=== PATIENT | female | born 1960 | race Caucasian/White ===

== ENCOUNTER 2021-10-09 23:21 | Inpatient (IN) | payer MEDICARE, OTHER ==
[2021-10-10] MEDS ORDERED: ONDANSETRON 4 MG/2 ML VIAL IVP STA (00:50)
[2021-10-10] MEDS ORDERED: MORPHINE SULFATE 4 MG/ML SYRINGE IVP STA (00:50)
[2021-10-10 00:55] LABS: Albumin 2.7 g/dL (3.5-5.0); Calcium 8.1 mg/dL (8.4-10.2); Potassium 3.7 mmol/L (3.5-5.1); Total Bilirubin 0.4 mg/dL (0.2-1.3); Total Protein 5.4 g/dL (6.3-8.2)
--- NOTE | 2021-10-10 01:30 | US ---
EXAMINATION TYPE: US transvaginal DATE OF EXAM: 10/10/2021 COMPARISON: NONE CLINICAL HISTORY: Heavy vaginal bleeding. Heavy vaginal bleeding. Hx ablation in 1994. G0. LMP unknow n per patient. TECHNIQUE: Transvaginal (TV). Limited, pt is 417 lbs. Date of LMP: Unknown. EXAM MEASUREMENTS: Uterus: Measured at 8.4 x 6.1 x 5.5 cm. Limited. 1. Uterus: What appears to be uterine tissue within the midline pelvis appears to be very heterogene ous. Hyperechoic area seen measurin.1 x 0.9 x 0.7 cm. 2. Endometrium: Unable to define. 3. Right Ovary: Not seen. 4. Left Ovary: Not seen. 5. Bilateral Adnexa: Not able to clearly evaluate. 6. Posterior cul-de-sac: Not well seen. IMPRESSION: Uterus appears globular. Endometrium not identified. No adnexal mass. Ovaries not seen. No free fluid .
[2021-10-10 01:31] LABS: INR 3.4 (<1.2); Prothrombin Time 33.1 sec (9.0-12.0)
[2021-10-10 01:58] LABS: Anisocytosis Slight; Basophils % (A) 0 %; Eosinophils # (A) 0.2 k/uL (0-0.7); Eosinophils % (A) 2 %; Hypochromasia Marked; Lymphocytes # (A) 0.8 k/uL (1.0-4.8); Lymphocytes % (A) 8 %; MCH 20.8 pg (25.0-35.0); MCHC 28.4 g/dL (31.0-37.0); MCV 73.1 fL (80.0-100.0); Mean Platelet Volume 7.5; Microcytosis Moderate; Monocytes # (A) 0.6 k/uL (0-1.0); Monocytes % (A) 6 %; Neutrophils # (A) 8.2 k/uL (1.3-7.7); Neutrophils % (A) 82 %; Platelet Count 373 k/uL (150-450); Poikilocytosis Moderate; RBC 2.74 m/uL (3.80-5.40); RDW 17.2 % (11.5-15.5)
[2021-10-10 02:00] LABS: HGB 5.7 gm/dL (11.4-16.0)
--- NOTE | 2021-10-10 03:32 | P.OBCN ---
History of Present Illness Consult date: 10/10/21 Requesting physician: Jessica Severino Reason for consult: other (Post Menopausal bleeding) Chief complaint: Postmenopausal bleeding History of present illness: Fiorella is a very pleasant, morbidly obese 61-year-old female. She is a 0 para 0 who relates that for the past year she has had some light spotting. She relates that she told her primary care provider at one point and they believe she may have a bladder infection so they started her on antibiotic. She denies having any period-like bleeding until this evening. At approximately 7:30 this evening she began having very heavy vaginal bleeding that did not stop. She called EMS and was brought to [facility] emergency department where her hemoglobin is noted to be 5.7. She is in the process of receiving 2 units of packed red blood cells at this time. An ultrasound was done showing was essentially normal size uterus but it is somewhat globular and heterogeneous. The endometrium noted is not clearly visualized but she it is noted she did have a ablation procedure in 1994 by a physician at a specialty Hospital in the city due to her morbid obesity. She has not had a Pap smear in she cannot tell me how long. She has no idea if she is ever had an abnormal Pap smear she relates that she was up doing housework when she noticed bleeding start. She denies any recent trauma or lacerations in around the vagina. Her past medical history is significant for hypertension, heart disease, diabetes, and atrial fibrillation for which she is taking Coumadin Past surgical history prior ablation of the uterus and nasal surgery On physical exam currently her vital signs are stable. I did do a bimanual exam and could feel the cervix. The left side of the cervix felt smooth the right side is a little more difficult to determine. I did not feel any fungating masses course sponge for masses on the outer cervix and its with in dimension did not feel grossly out of what I would expect. There were blood clots in the vagina. There is no grossly active bleeding that I know on exam. She did not tolerate and refused a speculum exam. She did have a transvaginal ultrasound also did not identify any cervical changes. Assessment postmenopausal bleeding with acute blood loss anemia compounded by significant medical issues including concurrent INR of above 3. This level may be a correct level for her due to her increased risk of blood clots sedentary lifestyle and her atrial fibrillation. But it is most certainly contributing to the amount of bleeding she is doing now Plan at some point she will need A Tissue Sampling from the Lining of the Uterus with Direct Visualization of the Cervix. It Is Unlikely She Would Tolerate This without Being under Anesthetic. However, She Is Significant Risk Factors for S urgery and Consideration for Tertiary Care Center Should Be Made in the off Chance That Something Does Happen during the Process of Biopsy and a perforation or inability to control bleeding is encountered. It would be very difficult to change from a D&C to a hysterectomy in an emergent setting like that due to her large body habitus and other medical issues. I did discuss the possibility of doing a D&C here which I would be fine with if that is what is required. That said, I would want medicine and hematology to clear her as well as potentially cardiology before taking her to surgery so that she is optimized for surgery. It is also noted that she has been drinking water and pop all evening and at this time she would not be eligible to have surgery unless the bleeding was significantly heavier than it is right now as she is not nothing by mouth. Certainly consideration for making her nothing by mouth tonight at midnight and planning for a director special education D&C on Saturday, October 11 would hopefully allow us time to have her optimized for surgery and decide if any other treatments or consideration for again potential transfer to either [facility] another tertiary care center are warranted. Past Medical History Past Medical History: Atrial Fibrillation, Diabetes Mellitus, Hypertension, Thyroid Disorder History of Any Multi-Drug Resistant Organisms: None Reported Past Surgical History: Ablation Additional Past Surgical History / Comment(s): Ablation in Smoking Status: Never smoker Past Alcohol Use History: None Reported Past Drug Use History: None Reported Medications and Allergies Allergies Allergy/AdvReac Type Severity Reaction Status Date / Time No Known Allergies Allergy Verified 10/10/21 01:29 Exam Osteopathic Statement: *. No significant issues noted on an osteopathic structu ral exam other than those noted in the History and Physical/Consult. Vital Signs Temp Pulse Resp BP Pulse Ox 10/10/21 03:15 98.1 F 58 L 18 135/53 96 10/10/21 01:20 61 18 116/49 98 10/09/21 23:39 64 18 99 10/09/21 23:30 97.9 F 64 18 147/63 99 Intake and Output 10/09/21 10/09/21 10/10/21 14:59 22:59 06:59 Intake Total 0 Balance 0 Intake: Blood Product 0 Rc Irr As1 Unit 0 [id number] Other: Weight 189.148 kg Results Result Diagrams: 10/10/21 01:15 10/10/21 00:16 Abnormal Lab Results - Last 24 Hours (Table) 10/10/21 10/10/21 10/10/21 Range/Units 00:16 00:16 01:15 RBC (3.80-5.40) m/uL Hgb (11.4-16.0) gm/dL Hct (34.0-46.0) % MCV (80.0-100.0) fL MCH (25.0-35.0) pg MCHC (31.0-37.0) g/dL RDW (11.5-15.5) % Neutrophils # (1.3-7.7) k/uL Lymphocytes # (1.0-4.8) k/uL PT 33.1 H (9.0-12.0) sec INR 3.4 H (<1.2) Sodium 133 L (137-145) mmol/L Carbon Dioxide 21 L (22-30) mmol/L BUN 19 H (7-17) mg/dL Creatinine 1.06 H (0.52-1.04) mg/dL Glucose 214 H (74-99) mg/dL Calcium 8.1 L (8.4-10.2) mg/dL Total Protein 5.4 L (6.3-8.2) g/dL Albumin 2.7 L (3.5-5.0) g/dL Crossmatch See Detail 10/10/21 Range/Units 01:15 RBC 2.74 L (3.80-5.40) m/uL Hgb 5.7 L* (11.4-16.0) gm/dL Hct 20.0 L (34.0-46.0) % MCV 73.1 L (80.0-100.0) fL MCH 20.8 L (25.0-35.0) pg MCHC 28.4 L (31.0-37.0) g/dL RDW 17.2 H (11.5-15.5) % Neutrophils # 8.2 H (1.3-7.7) k/uL Lymphocytes # 0.8 L (1.0-4.8) k/uL PT (9.0-12.0) sec INR (<1.2) Sodium (137-145) mmol/L Carbon Dioxide (22-30) mmol/L BUN (7-17) mg/dL Creatinine (0.52-1.04) mg/dL Glucose (74-99) mg/dL Calcium (8.4-10.2) mg/dL Total Protein (6.3-8.2) g/dL Albumin (3.5-5.0) g/dL Crossmatch
[2021-10-10 03:36] LABS: Appearance,Urine Clear (Clear); Bacteria,Urine Many /hpf; Bilirubin,Urine Negative (Negative); Blood,Urine Moderate (Negative); Color,Urine Yellow; Glucose,Urine (UA) Negative (Negative); Hyaline Casts,Urine 42 /lpf (0-2); Ketones,Urine Negative (Negative); Leukocyte Esterase,Urine Trace (Negative); Mucus,Urine Occasional /hpf; Nitrite,Urine Positive (Negative); PH, Urine 5.5 (5.0-8.0); Protein,Urine Trace (Negative); RBC,Urine 19 /hpf (0-5); Specific Gravity,Urine 1.025 (1.001-1.035); Squamous Epithelial Cell,Urine <1 /hpf (0-4); WBC,Urine 6 /hpf (0-5)
[2021-10-10] MEDS ORDERED: cefTRIAXone IN SWFI 1,000 MG/10 ML SYRINGE IVP STA (03:38)
[2021-10-10] MEDS ORDERED: NALOXONE 0.4 MG/ML 1 ML VIAL IV PRN (03:40)
[2021-10-10] MEDS ORDERED: PHYTONADIONE ORAL 5 MG/5 ML ORAL.SYRG PO STA (03:40)
--- NOTE | 2021-10-10 04:19 | ED ---
General Adult HPI - General Chief complaint: Vaginal Bleeding Stated complaint: Vaginal Bleeding Time Seen by Provider: 10/09/21 23:48 Source: patient, EMS Mode of arrival: EMS - History of Present Illness Initial comments: 61 year-old female patient present presents for heavy vaginal bleeding since 7pm. States she is passing large clots frequently. She reports left pelvic pain with radiation to her back. Reports feeling fatigued and weak. Denies shortness of breath. States she did have a uterine ablation in 1994. States it has been many years since she has seen a straightener hand. States that her physician at one point thought she might of had a bad bladder infection with hemorrhagic cystitis. Patient states she has had intermittent bleeding at nighttime for quite some time now. States this is the worst the bleeding has ever been. She does take Coumadin for atrial fibrillation. Patient denies any recent rash, fever, chills, cough, shortness of breath, chest pain, nausea, vomiting, diarrhea, constipation, numbness, tingling, headache, visual changes, or any other complaints. - Related Data Allergies Allergy/AdvReac Type Severity Reaction Status Date / Time No Known Allergies Allergy Verified 10/10/21 01:29 Review of Systems ROS Statement: Those systems with pertinent positive or pertinent negative responses have been documented in the HPI. ROS Other: All systems not noted in ROS Statement are negative. Past Medical History Past Medical History: Atrial Fibrillation, Diabetes Mellitus, Hypertension, Thyroid Disorder History of Any Multi-Drug Resistant Organisms: None Reported Past Surgical History: Ablation Additional Past Surgical History / Comment(s): Ablation in Smoking Status: Never smoker Past Alcohol Use History: None Reported Past Drug Use History: None Reported General Exam General appearance: alert, in no apparent distress, other (This is a well- developed, obese adult female patient in no acute distress.) ENT exam: Present: normal exam, normal oropharynx, mucous membranes moist Respiratory exam: Present: normal lung sounds bilaterally. Absent: respiratory distress, wheezes, rales, rhonchi, stridor Cardiovascular Exam: Present: regular rate, normal rhythm, normal heart sounds. Absent: systolic murmur, diastolic murmur, rubs, gallop, clicks GI/Abdominal exam: Present: soft, normal bowel sounds. Absent: distended, tenderness, guarding, rebound, rigid External exam: Present: other (Blood clots from the vaginal canal.) Neurological exam: Present: alert, oriented X3, CN II-XII intact Psychiatric exam: Present: normal affect, normal mood Skin exam: Present: warm, dry, intact, pallor. Absent: rash Course Vital Signs 10/09/21 10/09/21 10/10/21 23:30 23:39 01:20 Temperature 97.9 F Pulse Rate 64 64 61 Respiratory 18 18 18 Rate Blood Pressure 147/63 116/49 O2 Sat by Pulse 99 99 98 Oximetry 10/10/21 10/10/21 10/10/21 03:15 03:25 03:55 Temperature 98.1 F 98.2 F 98.7 F Pulse Rate 58 L 60 54 L Respiratory 18 20 18 Rate Blood Pressure 135/53 140/48 114/45 O2 Sat by Pulse 96 96 97 Oximetry 10/10/21 04:03 Temperature Pulse Rate 55 L Respiratory 18 Rate Blood Pressure 114/45 O2 Sat by Pulse 96 Oximetry EKG Findings - EKG Comments: EKG Findings:: EKG obtained at 11 26 shows normal sinus rhythm with a ventricular rate of 62, RI interval 196, QRS duration 82, QT 436, QTc 442. No evidence of ST elevation or depression Medical Decision Making - Medical Decision Making 61-year-old female patient presents to the emergency department today for evaluation of heavy vaginal bleeding with passage of large clots. Vital signs were directable. Labs reviewed and did reveal hemoglobin of 5.7. Patient did pass several large clots while here. Dr. Nathan was in to evaluate the patient. She'll be admitted to the hospital for further evaluation possible D&C. We'll consult hematology. He is given 2 units of packed red blood cells. She is agreeable this plan. Case discussed with my attending Dr. Guerra. - Lab Data Result diagrams: 10/10/21 01:15 10/10/21 00:16 Lab Results 10/10/21 10/10/21 10/10/21 Range/Units 00:16 00:16 01:15 WBC (3.8-10.6) k/uL RBC (3.80-5.40) m/uL Hgb (11.4-16.0) gm/dL Hct (34.0-46.0) % MCV (80.0-100.0) fL MCH (25.0-35.0) pg MCHC (31.0-37.0) g/dL RDW (11.5-15.5) % Plt Count (150-450) k/uL MPV Neutrophils % % Lymphocytes % % Monocytes % % Eosinophils % % Basophils % % Neutrophils # (1.3-7.7) k/uL Lymphocytes # (1.0-4.8) k/uL Monocytes # (0-1.0) k/uL Eosinophils # (0-0.7) k/uL Basophils # (0-0.2) k/uL Hypochromasia Poikilocytosis Anisocytosis Microcytosis PT 33.1 H (9.0-12.0) sec INR 3.4 H (<1.2) Sodium 133 L (137-145) mmol/L Potassium 3.7 (3.5-5.1) mmol/L Chloride 105 (98-107) mmol/L Carbon Dioxide 21 L (22-30) mmol/L Anion Gap 7 mmol/L BUN 19 H (7-17) mg/dL Creatinine 1.06 H (0.52-1.04) mg/dL Est GFR (CKD-EPI)AfAm 65 (>60 ml/min/1.73 sqM) Est GFR (CKD-EPI)NonAf 57 (>60 ml/min/1.73 sqM) Glucose 214 H (74-99) mg/dL Calcium 8.1 L (8.4-10.2) mg/dL Total Bilirubin 0.4 (0.2-1.3) mg/dL AST 21 (14-36) U/L ALT 11 (4-34) U/L Alkaline Phosphatase 75 (38-126) U/L Total Protein 5.4 L (6.3-8.2) g/dL Albumin 2.7 L (3.5-5.0) g/dL Urine Color Urine Appearance (Clear) Urine pH (5.0-8.0) Ur Specific [place] (1.001-1.035) Urine Protein (Negative) Urine Glucose (UA) (Negative) Urine Ketones (Negative) Urine Blood (Negative) Urine Nitrite (Negative) Urine Bilirubin (Negative) Urine Urobilinogen (<2.0) mg/dL Ur Leukocyte Esterase (Negative) Urine RBC (0-5) /hpf Urine WBC (0-5) /hpf Urine WBC Clumps (None) /hpf Ur Squamous Epith Cells (0-4) /hpf Urine Bacteria (None) /hpf Hyaline Casts (0-2) /lpf Urine Mucus (None) /hpf Urine HCG, Qual (Not Detectd) Blood Type AB Positive Blood Type Confirm Blood Type Recheck No Previous Record Bld Type Recheck Status CABO Indicated Antibody Screen NEGATIVE Crossmatch See Detail Spec Expiration Date 10/13/2021 - 231410/10/21 10/10/21 10/10/21 Range/Units 01:15 01:17 02:49 WBC 10.0 (3.8-10.6) k/uL RBC 2.74 L (3.80-5.40) m/uL Hgb 5.7 L* (11.4-16.0) gm/dL Hct 20.0 L (34.0-46.0) % MCV 73.1 L (80.0-100.0) fL MCH 20.8 L (25.0-35.0) pg MCHC 28.4 L (31.0-37.0) g/dL RDW 17.2 H (11.5-15.5) % Plt Count 373 (150-450) k/uL MPV 7.5 Neutrophils % 82 % Lymphocytes % 8 % Monocytes % 6 % Eosinophils % 2 % Basophils % 0 % Neutrophils # 8.2 H (1.3-7.7) k/uL Lymphocytes # 0.8 L (1.0-4.8) k/uL Monocytes # 0.6 (0-1.0) k/uL Eosinophils # 0.2 (0-0.7) k/uL Basophils # 0.0 (0-0.2) k/uL Hypochromasia Marked Poikilocytosis Moderate Anisocytosis Slight Microcytosis Moderate PT (9.0-12.0) sec INR (<1.2) Sodium (137-145) mmol/L Potassium (3.5-5.1) mmol/L Chloride (98-107) mmol/L Carbon Dioxide (22-30) mmol/L Anion Gap mmol/L BUN (7-17) mg/dL Creatinine (0.52-1.04) mg/dL Est GFR (CKD-EPI)AfAm (>60 ml/min/1.73 sqM) Est GFR (CKD-EPI)NonAf (>60 ml/min/1.73 sqM) Glucose (74-99) mg/dL Calcium (8.4-10.2) mg/dL Total Bilirubin (0.2-1.3) mg/dL AST (14-36) U/L ALT (4-34) U/L Alkaline Phosphatase (38-126) U/L Total Protein (6.3-8.2) g/dL Albumin (3.5-5.0) g/dL Urine Color Yellow Urine Appearance Clear (Clear) Urine pH 5.5 (5.0-8.0) Ur Specific [place] 1.025 (1.001-1.035) Urine Protein Trace H (Negative) Urine Glucose (UA) Negative (Negative) Urine Ketones Negative (Negative) Urine Blood Moderate H (Negative) Urine Nitrite Positive H (Negative) Urine Bilirubin Negative (Negative) Urine Urobilinogen 2.0 (<2.0) mg/dL Ur Leukocyte Esterase Trace H (Negative) Urine RBC 19 H (0-5) /hpf Urine WBC 6 H (0-5) /hpf Urine WBC Clumps Rare H (None) /hpf Ur Squamous Epith Cells <1 (0-4) /hpf Urine Bacteria Many H (None) /hpf Hyaline Casts 42 H (0-2) /lpf Urine Mucus Occasional H (None) /hpf Urine HCG, Qual (Not Detectd) Blood Type Blood Type Confirm AB Positive Blood Type Recheck Bld Type Recheck Status Antibody Screen Crossmatch Spec Expiration Date 10/10/21 Range/Units 02:49 WBC (3.8-10.6) k/uL RBC (3.80-5.40) m/uL Hgb (11.4-16.0) gm/dL Hct (34.0-46.0) % MCV (80.0-100.0) fL MCH (25.0-35.0) pg MCHC (31.0-37.0) g/dL RDW (11.5-15.5) % Plt Count (150-450) k/uL MPV Neutrophils % % Lymphocytes % % Monocytes % % Eosinophils % % Basophils % % Neutrophils # (1.3-7.7) k/uL Lymphocytes # (1.0-4.8) k/uL Monocytes # (0-1.0) k/uL Eosinophils # (0-0.7) k/uL Basophils # (0-0.2) k/uL Hypochromasia Poikilocytosis Anisocytosis Microcytosis PT (9.0-12.0) sec INR (<1.2) Sodium (137-145) mmol/L Potassium (3.5-5.1) mmol/L Chloride (98-107) mmol/L Carbon Dioxide (22-30) mmol/L Anion Gap mmol/L BUN (7-17) mg/dL Creatinine (0.52-1.04) mg/dL Est GFR (CKD-EPI)AfAm (>60 ml/min/1.73 sqM) Est GFR (CKD-EPI)NonAf (>60 ml/min/1.73 sqM) Glucose (74-99) mg/dL Calcium (8.4-10.2) mg/dL Total Bilirubin (0.2-1.3) mg/dL AST (14-36) U/L ALT (4-34) U/L Alkaline Phosphatase (38-126) U/L Total Protein (6.3-8.2) g/dL Albumin (3.5-5.0) g/dL Urine Color Urine Appearance (Clear) Urine pH (5.0-8.0) Ur Specific [place] (1.001-1.035) Urine Protein (Negative) Urine Glucose (UA) (Negative) Urine Ketones (Negative) Urine Blood (Negative) Urine Nitrite (Negative) Urine Bilirubin (Negative) Urine Urobilinogen (<2.0) mg/dL Ur Leukocyte Esterase (Negative) Urine RBC (0-5) /hpf Urine WBC (0-5) /hpf Urine WBC Clumps (None) /hpf Ur Squamous Epith Cells (0-4) /hpf Urine Bacteria (None) /hpf Hyaline Casts (0-2) /lpf Urine Mucus (None) /hpf Urine HCG, Qual Not Detected (Not Detectd) Blood Type Blood Type Confirm Blood Type Recheck Bld Type Recheck Status Antibody Screen Crossmatch Spec Expiration Date - Radiology Data Radiology results: report reviewed, image reviewed Sound was obtained. Report was reviewed in its entirety. Impression by Dr. Miles shows uterus appears globular. Endometrium not identified. No adnexal mass. Ovaries not seen. No free fluid. Disposition Clinical Impression: Vaginal hemorrhage, Anemia, UTI (urinary tract infection) Disposition: ADMITTED IP TO THIS HOSP Condition: Serious Referrals: CASSANDRA MONTANO DO [Primary Care Provider] - 1-2 days Decision to Admit Reason: Admit from EC Decision Date: 10/10/21 Decision Time: 04:27
[2021-10-10 13:07] LABS: Anisocytosis Slight; Basophils # (A) 0.1 k/uL (0-0.2); Basophils % (A) 1 %; Eosinophils # (A) 0.3 k/uL (0-0.7); Eosinophils % (A) 3 %; HCT 24.8 % (34.0-46.0); Hypochromasia Marked; Lymphocytes # (A) 1.1 k/uL (1.0-4.8); Lymphocytes % (A) 10 %; MCHC 29.9 g/dL (31.0-37.0); MCV 76.8 fL (80.0-100.0); Mean Platelet Volume 7.4; Microcytosis Slight; Monocytes # (A) 0.7 k/uL (0-1.0); Monocytes % (A) 7 %; Neutrophils # (A) 8.2 k/uL (1.3-7.7); Neutrophils % (A) 78 %; Platelet Count 336 k/uL (150-450); Poikilocytosis Marked; RBC 3.22 m/uL (3.80-5.40); RDW 18.1 % (11.5-15.5); WBC 10.6 k/uL (3.8-10.6)
[2021-10-10 13:10] LABS: INR 2.7 (<1.2); Prothrombin Time 25.7 sec (9.0-12.0)
[2021-10-10 13:15] LABS: HGB 7.4 gm/dL (11.4-16.0)
[2021-10-10] MEDS ORDERED: NYSTATIN 100,000UNIT/GM CREAM 30 GM TUBE TOPICAL PRN (13:33)
[2021-10-10] MEDS ORDERED: NITROGLYCERIN SL TABS 0.4 MG TAB SUBLINGUAL PRN (13:49)
--- NOTE | 2021-10-10 14:23 | P.HPIM ---
History of Present Illness 61-year-old pleasant female came in with complains of vaginal bleeding is been going on for last couple days multiple episodes of bleeding with clots. Patient last menstrual cycle was many years ago. Patient is on Coumadin for atrial fibrillation patient INR is 3.7 on admission. Patient denied any symptoms of dysuria on admission but now she has some discomfort with his the [place] cath patient urine is bit abnormal that's because of the vaginal bleeding no fever no chills. Patient is found to have hemoglobin of 5.4 after transfusion of 2 units of PRBC, her present hemoglobin is 7.4. Patient was evaluated by COMMUNITY OUTREACH MANAGER services a nd patient will undergo dilatation and curettage tomorrow. REVIEW OF SYSTEMS: CONSTITUTIONAL: No fever, no malaise, no fatigue. HEENT: No recent visual problems or hearing problems. Denied any sore throat. CARDIOVASCULAR: No chest pain, orthopnea, PND, no palpitations, no syncope. PULMONARY: No shortness of breath, no cough, no hemoptysis. GASTROINTESTINAL: No diarrhea, no nausea, no vomiting, no abdominal pain. NEUROLOGICAL: No headaches, no weakness, no numbness. HEMATOLOGICAL: Denies any bleeding or petechiae. GENITOURINARY: Denies any burning micturition, frequency, or urgency. MUSCULOSKELETAL/RHEUMATOLOGICAL: Denies any joint pain, swelling, or any muscle pain. ENDOCRINE: Denies any polyuria or polydipsia. The rest of the 14-point review of systems is negative. PHYSICAL EXAMINATION: GENERAL: The patient is alert and oriented x3, not in any acute distress. Well developed, well nourished. HEENT: Pupils are round and equally reacting to light. EOMI. No scleral icterus. Does have conjunctival pallor. Normocephalic, atraumatic. No pharyngeal erythema. No thyromegaly. CARDIOVASCULAR: S1 and S2 present. No murmurs, rubs, or gallops. PULMONARY: Chest is clear to auscultation, no wheezing or crackles. ABDOMEN: Soft, nontender, nondistended, normoactive bowel sounds. No palpable organomegaly. MUSCULOSKELETAL: No joint swelling or deformity. EXTREMITIES: No cyanosis, clubbing, or pedal edema. NEUROLOGICAL: Gross neurological examination did not reveal any focal deficits. SKIN: No rashes. Assessment and plan -Vaginal bleeding patient is on anticoagulation but is in the therapeutic range for atrial fibrillation patient need to be evaluated for an elevated cancer patient undergo D&C tomorrow -Symptomatic anemia due to acute blood loss from vaginal bleeding for which patient received a 2 units of PRBC transfusion and Coumadin is being held patient received vitamin K. -Proximal A. fib presently sinus rhythm -Type 2 diabetes mellitus -Gastroesophageal reflux disease next and hypertension -Hypothyroidism DVT prophylaxis: No pharmacological anticoagulation because of her active bleeding Past Medical History Past Medical History: Atrial Fibrillation, Diabetes Mellitus, GERD/Reflux, Hypertension, Thyroid Disorder Additional Past Medical History / Comment(s): Pt states she has had intermittent vaginal bleeding over past one year, NIDDM type II, UTIs, hypothyroid, chronic low back pain, occasional bilateral leg pain at night. History of Any Multi-Drug Resistant Organisms: None Reported Past Surgical History: Heart Catheterization, Tonsillectomy, Uterine Ablation Additional Past Surgical History / Comment(s): Nasal fracture with surgery, wisdom teeth extractions. Past Anesthesia/Blood Transfusion Reactions: Postoperative Nausea & Vomiting (PONV) Additional Past Anesthesia/Blood Transfusion Reaction / Comment(s): Pt received blood this hospitalization without reaction. Smoking Status: Former smoker Past Alcohol Use History: None Reported Past Drug Use History: None Reported - Past Family History Father Family Medical History: Cancer Additional Family Medical History / Comment(s): Father of lung cancer. He was a smoker. Mother Family Medical History: Vascular Disorder Additional Family Medical History / Comment(s): Mother of a cerebral aneurysm at the age of 58 yrs. Medications and Allergies Home Medications Medication Instructions Recorded Confirmed Type Carvedilol [Coreg] 25 mg PO BID 10/10/21 10/10/21 History Gabapentin [Neurontin] 100 mg PO HS 10/10/21 10/10/21 History Levothyroxine Sodium 200 mcg PO DAILY 10/10/21 10/10/21 History Nitroglycerin Sl Tabs [Nitrostat] 0.4 mg SL Q5M PRN 10/10/21 10/10/21 History Nystatin 100,000Unit/gm Cream 1 applic TOPICAL BID PRN 10/10/21 10/10/21 History [Mycostatin Cream] Omeprazole 20 mg PO Q48H 10/10/21 10/10/21 History Warfarin [Coumadin] 3 mg PO HS 10/10/21 10/10/21 History metFORMIN HCL 500 mg PO AC-TID 10/10/21 10/10/21 History Allergies Allergy/AdvReac Type Severity Reaction Status Date / Time No Known Allergies Allergy Verified 10/10/21 07:42 Physical Exam Vitals: Vital Signs Temp Pulse Pulse Resp BP BP Pulse Ox 10/10/21 13:37 52 L 18 10/10/21 11:50 98.2 F 52 L 18 118/41 96 10/10/21 09:33 97.8 F 60 16 145/81 98 10/10/21 08:34 56 L 18 10/10/21 08:00 97.6 F 52 L 18 123/41 99 10/10/21 06:45 98.4 F 59 L 20 133/76 97 10/10/21 06:15 98.4 F 64 20 124/65 100 10/10/21 06:05 98.2 F 54 L 20 111/47 98 10/10/21 05:44 98.3 F 57 L 18 133/56 98 10/10/21 05:41 98.3 F 57 L 18 133/56 97 10/10/21 04:03 55 L 18 114/45 96 10/10/21 03:55 98.7 F 54 L 18 114/45 97 10/10/21 03:25 98.2 F 60 20 140/48 96 10/10/21 03:15 98.1 F 58 L 18 135/53 96 10/10/21 01:20 61 18 116/49 98 10/09/21 23:39 64 18 99 10/09/21 23:30 97.9 F 64 18 147/63 99 Intake and Output 10/09/21 10/10/21 10/10/21 22:59 06:59 14:59 Intake Total 310 310 Balance 310 310 Intake: Blood Product 310 310 Rc As-1 Unit 0 310 [id number] Rc Irr As1 Unit 310 [id number] Other: Voiding Method Bedside Commode # Voids 2 Weight 189.148 kg 189.148 kg Results CBC & Chem 7: 10/10/21 12:37 10/10/21 00:16 Labs: Abnormal Lab Results - Last 24 Hours (Table) 10/10/21 10/10/21 10/10/21 Range/Units 00:16 00:16 01:15 RBC (3.80-5.40) m/uL Hgb (11.4-16.0) gm/dL Hct (34.0-46.0) % MCV (80.0-100.0) fL MCH (25.0-35.0) pg MCHC (31.0-37.0) g/dL RDW (11.5-15.5) % Neutrophils # (1.3-7.7) k/uL Lymphocytes # (1.0-4.8) k/uL PT 33.1 H (9.0-12.0) sec INR 3.4 H (<1.2) Sodium 133 L (137-145) mmol/L Carbon Dioxide 21 L (22-30) mmol/L BUN 19 H (7-17) mg/dL Creatinine 1.06 H (0.52-1.04) mg/dL Glucose 214 H (74-99) mg/dL Calcium 8.1 L (8.4-10.2) mg/dL Total Protein 5.4 L (6.3-8.2) g/dL Albumin 2.7 L (3.5-5.0) g/dL Urine Protein (Negative) Urine Blood (Negative) Urine Nitrite (Negative) Ur Leukocyte Esterase (Negative) Urine RBC (0-5) /hpf Urine WBC (0-5) /hpf Urine WBC Clumps (None) /hpf Urine Bacteria (None) /hpf Hyaline Casts (0-2) /lpf Urine Mucus (None) /hpf Crossmatch See Detail 10/10/21 10/10/21 10/10/21 Range/Units 01:15 02:49 12:37 RBC 2.74 L 3.22 L (3.80-5.40) m/uL Hgb 5.7 L* 7.4 L D (11.4-16.0) gm/dL Hct 20.0 L 24.8 L (34.0-46.0) % MCV 73.1 L 76.8 L (80.0-100.0) fL MCH 20.8 L 23.0 L (25.0-35.0) pg MCHC 28.4 L 29.9 L (31.0-37.0) g/dL RDW 17.2 H 18.1 H (11.5-15.5) % Neutrophils # 8.2 H 8.2 H (1.3-7.7) k/uL Lymphocytes # 0.8 L (1.0-4.8) k/uL PT (9.0-12.0) sec INR (<1.2) Sodium (137-145) mmol/L Carbon Dioxide (22-30) mmol/L BUN (7-17) mg/dL Creatinine (0.52-1.04) mg/dL Glucose (74-99) mg/dL Calcium (8.4-10.2) mg/dL Total Protein (6.3-8.2) g/dL Albumin (3.5-5.0) g/dL Urine Protein Trace H (Negative) Urine Blood Moderate H (Negative) Urine Nitrite Positive H (Negative) Ur Leukocyte Esterase Trace H (Negative) Urine RBC 19 H (0-5) /hpf Urine WBC 6 H (0-5) /hpf Urine WBC Clumps Rare H (None) /hpf Urine Bacteria Many H (None) /hpf Hyaline Casts 42 H (0-2) /lpf Urine Mucus Occasional H (None) /hpf Crossmatch 10/10/21 Range/Units 12:37 RBC (3.80-5.40) m/uL Hgb (11.4-16.0) gm/dL Hct (34.0-46.0) % MCV (80.0-100.0) fL MCH (25.0-35.0) pg MCHC (31.0-37.0) g/dL RDW (11.5-15.5) % Neutrophils # (1.3-7.7) k/uL Lymphocytes # (1.0-4.8) k/uL PT 25.7 H (9.0-12.0) sec INR 2.7 H (<1.2) Sodium (137-145) mmol/L Carbon Dioxide (22-30) mmol/L BUN (7-17) mg/dL Creatinine (0.52-1.04) mg/dL Glucose (74-99) mg/dL Calcium (8.4-10.2) mg/dL Total Protein (6.3-8.2) g/dL Albumin (3.5-5.0) g/dL Urine Protein (Negative) Urine Blood (Negative) Urine Nitrite (Negative) Ur Leukocyte Esterase (Negative) Urine RBC (0-5) /hpf Urine WBC (0-5) /hpf Urine WBC Clumps (None) /hpf Urine Bacteria (None) /hpf Hyaline Casts (0-2) /lpf Urine Mucus (None) /hpf Crossmatch Thrombosis Risk Factor Assmnt - Choose All That Apply Any of the Below Risk Factors Present?: Yes Each Factor Represents 1 point: Obesity (BMI >25) Other Risk Factors: Yes Each Risk Factor Represents 2 Points: Age 61-74 years Other congenital or acquired thrombophilia - If yes, enter type in comment: No Thrombosis Risk Factor Assessment Total Risk Factor Score: 3 Thrombosis Risk Factor Assessment Level: Moderate Risk
[2021-10-10 16:27] LABS: % Iron Saturation 4.97 (12.00-45.00); Ferritin 21.2 ng/mL (10.0-291.0)
[2021-10-10] MEDS ORDERED: INSULIN ASPART (NovoLOG) 100 UNIT/ML VIAL SQ SCH (17:30)
--- NOTE | 2021-10-10 17:48 | P.CONS ---
History of Present Illness - Reason for Consult Consult date: 10/10/21 anemia Requesting physician: Jessica Severino - Chief Complaint intractable vaginal bleeding - History of Present Illness Ms. Smith is a pleasant 61-year-old female patient we have been asked to see regarding microcytic, hypochromic anemia. Patient's began experiencing vaginal bleeding about a year ago. Small amounts, intermittently, not associated with any other symptoms. Yesterday at 7:30 PM she began having significant vaginal bleeding. She was unable to stop it. This led her to the ER to be evaluated. Hemoglobin 5.7 on admit, she is status post 2 units of PRBCs. Her INR was 3.4, she is on Coumadin for atrial fibrillation, she was given 5 mg of vitamin K. Patient denies any other bleeding. she states that the vaginal bleeding has slowed down since admission. She has no prior history of anemia or being anemic, no history of oral iron. She believes that she did a cologuard test about one year ago. No history of cancer. No history of stroke, blood clots, blood thinners. Review of Systems 14 point review of systems is negative except as stated in HPI Past Medical History Past Medical History: Atrial Fibrillation, Diabetes Mellitus, GERD/Reflux, Hypertension, Thyroid Disorder Additional Past Medical History / Comment(s): Pt states she has had intermittent vaginal bleeding over past one year, NIDDM type II, UTIs, hypothyroid, chronic low back pain, occasional bilateral leg pain at night. History of Any Multi-Drug Resistant Organisms: None Reported Past Surgical History: Heart Catheterization, Tonsillectomy, Uterine Ablation Additional Past Surgical History / Comment(s): Nasal fracture with surgery, wisdom teeth extractions. Past Anesthesia/Blood Transfusion Reactions: Postoperative Nausea & Vomiting (PONV) Additional Past Anesthesia/Blood Transfusion Reaction / Comm: Pt received blood this hospitalization without reaction. Smoking Status: Former smoker Past Alcohol Use History: None Reported Past Drug Use History: None Reported - Past Family History Father Family Medical History: Cancer Additional Family Medical History / Comment(s): Father of lung cancer. He was a smoker. Mother Family Medical History: Vascular Disorder Additional Family Medical History / Comment(s): Mother of a cerebral aneurysm at the age of 58 yrs. Medications and Allergies Home Medications Medication Instructions Recorded Confirmed Type Carvedilol [Coreg] 25 mg PO BID 10/10/21 10/10/21 History Gabapentin [Neurontin] 100 mg PO HS 10/10/21 10/10/21 History Levothyroxine Sodium 200 mcg PO DAILY 10/10/21 10/10/21 History Nitroglycerin Sl Tabs [Nitrostat] 0.4 mg SL Q5M PRN 10/10/21 10/10/21 History Nystatin 100,000Unit/gm Cream 1 applic TOPICAL BID PRN 10/10/21 10/10/21 History [Mycostatin Cream] Omeprazole 20 mg PO Q48H 10/10/21 10/10/21 History Warfarin [Coumadin] 3 mg PO HS 10/10/21 10/10/21 History metFORMIN HCL 500 mg PO AC-TID 10/10/21 10/10/21 History Allergies Allergy/AdvReac Type Severity Reaction Status Date / Time No Known Allergies Allergy Verified 10/10/21 07:42 Physical Exam Vitals: Vital Signs Temp Pulse Pulse Resp BP BP Pulse Ox 10/10/21 09:33 97.8 F 60 16 145/81 98 10/10/21 08:34 56 L 18 10/10/21 08:00 97.6 F 52 L 18 123/41 99 10/10/21 06:45 98.4 F 59 L 20 133/76 97 10/10/21 06:15 98.4 F 64 20 124/65 100 10/10/21 06:05 98.2 F 54 L 20 111/47 98 10/10/21 05:44 98.3 F 57 L 18 133/56 98 10/10/21 05:41 98.3 F 57 L 18 133/56 97 10/10/21 04:03 55 L 18 114/45 96 10/10/21 03:55 98.7 F 54 L 18 114/45 97 10/10/21 03:25 98.2 F 60 20 140/48 96 10/10/21 03:15 98.1 F 58 L 18 135/53 96 10/10/21 01:20 61 18 116/49 98 10/09/21 23:39 64 18 99 10/09/21 23:30 97.9 F 64 18 147/63 99 Intake and Output 10/09/21 10/10/21 10/10/21 22:59 06:59 14:59 Intake Total 310 310 Balance 310 310 Intake: Blood Product 310 310 Rc As-1 Unit 0 310 [id number] Rc Irr As1 Unit 310 [id number] Other: Voiding Method Bedside Commode Weight 189.148 kg 189.148 kg - Constitutional General appearance: cooperative, morbidly obese, no acute distress - EENT Eyes: anicteric sclerae, EOMI ENT: hearing grossly normal, normal oropharynx - Neck Neck: no lymphadenopathy - Respiratory Respiratory: bilateral: CTA - Cardiovascular Rhythm: irregularly irregular Heart sounds: normal: S1, S2 Abnormal Heart Sounds: no systolic murmur, no diastolic murmur, no rub, no S3 Gallop, no S4 Gallop, no click, no other leg Peripheral Edema: bilateral: None - Gastrointestinal General gastrointestinal: no absent bowel sounds, no decreased bowel sounds, no distended, no hepatomegaly, no hyperactive bowel sounds, normal bowel sounds, no organomegaly, no rigid, no scaphoid, soft, no splenomegaly, no tenderness, no umbilical hernia, no ventral hernia - Integumentary Integumentary: pale - Neurologic Neurologic: CNII-XII intact - Musculoskeletal Musculoskeletal: generalized weakness, strength equal bilaterally - Psychiatric Psychiatric: A&O x's 3, appropriate affect, intact judgment & insight Results CBC & Chem 7: 10/10/21 12:37 10/10/21 00:16 Labs: Abnormal Lab Results - Last 24 Hours (Table) 10/10/21 10/10/21 10/10/21 Range/Units 00:16 00:16 01:15 RBC (3.80-5.40) m/uL Hgb (11.4-16.0) gm/dL Hct (34.0-46.0) % MCV (80.0-100.0) fL MCH (25.0-35.0) pg MCHC (31.0-37.0) g/dL RDW (11.5-15.5) % Neutrophils # (1.3-7.7) k/uL Lymphocytes # (1.0-4.8) k/uL PT 33.1 H (9.0-12.0) sec INR 3.4 H (<1.2) Sodium 133 L (137-145) mmol/L Carbon Dioxide 21 L (22-30) mmol/L BUN 19 H (7-17) mg/dL Creatinine 1.06 H (0.52-1.04) mg/dL Glucose 214 H (74-99) mg/dL Calcium 8.1 L (8.4-10.2) mg/dL Total Protein 5.4 L (6.3-8.2) g/dL Albumin 2.7 L (3.5-5.0) g/dL Urine Protein (Negative) Urine Blood (Negative) Urine Nitrite (Negative) Ur Leukocyte Esterase (Negative) Urine RBC (0-5) /hpf Urine WBC (0-5) /hpf Urine WBC Clumps (None) /hpf Urine Bacteria (None) /hpf Hyaline Casts (0-2) /lpf Urine Mucus (None) /hpf Crossmatch See Detail 10/10/21 10/10/21 Range/Units 01:15 02:49 RBC 2.74 L (3.80-5.40) m/uL Hgb 5.7 L* (11.4-16.0) gm/dL Hct 20.0 L (34.0-46.0) % MCV 73.1 L (80.0-100.0) fL MCH 20.8 L (25.0-35.0) pg MCHC 28.4 L (31.0-37.0) g/dL RDW 17.2 H (11.5-15.5) % Neutrophils # 8.2 H (1.3-7.7) k/uL Lymphocytes # 0.8 L (1.0-4.8) k/uL PT (9.0-12.0) sec INR (<1.2) Sodium (137-145) mmol/L Carbon Dioxide (22-30) mmol/L BUN (7-17) mg/dL Creatinine (0.52-1.04) mg/dL Glucose (74-99) mg/dL Calcium (8.4-10.2) mg/dL Total Protein (6.3-8.2) g/dL Albumin (3.5-5.0) g/dL Urine Protein Trace H (Negative) Urine Blood Moderate H (Negative) Urine Nitrite Positive H (Negative) Ur Leukocyte Esterase Trace H (Negative) Urine RBC 19 H (0-5) /hpf Urine WBC 6 H (0-5) /hpf Urine WBC Clumps Rare H (None) /hpf Urine Bacteria Many H (None) /hpf Hyaline Casts 42 H (0-2) /lpf Urine Mucus Occasional H (None) /hpf Crossmatch Comments: transvaginal US report reviewed Assessment and Plan (1) Microcytic hypochromic anemia Narrative/Plan: Patient states that she has been having vaginal bleeding for about 1 year, of course smaller amounts. Anemia workup ordered. Have asked for iron studies to be done on pretransfusion blood if able. Pending D&C from ACQUISITION ADVISOR to see if this resolves patient's bleeding or if more invasive procedures are going to be needed. Not absolutely certain what level ACQUISITION ADVISOR would like to patient's hemoglobin to be at prior to a D&C but, continue to transfuse until patient's hemoglobin is between 7 and 8. Patient is not symptomatic, her vital signs are stable when seen. Check hemoglobin posttransfusion. CBC in the a.m. Current Visit: Yes Status: Acute Priority: High Code(s): D50.9 - IRON DEFICIENCY ANEMIA, UNSPECIFIED SNOMED Code(s): 99702613 (2) Coagulopathy Narrative/Plan: reviewed the chart, vitamin K was given about 3:30 AM. INR to be checked after 10 AM. If still therapeutic will order additional dose of vitamin K. INR again in the a.m. Current Visit: Yes Status: Acute Priority: High Code(s): D68.9 - COAGULATION DEFECT, UNSPECIFIED SNOMED Code(s): 83408731 Plan: attests: I performed H&P, seen and examined pt, developed impression and plan of care. Discussed with dictator. Agree with dictation, documented as a scribe.
[2021-10-10] MEDS ORDERED: PHYTONADIONE 5 MG in SODIUM CHLORIDE 0.9% 50 ML IVPB STA (17:49)
[2021-10-10 17:56] LABS: Glucose,Whole Blood 207 mg/dL (75-99)
[2021-10-10] MEDS: INSULIN ASPART (NovoLOG) 100 UNIT/ML VIAL SQ SCH ×2 (20:08→23:04)
[2021-10-10 20:44] LABS: Glucose,Whole Blood 186 mg/dL (75-99)
[2021-10-10] MEDS: GABAPENTIN 100 MG CAP PO SCH (23:03)
[2021-10-10] MEDS: carvediloL 12.5 MG TAB PO SCH (23:03)
[2021-10-11 06:24] LABS: Anisocytosis Slight; Hypochromasia Marked; MCH 23.2 pg (25.0-35.0); MCHC 30.7 g/dL (31.0-37.0); MCV 75.4 fL (80.0-100.0); Mean Platelet Volume 9.1; Microcytosis Moderate; Platelet Count 220 k/uL (150-450); Poikilocytosis Marked; RBC 2.92 m/uL (3.80-5.40); RDW 18.8 % (11.5-15.5); WBC 10.8 k/uL (3.8-10.6)
[2021-10-11 06:30] LABS: INR 1.5 (<1.2); Prothrombin Time 14.9 sec (9.0-12.0)
[2021-10-11 06:33] LABS: Glucose,Whole Blood 143 mg/dL (75-99)
[2021-10-11 06:44] LABS: HGB 6.8 gm/dL (11.4-16.0)
[2021-10-11] MEDS: INSULIN ASPART (NovoLOG) 100 UNIT/ML VIAL SQ SCH ×4 (06:50→21:01)
[2021-10-11] MEDS: LEVOTHYROXINE 100 MCG TAB PO SCH (07:02)
[2021-10-11] MEDS: carvediloL 12.5 MG TAB PO SCH ×2 (08:37→17:08)
--- NOTE | 2021-10-11 12:37 | P.PN ---
Subjective Progress Note Date: 10/11/21 61-year-old pleasant female came in with complains of vaginal bleeding is been going on for last couple days multiple episodes of bleeding with clots. Patient last menstrual cycle was many years ago. Patient is on Coumadin for atrial fibrillation patient INR is 3.7 on admission. Patient denied any symptoms of dysuria on admission but now she has some discomfort with his the [place] cath patient urine is bit abnormal that's because of the vaginal bleeding no fever no chills. Patient is found to have hemoglobin of 5.4 after transfusion of 2 units of PRBC, her present hemoglobin is 7.4. Patient was evaluated by TAMPING MACHINE OPERATOR services and patient will undergo dilatation and curettage tomorrow. 10/10/2021 Patient evaluated in the PACU pending D and C at noon today. She reports ongoing vaginal bleeding. Her INR today is 1.5 after 2 doses of vitamin K 5 mg, coumadin is on hold still. Patient is maintaining sinus isaias mechanism in the 50s. Patient said through out the evening she did have one episode of left chest pressure that resolved spontaneously. WBC today is 10.8, hgb 6.8, platelets 220. She has already received 2 units of PRBC, order to receive 2 more today. Patient currently denies any abdominal pain, nausea vomiting, diarrhea. She states that she is a bowel movement about 3 days. She denies any urinary urgency, frequency or dysuria. Urine cultures currently pending. Vitals today show a temp of 98.5, sinus bradycardia 57, blood pressure 134 with an unit and she is 94% on room air. ROS Constitutional: Denied any fatigue denied any fever. Cardio vascular: denied any chest pain, palpitations, one episode of chest pressure last night, non-radiating, resolved spontaneously. Gastrointestinal denied any nausea vomiting Pulmonary: Denied any shortness of breath cough Neurologic denied any new focal deficits All inpatient medications were reviewed and appropriate changes in these medications as dictated in the interval history and assessment and plan. PHYSICAL EXAMINATION: GENERAL: The patient is alert and oriented x3, not in any acute distress. Well developed, well nourished. Obese. HEENT: Pupils are round and equally reacting to light. EOMI. No scleral icterus. Does have conjunctival pallor. Normocephalic, atraumatic. No pharyngeal erythema. No thyromegaly. CARDIOVASCULAR: S1 and S2 present. No murmurs, rubs, or gallops. PULMONARY: Chest is clear to auscultation, no wheezing or crackles. ABDOMEN: Soft, nontender, nondistended, normoactive bowel sounds. No palpable organomegaly. MUSCULOSKELETAL: No joint swelling or deformity. EXTREMITIES: No cyanosis, clubbing, or pedal edema. NEUROLOGICAL: Gross neurological examination did not reveal any focal deficits. SKIN: No rashes. Assessment and plan -Vaginal bleeding, D & C planned for today, oncology work up, OBGYN work up. -Symptomatic anemia due to acute blood loss from vaginal bleeding for which raina ent received a 2 units of PRBC transfusion and Coumadin is being held patient received vitamin K. -Proximal A. fib presently sinus rhythm -Type 2 diabetes mellitus, metformin O/H continue with novolog -Gastroesophageal reflux disease -Hypertension -Hypothyroidism DVT prophylaxis: No pharmacological anticoagulation because of her active bleeding GI Prophylaxis: Protonix FULL CODE Plan Transfuse PRBC's Repeat labs in AM Continue with telemetry monitoring Continue all other supportive care. Objective - Vital Signs Vital signs: Vital Signs Temp 98.5 F 10/11/21 12:00 Pulse 57 L 10/11/21 12:00 Resp 16 10/11/21 12:00 BP 134/79 10/11/21 12:00 Pulse Ox 94 L 10/11/21 12:00 Intake & Output 10/10/21 10/11/21 10/11/21 18:59 06:59 18:59 Intake Total 310 350 0 Output Total 600 Balance 310 -250 0 Weight 189.148 kg Intake: Intake, IV Titration 50 Amount Phytonadione 5 mg In 50 Sodium Chloride 0.9% 50 ml @ 100 mls/hr IVPB ONCE STA Rx#:[id number] Oral 300 Blood Product 310 0 Rc As-1 Unit 310 [id number] Rc Pheresis 2 As3 Unit 0 [id number] Output: Urine 600 Other: Voiding Method Bedside Commode Bedside Commode # Voids 2 1 - Labs CBC & Chem 7: 10/11/21 05:20 10/10/21 00:16 Labs: Abnormal Lab Results - Last 24 Hours (Table) 10/10/21 10/10/21 10/10/21 Range/Units 00:16 01:15 12:37 WBC (3.8-10.6) k/uL RBC 3.22 L (3.80-5.40) m/uL Hgb 7.4 L D (11.4-16.0) gm/dL Hct 24.8 L (34.0-46.0) % MCV 76.8 L (80.0-100.0) fL MCH 23.0 L (25.0-35.0) pg MCHC 29.9 L (31.0-37.0) g/dL RDW 18.1 H (11.5-15.5) % Neutrophils # 8.2 H (1.3-7.7) k/uL PT (9.0-12.0) sec INR (<1.2) POC Glucose (mg/dL) (75-99) mg/dL Iron 15 L (50-170) ug/dL % Saturation 4.97 L (12.00-45.00) Crossmatch See Detail 10/10/21 10/10/21 10/10/21 Range/Units 12:37 17:53 20:43 WBC (3.8-10.6) k/uL RBC (3.80-5.40) m/uL Hgb (11.4-16.0) gm/dL Hct (34.0-46.0) % MCV (80.0-100.0) fL MCH (25.0-35.0) pg MCHC (31.0-37.0) g/dL RDW (11.5-15.5) % Neutrophils # (1.3-7.7) k/uL PT 25.7 H (9.0-12.0) sec INR 2.7 H (<1.2) POC Glucose (mg/dL) 207 H 186 H (75-99) mg/dL Iron (50-170) ug/dL % Saturation (12.00-45.00) Crossmatch 10/11/21 10/11/21 10/11/21 Range/Units 05:20 05:20 06:32 WBC 10.8 H (3.8-10.6) k/uL RBC 2.92 L (3.80-5.40) m/uL Hgb 6.8 L* (11.4-16.0) gm/dL Hct 22.0 L (34.0-46.0) % MCV 75.4 L (80.0-100.0) fL MCH 23.2 L (25.0-35.0) pg MCHC 30.7 L (31.0-37.0) g/dL RDW 18.8 H (11.5-15.5) % Neutrophils # (1.3-7.7) k/uL PT 14.9 H (9.0-12.0) sec INR 1.5 H (<1.2) POC Glucose (mg/dL) 143 H (75-99) mg/dL Iron (50-170) ug/dL % Saturation (12.00-45.00) Crossmatch Microbiology - Last 24 Hours (Table) 10/10/21 02:49 Urine Culture - Preliminary Urine,Catheterized Assessment and Plan Time with Patient: Greater than 30
[2021-10-11] MEDS ORDERED: IV FLUID CONTINUATION 1,000 ML IV ONE (12:56)
[2021-10-11] MEDS ORDERED: ONDANSETRON 4 MG/2 ML VIAL ONE (13:38)
[2021-10-11] MEDS ORDERED: ONDANSETRON 4 MG/2 ML VIAL IVP ONE (13:42)
[2021-10-11] MEDS ORDERED: DEXAMETHASONE SOD PHOSPHATE 4 MG/ML 1 ML VIAL IV ONE (13:42)
[2021-10-11] MEDS ORDERED: SCOPOLAMINE 1.5MG/72HR PATCH TRANSDERM ONE (13:43)
[2021-10-11] MEDS ORDERED: PROPOFOL 10 MG/ML 20 ML VIAL IV ONE (13:47)
[2021-10-11] MEDS ORDERED: LIDOCAINE 1% INJ 10MG/ML (20 ML MDV) ONE (13:47)
[2021-10-11] MEDS ORDERED: .fentaNYL (PF) 50 MCG/ML 2 ML AMP ONE (13:47)
[2021-10-11] MEDS ORDERED: SUCCINYLCHOLINE CHLORIDE 100 MG/5 ML SYR IV ONE (13:47)
[2021-10-11] MEDS ORDERED: GLYCOPYRROLATE 0.2 MG/ML 2 ML VIAL ONE (13:47)
--- NOTE | 2021-10-11 14:17 | P.OP ---
Date of Procedure: 10/11/21 Preoperative Diagnosis: Post menopausal bleeding Postoperative Diagnosis: Same with large fungating cervical/vaginal mass Procedure(s) Performed: Same under anesthesia with Pap smear: Blunt biopsy of cervical mass Anesthesia: STERLING Surgeon: Shaun Ken Estimated Blood Loss (ml): 3 Pathology: other (Pap smear and portions of fungating cervical mass) Condition: stable Disposition: floor Operative Findings: Pathology pending Description of Procedure: Patient was taken to the operating suite where a general anesthetic was found be adequate. She was prepped and draped in normal sterile fashion placed in dorsal lithotomy position. Initially a speculum was inserted in the vagina and immediately upon entering the vagina a fungating mass was seen. At the time of exam the emergency room due to heavy bleeding and clot formation in the vagina I thought that this was clot but on being able to clearly visualize it is clearly a mass that is necrotic. A Pap smear was obtained of the tissue and pieces of the mass that were already essentially falling off were sent to pathology for evaluation. I could not clearly visualize the cervix that was being essentially occluded by the mass. I removed speculum at this point did a digital exam and it felt like the mass encompassed the majority of the cervix particularly on the right side and it felt irregularly even up underneath the bladder area anteriorly at this point we did terminate the procedure and she was taken to the recovery room currently in stable condition. Record patient will be to transfer her to a PLANT OPERATIONS WORKER oncologist i.e. [facility] or other tertiary care center.
[2021-10-11] MEDS: PANTOPRAZOLE 40 MG TABLET PO SCH (16:16)
--- NOTE | 2021-10-11 16:29 | P.PN ---
Subjective Progress Note Date: 10/11/21 Patient was down for procedure when attempted to see Objective - Vital Signs Vital signs: Vital Signs Temp 98.0 F 10/11/21 04:00 Pulse 67 10/11/21 04:00 Resp 16 10/11/21 04:00 BP 142/65 10/11/21 04:00 Pulse Ox 97 10/11/21 04:00 Intake & Output 10/10/21 10/11/21 10/11/21 18:59 06:59 18:59 Intake Total 310 350 Output Total 600 Balance 310 -250 Weight 189.148 kg Intake: Intake, IV Titration 50 Amount Phytonadione 5 mg In 50 Sodium Chloride 0.9% 50 ml @ 100 mls/hr IVPB ONCE STA Rx#:[id number] Oral 300 Blood Product 310 Rc As-1 Unit 310 [id number] Output: Urine 600 Other: Voiding Method Bedside Commode Bedside Commode # Voids 2 1 - Labs CBC & Chem 7: 10/11/21 05:20 10/10/21 00:16 Labs: Abnormal Lab Results - Last 24 Hours (Table) 10/10/21 10/10/21 10/10/21 Range/Units 00:16 01:15 12:37 WBC (3.8-10.6) k/uL RBC 3.22 L (3.80-5.40) m/uL Hgb 7.4 L D (11.4-16.0) gm/dL Hct 24.8 L (34.0-46.0) % MCV 76.8 L (80.0-100.0) fL MCH 23.0 L (25.0-35.0) pg MCHC 29.9 L (31.0-37.0) g/dL RDW 18.1 H (11.5-15.5) % Neutrophils # 8.2 H (1.3-7.7) k/uL PT (9.0-12.0) sec INR (<1.2) POC Glucose (mg/dL) (75-99) mg/dL Iron 15 L (50-170) ug/dL % Saturation 4.97 L (12.00-45.00) Crossmatch See Detail 10/10/21 10/10/21 10/10/21 Range/Units 12:37 17:53 20:43 WBC (3.8-10.6) k/uL RBC (3.80-5.40) m/uL Hgb (11.4-16.0) gm/dL Hct (34.0-46.0) % MCV (80.0-100.0) fL MCH (25.0-35.0) pg MCHC (31.0-37.0) g/dL RDW (11.5-15.5) % Neutrophils # (1.3-7.7) k/uL PT 25.7 H (9.0-12.0) sec INR 2.7 H (<1.2) POC Glucose (mg/dL) 207 H 186 H (75-99) mg/dL Iron (50-170) ug/dL % Saturation (12.00-45.00) Crossmatch 10/11/21 10/11/21 10/11/21 Range/Units 05:20 05:20 06:32 WBC 10.8 H (3.8-10.6) k/uL RBC 2.92 L (3.80-5.40) m/uL Hgb 6.8 L* (11.4-16.0) gm/dL Hct 22.0 L (34.0-46.0) % MCV 75.4 L (80.0-100.0) fL MCH 23.2 L (25.0-35.0) pg MCHC 30.7 L (31.0-37.0) g/dL RDW 18.8 H (11.5-15.5) % Neutrophils # (1.3-7.7) k/uL PT 14.9 H (9.0-12.0) sec INR 1.5 H (<1.2) POC Glucose (mg/dL) 143 H (75-99) mg/dL Iron (50-170) ug/dL % Saturation (12.00-45.00) Crossmatch Microbiology - Last 24 Hours (Table) 10/10/21 02:49 Urine Culture - Preliminary Urine,Catheterized
[2021-10-11 16:42] LABS: Glucose,Whole Blood 159 mg/dL (75-99)
--- NOTE | 2021-10-11 17:10 | P.PN ---
Progress Note - Text Progress Note Date: 10/11/21 Fiorella was seen and evaluated postop LEEP. She is awake and alert and oriented 3. We did discuss likely diagnosis of cervical cancer but the pathology is pending. I did explain that there is a chance that we may not get 8 final diagnosis based on the fact that some the tissue was necrotic. We also discussed that we could not find the cervix very well and that the main concern with doing more biopsying were attempting more surgery was her risk of having heavy bleeding again and now it is slow down her risk of issues long-term was significantly higher if we continued and with the amount of mass that is present she would be seeing a specialist regardless. The decision on transfer of care [facility] versus allowing her to be discharged home and scheduling something outpatient with a DRY PLASTERER HELPER oncologist will be left up to the medicine team. Alternatively a oncology consultation to be done here by one of our oncologists and help to arrange other treatment moving forward. If she was to have heavy bleeding and oncology consultation would be required as was a chance that she may need radiation treatment to stop any extremely heavy bleeding as there may not be another alternative to get her bleeding to slow down at that happens again.
[2021-10-11] MEDS ORDERED: BENZOCAINE/MENTHOL LOZENG 1 EACH LOZENGE MUCOUS MEM PRN (17:39)
[2021-10-11 20:52] LABS: Glucose,Whole Blood 273 mg/dL (75-99)
[2021-10-11] MEDS: GABAPENTIN 100 MG CAP PO SCH (21:01)
[2021-10-11 23:27] LABS: Basophils # (A) 0.07 X 10*3/uL (0.00-0.10); Basophils % (A) 0.5 %; Eosinophils # (A) 0.18 X 10*3/uL (0.04-0.35); Eosinophils % (A) 1.3 %; HGB 7.4 g/dL (12.0-15.0); Lymphocytes # (A) 0.76 X 10*3/uL (0.90-5.00); Lymphocytes % (A) 5.6 %; MCH 21.8 pg (27.0-32.0); MCHC 27.4 g/dL (32.0-37.0); MCV 79.6 fL (80.0-97.0); Mean Platelet Volume 10.4 fL (9.5-12.2); Monocytes # (A) 0.64 X 10*3/uL (0.20-1.00); Monocytes % (A) 4.7 %; Neutrophils # (A) 11.61 X 10*3/uL (1.80-7.70); Neutrophils % (A) 86.1 %; Platelet Count 337 X 10*3/uL (140-440); RBC 3.39 X 10*6/uL (4.10-5.20); RDW 19.1 % (11.5-14.5)
[2021-10-12] MEDS: LEVOTHYROXINE 100 MCG TAB PO SCH (06:04)
[2021-10-12 06:55] LABS: Glucose,Whole Blood 176 mg/dL (75-99)
[2021-10-12] MEDS: carvediloL 12.5 MG TAB PO SCH ×2 (07:43→16:53)
[2021-10-12] MEDS: INSULIN ASPART (NovoLOG) 100 UNIT/ML VIAL SQ SCH ×4 (07:44→21:21)
[2021-10-12 08:30] LABS: Methylmalonic Acid 0.35 umol/L (<0.40)
[2021-10-12 09:31] LABS: Basophils # (A) 0.07 X 10*3/uL (0.00-0.10); Basophils % (A) 0.5 %; Eosinophils # (A) 0.08 X 10*3/uL (0.04-0.35); Eosinophils % (A) 0.5 %; HCT 25.8 % (37.2-46.3); HGB 7.4 g/dL (12.0-15.0); Lymphocytes # (A) 1.21 X 10*3/uL (0.90-5.00); Lymphocytes % (A) 8.1 %; MCH 22.9 pg (27.0-32.0); MCHC 28.7 g/dL (32.0-37.0); MCV 79.9 fL (80.0-97.0); Mean Platelet Volume 10.2 fL (9.5-12.2); Monocytes # (A) 1.33 X 10*3/uL (0.20-1.00); Monocytes % (A) 8.9 %; Neutrophils # (A) 11.93 X 10*3/uL (1.80-7.70); Neutrophils % (A) 80.3 %; Platelet Count 327 X 10*3/uL (140-440); RBC 3.23 X 10*6/uL (4.10-5.20); RDW 19.6 % (11.5-14.5); WBC 14.87 X 10*3/uL (4.50-10.00)
[2021-10-12 11:31] LABS: Glucose,Whole Blood 162 mg/dL (75-99)
--- NOTE | 2021-10-12 12:04 | P.PN ---
Subjective Progress Note Date: 10/12/21 Principal diagnosis: likely new malignancy Patient was taken to OR yesterday and apon entering the vaginal canal a necrotic fungating mass was identified. Per operative report pieces of this mass were taken for pathology and the mass appeared to be occluding visualization of the cervix. We have ordered repeat renal function and calcium levels today and if creatinine is adequate will obtain CT with Contrast for staging, if subadequate will proceed without contrast, however contrasted study is preferred. If she is continuing to have bleeding recommendations for inpatient transfer to MACHINE SPRAYER onc - likely [facility] given many hospitals are closed for inpatient transfers at this time. If bleeding is still persistent will initiate Sandostatin 50mcg Subcut bolus then 25mcg/hours to attempt control. This is preferred over amicar given her history. Will also check Coags. Iron studies also ordered which may not show 100% accuracy given her recent PRBC transfusions. Patient admits to still substantial blood loss vaginally, Sandostatin has been ordered Objective - Vital Signs Vital signs: Vital Signs Temp 98.1 F 10/12/21 07:45 Pulse 53 L 10/12/21 07:45 Resp 17 10/12/21 07:45 BP 141/70 10/12/21 07:45 Pulse Ox 99 10/12/21 07:45 Intake & Output 10/11/21 10/12/21 10/12/21 18:59 06:59 18:59 Intake Total 100 585 Output Total 5 Balance 95 585 Weight 189.15 kg 184.6 kg Intake: IV 100 Blood Product 0 585 Rc As-1 Unit 310 [id number] Rc Pheresis 2 As3 Unit 0 275 [id number] Output: Estimated Blood Loss 5 Other: Voiding Method Toilet Toilet # Voids 1 1 - Exam Alert NAD Lungs: CTA Abdom: Tender Ext: Edema Heart: Irreg Morbid obesity + bleeding - Labs CBC & Chem 7: 10/12/21 06:09 10/12/21 12:18 Labs: Abnormal Lab Results - Last 24 Hours (Table) 10/10/21 10/10/21 10/11/21 Range/Units 00:16 01:15 16:41 WBC (4.50-10.00) X 10*3/uL RBC (4.10-5.20) X 10*6/uL Hgb (12.0-15.0) g/dL Hct (37.2-46.3) % MCV (80.0-97.0) fL MCH (27.0-32.0) pg MCHC (32.0-37.0) g/dL RDW (11.5-14.5) % Absolute Nucleated RBC (0.00-0.00) X 10*3/uL Immature Gran # (0.00-0.04) X 10*3/uL Neutrophils # (1.80-7.70) X 10*3/uL Lymphocytes # (0.90-5.00) X 10*3/uL Monocytes # (0.20-1.00) X 10*3/uL NRBC/100 WBC Diff (0.0-0.0) /100 WBCS POC Glucose (mg/dL) 159 H (75-99) mg/dL RBC Folate 1,165 H (280 - 791) ng/mL Crossmatch See Detail 10/11/21 10/11/21 10/12/21 Range/Units 16:47 20:51 06:09 WBC 13.50 H 14.87 H (4.50-10.00) X 10*3/uL RBC 3.39 L 3.23 L (4.10-5.20) X 10*6/uL Hgb 7.4 L 7.4 L (12.0-15.0) g/dL Hct 27.0 L 25.8 L (37.2-46.3) % MCV 79.6 L 79.9 L (80.0-97.0) fL MCH 21.8 L 22.9 L (27.0-32.0) pg MCHC 27.4 L 28.7 L (32.0-37.0) g/dL RDW 19.1 H 19.6 H (11.5-14.5) % Absolute Nucleated RBC 0.04 H (0.00-0.00) X 10*3/uL Immature Gran # 0.24 H 0.25 H (0.00-0.04) X 10*3/uL Neutrophils # 11.61 H 11.93 H (1.80-7.70) X 10*3/uL Lymphocytes # 0.76 L (0.90-5.00) X 10*3/uL Monocytes # 1.33 H (0.20-1.00) X 10*3/uL NRBC/100 WBC Diff 0.3 H (0.0-0.0) /100 WBCS POC Glucose (mg/dL) 273 H (75-99) mg/dL RBC Folate (280 - 791) ng/mL Crossmatch 10/12/21 10/12/21 Range/Units 06:54 11:29 WBC (4.50-10.00) X 10*3/uL RBC (4.10-5.20) X 10*6/uL Hgb (12.0-15.0) g/dL Hct (37.2-46.3) % MCV (80.0-97.0) fL MCH (27.0-32.0) pg MCHC (32.0-37.0) g/dL RDW (11.5-14.5) % Absolute Nucleated RBC (0.00-0.00) X 10*3/uL Immature Gran # (0.00-0.04) X 10*3/uL Neutrophils # (1.80-7.70) X 10*3/uL Lymphocytes # (0.90-5.00) X 10*3/uL Monocytes # (0.20-1.00) X 10*3/uL NRBC/100 WBC Diff (0.0-0.0) /100 WBCS POC Glucose (mg/dL) 176 H 162 H (75-99) mg/dL RBC Folate (280 - 791) ng/mL Crossmatch Microbiology - Last 24 Hours (Table) 10/10/21 02:49 Urine Culture - Preliminary Urine,Catheterized Gram Neg Bacilli Assessment and Plan (1) Vaginal mass Current Visit: Yes Status: Acute Code(s): N89.8 - OTHER SPECIFIED NONINFLAMMATORY DISORDERS OF VAGINA SNOMED Code(s): 574841330 (2) Leukocytosis Current Visit: Yes Status: Acute Code(s): D72.829 - ELEVATED WHITE BLOOD CELL COUNT, UNSPECIFIED SNOMED Code(s): 599347031 (3) Coagulopathy Current Visit: Yes Status: Acute Priority: High Code(s): D68.9 - COAGULATION DEFECT, UNSPECIFIED SNOMED Code(s): 46907673 (4) Microcytic hypochromic anemia Current Visit: Yes Status: Acute Priority: High Code(s): D50.9 - IRON DEFICIENCY ANEMIA, UNSPECIFIED SNOMED Code(s): 23388641 (5) Vaginal hemorrhage Current Visit: Yes Status: Acute Code(s): N93.9 - ABNORMAL UTERINE AND VAGINAL BLEEDING, UNSPECIFIED SNOMED Code(s): 306058428 Plan: Assessment and Recommendations: Blood Loss Anemia: Vaginal Bleeding - If continuing to bleed will start Sandaostatin 50mcg SQx1, then 25mcg q8 hours till controlled - Prefer sandostatin over other agents, like amicar, given her medical cardiac history - Transfuse PRBC Hemoglobin <7 - Bleeding secondary to vaginal mass obstructing cervical view Vaginal Mass: - CT chest today, await renal function to ensure safety with contrast - Await Pathology for full recommendations repeat CMP and Anemia work-up She is still having quite a bit of vaginal bleeding, sandostatin drip has been started and discussed transferring to [facility] with primary team and discussed in detail with patient.
[2021-10-12] MEDS ORDERED: RX INFO: IV CONTRAST WAS GIVEN 1 EACH MISC MISCELLANE PRN (12:23)
[2021-10-12 13:19] LABS: ALT 14 U/L (4-34); AST 25 U/L (14-36); African American GFR (CKD) 77 (>60 ml/min/1.73 sqM); Alkaline Phosphatase 66 U/L (38-126); Anion Gap 6 mmol/L; Blood Urea Nitrogen 14 mg/dL (7-17); Calcium 8.7 mg/dL (8.4-10.2); Carbon Dioxide 25 mmol/L (22-30); Chloride 103 mmol/L (98-107); Glucose 143 mg/dL (74-99); Magnesium 1.9 mg/dL (1.6-2.3); Non-African American GFR(CKD) 67 (>60 ml/min/1.73 sqM); Potassium 4.2 mmol/L (3.5-5.1); Sodium 134 mmol/L (137-145); Total Bilirubin 0.5 mg/dL (0.2-1.3)
[2021-10-12 13:26] LABS: INR 1.1 (<1.2); Partial Thromboplastin Time 24.9 sec (22.0-30.0); Prothrombin Time 11.4 sec (9.0-12.0)
[2021-10-12] MEDS ORDERED: OCTREOTIDE 100 MCG/ML INJ IVP ONE (13:30)
--- NOTE | 2021-10-12 14:22 | P.PN ---
Subjective Progress Note Date: 10/12/21 61-year-old pleasant female came in with complains of vaginal bleeding is been going on for last couple days multiple episodes of bleeding with clots. Patient last menstrual cycle was many years ago. Patient is on Coumadin for atrial fibrillation patient INR is 3.7 on admission. Patient denied any symptoms of dysuria on admission but now she has some discomfort with his the [place] cath patient urine is bit abnormal that's because of the vaginal bleeding no fever no chills. Patient is found to have hemoglobin of 5.4 after transfusion of 2 units of PRBC, her present hemoglobin is 7.4. Patient was evaluated by [employer]MAIL MARKETING PROCESS[employer] services and patient will undergo dilatation and curettage tomorrow. 10/11/2021 Patient evaluated in the PACU pending D and C at noon today. She reports ongoing vaginal bleeding. Her INR today is 1.5 after 2 doses of vitamin K 5 mg, coumadin is on hold still. Patient is maintaining sinus isaias mechanism in the 50s. Patient said through out the evening she did have one episode of left chest pressure that resolved spontaneously. WBC today is 10.8, hgb 6.8, platelets 220. She has already received 2 units of PRBC, order to receive 2 more today. Patient currently denies any abdominal pain, nausea vomiting, diarrhea. She states that she is a bowel movement about 3 days. She denies any urinary urgency, frequency or dysuria. Urine cultures currently pending. Vitals today show a temp of 98.5, sinus bradycardia 57, blood pressure 134 with an unit and she is 94% on room air. 10/12/2021 Patient evaluated today sitting on the edge of the bed. She underwent a LEEP procedure yesterday and patient still has persistant vaginal bleeding with some clotting. Per patient bleeding starting about 1 year ago intermittently, and unfortunately she has not been evaluated by OBGYN for years. She denies any abdominal pain, nausea vomiting. She states that she has not had a bowel move ment since Saturday. Denies any chest pain, chest pressure. She has intermittent episodes of palpitations. Coumadin is on hold, most recent INR today is 1.1. White count is 14.7, hemoglobin 7.4 status post 4 units of PRBCs. Platelets are 327. Sodium 134. He is recommending hospital to hospital transfer for EMAIL MARKETING PROCESSOR facility specialist. 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 Biopsies were taken of the mass. Transfer process was initiated. While waiting for bed, oncology team started patient on sandostatin to try and control the bleeding, as well as CT chest to assist with staging. Vitals today; temp - 98.2, heart rate 59 sinus bradycardia, blood pressure 144/74, 97 on room air. ROS Constitutional: Denied any fatigue denied any fever. Cardio vascular: denied any chest pain, chest pressure, reports palpitations Gastrointestinal denied any nausea vomiting, reports constipation Pulmonary: Denied any shortness of breath cough Neurologic denied any new focal deficits : Denies dysuria, reports persistent vaginal bleeding with clots All inpatient medications were reviewed and appropriate changes in these medications as dictated in the interval history and assessment and plan. PHYSICAL EXAMINATION: GENERAL: The patient is alert and oriented x3, not in any acute distress. Well developed, well nourished. Obese. HEENT: Pupils are round and equally reacting to light. EOMI. No scleral icterus. Does have conjunctival pallor. Normocephalic, atraumatic. No pharyngeal erythema. No thyromegaly. CARDIOVASCULAR: S1 and S2 present. No murmurs, rubs, or gallops. PULMONARY: Chest is clear to auscultation, no wheezing or crackles. ABDOMEN: Soft, nontender, nondistended, normoactive bowel sounds. No palpable organomegaly. MUSCULOSKELETAL: No joint swelling or deformity. EXTREMITIES: No cyanosis, clubbing, or pedal edema. NEUROLOGICAL: Gross neurological examination did not reveal any focal deficits. SKIN: No rashes. Assessment and plan -Vaginal bleeding secondary to cervical mass obstructing cervix -Symptomatic anemia due to acute blood loss from vaginal bleeding, current hemoglobin 7.4 s/p 4 units PRBC -Leukocytosis, probably reactive -Paroxysmal atrial fibrillation coumadin on hold, currently sinus bradycardia -Type 2 diabetes mellitus, metformin O/H continue with novolog -Gastroesophageal reflux disease -Hypertension -Hypothyroidism DVT prophylaxis: No pharmacological anticoagulation because of her active bleeding GI Prophylaxis: Protonix FULL CODE Plan Transfuse PRBC's for hemoglobin <7 Repeat labs in AM Continue with telemetry monitoring Continue all other supportive care. CT Chest for staging ordered by oncology Initiated transfer to hospital that offers EMAIL MARKETING PROCESSOR ONC due to persistent vaginal bleeding s/p LEEP procedure with biopsies; recommended by gynecology and oncology teams. Objective - Vital Signs Vital signs: Vital Signs Temp 98.1 F 10/12/21 07:45 Pulse 53 L 10/12/21 07:45 Resp 17 10/12/21 07:45 BP 141/70 10/12/21 07:45 Pulse Ox 99 10/12/21 07:45 Intake & Output 10/11/21 10/12/21 10/12/21 18:59 06:59 18:59 Intake Total 100 585 Output Total 5 Balance 95 585 Weight 189.15 kg 184.6 kg Intake: IV 100 Blood Product 0 585 Rc As-1 Unit 310 [id number] Rc Pheresis 2 As3 Unit 0 275 [id number] Output: Estimated Blood Loss 5 Other: Voiding Method Toilet Toilet # Voids 1 1 - Labs CBC & Chem 7: 10/12/21 06:09 10/12/21 12:18 Labs: Abnormal Lab Results - Last 24 Hours (Table) 10/10/21 10/11/21 10/11/21 Range/Units 01:15 16:41 16:47 WBC 13.50 H (4.50-10.00) X 10*3/uL RBC 3.39 L (4.10-5.20) X 10*6/uL Hgb 7.4 L (12.0-15.0) g/dL Hct 27.0 L (37.2-46.3) % MCV 79.6 L (80.0-97.0) fL MCH 21.8 L (27.0-32.0) pg MCHC 27.4 L (32.0-37.0) g/dL RDW 19.1 H (11.5-14.5) % Absolute Nucleated RBC (0.00-0.00) X 10*3/uL Immature Gran # 0.24 H (0.00-0.04) X 10*3/uL Neutrophils # 11.61 H (1.80-7.70) X 10*3/uL Lymphocytes # 0.76 L (0.90-5.00) X 10*3/uL Monocytes # (0.20-1.00) X 10*3/uL NRBC/100 WBC Diff (0.0-0.0) /100 WBCS POC Glucose (mg/dL) 159 H (75-99) mg/dL Crossmatch See Detail 10/11/21 10/12/21 10/12/21 Range/Units 20:51 06:09 06:54 WBC 14.87 H (4.50-10.00) X 10*3/uL RBC 3.23 L (4.10-5.20) X 10*6/uL Hgb 7.4 L (12.0-15.0) g/dL Hct 25.8 L (37.2-46.3) % MCV 79.9 L (80.0-97.0) fL MCH 22.9 L (27.0-32.0) pg MCHC 28.7 L (32.0-37.0) g/dL RDW 19.6 H (11.5-14.5) % Absolute Nucleated RBC 0.04 H (0.00-0.00) X 10*3/uL Immature Gran # 0.25 H (0.00-0.04) X 10*3/uL Neutrophils # 11.93 H (1.80-7.70) X 10*3/uL Lymphocytes # (0.90-5.00) X 10*3/uL Monocytes # 1.33 H (0.20-1.00) X 10*3/uL NRBC/100 WBC Diff 0.3 H (0.0-0.0) /100 WBCS POC Glucose (mg/dL) 273 H 176 H (75-99) mg/dL Crossmatch Microbiology - Last 24 Hours (Table) 10/10/21 02:49 Urine Culture - Preliminary Urine,Catheterized Gram Neg Bacilli Assessment and Plan Time with Patient: Greater than 30
[2021-10-12] MEDS: OCTREOTIDE 500 MCG in SODIUM CHLORIDE 0.9% 250 ML IV SCH (15:37)
[2021-10-12] MEDS: DOCUSATE 100 MG CAP PO SCH (15:38)
[2021-10-12 16:39] LABS: Glucose,Whole Blood 177 mg/dL (75-99)
[2021-10-12] MEDS: MORPHINE SULFATE 2 MG/ML SYRINGE IVP PRN (20:17)
[2021-10-12 20:32] LABS: African American GFR (CKD) 79.4 (60.0-200.0); Anion Gap 16.1 mmol/L (10.00-18.00); BUN/Creat Ratio 13.33 Ratio (12.00-20.00); Calcium 8.8 mg/dL (8.7-10.3); Carbon Dioxide 18.9 mmol/L (20.0-27.5); Non-African American GFR(CKD) 68.5 (60.0-200.0); Potassium 4.5 mmol/L (3.5-5.5)
[2021-10-12 20:44] LABS: Glucose,Whole Blood 250 mg/dL (75-99)
[2021-10-12] MEDS: ONDANSETRON 4 MG/2 ML VIAL IVP PRN (21:42)
--- NOTE | 2021-10-13 00:52 | CT ---
EXAMINATION TYPE: CT chest w con DATE OF EXAM: 10/12/2021 COMPARISON: None HISTORY: staging CT DLP: 1046.6 mGycm Automated exposure control for dose reduction was used. CONTRAST: Performed with IV Contrast, patient injected with 100 mL of Isovue 300. Images obtained from the thoracic inlet to the diaphragm with IV contrast. The lungs are clear of consolidation. There is no evidence of a pulmonary mass. There is no pleural e ffusion. Heart appears enlarged. There is no pericardial effusion. There is minimal subsegmental atel ectasis in the lingula left upper lobe. There are no hilar masses. There is no mediastinal adenopathy. Thoracic aorta appears intact. There i s no sign of aneurysm or dissection. The ascending aorta measures 3.7 cm. \ The thoracic spine appears intact. There is no compression fracture. Sternum is intact. There is no e vidence of rib fracture. IMPRESSION: Cardiomegaly. No suspicious pulmonary mass.
[2021-10-13] MEDS: GABAPENTIN 100 MG CAP PO SCH ×2 (02:00→21:09)
[2021-10-13] MEDS: LEVOTHYROXINE 100 MCG TAB PO SCH (05:41)
[2021-10-13 07:27] LABS: Glucose,Whole Blood 196 mg/dL (75-99)
[2021-10-13] MEDS: DOCUSATE 100 MG CAP PO SCH (07:41)
[2021-10-13] MEDS: PANTOPRAZOLE 40 MG TABLET PO SCH (07:41)
[2021-10-13] MEDS: INSULIN ASPART (NovoLOG) 100 UNIT/ML VIAL SQ SCH ×4 (07:41→21:08)
[2021-10-13] MEDS: carvediloL 12.5 MG TAB PO SCH ×2 (07:41→17:12)
[2021-10-13] MEDS: MORPHINE SULFATE 2 MG/ML SYRINGE IVP PRN ×2 (09:26→14:02)
[2021-10-13] MEDS: ONDANSETRON 4 MG/2 ML VIAL IVP PRN (09:27)
[2021-10-13 11:03] LABS: Basophils % (A) 0.9 %; Eosinophils # (A) 0.37 X 10*3/uL (0.04-0.35); Eosinophils % (A) 3.2 %; HCT 28.6 % (37.2-46.3); Lymphocytes # (A) 1.37 X 10*3/uL (0.90-5.00); Lymphocytes % (A) 11.9 %; MCH 23.1 pg (27.0-32.0); MCV 82.7 fL (80.0-97.0); Monocytes # (A) 1.14 X 10*3/uL (0.20-1.00); Monocytes % (A) 9.9 %; Neutrophils # (A) 8.31 X 10*3/uL (1.80-7.70); Neutrophils % (A) 72.3 %; Platelet Count 325 X 10*3/uL (140-440); RBC 3.46 X 10*6/uL (4.10-5.20); RDW 20.5 % (11.5-14.5)
[2021-10-13 11:43] LABS: African American GFR (CKD) 69.9 (60.0-200.0); Anion Gap 13.2 mmol/L (10.00-18.00); BUN/Creat Ratio 12.8 Ratio (12.00-20.00); Blood Urea Nitrogen 12.8 mg/dL (9.0-27.0); Calcium 8.9 mg/dL (8.7-10.3); Carbon Dioxide 20.8 mmol/L (20.0-27.5); Non-African American GFR(CKD) 60.3 (60.0-200.0); Potassium 4.6 mmol/L (3.5-5.5)
[2021-10-13 11:53] LABS: Glucose,Whole Blood 202 mg/dL (75-99)
[2021-10-13] MEDS: polyethylene glycoL 3350 17 GM POWD.PACK PO SCH (12:08)
--- NOTE | 2021-10-13 12:08 | NM ---
EXAMINATION TYPE: NM bone scan whole body DATE OF EXAM: 10/13/2021 COMPARISON: Chest CT yesterday HISTORY: Newly diagnosed cancer. Delayed whole-body scanning was performed following the injection of 24.9 mCi Tc 99m MDP. Images acq uired 3 hours post injection. Images obtained of the whole-body in anterior and posterior projections . FINDINGS: Slightly suboptimal study due to body habitus. No suspicious increased radiotracer uptake t o suggest metastatic disease to the bone or other suspicious abnormality. Symmetric uptake bilateral knee joints consistent with degenerative changes are present. IMPRESSION: As above.
[2021-10-13] MEDS: OCTREOTIDE 500 MCG in SODIUM CHLORIDE 0.9% 250 ML IV SCH (14:03)
[2021-10-13 16:16] LABS: Glucose,Whole Blood 227 mg/dL (75-99)
--- NOTE | 2021-10-13 20:14 | P.PN ---
Subjective Progress Note Date: 10/13/21 Principal diagnosis: likely new malignancy Bleeding has slown, although still present, currently awaiting bed Objective - Vital Signs Vital signs: Vital Signs Temp 98.2 F 10/13/21 19:43 Pulse 54 L 10/13/21 19:43 Resp 15 10/13/21 19:43 BP 161/74 10/13/21 19:43 Pulse Ox 96 10/13/21 19:43 Intake & Output 10/13/21 10/13/21 10/14/21 06:59 18:59 06:59 Intake Total 880 Balance 880 Intake: Intake, IV Titration 400 Amount IV Fluid Continuation 1, 150 000 ml @ 0 mls/hr IV .STK -MED ONE Rx#:[id number] Octreotide 500 mcg In 250 Sodium Chloride 0.9% 250 ml @ 25 MCG/HR 12.5 mls/ hr IV .Q20H FAN[facility] Rx#: [id number] Oral 480 Other: Voiding Method Toilet Toilet # Voids 6 2 - Exam Alert NAD Lungs: CTA Abdom: Tender Ext: Edema Heart: Irreg Morbid obesity + bleeding - Labs CBC & Chem 7: 10/13/21 07:10 10/13/21 07:10 Labs: Abnormal Lab Results - Last 24 Hours (Table) 10/12/21 10/12/21 10/13/21 Range/Units 06:09 20:42 06:50 WBC (4.50-10.00) X 10*3/uL RBC (4.10-5.20) X 10*6/uL Hgb (12.0-15.0) g/dL Hct (37.2-46.3) % MCH (27.0-32.0) pg MCHC (32.0-37.0) g/dL RDW (11.5-14.5) % Absolute Nucleated RBC (0.00-0.00) X 10*3/uL Immature Gran # (0.00-0.04) X 10*3/uL Neutrophils # (1.80-7.70) X 10*3/uL Monocytes # (0.20-1.00) X 10*3/uL Eosinophils # (0.04-0.35) X 10*3/uL NRBC/100 WBC Diff (0.0-0.0) /100 WBCS Carbon Dioxide 18.9 L (20.0-27.5) mmol/L Glucose 157 H (70-110) mg/dL POC Glucose (mg/dL) 250 H 196 H (75-99) mg/dL 10/13/21 10/13/21 10/13/21 Range/Units 07:10 07:10 11:50 WBC 11.50 H (4.50-10.00) X 10*3/uL RBC 3.46 L (4.10-5.20) X 10*6/uL Hgb 8.0 L (12.0-15.0) g/dL Hct 28.6 L (37.2-46.3) % MCH 23.1 L (27.0-32.0) pg MCHC 28.0 L (32.0-37.0) g/dL RDW 20.5 H (11.5-14.5) % Absolute Nucleated RBC 0.03 H (0.00-0.00) X 10*3/uL Immature Gran # 0.21 H (0.00-0.04) X 10*3/uL Neutrophils # 8.31 H (1.80-7.70) X 10*3/uL Monocytes # 1.14 H (0.20-1.00) X 10*3/uL Eosinophils # 0.37 H (0.04-0.35) X 10*3/uL NRBC/100 WBC Diff 0.3 H (0.0-0.0) /100 WBCS Carbon Dioxide (20.0-27.5) mmol/L Glucose 177 H (70-110) mg/dL POC Glucose (mg/dL) 202 H (75-99) mg/dL 10/13/21 Range/Units 16:14 WBC (4.50-10.00) X 10*3/uL RBC (4.10-5.20) X 10*6/uL Hgb (12.0-15.0) g/dL Hct (37.2-46.3) % MCH (27.0-32.0) pg MCHC (32.0-37.0) g/dL RDW (11.5-14.5) % Absolute Nucleated RBC (0.00-0.00) X 10*3/uL Immature Gran # (0.00-0.04) X 10*3/uL Neutrophils # (1.80-7.70) X 10*3/uL Monocytes # (0.20-1.00) X 10*3/uL Eosinophils # (0.04-0.35) X 10*3/uL NRBC/100 WBC Diff (0.0-0.0) /100 WBCS Carbon Dioxide (20.0-27.5) mmol/L Glucose (70-110) mg/dL POC Glucose (mg/dL) 227 H (75-99) mg/dL Microbiology - Last 24 Hours (Table) 10/10/21 02:49 Urine Culture - Final Urine,Catheterized Escherichia coli Assessment and Plan (1) Vaginal mass Current Visit: Yes Status: Acute Code(s): N89.8 - OTHER SPECIFIED NONINFLAMMATORY DISORDERS OF VAGINA SNOMED Code(s): 640100551 (2) Leukocytosis Current Visit: Yes Status: Acute Code(s): D72.829 - ELEVATED WHITE BLOOD CELL COUNT, UNSPECIFIED SNOMED Code(s): 787552531 (3) Coagulopathy Current Visit: Yes Status: Acute Priority: High Code(s): D68.9 - COAGULATION DEFECT, UNSPECIFIED SNOMED Code(s): 26950027 (4) Microcytic hypochromic anemia Current Visit: Yes Status: Acute Priority: High Code(s): D50.9 - IRON DEFICIENCY ANEMIA, UNSPECIFIED SNOMED Code(s): 82522729 (5) Vaginal hemorrhage Current Visit: Yes Status: Acute Code(s): N93.9 - ABNORMAL UTERINE AND VAGINAL BLEEDING, UNSPECIFIED SNOMED Code(s): 169909473 Plan: Assessment and Recommendations: Blood Loss Anemia: Vaginal Bleeding - If continuing to bleed will start Sandaostatin 50mcg SQx1, then 25mcg q8 hours till controlled - Prefer sandostatin over other agents, like amicar, given her medical cardiac history - Transfuse PRBC Hemoglobin <7 - Bleeding secondary to vaginal mass obstructing cervical view Vaginal Mass: - CT chest10/13 - Await Pathology for full recommendations Bone Scan and CT negative for evidence of metastatic disease Vaginal bleeding is improved, continue abbye through am and reassess Physician attest: I have completed the fulll history and physical and agree with above dictation, dictated as a scribe.
[2021-10-13 20:21] LABS: Glucose,Whole Blood 210 mg/dL (75-99)
--- NOTE | 2021-10-13 23:55 | P.PN ---
Subjective Progress Note Date: 10/13/21 61-year-old pleasant female came in with complains of vaginal bleeding is been going on for last couple days multiple episodes of bleeding with clots. Patient last menstrual cycle was many years ago. Patient is on Coumadin for atrial fibrillation patient INR is 3.7 on admission. Patient denied any symptoms of dysuria on admission but now she has some discomfort with his the [place] cath patient urine is bit abnormal that's because of the vaginal bleeding no fever no chills. Patient is found to have hemoglobin of 5.4 after transfusion of 2 units of PRBC, her present hemoglobin is 7.4. Patient was evaluated by [facility] services and patient will undergo dilatation and curettage tomorrow. 10/11/2021 Patient evaluated in the PACU pending D and C at noon today. She reports ongoing vaginal bleeding. Her INR today is 1.5 after 2 doses of vitamin K 5 mg, coumadin is on hold still. Patient is maintaining sinus isaias mechanism in the 50s. Patient said through out the evening she did have one episode of left chest pressure that resolved spontaneously. WBC today is 10.8, hgb 6.8, platelets 220. She has already received 2 units of PRBC, order to receive 2 more today. Patient currently denies any abdominal pain, nausea vomiting, diarrhea. She states that she is a bowel movement about 3 days. She denies any urinary urgency, frequency or dysuria. Urine cultures currently pending. Vitals today show a temp of 98.5, sinus bradycardia 57, blood pressure 134 with an unit and she is 94% on room air. 10/12/2021 Patient evaluated today sitting on the edge of the bed. She underwent a LEEP procedure yesterday and patient still has persistant vaginal bleeding with some clotting. Per patient bleeding starting about 1 year ago intermittently, and unfortunately she has not been evaluated by OBGYN for years. She denies any abdominal pain, nausea vomiting. She states that she has not had a bowel move ment since Saturday. Denies any chest pain, chest pressure. She has intermittent episodes of palpitations. Coumadin is on hold, most recent INR today is 1.1. White count is 14.7, hemoglobin 7.4 status post 4 units of PRBCs. Platelets are 327. Sodium 134. He is recommending hospital to hospital transfer for [facility] account development specialist. 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 Biopsies were taken of the mass. Transfer process was initiated. While waiting for bed, oncology team started patient on sandostatin to try and control the bleeding, as well as CT chest to assist with staging. Vitals today; temp - 98.2, heart rate 59 sinus bradycardia, blood pressure 144/74, 97 on room air. Patient evaluated today sitting at the bedside. Vaginal bleeding persists, patients it has slowed a bit. She is complaining of left sided abdominal pain, as she describes "where the ovaries would be." She is requesting something stronger for a bowel movement today. She is still on octreotide infusion. WBC today is 11.50, hemoglobin 8.0, platelet 325. Chemistry panel is unremarkable today. Glucose in the 200s. Patient had a chest CT that showed no evidence for suspicious pulmonary mass. Cardiomegaly. Patient underwent a nuclear med bone scan today which was a slightly suboptimal study due to body habitus. No suspicious increased radiotracer uptake to suggest metastatic disease to the bone or other suspicious abnormality. Symmetric uptake bilateral knee joings consistent with degenerative changes are present. [facility] accepted the patient for transfer, pathology is pending. Vitals today include blood pressure of 161/74, heart rate 54, 96% on room air. ROS Constitutional: Denied any fatigue denied any fever. Cardio vascular: denied any chest pain, chest pressure, reports palpitations Gastrointestinal denied any nausea vomiting, reports constipation, reports left abdominal pain, pressure/sharp like, rating 6/10 intermittent. Pulmonary: Denied any shortness of breath cough Neurologic denied any new focal deficits : Denies dysuria, reports persistent vaginal bleeding with clots, denies flank pain. All inpatient medications were reviewed and appropriate changes in these medications as dictated in the interval history and assessment and plan. PHYSICAL EXAMINATION: GENERAL: The patient is alert and oriented x3, not in any acute distress. Well developed, well nourished. Obese. HEENT: Pupils are round and equally reacting to light. EOMI. No scleral icterus. Does have conjunctival pallor. Normocephalic, atraumatic. No pharyngeal erythema. No thyromegaly. CARDIOVASCULAR: S1 and S2 present. No murmurs, rubs, or gallops. PULMONARY: Chest is clear to auscultation, no wheezing or crackles. ABDOMEN: Soft, nontender, nondistended, normoactive bowel sounds. No palpable organomegaly. NO CVA tenderness MUSCULOSKELETAL: No joint swelling or deformity. EXTREMITIES: No cyanosis, clubbing, or pedal edema. NEUROLOGICAL: Gross neurological examination did not reveal any focal deficits. SKIN: No rashes. : Deferred to [facility] Assessment and plan -Vaginal bleeding secondary to cervical mass obstructing cervix, pathology pending -Symptomatic anemia due to acute blood loss from vaginal bleeding, current he moglobin 8.0 s/p 4 units PRBC -Leukocytosis, probably reactive -Paroxysmal atrial fibrillation coumadin on hold, currently sinus bradycardia -Coagulopathy, -Type 2 diabetes mellitus, metformin O/H continue with novolog -Gastroesophageal reflux disease -Hypertension -Hypothyroidism DVT prophylaxis: No pharmacological anticoagulation because of her active bleeding GI Prophylaxis: Protonix FULL CODE Plan Transfuse PRBC's for hemoglobin <7 Repeat labs in AM Continue with telemetry monitoring Pathology pending Pending bed at [facility] Objective - Vital Signs Vital signs: Vital Signs Temp 97.5 F L 10/13/21 06:49 Pulse 58 L 10/13/21 06:49 Resp 16 10/13/21 06:49 BP 134/50 10/13/21 06:49 Pulse Ox 97 10/13/21 06:49 Intake & Output 10/12/21 10/13/21 10/13/21 18:59 06:59 18:59 Other: Voiding Method Toilet # Voids 6 - Labs CBC & Chem 7: 10/13/21 07:10 10/13/21 07:10 Labs: Abnormal Lab Results - Last 24 Hours (Table) 10/10/21 10/12/21 10/12/21 Range/Units 00:16 06:09 06:09 WBC 14.87 H (4.50-10.00) X 10*3/uL RBC 3.23 L (4.10-5.20) X 10*6/uL Hgb 7.4 L (12.0-15.0) g/dL Hct 25.8 L (37.2-46.3) % MCV 79.9 L (80.0-97.0) fL MCH 22.9 L (27.0-32.0) pg MCHC 28.7 L (32.0-37.0) g/dL RDW 19.6 H (11.5-14.5) % Absolute Nucleated RBC 0.04 H (0.00-0.00) X 10*3/uL Immature Gran # 0.25 H (0.00-0.04) X 10*3/uL Neutrophils # 11.93 H (1.80-7.70) X 10*3/uL Monocytes # 1.33 H (0.20-1.00) X 10*3/uL NRBC/100 WBC Diff 0.3 H (0.0-0.0) /100 WBCS Sodium (137-145) mmol/L Carbon Dioxide 18.9 L (20.0-27.5) mmol/L Glucose 157 H (70-110) mg/dL POC Glucose (mg/dL) (75-99) mg/dL Total Protein (6.3-8.2) g/dL Albumin (3.5-5.0) g/dL RBC Folate 1,165 H (280 - 791) ng/mL 10/12/21 10/12/21 10/12/21 Range/Units 11:29 12:18 16:36 WBC (4.50-10.00) X 10*3/uL RBC (4.10-5.20) X 10*6/uL Hgb (12.0-15.0) g/dL Hct (37.2-46.3) % MCV (80.0-97.0) fL MCH (27.0-32.0) pg MCHC (32.0-37.0) g/dL RDW (11.5-14.5) % Absolute Nucleated RBC (0.00-0.00) X 10*3/uL Immature Gran # (0.00-0.04) X 10*3/uL Neutrophils # (1.80-7.70) X 10*3/uL Monocytes # (0.20-1.00) X 10*3/uL NRBC/100 WBC Diff (0.0-0.0) /100 WBCS Sodium 134 L (137-145) mmol/L Carbon Dioxide (20.0-27.5) mmol/L Glucose 143 H (70-110) mg/dL POC Glucose (mg/dL) 162 H 177 H (75-99) mg/dL Total Protein 6.0 L (6.3-8.2) g/dL Albumin 3.0 L (3.5-5.0) g/dL RBC Folate (280 - 791) ng/mL 10/12/21 10/13/21 Range/Units 20:42 06:50 WBC (4.50-10.00) X 10*3/uL RBC (4.10-5.20) X 10*6/uL Hgb (12.0-15.0) g/dL Hct (37.2-46.3) % MCV (80.0-97.0) fL MCH (27.0-32.0) pg MCHC (32.0-37.0) g/dL RDW (11.5-14.5) % Absolute Nucleated RBC (0.00-0.00) X 10*3/uL Immature Gran # (0.00-0.04) X 10*3/uL Neutrophils # (1.80-7.70) X 10*3/uL Monocytes # (0.20-1.00) X 10*3/uL NRBC/100 WBC Diff (0.0-0.0) /100 WBCS Sodium (137-145) mmol/L Carbon Dioxide (20.0-27.5) mmol/L Glucose (70-110) mg/dL POC Glucose (mg/dL) 250 H 196 H (75-99) mg/dL Total Protein (6.3-8.2) g/dL Albumin (3.5-5.0) g/dL RBC Folate (280 - 791) ng/mL Microbiology - Last 24 Hours (Table) 10/10/21 02:49 Urine Culture - Final Urine,Catheterized Escherichia coli
[2021-10-14] MEDS: MORPHINE SULFATE 2 MG/ML SYRINGE IVP PRN ×3 (00:36→18:14)
[2021-10-14] MEDS: LEVOTHYROXINE 100 MCG TAB PO SCH (05:51)
[2021-10-14] MEDS: OCTREOTIDE 500 MCG in SODIUM CHLORIDE 0.9% 250 ML IV SCH (06:10)
[2021-10-14 06:48] LABS: Glucose,Whole Blood 203 mg/dL (75-99)
[2021-10-14] MEDS: INSULIN ASPART (NovoLOG) 100 UNIT/ML VIAL SQ SCH ×4 (07:16→20:19)
[2021-10-14] MEDS: carvediloL 12.5 MG TAB PO SCH ×2 (07:17→17:04)
[2021-10-14] MEDS: polyethylene glycoL 3350 17 GM POWD.PACK PO SCH (07:17)
[2021-10-14] MEDS: DOCUSATE 100 MG CAP PO SCH (07:17)
[2021-10-14] MEDS ORDERED: LACTULOSE 20 GM/30 ML CUP PO ONE (09:00)
--- NOTE | 2021-10-14 10:53 | P.PN ---
Subjective Progress Note Date: 10/14/21 61-year-old pleasant female came in with complains of vaginal bleeding is been going on for last couple days multiple episodes of bleeding with clots. Patient last menstrual cycle was many years ago. Patient is on Coumadin for atrial fibrillation patient INR is 3.7 on admission. Patient denied any symptoms of dysuria on admission but now she has some discomfort with his the [place] cath patient urine is bit abnormal that's because of the vaginal bleeding no fever no chills. Patient is found to have hemoglobin of 5.4 after transfusion of 2 units of PRBC, her present hemoglobin is 7.4. Patient was evaluated by [facility] services and patient will undergo dilatation and curettage tomorrow. 10/11/2021 Patient evaluated in the PACU pending D and C at noon today. She reports ongoing vaginal bleeding. Her INR today is 1.5 after 2 doses of vitamin K 5 mg, coumadin is on hold still. Patient is maintaining sinus isaias mechanism in the 50s. Patient said through out the evening she did have one episode of left chest pressure that resolved spontaneously. WBC today is 10.8, hgb 6.8, platelets 220. She has already received 2 units of PRBC, order to receive 2 more today. Patient currently denies any abdominal pain, nausea vomiting, diarrhea. She states that she is a bowel movement about 3 days. She denies any urinary urgency, frequency or dysuria. Urine cultures currently pending. Vitals today show a temp of 98.5, sinus bradycardia 57, blood pressure 134 with an unit and she is 94% on room air. 10/12/2021 Patient evaluated today sitting on the edge of the bed. She underwent a LEEP procedure yesterday and patient still has persistant vaginal bleeding with some clotting. Per patient bleeding starting about 1 year ago intermittently, and unfortunately she has not been evaluated by OBGYN for years. She denies any abdominal pain, nausea vomiting. She states that she has not had a bowel move ment since Saturday. Denies any chest pain, chest pressure. She has intermittent episodes of palpitations. Coumadin is on hold, most recent INR today is 1.1. White count is 14.7, hemoglobin 7.4 status post 4 units of PRBCs. Platelets are 327. Sodium 134. He is recommending hospital to hospital transfer for [facility] clinical specialist. 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 Biopsies were taken of the mass. Transfer process was initiated. While waiting for bed, oncology team started patient on sandostatin to try and control the bleeding, as well as CT chest to assist with staging. Vitals today; temp - 98.2, heart rate 59 sinus bradycardia, blood pressure 144/74, 97 on room air. Patient evaluated today sitting at the bedside. Vaginal bleeding persists, patients it has slowed a bit. She is complaining of left sided abdominal pain, as she describes "where the ovaries would be." She is requesting something stronger for a bowel movement today. She is still on octreotide infusion. WBC today is 11.50, hemoglobin 8.0, platelet 325. Chemistry panel is unremarkable today. Glucose in the 200s. Patient had a chest CT that showed no evidence for suspicious pulmonary mass. Cardiomegaly. Patient underwent a nuclear med bone scan today which was a slightly suboptimal study due to body habitus. No suspicious increased radiotracer uptake to suggest metastatic disease to the bone or other suspicious abnormality. Symmetric uptake bilateral knee joings consistent with degenerative changes are present. [facility] accepted the patient for transfer, pathology is pending. Vitals today include blood pressure of 161/74, heart rate 54, 96% on room air. 10/14/2021 Patient today resting in bed. She states that the lactulose worked however she is unable to pass the stool as it is firm, ordered a fleet enema to only give a small amount to hopefully break up the stool. Patient's reports ongoing vaginal bleeding, she states that has minimally slowed since yesterday. She still complaining of shortness abdominal pain to her left lower quadrant rating it a 10 she is receiving morphine IV push for pain management. We will also add Harrod. Difficult to assess an abdominal examination due to patient's body habitus and large pannus. Pending bed at [facility]. Pathology is pending still. Labs are pending from today. She continues on Octreotide infusion, plan to stop today and reassess bleeding per oncology. HR 55, bradycardic, decreased carvedilol, BP 134/70, afebrile, 93% on room air. ROS Constitutional: Denied any fatigue denied any fever. Cardio vascular: denied any chest pain, chest pressure, reports palpitations Gastrointestinal denied any nausea vomiting, reports constipation, reports left abdominal pain, pressure/sharp like, rating 8/10 intermittent. Pulmonary: Denied any shortness of breath cough Neurologic denied any new focal deficits : Denies dysuria, reports persistent vaginal bleeding with clots, denies flank pain. All inpatient medications were reviewed and appropriate changes in these medications as dictated in the interval history and assessment and plan. PHYSICAL EXAMINATION: GENERAL: The patient is alert and oriented x3, not in any acute distress. Well developed, well nourished. Obese. HEENT: Pupils are round and equally reacting to light. EOMI. No scleral icterus. Does have conjunctival pallor. Normocephalic, atraumatic. No pharyngeal erythema. No thyromegaly. CARDIOVASCULAR: S1 and S2 present. No murmurs, rubs, or gallops. PULMONARY: Chest is clear to auscultation, no wheezing or crackles. ABDOMEN: Soft, nontender, nondistended, normoactive bowel sounds. No palpable organomegaly. NO CVA tenderness MUSCULOSKELETAL: No joint swelling or deformity. EXTREMITIES: No cyanosis, clubbing, or pedal edema. NEUROLOGICAL: Gross neurological examination did not reveal any focal deficits. SKIN: No rashes. IV site right shoulder shows infiltration, large and puffy : Deferred to [facility] Assessment and plan -Vaginal bleeding secondary to cervical mass obstructing cervix, pathology pending -Symptomatic anemia due to acute blood loss from vaginal bleeding, s/p 4 units PRBC on octreotide -Leukocytosis, probably reactive -Paroxysmal atrial fibrillation coumadin on hold, currently sinus bradycardia -Coagulopathy, -Type 2 diabetes mellitus, metformin O/H continue with novolog -Gastroesophageal reflux disease -Hypertension -Hypothyroidism DVT prophylaxis: No pharmacological anticoagulation because of her active bleeding GI Prophylaxis: Protonix FULL CODE Plan Transfuse PRBC's for hemoglobin <7 Repeat labs in AM Continue with telemetry monitoring Pathology pending Pending bed at [facility] Objective - Vital Signs Vital signs: Vital Signs Temp 98.1 F 10/14/21 07:56 Pulse 57 L 10/14/21 07:56 Resp 17 10/14/21 07:56 BP 134/70 10/14/21 07:56 Pulse Ox 93 L 10/14/21 07:56 Intake & Output 12/03/21 12/04/21 12/04/21 18:59 06:59 18:59 Intake Total 880 201.459 480 Balance 880 201.459 480 Intake: Intake, IV Titration 400 201.459 Amount IV Fluid Continuation 1, 150 000 ml @ 0 mls/hr IV .[facility] Rx#:[id number] Octreotide 500 mcg In 250 201.459 Sodium Chloride 0.9% 250 ml @ 25 MCG/HR 12.5 mls/ hr IV .Q20H [facility] Rx#: [id number] Oral 480 480 Other: Voiding Method Toilet Toilet # Voids 2 4 - Labs CBC & Chem 7: 10/13/21 07:10 10/13/21 07:10 Labs: Abnormal Lab Results - Last 24 Hours (Table) 10/13/21 10/13/21 10/13/21 Range/Units 07:10 07:10 11:50 WBC 11.50 H (4.50-10.00) X 10*3/uL RBC 3.46 L (4.10-5.20) X 10*6/uL Hgb 8.0 L (12.0-15.0) g/dL Hct 28.6 L (37.2-46.3) % MCH 23.1 L (27.0-32.0) pg MCHC 28.0 L (32.0-37.0) g/dL RDW 20.5 H (11.5-14.5) % Absolute Nucleated RBC 0.03 H (0.00-0.00) X 10*3/uL Immature Gran # 0.21 H (0.00-0.04) X 10*3/uL Neutrophils # 8.31 H (1.80-7.70) X 10*3/uL Monocytes # 1.14 H (0.20-1.00) X 10*3/uL Eosinophils # 0.37 H (0.04-0.35) X 10*3/uL NRBC/100 WBC Diff 0.3 H (0.0-0.0) /100 WBCS Glucose 177 H (70-110) mg/dL POC Glucose (mg/dL) 202 H (75-99) mg/dL 10/13/21 10/13/21 10/14/21 Range/Units 16:14 20:20 06:47 WBC (4.50-10.00) X 10*3/uL RBC (4.10-5.20) X 10*6/uL Hgb (12.0-15.0) g/dL Hct (37.2-46.3) % MCH (27.0-32.0) pg MCHC (32.0-37.0) g/dL RDW (11.5-14.5) % Absolute Nucleated RBC (0.00-0.00) X 10*3/uL Immature Gran # (0.00-0.04) X 10*3/uL Neutrophils # (1.80-7.70) X 10*3/uL Monocytes # (0.20-1.00) X 10*3/uL Eosinophils # (0.04-0.35) X 10*3/uL NRBC/100 WBC Diff (0.0-0.0) /100 WBCS Glucose (70-110) mg/dL POC Glucose (mg/dL) 227 H 210 H 203 H (75-99) mg/dL
[2021-10-14] MEDS ORDERED: NA PHOS,M-B/NA PHOS,DI-BA 133 ML ENEMA RECTAL ONE (11:00)
[2021-10-14 11:26] LABS: Glucose,Whole Blood 199 mg/dL (75-99)
[2021-10-14 11:37] LABS: Basophils # (A) 0.08 X 10*3/uL (0.00-0.10); Basophils % (A) 0.8 %; Eosinophils # (A) 0.37 X 10*3/uL (0.04-0.35); Eosinophils % (A) 3.7 %; HGB 8.3 g/dL (12.0-15.0); Lymphocytes # (A) 0.91 X 10*3/uL (0.90-5.00); Lymphocytes % (A) 9.2 %; MCH 23.2 pg (27.0-32.0); MCHC 27.7 g/dL (32.0-37.0); MCV 83.8 fL (80.0-97.0); Mean Platelet Volume 10.3 fL (9.5-12.2); Monocytes # (A) 0.88 X 10*3/uL (0.20-1.00); Monocytes % (A) 8.9 %; Neutrophils # (A) 7.48 X 10*3/uL (1.80-7.70); Neutrophils % (A) 75.8 %; Platelet Count 365 X 10*3/uL (140-440); RBC 3.58 X 10*6/uL (4.10-5.20); RDW 21.3 % (11.5-14.5); WBC 9.88 X 10*3/uL (4.50-10.00)
[2021-10-14 16:16] LABS: Glucose,Whole Blood 214 mg/dL (75-99)
[2021-10-14 20:04] LABS: Glucose,Whole Blood 203 mg/dL (75-99)
[2021-10-14] MEDS: GABAPENTIN 100 MG CAP PO SCH (20:20)
[2021-10-15] MEDS: HYDROcodone/APAP 5-325MG 1 EACH TAB PO PRN ×4 (00:39→23:18)
[2021-10-15] MEDS: OCTREOTIDE 500 MCG in SODIUM CHLORIDE 0.9% 250 ML IV SCH (02:58)
[2021-10-15] MEDS: LEVOTHYROXINE 100 MCG TAB PO SCH (06:04)
[2021-10-15 07:13] LABS: Glucose,Whole Blood 185 mg/dL (75-99)
[2021-10-15] MEDS: DOCUSATE 100 MG CAP PO SCH (07:18)
[2021-10-15] MEDS: carvediloL 12.5 MG TAB PO SCH ×2 (07:18→16:54)
[2021-10-15] MEDS: PANTOPRAZOLE 40 MG TABLET PO SCH (07:18)
[2021-10-15] MEDS: INSULIN ASPART (NovoLOG) 100 UNIT/ML VIAL SQ SCH ×4 (07:18→21:45)
[2021-10-15 09:30] LABS: Basophils # (A) 0.09 X 10*3/uL (0.00-0.10); Eosinophils # (A) 0.35 X 10*3/uL (0.04-0.35); Eosinophils % (A) 3.7 %; Lymphocytes # (A) 1.07 X 10*3/uL (0.90-5.00); Lymphocytes % (A) 11.5 %; MCH 23.3 pg (27.0-32.0); MCV 83.1 fL (80.0-97.0); Mean Platelet Volume 10.2 fL (9.5-12.2); Monocytes # (A) 0.96 X 10*3/uL (0.20-1.00); Monocytes % (A) 10.3 %; Neutrophils # (A) 6.78 X 10*3/uL (1.80-7.70); Neutrophils % (A) 72.5 %; Platelet Count 306 X 10*3/uL (140-440); RBC 3.01 X 10*6/uL (4.10-5.20); RDW 21.2 % (11.5-14.5); WBC 9.34 X 10*3/uL (4.50-10.00)
[2021-10-15 09:52] LABS: African American GFR (CKD) 79.4 (60.0-200.0); Anion Gap 10.2 mmol/L (10.00-18.00); BUN/Creat Ratio 10.44 Ratio (12.00-20.00); Blood Urea Nitrogen 9.4 mg/dL (9.0-27.0); Calcium 8.5 mg/dL (8.7-10.3); Carbon Dioxide 23.8 mmol/L (20.0-27.5); Non-African American GFR(CKD) 68.5 (60.0-200.0); Potassium 4.4 mmol/L (3.5-5.5)
--- NOTE | 2021-10-15 09:55 | P.PN ---
Subjective Progress Note Date: 10/15/21 Principal diagnosis: likely new malignancy Continue with signs of vaginal bleeding, Holding sandostatin and will give a dose DDAVP. Objective - Vital Signs Vital signs: Vital Signs Temp 98.6 F 10/15/21 08:00 Pulse 55 L 10/15/21 08:00 Resp 18 10/15/21 08:00 BP 141/54 10/15/21 08:00 Pulse Ox 98 10/15/21 08:00 Intake & Output 10/14/21 10/15/21 10/15/21 18:59 06:59 18:59 Intake Total 480 250 Balance 480 250 Intake: Intake, IV Titration 250 Amount Octreotide 500 mcg In 250 Sodium Chloride 0.9% 250 ml @ 25 MCG/HR 12.5 mls/ hr IV .Q20H [facility] Rx#: [id number] Oral 480 Other: Voiding Method Toilet # Voids 3 - Exam Alert NAD Lungs: CTA Abdom: Tender Ext: Edema Heart: Irreg Morbid obesity + bleeding - Labs CBC & Chem 7: 10/15/21 03:56 10/15/21 03:56 Labs: Abnormal Lab Results - Last 24 Hours (Table) 10/14/21 10/14/21 10/14/21 Range/Units 08:14 11:25 16:15 RBC 3.58 L (4.10-5.20) X 10*6/uL Hgb 8.3 L (12.0-15.0) g/dL Hct 30.0 L (37.2-46.3) % MCH 23.2 L (27.0-32.0) pg MCHC 27.7 L (32.0-37.0) g/dL RDW 21.3 H (11.5-14.5) % Immature Gran # 0.16 H (0.00-0.04) X 10*3/uL Eosinophils # 0.37 H (0.04-0.35) X 10*3/uL BUN/Creatinine Ratio (12.00-20.00) Ratio Glucose (70-110) mg/dL POC Glucose (mg/dL) 199 H 214 H (75-99) mg/dL Calcium (8.7-10.3) mg/dL 10/14/21 10/15/21 10/15/21 Range/Units 20:03 03:56 03:56 RBC 3.01 L (4.10-5.20) X 10*6/uL Hgb 7.0 L (12.0-15.0) g/dL Hct 25.0 L (37.2-46.3) % MCH 23.3 L (27.0-32.0) pg MCHC 28.0 L (32.0-37.0) g/dL RDW 21.2 H (11.5-14.5) % Immature Gran # 0.09 H (0.00-0.04) X 10*3/uL Eosinophils # (0.04-0.35) X 10*3/uL BUN/Creatinine Ratio 10.44 L (12.00-20.00) Ratio Glucose 186 H (70-110) mg/dL POC Glucose (mg/dL) 203 H (75-99) mg/dL Calcium 8.5 L (8.7-10.3) mg/dL 10/15/21 Range/Units 07:12 RBC (4.10-5.20) X 10*6/uL Hgb (12.0-15.0) g/dL Hct (37.2-46.3) % MCH (27.0-32.0) pg MCHC (32.0-37.0) g/dL RDW (11.5-14.5) % Immature Gran # (0.00-0.04) X 10*3/uL Eosinophils # (0.04-0.35) X 10*3/uL BUN/Creatinine Ratio (12.00-20.00) Ratio Glucose (70-110) mg/dL POC Glucose (mg/dL) 185 H (75-99) mg/dL Calcium (8.7-10.3) mg/dL Assessment and Plan (1) Vaginal mass Current Visit: Yes Status: Acute Code(s): N89.8 - OTHER SPECIFIED NONINFLAMMATORY DISORDERS OF VAGINA SNOMED Code(s): 367598949 (2) Leukocytosis Current Visit: Yes Status: Acute Code(s): D72.829 - ELEVATED WHITE BLOOD CELL COUNT, UNSPECIFIED SNOMED Code(s): 247163138 (3) Coagulopathy Current Visit: Yes Status: Acute Priority: High Code(s): D68.9 - COAGULATION DEFECT, UNSPECIFIED SNOMED Code(s): 54000558 (4) Microcytic hypochromic anemia Current Visit: Yes Status: Acute Priority: High Code(s): D50.9 - IRON D EFICIENCY ANEMIA, UNSPECIFIED SNOMED Code(s): 93918141 (5) Vaginal hemorrhage Current Visit: Yes Status: Acute Code(s): N93.9 - ABNORMAL UTERINE AND VAGINAL BLEEDING, UNSPECIFIED SNOMED Code(s): 661726028 Plan: Assessment and Recommendations: Blood Loss Anemia: Vaginal Bleeding - If continuing to bleed will start Sandaostatin 50mcg SQx1, then 25mcg q8 hours till controlled - Prefer sandostatin over other agents, like amicar, given her medical cardiac history - Transfuse PRBC Hemoglobin <7 - Bleeding secondary to vaginal mass obstructing cervical view Vaginal Mass: - CT chest10/13 - Await Pathology for full recommendations Check baseline Vitamin D, TSH, and Ca125 Bone Scan and CT negative for evidence of metastatic disease Vaginal bleeding is improved, continue abbey through am and reassess Sandostatin discontinued and order of DDAVP (0.3mcg/kg) Also Have supplemented with parental Iron today Discussed with Nursing and patient
[2021-10-15 10:40] LABS: INR 1.1 (<1.2); Partial Thromboplastin Time 25.6 sec (22.0-30.0); Prothrombin Time 11.4 sec (9.0-12.0)
[2021-10-15 11:23] LABS: Glucose,Whole Blood 211 mg/dL (75-99)
--- NOTE | 2021-10-15 14:51 | P.PN ---
Subjective Progress Note Date: 10/15/21 61-year-old pleasant female came in with complains of vaginal bleeding is been going on for last couple days multiple episodes of bleeding with clots. Patient last menstrual cycle was many years ago. Patient is on Coumadin for atrial fibrillation patient INR is 3.7 on admission. Patient denied any symptoms of dysuria on admission but now she has some discomfort with his the [place] cath patient urine is bit abnormal that's because of the vaginal bleeding no fever no chills. Patient is found to have hemoglobin of 5.4 after transfusion of 2 units of PRBC, her present hemoglobin is 7.4. Patient was evaluated by [facility] services and patient will undergo dilatation and curettage tomorrow. 10/11/2021 Patient evaluated in the PACU pending D and C at noon today. She reports ongoing vaginal bleeding. Her INR today is 1.5 after 2 doses of vitamin K 5 mg, coumadin is on hold still. Patient is maintaining sinus isaias mechanism in the 50s. Patient said through out the evening she did have one episode of left chest pressure that resolved spontaneously. WBC today is 10.8, hgb 6.8, platelets 220. She has already received 2 units of PRBC, order to receive 2 more today. Patient currently denies any abdominal pain, nausea vomiting, diarrhea. She states that she is a bowel movement about 3 days. She denies any urinary urgency, frequency or dysuria. Urine cultures currently pending. Vitals today show a temp of 98.5, sinus bradycardia 57, blood pressure 134 with an unit and she is 94% on room air. 10/12/2021 Patient evaluated today sitting on the edge of the bed. She underwent a LEEP procedure yesterday and patient still has persistant vaginal bleeding with some clotting. Per patient bleeding starting about 1 year ago intermittently, and unfortunately she has not been evaluated by OBGYN for years. She denies any abdominal pain, nausea vomiting. She states that she has not had a bowel move ment since Saturday. Denies any chest pain, chest pressure. She has intermittent episodes of palpitations. Coumadin is on hold, most recent INR today is 1.1. White count is 14.7, hemoglobin 7.4 status post 4 units of PRBCs. Platelets are 327. Sodium 134. He is recommending hospital to hospital transfer for [facility] environmental health specialist. 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 Biopsies were taken of the mass. Transfer process was initiated. While waiting for bed, oncology team started patient on sandostatin to try and control the bleeding, as well as CT chest to assist with staging. Vitals today; temp - 98.2, heart rate 59 sinus bradycardia, blood pressure 144/74, 97 on room air. Patient evaluated today sitting at the bedside. Vaginal bleeding persists, patients it has slowed a bit. She is complaining of left sided abdominal pain, as she describes "where the ovaries would be." She is requesting something stronger for a bowel movement today. She is still on octreotide infusion. WBC today is 11.50, hemoglobin 8.0, platelet 325. Chemistry panel is unremarkable today. Glucose in the 200s. Patient had a chest CT that showed no evidence for suspicious pulmonary mass. Cardiomegaly. Patient underwent a nuclear med bone scan today which was a slightly suboptimal study due to body habitus. No suspicious increased radiotracer uptake to suggest metastatic disease to the bone or other suspicious abnormality. Symmetric uptake bilateral knee joings consistent with degenerative changes are present. [facility] accepted the patient for transfer, pathology is pending. Vitals today include blood pressure of 161/74, heart rate 54, 96% on room air. 10/14/2021 Patient today resting in bed. She states that the lactulose worked however she is unable to pass the stool as it is firm, ordered a fleet enema to only give a small amount to hopefully break up the stool. Patient's reports ongoing vaginal bleeding, she states that has minimally slowed since yesterday. She still complaining of shortness abdominal pain to her left lower quadrant rating it a 10 she is receiving morphine IV push for pain management. We will also add Odd. Difficult to assess an abdominal examination due to patient's body habitus and large pannus. Pending bed at [facility]. Pathology is pending still. Labs are pending from today. She continues on Octreotide infusion, plan to stop today and reassess bleeding per oncology. HR 55, bradycardic, decreased carvedilol, BP 134/70, afebrile, 93% on room air. 10/15/2021 Patient resting in bed. She states that her vaginal bleeding is improving greatly. However hemoglobin today dropped to 7 and she is ordered for 1 unit of PRBCs. Platelet count stable at 06, INR 1.1, d-dimer 0.68. Sodium 135, potassium 4.4, glucose in the 200s. Temp 98.6, heart rate 57 sinus bradycardia, blood pressure 162/69, 96 on room air. Patient had a bowel movement yesterday. We decreased coreg yesterday due to bradycardia, which now she is a bit hypertensive, added a small dose of lisinopril. She states there is no history of heart failure, she follows with cardiology office in [place]. Plan for today from oncology group is to hold Sandostatin and given a small dose of DDAVP. ROS Constitutional: Denied any fatigue denied any fever. Cardio vascular: denied any chest pain, chest pressure, reports palpitations Gastrointestinal denied any nausea vomiting, reports constipation, reports left abdominal pain, pressure/sharp like, rating 8/10 intermittent. Pulmonary: Denied any shortness of breath cough Neurologic denied any new focal deficits : Denies dysuria, reports persistent vaginal bleeding with clots, denies flank pain. All inpatient medications were reviewed and appropriate changes in these medications as dictated in the interval history and assessment and plan. PHYSICAL EXAMINATION: GENERAL: The patient is alert and oriented x3, not in any acute distress. Well developed, well nourished. Obese. HEENT: Pupils are round and equally reacting to light. EOMI. No scleral icterus. Does have conjunctival pallor. Normocephalic, atraumatic. No pharyngeal erythema. No thyromegaly. CARDIOVASCULAR: S1 and S2 present. No murmurs, rubs, or gallops. PULMONARY: Chest is clear to auscultation, no wheezing or crackles. ABDOMEN: Soft, nontender, nondistended, normoactive bowel sounds. No palpable organomegaly. NO CVA tenderness MUSCULOSKELETAL: No joint swelling or deformity. EXTREMITIES: No cyanosis, clubbing, or pedal edema. NEUROLOGICAL: Gross neurological examination did not reveal any focal deficits. SKIN: No rashes. : Deferred to [facility] Assessment and plan -Vaginal bleeding secondary to cervical mass obstructing cervix, pathology pending -Symptomatic anemia due to acute blood loss from vaginal bleeding, hgb today 7, s/p 4 unit PRBC -Leukocytosis, probably reactive, resolved -Paroxysmal atrial fibrillation coumadin on hold, currently sinus bradycardia -Coagulopathy, INR 1.1 -Type 2 diabetes mellitus, metformin O/H continue with novolog -Gastroesophageal reflux disease -Hypertension -Hypothyroidism DVT prophylaxis: No pharmacological anticoagulation because of her active bleeding GI Prophylaxis: Protonix FULL CODE Plan Transfuse 1 unit PRBC's today Repeat labs in AM Continue with telemetry monitoring Pathology pending Pending bed at [facility] Sandostation O/H, Objective - Vital Signs Vital signs: Vital Signs Temp 98.6 F 10/15/21 13:39 Pulse 57 L 10/15/21 13:39 Resp 18 10/15/21 13:39 BP 162/69 10/15/21 13:39 Pulse Ox 96 10/15/21 13:39 Intake & Output 10/14/21 10/15/21 10/15/21 18:59 06:59 18:59 Intake Total 480 250 Balance 480 250 Intake: Intake, IV Titration 250 Amount Octreotide 500 mcg In 250 Sodium Chloride 0.9% 250 ml @ 25 MCG/HR 12.5 mls/ hr IV .Q20H [facility] Rx#: [id number] Oral 480 Other: Voiding Method Toilet Toilet # Voids 3 - Labs CBC & Chem 7: 10/15/21 03:56 10/15/21 03:56 Labs: Abnormal Lab Results - Last 24 Hours (Table) 10/14/21 10/14/21 10/15/21 Range/Units 16:15 20:03 03:56 RBC 3.01 L (4.10-5.20) X 10*6/uL Hgb 7.0 L (12.0-15.0) g/dL Hct 25.0 L (37.2-46.3) % MCH 23.3 L (27.0-32.0) pg MCHC 28.0 L (32.0-37.0) g/dL RDW 21.2 H (11.5-14.5) % Immature Gran # 0.09 H (0.00-0.04) X 10*3/uL D-Dimer (<0.60) mg/L FEU BUN/Creatinine Ratio (12.00-20.00) Ratio Glucose (70-110) mg/dL POC Glucose (mg/dL) 214 H 203 H (75-99) mg/dL Calcium (8.7-10.3) mg/dL Crossmatch 10/15/21 10/15/21 10/15/21 Range/Units 03:56 07:12 09:59 RBC (4.10-5.20) X 10*6/uL Hgb (12.0-15.0) g/dL Hct (37.2-46.3) % MCH (27.0-32.0) pg MCHC (32.0-37.0) g/dL RDW (11.5-14.5) % Immature Gran # (0.00-0.04) X 10*3/uL D-Dimer (<0.60) mg/L FEU BUN/Creatinine Ratio 10.44 L (12.00-20.00) Ratio Glucose 186 H (70-110) mg/dL POC Glucose (mg/dL) 185 H (75-99) mg/dL Calcium 8.5 L (8.7-10.3) mg/dL Crossmatch See Detail 10/15/21 10/15/21 Range/Units 09:59 11:22 RBC (4.10-5.20) X 10*6/uL Hgb (12.0-15.0) g/dL Hct (37.2-46.3) % MCH (27.0-32.0) pg MCHC (32.0-37.0) g/dL RDW (11.5-14.5) % Immature Gran # (0.00-0.04) X 10*3/uL D-Dimer 0.68 H (<0.60) mg/L FEU BUN/Creatinine Ratio (12.00-20.00) Ratio Glucose (70-110) mg/dL POC Glucose (mg/dL) 211 H (75-99) mg/dL Calcium (8.7-10.3) mg/dL Crossmatch
[2021-10-15] MEDS: MORPHINE SULFATE 2 MG/ML SYRINGE IVP PRN (15:03)
[2021-10-15 16:26] LABS: Glucose,Whole Blood 219 mg/dL (75-99)
[2021-10-15] MEDS ORDERED: SODIUM CHLORIDE 0.9% IVPB ONE (18:00)
[2021-10-15] MEDS ORDERED: DESMOPRESSIN ACETATE IVPB ONE (18:00)
[2021-10-15 21:28] LABS: Glucose,Whole Blood 190 mg/dL (75-99)
[2021-10-15] MEDS: GABAPENTIN 100 MG CAP PO SCH (21:46)
[2021-10-15] MEDS: SODIUM FERRIC GLUCONAT-SUCROSE 125 MG in SODIUM CHLORIDE 0.9% 100 ML IVPB SCH (23:23)
[2021-10-16 00:12] LABS: Cancer Antigen 125 12.6 U/mL (0.0-30.1)
[2021-10-16] MEDS: LEVOTHYROXINE 100 MCG TAB PO SCH (05:27)
[2021-10-16 07:01] LABS: Glucose,Whole Blood 181 mg/dL (75-99)
[2021-10-16] MEDS: INSULIN ASPART (NovoLOG) 100 UNIT/ML VIAL SQ SCH ×4 (07:55→20:53)
[2021-10-16] MEDS: carvediloL 12.5 MG TAB PO SCH ×2 (07:55→16:46)
[2021-10-16] MEDS: DOCUSATE 100 MG CAP PO SCH (07:55)
[2021-10-16] MEDS ORDERED: lisinopriL 5 MG TAB PO SCH (09:00)
[2021-10-16] MEDS ORDERED: lisinopriL 10 MG TAB PO STA (09:15)
[2021-10-16] MEDS ORDERED: lisinopriL 20 MG TAB PO SCH (09:15)
[2021-10-16] MEDS: HYDROcodone/APAP 5-325MG 1 EACH TAB PO PRN ×3 (09:29→23:14)
[2021-10-16] MEDS: SODIUM FERRIC GLUCONAT-SUCROSE 125 MG in SODIUM CHLORIDE 0.9% 100 ML IVPB SCH (09:32)
[2021-10-16 10:36] LABS: Basophils # (A) 0.09 X 10*3/uL (0.00-0.10); Basophils % (A) 0.9 %; Eosinophils # (A) 0.28 X 10*3/uL (0.04-0.35); Eosinophils % (A) 2.7 %; HCT 27.3 % (37.2-46.3); HGB 7.5 g/dL (12.0-15.0); Lymphocytes # (A) 1.03 X 10*3/uL (0.90-5.00); Lymphocytes % (A) 9.8 %; MCH 23.2 pg (27.0-32.0); MCHC 27.5 g/dL (32.0-37.0); MCV 84.5 fL (80.0-97.0); Monocytes # (A) 0.93 X 10*3/uL (0.20-1.00); Monocytes % (A) 8.8 %; Neutrophils # (A) 8.11 X 10*3/uL (1.80-7.70); Platelet Count 321 X 10*3/uL (140-440); RBC 3.23 X 10*6/uL (4.10-5.20); RDW 21.2 % (11.5-14.5); WBC 10.52 X 10*3/uL (4.50-10.00)
[2021-10-16 10:51] LABS: African American GFR (CKD) 79.4 (60.0-200.0); Albumin 3.2 g/dL (3.8-4.9); Albumin/Globulin Ratio 1.28 (1.60-3.17); Anion Gap 10.7 mmol/L (10.00-18.00); BUN/Creat Ratio 11.22 Ratio (12.00-20.00); Blood Urea Nitrogen 10.1 mg/dL (9.0-27.0); Calcium 8.4 mg/dL (8.7-10.3); Carbon Dioxide 26.3 mmol/L (20.0-27.5); Globulin 2.5 g/dL (1.6-3.3); Non-African American GFR(CKD) 68.5 (60.0-200.0); Potassium 4.5 mmol/L (3.5-5.5); Total Bilirubin 0.7 mg/dL (0.30-1.20); Total Protein 5.7 g/dL (6.2-8.2)
[2021-10-16 11:29] LABS: Glucose,Whole Blood 219 mg/dL (75-99)
--- NOTE | 2021-10-16 13:37 | P.PN ---
Subjective Progress Note Date: 10/16/21 61-year-old pleasant female came in with complains of vaginal bleeding is been going on for last couple days multiple episodes of bleeding with clots. Patient last menstrual cycle was many years ago. Patient is on Coumadin for atrial fibrillation patient INR is 3.7 on admission. Patient denied any symptoms of dysuria on admission but now she has some discomfort with his the [place] cath patient urine is bit abnormal that's because of the vaginal bleeding no fever no chills. Patient is found to have hemoglobin of 5.4 after transfusion of 2 units of PRBC, her present hemoglobin is 7.4. Patient was evaluated by [facility] services and patient will undergo dilatation and curettage tomorrow. 10/11/2021 Patient evaluated in the PACU pending D and C at noon today. She reports ongoing vaginal bleeding. Her INR today is 1.5 after 2 doses of vitamin K 5 mg, coumadin is on hold still. Patient is maintaining sinus isaias mechanism in the 50s. Patient said through out the evening she did have one episode of left chest pressure that resolved spontaneously. WBC today is 10.8, hgb 6.8, platelets 220. She has already received 2 units of PRBC, order to receive 2 more today. Patient currently denies any abdominal pain, nausea vomiting, diarrhea. She states that she is a bowel movement about 3 days. She denies any urinary urgency, frequency or dysuria. Urine cultures currently pending. Vitals today show a temp of 98.5, sinus bradycardia 57, blood pressure 134 with an unit and she is 94% on room air. 10/12/2021 Patient evaluated today sitting on the edge of the bed. She underwent a LEEP procedure yesterday and patient still has persistant vaginal bleeding with some clotting. Per patient bleeding starting about 1 year ago intermittently, and unfortunately she has not been evaluated by OBGYN for years. She denies any abdominal pain, nausea vomiting. She states that she has not had a bowel move ment since Saturday. Denies any chest pain, chest pressure. She has intermittent episodes of palpitations. Coumadin is on hold, most recent INR today is 1.1. White count is 14.7, hemoglobin 7.4 status post 4 units of PRBCs. Platelets are 327. Sodium 134. He is recommending hospital to hospital transfer for [facility] oncology coordinator. 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 Biopsies were taken of the mass. Transfer process was initiated. While waiting for bed, oncology team started patient on sandostatin to try and control the bleeding, as well as CT chest to assist with staging. Vitals today; temp - 98.2, heart rate 59 sinus bradycardia, blood pressure 144/74, 97 on room air. Patient evaluated today sitting at the bedside. Vaginal bleeding persists, patients it has slowed a bit. She is complaining of left sided abdominal pain, as she describes "where the ovaries would be." She is requesting something stronger for a bowel movement today. She is still on octreotide infusion. WBC today is 11.50, hemoglobin 8.0, platelet 325. Chemistry panel is unremarkable today. Glucose in the 200s. Patient had a chest CT that showed no evidence for suspicious pulmonary mass. Cardiomegaly. Patient underwent a nuclear med bone scan today which was a slightly suboptimal study due to body habitus. No suspicious increased radiotracer uptake to suggest metastatic disease to the bone or other suspicious abnormality. Symmetric uptake bilateral knee joings consistent with degenerative changes are present. [facility] accepted the patient for transfer, pathology is pending. Vitals today include blood pressure of 161/74, heart rate 54, 96% on room air. 10/14/2021 Patient today resting in bed. She states that the lactulose worked however she is unable to pass the stool as it is firm, ordered a fleet enema to only give a small amount to hopefully break up the stool. Patient's reports ongoing vaginal bleeding, she states that has minimally slowed since yesterday. She still complaining of shortness abdominal pain to her left lower quadrant rating it a 10 she is receiving morphine IV push for pain management. We will also add Questa. Difficult to assess an abdominal examination due to patient's body habitus and large pannus. Pending bed at [facility]. Pathology is pending still. Labs are pending from today. She continues on Octreotide infusion, plan to stop today and reassess bleeding per oncology. HR 55, bradycardic, decreased carvedilol, BP 134/70, afebrile, 93% on room air. 10/15/2021 Patient resting in bed. She states that her vaginal bleeding is improving greatly. However hemoglobin today dropped to 7 and she is ordered for 1 unit of PRBCs. Platelet count stable at 06, INR 1.1, d-dimer 0.68. Sodium 135, potassium 4.4, glucose in the 200s. Temp 98.6, heart rate 57 sinus bradycardia, blood pressure 162/69, 96 on room air. Patient had a bowel movement yesterday. We decreased coreg yesterday due to bradycardia, which now she is a bit hypertensive, added a small dose of lisinopril. She states there is no history of heart failure, she follows with cardiology office in [place]. Plan for today from oncology group is to hold Sandostatin and given a small dose of DDAVP. 10/16/2021 Patient evaluated resting in bed. She still complains of some pain in her lower abdomen and pelvic region. She still continues to bleed is from yesterday however there are no clots. Hemoglobin today 7.5 after receiving a unit of blood yesterday. Additional labs include a white blood cell count of 10.52, sodium 134, sugars in the 180s. She had a consultation with radiology oncology today. Still pending a bed at [facility]. Bowels are moving daily now. Cervical pathology is still pending. Vital signs today show a temp of 98.2, heart rate 65, blood pressure 170/79 96% on room air. We did increase her lisinopril today. She is receiving IV iron as ordered by oncology today. ROS Constitutional: Denied any fatigue denied any fever. Cardio vascular: denied any chest pain, chest pressure, reports palpitations Gastrointestinal denied any nausea vomiting, reports constipation, reports p elvic pain. Pulmonary: Denied any shortness of breath cough Neurologic denied any new focal deficits : Denies dysuria, reports persistent vaginal bleeding, denies flank pain. All inpatient medications were reviewed and appropriate changes in these medications as dictated in the interval history and assessment and plan. PHYSICAL EXAMINATION: GENERAL: The patient is alert and oriented x3, not in any acute distress. Well developed, well nourished. Obese. HEENT: Pupils are round and equally reacting to light. EOMI. No scleral icterus. Does have conjunctival pallor. Normocephalic, atraumatic. No pharyngeal erythema. No thyromegaly. CARDIOVASCULAR: S1 and S2 present. No murmurs, rubs, or gallops. PULMONARY: Chest is clear to auscultation, no wheezing or crackles. ABDOMEN: Soft, nontender, nondistended, normoactive bowel sounds. No palpable organomegaly. NO CVA tenderness MUSCULOSKELETAL: No joint swelling or deformity. EXTREMITIES: No cyanosis, clubbing, or pedal edema. NEUROLOGICAL: Gross neurological examination did not reveal any focal deficits. SKIN: No rashes. : Deferred to [facility] Assessment and plan -Vaginal bleeding secondary to cervical mass obstructing cervix, pathology pending -Symptomatic anemia due to acute blood loss from vaginal bleeding, hgb today 7.5 s/p 5 units total PRBCs -Leukocytosis, probably reactive, -Paroxysmal atrial fibrillation coumadin on hold, sinus rhythm currently -Coagulopathy, INR 1.1 -Type 2 diabetes mellitus, metformin O/H continue with novolog -Gastroesophageal reflux disease -Hypertension -Hypothyroidism DVT prophylaxis: No pharmacological anticoagulation because of her active bleeding GI Prophylaxis: Protonix FULL CODE Plan Transfuse for hgb <7 Repeat labs in AM Continue with telemetry monitoring Pathology pending Pending bed at [facility] IV iron infusions Objective - Vital Signs Vital signs: Vital Signs Temp 98.2 F 10/16/21 07:51 Pulse 65 10/16/21 10:17 Resp 18 10/16/21 07:51 BP 178/79 10/16/21 10:17 Pulse Ox 96 10/16/21 07:51 Intake & Output 10/15/21 10/16/21 10/16/21 18:59 06:59 18:59 Intake Total 0 258 236 Balance 0 258 236 Intake: Oral 236 Blood Product 0 258 Rc As-1 Unit 0 258 [id number] Other: Voiding Method Toilet Toilet # Voids 2 1 - Labs CBC & Chem 7: 10/16/21 04:23 10/16/21 04:23 Labs: Abnormal Lab Results - Last 24 Hours (Table) 10/15/21 10/15/21 10/15/21 Range/Units 03:56 09:59 16:25 WBC (4.50-10.00) X 10*3/uL RBC (4.10-5.20) X 10*6/uL Hgb (12.0-15.0) g/dL Hct (37.2-46.3) % MCH (27.0-32.0) pg MCHC (32.0-37.0) g/dL RDW (11.5-14.5) % Immature Gran # (0.00-0.04) X 10*3/uL Neutrophils # (1.80-7.70) X 10*3/uL Sodium (135-145) mmol/L BUN/Creatinine Ratio (12.00-20.00) Ratio Glucose (70-110) mg/dL POC Glucose (mg/dL) 219 H (75-99) mg/dL Calcium (8.7-10.3) mg/dL Total Protein (6.2-8.2) g/dL Albumin (3.8-4.9) g/dL Albumin/Globulin Ratio (1.60-3.17) g/dL Vitamin D 25-Hydroxy 15.1 L (30.0-100.0) ng/mL Crossmatch See Detail 10/15/21 10/16/21 10/16/21 Range/Units 21:26 04:23 04:23 WBC 10.52 H (4.50-10.00) X 10*3/uL RBC 3.23 L (4.10-5.20) X 10*6/uL Hgb 7.5 L (12.0-15.0) g/dL Hct 27.3 L (37.2-46.3) % MCH 23.2 L (27.0-32.0) pg MCHC 27.5 L (32.0-37.0) g/dL RDW 21.2 H (11.5-14.5) % Immature Gran # 0.08 H (0.00-0.04) X 10*3/uL Neutrophils # 8.11 H (1.80-7.70) X 10*3/uL Sodium 134 L (135-145) mmol/L BUN/Creatinine Ratio 11.22 L (12.00-20.00) Ratio Glucose 173 H (70-110) mg/dL POC Glucose (mg/dL) 190 H (75-99) mg/dL Calcium 8.4 L (8.7-10.3) mg/dL Total Protein 5.7 L (6.2-8.2) g/dL Albumin 3.2 L (3.8-4.9) g/dL Albumin/Globulin Ratio 1.28 L (1.60-3.17) g/dL Vitamin D 25-Hydroxy (30.0-100.0) ng/mL Crossmatch 10/16/21 10/16/21 Range/Units 06:59 11:27 WBC (4.50-10.00) X 10*3/uL RBC (4.10-5.20) X 10*6/uL Hgb (12.0-15.0) g/dL Hct (37.2-46.3) % MCH (27.0-32.0) pg MCHC (32.0-37.0) g/dL RDW (11.5-14.5) % Immature Gran # (0.00-0.04) X 10*3/uL Neutrophils # (1.80-7.70) X 10*3/uL Sodium (135-145) mmol/L BUN/Creatinine Ratio (12.00-20.00) Ratio Glucose (70-110) mg/dL POC Glucose (mg/dL) 181 H 219 H (75-99) mg/dL Calcium (8.7-10.3) mg/dL Total Protein (6.2-8.2) g/dL Albumin (3.8-4.9) g/dL Albumin/Globulin Ratio (1.60-3.17) g/dL Vitamin D 25-Hydroxy (30.0-100.0) ng/mL Crossmatch
[2021-10-16 16:13] LABS: Glucose,Whole Blood 167 mg/dL (75-99)
--- NOTE | 2021-10-16 17:29 | P.CONS ---
History of Present Illness - Reason for Consult Consult date: 10/16/21 vaginal bleeding Requesting physician: Aaron Fountain - Chief Complaint vaginal bleeding - History of Present Illness The patient is a 61-year-old female with a history of type 2 diabetes and morbid obesity. She presents with vaginal bleeding, which progressed to passing clots. 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 The patient reports that she has had a small amount of vaginal spotting for the past year. She states that her primary care physician saw some blood in a urinalysis, and she was treated out of concern for hemorrhagic cystitis. The patient has been on anticoagulation for atrial fibrillation. However, when her bleeding worsened over the past several weeks, she presented to the ER on October 10. Her hemoglobin was found to be 5.7. A transvaginal ultrasound revealed a heterogeneous appearance to the uterus. She was seen by Dr. Ken in gynecology, and an examination on October 11 revealed a fungating mass seen within the vagina. The uterine cervix was not well visualized, but on digital examination the mass was felt to involve much of the cervix particularly more on the right. 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 The patient underwent a bone scan and the CT chest on October 13 which were both unremarkable. The patient has had multiple transfusions, and her hemoglobin continues to trend downward. Most recently, the patient's hemoglobin dropped from 8-7 over the weekend, and she was transfused another time. At this time, the patient reports her bleeding is much improved after having reversal of her Coumadin. She is still getting some cramping pain in the lower abdomen. This seems to be a bit worse after eating or moving her bowels. She states the pain can be up to 8 out of 10. However, on her current pain regimen it is typically 2-3. She reports no difficulty with urination or flank pain. When she was first admitted she had difficulty with constipation which has subsequently resolved. Review of Systems Constitutional: Denies chills, Denies fever Ears: deny: decreased hearing Cardiovascular: Reports edema, Denies chest pain Respiratory: Denies congestion, Denies cough Gastrointestinal: Reports constipation Genitourinary: Reports abnormal vaginal bleeding, Denies dysuria, Denies flank pain Integumentary: Denies acne Neurological: Denies aphasia, Denies ataxia, Denies confusion Psychiatric: Denies anxiety, Denies confusion Past Medical History Past Medical History: Atrial Fibrillation, Diabetes Mellitus, GERD/Reflux, Hypertension, Thyroid Disorder Additional Past Medical History / Comment(s): Pt states she has had intermittent vaginal bleeding over past one year, NIDDM type II, UTIs, hypothyroid, chronic low back pain, occasional bilateral leg pain at night. History of Any Multi-Drug Resistant Organisms: None Reported Past Surgical History: Heart Catheterization, Tonsillectomy, Uterine Ablation Additional Past Surgical History / Comment(s): Nasal fracture with surgery, wisdom teeth extractions. Past Anesthesia/Blood Transfusion Reactions: Postoperative Nausea & Vomiting (PO NV) Additional Past Anesthesia/Blood Transfusion Reaction / Comm: Pt received blood this hospitalization without reaction. Past Psychological History: Depression Additional Psychological History / Comment(s): Pt resides alone in an apartment. She uses a walker or cane. She drives. Smoking Status: Former smoker Past Alcohol Use History: None Reported Additional Past Alcohol Use History / Comment(s): PT started smoking as a teen and quit in 1994. Past Drug Use History: None Reported - Past Family History Father Family Medical History: Cancer Additional Family Medical History / Comment(s): Father of lung cancer. He was a smoker. Mother Family Medical History: Vascular Disorder Additional Family Medical History / Comment(s): Mother of a cerebral aneurysm at the age of 58 yrs. Medications and Allergies Home Medications Medication Instructions Recorded Confirmed Type Carvedilol [Coreg] 25 mg PO BID 10/10/21 10/10/21 History Gabapentin [Neurontin] 100 mg PO HS 10/10/21 10/10/21 History Levothyroxine Sodium 200 mcg PO DAILY 10/10/21 10/10/21 History Nitroglycerin Sl Tabs [Nitrostat] 0.4 mg SL Q5M PRN 10/10/21 10/10/21 History Nystatin 100,000Unit/gm Cream 1 applic TOPICAL BID PRN 10/10/21 10/10/21 History [Mycostatin Cream] Omeprazole 20 mg PO Q48H 10/10/21 10/10/21 History Warfarin [Coumadin] 3 mg PO HS 10/10/21 10/10/21 History metFORMIN HCL 500 mg PO AC-TID 10/10/21 10/10/21 History Allergies Allergy/AdvReac Type Severity Reaction Status Date / Time No Known Allergies Allergy Verified 10/10/21 07:42 Physical Exam Vitals: Vital Signs Temp Pulse Pulse Pulse Resp BP BP 10/16/21 14:00 97.6 F 67 16 133/71 10/16/21 10:17 65 178/79 10/16/21 07:51 98.2 F 63 18 193/76 10/16/21 02:07 98.4 F 65 16 134/68 10/15/21 21:21 98.5 F 57 L 17 142/54 10/15/21 20:00 57 L 17 10/15/21 19:49 97.8 F 61 16 187/78 10/15/21 17:59 98.0 F 59 L 18 155/64 10/15/21 17:29 98.2 F 57 L 16 153/79 Pulse Ox 10/16/21 14:00 96 10/16/21 10:17 10/16/21 07:51 96 10/16/21 02:07 95 10/15/21 21:21 95 10/15/21 20:00 10/15/21 19:49 96 10/15/21 17:59 99 10/15/21 17:29 99 Intake and Output 10/16/21 10/16/21 10/16/21 06:59 14:59 22:59 Intake Total 472 Balance 472 Intake: Oral 472 Other: # Voids 2 1 # Bowel Movements 1 - Constitutional General appearance: morbidly obese, no acute distress - EENT Eyes: EOMI, PERRLA - Neck Neck: no lymphadenopathy - Respiratory Respiratory: bilateral: diminished - Cardiovascular Rhythm: regular Heart sounds: normal: S1, S2 - Gastrointestinal General gastrointestinal: no distended, no tenderness - Integumentary Integumentary: no rash - Neurologic Neurologic: CNII-XII intact - Musculoskeletal Musculoskeletal: strength equal bilaterally - Psychiatric Psychiatric: A&O x's 3, appropriate affect Results CBC & Chem 7: 10/16/21 04:23 10/16/21 04:23 Labs: Abnormal Lab Results - Last 24 Hours (Table) 10/15/21 10/15/21 10/15/21 Range/Units 03:56 09:59 21:26 WBC (4.50-10.00) X 10*3/uL RBC (4.10-5.20) X 10*6/uL Hgb (12.0-15.0) g/dL Hct (37.2-46.3) % MCH (27.0-32.0) pg MCHC (32.0-37.0) g/dL RDW (11.5-14.5) % Immature Gran # (0.00-0.04) X 10*3/uL Neutrophils # (1.80-7.70) X 10*3/uL Sodium (135-145) mmol/L BUN/Creatinine Ratio (12.00-20.00) Ratio Glucose (70-110) mg/dL POC Glucose (mg/dL) 190 H (75-99) mg/dL Calcium (8.7-10.3) mg/dL Total Protein (6.2-8.2) g/dL Albumin (3.8-4.9) g/dL Albumin/Globulin Ratio (1.60-3.17) g/dL Vitamin D 25-Hydroxy 15.1 L (30.0-100.0) ng/mL Crossmatch See Detail 10/16/21 10/16/21 10/16/21 Range/Units 04:23 04:23 06:59 WBC 10.52 H (4.50-10.00) X 10*3/uL RBC 3.23 L (4.10-5.20) X 10*6/uL Hgb 7.5 L (12.0-15.0) g/dL Hct 27.3 L (37.2-46.3) % MCH 23.2 L (27.0-32.0) pg MCHC 27.5 L (32.0-37.0) g/dL RDW 21.2 H (11.5-14.5) % Immature Gran # 0.08 H (0.00-0.04) X 10*3/uL Neutrophils # 8.11 H (1.80-7.70) X 10*3/uL Sodium 134 L (135-145) mmol/L BUN/Creatinine Ratio 11.22 L (12.00-20.00) Ratio Glucose 173 H (70-110) mg/dL POC Glucose (mg/dL) 181 H (75-99) mg/dL Calcium 8.4 L (8.7-10.3) mg/dL Total Protein 5.7 L (6.2-8.2) g/dL Albumin 3.2 L (3.8-4.9) g/dL Albumin/Globulin Ratio 1.28 L (1.60-3.17) g/dL Vitamin D 25-Hydroxy (30.0-100.0) ng/mL Crossmatch 10/16/21 10/16/21 Range/Units 11:27 16:12 WBC (4.50-10.00) X 10*3/uL RBC (4.10-5.20) X 10*6/uL Hgb (12.0-15.0) g/dL Hct (37.2-46.3) % MCH (27.0-32.0) pg MCHC (32.0-37.0) g/dL RDW (11.5-14.5) % Immature Gran # (0.00-0.04) X 10*3/uL Neutrophils # (1.80-7.70) X 10*3/uL Sodium (135-145) mmol/L BUN/Creatinine Ratio (12.00-20.00) Ratio Glucose (70-110) mg/dL POC Glucose (mg/dL) 219 H 167 H (75-99) mg/dL Calcium (8.7-10.3) mg/dL Total Protein (6.2-8.2) g/dL Albumin (3.8-4.9) g/dL Albumin/Globulin Ratio (1.60-3.17) g/dL Vitamin D 25-Hydroxy (30.0-100.0) ng/mL Crossmatch CT scan - chest: report reviewed, image reviewed Assessment and Plan Assessment: The patient is a 61-year-old female with a history of type 2 diabetes and morbid obesity. She presents with vaginal bleeding, which progressed to passing clots. 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 Plan: 1. Cervical/Uterine tumor - Pathology preliminary concerning for Carcinosarcoma: Await final pathology (waiting on markers to definitively rule out squamous carcinoma). Need to check CT Abd/pelvis with contrast MATIAS. Continue to trend H/H - may need to initiate palliative RT if continued bleeding. Discussed with patient, but did not have prelim report from pathology at the time of our meeting. Time with Patient: Greater than 30
--- NOTE | 2021-10-16 20:10 | P.PN ---
Subjective Progress Note Date: 10/16/21 Principal diagnosis: likely new malignancy Bleeding has slowed but still present. She is receiving Iv Iron Objective - Vital Signs Vital signs: Vital Signs Temp 97.6 F 10/16/21 14:00 Pulse 67 10/16/21 14:00 Resp 16 10/16/21 14:00 BP 133/71 10/16/21 14:00 Pulse Ox 96 10/16/21 14:00 Intake & Output 10/16/21 10/16/21 10/17/21 06:59 18:59 06:59 Intake Total 258 708 Balance 258 708 Intake: Oral 708 Blood Product 258 Rc As-1 Unit 258 [id number] Other: Voiding Method Toilet # Voids 2 1 # Bowel Movements 1 - Exam Alert NAD Lungs: CTA Abdom: Tender Ext: Edema Heart: Irreg Morbid obesity + bleeding - Labs CBC & Chem 7: 10/16/21 04:23 10/16/21 04:23 Labs: Abnormal Lab Results - Last 24 Hours (Table) 10/15/21 10/15/21 10/15/21 Range/Units 03:56 09:59 21:26 WBC (4.50-10.00) X 10*3/uL RBC (4.10-5.20) X 10*6/uL Hgb (12.0-15.0) g/dL Hct (37.2-46.3) % MCH (27.0-32.0) pg MCHC (32.0-37.0) g/dL RDW (11.5-14.5) % Immature Gran # (0.00-0.04) X 10*3/uL Neutrophils # (1.80-7.70) X 10*3/uL Sodium (135-145) mmol/L BUN/Creatinine Ratio (12.00-20.00) Ratio Glucose (70-110) mg/dL POC Glucose (mg/dL) 190 H (75-99) mg/dL Calcium (8.7-10.3) mg/dL Total Protein (6.2-8.2) g/dL Albumin (3.8-4.9) g/dL Albumin/Globulin Ratio (1.60-3.17) g/dL Vitamin D 25-Hydroxy 15.1 L (30.0-100.0) ng/mL Crossmatch See Detail 12/06/21 12/06/21 12/06/21 Range/Units 04:23 04:23 06:59 WBC 10.52 H (4.50-10.00) X 10*3/uL RBC 3.23 L (4.10-5.20) X 10*6/uL Hgb 7.5 L (12.0-15.0) g/dL Hct 27.3 L (37.2-46.3) % MCH 23.2 L (27.0-32.0) pg MCHC 27.5 L (32.0-37.0) g/dL RDW 21.2 H (11.5-14.5) % Immature Gran # 0.08 H (0.00-0.04) X 10*3/uL Neutrophils # 8.11 H (1.80-7.70) X 10*3/uL Sodium 134 L (135-145) mmol/L BUN/Creatinine Ratio 11.22 L (12.00-20.00) Ratio Glucose 173 H (70-110) mg/dL POC Glucose (mg/dL) 181 H (75-99) mg/dL Calcium 8.4 L (8.7-10.3) mg/dL Total Protein 5.7 L (6.2-8.2) g/dL Albumin 3.2 L (3.8-4.9) g/dL Albumin/Globulin Ratio 1.28 L (1.60-3.17) g/dL Vitamin D 25-Hydroxy (30.0-100.0) ng/mL Crossmatch 10/16/21 10/16/21 Range/Units 11:27 16:12 WBC (4.50-10.00) X 10*3/uL RBC (4.10-5.20) X 10*6/uL Hgb (12.0-15.0) g/dL Hct (37.2-46.3) % MCH (27.0-32.0) pg MCHC (32.0-37.0) g/dL RDW (11.5-14.5) % Immature Gran # (0.00-0.04) X 10*3/uL Neutrophils # (1.80-7.70) X 10*3/uL Sodium (135-145) mmol/L BUN/Creatinine Ratio (12.00-20.00) Ratio Glucose (70-110) mg/dL POC Glucose (mg/dL) 219 H 167 H (75-99) mg/dL Calcium (8.7-10.3) mg/dL Total Protein (6.2-8.2) g/dL Albumin (3.8-4.9) g/dL Albumin/Globulin Ratio (1.60-3.17) g/dL Vitamin D 25-Hydroxy (30.0-100.0) ng/mL Crossmatch Assessment and Plan (1) Vaginal mass Current Visit: Yes Status: Acute Code(s): N89.8 - OTHER SPECIFIED NONINFLAMMATORY DISORDERS OF VAGINA SNOMED Code(s): 020108739 (2) Leukocytosis Current Visit: Yes Status: Acute Code(s): D72.829 - ELEVATED WHITE BLOOD CELL COUNT, UNSPECIFIED SNOMED Code(s): 400479122 (3) Coagulopathy Current Visit: Yes Status: Acute Priority: High Code(s): D68.9 - COAGULATION DEFECT, UNSPECIFIED SNOMED Code(s): 14550545 (4) Microcytic hypochromic anemia Current Visit: Yes Status: Acute Priority: High Code(s): D50.9 - IRON DEFICIENCY ANEMIA, UNSPECIFIED SNOMED Code(s): 44031282 (5) Vaginal hemorrhage Current Visit: Yes Status: Acute Code(s): N93.9 - ABNORMAL UTERINE AND VAGINAL BLEEDING, UNSPECIFIED SNOMED Code(s): 911217208 Plan: Assessment and Recommendations: Blood Loss Anemia: Vaginal Bleeding - If continuing to bleed will start Sandaostatin 50mcg SQx1, then 25mcg q8 hours till controlled - Prefer sandostatin over other agents, like amicar, given her medical cardiac history - Transfuse PRBC Hemoglobin <7 - Bleeding secondary to vaginal mass obstructing cervical view Vaginal Mass: - CT chest10/13 - Await Pathology for full recommendations Check baseline Vitamin D, TSH, and Ca125 Bone Scan and CT negative for evidence of metastatic disease Vaginal bleeding is improved, continue abbey through am and reassess Status post Sandostatin , discontinued 10/14 - abdominal spasms) and status post a dose of of DDAVP (0.3mcg/kg) Also Have supplemented with parental Iron today Discussed with Nursing and patient Path is still pending and we are still awiting bed Dr. Shoemaker is following along in the case of radiation therapy needing to control symptoms of bleeding Physician Attest: I have completed the full history and physical and agree with above dictation, dictated as a ascribe.
[2021-10-16 20:32] LABS: Glucose,Whole Blood 188 mg/dL (75-99)
[2021-10-16] MEDS: GABAPENTIN 100 MG CAP PO SCH (20:53)
[2021-10-16] MEDS ORDERED: INSULIN DETEMIR (LEVEMIR) 100 UNIT/ML SYR SQ SCH (21:00)
[2021-10-17] MEDS: LEVOTHYROXINE 100 MCG TAB PO SCH (05:27)
[2021-10-17 07:38] LABS: Glucose,Whole Blood 154 mg/dL (75-99)
[2021-10-17] MEDS: INSULIN ASPART (NovoLOG) 100 UNIT/ML VIAL SQ SCH ×4 (07:48→20:39)
[2021-10-17] MEDS: lisinopriL 20 MG TAB PO SCH (07:48)
[2021-10-17] MEDS: DOCUSATE 100 MG CAP PO SCH (07:49)
[2021-10-17] MEDS: PANTOPRAZOLE 40 MG TABLET PO SCH (07:49)
[2021-10-17] MEDS: carvediloL 12.5 MG TAB PO SCH ×2 (07:49→17:16)
[2021-10-17] MEDS: SODIUM FERRIC GLUCONAT-SUCROSE 125 MG in SODIUM CHLORIDE 0.9% 100 ML IVPB SCH (08:21)
[2021-10-17] MEDS: IOPAMIDOL CONTRAST (ORAL USE) VIAL PO PRN ×2 (09:30→10:26)
[2021-10-17 10:43] LABS: Anisocytosis Moderate; Basophils # (A) 0.1 k/uL (0-0.2); Basophils % (A) 1 %; Eosinophils # (A) 0.3 k/uL (0-0.7); Eosinophils % (A) 3 %; HCT 28.2 % (34.0-46.0); Hypochromasia Marked; Lymphocytes # (A) 0.9 k/uL (1.0-4.8); Lymphocytes % (A) 9 %; MCH 24.7 pg (25.0-35.0); MCHC 30.7 g/dL (31.0-37.0); Mean Platelet Volume 7.8; Microcytosis Slight; Monocytes # (A) 0.6 k/uL (0-1.0); Monocytes % (A) 6 %; Neutrophils # (A) 7.6 k/uL (1.3-7.7); Neutrophils % (A) 79 %; Platelet Count 353 k/uL (150-450); Poikilocytosis Marked; RDW 20.7 % (11.5-15.5); WBC 9.7 k/uL (3.8-10.6)
[2021-10-17 10:51] LABS: HGB 8.6 gm/dL (11.4-16.0); MCV 80.6 fL (80.0-100.0)
[2021-10-17] MEDS: HYDROcodone/APAP 5-325MG 1 EACH TAB PO PRN ×2 (11:33→17:16)
[2021-10-17 12:14] LABS: Glucose,Whole Blood 166 mg/dL (75-99)
--- NOTE | 2021-10-17 12:34 | CT ---
EXAMINATION TYPE: CT abdomen pelvis w con DATE OF EXAM: 10/17/2021 COMPARISON: None INDICATION: Vaginal Hemorrhage, anemia, UTI DLP: 5097 mGycm, Automated exposure control for dose reduction was used. CONTRAST: 100 mL of Isovue 300. Study performed with Oral Contrast TECHNIQUE: Axial images were obtained from above the diaphragm to the pubic rami in the axial plane a t 5 mm thick sections. Reconstructed images are reviewed on the computer in the coronal plane. FINDINGS: Limited CT sections are obtained the lung bases. The lung bases are clear. Coronary artery calcific ation is present. CT ABDOMEN: Liver: Normal Spleen: Normal Pancreas: Normal Adrenal glands: The adrenal glands are normal. Gallbladder: Normal Kidneys: No masses are evident. No hydronephrosis is present. No cysts are present. Delayed images were obtained through the kidneys, which remain unremarkable. Aorta: Vascular calcification is within the aorta. Inferior vena cava: Normal. CT PELVIS: There appears to be some subcutaneous edema present pelvis. Loops of bowel within the abdomen and pelvis are normal. There are loops of bowel lacking oral co ntrast limiting their evaluation. Appendix: Normal as visualized. Urinary bladder: Decompressed limiting evaluation. Genitourinary structures: Uterus is normal. Adnexal regions are normal. Osseous structures: No suspicious lytic or sclerotic lesions. IMPRESSIONS: 1. No suspicious abnormality to account for vaginal bleeding.
[2021-10-17] MEDS ORDERED: ERGOCALCIFEROL 1,250 MCG (50,000 IU) CAPSULE PO SCH (14:00)
--- NOTE | 2021-10-17 14:04 | P.PN ---
Subjective Progress Note Date: 10/17/21 61-year-old pleasant female came in with complains of vaginal bleeding is been going on for last couple days multiple episodes of bleeding with clots. Patient last menstrual cycle was many years ago. Patient is on Coumadin for atrial fibrillation patient INR is 3.7 on admission. Patient denied any symptoms of dysuria on admission but now she has some discomfort with his the [place] cath patient urine is bit abnormal that's because of the vaginal bleeding no fever no chills. Patient is found to have hemoglobin of 5.4 after transfusion of 2 units of PRBC, her present hemoglobin is 7.4. Patient was evaluated by MINE ENGINEER services and patient will undergo dilatation and curettage tomorrow. 10/11/2021 Patient evaluated in the PACU pending D and C at noon today. She reports ongoing vaginal bleeding. Her INR today is 1.5 after 2 doses of vitamin K 5 mg, coumadin is on hold still. Patient is maintaining sinus isaias mechanism in the 50s. Patient said through out the evening she did have one episode of left chest pressure that resolved spontaneously. WBC today is 10.8, hgb 6.8, platelets 220. She has already received 2 units of PRBC, order to receive 2 more today. Patient currently denies any abdominal pain, nausea vomiting, diarrhea. She states that she is a bowel movement about 3 days. She denies any urinary urgency, frequency or dysuria. Urine cultures currently pending. Vitals today show a temp of 98.5, sinus bradycardia 57, blood pressure 134 with an unit and she is 94% on room air. 10/12/2021 Patient evaluated today sitting on the edge of the bed. She underwent a LEEP procedure yesterday and patient still has persistant vaginal bleeding with some clotting. Per patient bleeding starting about 1 year ago intermittently, and unfortunately she has not been evaluated by OBGYN for years. She denies any abdominal pain, nausea vomiting. She states that she has not had a bowel move ment since Saturday. Denies any chest pain, chest pressure. She has intermittent episodes of palpitations. Coumadin is on hold, most recent INR today is 1.1. White count is 14.7, hemoglobin 7.4 status post 4 units of PRBCs. Platelets are 327. Sodium 134. He is recommending hospital to hospital transfer for MINE ENGINEER document processing specialist. 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 Biopsies were taken of the mass. Transfer process was initiated. While waiting for bed, oncology team started patient on sandostatin to try and control the bleeding, as well as CT chest to assist with staging. Vitals today; temp - 98.2, heart rate 59 sinus bradycardia, blood pressure 144/74, 97 on room air. Patient evaluated today sitting at the bedside. Vaginal bleeding persists, patients it has slowed a bit. She is complaining of left sided abdominal pain, as she describes "where the ovaries would be." She is requesting something stronger for a bowel movement today. She is still on octreotide infusion. WBC today is 11.50, hemoglobin 8.0, platelet 325. Chemistry panel is unremarkable today. Glucose in the 200s. Patient had a chest CT that showed no evidence for suspicious pulmonary mass. Cardiomegaly. Patient underwent a nuclear med bone scan today which was a slightly suboptimal study due to body habitus. No suspicious increased radiotracer uptake to suggest metastatic disease to the bone or other suspicious abnormality. Symmetric uptake bilateral knee joings consistent with degenerative changes are present. [facility] accepted the patient for transfer, pathology is pending. Vitals today include blood pressure of 161/74, heart rate 54, 96% on room air. 10/14/2021 Patient today resting in bed. She states that the lactulose worked however she is unable to pass the stool as it is firm, ordered a fleet enema to only give a small amount to hopefully break up the stool. Patient's reports ongoing vaginal bleeding, she states that has minimally slowed since yesterday. She still complaining of shortness abdominal pain to her left lower quadrant rating it a 10 she is receiving morphine IV push for pain management. We will also add [place]. Difficult to assess an abdominal examination due to patient's body habitus and large pannus. Pending bed at [facility]. Pathology is pending still. Labs are pending from today. She continues on Octreotide infusion, plan to stop today and reassess bleeding per oncology. HR 55, bradycardic, decreased carvedilol, BP 134/70, afebrile, 93% on room air. 10/15/2021 Patient resting in bed. She states that her vaginal bleeding is improving greatly. However hemoglobin today dropped to 7 and she is ordered for 1 unit of PRBCs. Platelet count stable at 06, INR 1.1, d-dimer 0.68. Sodium 135, potassium 4.4, glucose in the 200s. Temp 98.6, heart rate 57 sinus bradycardia, blood pressure 162/69, 96 on room air. Patient had a bowel movement yesterday. We decreased coreg yesterday due to bradycardia, which now she is a bit hypertensive, added a small dose of lisinopril. She states there is no history of heart failure, she follows with cardiology office in [place]. Plan for today from oncology group is to hold Sandostatin and given a small dose of DDAVP. 10/16/2021 Patient evaluated resting in bed. She still complains of some pain in her lower abdomen and pelvic region. She still continues to bleed is from yesterday however there are no clots. Hemoglobin today 7.5 after receiving a unit of blood yesterday. Additional labs include a white blood cell count of 10.52, sodium 134, sugars in the 180s. She had a consultation with radiology oncology today. Still pending a bed at [facility]. Bowels are moving daily now. Cervical pathology is still pending. Vital signs today show a temp of 98.2, heart rate 65, blood pressure 170/79 96% on room air. We did increase her lisinopril today. She is receiving IV iron as ordered by oncology today. 10/17/2021 Patient is evaluated today sitting at the bedside. She still complains of some abdominal pain as well as pain in her pelvic region. She is continuing to have vaginal bleeding and is increasing progressed during her son clots. She is evaluated by rad-onc who would consider palliative radiation. Patient is still pending a bed at [facility]. Abdominal pelvis CT with contrast reviewed which shows no suspicious abnormality to account for her vaginal bleeding. Uterus is normal. Adnexal regions are normal there are no suspicious lytic or sclerotic lesions. There is some subcutaneous edema present in the pelvis, loops of bowel within abdomen and pelvis are normal. Labs today, hemoglobin 8.6, white count 9.7. Vitamin D is low at 15.1. Temp 98.4, heart rate 60, blood pressure 172/74, she is 98% on room air. ROS Constitutional: Denied any fatigue denied any fever. Cardio vascular: denied any chest pain, chest pressure, reports palpitations Gastrointestinal denied any nausea vomiting, denies constipation, reports pelvic pain. Pulmonary: Denied any shortness of breath cough Neurologic denied any new focal deficits : Denies dysuria, reports persistent vaginal bleeding, denies flank pain. All inpatient medications were reviewed and appropriate changes in these medications as dictated in the interval history and assessment and plan. PHYSICAL EXAMINATION: GENERAL: The patient is alert and oriented x3, not in any acute distress. Well developed, well nourished. Obese. HEENT: Pupils are round and equally reacting to light. EOMI. No scleral icterus. Does have conjunctival pallor. Normocephalic, atraumatic. No pharyngeal erythema. No thyromegaly. CARDIOVASCULAR: S1 and S2 present. No murmurs, rubs, or gallops. PULMONARY: Chest is clear to auscultation, no wheezing or crackles. ABDOMEN: Soft, nontender, nondistended, normoactive bowel sounds. No palpable organomegaly. NO CVA tenderness MUSCULOSKELETAL: No joint swelling or deformity. EXTREMITIES: No cyanosis, clubbing, or pedal edema. NEUROLOGICAL: Gross neurological examination did not reveal any focal deficits. SKIN: No rashes. : Deferred to MINE ENGINEER Assessment and plan -Vaginal bleeding secondary to cervical mass obstructing cervix, pathology pending -Symptomatic anemia due to acute blood loss from vaginal bleeding, hgb today 8.6 s/p 5 units total PRBCs -Leukocytosis, probably reactive, resolved -Paroxysmal atrial fibrillation coumadin on hold, sinus rhythm currently -Coagulopathy, INR 1.1 -Type 2 diabetes mellitus, metformin O/H continue with novolog -Gastroesophageal reflux disease -Hypertension -Hypothyroidism -Low level Vitamin D DVT prophylaxis: No pharmacological anticoagulation because of her active bleeding GI Prophylaxis: Protonix FULL CODE Plan Transfuse for hgb <7 Repeat labs in AM Continue with telemetry monitoring Pathology pending Pending bed at [facility] IV iron infusions Start Drisdol weekly for 1 month Start Vitamin D3 2000 IU daily Increase levemir for hyperglycemia Objective - Vital Signs Vital signs: Vital Signs Temp 98.4 F 10/17/21 07:42 Pulse 60 10/17/21 07:42 Resp 18 10/17/21 07:42 BP 172/74 10/17/21 07:42 Pulse Ox 98 12/07/21 07:42 Intake & Output 10/16/21 10/17/21 10/17/21 18:59 06:59 18:59 Intake Total 708 Balance 708 Intake: Oral 708 Other: Voiding Method Toilet # Voids 1 2 # Bowel Movements 1 - Labs CBC & Chem 7: 10/17/21 10:12 10/16/21 04:23 Labs: Abnormal Lab Results - Last 24 Hours (Table) 10/16/21 10/16/21 10/17/21 Range/Units 16:12 20:30 07:37 RBC (3.80-5.40) m/uL Hgb (11.4-16.0) gm/dL Hct (34.0-46.0) % MCH (25.0-35.0) pg MCHC (31.0-37.0) g/dL RDW (11.5-15.5) % Lymphocytes # (1.0-4.8) k/uL POC Glucose (mg/dL) 167 H 188 H 154 H (75-99) mg/dL 10/17/21 10/17/21 Range/Units 10:12 12:09 RBC 3.50 L (3.80-5.40) m/uL Hgb 8.6 L D (11.4-16.0) gm/dL Hct 28.2 L (34.0-46.0) % MCH 24.7 L (25.0-35.0) pg MCHC 30.7 L (31.0-37.0) g/dL RDW 20.7 H (11.5-15.5) % Lymphocytes # 0.9 L (1.0-4.8) k/uL POC Glucose (mg/dL) 166 H (75-99) mg/dL
--- NOTE | 2021-10-17 16:20 | P.PN ---
Subjective Progress Note Date: 10/17/21 Principal diagnosis: likely new malignancy Pathology preliminary consistent with a carcinosarcoma. Will further evaluate CT abdomen and pelvis and await bed as surgical consult and plan is needed for best overall outcome in this situation. Objective - Vital Signs Vital signs: Vital Signs Temp 98.6 F 10/17/21 14:00 Pulse 52 L 10/17/21 14:00 Resp 16 10/17/21 14:00 BP 155/71 10/17/21 14:00 Pulse Ox 96 10/17/21 14:00 Intake & Output 10/16/21 10/17/21 10/17/21 18:59 06:59 18:59 Intake Total 708 Balance 708 Intake: Oral 708 Other: Voiding Method Toilet # Voids 1 2 # Bowel Movements 1 - Exam Alert NAD Lungs: CTA Abdom: Tender Ext: Edema Heart: Irreg Morbid obesity + bleeding - Labs CBC & Chem 7: 10/17/21 10:12 10/16/21 04:23 Labs: Abnormal Lab Results - Last 24 Hours (Table) 10/16/21 10/17/21 10/17/21 Range/Units 20:30 07:37 10:12 RBC 3.50 L (3.80-5.40) m/uL Hgb 8.6 L D (11.4-16.0) gm/dL Hct 28.2 L (34.0-46.0) % MCH 24.7 L (25.0-35.0) pg MCHC 30.7 L (31.0-37.0) g/dL RDW 20.7 H (11.5-15.5) % Lymphocytes # 0.9 L (1.0-4.8) k/uL POC Glucose (mg/dL) 188 H 154 H (75-99) mg/dL 10/17/21 Range/Units 12:09 RBC (3.80-5.40) m/uL Hgb (11.4-16.0) gm/dL Hct (34.0-46.0) % MCH (25.0-35.0) pg MCHC (31.0-37.0) g/dL RDW (11.5-15.5) % Lymphocytes # (1.0-4.8) k/uL POC Glucose (mg/dL) 166 H (75-99) mg/dL Assessment and Plan (1) Vaginal mass Current Visit: Yes Status: Acute Code(s): N89.8 - OTHER SPECIFIED NONINFLAMMATORY DISORDERS OF VAGINA SNOMED Code(s): 549628852 (2) Leukocytosis Current Visit: Yes Status: Acute Code(s): D72.829 - ELEVATED WHITE BLOOD CELL COUNT, UNSPECIFIED SNOMED Code(s): 128449142 (3) Coagulopathy Current Visit: Yes Status: Acute Priority: High Code(s): D68.9 - COAGULATION DEFECT, UNSPECIFIED SNOMED Code(s): 81890604 (4) Microcytic hypochromic anemia Current Visit: Yes Status: Acute Priority: High Code(s): D50.9 - IRON DEFICIENCY ANEMIA, UNSPECIFIED SNOMED Code(s): 52800587 (5) Vaginal hemorrhage Current Visit: Yes Status: Acute Code(s): N93.9 - ABNORMAL UTERINE AND VAGINAL BLEEDING, UNSPECIFIED SNOMED Code(s): 404518106 Plan: Assessment and Recommendations: Blood Loss Anemia: Vaginal Bleeding - If continuing to bleed will start Sandaostatin 50mcg SQx1, then 25mcg q8 h ours till controlled - Prefer sandostatin over other agents, like amicar, given her medical cardiac history - Transfuse PRBC Hemoglobin <7 - Bleeding secondary to vaginal mass obstructing cervical view Vaginal Mass: - CT chest10/13 - Await Pathology for full recommendations Check baseline Vitamin D, TSH, and Ca125 Bone Scan and CT negative for evidence of metastatic disease Vaginal bleeding is improved, continue abbey through am and reassess Status post Sandostatin , discontinued 10/14 - abdominal spasms) and status post a dose of of DDAVP (0.3mcg/kg) Also Have supplemented with parental Iron today Discussed with Nursing and patient Path is still pending and we are still awiting bed Dr. Shoemaker is following along in the case of radiation therapy needing to control symptoms of bleeding Pathology Preliminary consistent with Carcinosarcome - Plan for CT abd/pelvis, surgical consult and adjuvant chemotherapy with ifosfamide based regimen. COntinue parental iron Await bed [facility].
[2021-10-17 17:04] LABS: Glucose,Whole Blood 156 mg/dL (75-99)
[2021-10-17 20:14] LABS: Glucose,Whole Blood 165 mg/dL (75-99)
[2021-10-17] MEDS: INSULIN DETEMIR (LEVEMIR) 100 UNIT/ML SYR SQ SCH (20:39)
[2021-10-17] MEDS: GABAPENTIN 100 MG CAP PO SCH (20:39)
[2021-10-18] MEDS ORDERED: HYDROcodone/APAP 5-325MG 1 EACH TAB ONE (00:55)
[2021-10-18] MEDS: LEVOTHYROXINE 100 MCG TAB PO SCH (05:25)
[2021-10-18 07:09] LABS: Glucose,Whole Blood 147 mg/dL (75-99)
[2021-10-18] MEDS: INSULIN ASPART (NovoLOG) 100 UNIT/ML VIAL SQ SCH ×4 (07:52→21:27)
[2021-10-18] MEDS: carvediloL 12.5 MG TAB PO SCH ×2 (07:52→17:12)
[2021-10-18] MEDS: CHOLECALCIFEROL 25 MCG (1000 IU) TABLET PO SCH (07:52)
[2021-10-18] MEDS: HYDROcodone/APAP 5-325MG 1 EACH TAB PO PRN ×3 (07:53→21:28)
[2021-10-18] MEDS: DOCUSATE 100 MG CAP PO SCH (07:53)
[2021-10-18] MEDS: lisinopriL 20 MG TAB PO SCH (07:53)
[2021-10-18] MEDS: SODIUM FERRIC GLUCONAT-SUCROSE 125 MG in SODIUM CHLORIDE 0.9% 100 ML IVPB SCH (09:34)
[2021-10-18 09:41] LABS: Basophils # (A) 0.08 X 10*3/uL (0.00-0.10); Eosinophils # (A) 0.31 X 10*3/uL (0.04-0.35); Eosinophils % (A) 3.8 %; HCT 28.5 % (37.2-46.3); HGB 7.9 g/dL (12.0-15.0); INR 1.09 (0.90-1.11); Lymphocytes # (A) 1.01 X 10*3/uL (0.90-5.00); Lymphocytes % (A) 12.5 %; MCH 23.2 pg (27.0-32.0); MCHC 27.7 g/dL (32.0-37.0); MCV 83.8 fL (80.0-97.0); Mean Platelet Volume 9.9 fL (9.5-12.2); Monocytes # (A) 0.83 X 10*3/uL (0.20-1.00); Monocytes % (A) 10.3 %; Neutrophils # (A) 5.79 X 10*3/uL (1.80-7.70); Neutrophils % (A) 71.7 %; Platelet Count 336 X 10*3/uL (140-440); Prothrombin Time 11.9 sec (9.9-11.9); RDW 21.6 % (11.5-14.5); WBC 8.08 X 10*3/uL (4.50-10.00)
[2021-10-18 10:26] LABS: African American GFR (CKD) 83.9 (60.0-200.0); Anion Gap 11.1 mmol/L (10.00-18.00); BUN/Creat Ratio 12.91 Ratio (12.00-20.00); Blood Urea Nitrogen 11.1 mg/dL (9.0-27.0); Calcium 8.6 mg/dL (8.7-10.3); Carbon Dioxide 25.2 mmol/L (20.0-27.5); Non-African American GFR(CKD) 72.4 (60.0-200.0); Potassium 3.9 mmol/L (3.5-5.5)
[2021-10-18 11:41] LABS: Glucose,Whole Blood 168 mg/dL (75-99)
[2021-10-18 14:01] VITALS: BMI 61.9
[2021-10-18 16:38] LABS: Glucose,Whole Blood 156 mg/dL (75-99)
--- NOTE | 2021-10-18 19:17 | P.PN ---
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 Patient last menstrual cycle was many years ago. Patient is on Coumadin for atrial fibrillation patient INR is 3.7 on admission. Patient denied any symptoms of dysuria on admission but now she has some discomfort with his the [place] cath patient urine is bit abnormal that's because of the vaginal bleeding no fever no chills. Patient is found to have hemoglobin of 5.4 after transfusion of 2 units of PRBC, her present hemoglobin is 7.4. Patient was evaluated by ASSOCIATE DATA SCIENTIST services and patient will undergo dilatation and curettage tomorrow. 10/18/2021 Patient is seen and evaluated sitting up in bedside chair; feels anxious about pending biopsy results Vital signs are reviewed and remained stable; lab review shows to be BC 8.08, hemoglobin 7.9, sodium 132, potassium 3.9, BUN/creatinine of 11/0.9 Preliminary pathology reveals carcinosarcoma; CT of the abdomen and pelvis is completed and does not reveal any metastatic disease Bone scan is completed. No suspicious increased radiotracer uptake to suggest metastatic disease to the bone Patient awaits transfer to [facility] for further evaluation and treatment Objective - Vital Signs Vital signs: Vital Signs Temp 97.9 F 10/18/21 07:21 Pulse 58 L 10/18/21 07:21 Resp 18 10/18/21 07:21 BP 145/60 10/18/21 07:21 Pulse Ox 100 10/18/21 07:21 Intake & Output 10/17/21 10/18/21 10/18/21 18:59 06:59 18:59 Other: Voiding Method Toilet Toilet Toilet # Voids 3 # Bowel Movements 1 - Exam GENERAL: The patient is alert and oriented x3, not in any acute distress. Well developed, well nourished. Obese. HEENT: Pupils are round and equally reacting to light. EOMI. No scleral icterus. Does have conjunctival pallor. Normocephalic, atraumatic. No pharyngeal erythema. No thyromegaly. CARDIOVASCULAR: S1 and S2 present. No murmurs, rubs, or gallops. PULMONARY: Chest is clear to auscultation, no wheezing or crackles. ABDOMEN: Soft, nontender, nondistended, normoactive bowel sounds. No palpable organomegaly. NO CVA tenderness MUSCULOSKELETAL: No joint swelling or deformity. EXTREMITIES: No cyanosis, clubbing, or pedal edema. NEUROLOGICAL: Gross neurological examination did not reveal any focal deficits. SKIN: No rashes. - Labs CBC & Chem 7: 10/18/21 05:22 10/18/21 05:22 Labs: Abnormal Lab Results - Last 24 Hours (Table) 10/17/21 10/17/21 10/18/21 Range/Units 16:55 20:12 05:22 RBC 3.40 L (4.10-5.20) X 10*6/uL Hgb 7.9 L (12.0-15.0) g/dL Hct 28.5 L (37.2-46.3) % MCH 23.2 L (27.0-32.0) pg MCHC 27.7 L (32.0-37.0) g/dL RDW 21.6 H (11.5-14.5) % Immature Gran # 0.06 H (0.00-0.04) X 10*3/uL Sodium (135-145) mmol/L Glucose (70-110) mg/dL POC Glucose (mg/dL) 156 H 165 H (75-99) mg/dL Calcium (8.7-10.3) mg/dL 10/18/21 10/18/21 10/18/21 Range/Units 05:22 07:07 11:40 RBC (4.10-5.20) X 10*6/uL Hgb (12.0-15.0) g/dL Hct (37.2-46.3) % MCH (27.0-32.0) pg MCHC (32.0-37.0) g/dL RDW (11.5-14.5) % Immature Gran # (0.00-0.04) X 10*3/uL Sodium 132 L (135-145) mmol/L Glucose 129 H (70-110) mg/dL POC Glucose (mg/dL) 147 H 168 H (75-99) mg/dL Calcium 8.6 L (8.7-10.3) mg/dL Assessment and Plan Assessment: -Vaginal bleeding secondary to cervical mass obstructing cervix, pathology pe nding -Symptomatic anemia due to acute blood loss from vaginal bleeding, hgb today 8.6 s/p 5 units total PRBCs -Leukocytosis, probably reactive, resolved -Paroxysmal atrial fibrillation coumadin on hold, sinus rhythm currently -Coagulopathy, INR 1.1 -Type 2 diabetes mellitus, metformin O/H continue with novolog -Gastroesophageal reflux disease -Hypertension -Hypothyroidism -Low level Vitamin D DVT prophylaxis: No pharmacological anticoagulation because of her active bleeding GI Prophylaxis: Protonix FULL CODE Plan Transfuse for hgb <7 Repeat labs in AM Continue with telemetry monitoring Pathology pending Pending bed at [facility] IV iron infusions Start Drisdol weekly for 1 month Start Vitamin D3 2000 IU daily Increase levemir for hyperglycemia
[2021-10-18 20:35] LABS: Glucose,Whole Blood 174 mg/dL (75-99)
[2021-10-18] MEDS: INSULIN DETEMIR (LEVEMIR) 100 UNIT/ML SYR SQ SCH (21:28)
[2021-10-18] MEDS: GABAPENTIN 100 MG CAP PO SCH (21:28)
[2021-10-19] MEDS: LEVOTHYROXINE 100 MCG TAB PO SCH (05:41)
[2021-10-19 06:20] LABS: INR 1.1 (<1.2); Prothrombin Time 11.6 sec (9.0-12.0)
[2021-10-19 06:51] LABS: Glucose,Whole Blood 131 mg/dL (75-99)
[2021-10-19] MEDS: CHOLECALCIFEROL 25 MCG (1000 IU) TABLET PO SCH (07:33)
[2021-10-19] MEDS: carvediloL 12.5 MG TAB PO SCH ×2 (07:33→16:59)
[2021-10-19] MEDS: DOCUSATE 100 MG CAP PO SCH (07:33)
[2021-10-19] MEDS: lisinopriL 20 MG TAB PO SCH (07:33)
[2021-10-19] MEDS: PANTOPRAZOLE 40 MG TABLET PO SCH (07:33)
[2021-10-19] MEDS: HYDROcodone/APAP 5-325MG 1 EACH TAB PO PRN ×3 (07:34→19:39)
[2021-10-19] MEDS: INSULIN ASPART (NovoLOG) 100 UNIT/ML VIAL SQ SCH ×4 (07:40→20:58)
[2021-10-19 09:03] LABS: Basophils # (A) 0.07 X 10*3/uL (0.00-0.10); Basophils % (A) 0.9 %; Eosinophils # (A) 0.33 X 10*3/uL (0.04-0.35); Eosinophils % (A) 4.2 %; HCT 28.9 % (37.2-46.3); Lymphocytes # (A) 1.03 X 10*3/uL (0.90-5.00); Lymphocytes % (A) 13.2 %; MCH 23.6 pg (27.0-32.0); MCHC 27.7 g/dL (32.0-37.0); MCV 85.3 fL (80.0-97.0); Mean Platelet Volume 9.9 fL (9.5-12.2); Monocytes % (A) 11.5 %; Neutrophils # (A) 5.41 X 10*3/uL (1.80-7.70); Neutrophils % (A) 69.4 %; Platelet Count 315 X 10*3/uL (140-440); RBC 3.39 X 10*6/uL (4.10-5.20)
[2021-10-19 09:38] LABS: African American GFR (CKD) 79.4 (60.0-200.0); Anion Gap 10.6 mmol/L (10.00-18.00); BUN/Creat Ratio 9.11 Ratio (12.00-20.00); Blood Urea Nitrogen 8.2 mg/dL (9.0-27.0); Calcium 8.8 mg/dL (8.7-10.3); Carbon Dioxide 27.4 mmol/L (20.0-27.5); Non-African American GFR(CKD) 68.5 (60.0-200.0); Potassium 4.2 mmol/L (3.5-5.5)
[2021-10-19] MEDS: SODIUM FERRIC GLUCONAT-SUCROSE 125 MG in SODIUM CHLORIDE 0.9% 100 ML IVPB SCH (10:04)
[2021-10-19 11:09] LABS: Glucose,Whole Blood 160 mg/dL (75-99)
--- NOTE | 2021-10-19 12:56 | P.PN ---
Subjective Progress Note Date: 10/19/21 Principal diagnosis: Vaginal hemorrhage In f/u pt states less vaginal bleeding, no other bleeding Objective - Vital Signs Vital signs: Vital Signs Temp 98.4 F 10/19/21 09:17 Pulse 61 10/19/21 09:17 Resp 16 10/19/21 09:17 BP 152/55 10/19/21 09:17 Pulse Ox 98 10/19/21 09:17 Intake & Output 10/18/21 10/19/21 10/19/21 18:59 06:59 18:59 Intake Total 236 Balance 236 Weight 184.6 kg Intake: Oral 236 Other: Voiding Method Toilet Toilet # Voids 1 2 - Constitutional General appearance: Present: cooperative, morbidly obese, no acute distress - EENT Eyes: Present: anicteric sclerae, EOMI ENT: Present: hearing grossly normal - Respiratory Details: resp even and unlabored - Neurologic Neurologic: Present: CNII-XII intact - Musculoskeletal Musculoskeletal: Present: strength equal bilaterally - Psychiatric Psychiatric: Present: A&O x's 3, appropriate affect, intact judgment & insight - Labs CBC & Chem 7: 10/19/21 05:14 10/19/21 05:14 Labs: Abnormal Lab Results - Last 24 Hours (Table) 10/18/21 10/18/21 10/19/21 Range/Units 16:37 20:33 05:14 RBC 3.39 L (4.10-5.20) X 10*6/uL Hgb 8.0 L (12.0-15.0) g/dL Hct 28.9 L (37.2-46.3) % MCH 23.6 L (27.0-32.0) pg MCHC 27.7 L (32.0-37.0) g/dL RDW 22.0 H (11.5-14.5) % Immature Gran # 0.06 H (0.00-0.04) X 10*3/uL BUN (9.0-27.0) mg/dL BUN/Creatinine Ratio (12.00-20.00) Ratio Glucose (70-110) mg/dL POC Glucose (mg/dL) 156 H 174 H (75-99) mg/dL 10/19/21 10/19/21 10/19/21 Range/Units 05:14 06:49 11:06 RBC (4.10-5.20) X 10*6/uL Hgb (12.0-15.0) g/dL Hct (37.2-46.3) % MCH (27.0-32.0) pg MCHC (32.0-37.0) g/dL RDW (11.5-14.5) % Immature Gran # (0.00-0.04) X 10*3/uL BUN 8.2 L (9.0-27.0) mg/dL BUN/Creatinine Ratio 9.11 L (12.00-20.00) Ratio Glucose 129 H (70-110) mg/dL POC Glucose (mg/dL) 131 H 160 H (75-99) mg/dL Assessment and Plan (1) Microcytic hypochromic anemia Narrative/Plan: 2/2 acute on chronic blood losses from malignancy. Pt is s/p 5 units PRBCs, she is receiving parenteral iron, vaginal bleeding has slowed down. Current Visit: Yes Status: Acute Priority: High Code(s): D50.9 - IRON DEFICIENCY ANEMIA, UNSPECIFIED SNOMED Code(s): 61937709 (2) Coagulopathy Narrative/Plan: S/P vitamin K, sandostatin, DDAVP. Bleeding has slowed but persists. INR is now WNL, coumadin has been held. 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 Pending transfer to [facility] for surgical evaluation and intervention. Radiation Oncology has been following in case urgent need for intervention. F/U after surgery. attests: I performed H&P, seen and examined pt, developed impression and plan of care. Discussed with dictator. Agree with dictation, documented as a scribe.
[2021-10-19 16:06] LABS: Glucose,Whole Blood 156 mg/dL (75-99)
--- NOTE | 2021-10-19 17:26 | P.PN ---
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 Patient last menstrual cycle was many years ago. Patient is on Coumadin for atrial fibrillation patient INR is 3.7 on admission. Patient denied any symptoms of dysuria on admission but now she has some discomfort with his the [place] cath patient urine is bit abnormal that's because of the vaginal bleeding no fever no chills. Patient is found to have hemoglobin of 5.4 after transfusion of 2 units of PRBC, her present hemoglobin is 7.4. Patient was evaluated by FACILITIES ENGINEERING MANAGER services and patient will undergo dilatation and curettage tomorrow. 10/18/2021 Patient is seen and evaluated sitting up in bedside chair; feels anxious about pending biopsy results Vital signs are reviewed and remained stable; lab review shows to be BC 8.08, hemoglobin 7.9, sodium 132, potassium 3.9, BUN/creatinine of 11/0.9 Preliminary pathology reveals carcinosarcoma; CT of the abdomen and pelvis is completed and does not reveal any metastatic disease Bone scan is completed. No suspicious increased radiotracer uptake to suggest metastatic disease to the bone Patient awaits transfer to [facility] for further evaluation and treatment 10/19/2021 Patient is seen and evaluated sitting up in bed; denies any specific complaints; reports less vaginal bleeding in the past 24 hours Vital signs are stable temperature 98.4, pulse 61, respirations 16 and blood pressure 152/55 Lab review reveals hemoglobin of 8.0; patient is status post transfusion with 5 units of packed RBCs since admission; has been treated with vitamin K, Sandostatin and DDAVP; bleeding slowed down significantly 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 Pending transfer to [facility] for surgical evaluation and intervention. Radiation Oncology has been following in case urgent need for intervention. F/U after surgery. Objective - Vital Signs Vital signs: Vital Signs Temp 98.4 F 10/19/21 09:17 Pulse 61 10/19/21 09:17 Resp 16 10/19/21 09:17 BP 152/55 10/19/21 09:17 Pulse Ox 98 10/19/21 09:17 Intake & Output 10/18/21 10/19/21 10/19/21 18:59 06:59 18:59 Intake Total 236 Balance 236 Weight 184.6 kg Intake: Oral 236 Other: Voiding Method Toilet Toilet # Voids 1 2 - Exam GENERAL: The patient is alert and oriented x3, not in any acute distress. Well developed, well nourished. Obese. HEENT: Pupils are round and equally reacting to light. EOMI. No scleral icterus. Does have conjunctival pallor. Normocephalic, atraumatic. No pharyngeal erythema. No thyromegaly. CARDIOVASCULAR: S1 and S2 present. No murmurs, rubs, or gallops. PULMONARY: Chest is clear to auscultation, no wheezing or crackles. ABDOMEN: Soft, nontender, nondistended, normoactive bowel sounds. No palpable organomegaly. NO CVA tenderness MUSCULOSKELETAL: No joint swelling or deformity. EXTREMITIES: No cyanosis, clubbing, or pedal edema. NEUROLOGICAL: Gross neurological examination did not reveal any focal deficits. SKIN: No rashes. - Labs CBC & Chem 7: 10/19/21 05:14 10/19/21 05:14 Labs: Abnormal Lab Results - Last 24 Hours (Table) 10/18/21 10/18/21 10/19/21 Range/Units 16:37 20:33 05:14 RBC 3.39 L (4.10-5.20) X 10*6/uL Hgb 8.0 L (12.0-15.0) g/dL Hct 28.9 L (37.2-46.3) % MCH 23.6 L (27.0-32.0) pg MCHC 27.7 L (32.0-37.0) g/dL RDW 22.0 H (11.5-14.5) % Immature Gran # 0.06 H (0.00-0.04) X 10*3/uL BUN (9.0-27.0) mg/dL BUN/Creatinine Ratio (12.00-20.00) Ratio Glucose (70-110) mg/dL POC Glucose (mg/dL) 156 H 174 H (75-99) mg/dL 10/19/21 10/19/21 10/19/21 Range/Units 05:14 06:49 11:06 RBC (4.10-5.20) X 10*6/uL Hgb (12.0-15.0) g/dL Hct (37.2-46.3) % MCH (27.0-32.0) pg MCHC (32.0-37.0) g/dL RDW (11.5-14.5) % Immature Gran # (0.00-0.04) X 10*3/uL BUN 8.2 L (9.0-27.0) mg/dL BUN/Creatinine Ratio 9.11 L (12.00-20.00) Ratio Glucose 129 H (70-110) mg/dL POC Glucose (mg/dL) 131 H 160 H (75-99) mg/dL Assessment and Plan Assessment: -Vaginal bleeding secondary to cervical mass obstructing cervix, pathology pending -Symptomatic anemia due to acute blood loss from vaginal bleeding, hgb today 8.6 s/p 5 units total PRBCs -Leukocytosis, probably reactive, resolved -Paroxysmal atrial fibrillation coumadin on hold, sinus rhythm currently -Coagulopathy, INR 1.1 -Type 2 diabetes mellitus, metformin O/H continue with novolog -Gastroesophageal reflux disease -Hypertension -Hypothyroidism -Low level Vitamin D DVT prophylaxis: No pharmacological anticoagulation because of her active bleeding GI Prophylaxis: Protonix FULL CODE Plan Transfuse for hgb <7 Repeat labs in AM Continue with telemetry monitoring Pathology pending Pending bed at [facility] IV iron infusions Start Drisdol weekly for 1 month Start Vitamin D3 2000 IU daily Increase levemir for hyperglycemia
[2021-10-19 20:14] LABS: Glucose,Whole Blood 190 mg/dL (75-99)
[2021-10-19] MEDS: GABAPENTIN 100 MG CAP PO SCH (20:59)
[2021-10-19] MEDS: INSULIN DETEMIR (LEVEMIR) 100 UNIT/ML SYR SQ SCH (20:59)
[2021-10-20] MEDS: HYDROcodone/APAP 5-325MG 1 EACH TAB PO PRN ×4 (02:42→20:44)
[2021-10-20] MEDS: LEVOTHYROXINE 100 MCG TAB PO SCH (05:37)
[2021-10-20 06:52] LABS: Glucose,Whole Blood 143 mg/dL (75-99)
[2021-10-20] MEDS: DOCUSATE 100 MG CAP PO SCH (08:14)
[2021-10-20] MEDS: lisinopriL 20 MG TAB PO SCH (08:15)
[2021-10-20] MEDS: INSULIN ASPART (NovoLOG) 100 UNIT/ML VIAL SQ SCH ×4 (08:15→20:43)
[2021-10-20] MEDS: carvediloL 12.5 MG TAB PO SCH ×2 (08:15→16:49)
[2021-10-20] MEDS: CHOLECALCIFEROL 25 MCG (1000 IU) TABLET PO SCH (08:15)
[2021-10-20 09:23] LABS: INR 1.06 (0.90-1.11); Prothrombin Time 11.9 sec (9.9-11.9)
[2021-10-20 11:26] LABS: Glucose,Whole Blood 159 mg/dL (75-99)
--- NOTE | 2021-10-20 14:33 | P.PN ---
Subjective Progress Note Date: 10/20/21 The patient reports marked improvement in her vaginal bleeding. She states she now gets some bleeding only when she strains. She denied any chest pain, or shortness of breath over baseline. Objective - Vital Signs Vital signs: Vital Signs Temp 97.7 F 10/20/21 08:00 Pulse 58 L 10/20/21 08:00 Resp 18 10/20/21 08:00 BP 172/80 10/20/21 08:00 Pulse Ox 99 10/20/21 08:00 Intake & Output 10/19/21 10/20/21 10/20/21 18:59 06:59 18:59 Intake Total 1200 Balance 1200 Intake: Oral 1200 Other: Voiding Method Toilet Toilet Toilet # Voids 4 4 - Constitutional General appearance: Present: no acute distress - EENT Eyes: Present: EOMI ENT: Present: hearing grossly normal, normal oropharynx - Respiratory Respiratory: bilateral: CTA - Cardiovascular Rhythm: regular Heart sounds: normal: S1, S2 - Gastrointestinal General gastrointestinal: Present: normal bowel sounds, soft - Integumentary Integumentary: Present: normal - Neurologic Neurologic: Present: CNII-XII intact - Musculoskeletal Musculoskeletal: Present: generalized weakness, strength equal bilaterally - Psychiatric Psychiatric: Present: A&O x's 3, appropriate affect - Labs CBC & Chem 7: 10/19/21 05:14 10/19/21 05:14 Labs: Abnormal Lab Results - Last 24 Hours (Table) 10/19/21 10/19/21 10/20/21 Range/Units 16:04 20:12 06:50 POC Glucose (mg/dL) 156 H 190 H 143 H (75-99) mg/dL 10/20/21 Range/Units 11:24 POC Glucose (mg/dL) 159 H (75-99) mg/dL Assessment and Plan (1) Anemia Narrative/Plan: Vaginal bleeding has gradually diminished in intensity. Patient has not required no transfusions now for several days. Continue to hold at the [facility] (formerly [facility])[3]. Continue to monitor CBC and transfuse to keep hemoglobin greater than 7. Also received IV iron. Current Visit: Yes Status: Acute Code(s): D64.9 - ANEMIA, UNSPECIFIED SNOMED Code(s): 136950054 (2) Carcinosarcoma of body of uterus Narrative/Plan: Since pathology confirms the same. She has had metastatic workup with CT of the abdomen and pelvis, in addition to CT of the chest and bone scan showing no evidence of metastatic disease. As the patient had significant, symptomatic vaginal bleeding from the same, it is felt to be most appropriate that she be transferred for traffic maintenance supervisor surgical evaluation directly, rather than be discharged and follow up as an outpatient. At this time we're still awaiting transfer to tertiary facility for GLAZING DEPARTMENT SUPERVISOR oncology evaluation. This has been delayed due to lack of bed availability. - Continue supportive treatment in terms of transfusions while patient is here. - Case has been extensively discussed with the addition of oncology, who also informally discussed the case with GLAZING DEPARTMENT SUPERVISOR oncology at [facility]. They agreed that the patient should have primary surgical treatment, and agree with plan for transfer. No indication for radiation, unless the patient requires that emergently for uncontrollable bleeding. Current Visit: Yes Status: Acute Code(s): C54.9 - MALIGNANT NEOPLASM OF CORPUS UTERI, UNSPECIFIED SNOMED Code(s): 929010056
[2021-10-20 15:32] LABS: Anisocytosis Moderate; HCT 33.6 % (34.0-46.0); HGB 9.7 gm/dL (11.4-16.0); Hypochromasia Marked; MCH 25.4 pg (25.0-35.0); Mean Platelet Volume 7.6; Platelet Count 439 k/uL (150-450); Poikilocytosis Moderate; RBC 3.83 m/uL (3.80-5.40); RDW 21.4 % (11.5-15.5)
[2021-10-20 15:46] LABS: MCV 87.6 fL (80.0-100.0)
[2021-10-20 16:28] LABS: Glucose,Whole Blood 167 mg/dL (75-99)
[2021-10-20 20:40] LABS: Glucose,Whole Blood 203 mg/dL (75-99)
[2021-10-20] MEDS: INSULIN DETEMIR (LEVEMIR) 100 UNIT/ML SYR SQ SCH (20:43)
[2021-10-20] MEDS: GABAPENTIN 100 MG CAP PO SCH (20:43)
[2021-10-21] MEDS: HYDROcodone/APAP 5-325MG 1 EACH TAB PO PRN ×3 (04:04→16:03)
[2021-10-21] MEDS: LEVOTHYROXINE 100 MCG TAB PO SCH (05:26)
[2021-10-21 07:09] LABS: Glucose,Whole Blood 136 mg/dL (75-99)
[2021-10-21] MEDS: PANTOPRAZOLE 40 MG TABLET PO SCH (07:47)
[2021-10-21] MEDS: lisinopriL 20 MG TAB PO SCH (07:47)
[2021-10-21] MEDS: DOCUSATE 100 MG CAP PO SCH (07:48)
[2021-10-21] MEDS: carvediloL 12.5 MG TAB PO SCH ×2 (07:48→17:13)
[2021-10-21] MEDS: INSULIN ASPART (NovoLOG) 100 UNIT/ML VIAL SQ SCH ×4 (07:48→21:33)
[2021-10-21] MEDS: CHOLECALCIFEROL 25 MCG (1000 IU) TABLET PO SCH (07:48)
[2021-10-21 11:38] LABS: HGB 8.7 g/dL (12.0-15.0); MCH 23.9 pg (27.0-32.0); MCHC 27.2 g/dL (32.0-37.0); MCV 87.9 fL (80.0-97.0); Mean Platelet Volume 9.7 fL (9.5-12.2); Platelet Count 374 X 10*3/uL (140-440); RBC 3.64 X 10*6/uL (4.10-5.20); RDW 23.3 % (11.5-14.5); WBC 7.54 X 10*3/uL (4.50-10.00)
[2021-10-21 11:43] LABS: Glucose,Whole Blood 148 mg/dL (75-99)
[2021-10-21 16:38] LABS: Glucose,Whole Blood 188 mg/dL (75-99)
[2021-10-21 20:38] LABS: Glucose,Whole Blood 153 mg/dL (75-99)
[2021-10-21] MEDS ORDERED: diphenhydrAMINE 25 MG CAP PO PRN (21:21)
[2021-10-21] MEDS ORDERED: HYDROcodone/APAP 5-325MG 1 EACH TAB PO STA (21:22)
[2021-10-21] MEDS: GABAPENTIN 100 MG CAP PO SCH (21:33)
[2021-10-21] MEDS: INSULIN DETEMIR (LEVEMIR) 100 UNIT/ML SYR SQ SCH (21:34)
[2021-10-22] MEDS: HYDROcodone/APAP 5-325MG 1 EACH TAB PO PRN ×4 (05:15→23:45)
[2021-10-22] MEDS: LEVOTHYROXINE 100 MCG TAB PO SCH (05:15)
[2021-10-22 07:13] LABS: Glucose,Whole Blood 146 mg/dL (75-99)
[2021-10-22] MEDS: carvediloL 12.5 MG TAB PO SCH ×2 (08:10→18:29)
[2021-10-22] MEDS: CHOLECALCIFEROL 25 MCG (1000 IU) TABLET PO SCH (08:10)
[2021-10-22] MEDS: lisinopriL 20 MG TAB PO SCH (08:10)
[2021-10-22] MEDS: INSULIN ASPART (NovoLOG) 100 UNIT/ML VIAL SQ SCH ×4 (08:10→20:50)
[2021-10-22] MEDS: DOCUSATE 100 MG CAP PO SCH (08:10)
[2021-10-22 10:34] LABS: MCHC 27.3 g/dL (32.0-37.0); Mean Platelet Volume 9.6 fL (9.5-12.2); Platelet Count 375 X 10*3/uL (140-440); RBC 3.75 X 10*6/uL (4.10-5.20); RDW 23.2 % (11.5-14.5); WBC 7.36 X 10*3/uL (4.50-10.00)
[2021-10-22 11:14] LABS: Glucose,Whole Blood 160 mg/dL (75-99)
[2021-10-22 11:21] LABS: Anisocytosis (M) 2+; Basophils # (A) 0.09 X 10*3/uL (0.00-0.10); Basophils % (A) 1.2 %; Eosinophils # (A) 0.35 X 10*3/uL (0.04-0.35); Eosinophils % (A) 4.8 %; Lymphocytes # (A) 0.96 X 10*3/uL (0.90-5.00); Monocytes # (A) 0.76 X 10*3/uL (0.20-1.00); Monocytes % (A) 10.3 %; Neutrophils # (A) 5.16 X 10*3/uL (1.80-7.70); Neutrophils % (A) 70.2 %
--- NOTE | 2021-10-22 12:59 | P.PN ---
Subjective Progress Note Date: 10/22/21 Patient continues to have small amount of bleeding mostly at the time of straining but not otherwise. She denies any fever/chills/nausea/vomiting. No new abdominal pain. Objective - Vital Signs Vital signs: Vital Signs Temp 98.3 F 10/22/21 07:38 Pulse 90 10/22/21 07:38 Resp 18 10/22/21 07:38 BP 148/75 10/22/21 07:38 Pulse Ox 98 10/22/21 07:38 Intake & Output 10/21/21 10/22/21 10/22/21 18:59 06:59 18:59 Other: Voiding Method Toilet Toilet Toilet # Voids 3 - Constitutional General appearance: Present: no acute distress - Respiratory Respiratory: bilateral: CTA - Cardiovascular Rhythm: regular Heart sounds: normal: S1, S2 - Gastrointestinal General gastrointestinal: Present: normal bowel sounds, soft - Integumentary Integumentary: Present: normal - Neurologic Neurologic: Present: CNII-XII intact - Musculoskeletal Musculoskeletal: Present: generalized weakness, strength equal bilaterally - Psychiatric Psychiatric: Present: A&O x's 3, appropriate affect - Labs CBC & Chem 7: 10/22/21 05:20 10/19/21 05:14 Labs: Abnormal Lab Results - Last 24 Hours (Table) 10/15/21 10/21/21 10/21/21 Range/Units 09:59 16:37 20:35 RBC (4.10-5.20) X 10*6/uL Hgb (12.0-15.0) g/dL Hct (37.2-46.3) % MCH (27.0-32.0) pg MCHC (32.0-37.0) g/dL RDW (11.5-14.5) % POC Glucose (mg/dL) 188 H 153 H (75-99) mg/dL Crossmatch See Detail 10/22/21 10/22/21 10/22/21 Range/Units 05:20 07:09 11:13 RBC 3.75 L (4.10-5.20) X 10*6/uL Hgb 9.0 L (12.0-15.0) g/dL Hct 33.0 L (37.2-46.3) % MCH 24.0 L (27.0-32.0) pg MCHC 27.3 L (32.0-37.0) g/dL RDW 23.2 H (11.5-14.5) % POC Glucose (mg/dL) 146 H 160 H (75-99) mg/dL Crossmatch Assessment and Plan (1) Anemia Narrative/Plan: Hemoglobin has been mostly stable without need for transfusion since about 10/15/21. At this time the patient is having small amounts of vaginal bleeding mostly on straining. She is status post IV iron. Hemoglobin was in the 9 range today. Continue to monitor and transfuse to keep greater than 7. Current Visit: Yes Status: Acute Code(s): D64.9 - ANEMIA, UNSPECIFIED SNOMED Code(s): 750542233 (2) Carcinosarcoma of body of uterus Narrative/Plan: Awaiting transfer to tertiary facility for surgical evaluation. Current Visit: Yes Status: Acute Code(s): C54.9 - MALIGNANT NEOPLASM OF CORPUS UTERI, UNSPECIFIED SNOMED Code(s): 047402736
[2021-10-22 16:29] LABS: Glucose,Whole Blood 151 mg/dL (75-99)
--- NOTE | 2021-10-22 19:58 | P.PN ---
Subjective Progress Note Date: 10/20/21 Principal diagnosis: Vaginal bleeding Cervical mass; carcinosarcoma; final pathology report is pending Symptomatic anemia/acute blood loss Paroxysmal atrial fibrillation Leukocytosis possibly reactive 61-year 0ld pleasant female came in with complains of vaginal bleeding is been going on for last couple days multiple episodes of bleeding with clots. Patient last menstrual cycle was many years ago. Patient is on Coumadin for atrial fibrillation patient INR is 3.7 on admission. Patient denied any symptoms of dysuria on admission but now she has some discomfort with his the [place] cath patient urine is bit abnormal that's because of the vaginal bleeding no fever no chills. Patient is found to have hemoglobin of 5.4 after transfusion of 2 units of PRBC, her present hemoglobin is 7.4. Patient was evaluated by ASSOCIATE MANAGER AFFILIATE MARKETING services and patient will undergo dilatation and curettage tomorrow. 10/18/2021 Patient is seen and evaluated sitting up in bedside chair; feels anxious about pending biopsy results Vital signs are reviewed and remained stable; lab review shows to be BC 8.08, hemoglobin 7.9, sodium 132, potassium 3.9, BUN/creatinine of 11/0.9 Preliminary pathology reveals carcinosarcoma; CT of the abdomen and pelvis is completed and does not reveal any metastatic disease Bone scan is completed. No suspicious increased radiotracer uptake to suggest metastatic disease to the bone Patient awaits transfer to [facility] for further evaluation and treatment 10/19/2021 Patient is seen and evaluated sitting up in bed; denies any specific complaints; reports less vaginal bleeding in the past 24 hours Vital signs are stable temperature 98.4, pulse 61, respirations 16 and blood pressure 152/55 Lab review reveals hemoglobin of 8.0; patient is status post transfusion with 5 units of packed RBCs since admission; has been treated with vitamin K, Sandostatin and DDAVP; bleeding slowed down significantly 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 Pending transfer to [facility] for surgical evaluation and intervention. Radiation Oncology has been following in case urgent need for intervention. F/U after surgery. 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 for carcinosarcoma; metastatic workup has been negative in form of CT of abdomen and pelvis, CT of chest and bone scan which did not reveal any metastatic disease Radiation oncology on board for emergent control of bleeding; patient is on the waiting list for transfer to [facility] for further evaluation and treatment with gynecological oncology Objective - Vital Signs Vital signs: Vital Signs Temp 98.7 F 10/20/21 14:00 Pulse 18 L 10/20/21 14:00 Resp 17 10/20/21 14:00 BP 153/78 10/20/21 14:00 Pulse Ox 98 10/20/21 14:00 Intake & Output 10/19/21 10/20/21 10/20/21 18:59 06:59 18:59 Intake Total 1200 Balance 1200 Intake: Oral 1200 Other: Voiding Method Toilet Toilet Toilet # Voids 4 4 - Exam GENERAL: The patient is alert and oriented x3, not in any acute distress. Well developed, well nourished. Obese. HEENT: Pupils are round and equally reacting to light. EOMI. No scleral icterus. Does have conjunctival pallor. Normocephalic, atraumatic. No pharyngeal erythema. No thyromegaly. CARDIOVASCULAR: S1 and S2 present. No murmurs, rubs, or gallops. PULMONARY: Chest is clear to auscultation, no wheezing or crackles. ABDOMEN: Soft, nontender, nondistended, normoactive bowel sounds. No palpable organomegaly. NO CVA tenderness MUSCULOSKELETAL: No joint swelling or deformity. EXTREMITIES: No cyanosis, clubbing, or pedal edema. NEUROLOGICAL: Gross neurological examination did not reveal any focal deficits. SKIN: No rashes. - Labs CBC & Chem 7: 10/22/21 05:20 10/19/21 05:14 Labs: Abnormal Lab Results - Last 24 Hours (Table) 10/19/21 10/19/21 10/20/21 Range/Units 16:04 20:12 06:50 POC Glucose (mg/dL) 156 H 190 H 143 H (75-99) mg/dL 10/20/21 Range/Units 11:24 POC Glucose (mg/dL) 159 H (75-99) mg/dL Assessment and Plan Assessment: -Vaginal bleeding secondary to cervical mass obstructing cervix, pathology pending -Symptomatic anemia due to acute blood loss from vaginal bleeding, hgb today 8.6 s/p 5 units total PRBCs -Leukocytosis, probably reactive, resolved -Paroxysmal atrial fibrillation coumadin on hold, sinus rhythm currently -Coagulopathy, INR 1.1 -Type 2 diabetes mellitus, metformin O/H continue with novolog -Gastroesophageal reflux disease -Hypertension -Hypothyroidism -Low level Vitamin D DVT prophylaxis: No pharmacological anticoagulation because of her active bleeding GI Prophylaxis: Protonix FULL CODE Plan Transfuse for hgb <7 Repeat labs in AM Continue with telemetry monitoring Pathology pending Pending bed at [facility] IV iron infusions Start Drisdol weekly for 1 month Start Vitamin D3 2000 IU daily Increase levemir for hyperglycemia
--- NOTE | 2021-10-22 20:06 | P.PN ---
Subjective Progress Note Date: 10/21/21 Principal diagnosis: Vaginal bleeding Cervical mass; carcinosarcoma; final pathology report is pending Symptomatic anemia/acute blood loss Paroxysmal atrial fibrillation Leukocytosis possibly reactive 61-year 0ld pleasant female came in with complains of vaginal bleeding is been going on for last couple days multiple episodes of bleeding with clots. Patient last menstrual cycle was many years ago. Patient is on Coumadin for atrial fibrillation patient INR is 3.7 on admission. Patient denied any symptoms of dysuria on admission but now she has some discomfort with his the [place] cath patient urine is bit abnormal that's because of the vaginal bleeding no fever no chills. Patient is found to have hemoglobin of 5.4 after transfusion of 2 units of PRBC, her present hemoglobin is 7.4. Patient was evaluated by DIE CUTTER services and patient will undergo dilatation and curettage tomorrow. 10/18/2021 Patient is seen and evaluated sitting up in bedside chair; feels anxious about pending biopsy results Vital signs are reviewed and remained stable; lab review shows to be BC 8.08, hemoglobin 7.9, sodium 132, potassium 3.9, BUN/creatinine of 11/0.9 Preliminary pathology reveals carcinosarcoma; CT of the abdomen and pelvis is completed and does not reveal any metastatic disease Bone scan is completed. No suspicious increased radiotracer uptake to suggest metastatic disease to the bone Patient awaits transfer to [facility] for further evaluation and treatment 10/19/2021 Patient is seen and evaluated sitting up in bed; denies any specific complaints; reports less vaginal bleeding in the past 24 hours Vital signs are stable temperature 98.4, pulse 61, respirations 16 and blood pressure 152/55 Lab review reveals hemoglobin of 8.0; patient is status post transfusion with 5 units of packed RBCs since admission; has been treated with vitamin K, Sandostatin and DDAVP; bleeding slowed down significantly 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 Pending transfer to [facility] for surgical evaluation and intervention. Radiation Oncology has been following in case urgent need for intervention. F/U after surgery. 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 for carcinosarcoma; metastatic workup has been negative in form of CT of abdomen and pelvis, CT of chest and bone scan which did not reveal any metastatic disease Radiation oncology on board for emergent control of bleeding; patient is on the waiting list for transfer to [facility] for further evaluation and treatment with gynecological oncology 10/21/2021 Patient is evaluated sitting up in bed; reports increased bleeding since last night after she had to strain during a bowel movement Vital signs are reviewed and stable Laboratory review reveals WBC 7.54, hemoglobin 8.7 which is a drop of 1 g from yesterday of 9.7 Patient awaits transfer to tertiary facility for gynecological oncology evaluation which has been delayed due to bed availability; oncology on board and feel it to be most appropriate for patient to be transferred directly to the tertiary center rather than be discharged with outpatient follow-up Objective - Vital Signs Vital signs: Vital Signs Temp 97.7 F 10/21/21 14:00 Pulse 67 10/21/21 14:00 Resp 18 10/21/21 14:00 BP 137/47 10/21/21 14:00 Pulse Ox 98 10/21/21 14:00 Intake & Output 10/20/21 10/21/21 10/21/21 18:59 06:59 18:59 Other: Voiding Method Toilet Toilet Toilet # Voids 3 2 - Exam GENERAL: The patient is alert and oriented x3, not in any acute distress. Well developed, well nourished. Obese. HEENT: Pupils are round and equally reacting to light. EOMI. No scleral icterus. Does have conjunctival pallor. Normocephalic, atraumatic. No pharyngeal erythema. No thyromegaly. CARDIOVASCULAR: S1 and S2 present. No murmurs, rubs, or gallops. PULMONARY: Chest is clear to auscultation, no wheezing or crackles. ABDOMEN: Soft, nontender, nondistended, normoactive bowel sounds. No palpable organomegaly. NO CVA tenderness MUSCULOSKELETAL: No joint swelling or deformity. EXTREMITIES: No cyanosis, clubbing, or pedal edema. NEUROLOGICAL: Gross neurological examination did not reveal any focal deficits. SKIN: No rashes. - Labs CBC & Chem 7: 10/22/21 05:20 10/19/21 05:14 Labs: Abnormal Lab Results - Last 24 Hours (Table) 10/20/21 10/21/21 10/21/21 Range/Units 20:38 06:53 07:07 RBC 3.64 L (4.10-5.20) X 10*6/uL Hgb 8.7 L (12.0-15.0) g/dL Hct 32.0 L (37.2-46.3) % MCH 23.9 L (27.0-32.0) pg MCHC 27.2 L (32.0-37.0) g/dL RDW 23.3 H (11.5-14.5) % POC Glucose (mg/dL) 203 H 136 H (75-99) mg/dL 10/21/21 10/21/21 Range/Units 11:41 16:37 RBC (4.10-5.20) X 10*6/uL Hgb (12.0-15.0) g/dL Hct (37.2-46.3) % MCH (27.0-32.0) pg MCHC (32.0-37.0) g/dL RDW (11.5-14.5) % POC Glucose (mg/dL) 148 H 188 H (75-99) mg/dL Assessment and Plan Assessment: -Vaginal bleeding secondary to cervical mass obstructing cervix, pathology pending -Symptomatic anemia due to acute blood loss from vaginal bleeding, hgb today 8.6 s/p 5 units total PRBCs -Leukocytosis, probably reactive, resolved -Paroxysmal atrial fibrillation coumadin on hold, sinus rhythm currently -Coagulopathy, INR 1.1 -Type 2 diabetes mellitus, metformin O/H continue with novolog -Gastroesophageal reflux disease -Hypertension -Hypothyroidism -Low level Vitamin D DVT prophylaxis: No pharmacological anticoagulation because of her active bleeding GI Prophylaxis: Protonix FULL CODE Plan Transfuse for hgb <7 Repeat labs in AM Continue with telemetry monitoring Pathology pending Pending bed at [facility] IV iron infusions Start Drisdol weekly for 1 month Start Vitamin D3 2000 IU daily Increase levemir for hyperglycemia
--- NOTE | 2021-10-22 20:13 | P.PN ---
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 Patient last menstrual cycle was many years ago. Patient is on Coumadin for atrial fibrillation patient INR is 3.7 on admission. Patient denied any symptoms of dysuria on admission but now she has some discomfort with his the [place] cath patient urine is bit abnormal that's because of the vaginal bleeding no fever no chills. Patient is found to have hemoglobin of 5.4 after transfusion of 2 units of PRBC, her present hemoglobin is 7.4. Patient was evaluated by [employer] services and patient will undergo dilatation and curettage tomorrow. 10/18/2021 Patient is seen and evaluated sitting up in bedside chair; feels anxious about pending biopsy results Vital signs are reviewed and remained stable; lab review shows to be BC 8.08, hemoglobin 7.9, sodium 132, potassium 3.9, BUN/creatinine of 11/0.9 Preliminary pathology reveals carcinosarcoma; CT of the abdomen and pelvis is completed and does not reveal any metastatic disease Bone scan is completed. No suspicious increased radiotracer uptake to suggest metastatic disease to the bone Patient awaits transfer to [facility] for further evaluation and treatment 10/19/2021 Patient is seen and evaluated sitting up in bed; denies any specific complaints; reports less vaginal bleeding in the past 24 hours Vital signs are stable temperature 98.4, pulse 61, respirations 16 and blood pressure 152/55 Lab review reveals hemoglobin of 8.0; patient is status post transfusion with 5 units of packed RBCs since admission; has been treated with vitamin K, Sandostatin and DDAVP; bleeding slowed down significantly 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 Pending transfer to [facility] for surgical evaluation and intervention. Radiation Oncology has been following in case urgent need for intervention. F/U after surgery. 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 for carcinosarcoma; metastatic workup has been negative in form of CT of abdomen and pelvis, CT of chest and bone scan which did not reveal any metastatic disease Radiation oncology on board for emergent control of bleeding; patient is on the waiting list for transfer to [facility] for further evaluation and treatment with gynecological oncology 10/21/2021 Patient is evaluated sitting up in bed; reports increased bleeding since last night after she had to strain during a bowel movement Vital signs are reviewed and stable Laboratory review reveals WBC 7.54, hemoglobin 8.7 which is a drop of 1 g from yesterday of 9.7 Patient awaits transfer to tertiary facility for gynecological oncology evaluation which has been delayed due to bed availability; oncology on board and feel it to be most appropriate for patient to be transferred directly to the tertiary center rather than be discharged with outpatient follow-up 10/22/2021 Patient is seen and evaluated at bedside; reports some bleeding or any with straining; no bleeding otherwise Vital signs are stable with temperature of 98.3, pulse 90, respiration 18 and blood pressure 148/75 and O2 saturation of 98% Labs reveal a stable hemoglobin of 9.0, hematocrit 33; no further need for t ransfusion at this time; patient has received IV iron infusion Hematology/oncology on board and recommending transfusion or if hemoglobin is less than 7.0 Awaits transfer to tertiary center for further evaluation Objective - Vital Signs Vital signs: Vital Signs Temp 97.9 F 10/22/21 13:52 Pulse 56 L 10/22/21 13:52 Resp 16 10/22/21 13:52 BP 99/55 10/22/21 13:52 Pulse Ox 99 10/22/21 13:52 Intake & Output 10/22/21 10/22/21 10/23/21 06:59 18:59 06:59 Intake Total 1080 Balance 1080 Intake: Oral 1080 Other: Voiding Method Toilet Toilet # Voids 3 3 - Exam GENERAL: The patient is alert and oriented x3, not in any acute distress. Well d eveloped, well nourished. Obese. HEENT: Pupils are round and equally reacting to light. EOMI. No scleral icterus. Does have conjunctival pallor. Normocephalic, atraumatic. No pharyngeal erythema. No thyromegaly. CARDIOVASCULAR: S1 and S2 present. No murmurs, rubs, or gallops. PULMONARY: Chest is clear to auscultation, no wheezing or crackles. ABDOMEN: Soft, nontender, nondistended, normoactive bowel sounds. No palpable organomegaly. NO CVA tenderness MUSCULOSKELETAL: No joint swelling or deformity. EXTREMITIES: No cyanosis, clubbing, or pedal edema. NEUROLOGICAL: Gross neurological examination did not reveal any focal deficits. SKIN: No rashes. - Labs CBC & Chem 7: 10/22/21 05:20 10/19/21 05:14 Labs: Abnormal Lab Results - Last 24 Hours (Table) 10/15/21 10/21/21 10/22/21 Range/Units 09:59 20:35 05:20 RBC 3.75 L (4.10-5.20) X 10*6/uL Hgb 9.0 L (12.0-15.0) g/dL Hct 33.0 L (37.2-46.3) % MCH 24.0 L (27.0-32.0) pg MCHC 27.3 L (32.0-37.0) g/dL RDW 23.2 H (11.5-14.5) % POC Glucose (mg/dL) 153 H (75-99) mg/dL Crossmatch See Detail 10/22/21 10/22/21 10/22/21 Range/Units 07:09 11:13 16:27 RBC (4.10-5.20) X 10*6/uL Hgb (12.0-15.0) g/dL Hct (37.2-46.3) % MCH (27.0-32.0) pg MCHC (32.0-37.0) g/dL RDW (11.5-14.5) % POC Glucose (mg/dL) 146 H 160 H 151 H (75-99) mg/dL Crossmatch Assessment and Plan Assessment: -Vaginal bleeding secondary to cervical mass obstructing cervix, pathology pending -Symptomatic anemia due to acute blood loss from vaginal bleeding, hgb today 8.6 s/p 5 units total PRBCs -Leukocytosis, probably reactive, resolved -Paroxysmal atrial fibrillation coumadin on hold, sinus rhythm currently -Coagulopathy, INR 1.1 -Type 2 diabetes mellitus, metformin O/H continue with novolog -Gastroesophageal reflux disease -Hypertension -Hypothyroidism -Low level Vitamin D DVT prophylaxis: No pharmacological anticoagulation because of her active bleeding GI Prophylaxis: Protonix FULL CODE Plan Transfuse for hgb <7 Repeat labs in AM Continue with telemetry monitoring Pathology pending Pending bed at [facility] IV iron infusions Start Drisdol weekly for 1 month Start Vitamin D3 2000 IU daily Increase levemir for hyperglycemia
[2021-10-22] MEDS: GABAPENTIN 100 MG CAP PO SCH (20:49)
[2021-10-22] MEDS: INSULIN DETEMIR (LEVEMIR) 100 UNIT/ML SYR SQ SCH (20:49)
[2021-10-22 20:50] LABS: Glucose,Whole Blood 169 mg/dL (75-99)
[2021-10-23] MEDS: HYDROcodone/APAP 5-325MG 1 EACH TAB PO PRN ×3 (06:15→17:22)
[2021-10-23] MEDS: LEVOTHYROXINE 100 MCG TAB PO SCH (06:15)
[2021-10-23 06:54] LABS: Glucose,Whole Blood 136 mg/dL (75-99)
[2021-10-23 08:04] VITALS: RESP 18
[2021-10-23] MEDS: INSULIN ASPART (NovoLOG) 100 UNIT/ML VIAL SQ SCH ×3 (08:58→17:23)
[2021-10-23] MEDS: PANTOPRAZOLE 40 MG TABLET PO SCH (08:59)
[2021-10-23] MEDS: DOCUSATE 100 MG CAP PO SCH (08:59)
[2021-10-23] MEDS: CHOLECALCIFEROL 25 MCG (1000 IU) TABLET PO SCH (08:59)
[2021-10-23] MEDS: carvediloL 12.5 MG TAB PO SCH ×2 (08:59→17:23)
[2021-10-23] MEDS: lisinopriL 20 MG TAB PO SCH (09:00)
[2021-10-23] MEDS: MORPHINE SULFATE 2 MG/ML SYRINGE IVP PRN (09:51)
[2021-10-23 10:52] LABS: Anisocytosis Moderate; Basophils # (A) 0.1 k/uL (0-0.2); Basophils % (A) 1 %; Eosinophils # (A) 0.3 k/uL (0-0.7); Eosinophils % (A) 4 %; HCT 32.8 % (34.0-46.0); HGB 9.6 gm/dL (11.4-16.0); Hypochromasia Marked; Lymphocytes # (A) 0.8 k/uL (1.0-4.8); Lymphocytes % (A) 12 %; MCH 25.7 pg (25.0-35.0); MCHC 29.4 g/dL (31.0-37.0); MCV 87.4 fL (80.0-100.0); Mean Platelet Volume 7.3; Monocytes # (A) 0.5 k/uL (0-1.0); Monocytes % (A) 8 %; Neutrophils # (A) 4.9 k/uL (1.3-7.7); Neutrophils % (A) 73 %; Platelet Count 387 k/uL (150-450); Poikilocytosis Moderate; RBC 3.75 m/uL (3.80-5.40); RDW 21.1 % (11.5-15.5); WBC 6.8 k/uL (3.8-10.6)
[2021-10-23 11:25] LABS: African American GFR (CKD) 65 (>60 ml/min/1.73 sqM); Anion Gap 7 mmol/L; Blood Urea Nitrogen 10 mg/dL (7-17); Calcium 9.3 mg/dL (8.4-10.2); Carbon Dioxide 29 mmol/L (22-30); Chloride 100 mmol/L (98-107); Glucose 187 mg/dL (74-99); Non-African American GFR(CKD) 56 (>60 ml/min/1.73 sqM); Potassium 4.5 mmol/L (3.5-5.1); Sodium 136 mmol/L (137-145)
[2021-10-23 11:28] LABS: Glucose,Whole Blood 193 mg/dL (75-99)
[2021-10-23 14:36] VITALS: BP 116/63; PULSE 63; TEMP 98.2
[2021-10-23 16:53] LABS: Glucose,Whole Blood 147 mg/dL (75-99)
--- NOTE | 2021-10-23 19:12 | P.PN ---
Subjective Progress Note Date: 10/23/21 Principal diagnosis: Vaginal hemorrhage In f/u pt states only a small amt of vaginal bleeding, only with bearing down for BM. Some lower abd pain at times, nothing persistent. She has received 5 doses of parenteral iron and 5 units of blood. Objective - Vital Signs Vital signs: Vital Signs Temp 98.2 F 10/23/21 14:00 Pulse 63 10/23/21 14:00 Resp 18 10/23/21 14:00 BP 116/63 10/23/21 14:00 Pulse Ox 98 10/23/21 14:00 Intake & Output 10/23/21 10/23/21 10/24/21 06:59 18:59 06:59 Intake Total 1000 Balance 1000 Intake: Oral 1000 Other: # Voids 3 3 - Constitutional General appearance: Present: cooperative, morbidly obese, no acute distress - EENT Eyes: Present: anicteric sclerae, EOMI ENT: Present: hearing grossly normal - Respiratory Respiratory: bilateral: CTA - Cardiovascular Heart sounds: normal: S1, S2 - Peripheral edema leg Peripheral Edema: bilateral: 1+ (venous insufficiency, bronzed skin, no weeping) - Neurologic Neurologic: Present: CNII-XII intact - Psychiatric Psychiatric: Present: A&O x's 3, appropriate affect, intact judgment & insight - Labs CBC & Chem 7: 10/23/21 10:19 10/23/21 10:19 Labs: Abnormal Lab Results - Last 24 Hours (Table) 10/22/21 10/23/21 10/23/21 Range/Units 20:48 06:52 10:19 RBC 3.75 L (3.80-5.40) m/uL Hgb 9.6 L (11.4-16.0) gm/dL Hct 32.8 L (34.0-46.0) % MCHC 29.4 L (31.0-37.0) g/dL RDW 21.1 H (11.5-15.5) % Lymphocytes # 0.8 L (1.0-4.8) k/uL Sodium (137-145) mmol/L Creatinine (0.52-1.04) mg/dL Glucose (74-99) mg/dL POC Glucose (mg/dL) 169 H 136 H (75-99) mg/dL 12/10/23/21 10/23/21 Range/Units 10:19 11:26 16:51 RBC (3.80-5.40) m/uL Hgb (11.4-16.0) gm/dL Hct (34.0-46.0) % MCHC (31.0-37.0) g/dL RDW (11.5-15.5) % Lymphocytes # (1.0-4.8) k/uL Sodium 136 L (137-145) mmol/L Creatinine 1.07 H (0.52-1.04) mg/dL Glucose 187 H (74-99) mg/dL POC Glucose (mg/dL) 193 H 147 H (75-99) mg/dL Assessment and Plan (1) Microcytic hypochromic anemia Narrative/Plan: 2/2 acute on chronic blood losses from malignancy. Pt is s/p 5 units PRBCs, she received 5 doses of parenteral iron, vaginal bleeding significantly slowed Status: Acute Priority: High Code(s): D50.9 - IRON DEFICIENCY ANEMIA, UNSPECIFIED SNOMED Code(s): 36037983 (2) Coagulopathy Narrative/Plan: S/P vitamin K, sandostatin, DDAVP. Bleeding has slowed but persists. INR is now WNL, coumadin has been held for vaginal bleeding. 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 Radiation Oncology has been following in case urgent need for intervention. F/U after surgery planned. Case discussed with Dr. Miramnotes and Insurance Loss Adjuster Onc Dr. Dixon. Appt with Dr. Dixon at [facility] in [place] 10/30, pending time
--- NOTE | 2021-10-24 09:05 | P.DS ---
Providers Date of admission: 10/12/21 08:09 Expected date of discharge: 10/23/21 Attending physician: Glen uDncan MD Consults: 10/10/21 03:52 Consult Physician Stat Consulting Provider: Shaun Ken Consult Reason/Comments: Vaginal bleeding; anemia Do you want consulting provider notified?: Already Contacted 10/10/21 03:55 Consult Physician Routine Consulting Provider: Aaron Fountain Consult Reason/Comments: Anemia Do you want consulting provider notified?: Yes 10/15/21 09:44 Consult Physician Urgent Consulting Provider: Stephan Shoemaker Consult Reason/Comments: persistent vavinal bleeding malignancy Do you want consulting provider notified?: Yes Primary care physician: CASSANDRA MONTANO, DO Hospital Course: Final diagnosis -Vaginal bleeding secondary to cervical mass obstructing cervix, pathology consistent with high-grade carcinosarcoma -Symptomatic anemia due to acute blood loss from vaginal bleeding, hgb today 9.6 s/p 5 units total PRBCs ring admission -Leukocytosis, probably reactive, resolved -Paroxysmal atrial fibrillation coumadin on hold, sinus rhythm currently -Coagulopathy -Type 2 diabetes mellitus -Gastroesophageal reflux disease -Hypertension -Hypothyroidism -Low level Vitamin D -DVT prophylaxis -GI Prophylaxis -FULL CODE Discharge disposition Patient is being discharged in a stable condition with guarded prognosis to home. Patient will follow-up with Dr.Aaron Montano in the outpatient setting upon discharge. Patient is to follow-up with oncology Dr. hidalgo along with Dr. Dixon out of [facility] as scheduled this week in the outpatient setting. Patient is to continue holding Coumadin until follow-up and monitor closely for any worsening signs of bleeding. Prescription was provided for repeat labs in 2-3 days to monitor hemoglobin along with kidney functions and electrolytes. Total time taken is greater than 35 minutes. Hospital course This is an 61-year-old female who was recently admitted with vaginal bleeding that been going on for the last few days with multiple episodes of bleeding and clots and was evaluated by gynecology recommending ER admission for further evaluation. Patient does take Coumadin for atrial fibrillation and was mildly coagulopathic on admission. Gynecology evaluated the patient along with oncology. Patient was scheduled for transfer to [facility] and accepted although no beds available on a daily basis. Patient is stable and hemoglobin is stable at 9.6 with only mild occasional scant amount of blood noted when straining with bowel movements. Will continue on lactulose along with Senokot as patient often has issues with constipation. Patient denies any further abdominal pain. Discussed at length with the patient about being compliant with follow-up appointments in gynecology oncology out of [facility] and an appointment has been made and patient will also follow-up with oncology services Dr. Fountain in November. Discussed the importance of monitoring for any further signs of bleeding or worsening symptoms and calling 911 reporting to the nearest ER if such events occur. Patient verbalized understanding. Currently no reports of chest pain, shortness of breath, or palpitations. Patient is afebrile. No reports of nausea or vomiting and patient is tolerating diet. Patient will be discharged home today. Guarded prognosis. Physical Exam: GENERAL: The patient is alert and oriented x3, morbidly obese. HEENT: Pupils are round and equally reacting to light. EOMI. No scleral icterus. No conjunctival pallor. Normocephalic, atraumatic. No pharyngeal erythema. No thyromegaly. CARDIOVASCULAR: S1 and S2 muffled PULMONARY: Diminished breath sounds bilaterally with no wheezing or rhonchi noted ABDOMEN: Soft, obese, nontender, nondistended, normoactive bowel sounds. No palpable organomegaly. MUSCULOSKELETAL: No joint swelling or deformity. EXTREMITIES: No cyanosis, clubbing, or pedal edema. NEUROLOGICAL: Gross neurological examination did not reveal any focal deficits. SKIN: No lesions Please refer to medication reconciliation sheet for a list of medications. Patient Condition at Discharge: Fair Plan - Discharge Summary Discharge Rx Participant: Yes New Discharge Prescriptions: New Docusate [Colace] 100 mg PO DAILY 30 Days #30 cap HYDROcodone/APAP 7.5-325MG [[place] 7.5-325] 1 tab PO Q6HR PRN 3 Days #12 tab PRN Reason: Pain diphenhydrAMINE [Benadryl] 25 mg PO TID PRN #20 cap PRN Reason: Itching carvediloL [Coreg*] 12.5 mg PO BID-W/MEALS 30 Days #60 tab Ergocalciferol [Vitamin D2 (1250 Mcg = 92483 Iu)] 1,250 mcg PO Q7D 30 Days #4 capsule Cholecalciferol [Vitamin D3 (25 Mcg = 1000 Iu)] 50 mcg PO DAILY 30 Days #60 tablet lisinopriL [Zestril] 20 mg PO DAILY 30 Days #30 tab Lactulose 20 gm PO BID PRN #120 ml PRN Reason: Constipation Sennosides [Senokot] 8.6 mg PO BID 30 Days #60 tablet Continue Nystatin 100,000Unit/gm Cream [Mycostatin Cream] 1 applic TOPICAL BID PRN PRN Reason: Rash Omeprazole 20 mg PO Q48H Nitroglycerin Sl Tabs [Nitrostat] 0.4 mg SL Q5M PRN PRN Reason: Chest Pain metFORMIN HCL 500 mg PO AC-TID Levothyroxine Sodium 200 mcg PO DAILY Gabapentin [Neurontin] 100 mg PO HS Discontinued Carvedilol [Coreg] 25 mg PO BID Warfarin [Coumadin] 3 mg PO HS Discharge Medication List Gabapentin [Neurontin] 100 mg PO HS 10/10/21 [History] Levothyroxine Sodium 200 mcg PO DAILY 10/10/21 [History] Nitroglycerin Sl Tabs [Nitrostat] 0.4 mg SL Q5M PRN 10/10/21 [History] Nystatin 100,000Unit/gm Cream [Mycostatin Cream] 1 applic TOPICAL BID PRN 10/10/21 [History] Omeprazole 20 mg PO Q48H 10/10/21 [History] metFORMIN HCL 500 mg PO AC-TID 10/10/21 [History] Cholecalciferol [Vitamin D3 (25 Mcg = 1000 Iu)] 50 mcg PO DAILY 30 Days #60 tablet 10/23/21 [Rx] Docusate [Colace] 100 mg PO DAILY 30 Days #30 cap 10/23/21 [Rx] Ergocalciferol [Vitamin D2 (1250 Mcg = 66175 Iu)] 1,250 mcg PO Q7D 30 Days #4 capsule 10/23/21 [Rx] HYDROcodone/APAP 7.5-325MG [[place] 7.5-325] 1 tab PO Q6HR PRN 3 Days #12 tab 10/23/21 [Rx] Lactulose 20 gm PO BID PRN #120 ml 10/23/21 [Rx] Sennosides [Senokot] 8.6 mg PO BID 30 Days #60 tablet 10/23/21 [Rx] carvediloL [Coreg*] 12.5 mg PO BID-W/MEALS 30 Days #60 tab 10/23/21 [Rx] diphenhydrAMINE [Benadryl] 25 mg PO TID PRN #20 cap 10/23/21 [Rx] lisinopriL [Zestril] 20 mg PO DAILY 30 Days #30 tab 10/23/21 [Rx] Follow up Appointment(s)/Referral(s): CASSANDRA MONTANO DO [Primary Care Provider] - 1-2 days Aaron Fountain MD [STAFF PHYSICIAN] - 11/30/21 10:15 am Donald Dixon MD [STAFF PHYSICIAN] - 10/30/21 (Pending time. This appt is at [facility] in [place] ) Ambulatory/Diagnostic Orders: Complete Blood Count w/diff [LAB.AMB] Time Frame: 2 Days, Location: None Selected Patient Instructions/Handouts: Uterine Cancer (DC) Activity/Diet/Wound Care/Special Instructions: Pain medications sent to [facility] here @ [facility] Activity [facility] until follow-up Follow-up with [facility] gynecology oncology is discussed and scheduled Dr Donald Dixon [phone] will be calling to schedule appointment end of week if you do not hear from office by Saturday call number to inquire of appointment time and day. Follow-up oncology in the outpatient setting Follow-up primary care provider Continue to hold Coumadin until follow-up with gynecology/ oncology Continue taking medications as prescribed Repeat labs in 2-3 days to monitor hemoglobin and kidney functions Call 911 or report to nearest ER if having any worsening signs and symptoms of bleeding or becoming more symptomatic Discharge Disposition: HOME SELF-CARE
== END 2021-10-23 18:58 | disposition home or self-care (01) | DRG 744 ==
LOC: EC 23:21 → SUPCPDRO 23:21 → 3SCARD 10-10 04:29 → UNDOADMIN 10-10 04:29 → 3SCARD 10-10 04:29 → 1SOBS 10-10 20:31 → 4SSUR 10-11 15:22 → OBSVTOIN 10-12 08:09 → 4SSUR 10-15 02:38
PROVIDERS: ADMIT Internal Medicine; ATTEND Internal Medicine
PROC: 30233N1 Transfusion of Nonautologous Red Blood Cells into Peripheral Vein, Percutaneous Approach (ICD-10-PCS; 2021-10-10)
PROC: 8E0UXY7 Examination of Female Reproductive System (ICD-10-PCS; 2021-10-11)
PROC: 0UBC7ZX Excision of Cervix, Via Natural or Artificial Opening, Diagnostic (ICD-10-PCS; principal; 2021-10-11 09:15)
DX: C53.9 Malignant neoplasm of cervix uteri, unspecified (principal); D62 Acute posthemorrhagic anemia; D68.9 Coagulation defect, unspecified; N95.0 Postmenopausal bleeding; Z20.822 Contact with and (suspected) exposure to COVID-19; D53.9 Nutritional anemia, unspecified; E03.9 Hypothyroidism, unspecified; E11.9 Type 2 diabetes mellitus without complications; I11.9 Hypertensive heart disease without heart failure; I48.0 Paroxysmal atrial fibrillation; K21.9 Gastro-esophageal reflux disease without esophagitis; K59.00 Constipation, unspecified; N30.91 Cystitis, unspecified with hematuria; N89.9 Noninflammatory disorder of vagina, unspecified; Z79.01 Long term (current) use of anticoagulants; Z79.84 Long term (current) use of oral hypoglycemic drugs; Z79.890 Hormone replacement therapy; Z79.899 Other long term (current) drug therapy; Z80.1 Family history of malignant neoplasm of trachea, bronchus and lung; Z87.891 Personal history of nicotine dependence; E66.01 Morbid (severe) obesity due to excess calories; F32.A Depression, unspecified; G89.29 Other chronic pain; M54.50 Low back pain, unspecified; M79.604 Pain in right leg; M79.605 Pain in left leg
CPT/HCPCS: 36410; 36415; 71260; 74177; 76830; 76937; 78306; 80048; 80053; 81001; 81025; 82306; 82607; 82728; 82747; 83540; 83550; 83735; 83921; 85025; 85027; 85379; 85384; 85610; 85730; 86304; 86850; 86900; 86901; 86920; 87077; 87086; 87186; 87635; 88305; 88341; 88342; 93005; 96374; 96375; 99285

== ENCOUNTER → 2022-05-16 | Outpatient (CLI) | payer MEDICARE, OTHER ==
--- NOTE | 2022-05-17 12:33 | CT ---
EXAMINATION TYPE: CT ChestAbdPelvis w con CT DLP: 3203.8 mGycm, Automated exposure control for dose reduction was used. DATE OF EXAM: 05/16/2022 2:25 PM COMPARISON: CT of the abdomen pelvis on 10/27/2021. 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 Two-dimensional coronal and sagittal reconstructions were obtained. Findings: Poor amshzp-xu-eqwuf ratio secondary limits evaluation CHEST: LUNGS/ PLEURA: The lung parenchyma appears unremarkable. AIRWAY: Patent and unremarkable.. HEART: The heart is mildly enlarged for size. There is mitral valve annular calcifications. There is coronary artery calcifications. MEDIASTINUM: No gross evidence of adenopathy. VASCULATURE: No aortic aneurysm. MUSCULOSKELETAL: No acute osseous abnormalities. Multilevel disc degeneration changes are seen throug hout the spine. SOFT TISSUES/LYMPH NODES: Unremarkable. LOWER NECK: No significant findings. ABDOMEN: ABDOMEN LIVER: Diffusely hypoattenuating parenchyma. GALLBLADDER AND BILE DUCTS: Unremarkable. PANCREAS: Unremarkable. SPLEEN: Unremarkable. ADRENAL GLANDS: Unremarkable. KIDNEYS AND URETERS: No evidence of hydronephrosis or renal calculus. The ureters are unremarkable. PELVIS evaluation the pelvis is limited given streak artifact throughout the pelvis BLADDER: Unremarkable REPRODUCTIVE: Unremarkable. ABDOMEN & PELVIS STOMACH AND BOWEL: No evidence of bowel obstruction. PERITONEUM: No evidence of pneumoperitoneum or free fluid. VASCULATURE: No evidence of aortic aneurysm. MUSCULOSKELETAL: No acute osseous abnormalities. Multilevel disc degeneration changes are seen throug hout the spine. Mild scoliosis changes of the spine. LYMPH NODES: No gross evidence for lymphadenopathy. SOFT TISSUE/ABDOMINAL WALL: Unremarkable IMPRESSION: 1. Extremely limited evaluation of the pelvis, no evidence for recurrence or metastatic disease with in the abdomen. Consider repeat examination CT pelvis with increased dose/KVp at 140. 2. Moderate Coronary artery atherosclerosis. 3. Hepatic steatosis.
== END | disposition home or self-care (01) ==
LOC: RADCTMAIN 11:40
PROVIDERS: ATTEND Radiology Radiation Oncology
DX: C53.1 Malignant neoplasm of exocervix (principal); I25.10 Atherosclerotic heart disease of native coronary artery without angina pectoris; K76.0 Fatty (change of) liver, not elsewhere classified
CPT/HCPCS: 93017; 82565; 84520; 71260; 74177; 36415; Q9967 ×2

== ENCOUNTER 2022-05-18 11:36 | Inpatient (IN) | payer MEDICARE, OTHER ==
[2022-05-18 13:32] LABS: Anisocytosis Slight; HCT 35.9 % (34.0-46.0); HGB 11.6 gm/dL (11.4-16.0); Hypochromasia Slight; MCH 30.4 pg (25.0-35.0); MCHC 32.4 g/dL (31.0-37.0); MCV 93.9 fL (80.0-100.0); Platelet Count 219 k/uL (150-450); RBC 3.82 m/uL (3.80-5.40); RDW 16.3 % (11.5-15.5); WBC 12.5 k/uL (3.8-10.6)
[2022-05-18 13:59] LABS: Albumin 2.2 g/dL (3.5-5.0); Calcium 6.6 mg/dL (8.4-10.2); Potassium 3.8 mmol/L (3.5-5.1); Total Bilirubin 0.6 mg/dL (0.2-1.3); Total Protein 4.6 g/dL (6.3-8.2)
[2022-05-18 14:06] LABS: Band Neutrophils % 7 %; Eosinophils # (M) 0.13 k/uL (0-0.7); Metamyelocytes # (M) 0.13 k/uL (0); Metamyelocytes % 1 %; Monocytes # (M) 0.25 k/uL (0-1.0); Myelocytes # (M) 0.13 k/uL (0); Myelocytes % 1 %; Neutrophils % (M) 90 %; Nucleated Red Blood Cells 0 /100 WBC (0-0); Total Cells Counted 200
[2022-05-18 14:07] LABS: Toxic Vacuolation Present
[2022-05-18] MEDS ORDERED: CALCIUM GLUCONATE IN NACL 1 GM in SALINE 1 100ML.BAG IVPB ONE (14:28)
[2022-05-18] MEDS ORDERED: CALCIUM CARBONATE 500 MG CHEWABLE PO PRN (14:34)
[2022-05-18 14:59] LABS: Magnesium 1.1 mg/dL (1.6-2.3); Phosphorus 2.1 mg/dL (2.5-4.5)
[2022-05-18] MEDS ORDERED: MAGNESIUM SULFATE-D5W PMX 1 GM in DEXTROSE/WATER 1 100ML.BAG IVPB ONE (15:27)
--- NOTE | 2022-05-18 16:37 | ED ---
General Adult HPI - General Chief complaint: Extremity Injury, Lower Stated complaint: R ankle numbness Time Seen by Provider: 05/18/22 12:04 Source: EMS, RN notes reviewed, old records reviewed Mode of arrival: EMS Limitations: no limitations - History of Present Illness Initial comments: 61-year-old female presented with numbness to the right foot which had been present for the past several days. No associated injury. She did have some mild pain. She has a history of cervical and uterine cancer and is currently undergoing chemotherapy. She denied any speech abnormalities, denied headache. Denied cough or fever. No dyspnea. No chest pain currently. Patient was seen initially by the mid-level provider for the foot symptom. However while in the emergency department at approximately 1600 she developed mild dysarthria, NIH of 1. She was then activated code stroke at this time and received both CT and CT angiography. She is on Coumadin. With history of atrial fibrillation and had recent chemotherapy. - Related Data Home Medications Medication Instructions Recorded Confirmed Gabapentin [Neurontin] 100 mg PO HS 10/10/21 10/10/21 Levothyroxine Sodium 200 mcg PO DAILY 10/10/21 10/10/21 Nitroglycerin Sl Tabs [Nitrostat] 0.4 mg SL Q5M PRN 10/10/21 10/10/21 Nystatin 100,000Unit/gm Cream 1 applic TOPICAL BID PRN 10/10/21 10/10/21 [Mycostatin Cream] Omeprazole 20 mg PO Q48H 10/10/21 10/10/21 metFORMIN HCL 500 mg PO AC-TID 10/10/21 10/10/21 Previous Rx's Medication Instructions Recorded Cholecalciferol [Vitamin D3 (25 50 mcg PO DAILY 30 Days #60 tablet 10/23/21 Mcg = 1000 Iu)] Docusate [Colace] 100 mg PO DAILY 30 Days #30 cap 10/23/21 Ergocalciferol [Vitamin D2 (1250 1,250 mcg PO Q7D 30 Days #4 capsule 10/23/21 Mcg = 61748 Iu)] HYDROcodone/APAP 7.5-325MG [Salome 1 tab PO Q6HR PRN 3 Days #12 tab 10/23/21 7.5-325] Lactulose 20 gm PO BID PRN #120 ml 10/23/21 Sennosides [Senokot] 8.6 mg PO BID 30 Days #60 tablet 10/23/21 carvediloL [Coreg*] 12.5 mg PO BID-W/MEALS 30 Days #60 10/23/21 tab diphenhydrAMINE [Benadryl] 25 mg PO TID PRN #20 cap 10/23/21 lisinopriL [Zestril] 20 mg PO DAILY 30 Days #30 tab 10/23/21 Allergies Allergy/AdvReac Type Severity Reaction Status Date / Time No Known Allergies Allergy Verified 05/18/22 11:55 Review of Systems ROS Statement: Those systems with pertinent positive or pertinent negative responses have been documented in the HPI. ROS Other: All systems not noted in ROS Statement are negative. Past Medical History Past Medical History: Atrial Fibrillation, Cancer, Diabetes Mellitus, GERD/Reflux, Hypertension, Thyroid Disorder Additional Past Medical History / Comment(s): Pt states she has had intermittent vaginal bleeding over past one year, NIDDM type II, UTIs, hypothyroid, chronic low back pain, occasional bilateral leg pain at night. Ovarian cancer with chemo and radiation. History of Any Multi-Drug Resistant Organisms: None Reported Past Surgical History: Heart Catheterization, Tonsillectomy, Uterine Ablation Additional Past Surgical History / Comment(s): Nasal fracture with surgery, wisdom teeth extractions. Past Anesthesia/Blood Transfusion Reactions: Postoperative Nausea & Vomiting (PONV) Additional Past Anesthesia/Blood Transfusion Reaction / Comment(s): Pt received blood this hospitalization without reaction. Past Psychological History: Depression Smoking Status: Former smoker Past Alcohol Use History: None Reported Past Drug Use History: None Reported - Past Family History Father Family Medical History: Cancer Additional Family Medical History / Comment(s): Father of lung cancer. He was a smoker. Mother Family Medical History: Vascular Disorder Additional Family Medical History / Comment(s): Mother of a cerebral aneurysm at the age of 58 yrs. General Exam Limitations: no limitations General appearance: alert, in no apparent distress, obese Head exam: Present: atraumatic, normocephalic Eye exam: Present: normal appearance, PERRL ENT exam: Present: normal exam Neck exam: Present: normal inspection. Absent: tenderness, meningismus Respiratory exam: Present: normal lung sounds bilaterally. Absent: respiratory distress, wheezes Cardiovascular Exam: Present: regular rate, normal rhythm GI/Abdominal exam: Present: soft. Absent: distended, tenderness, guarding, rebound Extremities exam: Present: normal inspection, normal capillary refill. Absent: pedal edema, calf tenderness Neurological exam: Present: alert, oriented X3, motor sensory deficit (NIH of 1 and mild dysarthria.). Absent: CN II-XII intact Psychiatric exam: Present: normal affect, normal mood Skin exam: Present: warm, dry, intact Course Vital Signs 05/18/22 05/18/22 05/18/22 11:49 14:54 16:38 Temperature 98.9 F Pulse Rate 81 78 80 Respiratory 18 18 18 Rate Blood Pressure 125/70 122/78 137/70 O2 Sat by Pulse 98 98 98 Oximetry 05/18/22 05/18/22 17:00 18:00 Temperature Pulse Rate 78 76 Respiratory 18 20 Rate Blood Pressure 137/86 113/86 O2 Sat by Pulse 98 94 L Oximetry - Reevaluation(s) Reevaluation #1: 05/18/22 16:20 I was informed of a mild slurred speech noted in this patient just prior to my evaluation about 1600. Patient had been evaluated for right foot numbness over the past 48-72 hours. Patient has current cancer and is on chemotherapy. Additionally she is on Coumadin with history of atrial fibrillation. NIH of 1 for dysarthria. Code Stroke activated. EKG Findings - EKG Comments: EKG Findings:: EKG: Sinus rhythm ventricular rate of 79, SD interval 188, QRS duration 103, QTC 410, no ST segment elevation. Medical Decision Making - Medical Decision Making 61-year-old female initially with right foot and ankle pain and numbness over the past several days. This evolved into a speech abnormality while the patient was in the emergency department. I did discuss case with Dr. Neil palmer for stroke team. He recommends medical management given the low NIH. Patient's symptoms do improve while in the emergency department. She's given an aspirin. Her workup showed initially hypocalcemia and hypomagnesemia the electronic are replaced and repeated. She had positive troponin without active chest pain or EKG changes. This level will be trended. She will be admitted to Dr. Torrez who is aware of the patient. Both cardiology and neurology will be placed on consult. - Lab Data Result diagrams: 05/18/22 13:11 05/18/22 14:48 Lab Results 05/18/22 05/18/22 05/18/22 Range/Units 13:11 13:11 13:11 WBC 12.5 H (3.8-10.6) k/uL RBC 3.82 (3.80-5.40) m/uL Hgb 11.6 (11.4-16.0) gm/dL Hct 35.9 (34.0-46.0) % MCV 93.9 (80.0-100.0) fL MCH 30.4 (25.0-35.0) pg MCHC 32.4 (31.0-37.0) g/dL RDW 16.3 H (11.5-15.5) % Plt Count 219 (150-450) k/uL MPV 8.0 Neutrophils % (Manual) 90 % Band Neuts % (Manual) 7 % Monocytes % (Manual) 2 % Eosinophils % (Manual) 1 % Metamyelocytes % 1 % Myelocytes % 1 % Neutrophils # (Manual) 12.10 H (1.3-7.7) k/uL Monocytes # (Manual) 0.25 (0-1.0) k/uL Eosinophils # (Manual) 0.13 (0-0.7) k/uL Metamyelocytes # (Man) 0.13 H (0) k/uL Myelocytes # (Manual) 0.13 H (0) k/uL Nucleated RBCs 0 (0-0) /100 WBC Manual Slide Review Performed Toxic Vacuolation Present Hypochromasia Slight Anisocytosis Slight PT (9.0-12.0) sec INR (<1.2) APTT (22.0-30.0) sec Sodium 137 (137-145) mmol/L Potassium 3.8 (3.5-5.1) mmol/L Chloride 113 H (98-107) mmol/L Carbon Dioxide 18 L (22-30) mmol/L Anion Gap 6 mmol/L BUN 25 H (7-17) mg/dL Creatinine 0.90 (0.52-1.04) mg/dL Est GFR (CKD-EPI)AfAm 80 (>60 ml/min/1.73 sqM) Est GFR (CKD-EPI)NonAf 69 (>60 ml/min/1.73 sqM) Glucose 199 H (74-99) mg/dL Calcium 6.6 L (8.4-10.2) mg/dL Ionized Calcium Molina (4.5-5.3) mg/dL Phosphorus 2.1 L (2.5-4.5) mg/dL Magnesium 1.1 L (1.6-2.3) mg/dL Total Bilirubin 0.6 (0.2-1.3) mg/dL AST 11 L (14-36) U/L ALT 8 (4-34) U/L Alkaline Phosphatase 54 (38-126) U/L Troponin I 0.334 H* (0.000-0.034) ng/mL Total Protein 4.6 L (6.3-8.2) g/dL Albumin 2.2 L (3.5-5.0) g/dL 05/18/22 05/18/22 05/18/22 Range/Units 14:48 14:48 16:38 WBC (3.8-10.6) k/uL RBC (3.80-5.40) m/uL Hgb (11.4-16.0) gm/dL Hct (34.0-46.0) % MCV (80.0-100.0) fL MCH (25.0-35.0) pg MCHC (31.0-37.0) g/dL RDW (11.5-15.5) % Plt Count (150-450) k/uL MPV Neutrophils % (Manual) % Band Neuts % (Manual) % Monocytes % (Manual) % Eosinophils % (Manual) % Metamyelocytes % % Myelocytes % % Neutrophils # (Manual) (1.3-7.7) k/uL Monocytes # (Manual) (0-1.0) k/uL Eosinophils # (Manual) (0-0.7) k/uL Metamyelocytes # (Man) (0) k/uL Myelocytes # (Manual) (0) k/uL Nucleated RBCs (0-0) /100 WBC Manual Slide Review Toxic Vacuolation Hypochromasia Anisocytosis PT 10.9 (9.0-12.0) sec INR 1.0 (<1.2) APTT 22.4 (22.0-30.0) sec Sodium 135 L (137-145) mmol/L Potassium 4.5 (3.5-5.1) mmol/L Chloride 104 (98-107) mmol/L Carbon Dioxide 20 L (22-30) mmol/L Anion Gap 11 mmol/L BUN 30 H (7-17) mg/dL Creatinine 1.11 H (0.52-1.04) mg/dL Est GFR (CKD-EPI)AfAm 62 (>60 ml/min/1.73 sqM) Est GFR (CKD-EPI)NonAf 54 (>60 ml/min/1.73 sqM) Glucose 242 H (74-99) mg/dL Calcium 8.4 (8.4-10.2) mg/dL Ionized Calcium Molina 4.6 (4.5-5.3) mg/dL Phosphorus (2.5-4.5) mg/dL Magnesium (1.6-2.3) mg/dL Total Bilirubin 0.7 (0.2-1.3) mg/dL AST 14 (14-36) U/L ALT 9 (4-34) U/L Alkaline Phosphatase 76 (38-126) U/L Troponin I (0.000-0.034) ng/mL Total Protein 5.6 L (6.3-8.2) g/dL Albumin 2.9 L (3.5-5.0) g/dL Disposition 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
[2022-05-18 17:03] LABS: Partial Thromboplastin Time 22.4 sec (22.0-30.0); Prothrombin Time 10.9 sec (9.0-12.0)
--- NOTE | 2022-05-18 17:06 | CT ---
EXAMINATION TYPE: CT brain wo con DATE OF EXAM: 05/18/2022 COMPARISON: None HISTORY: cva Contrast CT DLP: 1190.6 mGycm Automated exposure control for dose reduction was used. Images obtained of the brain with no contrast. There is mild cerebral atrophy. There is no mass effec t or midline shift. No sign of intracranial hemorrhage. The calvarium is intact. Sella turcica appears normal. No evidence of orbital mass. IMPRESSION: Mild atrophy. No acute intracranial abnormality.
[2022-05-18] MEDS ORDERED: ASPIRIN 325 MG TAB PO STA (17:28)
--- NOTE | 2022-05-18 17:44 | CT ---
EXAMINATION TYPE: CT angio head neck DATE OF EXAM: 05/18/2022 COMPARISON: None HISTORY: cva CT DLP: 944.3 mGycm Automated exposure control for dose reduction was used. CONTRAST: Performed with IV Contrast, patient injected with 65cc mL of Isovue 370. Images obtained from the aortic arch to the vertex of the brain with the IV contrast. There are Three -D postprocessed images. There is normal branching pattern of the great vessels on the aortic arch. There is normal contrast o pacification of the subclavian arteries. Exam limited by patient size. There is arterial flow in the common internal and external carotid arteries bilaterally. There is arterial flow in the vertebral ar teries. There is arterial flow in the vertebrobasilar artery system. There are spondylotic changes in the cervical spine with some spinal stenosis on the right side at C3-4. I do not see definite evidence for hemodynamic arterial stenosis in the carotid arteries. There is arterial flow in the anterior middle and posterior cerebral arteries bilaterally. Exam limit ed by patient size. There is suboptimal contrast density in the intracranial arteries. There is arter ial flow in both intracranial internal carotid arteries. No mass effect. No evidence of intracranial aneurysm or neovascularity. No evidence of hemodynamic arterial stenosis in the brain. There is gurjit l enhancement of the venous sinuses. IMPRESSION: No evidence of hemodynamic arterial stenosis in the brain and neck. No aneurysm. Limited exam.
[2022-05-18 17:56] LABS: Albumin 2.9 g/dL (3.5-5.0); Calcium 8.4 mg/dL (8.4-10.2); Potassium 4.5 mmol/L (3.5-5.1); Total Bilirubin 0.7 mg/dL (0.2-1.3); Total Protein 5.6 g/dL (6.3-8.2)
[2022-05-18] MEDS ORDERED: NITROGLYCERIN SL TABS 0.4 MG TAB SUBLINGUAL PRN (22:23)
[2022-05-18] MEDS ORDERED: GABAPENTIN 100 MG CAP PO PRN (22:23)
[2022-05-18] MEDS ORDERED: ACETAMINOPHEN TAB 500 MG TAB PO PRN (22:23)
[2022-05-18] MEDS ORDERED: IBUPROFEN 200 MG TAB PO PRN (22:23)
[2022-05-18] MEDS ORDERED: ACETAMINOPHEN TAB 500 MG TAB PO SCH (22:30)
[2022-05-18] MEDS: diphenhydrAMINE 25 MG CAP PO SCH (22:51)
[2022-05-18] MEDS: carvediloL 6.25 MG TAB PO SCH (22:58)
[2022-05-18] MEDS ORDERED: NYSTATIN 100,000UNIT/GM CREAM 30 GM TUBE TOPICAL PRN (23:00)
[2022-05-18 23:54] LABS: Glucose,Whole Blood 262 mg/dL (70-110)
[2022-05-19 06:27] LABS: Glucose,Whole Blood 228 mg/dL (70-110)
[2022-05-19] MEDS: LEVOTHYROXINE 100 MCG TAB PO SCH (06:38)
[2022-05-19] MEDS: metFORMIN 500 MG TAB PO SCH ×3 (06:38→17:08)
[2022-05-19] MEDS: carvediloL 6.25 MG TAB PO SCH ×2 (06:38→17:07)
--- NOTE | 2022-05-19 07:43 | P.CRDCN ---
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 She actually presented first for numbness of her right foot however in the ER started developing dysarthria with slurred speech. She does have some expressive aphasia and CAT scan was performed of the brain which showed no acute pathology mild atrophy. She does have a history of atrial fibrillation however apparently had significant vaginal bleeding and therefore has been off of Coumadin for the last 6 months. Her INR was noted to be normal at 1.0. She states she follows with a field party manager summer around the [facility] location. She does have a history of prior heart catheterization from approximate 3 years ago at [facility] was performed and she was told her body "had its own bypasses" likely consistent with AIR CONTROL/[employer]I [employer] WARF[employer] OFFICER. She denies any significant chest pain or pressure. Appears no TPA was given given low NIH score. She states she has 2 more rounds of chemo for her uterine cancer. She denies any current vaginal bleeding. She did have a screening CT abdomen and pelvis performed 05/17/2022 which did not show any significant recurrence however somewhat limited exam and also noted coronary artery calcifications. Blood work shows white blood cell count 12.5, hemoglobin 11.6, bicarb 18, creatinine 0.9, calcium 6.6, troponin 0.33, 0.33, 0.30, albumin 2.9, BUN 30, creatinine 1.1, magnesium 1.1. EKG shows sinus rhythm with PACs and nonspecific T-wave flattening in 1 and aVL. REVIEW OF SYSTEMS At the time of my exam: CONSTITUTIONAL: Denies fever or chills. CARDIOVASCULAR: Denies chest pain, shortness of breath, orthopnea, PND or palpitations. RESPIRATORY: Denies cough. GASTROINTESTINAL: Denies abdominal pain, diarrhea, constipation, nausea or vomiting. MUSCULOSKELETAL: Denies myalgias. NEUROLOGIC: +numbness, +dysarthria, slurred speech. ENDOCRINE: Denies fatigue, weight change, polydipsia or polyurina. GENITOURINARY: Denies burning, hematuria or urgency with micturation. HEMATOLOGIC: Denies history of anemia or bleeding. PHYSICAL EXAMINATION Vital signs reviewed. CONSTITUTIONAL: No apparent distress, +expressive aphasia, +dysarthria and mild facial droop, obese HEENT: Head is normocephalic. Pupils are equal, round. Sclerae anicteric. Mucous membranes of the mouth are moist. No JVD. No carotid bruit. CHEST EXAMINATION: Lungs are clear to auscultation. No chest wall tenderness is noted on palpation or with deep breathing. HEART EXAMINATION: Regular rate and rhythm. S1, S2 heard. No murmurs, gallops or rub. ABDOMEN: Soft, nontender. Positive bowel sounds. EXTREMITIES: 2+ peripheral pulses, no lower extremity edema and no calf tenderness. NEUROLOGIC EXAMINATION: Patient is awake, alert and oriented x3. ASSESSMENT 1. Acute stroke likely related to A. fib not on any anticoagulation 2. Paroxysmal atrial fibrillation currently sinus rhythm 3. Non-STEMI do not suspect a type I mechanism, likely type II mechanism r elated to stroke vs chronically elevated troponins 4. Reported history of CAD with likely AIR CONTROL/[employer]I [employer] WARF[employer] OFFICER 5. Hypertension 6. Diabetes mellitus type 2 7. Uterine cancer undergoing chemotherapy with prior significant vaginal bleeding. Previously taken off of Coumadin approximate 6 months ago PLAN Patient unfortunately suffered a stroke likely related to A. fib. She has not been anticoagulated. Ideally add anticoagulation when cleared by neurology. Does not appear she has any further continued vaginal bleeding and at this point benefits appear to outweigh the risks. Do not suspect acute coronary syndrome with elevated troponins and no significant angina-type symptoms. Does have reported AIR CONTROL/[employer]I [employer] WARF[employer] OFFICER. Attempt to obtain records from [facility]. Check 2-D echo. Continue with current medical therapy. Past Medical History Past Medical History: Atrial Fibrillation, Cancer, Diabetes Mellitus, GERD/Reflux, Hypertension, Thyroid Disorder Additional Past Medical History / Comment(s): Pt states she has had intermittent vaginal bleeding over past one year, NIDDM type II, UTIs, hypothyroid, chronic low back pain, occasional bilateral leg pain at night. Ovarian cancer with chemo and radiation. History of Any Multi-Drug Resistant Organisms: None Reported Past Surgical History: Heart Catheterization, Tonsillectomy, Uterine Ablation Additional Past Surgical History / Comment(s): Nasal fracture with surgery, wisdom teeth extractions. Past Anesthesia/Blood Transfusion Reactions: Postoperative Nausea & Vomiting (PONV) Additional Past Anesthesia/Blood Transfusion Reaction / Comment(s): Pt received blood this hospitalization without reaction. Past Psychological History: Depression Additional Psychological History / Comment(s): Pt resides alone in an apartment. She uses a walker or cane. She drives. Smoking Status: Former smoker Past Alcohol Use History: None Reported Additional Past Alcohol Use History / Comment(s): PT started smoking as a teen and quit in 1994. Past Drug Use History: None Reported - Past Family History Father Family Medical History: Cancer Additional Family Medical History / Comment(s): Father of lung cancer. He was a smoker. Mother Family Medical History: Vascular Disorder Additional Family Medical History / Comment(s): Mother of a cerebral aneurysm at the age of 58 yrs. Medications and Allergies Home Medications Medication Instructions Recorded Confirmed Type Gabapentin [Neurontin] 100 mg PO TID PRN 10/10/21 05/18/22 History Levothyroxine Sodium 200 mcg PO DAILY 10/10/21 05/18/22 History Nitroglycerin Sl Tabs [Nitrostat] 0.4 mg SL Q5M PRN 10/10/21 05/18/22 History Nystatin 100,000Unit/gm Cream 1 applic TOPICAL BID PRN 10/10/21 05/18/22 History [Mycostatin Cream] HYDROcodone/APAP 7.5-325MG [Lotus 1 tab PO Q6HR PRN 3 Days #12 tab 10/23/21 05/18/22 Rx 7.5-325] Acetaminophen Tab [Tylenol Tab] 1,000 mg PO Q6H PRN 05/18/22 05/18/22 History Acetaminophen/Diphenhydramine 2 tab PO HS 05/18/22 05/18/22 History [Tylenol PM 500-25mg] Ibuprofen [Motrin Ib] 200 - 400 mg PO Q6H PRN 05/18/22 05/18/22 History Omeprazole Magnesium [PriLOSEC OTC] 20 mg PO Q48H 05/18/22 05/18/22 History Oxybutynin ER [Ditropan Xl] 10 mg PO DAILY 05/18/22 05/18/22 History Warfarin Sodium 6 mg PO HS 05/18/22 05/18/22 History carvediloL [Coreg] 25 mg PO BID 05/18/22 05/18/22 History dilTIAZem HCL [Cardizem LA] 180 mg PO DAILY 05/18/22 05/18/22 History metFORMIN HCL ER [Glucophage XR] 500 mg PO TID-W/MEALS 05/18/22 05/18/22 History Allergies Allergy/AdvReac Type Severity Reaction Status Date / Time apixaban [From Eliquis] AdvReac Unsure, Verified 05/18/22 19:08 told by [employer] Sales Manager not to take Physical Exam Vitals: Vital Signs Temp Pulse Pulse Resp BP BP Pulse Ox 05/19/22 03:05 98.9 F 72 18 118/71 97 05/18/22 23:35 76 18 158/72 97 05/18/22 20:55 98.4 F 75 18 131/64 95 05/18/22 19:49 98.4 F 82 18 113/74 96 05/18/22 19:00 81 18 113/86 05/18/22 18:00 76 20 113/86 94 L 05/18/22 17:00 78 18 137/86 98 05/18/22 16:38 80 18 137/70 98 05/18/22 14:54 78 18 122/78 98 05/18/22 11:49 98.9 F 81 18 125/70 98 Intake and Output 05/18/22 05/19/22 05/19/22 22:59 06:59 14:59 Other: Voiding Method Bedpan Bedpan Diaper Diaper # Voids 1 Weight 162.386 kg Results 05/18/22 13:11 05/18/22 14:48 Cardiac Enzymes 05/18/22 05/18/22 05/18/22 Range/Units 13:11 13:11 14:48 AST 11 L 14 (14-36) U/L Troponin I 0.334 H* (0.000-0.034) ng/mL 05/18/22 05/18/22 Range/Units 18:46 22:12 AST (14-36) U/L Troponin I 0.335 H* 0.301 H* (0.000-0.034) ng/mL Coagulation 05/18/22 Range/Units 16:38 PT 10.9 (9.0-12.0) sec APTT 22.4 (22.0-30.0) sec CBC 05/18/22 Range/Units 13:11 WBC 12.5 H (3.8-10.6) k/uL RBC 3.82 (3.80-5.40) m/uL Hgb 11.6 (11.4-16.0) gm/dL Hct 35.9 (34.0-46.0) % Plt Count 219 (150-450) k/uL Comprehensive Metabolic Panel 05/18/22 05/18/22 Range/Units 13:11 14:48 Sodium 137 135 L (137-145) mmol/L Potassium 3.8 4.5 (3.5-5.1) mmol/L Chloride 113 H 104 (98-107) mmol/L Carbon Dioxide 18 L 20 L (22-30) mmol/L BUN 25 H 30 H (7-17) mg/dL Creatinine 0.90 1.11 H (0.52-1.04) mg/dL Glucose 199 H 242 H (74-99) mg/dL Calcium 6.6 L 8.4 (8.4-10.2) mg/dL AST 11 L 14 (14-36) U/L ALT 8 9 (4-34) U/L Alkaline Phosphatase 54 76 (38-126) U/L Total Protein 4.6 L 5.6 L (6.3-8.2) g/dL Albumin 2.2 L 2.9 L (3.5-5.0) g/dL Current Medications Generic Name Dose Route Start Last Admin Trade Name Freq PRN Reason Stop Dose Admin Acetaminophen 1,000 mg 05/18/22 22:23 Acetaminophen Tab 500 Mg Tab PO Q6H PRN Fever and/ or Pain Acetaminophen 1 mg 05/18/22 22:30 05/18/22 22:51 Acetaminophen Tab 500 Mg Tab PO Not Given HS [facility] Hydrocodone Bitart/Acetaminophen 1 each 05/18/22 22:23 Hydrocodone/Apap 7.5-325mg 1 Each Tab PO Q6HR PRN Pain Aspirin 325 mg 05/19/22 09:00 Aspirin 325 Mg Tab PO DAILY [facility] Calcium Carbonate/Glycine 1,000 mg 05/18/22 14:34 Calcium Carbonate 500 Mg Chewable PO ONCE PRN Heartburn Carvedilol 25 mg 05/18/22 22:50 05/19/22 06:38 Carvedilol 6.25 Mg Tab PO 25 mg BID-W/MEALS [facility] Administration Diltiazem HCl 180 mg 05/19/22 09:00 Diltiazem Cd 180 Mg Cap.Er.24h PO DAILY [facility] Diphenhydramine HCl 50 mg 05/18/22 22:30 05/18/22 22:51 Diphenhydramine 25 Mg Cap PO Not Given HS [facility] Gabapentin 100 mg 05/18/22 22:23 05/18/22 22:58 Gabapentin 100 Mg Cap PO 100 mg TID PRN Administration Pain Ibuprofen 200 mg 05/18/22 22:23 Ibuprofen 200 Mg Tab PO Q6H PRN Fever and/ or Pain Levothyroxine Sodium 200 mcg 05/19/22 06:30 05/19/22 06:38 Levothyroxine 100 Mcg Tab PO 200 mcg DAILY@0630 [facility] Administration Metformin HCl 500 mg 05/19/22 07:30 05/19/22 06:38 Metformin 500 Mg Tab PO 500 mg TID-W/MEALS [facility] Administration Nitroglycerin 0.4 mg 05/18/22 22:23 Nitroglycerin Sl Tabs 0.4 Mg Tab SUBLINGUAL Q5M PRN Chest Pain Nystatin 1 applic 05/18/22 23:00 Nystatin 100,000unit/Gm Cream 30 Gm Tube TOPICAL BID PRN Rash Protocol Oxybutynin Chloride 10 mg 05/19/22 09:00 Oxybutynin 10 Mg Tab.Er.24 PO DAILY [facility] Pantoprazole Sodium 40 mg 05/20/22 09:00 Pantoprazole 40 Mg Tablet PO Q48H [facility] Intake and Output 05/18/22 05/19/22 05/19/22 22:59 06:59 14:59 Other: Voiding Method Bedpan Bedpan Diaper Diaper # Voids 1 Weight 162.386 kg 05/18/22 13:11 05/18/22 14:48
[2022-05-19] MEDS: ASPIRIN 81 MG PO SCH (08:59)
[2022-05-19] MEDS: OXYBUTYNIN 10 MG TAB.ER.24 PO SCH (08:59)
[2022-05-19] MEDS: DILTIAZEM CD 180 MG CAP.ER.24H PO SCH (08:59)
[2022-05-19] MEDS ORDERED: ASPIRIN 325 MG TAB PO SCH (09:00)
[2022-05-19 09:35] LABS: Chol/HDL Ratio 5.53 Ratio; LDL Cholesterol,Calculated 76.2 mg/dL (0.0-131.0)
[2022-05-19] MEDS ORDERED: DILTIAZEM DRIP BOLUS FROM BAG 1 MG SOLN IV STA (09:54)
[2022-05-19] MEDS: DILTIAZEM 125 MG in SODIUM CHLORIDE 0.9% 100 ML IV SCH ×2 (10:31→23:20)
--- NOTE | 2022-05-19 11:14 | CA ---
Transthoracic Echo Report Name: Fiorella Smith Age: 61 Gender: F : 1960 Exam Date: 05/19/2022 09:28 Exam Location: [facility] Ht (in): 66 Wt (lb): 358 Ordering Physician: Paulino Rinaldi DO ([email or web address]) Attending/Referring Phys: [employer] Advisor Jacey Mcdowell RDCS Procedure CPT: Indications: re: NSTEMI Cardiac Hx: Technical Quality: Technically difficult study Contrast 1: Lumason Total Dose (mL): 1 Contrast 2: Total Dose (mL): MEASUREMENTS (Male / Female) Normal Values 2D ECHO LV Diastolic Diameter PLAX 3.4 cm 4.2 - 5.9 / 3.9 - 5.3 cm LV Systolic Diameter PLAX 1.3 cm IVS Diastolic Thickness 1.8 cm 0.6 - 1.0 / 0.6 - 0.9 cm LVPW Diastolic Thickness 2.0 cm 0.6 - 1.0 / 0.6 - 0.9 cm LV Relative Wall Thickness 1.1 M-MODE Aortic Root Diameter MM 3.6 cm LA Systolic Diameter MM 3.0 cm LA Ao Ratio MM 0.8 AV Cusp Separation MM 1.8 cm DOPPLER AV Peak Velocity 118.9 cm/s AV Peak Gradient 5.7 mmHg MR Peak Velocity 142.2 cm/s MR Peak Gradient 8.1 mmHg FINDINGS Left Ventricle Severe left ventricular hypertrophy. Left ventricular ejection fraction is estimated at 55-60 %. Right Ventricle Right ventricle not well visualized. Right ventricular systolic pressure within normal limits. Right Atrium Right atrium not well visualized. Left Atrium Left atrium not well visualized. Mitral Valve Mitral valve not well visualized. Trace mitral regurgitation. Aortic Valve Aortic valve not well visualized. Tricuspid Valve Tricuspid valve not well visualized. Trace tricuspid regurgitation. Pulmonic Valve Pulmonic valve not well visualized. Pericardium No pericardial effusion. Aorta Aortic root and proximal ascending aorta not well visualized. CONCLUSIONS Severe left ventricular hypertrophy Normal left ventricular ejection fraction 55-60% Trace mitral regurgitation Trace tricuspid regurgitation No pericardial effusion Previewed by: Dr. Paulino Rinaldi DO (Electronically Signed) Final Date: 19 May 2022 11:13
--- NOTE | 2022-05-19 11:52 | P.CNNES ---
History of Present Illness Consult date: 05/19/22 Requesting physician: Smooth Dye Reason for Consult: CVA History of Present Illness: This is a 61-year-old woman with medical history of atrial fibrillation on any anticoagulation because of vaginal bleeding, ovarian cancer post chemotherapy and radiation therapy, vaginal/uterine bleeding, diabetes mellitus who presented emergency department because of numbness over the right foot for the past several days prior to presented to the hospital. Then while she was in the emergency department she developed dysarthria around 1600 on presentation yesterday and her NIH was a 1 therefore stroke code was activated. Seems the patient has been off Coumadin for the past 6 month since she was having vaginal/uterine bleeding. She is not on any antiplatlets at home. Per overnight nurse she stated that the patient was asked expressing expressive aphasia, trouble finding thoughts, right facial droop and numbness in the right foot. No weakness that she was appreciated. Some other workup in our facility during this hospital visit consisted of: CT of the head is reported as mild atrophy. No acute intercranial abnormality. I personally reviewed the CT of the head and I agree with the finding. EKG angiography of the head and neck was reported as no evidence of hemodynamic arterial stenosis in the brain and neck. No aneurysm. Limited exam. Patient had slightly elevated troponin of 0.334. Initial serum glucose 199. Lipid panel is triglyceride 221, cholesterol 147, LDL 76 and HDL 26. The ED team spoke with the stroke attending and since the patient had symptoms several days prior to presentation and low NIH was felt the patient is not TPA candidate and the risks outweigh the benefits . I notified overnight nurse to pursue with MRI Brain. I notified her to pursue with MRI Brain. Review of Systems Review of system: The 12 point system was reviewed and apparent positive and negative per HPI. Past Medical History Past Medical History: Atrial Fibrillation, Cancer, Diabetes Mellitus, GERD/Reflux, Hypertension, Thyroid Disorder Additional Past Medical History / Comment(s): Pt states she has had intermittent vaginal bleeding over past one year, NIDDM type II, UTIs, hypothyroid, chronic low back pain, occasional bilateral leg pain at night. Ovarian cancer with chemo and radiation. History of Any Multi-Drug Resistant Organisms: None Reported Past Surgical History: Heart Catheterization, Tonsillectomy, Uterine Ablation Additional Past Surgical History / Comment(s): Nasal fracture with surgery, wisdom teeth extractions. Past Anesthesia/Blood Transfusion Reactions: Postoperative Nausea & Vomiting (PONV) Additional Past Anesthesia/Blood Transfusion Reaction / Comment(s): Pt received blood this hospitalization without reaction. Past Psychological History: Depression Additional Psychological History / Comment(s): Pt resides alone in an apartment. She uses a walker or cane. She drives. Smoking Status: Former smoker Past Alcohol Use History: None Reported Additional Past Alcohol Use History / Comment(s): PT started smoking as a teen and quit in 1994. Past Drug Use History: None Reported - Past Family History Father Family Medical History: Cancer Additional Family Medical History / Comment(s): Father of lung cancer. He was a smoker. Mother Family Medical History: Vascular Disorder Additional Family Medical History / Comment(s): Mother of a cerebral aneurysm at the age of 58 yrs. Medications and Allergies Home Medications Medication Instructions Recorded Confirmed Type Gabapentin [Neurontin] 100 mg PO TID PRN 10/10/21 05/18/22 History Levothyroxine Sodium 200 mcg PO DAILY 10/10/21 05/18/22 History Nitroglycerin Sl Tabs [Nitrostat] 0.4 mg SL Q5M PRN 10/10/21 05/18/22 History Nystatin 100,000Unit/gm Cream 1 applic TOPICAL BID PRN 10/10/21 05/18/22 History [Mycostatin Cream] HYDROcodone/APAP 7.5-325MG [[place] 1 tab PO Q6HR PRN 3 Days #12 tab 10/23/21 05/18/22 Rx 7.5-325] Acetaminophen Tab [Tylenol Tab] 1,000 mg PO Q6H PRN 05/18/22 05/18/22 History Acetaminophen/Diphenhydramine 2 tab PO 05/18/22 05/18/22 History [Tylenol PM 500-25mg] Ibuprofen [Motrin Ib] 200 - 400 mg PO Q6H PRN 05/18/22 05/18/22 History Omeprazole Magnesium [PriLOSEC OTC] 20 mg PO Q48H 05/18/22 05/18/22 History Oxybutynin ER [Ditropan Xl] 10 mg PO DAILY 05/18/22 05/18/22 History Warfarin Sodium 6 mg PO HS 05/18/22 05/18/22 History carvediloL [Coreg] 25 mg PO BID 05/18/22 05/18/22 History dilTIAZem HCL [Cardizem LA] 180 mg PO DAILY 05/18/22 05/18/22 History metFORMIN HCL ER [Glucophage XR] 500 mg PO TID-W/MEALS 05/18/22 05/18/22 History Allergies Allergy/AdvReac Type Severity Reaction Status Date / Time apixaban [From Eliquis] AdvReac Unsure, Verified 05/18/22 19:08 told by Ship'S Engineer not to take Physical Examination - Vital Signs Vital Signs: Vital Signs Temp Pulse Pulse Resp BP BP Pulse Ox 05/19/22 08:00 98.3 F 70 17 120/66 97 05/19/22 03:05 98.9 F 72 18 118/71 97 05/18/22 23:35 76 18 158/72 97 05/18/22 20:55 98.4 F 75 18 131/64 95 05/18/22 19:49 98.4 F 82 18 113/74 96 05/18/22 19:00 81 18 113/86 05/18/22 18:00 76 20 113/86 94 L 05/18/22 17:00 78 18 137/86 98 05/18/22 16:38 80 18 137/70 98 05/18/22 14:54 78 18 122/78 98 05/18/22 11:49 98.9 F 81 18 125/70 98 Intake and Output 05/18/22 05/19/22 05/19/22 22:59 06:59 14:59 Other: Voiding Method Bedpan Bedpan Diaper Diaper # Voids 1 1 Weight 162.386 kg GENERAL: The patient is a morbid obese woman, lying in bed and is not in acute distress. CHEST: The heart rate is regular rate rhythm. No murmurs to auscultation. LUNG: Clear to auscultation bilaterally no wheezing noted throughout. Not labored breathing. ABDOMEN/GI: Bowel sounds present in all 4 quadrants. No tenderness to palpation throughout. NEUROLOGICAL: Higher mental function: The patient is awake, alert, oriented to self, place and time. Patient is following commands. Has expressive aphasia. Intact repitition. No neglect. Cranial nerves: The pupils are round, equal and reactive to light. Visual palma are full to confrontation throughout. Extraocular movement is intact no nystagmus is noted. Facial sensation is normal to touch throughout. Mild right lower facial droop. Hearing is normal bilaterally to hand rub. Tongue is midline and moved [id number] without any difficulty. Mild dysarthria is noted. Shoulder shrug is normal bilaterally. Motor: The strength is 5 over 5 throughout uppers and lifting lowers above gravity without focality (has edema in lowers). Normal tone and bulk. Cerebellum: Normal finger to nose bilaterally. Sensation: Sensation is normal to touch throughout. Reflexes (right/left):1+ throughout. Plantars are mute bilaterally. Results - Laboratory Findings CBC and BMP: 05/18/22 13:11 05/18/22 14:48 Abnormal Lab Findings: Abnormal Labs 05/18/22 05/18/22 05/18/22 13:11 13:11 13:11 WBC 12.5 H RDW 16.3 H Neutrophils # (Manual) 12.10 H Metamyelocytes # (Man) 0.13 H Myelocytes # (Manual) 0.13 H Sodium Chloride 113 H Carbon Dioxide 18 L BUN 25 H Creatinine Glucose 199 H POC Glucose (mg/dL) Calcium 6.6 L Phosphorus 2.1 L Magnesium 1.1 L AST 11 L Troponin I 0.334 H* Total Protein 4.6 L Albumin 2.2 L Triglycerides VLDL Cholesterol, Calc HDL Cholesterol 05/18/22 05/18/22 05/18/22 13:11 14:48 18:46 WBC RDW Neutrophils # (Manual) Metamyelocytes # (Man) Myelocytes # (Manual) Sodium 135 L Chloride Carbon Dioxide 20 L BUN 30 H Creatinine 1.11 H Glucose 242 H POC Glucose (mg/dL) Calcium Phosphorus Magnesium AST Troponin I 0.335 H* Total Protein 5.6 L Albumin 2.9 L Triglycerides 221.00 H VLDL Cholesterol, Calc 44.20 H HDL Cholesterol 26.60 L 05/18/22 05/18/22 05/19/22 22:12 23:52 06:26 WBC RDW Neutrophils # (Manual) Metamyelocytes # (Man) Myelocytes # (Manual) Sodium Chloride Carbon Dioxide BUN Creatinine Glucose POC Glucose (mg/dL) 262 H 228 H Calcium Phosphorus Magnesium AST Troponin I 0.301 H* Total Protein Albumin Triglycerides VLDL Cholesterol, Calc HDL Cholesterol Assessment and Plan Assessment: Acute CVA (right foot numbness for past couple days. In our facility has right facial droop, expressive aphasia). Likely cardioembolic (atrial fibrillation and not on anticoagulation) Elevated troponin Atrial fibrillation not on any anticoagulation because of vaginal bleeding (off Coumadin for past 6 months) Ovarian cancer post chemotherapy and radiation therapy Vaginal/uterine bleeding History of coronary artery disease Hypertension Hyperlipidemia Diabetes mellitus Plan: Patient was given aspirin 325mg once. Cardiology started aspirin 81 mg which is I agree (was not on any home antiplatelets). If possible we can do dual antiplatelet of aspirin 81 and Plavix 75 but if the risk of bleeding is high due to the vaginal uterine bleeding we'll hold off and continue aspirin 81mg. I started the patient on Lipitor 40 mg daily at bedtime for secondary stroke prophylaxis. We'll hold off on using anticoagulation because of recent stroke and second because of patient history of vaginal uterine bleeding and risk outweigh the benefit. Ordered MRI the brain 2-D echo was ordered and pending Continue her checks Continue cardiac monitoring PT OT and TEACHER DRAMATICS are consulted Cardiology team is consulted. Will defer the rest of medical management to primary team. For DVT prophylaxis: Started on subq heparin 5000U every 8 hours. The plan is discussed with patient and her nurse. Thank you for the consultation. Juaquin Chase M.D. Neuro-Hospitalist Time with Patient: Greater than 30
--- NOTE | 2022-05-19 16:37 | P.HPIM ---
History of Present Illness H&P Date: 05/19/22 Chief Complaint: Dysarthria This is a pleasant 61-year-old patient, follows with Dr. Smooth Bob. Chronic stable medical conditions include diabetes, GERD, essential hyper tension, hypothyroid. Chronic low back pain. Ovarian cancer treatment for chemo and radiation treatment. Patient at baseline uses a walker and a cane. Patient presented to ER with some right foot numbness. In the ER patient developed dysarthria. Computed tomography scan brain was unremarkable.. Neurology consulted. Patient's INR was 1. Sinus rhythm. Neurology was consulted. No weakness in the arms and legs otherwise. No headache. No change in vision. This morning speech remains slurred. Review of systems: GEN.: Tired EYES: None HEENT: None NECK: None RESPIRATORY: None CARDIOVASCULAR: None GASTROINTESTINAL: None GENITOURINARY: None MUSCULOSKELETAL: Joint pains LYMPHATICS: None HEMATOLOGICAL: None PSYCHIATRY: None NEUROLOGICAL: As above Past medical history to include: Atrial fibrillation, diabetes, GERD, hypertension, hypothyroid, ovarian cancer with chemo and radiation treatment. Depression. Social history: Lives alone in an apartment. Does use a walker and cane. Patient started smoking as a teenager and stopped in 1994. No alcohol. Family history: Father of lung cancer Physical examination: VITAL SIGNS: 98.9, 81, 18, 125-70, 98% room air upon presentation GENERAL: BMI 57.8, laying in bed awake tired. EYES: Pupils equal. Conjunctiva normal. HEENT: External appearance of nose and ears normal, oral cavity grossly normal. NECK: JVD unable to assess; masses not palpable. HEART: First and second heart sounds are normal; no edema. LUNGS: Respiratory rate normal; distant breath sound. ABDOMEN: Soft, nontender, liver spleen not palpable, no masses palpable. PSYCH: Alert and oriented x3; mood and affect normal. MUSCULOSKELETAL:No Clubbing/cyanosis;muscles-grossly intact, evidence of OA NEUROLOGICAL: Slurred speech. Bun and sensation grossly intact. LYMPHATICS: No lymph nodes palpable in the axilla and neck INVESTIGATIONS, reviewed in the clinical context: White count was 5 hemoglobin 11.6 platelets 219 BUN 25 creatinine 0.90 Troponin I 0.334, 0.335 LDL 76 EKG tracing personally reviewed by me-nonspecific T-wave changes. Sinus rhythm CT brain: Mild atrophic CT angiography of the brain: Nonspecific 2-D echocardiogram: EF 55-60%, severe LVH Assessment and plan: -Acute stroke suspected to be embolic from underlying paroxysmal atrial fibrillation, not on anticoagulation. Neurology consult. Aspirin. -Paroxysmal atrial fibrillation Patient has been off Coumadin because of vaginal bleeding. -Morbid obesity BMI 57.8 Weight loss measures -GERD Prilosec 20 mg -Hypertensive heart disease On beta vel -Essential hypertension Coreg 25 mg twice a day, Cardizem LA 180 mg a day -Chronic urinary stress incontinence Ditropan XL 10 mg a day -Hypothyroid Synthroid 200 g a day -Chronic gait dysfunction Uses a cane/walker at baseline -Troponin leak, likely from hemodynamic mismatch. No cardiac disease symptoms. Cardiology consulted Resume home medications. Aspirin. Speech therapy. PTOT. Consultation to cardiology and neurology. Subcu Lovenox. Anticoagulation as per neurology. Past Medical History Past Medical History: Atrial Fibrillation, Cancer, Diabetes Mellitus, GERD/Reflux, Hypertension, Thyroid Disorder Additional Past Medical History / Comment(s): Pt states she has had intermittent vaginal bleeding over past one year, NIDDM type II, UTIs, hypothyroid, chronic low back pain, occasional bilateral leg pain at night. Ovarian cancer with chemo and radiation. History of Any Multi-Drug Resistant Organisms: None Reported Past Surgical History: Heart Catheterization, Tonsillectomy, Uterine Ablation Additional Past Surgical History / Comment(s): Nasal fracture with surgery, wisdom teeth extractions. Past Anesthesia/Blood Transfusion Reactions: Postoperative Nausea & Vomiting (PONV) Additional Past Anesthesia/Blood Transfusion Reaction / Comment(s): Pt received blood this hospitalization without reaction. Past Psychological History: Depression Additional Psychological History / Comment(s): Pt resides alone in an apartment. She uses a walker or cane. She drives. Smoking Status: Former smoker Past Alcohol Use History: None Reported Additional Past Alcohol Use History / Comment(s): PT started smoking as a teen and quit in 1994. Past Drug Use History: None Reported - Past Family History Father Family Medical History: Cancer Additional Family Medical History / Comment(s): Father of lung cancer. He was a smoker. Mother Family Medical History: Vascular Disorder Additional Family Medical History / Comment(s): Mother of a cerebral aneurysm at the age of 58 yrs. Medications and Allergies Home Medications Medication Instructions Recorded Confirmed Type Gabapentin [Neurontin] 100 mg PO TID PRN 10/10/21 05/18/22 History Levothyroxine Sodium 200 mcg PO DAILY 10/10/21 05/18/22 History Nitroglycerin Sl Tabs [Nitrostat] 0.4 mg SL Q5M PRN 10/10/21 05/18/22 History Nystatin 100,000Unit/gm Cream 1 applic TOPICAL BID PRN 10/10/21 05/18/22 History [Mycostatin Cream] HYDROcodone/APAP 7.5-325MG [[place] 1 tab PO Q6HR PRN 3 Days #12 tab 10/23/21 05/18/22 Rx 7.5-325] Acetaminophen Tab [Tylenol Tab] 1,000 mg PO Q6H PRN 05/18/22 05/18/22 History Acetaminophen/Diphenhydramine 2 tab PO HS 05/18/22 05/18/22 History [Tylenol PM 500-25mg] Ibuprofen [Motrin Ib] 200 - 400 mg PO Q6H PRN 05/18/22 05/18/22 History Omeprazole Magnesium [PriLOSEC OTC] 20 mg PO Q48H 05/18/22 05/18/22 History Oxybutynin ER [Ditropan Xl] 10 mg PO DAILY 05/18/22 05/18/22 History Warfarin Sodium 6 mg PO HS 05/18/22 05/18/22 History carvediloL [Coreg] 25 mg PO BID 05/18/22 05/18/22 History dilTIAZem HCL [Cardizem LA] 180 mg PO DAILY 05/18/22 05/18/22 History metFORMIN HCL ER [Glucophage XR] 500 mg PO TID-W/MEALS 05/18/22 05/18/22 History Allergies Allergy/AdvReac Type Severity Reaction Status Date / Time apixaban [From Eliquis] AdvReac Unsure, Verified 05/18/22 19:08 told by Regional Medical Director not to take Physical Exam Vitals: Vital Signs Temp Pulse Pulse Resp BP BP Pulse Ox 05/19/22 10:34 112 H 16 103/64 94 L 05/19/22 08:00 98.3 F 70 17 120/66 97 05/19/22 03:05 98.9 F 72 18 118/71 97 05/18/22 23:35 76 18 158/72 97 05/18/22 20:55 98.4 F 75 18 131/64 95 05/18/22 19:49 98.4 F 82 18 113/74 96 05/18/22 19:00 81 18 113/86 05/18/22 18:00 76 20 113/86 94 L 05/18/22 17:00 78 18 137/86 98 05/18/22 16:38 80 18 137/70 98 05/18/22 14:54 78 18 122/78 98 05/18/22 11:49 98.9 F 81 18 125/70 98 Intake and Output 05/18/22 05/19/22 05/19/22 22:59 06:59 14:59 Other: Voiding Method Bedpan Bedpan Bedpan Diaper Diaper Diaper # Voids 1 1 Weight 162.386 kg Results CBC & Chem 7: 05/18/22 13:11 05/18/22 14:48 Labs: Abnormal Lab Results - Last 24 Hours (Table) 05/18/22 05/18/22 05/18/22 Range/Units 13:11 13:11 13:11 WBC 12.5 H (3.8-10.6) k/uL RDW 16.3 H (11.5-15.5) % Neutrophils # (Manual) 12.10 H (1.3-7.7) k/uL Metamyelocytes # (Man) 0.13 H (0) k/uL Myelocytes # (Manual) 0.13 H (0) k/uL Sodium (137-145) mmol/L Chloride 113 H (98-107) mmol/L Carbon Dioxide 18 L (22-30) mmol/L BUN 25 H (7-17) mg/dL Creatinine (0.52-1.04) mg/dL Glucose 199 H (74-99) mg/dL POC Glucose (mg/dL) (70-110) mg/dL Calcium 6.6 L (8.4-10.2) mg/dL Phosphorus 2.1 L (2.5-4.5) mg/dL Magnesium 1.1 L (1.6-2.3) mg/dL AST 11 L (14-36) U/L Troponin I 0.334 H* (0.000-0.034) ng/mL Total Protein 4.6 L (6.3-8.2) g/dL Albumin 2.2 L (3.5-5.0) g/dL Triglycerides (0.00-149.00) mg/dL VLDL Cholesterol, Calc (5.00-40.00) mg/dL HDL Cholesterol (40.00-60.00) mg/dL 05/18/22 05/18/22 05/18/22 Range/Units 13:11 14:48 18:46 WBC (3.8-10.6) k/uL RDW (11.5-15.5) % Neutrophils # (Manual) (1.3-7.7) k/uL Metamyelocytes # (Man) (0) k/uL Myelocytes # (Manual) (0) k/uL Sodium 135 L (137-145) mmol/L Chloride (98-107) mmol/L Carbon Dioxide 20 L (22-30) mmol/L BUN 30 H (7-17) mg/dL Creatinine 1.11 H (0.52-1.04) mg/dL Glucose 242 H (74-99) mg/dL POC Glucose (mg/dL) (70-110) mg/dL Calcium (8.4-10.2) mg/dL Phosphorus (2.5-4.5) mg/dL Magnesium (1.6-2.3) mg/dL AST (14-36) U/L Troponin I 0.335 H* (0.000-0.034) ng/mL Total Protein 5.6 L (6.3-8.2) g/dL Albumin 2.9 L (3.5-5.0) g/dL Triglycerides 221.00 H (0.00-149.00) mg/dL VLDL Cholesterol, Calc 44.20 H (5.00-40.00) mg/dL HDL Cholesterol 26.60 L (40.00-60.00) mg/dL 05/18/22 05/18/22 05/19/22 Range/Units 22:12 23:52 06:26 WBC (3.8-10.6) k/uL RDW (11.5-15.5) % Neutrophils # (Manual) (1.3-7.7) k/uL Metamyelocytes # (Man) (0) k/uL Myelocytes # (Manual) (0) k/uL Sodium (137-145) mmol/L Chloride (98-107) mmol/L Carbon Dioxide (22-30) mmol/L BUN (7-17) mg/dL Creatinine (0.52-1.04) mg/dL Glucose (74-99) mg/dL POC Glucose (mg/dL) 262 H 228 H (70-110) mg/dL Calcium (8.4-10.2) mg/dL Phosphorus (2.5-4.5) mg/dL Magnesium (1.6-2.3) mg/dL AST (14-36) U/L Troponin I 0.301 H* (0.000-0.034) ng/mL Total Protein (6.3-8.2) g/dL Albumin (3.5-5.0) g/dL Triglycerides (0.00-149.00) mg/dL VLDL Cholesterol, Calc (5.00-40.00) mg/dL HDL Cholesterol (40.00-60.00) mg/dL Thrombosis Risk Factor Assmnt - Choose All That Apply Each Factor Represents 1 point: Obesity (BMI >25) Each Risk Factor Represents 2 Points: Age 61-74 years Thrombosis Risk Factor Assessment Total Risk Factor Score: 3 Thrombosis Risk Factor Assessment Level: Moderate Risk
[2022-05-19 16:48] LABS: Glucose,Whole Blood 209 mg/dL (70-110)
[2022-05-19] MEDS: HEPARIN SODIUM,PORCINE/PF 5,000 UNIT/0.5 ML SYRINGE SQ SCH ×2 (17:07→23:20)
[2022-05-19 17:18] LABS: Magnesium 1.6 mg/dL (1.6-2.3); Phosphorus 2.5 mg/dL (2.5-4.5)
[2022-05-19] MEDS: ACETAMINOPHEN TAB 500 MG TAB PO SCH (19:53)
[2022-05-19] MEDS: diphenhydrAMINE 25 MG CAP PO SCH (19:54)
[2022-05-19] MEDS: ATORVASTATIN 40 MG TAB PO SCH (19:54)
[2022-05-19 20:32] LABS: Glucose,Whole Blood 243 mg/dL (70-110)
--- NOTE | 2022-05-19 21:00 | P.CONS ---
History of Present Illness - Reason for Consult Consult date: 05/19/22 Ovarian Cancer, CVA, Vaginal Bleeding Requesting physician: Juaquin Chase - History of Present Illness ndometrial Carcinoma Follow Up Visit HPI : This is a very nice lady who was initially evaluated at [facility] when she was admitted with significant vaginal bleeding,in September/2021 She reported having vaginal spotting for about a year,which became worse. 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 CT scan of abdomen/pelvis,chest and bone scan did not reveal any evidence of metastatic disease. She was discharged from the hospital and was evaluated by Dr Dixon and felt not to be a surgical candidate due to her significant co-morbidities and the recommendation was for 3 cycles of carboplatin/taxol followed by radiation and 3 additional cycles of carboplatin/taxol.. She started weekly taxol/carboplatin (weekly schedule chosen due to concern about tolerance with higher dose) on 11/22/2021 and completed 3 cycles on 01/17/2022 and completed radiation on 03/14/2022 She went back on weekly carbo/taxol on 04/03/2022 She is status post cycle 6 day 1 of Carbo and Taxol on 05/16/22 Review of Systems All systems: negative Constitutional: Reports as per HPI Past Medical History Past Medical History: Atrial Fibrillation, Cancer, Diabetes Mellitus, GERD/Reflux, Hypertension, Thyroid Disorder Additional Past Medical History / Comment(s): Pt states she has had intermittent vaginal bleeding over past one year, NIDDM type II, UTIs, hypothyroid, chronic low back pain, occasional bilateral leg pain at night. Ovarian cancer with chemo and radiation. History of Any Multi-Drug Resistant Organisms: None Reported Past Surgical History: Heart Catheterization, Tonsillectomy, Uterine Ablation Additional Past Surgical History / Comment(s): Nasal fracture with surgery, wisdom teeth extractions. Past Anesthesia/Blood Transfusion Reactions: Postoperative Nausea & Vomiting (PONV) Additional Past Anesthesia/Blood Transfusion Reaction / Comm: Pt received blood this hospitalization without reaction. Past Psychological History: Depression Additional Psychological History / Comment(s): Pt resides alone in an apartment. She uses a walker or cane. She drives. Smoking Status: Former smoker Past Alcohol Use History: None Reported Additional Past Alcohol Use History / Comment(s): PT started smoking as a teen and quit in 1994. Past Drug Use History: None Reported - Past Family History Father Family Medical History: Cancer Additional Family Medical History / Comment(s): Father of lung cancer. He was a smoker. Mother Family Medical History: Vascular Disorder Additional Family Medical History / Comment(s): Mother of a cerebral aneurysm at the age of 58 yrs. Medications and Allergies Home Medications Medication Instructions Recorded Confirmed Type Gabapentin [Neurontin] 100 mg PO TID PRN 10/10/21 05/18/22 History Levothyroxine Sodium 200 mcg PO DAILY 10/10/21 05/18/22 History Nitroglycerin Sl Tabs [Nitrostat] 0.4 mg SL Q5M PRN 10/10/21 05/18/22 History Nystatin 100,000Unit/gm Cream 1 applic TOPICAL BID PRN 10/10/21 05/18/22 History [Mycostatin Cream] HYDROcodone/APAP 7.5-325MG [[place] 1 tab PO Q6HR PRN 3 Days #12 tab 10/23/21 05/18/22 Rx 7.5-325] Acetaminophen Tab [Tylenol Tab] 1,000 mg PO Q6H PRN 05/18/22 05/18/22 History Acetaminophen/Diphenhydramine 2 tab PO HS 05/18/22 05/18/22 History [Tylenol PM 500-25mg] Ibuprofen [Motrin Ib] 200 - 400 mg PO Q6H PRN 05/18/22 05/18/22 History Omeprazole Magnesium [PriLOSEC OTC] 20 mg PO Q48H 05/18/22 05/18/22 History Oxybutynin ER [Ditropan Xl] 10 mg PO DAILY 05/18/22 05/18/22 History Warfarin Sodium 6 mg PO HS 05/18/22 05/18/22 History carvediloL [Coreg] 25 mg PO BID 05/18/22 05/18/22 History dilTIAZem HCL [Cardizem LA] 180 mg PO DAILY 05/18/22 05/18/22 History metFORMIN HCL ER [Glucophage XR] 500 mg PO TID-W/MEALS 05/18/22 05/18/22 History Allergies Allergy/AdvReac Type Severity Reaction Status Date / Time apixaban [From Eliquis] AdvReac Unsure, Verified 05/18/22 19:08 told by Document Photographer not to take Physical Exam Vitals: Vital Signs Temp Pulse Pulse Resp BP BP Pulse Ox 05/19/22 12:00 99.5 F 108 H 17 103/60 96 05/19/22 10:34 112 H 16 103/64 94 L 05/19/22 08:00 98.3 F 70 17 120/66 97 05/19/22 03:05 98.9 F 72 18 118/71 97 05/18/22 23:35 76 18 158/72 97 05/18/22 20:55 98.4 F 75 18 131/64 95 05/18/22 19:49 98.4 F 82 18 113/74 96 05/18/22 19:00 81 18 113/86 05/18/22 18:00 76 20 113/86 94 L 05/18/22 17:00 78 18 137/86 98 05/18/22 16:38 80 18 137/70 98 Intake and Output 05/19/22 05/19/22 05/19/22 06:59 14:59 22:59 Other: Voiding Method Bedpan Bedpan Diaper Diaper # Voids 1 1 Weight 162.386 kg - Constitutional General appearance: cooperative - EENT Eyes: EOMI ENT: NA/AT - Neck Neck: normal ROM - Cardiovascular Rhythm: regularly irregular - Gastrointestinal General gastrointestinal: distended, soft - Integumentary Labile excoriation Integumentary: pale - Musculoskeletal Musculoskeletal: generalized weakness Results CBC & Chem 7: 05/18/22 13:11 05/18/22 14:48 Labs: Abnormal Lab Results - Last 24 Hours (Table) 05/18/22 05/18/22 05/18/22 Range/Units 13:11 13:11 14:48 Sodium 135 L (137-145) mmol/L Carbon Dioxide 20 L (22-30) mmol/L BUN 30 H (7-17) mg/dL Creatinine 1.11 H (0.52-1.04) mg/dL Glucose 242 H (74-99) mg/dL POC Glucose (mg/dL) (70-110) mg/dL Troponin I 0.334 H* (0.000-0.034) ng/mL Total Protein 5.6 L (6.3-8.2) g/dL Albumin 2.9 L (3.5-5.0) g/dL Triglycerides 221.00 H (0.00-149.00) mg/dL VLDL Cholesterol, Calc 44.20 H (5.00-40.00) mg/dL HDL Cholesterol 26.60 L (40.00-60.00) mg/dL 05/18/22 05/18/22 05/18/22 Range/Units 18:46 22:12 23:52 Sodium (137-145) mmol/L Carbon Dioxide (22-30) mmol/L BUN (7-17) mg/dL Creatinine (0.52-1.04) mg/dL Glucose (74-99) mg/dL POC Glucose (mg/dL) 262 H (70-110) mg/dL Troponin I 0.335 H* 0.301 H* (0.000-0.034) ng/mL Total Protein (6.3-8.2) g/dL Albumin (3.5-5.0) g/dL Triglycerides (0.00-149.00) mg/dL VLDL Cholesterol, Calc (5.00-40.00) mg/dL HDL Cholesterol (40.00-60.00) mg/dL 05/19/22 Range/Units 06:26 Sodium (137-145) mmol/L Carbon Dioxide (22-30) mmol/L BUN (7-17) mg/dL Creatinine (0.52-1.04) mg/dL Glucose (74-99) mg/dL POC Glucose (mg/dL) 228 H (70-110) mg/dL Troponin I (0.000-0.034) ng/mL Total Protein (6.3-8.2) g/dL Albumin (3.5-5.0) g/dL Triglycerides (0.00-149.00) mg/dL VLDL Cholesterol, Calc (5.00-40.00) mg/dL HDL Cholesterol (40.00-60.00) mg/dL Assessment and Plan Plan: Acute CVA: - Neurology Follow Uterine Carcinosarcoma: - Status post Frankie-adjuvant Cycle 6 Day One of Carbo, Taxol (Receives weekly [id number]) - She is status post Frankie-adjuvant pelvic radiation completed on 03/14/22 - Hold chemotherapy at this time Vaginal bleeding resulting in stopping AC therapy, no known vaginal bleeding since completion of radiation Will ask radiation oncology if any other contraindications or recommendations if recurrent bleeding once AC restarted
--- NOTE | 2022-05-19 23:06 | XR ---
EXAMINATION TYPE: XR chest 1V portable DATE OF EXAM: 05/19/2022 COMPARISON: NONE HISTORY: Aspiration pneumonia TECHNIQUE: Single view FINDINGS: Heart is enlarged. There is some coarsening of interstitial markings. No pulmonary consolid ation. No obvious heart failure. No pleural effusion. IMPRESSION: Cardiomegaly. Coarse lung markings without consolidation or obvious heart failure.
[2022-05-20 06:18] LABS: Glucose,Whole Blood 243 mg/dL (70-110)
[2022-05-20] MEDS: carvediloL 6.25 MG TAB PO SCH ×2 (06:42→15:07)
[2022-05-20] MEDS: metFORMIN 500 MG TAB PO SCH ×3 (06:42→17:19)
[2022-05-20] MEDS: LEVOTHYROXINE 100 MCG TAB PO SCH (06:42)
[2022-05-20] MEDS: INSULIN ASPART (NovoLOG) 100 UNIT/ML VIAL SQ SCH ×4 (06:43→21:49)
[2022-05-20 08:15] LABS: Anisocytosis Slight; Basophils % (A) 0 %; Eosinophils % (A) 0 %; HCT 30.8 % (34.0-46.0); Hypochromasia Slight; Lymphocytes # (A) 0.1 k/uL (1.0-4.8); Lymphocytes % (A) 1 %; MCH 30.8 pg (25.0-35.0); MCHC 32.6 g/dL (31.0-37.0); MCV 94.3 fL (80.0-100.0); Mean Platelet Volume 8.5; Monocytes # (A) 0.1 k/uL (0-1.0); Monocytes % (A) 2 %; Neutrophils # (A) 7.5 k/uL (1.3-7.7); Neutrophils % (A) 96 %; Platelet Count 197 k/uL (150-450); RBC 3.27 m/uL (3.80-5.40); RDW 16.4 % (11.5-15.5); WBC 7.9 k/uL (3.8-10.6)
[2022-05-20 09:03] LABS: Albumin 2.7 g/dL (3.5-5.0); Calcium 8.4 mg/dL (8.4-10.2); Magnesium 1.6 mg/dL (1.6-2.3); Phosphorus 2.9 mg/dL (2.5-4.5); Potassium 4.2 mmol/L (3.5-5.1); Total Bilirubin 0.8 mg/dL (0.2-1.3); Total Protein 5.4 g/dL (6.3-8.2)
[2022-05-20] MEDS: HEPARIN SODIUM,PORCINE/PF 5,000 UNIT/0.5 ML SYRINGE SQ SCH ×3 (09:15→23:32)
[2022-05-20] MEDS: ASPIRIN 81 MG PO SCH (09:16)
[2022-05-20] MEDS: PANTOPRAZOLE 40 MG TABLET PO SCH (09:16)
[2022-05-20] MEDS: DILTIAZEM CD 180 MG CAP.ER.24H PO SCH (09:16)
[2022-05-20] MEDS: OXYBUTYNIN 10 MG TAB.ER.24 PO SCH (09:17)
[2022-05-20 11:53] LABS: Glucose,Whole Blood 218 mg/dL (70-110)
[2022-05-20] MEDS: DILTIAZEM 125 MG in SODIUM CHLORIDE 0.9% 100 ML IV SCH ×2 (12:05→23:30)
[2022-05-20 13:57] LABS: Cancer Antigen 125 11.9 U/mL (0.0-30.1)
--- NOTE | 2022-05-20 14:29 | P.PN ---
Progress Note - Text Progress Note Date: 05/20/22 Chief Complaint: Dysarthria This is a pleasant 61-year-old patient, follows with Dr. Smooth Bob. Chronic stable medical conditions include diabetes, GERD, essential hypertension, hypothyroid. Chronic low back pain. Ovarian cancer treatment for chemo and radiation treatment. Patient at baseline uses a walker and a cane. Patient presented to ER with some right foot numbness. In the ER patient developed dysarthria. Computed tomography scan brain was unremarkable.. Neurology consulted. Patient's INR was 1. Sinus rhythm. Neurology was consulted. No weakness in the arms and legs otherwise. No headache. No change in vision. This morning speech remains slurred. May 20: 2 bouts of vomiting. Some choking. Diet changed to applesauce with medications. Modified barium swallow ordered. Discussed with patient. Active Medications Acetaminophen (Acetaminophen Tab 500 Mg Tab) 1,000 mg PO Q6H PRN PRN Reason: Fever and/ or Pain Acetaminophen (Acetaminophen Tab 500 Mg Tab) 1,000 mg PO HS [facility] Last Admin: 05/19/22 19:53 Dose: 1,000 mg Hydrocodone Bitart/Acetaminophen (Hydrocodone/Apap 7.5-325mg 1 Each Tab) 1 each PO Q6HR PRN PRN Reason: Pain Aspirin (Aspirin 81 Mg) 81 mg PO DAILY [facility] Last Admin: 05/20/22 09:16 Dose: 81 mg Atorvastatin Calcium (Atorvastatin 40 Mg Tab) 40 mg PO HS [facility] Last Admin: 05/19/22 19:54 Dose: 40 mg Calcium Carbonate/Glycine (Calcium Carbonate 500 Mg Chewable) 1,000 mg PO ONCE PRN PRN Reason: Heartburn Carvedilol (Carvedilol 6.25 Mg Tab) 25 mg PO BID-W/MEALS [facility] Last Admin: 05/20/22 06:42 Dose: 25 mg Diltiazem HCl (Diltiazem Cd 180 Mg Cap.Er.24h) 180 mg PO DAILY [facility] Last Admin: 05/20/22 09:16 Dose: 180 mg Diphenhydramine HCl (Diphenhydramine 25 Mg Cap) 50 mg PO HS [facility] Last Admin: 05/19/22 19:54 Dose: 50 mg Heparin Sodium (Porcine) (Heparin Sodium,Porcine/Pf 5,000 Unit/0.5 Ml Syringe) 5,000 unit SQ Q8HR [facility] Last Admin: 05/20/22 09:15 Dose: 5,000 unit Diltiazem HCl 125 mg/ Sodium (Chloride) 125 mls @ 10 mls/hr IV .[id number] [facility] Last Admin: 05/20/22 12:05 Dose: Not Given Ibuprofen (Ibuprofen 200 Mg Tab) 200 mg PO Q6H PRN PRN Reason: Fever and/ or Pain Insulin Aspart (Insulin Aspart (Novolog) 100 Unit/Ml Vial) 0 unit SQ ACHS [facility]; Protocol Last Admin: 05/20/22 12:09 Dose: 7 unit Levothyroxine Sodium (Levothyroxine 100 Mcg Tab) 200 mcg PO DAILY@0630 [facility] Last Admin: 05/20/22 06:42 Dose: 200 mcg Metformin HCl (Metformin 500 Mg Tab) 500 mg PO TID-W/MEALS [facility] Last Admin: 05/20/22 12:10 Dose: 500 mg Nitroglycerin (Nitroglycerin Sl Tabs 0.4 Mg Tab) 0.4 mg SUBLINGUAL Q5M PRN PRN Reason: Chest Pain Nystatin (Nystatin 100,000unit/Gm Cream 30 Gm Tube) 1 applic TOPICAL BID PRN; Protocol PRN Reason: Rash Oxybutynin Chloride (Oxybutynin 10 Mg Tab.Er.24) 10 mg PO DAILY [facility] Last Admin: 05/20/22 09:17 Dose: 10 mg Pantoprazole Sodium (Pantoprazole 40 Mg Tablet) 40 mg PO Q48H [facility] Last Admin: 05/20/22 09:16 Dose: 40 mg Past medical history to include: Atrial fibrillation, diabetes, GERD, hypertension, hypothyroid, ovarian cancer with chemo and radiation treatment. Depression. Social history: Lives alone in an apartment. Does use a walker and cane. Patient started smoking as a teenager and stopped in 1994. No alcohol. Family history: Father of lung cancer Physical examination: VITAL SIGNS: 98.3, 64, 16, 169/79, 98% room air GENERAL: laying in bed awake. EYES: Pupils equal. Conjunctiva normal. HEENT: External appearance of nose and ears normal, oral cavity grossly normal. NECK: JVD unable to assess; masses not palpable. HEART: First and second heart sounds are normal; no edema. LUNGS: Respiratory rate normal; distant breath sound. ABDOMEN: Soft, nontender, liver spleen not palpable, no masses palpable. PSYCH: Alert and oriented x3; mood and affect normal. MUSCULOSKELETAL:No Clubbing/cyanosis;muscles-grossly intact, evidence of OA NEUROLOGICAL: Slurred speech. Power and sensation grossly intact. INVESTIGATIONS, reviewed in the clinical context: May 20: White count 7.9 hemoglobin 10 potassium 4.2 creatinine 1.02 White count was 5 hemoglobin 11.6 platelets 219 BUN 25 creatinine 0.90 Troponin I 0.334, 0.335 LDL 76 EKG tracing personally reviewed by me-nonspecific T-wave changes. Sinus rhythm CT brain: Mild atrophic CT angiography of the brain: Nonspecific 2-D echocardiogram: EF 55-60%, severe LVH Assessment and plan: -Acute stroke suspected to be embolic from underlying paroxysmal atrial fibrillation, not on anticoagulation. Neurology consult. Aspirin. -Paroxysmal atrial fibrillation: Currently sinus rhythm Patient has been off Coumadin because of vaginal bleeding. -Morbid obesity BMI 57.8 Weight loss measures -GERD Prilosec 20 mg -Hypertensive heart disease On beta vel -Essential hypertension Coreg 25 mg twice a day, Cardizem LA 180 mg a day -Chronic urinary stress incontinence Ditropan XL 10 mg a day -Hypothyroid Synthroid 200 g a day -Chronic gait dysfunction Uses a cane/walker at baseline -Troponin leak, likely from hemodynamic mismatch. No cardiac disease symptoms. Cardiology consulted Continue current medications. Modified barium swallow ordered. Diet applesauce of medications. Discussed with patient.
[2022-05-20] MEDS ORDERED: ONDANSETRON 4 MG/2 ML VIAL IVP PRN (14:39)
--- NOTE | 2022-05-20 16:08 | P.PN ---
Subjective Progress Note Date: 05/20/22 The patient is seen at bedside I spoke with patient's nurse and she notified me that patient is doing better from neurological perspective and felt her speech and hand airplane fueler is better. Patient feels about same to me. Objective - Vital Signs Vital signs: Vital Signs Temp 98.3 F 05/20/22 04:10 Pulse 75 05/20/22 15:11 Resp 16 05/20/22 15:11 BP 153/68 05/20/22 15:11 Pulse Ox 97 05/20/22 15:11 FiO2 Intake & Output 05/19/22 05/20/22 05/20/22 18:59 06:59 18:59 Intake Total 92.833 180 Balance 92.833 180 Weight 164.5 kg Intake: Intake, IV Titration 92.833 Amount Diltiazem 125 mg In 92.833 Sodium Chloride 0.9% 100 ml @ 10 MG/HR 10 mls/hr IV .[id number] [facility] Rx#: [id number] Oral 180 Other: Voiding Method Bedpan Bedpan Bedpan Diaper Diaper Diaper # Voids 1 1 - Exam GENERAL: The patient is a morbid obese woman, lying in bed and is not in acute distress. NEUROLOGICAL: Higher mental function: The patient is awake, alert, oriented to self, place and time. Patient is following commands. Has expressive aphasia. Intact repitition. No neglect. Cranial nerves: The pupils are round, equal and reactive to light. Visual palma are full to confrontation throughout. Extraocular movement is intact no nystagmus is noted. Facial sensation is normal to touch throughout. Mild right lower facial droop. Tongue is midline and moved [id number] without any di fficulty. Mild dysarthria is noted. Shoulder shrug is normal bilaterally. Motor: The strength is 5 over 5 throughout uppers and lifting lowers above gravity without focality (has edema in lowers). Normal tone and bulk. Cerebellum: Normal finger to nose bilaterally. Sensation: Sensation is normal to touch throughout. Reflexes (right/left):1+ throughout. Plantars are mute bilaterally. Some other workup in our facility during this hospital visit consisted of: Lipid panel: TG 221, Cholestrol 147, LDL 76, HDL: 26.6 CT of the head is reported as mild atrophy. No acute intercranial abnormality. I personally reviewed the CT of the head and I agree with the finding. EKG angiography of the head and neck was reported as no evidence of hemodynamic arterial stenosis in the brain and neck. No aneurysm. Limited exam. Patient had slightly elevated troponin of 0.334. Initial serum glucose 199. Lipid panel is triglyceride 221, cholesterol 147, LDL 76 and HDL 26. 2D echo: Severe left ventricular hypertrophy. Normal left ventricular EF 55-60% - Labs CBC & Chem 7: 05/20/22 07:52 05/20/22 07:52 Labs: Abnormal Lab Results - Last 24 Hours (Table) 05/19/22 05/19/22 05/20/22 Range/Units 16:46 20:31 06:18 RBC (3.80-5.40) m/uL Hgb (11.4-16.0) gm/dL Hct (34.0-46.0) % RDW (11.5-15.5) % Lymphocytes # (1.0-4.8) k/uL Sodium (137-145) mmol/L BUN (7-17) mg/dL Glucose (74-99) mg/dL POC Glucose (mg/dL) 209 H 243 H 243 H (70-110) mg/dL AST (14-36) U/L Total Protein (6.3-8.2) g/dL Albumin (3.5-5.0) g/dL 05/20/22 05/20/22 05/20/22 Range/Units 07:52 07:52 11:52 RBC 3.27 L (3.80-5.40) m/uL Hgb 10.0 L D (11.4-16.0) gm/dL Hct 30.8 L (34.0-46.0) % RDW 16.4 H (11.5-15.5) % Lymphocytes # 0.1 L (1.0-4.8) k/uL Sodium 133 L (137-145) mmol/L BUN 27 H (7-17) mg/dL Glucose 221 H (74-99) mg/dL POC Glucose (mg/dL) 218 H (70-110) mg/dL AST 12 L (14-36) U/L Total Protein 5.4 L (6.3-8.2) g/dL Albumin 2.7 L (3.5-5.0) g/dL Assessment and Plan Assessment: Acute CVA (right foot numbness for past couple days. In our facility has right facial droop, expressive aphasia). Likely cardioembolic (atrial fibrillation and not on anticoagulation) Elevated troponin Atrial fibrillation not on any anticoagulation because of vaginal bleeding (off Coumadin for past 6 months) Ovarian cancer post chemotherapy and radiation therapy Vaginal/uterine bleeding History of coronary artery disease Hypertension Hyperlipidemia Diabetes mellitus Plan: Cardiology started aspirin 81 mg which is I agree (was not on any home antiplatelets). If possible we can do dual antiplatelet of aspirin 81 and Plavix 75 but if the risk of bleeding is high due to the vaginal uterine ble eding we'll hold off and continue aspirin 81mg. I started the patient on Lipitor 40 mg daily at bedtime for secondary stroke prophylaxis. We'll hold off on using anticoagulation because of recent stroke and second because of patient history of vaginal uterine bleeding and risk outweigh the benefit. But if down line anticoagulation was felt safe then can resume. MRI the brain: pending. Continue her checks Continue cardiac monitoring PT OT and MEN'S SWIM COACH are consulted Cardiology team is consulted. Oncology is consulted. Will defer the rest of medical management to primary team. For DVT prophylaxis: On subq heparin 5000U every 8 hours. The plan is discussed with patient and her nurse. Dr. Torres will start neurology service tomorrow AM. Juaquin Chase M.D. Neuro-Hospitalist Time with Patient: Less than 30
[2022-05-20 16:30] LABS: Glucose,Whole Blood 218 mg/dL (70-110)
--- NOTE | 2022-05-20 18:51 | P.PN ---
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 She actually presented first for numbness of her right foot however in the ER started developing dysarthria with slurred speech. She does have some expressive aphasia and CAT scan was performed of the brain which showed no acute pathology mild atrophy. She does have a history of atrial fibrillation however apparently had significant vaginal bleeding and therefore has been off of Coumadin for the last 6 months. Her INR was noted to be normal at 1.0. She states she follows with a patrol officer summer around the [facility] location. She does have a history of [facility] and she was told her body "had its own bypasses" likely consistent with HEMATOLOGY TECHNICIAN. She denies any significant chest pain or pressure. Appears no TPA was given given low NIH score. She states she has 2 more rounds of chemo for her uterine cancer. She denies any current vaginal bleeding. She did have a screening CT abdomen and pelvis performed 05/17/2022 which did not show any significant recurrence however somewhat limited exam and also noted coronary artery calcifications. Blood work shows white blood cell count 12.5, hemoglobin 11.6, bicarb 18, creatinine 0.9, calcium 6.6, troponin 0.33, 0.33, 0.30, albumin 2.9, BUN 30, creatinine 1.1, magnesium 1.1. EKG shows sinus rhythm with PACs and nonspecific T-wave flattening in 1 and aVL. 05/20 Patient seen and examined. Patient still feels confused. Still has some expressive aphasia. Denies any chest pain or pressure. She was placed on aspirin. Echocardiogram shows preserved EF with severe LVH. PHYSICAL EXAMINATION Vital signs reviewed. CONSTITUTIONAL: No apparent distress, +expressive aphasia, +dysarthria and mild facial droop, obese HEENT: Head is normocephalic. Pupils are equal, round. Sclerae anicteric. Mucous membranes of the mouth are moist. No JVD. No carotid bruit. CHEST EXAMINATION: Lungs are clear to auscultation. No chest wall tenderness is noted on palpation or with deep breathing. HEART EXAMINATION: Regular rate and rhythm. S1, S2 heard. No murmurs, gallops or rub. ABDOMEN: Soft, nontender. Positive bowel sounds. EXTREMITIES: 2+ peripheral pulses, no lower extremity edema and no calf tenderness. NEUROLOGIC EXAMINATION: Patient is awake, alert and oriented x3. ASSESSMENT 1. Acute stroke likely related to A. fib not on any anticoagulation 2. Paroxysmal atrial fibrillation currently sinus rhythm 3. Non-STEMI do not suspect a type I mechanism, likely type II mechanism rel ated to stroke vs chronically elevated troponins 4. Reported history of CAD with likely HEMATOLOGY TECHNICIAN 5. Hypertension 6. Diabetes mellitus type 2 7. Uterine cancer undergoing chemotherapy with prior significant vaginal bleeding. Previously taken off of Coumadin approximate 6 months ago PLAN Stroke likely related to A. fib. She was placed on aspirin. She does have a history of vaginal bleeding. Neurology considering dual antiplatelets however risk of bleeding or with dual antiplatelets then a NOAC. Would recommend NOAC above antiplatelets as A. fib most likely cause of her stroke. If vaginal b leeding recurs may discontinue. Continue to evaluate risks and benefits. Check coverage for NOAC. Objective - Vital Signs Vital signs: Vital Signs Temp 98.3 F 05/20/22 04:10 Pulse 75 05/20/22 15:11 Resp 16 05/20/22 15:11 BP 153/68 05/20/22 15:11 Pulse Ox 97 05/20/22 15:11 FiO2 Intake & Output 05/19/22 05/20/22 05/20/22 18:59 06:59 18:59 Intake Total 92.833 180 Balance 92.833 180 Weight 164.5 kg Intake: Intake, IV Titration 92.833 Amount Diltiazem 125 mg In 92.833 Sodium Chloride 0.9% 100 ml @ 10 MG/HR 10 mls/hr IV .[id number] [facility] Rx#: [id number] Oral 180 Other: Voiding Method Bedpan Bedpan Bedpan Diaper Diaper Diaper # Voids 1 1 1 - Labs CBC & Chem 7: 05/20/22 07:52 05/20/22 07:52 Labs: Abnormal Lab Results - Last 24 Hours (Table) 05/19/22 05/20/22 05/20/22 Range/Units 20:31 06:18 07:52 RBC 3.27 L (3.80-5.40) m/uL Hgb 10.0 L D (11.4-16.0) gm/dL Hct 30.8 L (34.0-46.0) % RDW 16.4 H (11.5-15.5) % Lymphocytes # 0.1 L (1.0-4.8) k/uL Sodium (137-145) mmol/L BUN (7-17) mg/dL Glucose (74-99) mg/dL POC Glucose (mg/dL) 243 H 243 H (70-110) mg/dL AST (14-36) U/L Total Protein (6.3-8.2) g/dL Albumin (3.5-5.0) g/dL 05/20/22 05/20/22 05/20/22 Range/Units 07:52 11:52 16:27 RBC (3.80-5.40) m/uL Hgb (11.4-16.0) gm/dL Hct (34.0-46.0) % RDW (11.5-15.5) % Lymphocytes # (1.0-4.8) k/uL Sodium 133 L (137-145) mmol/L BUN 27 H (7-17) mg/dL Glucose 221 H (74-99) mg/dL POC Glucose (mg/dL) 218 H 218 H (70-110) mg/dL AST 12 L (14-36) U/L Total Protein 5.4 L (6.3-8.2) g/dL Albumin 2.7 L (3.5-5.0) g/dL
[2022-05-20 20:20] LABS: Glucose,Whole Blood 187 mg/dL (70-110)
[2022-05-20] MEDS ORDERED: INSULIN ASPART (NovoLOG) 100 UNIT/ML VIAL SQ SCH (21:05)
[2022-05-20] MEDS: ACETAMINOPHEN TAB 500 MG TAB PO SCH (21:48)
[2022-05-20] MEDS: diphenhydrAMINE 25 MG CAP PO SCH (21:49)
[2022-05-20] MEDS: ATORVASTATIN 40 MG TAB PO SCH (21:49)
[2022-05-21 06:19] LABS: Glucose,Whole Blood 181 mg/dL (70-110)
[2022-05-21] MEDS: INSULIN ASPART (NovoLOG) 100 UNIT/ML VIAL SQ SCH ×4 (06:34→21:11)
[2022-05-21] MEDS: metFORMIN 500 MG TAB PO SCH ×3 (06:34→17:26)
[2022-05-21] MEDS: LEVOTHYROXINE 100 MCG TAB PO SCH (06:34)
[2022-05-21] MEDS: carvediloL 6.25 MG TAB PO SCH ×2 (06:34→17:24)
[2022-05-21] MEDS: HYDROcodone/APAP 7.5-325MG 1 EACH TAB PO PRN ×2 (09:41→17:24)
[2022-05-21] MEDS: DILTIAZEM CD 180 MG CAP.ER.24H PO SCH (09:42)
[2022-05-21] MEDS: OXYBUTYNIN 10 MG TAB.ER.24 PO SCH (09:42)
[2022-05-21] MEDS: ASPIRIN 81 MG PO SCH (09:42)
[2022-05-21] MEDS: HEPARIN SODIUM,PORCINE/PF 5,000 UNIT/0.5 ML SYRINGE SQ SCH ×2 (09:42→17:25)
[2022-05-21] MEDS: DILTIAZEM 125 MG in SODIUM CHLORIDE 0.9% 100 ML IV SCH (12:18)
[2022-05-21 12:26] LABS: Glucose,Whole Blood 224 mg/dL (70-110)
--- NOTE | 2022-05-21 14:37 | P.PN ---
Progress Note - Text Progress Note Date: 05/21/22 Chief Complaint: Dysarthria This is a pleasant 61-year-old patient, follows with Dr. Smooth Bob. Chronic stable medical conditions include diabetes, GERD, essential hypertension, hypothyroid. Chronic low back pain. Ovarian cancer treatment for chemo and radiation treatment. Patient at baseline uses a walker and a cane. Patient presented to ER with some right foot numbness. In the ER patient developed dysarthria. Computed tomography scan brain was unremarkable.. Neurology consulted. Patient's INR was 1. Sinus rhythm. Neurology was consulted. No weakness in the arms and legs otherwise. No headache. No change in vision. This morning speech remains slurred. May 20: 2 bouts of vomiting. Some choking. Diet changed to applesauce with medications. Modified barium swallow ordered. Discussed with patient. May 21: Speech therapy not available today hence modified barium swallow could not be done. Tolerating applesauce. Speech remains slurred. Active Medications Acetaminophen (Acetaminophen Tab 500 Mg Tab) 1,000 mg PO Q6H PRN PRN Reason: Fever and/ or Pain Acetaminophen (Acetaminophen Tab 500 Mg Tab) 1,000 mg PO HS [facility] Last Admin: 05/20/22 21:48 Dose: 1,000 mg Hydrocodone Bitart/Acetaminophen (Hydrocodone/Apap 7.5-325mg 1 Each Tab) 1 each PO Q6HR PRN PRN Reason: Pain Last Admin: 05/21/22 09:41 Dose: 1 each Aspirin (Aspirin 81 Mg) 81 mg PO DAILY [facility] Last Admin: 05/21/22 09:42 Dose: 81 mg Atorvastatin Calcium (Atorvastatin 40 Mg Tab) 40 mg PO HS [facility] Last Admin: 05/20/22 21:49 Dose: 40 mg Calcium Carbonate/Glycine (Calcium Carbonate 500 Mg Chewable) 1,000 mg PO ONCE PRN PRN Reason: Heartburn Carvedilol (Carvedilol 6.25 Mg Tab) 25 mg PO BID-W/MEALS [facility] Last Admin: 05/21/22 06:34 Dose: 25 mg Diltiazem HCl (Diltiazem Cd 180 Mg Cap.Er.24h) 180 mg PO DAILY [facility] Last Admin: 05/21/22 09:42 Dose: 180 mg Diphenhydramine HCl (Diphenhydramine 25 Mg Cap) 50 mg PO HS [facility] Last Admin: 05/20/22 21:49 Dose: 50 mg Heparin Sodium (Porcine) (Heparin Sodium,Porcine/Pf 5,000 Unit/0.5 Ml Syringe) 5,000 unit SQ Q8HR [facility] Last Admin: 05/21/22 09:42 Dose: 5,000 unit Diltiazem HCl 125 mg/ Sodium (Chloride) 125 mls @ 10 mls/hr IV .[id number] [facility] Last Admin: 05/21/22 12:18 Dose: Not Given Ibuprofen (Ibuprofen 200 Mg Tab) 200 mg PO Q6H PRN PRN Reason: Fever and/ or Pain Insulin Aspart (Insulin Aspart (Novolog) 100 Unit/Ml Vial) 0 unit SQ ACHS [facility]; Protocol Last Admin: 05/21/22 12:31 Dose: 7 unit Levothyroxine Sodium (Levothyroxine 100 Mcg Tab) 200 mcg PO DAILY@0630 [facility] Last Admin: 05/21/22 06:34 Dose: 200 mcg Metformin HCl (Metformin 500 Mg Tab) 500 mg PO TID-W/MEALS [facility] Last Admin: 05/21/22 12:31 Dose: 500 mg Nitroglycerin (Nitroglycerin Sl Tabs 0.4 Mg Tab) 0.4 mg SUBLINGUAL Q5M PRN PRN Reason: Chest Pain Nystatin (Nystatin 100,000unit/Gm Cream 30 Gm Tube) 1 applic TOPICAL BID PRN; Protocol PRN Reason: Rash Ondansetron HCl (Ondansetron 4 Mg/2 Ml Vial) 4 mg IVP Q6HR PRN PRN Reason: Nausea And Vomiting Last Admin: 05/20/22 15:06 Dose: 4 mg Oxybutynin Chloride (Oxybutynin 10 Mg Tab.Er.24) 10 mg PO DAILY [facility] Last Admin: 05/21/22 09:42 Dose: 10 mg Pantoprazole Sodium (Pantoprazole 40 Mg Tablet) 40 mg PO Q48H [facility] Last Admin: 05/20/22 09:16 Dose: 40 mg Past medical history to include: Atrial fibrillation, diabetes, GERD, hypertension, hypothyroid, ovarian cancer with chemo and radiation treatment. Depression. Social history: Lives alone in an apartment. Does use a walker and cane. Patient started smoking as a teenager and stopped in 1994. No alcohol. Family history: Father of lung cancer Physical examination: VITAL SIGNS: 98, 66, 16, 154-74, 97% room air GENERAL: laying in bed awake. Tired EYES: Pupils equal. Conjunctiva normal. HEENT: External appearance of nose and ears normal, oral cavity grossly normal. NECK: JVD unable to assess; masses not palpable. HEART: First and second heart sounds are normal; no edema. LUNGS: Respiratory rate normal; distant breath sound. ABDOMEN: Soft, nontender, liver spleen not palpable, no masses palpable. PSYCH: Alert and oriented x3; mood and affect normal. MUSCULOSKELETAL:No Clubbing/cyanosis;muscles-grossly intact, evidence of OA NEUROLOGICAL: Slurred speech. Power and sensation grossly intact. INVESTIGATIONS, reviewed in the clinical context: May 20: White count 7.9 hemoglobin 10 potassium 4.2 creatinine 1.02 White count was 5 hemoglobin 11.6 platelets 219 BUN 25 creatinine 0.90 Troponin I 0.334, 0.335 LDL 76 EKG tracing personally reviewed by me-nonspecific T-wave changes. Sinus rhythm CT brain: Mild atrophic CT angiography of the brain: Nonspecific 2-D echocardiogram: EF 55-60%, severe LVH Assessment and plan: -Acute stroke suspected to be embolic from underlying paroxysmal atrial fibrillation, Follow with Neurology . Aspirin. Lipitor -Paroxysmal atrial fibrillation: Currently sinus rhythm Patient has been off Coumadin because of vaginal bleeding. NOAC being considered by cardiology -Acute dysphagia from underlying stroke with some clinical aspiration Awaiting modified barium swallow.. Pured Diet -Morbid obesity BMI 57.8 Weight loss measures -GERD Prilosec 20 mg -Hypertensive heart disease On beta vel -Essential hypertension Coreg 25 mg twice a day, Cardizem LA 180 mg a day -Chronic urinary stress incontinence Ditropan XL 10 mg a day -Hypothyroid Synthroid 200 g a day -Chronic gait dysfunction Uses a cane/walker at baseline -Troponin leak, likely from hemodynamic mismatch. No cardiac disease symptoms. Cardiology consulted Continue current medications. And pured diet. Pending modified barium swallow.
--- NOTE | 2022-05-21 15:46 | P.PN ---
Subjective Progress Note Date: 05/21/22 Principal diagnosis: Carcinosarcoma of uterus, new CVA Review of cardiology note regarding DOAC, agree to move forward with AC therapy as since pelvic radiation vaginal bleeding has not recurred. we can continue with monitoring Iron studies and cbc closley to discontinue if concern presents. Objective - Vital Signs Vital signs: Vital Signs Temp 98 F 05/21/22 08:00 Pulse 68 05/21/22 12:00 Resp 16 05/21/22 12:00 BP 143/71 05/21/22 12:00 Pulse Ox 95 05/21/22 12:00 FiO2 Intake & Output 05/20/22 05/21/22 05/21/22 18:59 06:59 18:59 Intake Total 180 236 Balance 180 236 Intake: Oral 180 236 Other: Voiding Method Bedpan Bedpan Bedpan Diaper Diaper Diaper # Voids 1 2 - Exam - Constitutional General appearance: cooperative - EENT Eyes: EOMI ENT: NA/AT - Neck Neck: normal ROM - Cardiovascular Rhythm: regularly irregular - Gastrointestinal General gastrointestinal: distended, soft - Integumentary Labile excoriation Integumentary: pale - Musculoskeletal Musculoskeletal: generalized weakness Slurred unilateral - Labs CBC & Chem 7: 05/22/22 07:00 05/20/22 07:52 Labs: Abnormal Lab Results - Last 24 Hours (Table) 05/20/22 05/20/22 05/21/22 Range/Units 16:27 20:19 06:18 POC Glucose (mg/dL) 218 H 187 H 181 H (70-110) mg/dL 05/21/22 Range/Units 12:25 POC Glucose (mg/dL) 224 H (70-110) mg/dL Assessment and Plan Plan: Acute CVA: - Neurology Follow Uterine Carcinosarcoma: - Status post Frankie-adjuvant Cycle 6 Day One of Carbo, Taxol (Receives weekly [id number]) - She is status post Frankie-adjuvant pelvic radiation completed on 03/14/22 - Hold chemotherapy at this time Vaginal bleeding resulting in stopping AC therapy, no known vaginal bleeding s maddie completion of radiation Will ask radiation oncology if any other contraindications or recommendations if recurrent bleeding once AC restarted Review of cardiology note regarding DOAC, agree to move forward with AC therapy as since pelvic radiation vaginal bleeding has not recurred. we can continue with monitoring Iron studies and cbc closley to discontinue if concern presents. Anemia is secondary to recent vaginal blood loss.
[2022-05-21 16:50] LABS: Glucose,Whole Blood 161 mg/dL (70-110)
--- NOTE | 2022-05-21 19:02 | MR ---
EXAMINATION TYPE: MR brain wo con DATE OF EXAM: 05/21/2022 5:11 PM COMPARISON: CT brain 05/18/2022. CLINICAL INDICATION:Female, 61 years old with history of Expressive aphasia; rule out stroke; TECHNIQUE: Multi planar, multi sequence imaging was performed through the brain including: T1, T2, In version recovery, Diffusion weighted imaging, and gradient echo imaging. No gadolinium was given. FINDINGS: Restricted diffusion within the left johnston radiata in the posterior aspect of the frontal lobe. The wise-white junctions, ventricular system, and cisterns appear unremarkable. Patchy areas of high T2 signal intensity are seen within the periventricular white matter. Midline structures show no abnorma lity. The bone marrow signal is within normal limits. The paranasal sinuses and globes are unremarkable. IMPRESSION: 1. Acute/Subacute CVA of the left johnston radiata of the posterior aspect of the left frontal lobe. 2. Nonspecific white matter changes, likely secondary to small vessel ischemic disease.
--- NOTE | 2022-05-21 19:33 | PN ---
PROGRESS NOTE This lady has history of paroxysmal atrial fibrillation, uterine cancer, chemotherapy. Because of anemia, her blood thinners were held. She ended up having a stroke, from which she seems to have recovered. She is going to go for an MRI. I am recommending that she should, if okay with Neurology, be on 2.5 mg b.i.d. of Eliquis. Vitals are stable. She is now in sinus rhythm. S1-S2 are heard normally. Short systolic murmur noted. Lungs are clear. Abdomen is soft, nontender. Lower extremities reveal normal pulses. No edema. Central nervous system is normal. Plan is to continue current therapy, when okayed by Neurology to start low-dose Eliquis. Prognosis remains guarded. MMODL / IJN: [id number] /
[2022-05-21 20:19] LABS: Glucose,Whole Blood 222 mg/dL (70-110)
[2022-05-21] MEDS: ACETAMINOPHEN TAB 500 MG TAB PO SCH (21:10)
[2022-05-21] MEDS: ATORVASTATIN 40 MG TAB PO SCH (21:11)
[2022-05-21] MEDS: diphenhydrAMINE 25 MG CAP PO SCH (21:11)
[2022-05-22] MEDS: DILTIAZEM 125 MG in SODIUM CHLORIDE 0.9% 100 ML IV SCH ×2 (00:16→12:14)
[2022-05-22] MEDS: HYDROcodone/APAP 7.5-325MG 1 EACH TAB PO PRN ×4 (00:18→23:57)
[2022-05-22] MEDS: HEPARIN SODIUM,PORCINE/PF 5,000 UNIT/0.5 ML SYRINGE SQ SCH ×3 (00:18→16:34)
[2022-05-22 06:03] LABS: Glucose,Whole Blood 177 mg/dL (70-110)
[2022-05-22] MEDS: INSULIN ASPART (NovoLOG) 100 UNIT/ML VIAL SQ SCH ×4 (06:53→20:36)
[2022-05-22] MEDS: metFORMIN 500 MG TAB PO SCH ×3 (06:53→16:34)
[2022-05-22] MEDS: LEVOTHYROXINE 100 MCG TAB PO SCH (06:53)
[2022-05-22 07:51] LABS: Anisocytosis Slight; Basophils % (A) 1 %; Eosinophils # (A) 0.1 k/uL (0-0.7); Eosinophils % (A) 2 %; HCT 30.9 % (34.0-46.0); Hypochromasia Slight; Lymphocytes # (A) 0.1 k/uL (1.0-4.8); Lymphocytes % (A) 3 %; MCH 30.3 pg (25.0-35.0); MCHC 32.5 g/dL (31.0-37.0); MCV 93.2 fL (80.0-100.0); Mean Platelet Volume 8.5; Monocytes # (A) 0.3 k/uL (0-1.0); Monocytes % (A) 8 %; Neutrophils # (A) 3.1 k/uL (1.3-7.7); Neutrophils % (A) 84 %; Platelet Count 188 k/uL (150-450); RBC 3.31 m/uL (3.80-5.40); RDW 16.1 % (11.5-15.5); WBC 3.7 k/uL (3.8-10.6)
[2022-05-22] MEDS: OXYBUTYNIN 10 MG TAB.ER.24 PO SCH (08:52)
[2022-05-22] MEDS: PANTOPRAZOLE 40 MG TABLET PO SCH (08:52)
[2022-05-22] MEDS: ASPIRIN 81 MG PO SCH (08:52)
[2022-05-22] MEDS: DILTIAZEM CD 180 MG CAP.ER.24H PO SCH (08:52)
[2022-05-22] MEDS: carvediloL 6.25 MG TAB PO SCH ×2 (08:52→16:34)
--- NOTE | 2022-05-22 09:47 | CDI ---
Documentation Clarification Form Date: 05/22/2022 09:32:48 AM From: Luaren Mixon CCS, CCDS Admit Date: 05/18/2022 06:18:00 PM Patient Name: Fiorella Smith Visit Number: [id number] Discharge Date: ATTENTION: The Clinical Documentation Specialists (CDI) and [facility] Coding Staff appreciate your assistance in clarifying documentation. Please respond to the clarification below the line at the bottom and electronically sign. The CDI & [facility] Coding staff will review the response and follow-up if needed. Please note: Queries are made part of the Legal Health Record. If you have any questions, please contact the author of this message via ITS. Dr. Ayo Mallory: Unspecified Anemia is documented in the 05/19 Cardiology Consult: No history of Anemia and in the 05/21 Cardiology Progress Note: Because of Anemia, her blood thinners were held. Additional specificity regarding the Type & Acuity of Anemia is requested. History/Risk Factors per the 05/19 H/P: Atrial Fibrillation on Coumadin, DM, GERD, Hypertension, Hyperlipidemia, Chronic Low Back Pain, Ovarian and Cervical Cancer status post Chemotherapy & Radiation, Obesity w/BMI 58.5. Clinical indicators: Presented to the ED with right foot numbness, developed dysarthria in the ED. Admit with Carcinosarcoma of body of Uterus, CVA, Elevated Troponin level. Hemoglobin 05/18: 11.6. 05/20: 10.0. 05/22: 10.0 Hematocrit 05/18: 35.9. 05/20: 30.8. 05/22: 30.9. Treatment 05/18: Neuro Assessment, Telemetry, O2 2Lnc, PT/OT & ST, IV Calcium gluconate/Na Chloride 100 mls @ 100 mls/hr x1, IV Mag Sulfate/Dextrose 100 mls @ 100 mls/hr x1, po [place] 7.5-325 q6H/prn, po Neurontin 100 mg TID/prn, 05/19: po Synthroid, Glucophage, Aspirin, Cardizem, Ditropan; IV Cardizem Drip bolus 10 mg x1, Heparin 5,000 unit sq q8H 05/20: Insulin sq, po Protonix, IV Zofran 4 mg q6H/prn. Please clarify the Type & Acuity of Anemia: [ ] Acute on chronic blood loss anemia [ ] Chronic blood loss anemia [ ] Hemolytic anemia [ ] Drug induced anemia [ ] Anemia due to malignancy [ ] Nutritional anemia [ ] Anemia of Other Chronic Disease, please specify: [ ] Unable to determine [ ] Other, please specify (Template Last Revised: December 2020) Unable to determine MTDD
--- NOTE | 2022-05-22 10:25 | P.PN ---
Subjective Progress Note Date: 05/21/22 Patient was initially seen by Dr. Juaquin Chase. Please refer to his note for details. Patient is a 61-year-old female with morbid obesity, diabetes, came to the hospital with expressive aphasia, right upper extremity weakness. Patient has history of ovarian cancer, also has history of vaginal bleeding while on anticoagulation. Patient has been off anticoagulation with Coumadin since last 6 months. She has diabetes for last 10 years. Patient currently on aspirin. Patient offers no new complaints. Telemetry monitoring showing no atrial fibrillation. Patient had a run of 5 beats of V. tach at 4 AM today. No atrial fibrillation. Objective - Vital Signs Vital signs: Vital Signs Temp 98 F 05/21/22 08:00 Pulse 74 05/21/22 16:00 Resp 16 05/21/22 16:00 BP 146/73 05/21/22 16:00 Pulse Ox 97 05/21/22 16:00 FiO2 Intake & Output 05/21/22 05/21/22 05/22/22 06:59 18:59 06:59 Intake Total 236 Balance 236 Intake: Oral 236 Other: Voiding Method Bedpan Bedpan Diaper Diaper # Voids 2 4 - Exam On examination patient is alert and awake in no distress. Speech is mildly dysarthric, with some hesitancy at times during the speech. Patient still can name all objects, can repeat. Patient knows it is May and the year is 2021 and that she is in [facility]. Cranial nerves significant for right facial droop, central type. Tongue protrudes to the midline. Visual palma are full. Pupils are equal, round and reacting to light. On muscle strength testing patient has right pronator drift, and groups about 30 down. 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 Ankles are normal bilaterally. Patient is areflexic. Sensations are equal. No obvious ataxia. Patient has significant protuberance of abdomen. There is some foul odor around. - Labs CBC & Chem 7: 05/22/22 07:00 05/20/22 07:52 Labs: Abnormal Lab Results - Last 24 Hours (Table) 05/20/22 05/21/22 05/21/22 Range/Units 20:19 06:18 12:25 POC Glucose (mg/dL) 187 H 181 H 224 H (70-110) mg/dL 05/21/22 Range/Units 16:42 POC Glucose (mg/dL) 161 H (70-110) mg/dL Assessment and Plan Assessment: Acute CVA (present during with mild right facial brachial weakness and slurred speech). Likely cardioembolic (atrial fibrillation and not on anticoagulation) Elevated troponin Atrial fibrillation not on any anticoagulation because of vaginal bleeding (off Coumadin for past 6 months) Ovarian cancer post chemotherapy and radiation therapy Vaginal/uterine bleeding History of coronary artery disease Hypertension Hyperlipidemia Diabetes mellitus Plan: MRI of brain revealed acute/subacute CVA of the left johnston radiata of the posterior aspect of the left frontal lobe. I reviewed MRI agree with the findings. Appears embolic in nature. Patient states she was not taking any antiplatelet medication or anticoagulants prior to the stroke. Now she has been started on aspirin 81 mg daily. Cardiology on board, who started the aspirin 81 mg. Recommend starting anticoagulation with Coumadin or Eliquis if no medical contraindications. Would defer to IM/cardiology/gynecology. Patient does have history of vaginal bleeding. Patient has ovarian cancer. Currently patient on aspirin 81 mg daily. Continue Lipitor 40 mg daily at bedtime for secondary stroke prophylaxis. Continue neuro checks. Continue cardiac monitoring PT OT and OPTICAL WORKER are consulted Oncology is consulted. Will defer the rest of medical management to primary team. For DVT prophylaxis: On subq heparin 5000U every 8 hours.
[2022-05-22 11:12] LABS: % Iron Saturation 7.82 (12.00-45.00)
--- NOTE | 2022-05-22 11:46 | P.CONS ---
History of Present Illness - Reason for Consult Consult date: 05/22/22 wound care - History of Present Illness This is a 61-year-old patient being seen on [address] for radiation [place] to the periwound. 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 Patient states that the ulcerations have been there for approximately 4 months. Patient has multiple open ulcerations with ecchymosis and serous drainage noted to the abdomen, perineum, and groin. Review Of Systems: Constitutional: No fever, no chills, no night sweats. No weight change. No weakness, fatigue or lethargy. No daytime sleepiness. Integumentary:reports wounds, no lesions. No rash or pruritus. No unusual bruising. No change in hair or nails. Physical exam: General Appearance: Alert, cooperative, no distress, appears stated age. Skin: See HPI all other Skin color, texture, tugor normal, no rashes or lesions. Neurologic: Alert oriented x3 Assessment: 1. Multiple open ulcerations with fat layer exposure related to radiation and chemo. 2. Soft tissue radionecrosis Plan: 1. Apply triad to all open areas. The utilize ABVD to control drainage. Change daily. Thank you for the consultation any questions was contact the wound care center DNP note has been reviewed and discussed with Dr. Jimenez and the impression and plan of care has been directed as dictated. Past Medical History Past Medical History: Atrial Fibrillation, Cancer, Diabetes Mellitus, GERD/Reflux, Hypertension, Thyroid Disorder Additional Past Medical History / Comment(s): Pt states she has had intermittent vaginal bleeding over past one year, NIDDM type II, UTIs, hypothyroid, chronic low back pain, occasional bilateral leg pain at night. Ovarian cancer with chemo and radiation. History of Any Multi-Drug Resistant Organisms: None Reported Past Surgical History: Heart Catheterization, Tonsillectomy, Uterine Ablation Additional Past Surgical History / Comment(s): Nasal fracture with surgery, wisdom teeth extractions. Past Anesthesia/Blood Transfusion Reactions: Postoperative Nausea & Vomiting (PONV) Additional Past Anesthesia/Blood Transfusion Reaction / Comm: Pt received blood this hospitalization without reaction. Past Psychological History: Depression Additional Psychological History / Comment(s): Pt resides alone in an apartment. She uses a walker or cane. She drives. Smoking Status: Former smoker Past Alcohol Use History: None Reported Additional Past Alcohol Use History / Comment(s): PT started smoking as a teen and quit in 1994. Past Drug Use History: None Reported - Past Family History Father Family Medical History: Cancer Additional Family Medical History / Comment(s): Father of lung cancer. He was a smoker. Mother Family Medical History: Vascular Disorder Additional Family Medical History / Comment(s): Mother of a cerebral aneurysm at the age of 58 yrs. Medications and Allergies Home Medications Medication Instructions Recorded Confirmed Type Gabapentin [Neurontin] 100 mg PO TID PRN 10/10/21 05/18/22 History Levothyroxine Sodium 200 mcg PO DAILY 10/10/21 05/18/22 History Nitroglycerin Sl Tabs [Nitrostat] 0.4 mg SL Q5M PRN 10/10/21 05/18/22 History Nystatin 100,000Unit/gm Cream 1 applic TOPICAL BID PRN 10/10/21 05/18/22 History [Mycostatin Cream] HYDROcodone/APAP 7.5-325MG [[place] 1 tab PO Q6HR PRN 3 Days #12 tab 10/23/21 05/18/22 Rx 7.5-325] Acetaminophen Tab [Tylenol Tab] 1,000 mg PO Q6H PRN 05/18/22 05/18/22 History Acetaminophen/Diphenhydramine 2 tab PO HS 05/18/22 05/18/22 History [Tylenol PM 500-25mg] Ibuprofen [Motrin Ib] 200 - 400 mg PO Q6H PRN 05/18/22 05/18/22 History Omeprazole Magnesium [PriLOSEC OTC] 20 mg PO Q48H 05/18/22 05/18/22 History Oxybutynin ER [Ditropan Xl] 10 mg PO DAILY 05/18/22 05/18/22 History Warfarin Sodium 6 mg PO HS 05/18/22 05/18/22 History carvediloL [Coreg] 25 mg PO BID 05/18/22 05/18/22 History dilTIAZem HCL [Cardizem LA] 180 mg PO DAILY 05/18/22 05/18/22 History metFORMIN HCL ER [Glucophage XR] 500 mg PO TID-W/MEALS 05/18/22 05/18/22 History Allergies Allergy/AdvReac Type Severity Reaction Status Date / Time apixaban [From Eliquis] AdvReac Unsure, Verified 05/18/22 19:08 told by Director Quality Systems not to take Physical Exam Vitals: Vital Signs Temp Pulse Resp BP Pulse Ox 05/22/22 11:35 64 18 109/54 95 05/22/22 08:50 98.2 F 71 20 131/57 94 L 05/22/22 04:00 98.3 F 63 18 95/55 95 05/22/22 00:00 98.2 F 71 18 119/74 95 05/21/22 20:00 97.9 F 69 18 119/63 92 L 05/21/22 16:00 74 16 146/73 97 05/21/22 12:00 68 16 143/71 95 Intake and Output 05/21/22 05/22/22 05/22/22 22:59 06:59 14:59 Intake Total 0 600 180 Balance 0 600 180 Intake: Oral 0 600 180 Other: Voiding Method Bedpan Bedpan Bedpan Diaper Diaper Diaper # Voids 4 2 Results CBC & Chem 7: 05/22/22 07:00 05/20/22 07:52 Labs: Abnormal Lab Results - Last 24 Hours (Table) 05/21/22 05/21/22 05/21/22 Range/Units 12:25 16:42 20:13 WBC (3.8-10.6) k/uL RBC (3.80-5.40) m/uL Hgb (11.4-16.0) gm/dL Hct (34.0-46.0) % RDW (11.5-15.5) % Lymphocytes # (1.0-4.8) k/uL POC Glucose (mg/dL) 224 H 161 H 222 H (70-110) mg/dL Iron (50-170) ug/dL TIBC (228-460) ug/dL % Saturation (12.00-45.00) Transferrin (204.0-354.0) mg/dL Ferritin (10.0-291.0) ng/mL 05/22/22 05/22/22 05/22/22 Range/Units 05:49 07:00 07:00 WBC 3.7 L (3.8-10.6) k/uL RBC 3.31 L (3.80-5.40) m/uL Hgb 10.0 L (11.4-16.0) gm/dL Hct 30.9 L (34.0-46.0) % RDW 16.1 H (11.5-15.5) % Lymphocytes # 0.1 L (1.0-4.8) k/uL POC Glucose (mg/dL) 177 H (70-110) mg/dL Iron 13 L (50-170) ug/dL TIBC 162 L (228-460) ug/dL % Saturation 7.82 L (12.00-45.00) Transferrin 116.0 L (204.0-354.0) mg/dL Ferritin 518.0 H (10.0-291.0) ng/mL Assessment and Plan (1) Non-healing ulcer of multiple sites with fat layer exposed Current Visit: Yes Status: Acute Code(s): L98.492 - NON-PRS CHRONIC ULCER OF SKIN OF SITES W FAT LAYER EXPOSED SNOMED Code(s): 31516197 (2) Soft tissue radionecrosis Current Visit: Yes Status: Acute Code(s): L59.8 - OTH DISRD OF THE SKIN, SUBCU RELATED TO RADIATION; Y84.2 - RADIOLOG PROC/RADIOTHRPY CAUSE ABN REACT/ COMPL, W/O MISADVNT SNOMED Code(s): 99741919
[2022-05-22 12:05] LABS: Glucose,Whole Blood 155 mg/dL (70-110)
[2022-05-22] MEDS: HYDROPHILIC CREAM 180 GM TUBE TOPICAL SCH (12:17)
--- NOTE | 2022-05-22 13:56 | PN ---
PROGRESS NOTE Mrs. Smith is a lady who has atrial fib and has had a stroke. I am recommending Eliquis 2.5 mg b.i.d. when okayed by Neurology. MRI does suggest an acute or subacute stroke. Vitals are stable. No JVD. S1-S2 heard normally. Heart sounds are distant. Short systolic murmur noted. Lungs reveal diminished air entry. Abdomen and lower extremity exam is unchanged. MMODL / IJN: [id number] /
--- NOTE | 2022-05-22 15:21 | P.PN ---
Progress Note - Text Progress Note Date: 05/22/22 Chief Complaint: Dysarthria This is a pleasant 61-year-old patient, follows with Dr. Smooth Bob. Chronic stable medical conditions include diabetes, GERD, essential hypertension, hypothyroid. Chronic low back pain. Ovarian cancer treatment for chemo and radiation treatment. Patient at baseline uses a walker and a cane. Patient presented to ER with some right foot numbness. In the ER patient developed dysarthria. Computed tomography scan brain was unremarkable.. Neurology consulted. Patient's INR was 1. Sinus rhythm. Neurology was consulted. No weakness in the arms and legs otherwise. No headache. No change in vision. This morning speech remains slurred. May 20: 2 bouts of vomiting. Some choking. Diet changed to applesauce with medications. Modified barium swallow ordered. Discussed with patient. May 21: Speech therapy not available today hence modified barium swallow could not be done. Tolerating applesauce. Speech remains slurred. May 22: Patient has multiple open ulcerations with ecchymosis and serous drainage in the abdomen perineum and groin from radiation. Wound care is following the same. Speech remains slurred. Eliquis was started by cardiology. Discussed with the patient. She understands that eliquis is required. Any further vaginal bleeding that eliquis to be discontinued. As per the nurse, oral intake minimal as does not like the food. Told the nurse to have dietitian and, Dr. the patient. On a ground diet. MRI brain did confirm a left coronara radiata stroke. Active Medications Acetaminophen (Acetaminophen Tab 500 Mg Tab) 1,000 mg PO Q6H PRN PRN Reason: Fever and/ or Pain Acetaminophen (Acetaminophen Tab 500 Mg Tab) 1,000 mg PO HS PENDING SALE TO [facility] Last Admin: 05/21/22 21:10 Dose: 1,000 mg Hydrocodone Bitart/Acetaminophen (Hydrocodone/Apap 7.5-325mg 1 Each Tab) 1 each PO Q6HR PRN PRN Reason: Pain Last Admin: 05/22/22 12:27 Dose: 1 each Apixaban (Apixaban 2.5 Mg Tablet) 2.5 mg PO BID FANNY; Protocol Aspirin (Aspirin 81 Mg) 81 mg PO DAILY FANNY Last Admin: 05/22/22 08:52 Dose: 81 mg Atorvastatin Calcium (Atorvastatin 40 Mg Tab) 40 mg PO HS PENDING SALE TO [facility] Last Admin: 05/21/22 21:11 Dose: 40 mg Calcium Carbonate/Glycine (Calcium Carbonate 500 Mg Chewable) 1,000 mg PO ONCE PRN PRN Reason: Heartburn Carvedilol (Carvedilol 6.25 Mg Tab) 25 mg PO BID-W/MEALS PENDING SALE TO [facility] Last Admin: 05/22/22 08:52 Dose: 25 mg Diltiazem HCl (Diltiazem Cd 180 Mg Cap.Er.24h) 180 mg PO DAILY PENDING SALE TO [facility] Last Admin: 05/22/22 08:52 Dose: 180 mg Diphenhydramine HCl (Diphenhydramine 25 Mg Cap) 50 mg PO HS PENDING SALE TO [facility] Last Admin: 05/21/22 21:11 Dose: 50 mg Heparin Sodium (Porcine) (Heparin Sodium,Porcine/Pf 5,000 Unit/0.5 Ml Syringe) 5,000 unit SQ Q8HR PENDING SALE TO [facility] Stop: 05/22/22 22:00 Last Admin: 05/22/22 08:52 Dose: 5,000 unit Diltiazem HCl 125 mg/ Sodium (Chloride) 125 mls @ 10 mls/hr IV .[id number] PENDING SALE TO [facility] Last Admin: 05/22/22 12:14 Dose: Not Given Ibuprofen (Ibuprofen 200 Mg Tab) 200 mg PO Q6H PRN PRN Reason: Fever and/ or Pain Insulin Aspart (Insulin Aspart (Novolog) 100 Unit/Ml Vial) 0 unit SQ ACHS PENDING SALE TO [facility]; Protocol Last Admin: 05/22/22 12:17 Dose: 2 unit Levothyroxine Sodium (Levothyroxine 100 Mcg Tab) 200 mcg PO DAILY@0630 PENDING SALE TO [facility] Last Admin: 05/22/22 06:53 Dose: 200 mcg Metformin HCl (Metformin 500 Mg Tab) 500 mg PO TID-W/MEALS PENDING SALE TO [facility] Last Admin: 05/22/22 12:17 Dose: 500 mg Multi-Ingred Cream/Lotion/Oil/Oint (Hydrophilic Cream 180 Gm Tube) 1 applic TOPICAL DAILY PENDING SALE TO [facility]; Protocol Last Admin: 05/22/22 12:17 Dose: 1 applic Nitroglycerin (Nitroglycerin Sl Tabs 0.4 Mg Tab) 0.4 mg SUBLINGUAL Q5M PRN PRN Reason: Chest Pain Nystatin (Nystatin 100,000unit/Gm Cream 30 Gm Tube) 1 applic TOPICAL BID PRN; Protocol PRN Reason: Rash Ondansetron HCl (Ondansetron 4 Mg/2 Ml Vial) 4 mg IVP Q6HR PRN PRN Reason: Nausea And Vomiting Last Admin: 05/20/22 15:06 Dose: 4 mg Oxybutynin Chloride (Oxybutynin 10 Mg Tab.Er.24) 10 mg PO DAILY PENDING SALE TO [facility] Last Admin: 05/22/22 08:52 Dose: 10 mg Pantoprazole Sodium (Pantoprazole 40 Mg Tablet) 40 mg PO Q48H PENDING SALE TO [facility] Last Admin: 05/22/22 08:52 Dose: 40 mg Past medical history to include: Atrial fibrillation, diabetes, GERD, hypertension, hypothyroid, ovarian cancer with chemo and radiation treatment. Depression. Social history: Lives alone in an apartment. Does use a walker and cane. Patient started smoking as a teenager and stopped in 1994. No alcohol. Family history: Father of lung cancer Physical examination: VITAL SIGNS: 98.2, 64, 18, 109/54, 95% room air GENERAL: laying in bed awake. Tired EYES: Pupils equal. Conjunctiva normal. HEENT: External appearance of nose and ears normal, oral cavity grossly normal. NECK: JVD unable to assess; masses not palpable. HEART: First and second heart sounds are normal; no edema. LUNGS: Respiratory rate normal; distant breath sound. ABDOMEN: Soft, nontender, liver spleen not palpable, no masses palpable. PSYCH: Alert and oriented x3; mood and affect a bit low MUSCULOSKELETAL:No Clubbing/cyanosis;muscles-grossly intact, evidence of OA NEUROLOGICAL: Slurred speech. Power and sensation grossly intact. Mouth slightly pulled to the left INVESTIGATIONS, reviewed in the clinical context: May 22: WBC 3.7 hemoglobin 10 platelets 188 I did 13% saturation 7.8 transferrin 116 MRI brain without contrast: Acute/subacute CVA of the left coronary radiata on the posterior aspect of the left frontal lobe. Nonspecific white matter changes. May 20: White count 7.9 hemoglobin 10 potassium 4.2 creatinine 1.02 White count was 5 hemoglobin 11.6 platelets 219 BUN 25 creatinine 0.90 Troponin I 0.334, 0.335 LDL 76 EKG tracing personally reviewed by me-nonspecific T-wave changes. Sinus rhythm CT brain: Mild atrophic CT angiography of the brain: Nonspecific 2-D echocardiogram: EF 55-60%, severe LVH Assessment and plan: -Acute stroke in the left johnston radiata on the posterior aspect of the left frontal lobe. suspected to be embolic from underlying paroxysmal atrial fibrillation, Follow with Neurology . Aspirin. Lipitor -Paroxysmal atrial fibrillation: Currently sinus rhythm Started on eliquis. Discussed with patient. Will discontinue if any vaginal bleeding recurs -Multiple excoriations in the groin and perianal area from radiation Follow with wound care -Acute dysphagia from underlying stroke Seen by speech. Chopped diet -Morbid obesity BMI 57.8 Weight loss measures -GERD Prilosec 20 mg -Hypertensive heart disease On beta vel -Essential hypertension Coreg 25 mg twice a day, Cardizem LA 180 mg a day -Chronic urinary stress incontinence Ditropan XL 10 mg a day -Hypothyroid Synthroid 200 g a day -Chronic gait dysfunction Uses a cane/walker at baseline -Troponin leak, likely from hemodynamic mismatch. No cardiac disease symptoms. Cardiology consulted On eliquis. Discussed with patient and the nurse. Will DC eliquis if any bleeding. Watch for 24 hours. Chopped diet per speech. Hopefully discharge in next 24 hours. Time spent today about 40 minutes with over 25 minutes of discussion.
[2022-05-22 16:25] LABS: Glucose,Whole Blood 174 mg/dL (70-110)
[2022-05-22] MEDS ORDERED: RIVAROXABAN 15 MG TAB PO SCH (17:30)
--- NOTE | 2022-05-22 17:45 | P.PN ---
Subjective Progress Note Date: 05/22/22 Principal diagnosis: Ov ca with vaginal bleeding In follow-up patient is notably having some difficulty speaking, right facial droop is noted, little bit of trouble finding words. She is able to move her right arm and right leg without difficulty. She denies current bleeding-at least that she is aware of. She is reporting some pretty severe tenderness on the right groin, she is also stating "pimple" on her backside as well as the right side of her pannus. Objective - Vital Signs Vital signs: Vital Signs Temp 98.2 F 05/22/22 08:50 Pulse 64 05/22/22 13:28 Resp 18 05/22/22 11:35 BP 109/54 05/22/22 11:35 Pulse Ox 95 05/22/22 11:35 FiO2 Intake & Output 05/21/22 05/22/22 05/22/22 18:59 06:59 18:59 Intake Total 236 600 360 Balance 236 600 360 Intake: Oral 236 600 360 Other: Voiding Method Bedpan Bedpan Bedpan Diaper Diaper Diaper External Catheter # Voids 4 2 - Constitutional General appearance: Present: cooperative, morbidly obese - EENT Eyes: Present: anicteric sclerae - Respiratory Respiratory: bilateral: CTA, diminished - Cardiovascular Rhythm: regular Heart sounds: normal: S1, S2 Abnormal Heart Sounds: Absent: systolic murmur, diastolic murmur, rub, S3 Gallop, S4 Gallop, click, other - Gastrointestinal General gastrointestinal: Present: normal bowel sounds - Integumentary Integumentary Comment(s): the right side of the patient's pannus is unusually tender, it is reddened. There is also a very large mass that the patient is saying is a "pimple" - Neurologic Neurologic Comment(s): right facial droop, slightly slurred speech, no other right-sided deficits - Musculoskeletal Musculoskeletal: Present: generalized weakness - Psychiatric Psychiatric: Present: A&O x's 3, appropriate affect, intact judgment & insight - Labs CBC & Chem 7: 05/22/22 07:00 05/20/22 07:52 Labs: Abnormal Lab Results - Last 24 Hours (Table) 05/21/22 05/22/22 05/22/22 Range/Units 20:13 05:49 07:00 WBC 3.7 L (3.8-10.6) k/uL RBC 3.31 L (3.80-5.40) m/uL Hgb 10.0 L (11.4-16.0) gm/dL Hct 30.9 L (34.0-46.0) % RDW 16.1 H (11.5-15.5) % Lymphocytes # 0.1 L (1.0-4.8) k/uL POC Glucose (mg/dL) 222 H 177 H (70-110) mg/dL Iron (50-170) ug/dL TIBC (228-460) ug/dL % Saturation (12.00-45.00) Transferrin (204.0-354.0) mg/dL Ferritin (10.0-291.0) ng/mL 05/22/22 05/22/22 05/22/22 Range/Units 07:00 12:01 16:24 WBC (3.8-10.6) k/uL RBC (3.80-5.40) m/uL Hgb (11.4-16.0) gm/dL Hct (34.0-46.0) % RDW (11.5-15.5) % Lymphocytes # (1.0-4.8) k/uL POC Glucose (mg/dL) 155 H 174 H (70-110) mg/dL Iron 13 L (50-170) ug/dL TIBC 162 L (228-460) ug/dL % Saturation 7.82 L (12.00-45.00) Transferrin 116.0 L (204.0-354.0) mg/dL Ferritin 518.0 H (10.0-291.0) ng/mL Assessment and Plan (1) CVA (cerebral vascular accident) Current Visit: Yes Status: Acute Priority: High Code(s): I63.9 - CEREBRAL INFARCTION, UNSPECIFIED SNOMED Code(s): 046946448 (2) Carcinosarcoma of body of uterus Current Visit: Yes Status: Acute Priority: High Code(s): C54.9 - MALIGNANT NEOPLASM OF CORPUS UTERI, UNSPECIFIED SNOMED Code(s): 511057594 (3) Soft tissue radionecrosis Current Visit: Yes Status: Acute Priority: High Code(s): L59.8 - OTH DISRD OF THE SKIN, SUBCU RELATED TO RADIATION; Y84.2 - RADIOLOG PROC/RADIOTHRPY CAUSE ABN REACT/COMPL, W/O MISADVNT SNOMED Code(s): 25119825 (4) Vaginal hemorrhage Current Visit: Yes Status: Acute Priority: Medium Code(s): N93.9 - ABNORMAL UTERINE AND VAGINAL BLEEDING, UNSPECIFIED SNOMED Code(s): 252844619 Plan: CVA acute. Right facial droop, some speech impairment. Patient is been seen by Neurology. She is on aspirin and low dose eliquis secondary to vaginal bleeding. Patient is nearly complete with her treatment for endometrial carcinoma. She only has 2 more treatments. These will be delayed. Patient has been seen by Radiation Oncologist Anemia currently is mild, not requiring transfusion. There a drop in hemoglobin on admission but no continued decline. RBC indices are within normal defined limits at this time. CBC will continue to be monitored. Iron studies will be monitored as well in the outpatient setting. Wound care following patient for radiation necrosis. Patient's right groin severely tender. Continue to monitor very closely. Currently, vaginal hemorrhage appears to be under control. this will be monitored closely as patient is on antiplatelet therapy and anticoagulation for acute CVA.
[2022-05-22 20:09] LABS: Glucose,Whole Blood 170 mg/dL (70-110)
[2022-05-22] MEDS: ACETAMINOPHEN TAB 500 MG TAB PO SCH (20:35)
[2022-05-22] MEDS: APIXABAN 2.5 MG TABLET PO SCH (20:36)
[2022-05-22] MEDS: ATORVASTATIN 40 MG TAB PO SCH (20:36)
[2022-05-22] MEDS: diphenhydrAMINE 25 MG CAP PO SCH (20:36)
[2022-05-23] MEDS: DILTIAZEM 125 MG in SODIUM CHLORIDE 0.9% 100 ML IV SCH ×2 (04:50→14:10)
[2022-05-23 06:33] LABS: Glucose,Whole Blood 181 mg/dL (70-110)
[2022-05-23] MEDS: LEVOTHYROXINE 100 MCG TAB PO SCH (06:41)
[2022-05-23] MEDS: metFORMIN 500 MG TAB PO SCH ×3 (06:41→17:15)
[2022-05-23] MEDS: INSULIN ASPART (NovoLOG) 100 UNIT/ML VIAL SQ SCH ×4 (06:42→21:40)
--- NOTE | 2022-05-23 07:49 | CDI ---
Documentation Clarification Form Date: 05/23/2022 07:45:01 AM From: Lauren Mixon CCS, CCDS Admit Date: 05/18/2022 06:18:00 PM Patient Name: Firoella Smith Visit Number: [id number] Discharge Date: ATTENTION: The Clinical Documentation Specialists (CDI) and [facility] Coding Staff appreciate your assistance in clarifying documentation. Please respond to the clarification below the line at the bottom and electronically sign. The CDI & [facility] Coding staff will review the response and follow-up if needed. Please note: Queries are made part of the Legal Health Record. If you have any questions, please contact the author of this message via ITS. Dr. Gina Miramontes: Unspecified Anemia is documented in the 05/19 Cardiology Consult: No history of Anemia and in the 05/21 Cardiology Progress Note: Because of Anemia, her blood thinners were held. Per the 05/22 Oncology Progress Note: Anemia, currently is mild, not requiring transfusion. There was a drop in hemoglobin on admission but no continued decline. RBC wnl. Monitor CBC, Iron studies will be monitored outpatient. Additional specificity regarding the Type & Acuity of Anemia is requested. History/Risk Factors per the 05/19 H/P: Atrial Fibrillation on Coumadin, DM, GERD, Hypertension, Hyperlipidemia, Chronic Low Back Pain, Ovarian and Cervical Cancer status post Chemotherapy & Radiation, Obesity w/BMI 58.5. Clinical indicators: Presented to the ED with right foot numbness, developed dysarthria in the ED. Admit with Carcinosarcoma of body of Uterus, CVA, Elevated Troponin level. Hemoglobin 05/18: 11.6. 05/20: 10.0. 05/22: 10.0 Hematocrit 05/18: 35.9. 05/20: 30.8. 05/22: 30.9. Treatment 05/18: Neuro Assessment, Telemetry, O2 2Lnc, PT/OT & ST, IV Calcium gluconate/Na Chloride 100 mls @ 100 mls/hr x1, IV Mag Sulfate/Dextrose 100 mls @ 100 mls/hr x1, po [place] 7.5-325 q6H/prn, po Neurontin 100 mg TID/prn, 05/19: po Synthroid, Glucophage, Aspirin, Cardizem, Ditropan; IV Cardizem Drip bolus 10 mg x1, Heparin 5,000 unit sq q8H 05/20: Insulin sq, po Protonix, IV Zofran 4 mg q6H/prn. Please clarify the Type & Acuity of Anemia: [ ] Acute on chronic blood loss anemia [ ] Chronic blood loss anemia [ ] Hemolytic anemia [ ] Drug induced anemia [ ] Anemia due to malignancy [ ] Iron deficiency anemia [ ] Nutritional anemia [ ] Anemia of Other Chronic Disease, please specify: [ ] Unable to determine [ ] Other, please specify (Template Last Revised: December 2020) MTDD
[2022-05-23] MEDS: HYDROcodone/APAP 7.5-325MG 1 EACH TAB PO PRN (10:10)
[2022-05-23] MEDS: OXYBUTYNIN 10 MG TAB.ER.24 PO SCH (10:11)
[2022-05-23] MEDS: APIXABAN 2.5 MG TABLET PO SCH ×2 (10:11→21:40)
[2022-05-23] MEDS: HYDROPHILIC CREAM 180 GM TUBE TOPICAL SCH (10:11)
[2022-05-23] MEDS: carvediloL 6.25 MG TAB PO SCH ×2 (10:11→17:15)
[2022-05-23] MEDS: DILTIAZEM CD 180 MG CAP.ER.24H PO SCH (10:11)
[2022-05-23] MEDS: ASPIRIN 81 MG PO SCH (10:11)
--- NOTE | 2022-05-23 10:35 | P.PN ---
Subjective Progress Note Date: 05/22/22 05/22/2022: Patient laying comfortably in the bed. Patient offers no new complaints. Telemetry monitoring showing sinus rhythm with some PVCs and PACs. 05/21/2022: Patient was initially seen by Dr. Juaquin Chase. Please refer to his note for details. Patient is a 61-year-old female with morbid obesity, diabetes, came to the hospital with expressive aphasia, right upper extremity weakness. Patient has history of ovarian cancer, also has history of vaginal bleeding while on anticoagulation. Patient has been off anticoagulation with Coumadin since last 6 months. She has diabetes for last 10 years. Patient currently on aspirin. Patient offers no new complaints. Telemetry monitoring showing no atrial fibrillation. Patient had a run of 5 beats of V. tach at 4 AM today. No atrial fibrillation. Objective - Vital Signs Vital signs: Vital Signs Temp 97.5 F L 05/23/22 08:00 Pulse 95 05/23/22 08:00 Resp 18 05/23/22 08:00 BP 102/65 05/23/22 08:00 Pulse Ox 93 L 05/23/22 08:00 FiO2 Intake & Output 05/22/22 05/23/22 05/23/22 18:59 06:59 18:59 Intake Total 410 Output Total 100 900 Balance 310 -900 Intake: Oral 410 Output: Urine 100 900 Other: Voiding Method Bedpan Bedpan Bedpan Diaper Diaper Diaper External Catheter External Catheter External Catheter - Exam On examination patient is alert and awake in no distress. Speech is mildly dysarthric, with some hesitancy at times during the speech. Patient still can name all objects, can repeat. Patient knows it is May and the year is 2021 and that she is in [facility]. Cranial nerves significant for right facial droop, central type. Tongue protr udes to the midline. Visual palma are full. Pupils are equal, round and reacting to light. On muscle strength testing patient has right pronator drift, and droops about 30 down. 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 Ankles are normal bilaterally. Patient is areflexic. Sensations are equal. No obvious ataxia. Patient has significant protuberance of abdomen. There is some foul odor around. Patient appears pale. - Labs CBC & Chem 7: 05/22/22 07:00 05/20/22 07:52 Labs: Abnormal Lab Results - Last 24 Hours (Table) 05/22/22 05/22/22 05/22/22 Range/Units 07:00 12:01 16:24 POC Glucose (mg/dL) 155 H 174 H (70-110) mg/dL Iron 13 L (50-170) ug/dL TIBC 162 L (228-460) ug/dL % Saturation 7.82 L (12.00-45.00) Transferrin 116.0 L (204.0-354.0) mg/dL Ferritin 518.0 H (10.0-291.0) ng/mL 05/22/22 05/23/22 Range/Units 20:08 06:31 POC Glucose (mg/dL) 170 H 181 H (70-110) mg/dL Iron (50-170) ug/dL TIBC (228-460) ug/dL % Saturation (12.00-45.00) Transferrin (204.0-354.0) mg/dL Ferritin (10.0-291.0) ng/mL Assessment and Plan Assessment: Acute CVA (presenting with mild right facial brachial weakness and slurred speech). Likely cardioembolic (atrial fibrillation and not on anticoagulation) Elevated troponin Atrial fibrillation not on any anticoagulation because of vaginal bleeding (off Coumadin for past 6 months) Ovarian cancer post chemotherapy and radiation therapy Vaginal/uterine bleeding History of coronary artery disease Hypertension Hyperlipidemia Diabetes mellitus Plan: MRI of brain revealed acute/subacute CVA of the left johnston radiata of the posterior aspect of the left frontal lobe. I reviewed MRI agree with the findings. Appears embolic in nature. Patient states she was not taking any antiplatelet medication or anticoagulants prior to the stroke. Patient started on low dose Eliquis 2.5 mg twice a day. Also on aspirin 81 mg daily. Neurologically, antiplatelet is not indicated. May stop aspirin, unless necessary from cardiac point. Watch for any bleeding. Patient does have history of vaginal bleeding. Patient has ovarian cancer. She has almost completed her treatment for cancer. Continue Lipitor 40 mg daily at bedtime for secondary stroke prophylaxis. Continue neuro checks. Continue cardiac monitoring PT OT and PHYSICS TUTOR are consulted Oncology is consulted. Will defer the rest of medical management to primary team. For DVT prophylaxis: On subq heparin 5000U every 8 hours.
[2022-05-23 11:51] LABS: Glucose,Whole Blood 189 mg/dL (70-110)
--- NOTE | 2022-05-23 14:15 | P.PN ---
Subjective Progress Note Date: 05/23/22 Principal diagnosis: Carcinosarcoma of uterus, new CVA Objective - Vital Signs Vital signs: Vital Signs Temp 97.9 F 05/23/22 12:00 Pulse 96 05/23/22 12:00 Resp 18 05/23/22 12:40 BP 99/85 05/23/22 12:00 Pulse Ox 90 L 05/23/22 12:00 FiO2 Intake & Output 05/22/22 05/23/22 05/23/22 18:59 06:59 18:59 Intake Total 410 Output Total 100 900 Balance 310 -900 Intake: Oral 410 Output: Urine 100 900 Other: Voiding Method Bedpan Bedpan Bedpan Diaper Diaper Diaper External Catheter External Catheter External Catheter - Exam - Constitutional General appearance: cooperative - EENT Eyes: EOMI ENT: NA/AT - Neck Neck: normal ROM - Cardiovascular Rhythm: regularly irregular - Gastrointestinal General gastrointestinal: distended, soft - Integumentary Labile excoriation Integumentary: pale - Musculoskeletal Musculoskeletal: generalized weakness Slurred unilateral - Labs CBC & Chem 7: 05/22/22 07:00 05/20/22 07:52 Labs: Abnormal Lab Results - Last 24 Hours (Table) 05/22/22 05/22/22 05/23/22 Range/Units 16:24 20:08 06:31 POC Glucose (mg/dL) 174 H 170 H 181 H (70-110) mg/dL 05/23/22 Range/Units 11:50 POC Glucose (mg/dL) 189 H (70-110) mg/dL Assessment and Plan Plan: Acute CVA: - Neurology Follow Uterine Carcinosarcoma: - Status post Frankie-adjuvant Cycle 6 Day One of Carbo, Taxol (Receives weekly [id number]) - She is status post Frankie-adjuvant pelvic radiation completed on 03/14/22 - Hold chemotherapy at this time Vaginal bleeding resulting in stopping AC therapy, no known vaginal bleeding since completion of radiation Will ask radiation oncology if any other contraindications or recommendations if recurrent bleeding once AC restarted Review of cardiology note regarding DOAC, agree to move forward with AC therapy as since pelvic radiation vaginal bleeding has not recurred. we can continue with monitoring Iron studies and cbc closley to discontinue if concern presents. Anemia is secondary to recent vaginal blood loss. Discharge is planned today, will hold chemotherapy last two treatments until performance is improved. Can follow-up for weekly labs and see Dr. hunter in a couple weeks
--- NOTE | 2022-05-23 15:40 | P.PN ---
Subjective Progress Note Date: 05/23/22 05/23/2022: Patient is laying comfortably in the bed. Appears slightly frustrated. No change. Complains of feeling tired. No numbness or tingling. No new speech problem. Telemetry monitoring showing atrial fibrillation with heart rate of 88. 05/22/2022: Patient laying comfortably in the bed. Patient offers no new complaints. Telemetry monitoring showing sinus rhythm with some PVCs and PACs. 05/21/2022: Patient was initially seen by Dr. Juaquin Chase. Please refer to his note for details. Patient is a 61-year-old female with morbid obesity, diabetes, came to the hospital with expressive aphasia, right upper extremity weakness. Patient has history of ovarian cancer, also has history of vaginal bleeding while on anticoagulation. Patient has been off anticoagulation with Coumadin since last 6 months. She has diabetes for last 10 years. Patient currently on aspirin. Patient offers no new complaints. Telemetry monitoring showing no atrial fibrillation. Patient had a run of 5 beats of V. tach at 4 AM today. No atrial fibrillation. Objective - Vital Signs Vital signs: Vital Signs Temp 97.9 F 05/23/22 12:00 Pulse 96 05/23/22 12:00 Resp 18 05/23/22 12:40 BP 99/85 05/23/22 12:00 Pulse Ox 90 L 05/23/22 12:00 FiO2 Intake & Output 05/22/22 05/23/22 05/23/22 18:59 06:59 18:59 Intake Total 410 Output Total 100 900 Balance 310 -900 Intake: Oral 410 Output: Urine 100 900 Other: Voiding Method Bedpan Bedpan Bedpan Diaper Diaper Diaper External Catheter External Catheter External Catheter - Exam On examination patient is alert and awake in no distress. Speech is mildly dysarthric, with some hesitancy at times during the speech. Patient still can name all objects, can repeat. Patient knows it is May and the year is 2021 and that she is in [facility]. Cranial nerves significant for right facial droop, central type. Tongue protrudes to the midline. Visual palma are full. Pupils are equal, round and reacting to light. On muscle strength testing patient has right pronator drift, and droops about 30 down. 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 Ankles are no rmal bilaterally. Patient is areflexic. Sensations are equal. No obvious ataxia. Patient has significant protuberance of abdomen. There is some foul odor around. Patient appears pale. - Labs CBC & Chem 7: 05/22/22 07:00 05/20/22 07:52 Labs: Abnormal Lab Results - Last 24 Hours (Table) 05/22/22 05/22/22 05/23/22 Range/Units 16:24 20:08 06:31 POC Glucose (mg/dL) 174 H 170 H 181 H (70-110) mg/dL 05/23/22 Range/Units 11:50 POC Glucose (mg/dL) 189 H (70-110) mg/dL Assessment and Plan Assessment: Acute left frontal ischemic CVA (presenting with mild right facial brachial weakness and slurred speech). Event likely cardioembolic, as patient has atrial fibrillation, was not taking any anticoagulation at that time. Patient was off Coumadin for 6 months. Elevated troponin Atrial fibrillation Ovarian cancer post chemotherapy and radiation therapy Vaginal/uterine bleeding History of coronary artery disease Hypertension Hyperlipidemia Diabetes mellitus Plan: MRI of brain revealed acute/subacute CVA of the left johnston radiata of the posterior aspect of the left frontal lobe. I reviewed MRI agree with the findings. Appears embolic in nature. Patient states she was not taking any antiplatelet medication or anticoagulants prior to the stroke. Patient started on low dose Eliquis 2.5 mg twice a day. Also on aspirin 81 mg daily. Neurologically, antiplatelet is not indicated. May stop aspirin, unless necessary from cardiac point. Watch for any bleeding. Patient does have history of vaginal bleeding. Patient has ovarian cancer. Continue Lipitor 40 mg daily at bedtime for secondary stroke prophylaxis. Continue neuro checks. Continue cardiac monitoring PT OT and LABORATORY TECH are consulted Oncology is consulted. Will defer the rest of medical management to primary team. For DVT prophylaxis: On subq heparin 5000U every 8 hours. Neurologically clear for transfer to rehab.
[2022-05-23 16:38] LABS: Glucose,Whole Blood 177 mg/dL (70-110)
--- NOTE | 2022-05-23 16:52 | P.PN ---
Progress Note - Text Progress Note Date: 05/23/22 Chief Complaint: Dysarthria This is a pleasant 61-year-old patient, follows with Dr. Smooth Bob. Chronic stable medical conditions include diabetes, GERD, essential hypertension, hypothyroid. Chronic low back pain. Ovarian cancer treatment for chemo and radiation treatment. Patient at baseline uses a walker and a cane. Patient presented to ER with some right foot numbness. In the ER patient developed dysarthria. Computed tomography scan brain was unremarkable.. Neurology consulted. Patient's INR was 1. Sinus rhythm. Neurology was consulted. No weakness in the arms and legs otherwise. No headache. No change in vision. This morning speech remains slurred. May 20: 2 bouts of vomiting. Some choking. Diet changed to applesauce with medications. Modified barium swallow ordered. Discussed with patient. May 21: Speech therapy not available today hence modified barium swallow could not be done. Tolerating applesauce. Speech remains slurred. May 22: Patient has multiple open ulcerations with ecchymosis and serous drainage in the abdomen perineum and groin from radiation. Wound care is following the same. Speech remains slurred. Eliquis was started by cardiology. Discussed with the patient. She understands that eliquis is required. Any further vaginal bleeding that eliquis to be discontinued. As per the nurse, oral intake minimal as does not like the food. Told the nurse to have dietitian and, Dr. the patient. On a ground diet. MRI brain did confirm a left coronara radiata stroke. May 23: Some improvement in speech. Oral intake better. Pending authorization to go to rehab. Discussed with patient. Active Medications Acetaminophen (Acetaminophen Tab 500 Mg Tab) 1,000 mg PO Q6H PRN PRN Reason: Fever and/ or Pain Acetaminophen (Acetaminophen Tab 500 Mg Tab) 1,000 mg PO HS FANNY Last Admin: 05/22/22 20:35 Dose: 1,000 mg Hydrocodone Bitart/Acetaminophen (Hydrocodone/Apap 7.5-325mg 1 Each Tab) 1 each PO Q6HR PRN PRN Reason: Pain Last Admin: 05/23/22 10:10 Dose: 1 each Apixaban (Apixaban 2.5 Mg Tablet) 2.5 mg PO BID FANNY; Protocol Last Admin: 05/23/22 10:11 Dose: 2.5 mg Aspirin (Aspirin 81 Mg) 81 mg PO DAILY [facility] Last Admin: 05/23/22 10:11 Dose: 81 mg Atorvastatin Calcium (Atorvastatin 40 Mg Tab) 40 mg PO HS [facility] Last Admin: 05/22/22 20:36 Dose: 40 mg Calcium Carbonate/Glycine (Calcium Carbonate 500 Mg Chewable) 1,000 mg PO ONCE PRN PRN Reason: Heartburn Carvedilol (Carvedilol 6.25 Mg Tab) 25 mg PO BID-W/MEALS [facility] Last Admin: 05/23/22 10:11 Dose: 25 mg Diltiazem HCl (Diltiazem Cd 180 Mg Cap.Er.24h) 180 mg PO DAILY [facility] Last Admin: 05/23/22 10:11 Dose: 180 mg Diphenhydramine HCl (Diphenhydramine 25 Mg Cap) 50 mg PO HS [facility] Last Admin: 05/22/22 20:36 Dose: 50 mg Diltiazem HCl 125 mg/ Sodium (Chloride) 125 mls @ 10 mls/hr IV .[id number] [facility] Last Admin: 05/23/22 14:10 Dose: Not Given Ibuprofen (Ibuprofen 200 Mg Tab) 200 mg PO Q6H PRN PRN Reason: Fever and/ or Pain Insulin Aspart (Insulin Aspart (Novolog) 100 Unit/Ml Vial) 0 unit SQ ACHS [facility]; Protocol Last Admin: 05/23/22 12:32 Dose: 5 unit Levothyroxine Sodium (Levothyroxine 100 Mcg Tab) 200 mcg PO DAILY@0630 [facility] Last Admin: 05/23/22 06:41 Dose: 200 mcg Metformin HCl (Metformin 500 Mg Tab) 500 mg PO TID-W/MEALS [facility] Last Admin: 05/23/22 12:31 Dose: 500 mg Multi-Ingred Cream/Lotion/Oil/Oint (Hydrophilic Cream 180 Gm Tube) 1 applic TOPICAL DAILY [facility]; Protocol Last Admin: 05/23/22 10:11 Dose: 1 applic Nitroglycerin (Nitroglycerin Sl Tabs 0.4 Mg Tab) 0.4 mg SUBLINGUAL Q5M PRN PRN Reason: Chest Pain Nystatin (Nystatin 100,000unit/Gm Cream 30 Gm Tube) 1 applic TOPICAL BID PRN; Protocol PRN Reason: Rash Ondansetron HCl (Ondansetron 4 Mg/2 Ml Vial) 4 mg IVP Q6HR PRN PRN Reason: Nausea And Vomiting Last Admin: 05/20/22 15:06 Dose: 4 mg Oxybutynin Chloride (Oxybutynin 10 Mg Tab.Er.24) 10 mg PO DAILY [facility] Last Admin: 05/23/22 10:11 Dose: 10 mg Pantoprazole Sodium (Pantoprazole 40 Mg Tablet) 40 mg PO Q48H [facility] Last Admin: 05/22/22 08:52 Dose: 40 mg Past medical history to include: Atrial fibrillation, diabetes, GERD, hypertension, hypothyroid, ovarian cancer with chemo and radiation treatment. Depression. Social history: Lives alone in an apartment. Does use a walker and cane. Patient started smoking as a teenager and stopped in 1994. No alcohol. Family history: Father of lung cancer Physical examination: VITAL SIGNS: 97.9, 76, 18, 99/85, 90% room air GENERAL: laying in bed awake. Tired EYES: Pupils equal. Conjunctiva normal. HEENT: External appearance of nose and ears normal, oral cavity grossly normal. NECK: JVD unable to assess; masses not palpable. HEART: First and second heart sounds are normal; no edema. LUNGS: Respiratory rate normal; distant breath sound. ABDOMEN: Soft, nontender, liver spleen not palpable, no masses palpable. PSYCH: Alert and oriented x3; mood and affect a bit low MUSCULOSKELETAL:No Clubbing/cyanosis;muscles-grossly intact, evidence of OA NEUROLOGICAL: Decreased slurring of speech. Power and sensation grossly intact. Mouth slightly pulled to the left INVESTIGATIONS, reviewed in the clinical context: May 22: WBC 3.7 hemoglobin 10 platelets 188 I did 13% saturation 7.8 transferrin 116 MRI brain without contrast: Acute/subacute CVA of the left coronary radiata on the posterior aspect of the left frontal lobe. Nonspecific white matter changes. May 20: White count 7.9 hemoglobin 10 potassium 4.2 creatinine 1.02 White count was 5 hemoglobin 11.6 platelets 219 BUN 25 creatinine 0.90 Troponin I 0.334, 0.335 LDL 76 EKG tracing personally reviewed by me-nonspecific T-wave changes. Sinus rhythm CT brain: Mild atrophic CT angiography of the brain: Nonspecific 2-D echocardiogram: EF 55-60%, severe LVH Assessment and plan: -Acute stroke in the left johnston radiata on the posterior aspect of the left frontal lobe. suspected to be embolic from underlying paroxysmal atrial fibrillation, Follow with Neurology . Aspirin. Lipitor -Paroxysmal atrial fibrillation: Currently sinus rhythm Started on eliquis. Discussed with patient. Will discontinue if any vaginal bleeding recurs -Multiple excoriations in the groin and perianal area from radiation Follow with wound care -Acute dysphagia from underlying stroke Seen by speech. Chopped diet -Morbid obesity BMI 57.8 Weight loss measures -GERD Prilosec 20 mg -Hypertensive heart disease On beta vel -Essential hypertension Coreg 25 mg twice a day, Cardizem LA 180 mg a day -Chronic urinary stress incontinence Ditropan XL 10 mg a day -Hypothyroid Synthroid 200 g a day -Chronic gait dysfunction Uses a cane/walker at baseline -Troponin leak, likely from hemodynamic mismatch. No cardiac disease symptoms. Cardiology consulted Continue with current medications. No vaginal bleeding. Awaiting authorization to go to rehab. Discussed with patient. Oral intake better.
[2022-05-23 19:58] LABS: Glucose,Whole Blood 190 mg/dL (70-110)
[2022-05-23] MEDS: ACETAMINOPHEN TAB 500 MG TAB PO SCH (21:39)
[2022-05-23] MEDS: diphenhydrAMINE 25 MG CAP PO SCH (21:40)
[2022-05-23] MEDS: ATORVASTATIN 40 MG TAB PO SCH (21:40)
[2022-05-23 23:48] VITALS: RESP 16
[2022-05-24] MEDS: HYDROcodone/APAP 7.5-325MG 1 EACH TAB PO PRN ×3 (01:18→17:42)
[2022-05-24 06:02] LABS: Glucose,Whole Blood 152 mg/dL (70-110)
[2022-05-24] MEDS: carvediloL 6.25 MG TAB PO SCH ×2 (06:38→17:35)
[2022-05-24] MEDS: LEVOTHYROXINE 100 MCG TAB PO SCH (06:38)
[2022-05-24] MEDS: INSULIN ASPART (NovoLOG) 100 UNIT/ML VIAL SQ SCH ×3 (06:38→17:35)
[2022-05-24] MEDS: metFORMIN 500 MG TAB PO SCH ×3 (06:38→17:35)
[2022-05-24] MEDS: DILTIAZEM 125 MG in SODIUM CHLORIDE 0.9% 100 ML IV SCH ×2 (06:39→13:42)
[2022-05-24] MEDS: PANTOPRAZOLE 40 MG TABLET PO SCH (08:26)
[2022-05-24] MEDS: APIXABAN 2.5 MG TABLET PO SCH (08:26)
[2022-05-24] MEDS: DILTIAZEM CD 180 MG CAP.ER.24H PO SCH (08:26)
[2022-05-24] MEDS: ASPIRIN 81 MG PO SCH (08:26)
[2022-05-24] MEDS: OXYBUTYNIN 10 MG TAB.ER.24 PO SCH (08:26)
[2022-05-24] MEDS: HYDROPHILIC CREAM 180 GM TUBE TOPICAL SCH (08:30)
[2022-05-24 11:54] LABS: Glucose,Whole Blood 190 mg/dL (70-110)
--- NOTE | 2022-05-24 12:05 | P.PN ---
Subjective Progress Note Date: 05/24/22 This is a 61-year-old patient being seen on [address] for radiation mccartney to the periwound. 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 Patient states that the ulcerations have been there for approximately 4 months. Patient has multiple open ulcerations with ecchymosis and serous drainage noted to the abdomen, perineum, and groin. 05/24/2022: Was called to re-evaluate due to the wound worsening. The ulceration has declined, increase drainage and odor present. The ulceration size is the same, increase eschar, slough and non-viable tissue presents. The periwound mery ws excoriation. No redness present or purulent drainage noted. Patient would benefit with advance wound care in an outpatient setting with weekly debridements and possible hyperbaric oxygen therapy. The abdomen ulceration measures approximately 6x12x0.1 cm - fat layer present, no granulation noted, slough and non-viable tissue present, a smaller ulceration is present with an approximate measurement is 1.1x1x0.4, fat layer present, slough and no granulation. Right hip ulceration was increase in size with increase ecchymosis noted, serous drainage, and slough. Review Of Systems: Constitutional: No fever, no chills, no night sweats. No weight change. No weakness, fatigue or lethargy. No daytime sleepiness. Integumentary:reports wounds, no lesions. No rash or pruritus. No unusual bruising. No change in hair or nails. Physical exam: General Appearance: Alert, cooperative, no distress, appears stated age. Skin: See HPI all other Skin color, texture, tugor normal, no rashes or lesions. Neurologic: Alert oriented x3 Assessment: 1. Multiple open ulcerations with fat layer exposure related to radiation and chemo. 2. Soft tissue radionecrosis Plan: 1. abdomen, perineum and groin: Apply absorptive silver dry to the site, triad to the periwound, ABD and medipore tape to secure. Use skin prep. Change saturday, , and saturday. 2. Patient would benefit from continued advanced wound care and outpatient setting where she can have weekly debridement and possible hyperbaric oxygen therapy. Patient has seen Dr. Thompson in the past like to follow up with him upon discharge. If he is unable to accommodate we will be happy to see her in the wound care center. Thank you for the consultation any questions was contact the wound care center DNP note has been reviewed and discussed with Dr. Jimenez and the impression and plan of care has been directed as dictated. Objective - Vital Signs Vital signs: Vital Signs Temp 98.0 F 05/24/22 08:13 Pulse 88 05/24/22 08:13 Resp 16 05/24/22 08:13 BP 110/69 05/24/22 08:13 Pulse Ox 95 05/24/22 08:13 FiO2 Intake & Output 05/23/22 05/24/22 05/24/22 18:59 06:59 18:59 Intake Total 118 Output Total 1 Balance -1 118 Intake: Oral 118 Output: Urine/Stool Mix 1 Other: Voiding Method Bedpan Bedpan Diaper Diaper Diaper External Catheter External Catheter # Voids 1 - Labs CBC & Chem 7: 05/22/22 07:00 05/20/22 07:52 Labs: Abnormal Lab Results - Last 24 Hours (Table) 05/23/22 05/23/22 05/24/22 Range/Units 16:35 19:56 06:01 POC Glucose (mg/dL) 177 H 190 H 152 H (70-110) mg/dL Assessment and Plan (1) Non-healing ulcer of multiple sites with fat layer exposed Current Visit: Yes Status: Acute Code(s): L98.492 - NON-PRS CHRONIC ULCER OF SKIN OF SITES W FAT LAYER EXPOSED SNOMED Code(s): 55493669 (2) Soft tissue radionecrosis Current Visit: Yes Status: Acute Priority: High Code(s): L59.8 - OTH DISRD OF THE SKIN, SUBCU RELATED TO RADIATION; Y84.2 - RADIOLOG PROC/RADIOTHRPY CAUSE ABN REACT/COMPL, W/O MISADVNT SNOMED Code(s): 94466092
--- NOTE | 2022-05-24 14:18 | P.DS ---
Providers Date of admission: 05/18/22 18:18 Expected date of discharge: 05/24/22 Attending physician: Jerry Torrez Consults: 05/18/22 18:18 Consult Physician Routine Consulting Provider: Juaquin Chase Consult Reason/Comments: CVA Do you want consulting provider notified?: Yes Consult Physician Routine Consulting Provider: Sp Farmer Consult Reason/Comments: Elevated troponin Do you want consulting provider notified?: Yes 05/19/22 15:33 Consult Physician Stat Consulting Provider: Aaron Fountain Consult Reason/Comments: ovarian CA with vaginal bleeding Do you want consulting provider notified?: Yes 05/19/22 20:30 Consult Physician Routine Consulting Provider: Stephan Shoemaker Consult Reason/Comments: Status post radiation pelvis Do you want consulting provider notified?: Yes Primary care physician: [facility] Course: Chief Complaint: Dysarthria This is a pleasant 61-year-old patient, follows with Dr. Smooth Bob. Chronic stable medical conditions include diabetes, GERD, essential hypertension, hypothyroid. Chronic low back pain. Ovarian cancer treatment for chemo and radiation treatment. Patient at baseline uses a walker and a cane. Patient presented to ER with some right foot numbness. In the ER patient developed dysarthria. Computed tomography scan brain was unremarkable.. Neurology consulted. Patient's INR was 1. Sinus rhythm. Neurology was consulted. No weakness in the arms and legs otherwise. No headache. No change in vision. This morning speech remains slurred. May 20: 2 bouts of vomiting. Some choking. Diet changed to applesauce with medications. Modified barium swallow ordered. Discussed with patient. May 21: Speech therapy not available today hence modified barium swallow could not be done. Tolerating applesauce. Speech remains slurred. May 22: Patient has multiple open ulcerations with ecchymosis and serous drainage in the abdomen perineum and groin from radiation. Wound care is following the same. Speech remains slurred. Eliquis was started by cardiology. Discussed with the patient. She understands that eliquis is required. Any further vaginal bleeding that eliquis to be discontinued. As per the nurse, oral intake minimal as does not like the food. Told the nurse to have dietitian and, the patient. On a ground diet. MRI brain did confirm a left coronara radiata stroke. May 23: Some improvement in speech. Oral intake better. Pending authorization to go to rehab. Discussed with patient. May 24: Perineum wounds was evaluated by Neha from wound care. Discussed with her. No need for debridement. Patient was to follow-up with Dr. Pedroza and wound care center. Oral intake fair. Speech has been better. It is felt patient can continue on eliquis. DC aspirin. Eliquis will have to be discontinued if there is any significant vaginal bleeding. Also discussed with PLANT MAINTENANCE MECHANIC Gabby from oncology. Patient has 2 more treatments of chemotherapy that'll be held until patient's physically stronger after rehab. Wound care to continue. Discussed with patient. Discussion and discharge planning more than 35 minutes Past medical history to include: Atrial fibrillation, diabetes, GERD, hypertension, hypothyroid, ovarian cancer with chemo and radiation treatment. Depression. Social history: Lives alone in an apartment. Does use a walker and cane. Patient started smoking as a teenager and stopped in 1994. No alcohol. Family history: Father of lung cancer Physical examination: VITAL SIGNS: 98, 88, 16, 110/69, 95% room air GENERAL: laying in bed awake. Comfortable EYES: Pupils equal. Conjunctiva normal. HEENT: External appearance of nose and ears normal, oral cavity grossly normal. NECK: JVD unable to assess; masses not palpable. HEART: First and second heart sounds are normal; no edema. LUNGS: Respiratory rate normal; distant breath sound. ABDOMEN: Soft, nontender, liver spleen not palpable, no masses palpable. Perianal wounds C wound care notes. PSYCH: Alert and oriented x3; mood and affect a bit low MUSCULOSKELETAL:No Clubbing/cyanosis;muscles-grossly intact, evidence of OA NEUROLOGICAL: Slurred speech improvement. Power and sensation grossly intact. Mouth slightly pulled to the left INVESTIGATIONS, reviewed in the clinical context: May 22: WBC 3.7 hemoglobin 10 platelets 188 I did 13% saturation 7.8 transferrin 116 MRI brain without contrast: Acute/subacute CVA of the left coronary radiata on the posterior aspect of the left frontal lobe. Nonspecific white matter changes. May 20: White count 7.9 hemoglobin 10 potassium 4.2 creatinine 1.02 White count was 5 hemoglobin 11.6 platelets 219 BUN 25 creatinine 0.90 Troponin I 0.334, 0.335 LDL 76 EKG tracing personally reviewed by me-nonspecific T-wave changes. Sinus rhythm CT brain: Mild atrophic CT angiography of the brain: Nonspecific 2-D echocardiogram: EF 55-60%, severe LVH Assessment and plan: -Acute stroke in the left johnston radiata on the posterior aspect of the left frontal lobe. suspected to be embolic from underlying paroxysmal atrial fibrillation, Eliquis started. No aspirin. Because of bleeding. Risk -Paroxysmal atrial fibrillation: Currently sinus rhythm eliquis. Discussed with patient. Will discontinue if any vaginal bleeding recurs -Multiple excoriations in the groin and perianal area from radiation Follow with wound care center with Dr. stout/patient request as she is followed with him before. Patient was seen by the wound care team here. -Acute dysphagia from underlying stroke : Better Seen by speech. Chopped diet -Morbid obesity BMI 57.8 Weight loss measures -GERD Prilosec 20 mg -Hypertensive heart disease Coreg 25 mg twice a day. Cardizem CD 180 mg a day. -Essential hypertension Coreg 25 mg twice a day, Cardizem LA 180 mg a day -Chronic urinary stress incontinence Ditropan XL 10 mg a day -Hypothyroid Synthroid 200 g a day -Chronic gait dysfunction Uses a cane/walker at baseline -Troponin leak, likely from hemodynamic mismatch. No cardiac disease symptoms. No further intervention. Disposition: [facility] Plan - Discharge Summary Discharge Rx Participant: No New Discharge Prescriptions: New Apixaban [Eliquis] 2.5 mg PO BID tab Atorvastatin [Lipitor] 40 mg PO HS tab INSULIN ASPART (NovoLOG) [NovoLOG (formulary)] 0 unit SQ ACHS each Continue Nystatin 100,000Unit/gm Cream [Mycostatin Cream] 1 applic TOPICAL BID PRN PRN Reason: Rash Acetaminophen Tab [Tylenol] 1,000 mg PO Q6H PRN PRN Reason: Fever And/ Or Pain Omeprazole Magnesium [PriLOSEC OTC] 20 mg PO Q48H metFORMIN HCL ER [Glucophage XR] 500 mg PO TID-W/MEALS HYDROcodone/APAP 7.5-325MG [Fossil 7.5-325] 1 tab PO Q6HR PRN 3 Days #12 tab PRN Reason: Pain Nitroglycerin Sl Tabs [Nitrostat] 0.4 mg SL Q5M PRN PRN Reason: Chest Pain Levothyroxine Sodium 200 mcg PO DAILY dilTIAZem HCL [Cardizem LA] 180 mg PO DAILY carvediloL [Coreg] 25 mg PO BID Oxybutynin ER [Ditropan Xl] 10 mg PO DAILY Acetaminophen/Diphenhydramine [Tylenol PM 500-25mg] 2 tab PO HS #7 tab Discontinued Gabapentin [Neurontin] 100 mg PO TID PRN PRN Reason: Pain Ibuprofen [Motrin Ib] 200 - 400 mg PO Q6H PRN PRN Reason: Fever And/ Or Pain Warfarin Sodium 6 mg PO HS Discharge Medication List Levothyroxine Sodium 200 mcg PO DAILY 10/10/21 [History] Nitroglycerin Sl Tabs [Nitrostat] 0.4 mg SL Q5M PRN 10/10/21 [History] Nystatin 100,000Unit/gm Cream [Mycostatin Cream] 1 applic TOPICAL BID PRN 10/10/21 [History] Acetaminophen Tab [Tylenol] 1,000 mg PO Q6H PRN 05/18/22 [History] Omeprazole Magnesium [PriLOSEC OTC] 20 mg PO Q48H 05/18/22 [History] Oxybutynin ER [Ditropan Xl] 10 mg PO DAILY 05/18/22 [History] carvediloL [Coreg] 25 mg PO BID 05/18/22 [History] dilTIAZem HCL [Cardizem LA] 180 mg PO DAILY 05/18/22 [History] metFORMIN HCL ER [Glucophage XR] 500 mg PO TID-W/MEALS 05/18/22 [History] Acetaminophen/Diphenhydramine [Tylenol PM 500-25mg] 2 tab PO HS #7 tab 05/23/22 [Rx] Apixaban [Eliquis] 2.5 mg PO BID tab 05/23/22 [Rx] Atorvastatin [Lipitor] 40 mg PO HS tab 05/23/22 [Rx] HYDROcodone/APAP 7.5-325MG [Fossil 7.5-325] 1 tab PO Q6HR PRN 3 Days #12 tab 05/23/22 [Rx] INSULIN ASPART (NovoLOG) [NovoLOG (formulary)] 0 unit SQ ACHS each 05/23/22 [Rx] Follow up Appointment(s)/Referral(s): Smooth Bob MD [Primary Care Provider] - 1-2 days (please call to make an appointment.) Norah Rose MD [Medical Doctor] - 2 Weeks (Please call to make an appointment. Office requests patient to call.) Patient Instructions/Handouts: Stroke (DC) Activity/Diet/Wound Care/Special Instructions: follow at wound care center with dr stout
[2022-05-24 14:36] VITALS: BP 106/69; PULSE 86; TEMP 98.3
--- NOTE | 2022-05-24 14:37 | P.PN ---
Subjective Progress Note Date: 05/24/22 Principal diagnosis: Carcinosarcoma of uterus, new CVA Patient seen and examined this am, Assessment of panus fold and labia with odoress, 4-5 inch necrotic, green, and purulent drainage Objective - Vital Signs Vital signs: Vital Signs Temp 98.0 F 05/24/22 08:13 Pulse 88 05/24/22 08:13 Resp 16 05/24/22 08:13 BP 110/69 05/24/22 08:13 Pulse Ox 95 05/24/22 08:13 FiO2 Intake & Output 05/23/22 05/24/22 05/24/22 18:59 06:59 18:59 Intake Total 118 Output Total 1 Balance -1 118 Intake: Oral 118 Output: Urine/Stool Mix 1 Other: Voiding Method Bedpan Bedpan Diaper Diaper Diaper External Catheter External Catheter # Voids 1 1 - Exam - Constitutional General appearance: cooperative - EENT Eyes: EOMI ENT: NA/AT - Neck Neck: normal ROM - Cardiovascular Rhythm: regularly irregular - Gastrointestinal General gastrointestinal: distended, soft - Integumentary Labile excoriation, erythema, necrosis, purulent pseudomonas suspected. Integumentary: pale - Musculoskeletal Musculoskeletal: generalized weakness Slurred unilateral - Labs CBC & Chem 7: 05/22/22 07:00 05/20/22 07:52 Labs: Abnormal Lab Results - Last 24 Hours (Table) 05/23/22 05/23/22 05/24/22 Range/Units 16:35 19:56 06:01 POC Glucose (mg/dL) 177 H 190 H 152 H (70-110) mg/dL 05/24/22 Range/Units 11:51 POC Glucose (mg/dL) 190 H (70-110) mg/dL Assessment and Plan Plan: Acute CVA: - Neurology Follow Uterine Carcinosarcoma: - Status post Frankie-adjuvant Cycle 6 Day One of Carbo, Taxol (Receives weekly [id number]) - She is status post Frankie-adjuvant pelvic radiation completed on 03/14/22 - Hold chemotherapy at this time Vaginal bleeding resulting in stopping AC therapy, no known vaginal bleeding since completion of radiation Will ask radiation oncology if any other contraindications or recommendations if recurrent bleeding once AC restarted Review of cardiology note regarding DOAC, agree to move forward with AC therapy as since pelvic radiation vaginal bleeding has not recurred. we can continue with monitoring Iron studies and cbc closley to discontinue if concern presents. Anemia is secondary to recent vaginal blood loss. Discharge is planned today, will hold chemotherapy last two treatments until performance is improved. Can follow-up for weekly labs and see Dr. hunter in a couple weeks Right abdominal lymphadenopathy and Panus Fold Wounds - Cultures of open areas ordered - Suspected pseudomonas odor and greenish purulent drainage - Rec cipro at discharge - Wound care to follow-discussed with RN and with Primary team
[2022-05-24 16:43] LABS: Glucose,Whole Blood 166 mg/dL (70-110)
== END 2022-05-24 18:20 | DRG 64 ==
LOC: EC 11:36 → 3SCARD 18:18
PROVIDERS: ADMIT Hospitalist; ATTEND Hospitalist
DX: I63.40 Cerebral infarction due to embolism of unspecified cerebral artery (principal); I21.A1 Myocardial infarction type 2; C56.9 Malignant neoplasm of unspecified ovary; Z68.43 Body mass index [BMI] 50.0-59.9, adult; I47.2 Ventricular tachycardia; L97.819 Non-pressure chronic ulcer of other part of right lower leg with unspecified severity; I48.0 Paroxysmal atrial fibrillation; G31.89 Other specified degenerative diseases of nervous system; C54.1 Malignant neoplasm of endometrium; E11.9 Type 2 diabetes mellitus without complications; E66.01 Morbid (severe) obesity due to excess calories; L98.492 Non-pressure chronic ulcer of skin of other sites with fat layer exposed; L59.8 Other specified disorders of the skin and subcutaneous tissue related to radiation; T45.1X5A Adverse effect of antineoplastic and immunosuppressive drugs, initial encounter; R47.1 Dysarthria and anarthria; R29.810 Facial weakness; R47.01 Aphasia; E83.51 Hypocalcemia; E83.42 Hypomagnesemia; R13.10 Dysphagia, unspecified; I49.3 Ventricular premature depolarization; R26.9 Unspecified abnormalities of gait and mobility; R01.1 Cardiac murmur, unspecified; D50.0 Iron deficiency anemia secondary to blood loss (chronic); I25.10 Atherosclerotic heart disease of native coronary artery without angina pectoris; E78.5 Hyperlipidemia, unspecified; N39.3 Stress incontinence (female) (male); K21.9 Gastro-esophageal reflux disease without esophagitis; E03.9 Hypothyroidism, unspecified; G89.29 Other chronic pain; M54.50 Low back pain, unspecified; M79.604 Pain in right leg; M79.605 Pain in left leg; Z88.8 Allergy status to other drugs, medicaments and biological substances; F32.A Depression, unspecified; Z79.890 Hormone replacement therapy; Z79.84 Long term (current) use of oral hypoglycemic drugs; Z79.01 Long term (current) use of anticoagulants; Z79.899 Other long term (current) drug therapy; Z85.42 Personal history of malignant neoplasm of other parts of uterus; Z87.440 Personal history of urinary (tract) infections; Z87.891 Personal history of nicotine dependence; Z92.3 Personal history of irradiation; Z82.49 Family history of ischemic heart disease and other diseases of the circulatory system; Y84.2 Radiological procedure and radiotherapy as the cause of abnormal reaction of the patient, or of later complication, without mention of misadventure at the time of the procedure; Z79.82 Long term (current) use of aspirin; Z80.1 Family history of malignant neoplasm of trachea, bronchus and lung; Z85.43 Personal history of malignant neoplasm of ovary; Z87.81 Personal history of (healed) traumatic fracture
CPT/HCPCS: 36415; 70450; 70496; 70498; 70551; 71045; 80053; 80061; 82330; 82728; 83540; 83550; 83735; 83970; 84100; 84484; 85025; 85610; 85730; 86304; 93005; 93306; 96365; 96375; 99285

== ENCOUNTER 2022-05-25 13:53 | Inpatient (IN) | payer MEDICARE, OTHER ==
--- NOTE | 2022-05-25 14:12 | ED ---
General Adult HPI - General Stated complaint: Infection Time Seen by Provider: 05/25/22 13:54 Source: patient, EMS Mode of arrival: EMS Limitations: no limitations - History of Present Illness Initial comments: Patient is a pleasant 59-year-old female presenting to the emergency department with concern for infection. Patient does have history of pelvic cancer and history of radiation to that area. Patient does have wounds on her right groin. Patient recently went back to [facility]. Patient is unclear why she was recently in the hospital. Nurse had concerns regarding patient's wound. No discomfort. - Related Data Home Medications Medication Instructions Recorded Confirmed Levothyroxine Sodium 200 mcg PO DAILY 10/10/21 05/25/22 Nitroglycerin Sl Tabs [Nitrostat] 0.4 mg SL Q5M PRN 10/10/21 05/25/22 Nystatin 100,000Unit/gm Cream 1 applic TOPICAL BID PRN 10/10/21 05/25/22 [Mycostatin Cream] Acetaminophen Tab [Tylenol] 1,000 mg PO Q6H PRN 05/18/22 05/25/22 Omeprazole Magnesium [PriLOSEC OTC] 20 mg PO DAILY 05/18/22 05/25/22 Oxybutynin ER [Ditropan Xl] 10 mg PO DAILY 05/18/22 05/25/22 carvediloL [Coreg] 25 mg PO BID 05/18/22 05/25/22 dilTIAZem HCL [Cardizem LA] 180 mg PO DAILY 05/18/22 05/25/22 metFORMIN HCL ER [Glucophage XR] 500 mg PO TID-W/MEALS 05/18/22 05/25/22 INSULIN ASPART (NovoLOG) [NovoLOG 5 unit SQ ACHS 05/25/22 05/25/22 (formulary)] Previous Rx's Medication Instructions Recorded Acetaminophen/Diphenhydramine 2 tab PO HS #7 tab 05/23/22 [Tylenol PM 500-25mg] Apixaban [Eliquis] 2.5 mg PO BID tab 05/23/22 Atorvastatin [Lipitor] 40 mg PO HS tab 05/23/22 HYDROcodone/APAP 7.5-325MG [[place] 1 tab PO Q6HR PRN 3 Days #12 tab 05/23/22 7.5-325] Allergies Allergy/AdvReac Type Severity Reaction Status Date / Time apixaban [From Eliquis] AdvReac Unsure, Verified 05/25/22 15:34 told by Asphalt [employer] Operator not to take Review of Systems ROS Statement: Those systems with pertinent positive or pertinent negative responses have been documented in the HPI. ROS Other: All systems not noted in ROS Statement are negative. Constitutional: Denies: fever Eyes: Denies: eye pain ENT: Denies: ear pain Respiratory: Denies: cough Cardiovascular: Denies: chest pain Endocrine: Denies: fatigue Gastrointestinal: Denies: abdominal pain Genitourinary: Denies: dysuria Musculoskeletal: Denies: back pain Skin: Reports: as per HPI, rash Neurological: Denies: weakness Past Medical History Past Medical History: Atrial Fibrillation, Cancer, Diabetes Mellitus, GERD/Reflux, Hypertension, Thyroid Disorder Additional Past Medical History / Comment(s): Pt states she has had intermittent vaginal bleeding over past one year, NIDDM type II, UTIs, hypothyroid, chronic low back pain, occasional bilateral leg pain at night. Ovarian cancer with chemo and radiation. History of Any Multi-Drug Resistant Organisms: None Reported Past Surgical History: Heart Catheterization, Tonsillectomy, Uterine Ablation Additional Past Surgical History / Comment(s): Nasal fracture with surgery, wisdom teeth extractions. Past Anesthesia/Blood Transfusion Reactions: Postoperative Nausea & Vomiting (PONV) Additional Past Anesthesia/Blood Transfusion Reaction / Comment(s): Pt received blood this hospitalization without reaction. Past Psychological History: Depression Additional Psychological History / Comment(s): Pt resides alone in an apartment. She uses a walker or cane. She drives. Smoking Status: Former smoker Past Alcohol Use History: None Reported Additional Past Alcohol Use History / Comment(s): PT started smoking as a teen and quit in 1994. Past Drug Use History: None Reported - Past Family History Father Family Medical History: Cancer Additional Family Medical History / Comment(s): Father of lung cancer. He was a smoker. Mother Family Medical History: Vascular Disorder Additional Family Medical History / Comment(s): Mother of a cerebral aneurysm at the age of 58 yrs. General Exam Limitations: no limitations General appearance: alert, in no apparent distress, obese Head exam: Present: normocephalic Eye exam: Present: normal appearance ENT exam: Present: mucous membranes dry Neck exam: Present: normal inspection Respiratory exam: Present: normal lung sounds bilaterally Cardiovascular Exam: Present: regular rate, irregular rhythm GI/Abdominal exam: Present: soft. Absent: tenderness Extremities exam: Present: normal inspection Neurological exam: Present: alert Psychiatric exam: Present: normal affect, normal mood Skin exam: Present: other (Right groin with approximately 4-5 large wounds with eschar formation. Positive foul older.) Course Vital Signs 05/25/22 13:59 Temperature 97.9 F Pulse Rate 92 Respiratory 20 Rate Blood Pressure 112/70 O2 Sat by Pulse 96 Oximetry EKG Findings - EKG Comments: EKG Findings:: A. fib rate 87. QRS 110. QT 375. QTC 419. Left axis. Normal QRS. No acute ST change. Medical Decision Making - Medical Decision Making Case was discussed twice with Dr. Torrez. Unable to get a hold of Neha from the wound center. I did also speak with Dr. Cardona was not available at this time. Again discussed with Dr. Torrez will admit covering Dr. Bob with consult with surgery and Dr. Thompson. - Lab Data Result diagrams: 05/25/22 14:20 05/25/22 14:20 Lab Results 05/25/22 05/25/22 05/25/22 Range/Units 14:20 14:20 14:20 WBC 9.4 (3.8-10.6) k/uL RBC 3.57 L (3.80-5.40) m/uL Hgb 11.0 L (11.4-16.0) gm/dL Hct 33.6 L (34.0-46.0) % MCV 94.1 (80.0-100.0) fL MCH 30.8 (25.0-35.0) pg MCHC 32.7 (31.0-37.0) g/dL RDW 16.7 H (11.5-15.5) % Plt Count 356 (150-450) k/uL MPV 9.2 Neutrophils % 90 % Lymphocytes % 3 % Monocytes % 6 % Eosinophils % 1 % Basophils % 0 % Neutrophils # 8.5 H (1.3-7.7) k/uL Lymphocytes # 0.3 L (1.0-4.8) k/uL Monocytes # 0.5 (0-1.0) k/uL Eosinophils # 0.1 (0-0.7) k/uL Basophils # 0.0 (0-0.2) k/uL Hypochromasia Slight Anisocytosis Slight PT 11.5 (9.0-12.0) sec INR 1.1 (<1.2) APTT 27.6 (22.0-30.0) sec Sodium 130 L (137-145) mmol/L Potassium 5.2 H (3.5-5.1) mmol/L Chloride 101 (98-107) mmol/L Carbon Dioxide 22 (22-30) mmol/L Anion Gap 7 mmol/L BUN 37 H (7-17) mg/dL Creatinine 0.90 (0.52-1.04) mg/dL Est GFR (CKD-EPI)AfAm 80 (>60 ml/min/1.73 sqM) Est GFR (CKD-EPI)NonAf 69 (>60 ml/min/1.73 sqM) Glucose 187 H (74-99) mg/dL Plasma Lactic Acid James (0.7-2.0) mmol/L Calcium 8.1 L (8.4-10.2) mg/dL Total Bilirubin 0.7 (0.2-1.3) mg/dL AST 30 (14-36) U/L ALT 13 (4-34) U/L Alkaline Phosphatase 89 (38-126) U/L Total Protein 5.7 L (6.3-8.2) g/dL Albumin 2.6 L (3.5-5.0) g/dL 05/25/22 Range/Units 14:20 WBC (3.8-10.6) k/uL RBC (3.80-5.40) m/uL Hgb (11.4-16.0) gm/dL Hct (34.0-46.0) % MCV (80.0-100.0) fL MCH (25.0-35.0) pg MCHC (31.0-37.0) g/dL RDW (11.5-15.5) % Plt Count (150-450) k/uL MPV Neutrophils % % Lymphocytes % % Monocytes % % Eosinophils % % Basophils % % Neutrophils # (1.3-7.7) k/uL Lymphocytes # (1.0-4.8) k/uL Monocytes # (0-1.0) k/uL Eosinophils # (0-0.7) k/uL Basophils # (0-0.2) k/uL Hypochromasia Anisocytosis PT (9.0-12.0) sec INR (<1.2) APTT (22.0-30.0) sec Sodium (137-145) mmol/L Potassium (3.5-5.1) mmol/L Chloride (98-107) mmol/L Carbon Dioxide (22-30) mmol/L Anion Gap mmol/L BUN (7-17) mg/dL Creatinine (0.52-1.04) mg/dL Est GFR (CKD-EPI)AfAm (>60 ml/min/1.73 sqM) Est GFR (CKD-EPI)NonAf (>60 ml/min/1.73 sqM) Glucose (74-99) mg/dL Plasma Lactic Acid James 1.8 (0.7-2.0) mmol/L Calcium (8.4-10.2) mg/dL Total Bilirubin (0.2-1.3) mg/dL AST (14-36) U/L ALT (4-34) U/L Alkaline Phosphatase (38-126) U/L Total Protein (6.3-8.2) g/dL Albumin (3.5-5.0) g/dL Disposition Clinical Impression: Non-healing ulcer of multiple sites with fat layer exposed Disposition: ADMITTED IP TO THIS HOSP Is patient prescribed a controlled substance at d/c from ED?: No Referrals: Smooth Bob MD [Primary Care Provider] - 1-2 days Time of Disposition: 15:47
[2022-05-25] MEDS: SODIUM CHLORIDE 0.9% 1,000 ML IV SCH (14:34)
[2022-05-25 15:03] LABS: Anisocytosis Slight; Basophils % (A) 0 %; Eosinophils # (A) 0.1 k/uL (0-0.7); Eosinophils % (A) 1 %; HCT 33.6 % (34.0-46.0); Hypochromasia Slight; Lymphocytes # (A) 0.3 k/uL (1.0-4.8); Lymphocytes % (A) 3 %; MCH 30.8 pg (25.0-35.0); MCHC 32.7 g/dL (31.0-37.0); MCV 94.1 fL (80.0-100.0); Mean Platelet Volume 9.2; Monocytes # (A) 0.5 k/uL (0-1.0); Monocytes % (A) 6 %; Neutrophils # (A) 8.5 k/uL (1.3-7.7); Neutrophils % (A) 90 %; Platelet Count 356 k/uL (150-450); RBC 3.57 m/uL (3.80-5.40); RDW 16.7 % (11.5-15.5); WBC 9.4 k/uL (3.8-10.6)
[2022-05-25 15:10] LABS: INR 1.1 (<1.2); Partial Thromboplastin Time 27.6 sec (22.0-30.0); Prothrombin Time 11.5 sec (9.0-12.0)
[2022-05-25 15:19] LABS: Albumin 2.6 g/dL (3.5-5.0); Calcium 8.1 mg/dL (8.4-10.2); Total Bilirubin 0.7 mg/dL (0.2-1.3); Total Protein 5.7 g/dL (6.3-8.2)
[2022-05-25 15:25] LABS: Potassium 5.2 mmol/L (3.5-5.1)
[2022-05-25] MEDS ORDERED: NALOXONE 0.4 MG/ML 1 ML VIAL IV PRN (15:47)
[2022-05-25] MEDS ORDERED: VANCOMYCIN IV PER PHARMACY 1 EACH MISC MISCELLANE PRN (15:53)
[2022-05-25] MEDS ORDERED: ACETAMINOPHEN TAB 500 MG TAB PO PRN (15:54)
--- NOTE | 2022-05-25 15:57 | XR ---
EXAMINATION TYPE: XR Hip RT and AP Pelvis DATE OF EXAM: 05/25/2022 3:39 PM INDICATION: Patient age:Female; 61 years old; Reason for study: infection; COMPARISON: None. TECHNIQUE: The right hip was examined in the frontal and lateral projections and a AP pelvis. FINDINGS: No evidence of osseous erosion. Hazy appearance to the subcutaneous soft tissues with some lucencies over the right proximal thigh. No evidence of any acute osseous pathology or joint dislocat ion. IMPRESSION: 1. No acute osseous pathology. 2. No evidence of osseous erosion to suggest sesamoiditis. 3. Subcutaneous lucencies suggestive of provided history of infection. Consider correlation with CT if there is concern for subcutaneous gas.
[2022-05-25] MEDS ORDERED: NITROGLYCERIN SL TABS 0.4 MG TAB SUBLINGUAL PRN (16:06)
[2022-05-25] MEDS ORDERED: VANCOMYCIN 2,000 MG in SODIUM CHLORIDE 0.9% 500 ML 500 ML IVPB ONE (16:30)
[2022-05-25] MEDS: PIPERACILLIN-TAZOBACTAM 3.375 GM in SODIUM CHLORIDE 0.9% 100 ML IVPB SCH (16:46)
[2022-05-25] MEDS ORDERED: CALCIUM CARBONATE 500 MG CHEWABLE PO PRN (17:39)
[2022-05-25] MEDS ORDERED: ACETAMINOPHEN TAB 325 MG TAB PO PRN (17:39)
[2022-05-25] MEDS ORDERED: LORazepam 0.5 MG TAB PO PRN (17:39)
[2022-05-25] MEDS ORDERED: LACTULOSE 20 GM/30 ML CUP PO PRN (17:39)
[2022-05-25] MEDS ORDERED: ONDANSETRON 4 MG/2 ML VIAL IVP PRN (17:39)
[2022-05-25] MEDS ORDERED: TEMAZEPAM 15 MG CAP PO PRN (17:39)
--- NOTE | 2022-05-25 17:42 | P.HPIM ---
History of Present Illness H&P Date: 05/25/22 Chief Complaint: wounds This is a pleasant 61-year-old patient, follows with Dr. Smooth Bob. Chronic stable medical conditions include diabetes, GERD, essential hypertension, hypothyroid. Chronic low back pain. Ovarian cancer treatment for chemo and radiation treatment. Patient at baseline uses a walker and a cane. Was recently in the hospital from May 19 through May 24. Patient presented to ER with some right foot numbness. Patient was dysarthric. Stroke found in the left coronary radiata on the posterior aspect of left frontal lobe. Patient was seen by speech. Was starting a diet. Patient in September 2021 was having significant vaginal bleeding. 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 No metastatic disease. She was not felt to be surgical candidate and was to receive 3 cycles of carboplatin/Taxol followed by radiation and 3 additional cycles of the above. She completed radiation on 03/14/2022. Started back on the carbotaxol April 03 and was status post cycle 6 day 1 on May 16. Patient during this admission was started on eliquis with the decision if the patient was to bleed then eliquis be discontinued. Yesterday the patient was noted to have more perianal wounds. Was being followed by wound care. Was evaluated by Taye towards was stable and could be followed up outpatient with Dr. stout who the patient knows from before. Patient was sent in from [facility] today for worsening of the wounds. Area of eschar was present. Some drainage. odor to it. No fever and chills. Appetite fair. Review of systems: GEN.: Tired EYES: None HEENT: None NECK: None RESPIRATORY: None CARDIOVASCULAR: None GASTROINTESTINAL: None GENITOURINARY: None MUSCULOSKELETAL: Joint pains LYMPHATICS: None HEMATOLOGICAL: None PSYCHIATRY: None NEUROLOGICAL: Slurred speech Past medical history to include: Atrial fibrillation, diabetes, GERD, hypertension, hypothyroid, ovarian cancer with chemo and radiation treatment. Depression. Social history: Was discharged to rehab yesterday. Does use a walker and cane. Patient started smoking as a teenager and stopped in 1994. No alcohol. Family history: Father of lung cancer Physical examination: VITAL SIGNS: 97.9, 82, 18, 12/07/1979, 95% room air GENERAL: laying in bed awake. Not in distress EYES: Pupils equal. Conjunctiva normal. HEENT: External appearance of nose and ears normal, oral cavity grossly normal. NECK: JVD unable to assess; masses not palpable. HEART: First and second heart sounds are normal; no edema. LUNGS: Respiratory rate normal; distant breath sound. ABDOMEN: Soft, nontender, liver spleen not palpable, no masses palpable. Perianal wounds C wound care notes. PSYCH: Alert and oriented x3; mood and affect a bit low MUSCULOSKELETAL:No Clubbing/cyanosis;muscles-grossly intact, evidence of OA DERMATOLOGICAL: wounds. Strong order. More detailed and nursing notes NEUROLOGICAL: Slurred speech . Power and sensation grossly intact. Mouth slightly pulled to the left INVESTIGATIONS, reviewed in the clinical context: White count 9.4 hemoglobin 11 platelets 356 potassium 5.2 creatinine 0.9 EKG tracing personally reviewed by me-atrial fibrillation. Rate 87 From recent admission: MRI brain without contrast: Acute/subacute CVA of the left coronary radiata on the posterior aspect of the left frontal lobe. Nonspecific white matter changes. CT brain: Mild atrophic CT angiography of the brain: Nonspecific 2-D echocardiogram: EF 55-60%, severe LVH Assessment and plan: --Multiple superficial wounds in the area of the groin and perineal area. Including drainage and odor. Last admission patient was seen by wound care team Neha. Consultation to ID. -Acute stroke in the left [place] radiata on the posterior aspect of the left frontal lobe. suspected to be embolic from underlying paroxysmal atrial fibri llation, Eliquis No aspirin. -Paroxysmal atrial fibrillation: Currently sinus rhythm eliquis. -Acute dysphagia from underlying stroke : Chopped diet -Morbid obesity BMI 48.9 Weight loss measures -GERD Prilosec 20 mg -Hypertensive heart disease Coreg 25 mg twice a day. Cardizem CD 180 mg a day. -Essential hypertension Coreg 25 mg twice a day, Cardizem LA 180 mg a day -Chronic urinary stress incontinence Ditropan XL 10 mg a day -Hypothyroid Synthroid 200 g a day -Chronic gait dysfunction Uses a cane/walker at baseline Consultation to wound care/ID. Antibiotics started in the ER. Home medications reviewed. Care was discussed with the patient. Chopped diet. Past Medical History Past Medical History: Atrial Fibrillation, Cancer, Diabetes Mellitus, GERD/Reflux, Hypertension, Thyroid Disorder Additional Past Medical History / Comment(s): Pt states she has had intermittent vaginal bleeding over past one year, NIDDM type II, UTIs, hypothyroid, chronic low back pain, occasional bilateral leg pain at night. Ovarian cancer with chemo and radiation. History of Any Multi-Drug Resistant Organisms: None Reported Past Surgical History: Heart Catheterization, Tonsillectomy, Uterine Ablation Additional Past Surgical History / Comment(s): Nasal fracture with surgery, wisdom teeth extractions. Past Anesthesia/Blood Transfusion Reactions: Postoperative Nausea & Vomiting (PONV) Additional Past Anesthesia/Blood Transfusion Reaction / Comment(s): Pt received blood this hospitalization without reaction. Past Psychological History: Depression Additional Psychological History / Comment(s): Pt resides alone in an apartment. She uses a walker or cane. She drives. Smoking Status: Former smoker Past Alcohol Use History: None Reported Additional Past Alcohol Use History / Comment(s): PT started smoking as a teen and quit in 1994. Past Drug Use History: None Reported - Past Family History Father Family Medical History: Cancer Additional Family Medical History / Comment(s): Father of lung cancer. He was a smoker. Mother Family Medical History: Vascular Disorder Additional Family Medical History / Comment(s): Mother of a cerebral aneurysm at the age of 58 yrs. Medications and Allergies Home Medications Medication Instructions Recorded Confirmed Type Levothyroxine Sodium 200 mcg PO DAILY 10/10/21 05/25/22 History Nitroglycerin Sl Tabs [Nitrostat] 0.4 mg SL Q5M PRN 10/10/21 05/25/22 History Nystatin 100,000Unit/gm Cream 1 applic TOPICAL BID PRN 10/10/21 05/25/22 History [Mycostatin Cream] Acetaminophen Tab [Tylenol] 1,000 mg PO Q6H PRN 05/18/22 05/25/22 History Omeprazole Magnesium [PriLOSEC OTC] 20 mg PO DAILY 05/18/22 05/25/22 History Oxybutynin ER [Ditropan Xl] 10 mg PO DAILY 05/18/22 05/25/22 History carvediloL [Coreg] 25 mg PO BID 05/18/22 05/25/22 History dilTIAZem HCL [Cardizem LA] 180 mg PO DAILY 05/18/22 05/25/22 History metFORMIN HCL ER [Glucophage XR] 500 mg PO TID-W/MEALS 05/18/22 05/25/22 History Acetaminophen/Diphenhydramine 2 tab PO HS #7 tab 05/23/22 05/25/22 Rx [Tylenol PM 500-25mg] Apixaban [Eliquis] 2.5 mg PO BID tab 05/23/22 05/25/22 Rx Atorvastatin [Lipitor] 40 mg PO HS tab 05/23/22 05/25/22 Rx HYDROcodone/APAP 7.5-325MG [[place] 1 tab PO Q6HR PRN 3 Days #12 tab 05/23/22 05/25/22 Rx 7.5-325] INSULIN ASPART (NovoLOG) [NovoLOG 5 unit SQ ACHS 05/25/22 05/25/22 History (formulary)] Allergies Allergy/AdvReac Type Severity Reaction Status Date / Time apixaban [From Eliquis] AdvReac Unsure, Verified 05/25/22 15:34 told by Service Parts Driver not to take Physical Exam Vitals: Vital Signs Temp Pulse Resp BP Pulse Ox 05/25/22 15:47 89 18 129/73 95 05/25/22 13:59 97.9 F 92 20 112/70 96 Intake and Output 05/25/22 05/25/22 05/25/22 06:59 14:59 22:59 Other: Weight 141.521 kg Results CBC & Chem 7: 05/25/22 14:20 05/25/22 14:20 Labs: Abnormal Lab Results - Last 24 Hours (Table) 05/25/22 05/25/22 Range/Units 14:20 14:20 RBC 3.57 L (3.80-5.40) m/uL Hgb 11.0 L (11.4-16.0) gm/dL Hct 33.6 L (34.0-46.0) % RDW 16.7 H (11.5-15.5) % Neutrophils # 8.5 H (1.3-7.7) k/uL Lymphocytes # 0.3 L (1.0-4.8) k/uL Sodium 130 L (137-145) mmol/L Potassium 5.2 H (3.5-5.1) mmol/L BUN 37 H (7-17) mg/dL Glucose 187 H (74-99) mg/dL Calcium 8.1 L (8.4-10.2) mg/dL Total Protein 5.7 L (6.3-8.2) g/dL Albumin 2.6 L (3.5-5.0) g/dL
[2022-05-25 18:08] LABS: Glucose,Whole Blood 181 mg/dL (70-110)
[2022-05-25] MEDS: HYDROcodone/APAP 7.5-325MG 1 EACH TAB PO PRN (18:28)
[2022-05-25] MEDS: carvediloL 12.5 MG TAB PO SCH (18:28)
[2022-05-25] MEDS: metFORMIN 500 MG TAB PO SCH (18:28)
[2022-05-25] MEDS: INSULIN ASPART (NovoLOG) 100 UNIT/ML VIAL SQ SCH ×3 (18:28→21:30)
--- NOTE | 2022-05-25 18:50 | XR ---
EXAMINATION TYPE: XR chest 1V portable DATE OF EXAM: 05/25/2022 HISTORY: Shortness of breath. COMPARISON: 05/19/2022 TECHNIQUE: Single view of the chest is submitted. FINDINGS: Demonstrated are scattered senescent parenchymal change. There is no evidence for focal infiltrate. The heart is stable. Hilar and mediastinal structures are within normal limits. Degenerative changes are seen of the dorsal spine. IMPRESSION: 1. Chronic changes without evidence for acute pulmonary disease.
[2022-05-25] MEDS: ATORVASTATIN 40 MG TAB PO SCH (20:30)
[2022-05-25 20:51] LABS: Glucose,Whole Blood 194 mg/dL (70-110)
[2022-05-25] MEDS ORDERED: MORPHINE SULFATE 2 MG/ML SYRINGE IVP PRN (21:41)
--- NOTE | 2022-05-25 23:05 | P.CONS ---
History of Present Illness - Reason for Consult Consult date: 05/25/22 Right inguinal wound infection Requesting physician: Tom Gaytan - Chief Complaint Worsening wound to the right groin with pain x days - History of Present Illness Patient is a 61-year-old female with a past medical history significant for ovarian cancer for the patient has received chemoradiation therapy, also history of diabetes mellitus hypertension hypothyroidism patient was recently admitted at this facility from May 19 through the and has been evaluated and management for CVA patient also have a right groin wound that was managed by the wound care team, patient was discharged to the [facility] however the patient has been sent back to the ER within 24 hours concerning for the necrotic wounds and cellulitis patient currently denies having any fever or any chills patient be complaining of pain to the right groin wound area examined to be more of a sharp in nature about 7-8 out of 10 with no radiation and some controlled with the pain medication in the form of [place] patient complaining of some foul-smelling drainage and apparently has been getting worse for the last few days, patient on presentation to the hospital was afebrile no fever have been recorded subsequently patient did have a normal white count kidney function has been normal patient was started on vancomycin and Zosyn infectious disease was consulted for further management of antibiotic therapy Review of Systems Positive point has been mentioned in the HPI rest of the systems are negative Past Medical History Past Medical History: Atrial Fibrillation, Cancer, Diabetes Mellitus, GERD/Reflux, Hypertension, Thyroid Disorder Additional Past Medical History / Comment(s): Pt states she has had intermittent vaginal bleeding over past one year, NIDDM type II, UTIs, hypothyroid, chronic low back pain, occasional bilateral leg pain at night. Ovarian cancer with chemo and radiation. History of Any Multi-Drug Resistant Organisms: None Reported Past Surgical History: Heart Catheterization, Tonsillectomy, Uterine Ablation Additional Past Surgical History / Comment(s): Nasal fracture with surgery, wisdom teeth extractions. Past Anesthesia/Blood Transfusion Reactions: Postoperative Nausea & Vomiting (PONV) Additional Past Anesthesia/Blood Transfusion Reaction / Comm: Pt received blood this hospitalization without reaction. Past Psychological History: Depression Additional Psychological History / Comment(s): Pt resides alone in an apartment. She uses a walker or cane. She drives. Smoking Status: Former smoker Past Alcohol Use History: None Reported Additional Past Alcohol Use History / Comment(s): PT started smoking as a teen and quit in 1994. Past Drug Use History: None Reported - Past Family History Father Family Medical History: Cancer Additional Family Medical History / Comment(s): Father of lung cancer. He was a smoker. Mother Family Medical History: Vascular Disorder Additional Family Medical History / Comment(s): Mother of a cerebral aneurysm at the age of 58 yrs. Medications and Allergies Home Medications Medication Instructions Recorded Confirmed Type Levothyroxine Sodium 200 mcg PO DAILY 10/10/21 05/25/22 History Nitroglycerin Sl Tabs [Nitrostat] 0.4 mg SL Q5M PRN 10/10/21 05/25/22 History Nystatin 100,000Unit/gm Cream 1 applic TOPICAL BID PRN 10/10/21 05/25/22 History [Mycostatin Cream] Acetaminophen Tab [Tylenol] 1,000 mg PO Q6H PRN 05/18/22 05/25/22 History Omeprazole Magnesium [PriLOSEC OTC] 20 mg PO DAILY 05/18/22 05/25/22 History Oxybutynin ER [Ditropan Xl] 10 mg PO DAILY 05/18/22 05/25/22 History carvediloL [Coreg] 25 mg PO BID 05/18/22 05/25/22 History dilTIAZem HCL [Cardizem LA] 180 mg PO DAILY 05/18/22 05/25/22 History metFORMIN HCL ER [Glucophage XR] 500 mg PO TID-W/MEALS 05/18/22 05/25/22 History Acetaminophen/Diphenhydramine 2 tab PO HS #7 tab 05/23/22 05/25/22 Rx [Tylenol PM 500-25mg] Apixaban [Eliquis] 2.5 mg PO BID tab 05/23/22 05/25/22 Rx Atorvastatin [Lipitor] 40 mg PO HS tab 05/23/22 05/25/22 Rx HYDROcodone/APAP 7.5-325MG [[place] 1 tab PO Q6HR PRN 3 Days #12 tab 05/23/22 05/25/22 Rx 7.5-325] INSULIN ASPART (NovoLOG) [NovoLOG 5 unit SQ ACHS 05/25/22 05/25/22 History (formulary)] Allergies Allergy/AdvReac Type Severity Reaction Status Date / Time apixaban [From Eliquis] AdvReac Unsure, Verified 05/25/22 23:05 told by [facility] Rn not to take Physical Exam Vitals: Vital Signs Temp Pulse Resp BP Pulse Ox 05/25/22 15:47 89 18 129/73 95 05/25/22 13:59 97.9 F 92 20 112/70 96 Intake and Output 05/25/22 05/25/22 05/25/22 06:59 14:59 22:59 Other: Weight 141.521 kg GENERAL DESCRIPTION: Middle-aged female lying in bed, no distress. No tachypnea or accessory muscle of respiration use. HEENT: Shows Pallor , no scleral icterus. Oral mucous membrane is dry. No pharyngeal erythema or thrush NECK: Trachea central, no thyromegaly. LUNGS: Unlabored breathing. Decreased breath sounds at the bases No wheeze or crackle. HEART: S1, S2, regular rate and rhythm. No loud murmur ABDOMEN: Soft, no tenderness , Patient with a necrotic wound to the right groin and lower abdominal area with foul-smelling drainage EXTREMITIES: No edema of feet. SKIN: No rash, no masses palpable. NEUROLOGICAL: The patient is awake, alert, oriented x3, mood and affect normal. Results CBC & Chem 7: 05/25/22 14:20 05/26/22 05:02 Labs: Abnormal Lab Results - Last 24 Hours (Table) 05/25/22 05/25/22 Range/Units 14:20 14:20 RBC 3.57 L (3.80-5.40) m/uL Hgb 11.0 L (11.4-16.0) gm/dL Hct 33.6 L (34.0-46.0) % RDW 16.7 H (11.5-15.5) % Neutrophils # 8.5 H (1.3-7.7) k/uL Lymphocytes # 0.3 L (1.0-4.8) k/uL Sodium 130 L (137-145) mmol/L Potassium 5.2 H (3.5-5.1) mmol/L BUN 37 H (7-17) mg/dL Glucose 187 H (74-99) mg/dL Calcium 8.1 L (8.4-10.2) mg/dL Total Protein 5.7 L (6.3-8.2) g/dL Albumin 2.6 L (3.5-5.0) g/dL Assessment and Plan (1) Right groin wound Current Visit: Yes Status: Acute Code(s): S31.109A - UNSP OPN WND ABD WALL, UNSP Q W/O PENET PERIT CAV, INIT SNOMED Code(s): 597779734 (2) Soft tissue radionecrosis Current Visit: No Status: Acute Priority: High Code(s): L59.8 - OTH DISRD OF THE SKIN, SUBCU RELATED TO RADIATION; Y84.2 - RADIOLOG PROC/RADIOTHRPY CAUSE ABN REACT/COMPL, W/O MISADVNT SNOMED Code(s): 11086808 Plan: 1patient with extensive wound to the right groin and lower abdominal pannus with necrotic tissue foul-smelling concerning for underlying deep infection and will need to cover for both gram-positive skin brien as well as gram-negative pathogen. 2patient will need extensive debridement and deep cultures. 3for now continue with the vancomycin and Zosyn however monitor kidney function closely. We will follow on clinical condition and cultures to further adjust medication if needed Thank you for this consultation will follow this patient along with you Time with Patient: Greater than 30
[2022-05-26] MEDS: HYDROcodone/APAP 7.5-325MG 1 EACH TAB PO PRN ×4 (00:54→20:08)
[2022-05-26] MEDS: PIPERACILLIN-TAZOBACTAM 3.375 GM in SODIUM CHLORIDE 0.9% 100 ML IVPB SCH ×3 (00:54→17:51)
[2022-05-26] MEDS: SODIUM CHLORIDE 0.9% 1,000 ML IV SCH (06:02)
[2022-05-26] MEDS: LEVOTHYROXINE 100 MCG TAB PO SCH (06:02)
[2022-05-26 07:51] LABS: Glucose,Whole Blood 178 mg/dL (70-110)
[2022-05-26] MEDS ORDERED: NON FORMULARY DRUG (Omeprazole Magnesium [Prilosec Otc] 20 MG Tablet) PO SCH (09:00)
[2022-05-26] MEDS: INSULIN ASPART (NovoLOG) 100 UNIT/ML VIAL SQ SCH ×7 (09:07→20:21)
[2022-05-26] MEDS: metFORMIN 500 MG TAB PO SCH ×3 (09:08→17:51)
[2022-05-26] MEDS: DILTIAZEM CD 180 MG CAP.ER.24H PO SCH (09:09)
[2022-05-26] MEDS: PANTOPRAZOLE 40 MG/10 ML VIAL IV SCH (09:09)
[2022-05-26] MEDS: carvediloL 12.5 MG TAB PO SCH ×2 (09:09→17:56)
[2022-05-26] MEDS: OXYBUTYNIN 10 MG TAB.ER.24 PO SCH (09:20)
[2022-05-26] MEDS: VANCOMYCIN 2,000 MG in SODIUM CHLORIDE 0.9% 500 ML 500 ML IVPB SCH (09:20)
[2022-05-26 13:12] LABS: Glucose,Whole Blood 186 mg/dL (70-110)
--- NOTE | 2022-05-26 14:14 | P.PN ---
Progress Note - Text Progress Note Date: 05/26/22 Chief Complaint: wounds This is a pleasant 61-year-old patient, follows with Dr. Smooth Bob. Chronic stable medical conditions include diabetes, GERD, essential hypertension, hypothyroid. Chronic low back pain. Ovarian cancer treatment for chemo and radiation treatment. Patient at baseline uses a walker and a cane. Was recently in the hospital from May 19 through May 24. Patient presented to ER with some right foot numbness. Patient was dysarthric. Stroke found in the left coronary radiata on the posterior aspect of left frontal lobe. Patient was seen by speech. Was starting a diet. Patient in September 2021 was having significant vaginal bleeding. 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 No metastatic disease. She was not felt to be surgical candidate and was to receive 3 cycles of carboplatin/Taxol followed by radiation and 3 additional cycles of the above. She completed radiation on 03/14/2022. Started back on the carbotaxol April 03 and was status post cycle 6 day 1 on May 16. Patient during this admission was started on eliquis with the decision if the patient was to bleed then eliquis be discontinued. Yesterday the patient was noted to have more perianal wounds. Was being followed by wound care. Was evaluated by Taye towards was stable and could be followed up outpatient with Dr. stout who the patient knows from before. Patient was sent in from the [facility] today for worsening of the wounds. Area of eschar was present. Some drainage. odor to it. No fever and chills. Appetite fair. May 26: Patient is IV Zosyn and vancomycin. Consultation to ID and surgery. Significant order. Oral intake fair. Discussed with patient. Will need possible debridement. Active Medications Acetaminophen (Acetaminophen Tab 325 Mg Tab) 650 mg PO Q6HR PRN PRN Reason: Mild Pain or Fever > 100.5 Hydrocodone Bitart/Acetaminophen (Hydrocodone/Apap 7.5-325mg 1 Each Tab) 1 each PO Q6HR PRN PRN Reason: Pain Last Admin: 05/26/22 06:04 Dose: 1 each Atorvastatin Calcium (Atorvastatin 40 Mg Tab) 40 mg PO HS FANNY Last Admin: 05/25/22 20:30 Dose: 40 mg Calcium Carbonate/Glycine (Calcium Carbonate 500 Mg Chewable) 1,000 mg PO Q4HR PRN PRN Reason: Dyspepsia Carvedilol (Carvedilol 12.5 Mg Tab) 25 mg PO BID-W/MEALS [facility] Last Admin: 05/26/22 09:09 Dose: Not Given Diltiazem HCl (Diltiazem Cd 180 Mg Cap.Er.24h) 180 mg PO DAILY [facility] Last Admin: 05/26/22 09:09 Dose: Not Given Sodium Chloride (Saline 0.9%) 1,000 mls @ 50 mls/hr IV .Q20H [facility] Last Admin: 05/26/22 06:02 Dose: 50 mls/hr Piperacillin Sod/Tazobactam (Sod 3.375 gm/ Sodium Chloride) 100 mls @ 25 mls/hr IVPB Q8HR [facility]; Protocol Last Admin: 05/26/22 07:54 Dose: 25 mls/hr Vancomycin HCl 2,000 mg/ (Sodium Chloride) 500 mls @ 167 mls/hr IVPB Q16H [facility] Last Admin: 05/26/22 09:20 Dose: 167 mls/hr Insulin Aspart (Insulin Aspart (Novolog) 100 Unit/Ml Vial) 5 unit SQ ACHS [facility] Last Admin: 05/26/22 13:19 Dose: 5 unit Insulin Aspart (Insulin Aspart (Novolog) 100 Unit/Ml Vial) 0 unit SQ AC-TID [facility]; Protocol Last Admin: 05/26/22 13:19 Dose: 3 unit Lactulose (Lactulose 20 Gm/30 Ml Cup) 20 gm PO DAILY PRN PRN Reason: Constipation Levothyroxine Sodium (Levothyroxine 100 Mcg Tab) 200 mcg PO DAILY@0630 [facility] Last Admin: 05/26/22 06:02 Dose: 200 mcg Lorazepam (Lorazepam 0.5 Mg Tab) 0.5 mg PO Q6HR PRN PRN Reason: Anxiety Metformin HCl (Metformin 500 Mg Tab) 500 mg PO TID-W/MEALS [facility] Last Admin: 05/26/22 13:21 Dose: 500 mg Morphine Sulfate (Morphine Sulfate 2 Mg/Ml Syringe) 1 mg IVP Q6HR PRN PRN Reason: Pain/Discomfort Naloxone HCl (Naloxone 0.4 Mg/Ml 1 Ml Vial) 0.2 mg IV Q2M PRN PRN Reason: Opioid Reversal Nitroglycerin (Nitroglycerin Sl Tabs 0.4 Mg Tab) 0.4 mg SUBLINGUAL Q5M PRN PRN Reason: Chest Pain Ondansetron HCl (Ondansetron 4 Mg/2 Ml Vial) 4 mg IVP Q8HR PRN PRN Reason: Nausea And Vomiting Oxybutynin Chloride (Oxybutynin 10 Mg Tab.Er.24) 10 mg PO DAILY [facility] Last Admin: 05/26/22 09:20 Dose: 10 mg Pantoprazole Sodium (Pantoprazole 40 Mg/10 Ml Vial) 40 mg IV DAILY [facility] Last Admin: 05/26/22 09:09 Dose: 40 mg Temazepam (Temazepam 15 Mg Cap) 15 mg PO HS PRN PRN Reason: Insomnia Past medical history to include: Atrial fibrillation, diabetes, GERD, hypertension, hypothyroid, ovarian cancer with chemo and radiation treatment. Depression. Social history: Was discharged to rehab yesterday. Does use a walker and cane. Patient started smoking as a teenager and stopped in 1994. No alcohol. Family history: Father of lung cancer Physical examination: VITAL SIGNS: 98, 72, 18, 135/64, 97% room air GENERAL: laying in bed awake. Tired EYES: Pupils equal. Conjunctiva normal. HEENT: External appearance of nose and ears normal, oral cavity grossly normal. NECK: JVD unable to assess; masses not palpable. HEART: First and second heart sounds are normal; no edema. LUNGS: Respiratory rate normal; distant breath sound. ABDOMEN: Soft, nontender, liver spleen not palpable, no masses palpable. Perianal wounds C wound care notes. PSYCH: Alert and oriented x3; mood and affect a bit low MUSCULOSKELETAL:No Clubbing/cyanosis;muscles-grossly intact, evidence of OA DERMATOLOGICAL:/ wounds. Strong order. More detailed in nursing notes NEUROLOGICAL: Slurred speech . Power and sensation grossly intact. Mouth slightly pulled to the left INVESTIGATIONS, reviewed in the clinical context: White count 9.4 hemoglobin 11 platelets 356 potassium 5.2 creatinine 0.9 EKG tracing personally reviewed by me-atrial fibrillation. Rate 87 From recent admission: MRI brain without contrast: Acute/subacute CVA of the left coronary radiata on the posterior aspect of the left frontal lobe. Nonspecific white matter changes. CT brain: Mild atrophic CT angiography of the brain: Nonspecific 2-D echocardiogram: EF 55-60%, severe LVH Assessment and plan: --Multiple superficial wounds in the area of the groin and perineal area. I ncluding drainage and anaerobic odor. Area of dark eschar: Slow to respond ID and surgery consulted -Acute stroke in the left [place] radiata on the posterior aspect of the left frontal lobe. suspected to be embolic from underlying paroxysmal atrial fibrillation, on 05/18/2022 Eliquis. No aspirin. -Paroxysmal atrial fibrillation: Currently sinus rhythm eliquis. -Acute dysphagia from underlying stroke : Chopped diet -Morbid obesity BMI 48.9 Weight loss measures -GERD Prilosec 20 mg -Hypertensive heart disease Coreg 25 mg twice a day. Cardizem CD 180 mg a day. -Essential hypertension Coreg 25 mg twice a day, Cardizem LA 180 mg a day -Chronic urinary stress incontinence Ditropan XL 10 mg a day -Hypothyroid Synthroid 200 g a day -Chronic gait dysfunction Uses a cane/walker at baseline Continue IV antibiotics. Await input from ID and surgery. Will need debridement. Other medications to continue. Discussed with patient..
--- NOTE | 2022-05-26 15:24 | P.GSCN ---
History of Present Illness Consult date: 05/26/22 History of present illness: REASON FOR CONSULTATION: Right groin infection HISTORY OF PRESENT ILLNESS: The patient is a 61 year old female with complicated history of recent diagnosis of uterine cancer treated with radiation therapy. She reports developing a wound from December now 5 months ago which is now progressed. She was hospitalized 1 week ago for acute stroke. She was readmitted less than 24 hours after discharge. Patient is being seen by infectious disease due to chronic wound. Further discussion with infectious disease provider performed regarding her wound. Patient's wound was being managed in the wound care center. General surgery is consulted for management of chronic right thigh wound. PAST MEDICAL HISTORY: See list and reviewed PAST SURGICAL HISTORY: See list and reviewed MEDICATIONS: See list and reviewed ALLERGIES: See list and reviewed SOCIAL HISTORY: See list and reviewed FAMILY HISTORY: See list and reviewed REVIEW OF ORGAN SYSTEMS: CONSTITUTIONAL: No fevers or chills. No recent weight loss. Has morbid obesity, BMI 48.9 EYES: Denies any trouble with vision. Wears glasses. HEENT: No difficulties with hearing. No nosebleeds. No difficulty swallowing. RESPIRATORY: Denies pneumonia. Denies any troubles with breathing or dyspnea on exertion. CARDIOVASCULAR: Has hypertensive heart disease. Has hyperlipidemia. Prior cardiac ablation. History of atrial fibrillation. GASTROINTESTINAL: Denies fatty food intolerance. Denies change in bowel habits and gas bloat. Has gastroesophageal reflux disease. Has post-op nausea and vomiting. GENITOURINARY: Denies any blood in urine. Has increased urinary frequency. Recent uterine ovarian cancer diagnosis. NEUROLOGICAL: Denies any numbness or tingling along the distal extremities. No seizure disorders or headaches. Has recent stroke 1 week ago. MUSCULOSKELETAL: Has back pain, stiffness or joint arthritis. SKIN: No current skin cancer. No rash. PSYCHIATRIC: Has depression. No suicidal thoughts. ENDOCRINE: Has hypothyroidism. Has diabetes type II, insulin dependent. HEME/LYMPHATIC: Denies any lumps and bumps around the neck. No recent deep venous thrombosis. On anticoagulant. ALLERGY/IMMUNOLOGY: No immunoglobulin therapy. No immune deficiencies. Recent radiation. BREAST: Denies current breast lumps, pain or nipple discharge. PHYSICAL EXAM: VITALS: Reviewed CONSTITUTIONAL: Well developed and in no acute distress. EYES: Conjuctivae without sclera icterus. Extraocular movements grossly intact. HEAD, EARS, NOSE, THROAT: Moist buccal mucosa. Head is atraumatic, normocephalic. Hears conversational speech. No nasal drainage. NECK: Supple. No JV distention. No thyroidomegaly. RESPIRATORY: Non-labored respirations and equal bilateral excursions. No gross wheezes. CARDIOVASCULAR: Palpable 2+ radial pulses. ABDOMEN: She has moderate to severe panniculitis. Pannus over 40 pounds. Right groin wound 20 cm x 10 cm with foul smelling necrosis and insensate. LYMPH: No neck lymphadenopathy. MUSCULOSKELETAL: Nail and fingers with good capillary refill. SKIN: Warm and well perfused with good skin turgor. NEUROLOGIC: Cranial nerves II through XII grossly intact. No focal or lateralizing signs. PSYCH: Appropriate affect. Alert and oriented to person, place and time. Displays appropriate insight. CLINCAL LABS: Reviewed. WBC 9.4 on admission. Hgb up 10.0 to 11.0 IMAGING: Independently reviewed. CT of the abdomen and pelvis independently reviewed from 1 week ago without acute intra-abdominal findings. This is my independent interpretation. RADIOLOGY: Report reviewed of CT of the abdomen and pelvis with fatty liver. Brain MRI with subacute left CVA. ECHO: Ejection fraction 55% with left ventricular hypertrophy. RECORDS: previous old records reviewed ASSESSMENT: 1. Right groin necrotic wound 2. Panniculitis 3. Morbid obesity PLAN: 1. Recommend increased nutrition for optimal wound healing. 2. Will need debridement and wound VAC due to large surface area 15 cm x 4 cm wound of the right thigh 3. Continue antibiotics Thank you for this kind consultation. Past Medical History Past Medical History: Atrial Fibrillation, Cancer, Diabetes Mellitus, GERD/Refl ux, Hypertension, Thyroid Disorder Additional Past Medical History / Comment(s): Pt states she has had intermittent vaginal bleeding over past one year, NIDDM type II, UTIs, hypothyroid, chronic low back pain, occasional bilateral leg pain at night. Ovarian cancer with chemo and radiation. History of Any Multi-Drug Resistant Organisms: None Reported Past Surgical History: Heart Catheterization, Tonsillectomy, Uterine Ablation Additional Past Surgical History / Comment(s): Nasal fracture with surgery, wisdom teeth extractions. Past Anesthesia/Blood Transfusion Reactions: Postoperative Nausea & Vomiting (PONV) Additional Past Anesthesia/Blood Transfusion Reaction / Comm: Pt received blood this hospitalization without reaction. Past Psychological History: Depression Additional Psychological History / Comment(s): Pt resides alone in an apartment. She uses a walker or cane. She drives. Smoking Status: Former smoker Past Alcohol Use History: None Reported Additional Past Alcohol Use History / Comment(s): PT started smoking as a teen and quit in 1994. Past Drug Use History: None Reported - Past Family History Father Family Medical History: Cancer Additional Family Medical History / Comment(s): Father of lung cancer. He was a smoker. Mother Family Medical History: Vascular Disorder Additional Family Medical History / Comment(s): Mother of a cerebral aneurysm at the age of 58 yrs. Medications and Allergies Home Medications Medication Instructions Recorded Confirmed Type Levothyroxine Sodium 200 mcg PO DAILY 10/10/21 05/25/22 History Nitroglycerin Sl Tabs [Nitrostat] 0.4 mg SL Q5M PRN 10/10/21 05/25/22 History Nystatin 100,000Unit/gm Cream 1 applic TOPICAL BID PRN 10/10/21 05/25/22 History [Mycostatin Cream] Acetaminophen Tab [Tylenol] 1,000 mg PO Q6H PRN 05/18/22 05/25/22 History Omeprazole Magnesium [PriLOSEC OTC] 20 mg PO DAILY 05/18/22 05/25/22 History Oxybutynin ER [Ditropan Xl] 10 mg PO DAILY 05/18/22 05/25/22 History carvediloL [Coreg] 25 mg PO BID 05/18/22 05/25/22 History dilTIAZem HCL [Cardizem LA] 180 mg PO DAILY 05/18/22 05/25/22 History metFORMIN HCL ER [Glucophage XR] 500 mg PO TID-W/MEALS 05/18/22 05/25/22 History Acetaminophen/Diphenhydramine 2 tab PO HS #7 tab 05/23/22 05/25/22 Rx [Tylenol PM 500-25mg] Apixaban [Eliquis] 2.5 mg PO BID tab 05/23/22 05/25/22 Rx Atorvastatin [Lipitor] 40 mg PO HS tab 05/23/22 05/25/22 Rx HYDROcodone/APAP 7.5-325MG [[place] 1 tab PO Q6HR PRN 3 Days #12 tab 05/23/22 05/25/22 Rx 7.5-325] INSULIN ASPART (NovoLOG) [NovoLOG 5 unit SQ ACHS 05/25/22 05/25/22 History (formulary)] Allergies Allergy/AdvReac Type Severity Reaction Status Date / Time apixaban [From Eliquis] AdvReac Unsure, Verified 05/25/22 23:05 told by Dub Room Engineer not to take Surgical - Exam Vital Signs Temp Pulse Resp BP Pulse Ox 97.9 F 92 20 112/70 96 05/25/22 13:59 05/25/22 13:59 05/25/22 13:59 05/25/22 13:59 05/25/22 13:59 Results - Labs 05/25/22 14:20 05/26/22 05:02 Abnormal Lab Results - Last 24 Hours (Table) 05/25/22 05/25/22 05/25/22 Range/Units 14:20 18:06 20:40 Sodium 130 L (137-145) mmol/L Potassium 5.2 H (3.5-5.1) mmol/L BUN 37 H (7-17) mg/dL Glucose 187 H (74-99) mg/dL POC Glucose (mg/dL) 181 H 194 H (70-110) mg/dL Hemoglobin A1c (0.0-6.0) % Calcium 8.1 L (8.4-10.2) mg/dL Total Protein 5.7 L (6.3-8.2) g/dL Albumin 2.6 L (3.5-5.0) g/dL 05/26/22 05/26/22 05/26/22 Range/Units 05:02 07:50 13:01 Sodium (137-145) mmol/L Potassium (3.5-5.1) mmol/L BUN (7-17) mg/dL Glucose (74-99) mg/dL POC Glucose (mg/dL) 178 H 186 H (70-110) mg/dL Hemoglobin A1c 7.4 H (0.0-6.0) % Calcium (8.4-10.2) mg/dL Total Protein (6.3-8.2) g/dL Albumin (3.5-5.0) g/dL Microbiology - Last 24 Hours (Table) 05/25/22 14:20 Gram Stain - Preliminary Groin Wound Culture - Preliminary Gram Neg Bacilli Diabetes panel 05/25/22 05/26/22 05/26/22 Range/Units 14:20 05:02 05:02 Sodium 130 L (137-145) mmol/L Potassium 5.2 H (3.5-5.1) mmol/L Chloride 101 (98-107) mmol/L Carbon Dioxide 22 (22-30) mmol/L BUN 37 H (7-17) mg/dL Creatinine 0.90 0.97 (0.52-1.04) mg/dL Glucose 187 H (74-99) mg/dL Hemoglobin A1c 7.4 H (0.0-6.0) % Calcium 8.1 L (8.4-10.2) mg/dL AST 30 (14-36) U/L ALT 13 (4-34) U/L Alkaline Phosphatase 89 (38-126) U/L Total Protein 5.7 L (6.3-8.2) g/dL Albumin 2.6 L (3.5-5.0) g/dL Calcium panel 05/25/22 Range/Units 14:20 Calcium 8.1 L (8.4-10.2) mg/dL Albumin 2.6 L (3.5-5.0) g/dL Pituitary panel 05/25/22 05/26/22 Range/Units 14:20 05:02 Sodium 130 L (137-145) mmol/L Potassium 5.2 H (3.5-5.1) mmol/L Chloride 101 (98-107) mmol/L Carbon Dioxide 22 (22-30) mmol/L BUN 37 H (7-17) mg/dL Creatinine 0.90 0.97 (0.52-1.04) mg/dL Glucose 187 H (74-99) mg/dL Calcium 8.1 L (8.4-10.2) mg/dL Adrenal panel 05/25/22 05/26/22 Range/Units 14:20 05:02 Sodium 130 L (137-145) mmol/L Potassium 5.2 H (3.5-5.1) mmol/L Chloride 101 (98-107) mmol/L Carbon Dioxide 22 (22-30) mmol/L BUN 37 H (7-17) mg/dL Creatinine 0.90 0.97 (0.52-1.04) mg/dL Glucose 187 H (74-99) mg/dL Calcium 8.1 L (8.4-10.2) mg/dL Total Bilirubin 0.7 (0.2-1.3) mg/dL AST 30 (14-36) U/L ALT 13 (4-34) U/L Alkaline Phosphatase 89 (38-126) U/L Total Protein 5.7 L (6.3-8.2) g/dL Albumin 2.6 L (3.5-5.0) g/dL
[2022-05-26 17:18] LABS: Glucose,Whole Blood 160 mg/dL (70-110)
[2022-05-26] MEDS: MULTIVITAMINS, THERA 1 EACH TAB PO SCH (17:52)
[2022-05-26] MEDS: ATORVASTATIN 40 MG TAB PO SCH (20:21)
[2022-05-26 20:23] LABS: Glucose,Whole Blood 164 mg/dL (70-110)
[2022-05-27] MEDS: PIPERACILLIN-TAZOBACTAM 3.375 GM in SODIUM CHLORIDE 0.9% 100 ML IVPB SCH (00:14)
[2022-05-27] MEDS: VANCOMYCIN 2,000 MG in SODIUM CHLORIDE 0.9% 500 ML 500 ML IVPB SCH ×2 (00:14→18:02)
[2022-05-27] MEDS: SODIUM CHLORIDE 0.9% 1,000 ML IV SCH ×3 (00:15→23:49)
--- NOTE | 2022-05-27 00:35 | P.PN ---
Subjective Progress Note Date: 05/26/22 Principal diagnosis: Right groin and abdominal pannus wound infection Patient is a 61-year-old female morbidly obese with multiple comorbidities in this patient who did have ovarian cancer s/p radiation chemotherapy with necrotic wound to the right groin and the abdominal panus. On today's evaluation that is 05/26/2022, the patient is afebrile, the patient is currently breathing comfortably patient denies having any worsening pain to the right groin or lower abdominal wound area, patient denies having any chest pain or shortness of breath or cough and no diarrhea Objective - Vital Signs Vital signs: Vital Signs Temp 97.9 F 05/26/22 05:20 Pulse 74 05/26/22 08:00 Resp 16 05/26/22 05:20 BP 94/60 05/26/22 08:00 Pulse Ox 95 05/26/22 05:20 FiO2 Intake & Output 05/25/22 05/26/22 05/26/22 18:59 06:59 18:59 Intake Total 125 Balance 125 Weight 141.521 kg 141.521 kg Intake: Oral 125 Other: Voiding Method Diaper Diaper Incontinent Incontinent # Voids 1 3 - Exam GENERAL DESCRIPTION: Middle-aged female lying in bed in no distress RESPIRATORY SYSTEM: Unlabored breathing , decreased breath sounds at bases HEART: S1 S2 regular rate and rhythm , ABDOMEN: Soft , right groin with a necrotic wound surrounding redness and foul- smelling drainage EXTREMITIES: Diffuse swelling of both legs - Labs CBC & Chem 7: 05/25/22 14:20 05/26/22 05:02 Labs: Abnormal Lab Results - Last 24 Hours (Table) 05/25/22 05/25/22 05/25/22 Range/Units 14:20 14:20 18:06 RBC 3.57 L (3.80-5.40) m/uL Hgb 11.0 L (11.4-16.0) gm/dL Hct 33.6 L (34.0-46.0) % RDW 16.7 H (11.5-15.5) % Neutrophils # 8.5 H (1.3-7.7) k/uL Lymphocytes # 0.3 L (1.0-4.8) k/uL Sodium 130 L (137-145) mmol/L Potassium 5.2 H (3.5-5.1) mmol/L BUN 37 H (7-17) mg/dL Glucose 187 H (74-99) mg/dL POC Glucose (mg/dL) 181 H (70-110) mg/dL Hemoglobin A1c (0.0-6.0) % Calcium 8.1 L (8.4-10.2) mg/dL Total Protein 5.7 L (6.3-8.2) g/dL Albumin 2.6 L (3.5-5.0) g/dL 05/25/22 05/26/22 05/26/22 Range/Units 20:40 05:02 07:50 RBC (3.80-5.40) m/uL Hgb (11.4-16.0) gm/dL Hct (34.0-46.0) % RDW (11.5-15.5) % Neutrophils # (1.3-7.7) k/uL Lymphocytes # (1.0-4.8) k/uL Sodium (137-145) mmol/L Potassium (3.5-5.1) mmol/L BUN (7-17) mg/dL Glucose (74-99) mg/dL POC Glucose (mg/dL) 194 H 178 H (70-110) mg/dL Hemoglobin A1c 7.4 H (0.0-6.0) % Calcium (8.4-10.2) mg/dL Total Protein (6.3-8.2) g/dL Albumin (3.5-5.0) g/dL Microbiology - Last 24 Hours (Table) 05/25/22 14:20 Gram Stain - Preliminary Groin Wound Culture - Preliminary Assessment and Plan (1) Right groin wound Current Visit: Yes Status: Acute Code(s): S31.109A - UNSP OPN WND ABD WALL, UNSP Q W/O PENET PERIT CAV, INIT SNOMED Code(s): 934595130 (2) Soft tissue radionecrosis Current Visit: No Status: Acute Priority: High Code(s): L59.8 - OTH DISRD OF THE SKIN, SUBCU RELATED TO RADIATION; Y84.2 - RADIOLOG PROC/RADIOTHRPY CAUSE ABN REACT/COMPL, W/O MISADVNT SNOMED Code(s): 41000241 Plan: 1patient with extensive wound to the right groin and lower abdominal pannus with necrotic tissue foul-smelling concerning for underlying deep infection and will need to cover for both gram-positive skin brien as well as gram-negative pathogen. 2patient will need extensive debridement and deep cultures this was discussed with the surgeon on the floor. 3patient to continue with the vancomycin however switch Zosyn to Unasyn to decrease risk of nephrotoxicity Time with Patient: Less than 30
[2022-05-27] MEDS: HYDROcodone/APAP 7.5-325MG 1 EACH TAB PO PRN ×3 (01:15→22:02)
[2022-05-27] MEDS: AMPICILLIN-SULBACTAM 3 GM in SODIUM CHLORIDE 0.9% 100 ML IVPB SCH ×4 (01:16→17:26)
[2022-05-27] MEDS: LEVOTHYROXINE 100 MCG TAB PO SCH (05:16)
[2022-05-27 07:16] LABS: Glucose,Whole Blood 160 mg/dL (70-110)
[2022-05-27] MEDS: INSULIN ASPART (NovoLOG) 100 UNIT/ML VIAL SQ SCH ×7 (08:24→22:03)
[2022-05-27] MEDS: carvediloL 12.5 MG TAB PO SCH ×2 (08:25→17:27)
[2022-05-27] MEDS: OXYBUTYNIN 10 MG TAB.ER.24 PO SCH (08:25)
[2022-05-27] MEDS: DILTIAZEM CD 180 MG CAP.ER.24H PO SCH (08:25)
[2022-05-27] MEDS: PANTOPRAZOLE 40 MG/10 ML VIAL IV SCH (08:25)
[2022-05-27] MEDS: metFORMIN 500 MG TAB PO SCH ×3 (08:25→17:27)
[2022-05-27] MEDS: MULTIVITAMINS, THERA 1 EACH TAB PO SCH (08:25)
[2022-05-27 10:35] LABS: Anisocytosis Slight; HCT 34.4 % (34.0-46.0); HGB 10.5 gm/dL (11.4-16.0); Hypochromasia Marked; MCHC 30.7 g/dL (31.0-37.0); MCV 97.9 fL (80.0-100.0); Macrocytosis Slight; Mean Platelet Volume 8.4; Platelet Count 365 k/uL (150-450); RBC 3.51 m/uL (3.80-5.40); RDW 16.4 % (11.5-15.5); WBC 10.7 k/uL (3.8-10.6)
[2022-05-27 10:46] LABS: INR 1.1 (<1.2)
[2022-05-27 11:05] LABS: ALT 13 U/L (4-34); AST 29 U/L (14-36); African American GFR (CKD) 77 (>60 ml/min/1.73 sqM); Albumin 2.4 g/dL (3.5-5.0); Albumin/Globulin Ratio 0.8; Alkaline Phosphatase 91 U/L (38-126); Anion Gap 7 mmol/L; Blood Urea Nitrogen 27 mg/dL (7-17); Calcium 7.9 mg/dL (8.4-10.2); Carbon Dioxide 19 mmol/L (22-30); Chloride 106 mmol/L (98-107); Globulin 2.9 g/dL; Glucose 166 mg/dL (74-99); Non-African American GFR(CKD) 67 (>60 ml/min/1.73 sqM); Potassium 4.7 mmol/L (3.5-5.1); Sodium 132 mmol/L (137-145); Total Bilirubin 0.5 mg/dL (0.2-1.3); Total Protein 5.3 g/dL (6.3-8.2)
--- NOTE | 2022-05-27 11:24 | P.PN ---
Progress Note - Text Progress Note Date: 05/27/22 Chief Complaint: wounds This is a pleasant 61-year-old patient, follows with Dr. Smooth Bob. Chronic stable medical conditions include diabetes, GERD, essential hypertension, hypothyroid. Chronic low back pain. Ovarian cancer treatment for chemo and radiation treatment. Patient at baseline uses a walker and a cane. Was recently in the hospital from May 19 through May 24. Patient presented to ER with some right foot numbness. Patient was dysarthric. Stroke found in the left coronary radiata on the posterior aspect of left frontal lobe. Patient was seen by speech. Was starting a diet. Patient in September 2021 was having significant vaginal bleeding. 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 No metastatic disease. She was not felt to be surgical candidate and was to receive 3 cycles of carboplatin/Taxol followed by radiation and 3 additional cycles of the above. She completed radiation on 03/14/2022. Started back on the carbotaxol April 03 and was status post cycle 6 day 1 on May 16. Patient during this admission was started on eliquis with the decision if the patient was to bleed then eliquis be discontinued. Yesterday the patient was noted to have more perianal wounds. Was being followed by wound care. Was evaluated by Taye towards was stable and could be followed up outpatient with Dr. stout who the patient knows from before. Patient was sent in from the ECF today for worsening of the wounds. Area of eschar was present. Some drainage. odor to it. No fever and chills. Appetite fair. May 26: Patient is IV Zosyn and vancomycin. Consultation to ID and surgery. Significant order. Oral intake fair. Discussed with patient. Will need possible debridement. May 27: Seen by surgery. Pending debridement wound VAC, by Dr. Kasper. On antibiotics. Oral intake fair. Active Medications Acetaminophen (Acetaminophen Tab 325 Mg Tab) 650 mg PO Q6HR PRN PRN Reason: Mild Pain or Fever > 100.5 Hydrocodone Bitart/Acetaminophen (Hydrocodone/Apap 7.5-325mg 1 Each Tab) 1 each PO Q6HR PRN PRN Reason: Pain Last Admin: 05/27/22 01:15 Dose: 1 each Atorvastatin Calcium (Atorvastatin 40 Mg Tab) 40 mg PO HS [facility]NY Last Admin: 05/26/22 20:21 Dose: 40 mg Calcium Carbonate/Glycine (Calcium Carbonate 500 Mg Chewable) 1,000 mg PO Q4HR PRN PRN Reason: Dyspepsia Carvedilol (Carvedilol 12.5 Mg Tab) 25 mg PO BID-W/MEALS [facility] Last Admin: 05/27/22 08:25 Dose: 25 mg Diltiazem HCl (Diltiazem Cd 180 Mg Cap.Er.24h) 180 mg PO DAILY [facility] Last Admin: 05/27/22 08:25 Dose: 180 mg Sodium Chloride (Saline 0.9%) 1,000 mls @ 50 mls/hr IV .Q20H [facility] Last Admin: 05/27/22 00:15 Dose: 50 mls/hr Vancomycin HCl 2,000 mg/ (Sodium Chloride) 500 mls @ 167 mls/hr IVPB Q16H [facility] Last Admin: 05/27/22 00:14 Dose: 167 mls/hr Ampicillin Sodium/Sulbactam (Sodium 3 gm/ Sodium Chloride) 100 mls @ 200 mls/hr IVPB Q6HR [facility]; Protocol Last Admin: 05/27/22 05:17 Dose: 200 mls/hr Insulin Aspart (Insulin Aspart (Novolog) 100 Unit/Ml Vial) 5 unit SQ ACHS [facility] Last Admin: 05/27/22 08:24 Dose: 5 unit Insulin Aspart (Insulin Aspart (Novolog) 100 Unit/Ml Vial) 0 unit SQ AC-TID [facility]; Protocol Last Admin: 05/27/22 08:25 Dose: 1 unit Lactulose (Lactulose 20 Gm/30 Ml Cup) 20 gm PO DAILY PRN PRN Reason: Constipation Levothyroxine Sodium (Levothyroxine 100 Mcg Tab) 200 mcg PO DAILY@0630 [facility] Last Admin: 05/27/22 05:16 Dose: 200 mcg Lorazepam (Lorazepam 0.5 Mg Tab) 0.5 mg PO Q6HR PRN PRN Reason: Anxiety Metformin HCl (Metformin 500 Mg Tab) 500 mg PO TID-W/MEALS [facility] Last Admin: 05/27/22 08:25 Dose: 500 mg Morphine Sulfate (Morphine Sulfate 2 Mg/Ml Syringe) 1 mg IVP Q6HR PRN PRN Reason: Pain/Discomfort Multivitamins (Multivitamins, Thera 1 Each Tab) 1 each PO DAILY [facility] Last Admin: 05/27/22 08:25 Dose: 1 each Naloxone HCl (Naloxone 0.4 Mg/Ml 1 Ml Vial) 0.2 mg IV Q2M PRN PRN Reason: Opioid Reversal Nitroglycerin (Nitroglycerin Sl Tabs 0.4 Mg Tab) 0.4 mg SUBLINGUAL Q5M PRN PRN Reason: Chest Pain Ondansetron HCl (Ondansetron 4 Mg/2 Ml Vial) 4 mg IVP Q8HR PRN PRN Reason: Nausea And Vomiting Oxybutynin Chloride (Oxybutynin 10 Mg Tab.Er.24) 10 mg PO DAILY [facility] Last Admin: 05/27/22 08:25 Dose: 10 mg Pantoprazole Sodium (Pantoprazole 40 Mg/10 Ml Vial) 40 mg IV DAILY [facility] Last Admin: 05/27/22 08:25 Dose: 40 mg Temazepam (Temazepam 15 Mg Cap) 15 mg PO HS PRN PRN Reason: Insomnia Past medical history to include: Atrial fibrillation, diabetes, GERD, hypertension, hypothyroid, ovarian cancer with chemo and radiation treatment. Depression. Social history: Was discharged to rehab yesterday. Does use a walker and cane. Patient started smoking as a teenager and stopped in 1994. No alcohol. Family history: Father of lung cancer Physical examination: VITAL SIGNS: 98.4, 68, 16, 112/69, 95% room air GENERAL: laying in bed awake. Tired EYES: Pupils equal. Conjunctiva normal. HEENT: External appearance of nose and ears normal, oral cavity grossly normal. NECK: JVD unable to assess; masses not palpable. HEART: First and second heart sounds are normal; no edema. LUNGS: Respiratory rate normal; distant breath sound. ABDOMEN: Soft, nontender, liver spleen not palpable, no masses palpable. Perianal wounds C wound care notes. PSYCH: Alert and oriented x3; mood and affect a bit low MUSCULOSKELETAL:No Clubbing/cyanosis;muscles-grossly intact, evidence of OA DERMATOLOGICAL:/ wounds. Strong order. More detailed in nursing notes NEUROLOGICAL: Slurred speech . Power and sensation grossly intact. Mouth slightly pulled to the left INVESTIGATIONS, reviewed in the clinical context: May 27: White count 10.7 hemoglobin 10.5 potassium 4.7 creatinine 0.9 to White count 9.4 hemoglobin 11 platelets 356 potassium 5.2 creatinine 0.9 EKG tracing personally reviewed by me-atrial fibrillation. Rate 87 From recent admission: MRI brain without contrast: Acute/subacute CVA of the left coronary radiata on the posterior aspect of the left frontal lobe. Nonspecific white matter changes. CT brain: Mild atrophic CT angiography of the brain: Nonspecific 2-D echocardiogram: EF 55-60%, severe LVH Assessment and plan: --Multiple superficial wounds in the area of the groin and perineal area. Including drainage and anaerobic odor. Large necrotic wound.: Slow to respond Pending debridement and wound VAC by Dr. Kasper. IV Unasyn and vancomycin. -Acute stroke in the left johnston radiata on the posterior aspect of the left frontal lobe. suspected to be embolic from underlying paroxysmal atrial fibrillation, on 05/18/2022 Eliquis. No aspirin. -Paroxysmal atrial fibrillation: Currently sinus rhythm eliquis. -Acute dysphagia from underlying stroke : Chopped diet -Morbid obesity BMI 48.9 Weight loss measures -GERD Prilosec 20 mg -Hypertensive heart disease Coreg 25 mg twice a day. Cardizem CD 180 mg a day. -Essential hypertension Coreg 25 mg twice a day, Cardizem LA 180 mg a day -Chronic urinary stress incontinence Ditropan XL 10 mg a day -Hypothyroid Synthroid 200 g a day -Chronic gait dysfunction Uses a cane/walker at baseline IV Unasyn and IV vancomycin.. Pending debridement and wound VAC with Dr. Kasper. Medications to continue. Discussed.
[2022-05-27 11:49] LABS: Glucose,Whole Blood 166 mg/dL (70-110)
--- NOTE | 2022-05-27 13:39 | P.PN ---
Subjective Progress Note Date: 05/27/22 CHIEF COMPLAINT: Right groin infection HISTORY OF PRESENT ILLNESS: The patient is a 61 year old female with complicated right groin wound. No reports of pain. She is barely eating. Discussed with patient need for improved nutrition. She confirms minimal appetite. Patient encouraged to increase protein and diet. REVIEW OF ORGAN SYSTEMS: No fevers or chills. No chest pain. No nausea or vomiting. PHYSICAL EXAM: VITALS: Reviewed CONSTITUTIONAL: Well developed and in no acute distress. EYES: Conjuctivae without sclera icterus. Extraocular movements grossly intact. HEAD, EARS, NOSE, THROAT: Moist buccal mucosa. Head is atraumatic, normocephalic. Hears conversational speech. No nasal drainage. RESPIRATORY: Non-labored respirations and equal bilateral excursions. No gross wheezes. CARDIOVASCULAR: Palpable 2+ radial pulses. ABDOMEN: Right groin wound 20 cm x 10 cm with skin necrosis. MUSCULOSKELETAL: Nail and fingers with good capillary refill. SKIN: Warm and well perfused with good skin turgor. NEUROLOGIC: Cranial nerves II through XII grossly intact. No focal or lateralizing signs. PSYCH: Appropriate affect. Alert and oriented to person, place and time. Displays appropriate insight. CLINCAL LABS: Reviewed. WBC 9.4 on admission, marlen 10.4, elevated. Hgb 11.0, now 10.5 ASSESSMENT: 1. Right groin necrotic wound 2. Panniculitis 3. Morbid obesity PLAN: 1. Surgical debridement described 2. Also recommend increase protein intake of 75+ grams daily 3. NPO after midnight 4. Protein shakes 3 times daily ordered for 90 g protein daily. 5. We'll proceed with excision and debridement of right groin wound. 6. Wound VAC placement also described. Objective - Vital Signs Vital signs: Vital Signs Temp 98.4 F 05/27/22 05:00 Pulse 68 05/27/22 05:00 Resp 16 05/27/22 05:00 BP 112/69 05/27/22 05:00 Pulse Ox 95 05/27/22 05:00 FiO2 Intake & Output 05/26/22 05/27/22 05/27/22 18:59 06:59 18:59 Intake Total 965 Balance 965 Intake: Intake, IV Titration 600 Amount Vancomycin 2,000 mg In 100 Sodium Chloride 0.9% 500 ml 500 ml @ 167 mls/hr IVPB ONCE ONE Rx#: [id number] Vancomycin 2,000 mg In 500 Sodium Chloride 0.9% 500 ml 500 ml @ 167 mls/hr IVPB Q16H [facility] Rx#: [id number] Oral 365 Other: Voiding Method Diaper Diaper Diaper Incontinent Incontinent Incontinent # Voids 3 # Bowel Movements 1 - Labs CBC & Chem 7: 05/27/22 10:21 05/27/22 10:21 Labs: Abnormal Lab Results - Last 24 Hours (Table) 05/26/22 05/26/22 05/27/22 Range/Units 17:16 20:10 07:15 WBC (3.8-10.6) k/uL RBC (3.80-5.40) m/uL Hgb (11.4-16.0) gm/dL MCHC (31.0-37.0) g/dL RDW (11.5-15.5) % Sodium (137-145) mmol/L Carbon Dioxide (22-30) mmol/L BUN (7-17) mg/dL Glucose (74-99) mg/dL POC Glucose (mg/dL) 160 H 164 H 160 H (70-110) mg/dL Calcium (8.4-10.2) mg/dL Total Protein (6.3-8.2) g/dL Albumin (3.5-5.0) g/dL 05/27/22 05/27/22 05/27/22 Range/Units 10:21 10:21 11:47 WBC 10.7 H (3.8-10.6) k/uL RBC 3.51 L (3.80-5.40) m/uL Hgb 10.5 L (11.4-16.0) gm/dL MCHC 30.7 L (31.0-37.0) g/dL RDW 16.4 H (11.5-15.5) % Sodium 132 L (137-145) mmol/L Carbon Dioxide 19 L (22-30) mmol/L BUN 27 H (7-17) mg/dL Glucose 166 H (74-99) mg/dL POC Glucose (mg/dL) 166 H (70-110) mg/dL Calcium 7.9 L (8.4-10.2) mg/dL Total Protein 5.3 L (6.3-8.2) g/dL Albumin 2.4 L (3.5-5.0) g/dL Microbiology - Last 24 Hours (Table) 05/25/22 14:20 Gram Stain - Final Groin Wound Culture - Final Klebsiella pneumoniae 05/25/22 14:29 Blood Culture - Preliminary Blood No Growth after 24 hours 05/25/22 14:29 Blood Culture - Preliminary Blood No Growth after 24 hours
[2022-05-27 17:20] LABS: Glucose,Whole Blood 158 mg/dL (70-110)
[2022-05-27 21:48] LABS: Glucose,Whole Blood 160 mg/dL (70-110)
[2022-05-27] MEDS: ATORVASTATIN 40 MG TAB PO SCH (22:03)
--- NOTE | 2022-05-27 22:36 | P.PN ---
Subjective Progress Note Date: 05/27/22 Principal diagnosis: Right groin and abdominal pannus wound infection Patient is a 61-year-old female morbidly obese with multiple comorbidities in this patient who did have ovarian cancer s/p radiation chemotherapy with necrotic wound to the right groin and the abdominal panus. On today's evaluation that is 05/27/2022, the patient continues to be afebrile, the patient is breathing comfortably on room air, patient pain to the right groin/ lower abdominal wound area is currently controlled with the pain medication, patient denies having any chest pain or shortness of breath or cough and no diarrhea Objective - Vital Signs Vital signs: Vital Signs Temp 97.9 F 05/27/22 13:00 Pulse 76 05/27/22 13:00 Resp 16 05/27/22 13:00 BP 100/57 05/27/22 13:00 Pulse Ox 97 05/27/22 13:00 FiO2 Intake & Output 05/26/22 05/27/22 05/27/22 18:59 06:59 18:59 Intake Total 965 Balance 965 Intake: Intake, IV Titration 600 Amount Vancomycin 2,000 mg In 100 Sodium Chloride 0.9% 500 ml 500 ml @ 167 mls/hr IVPB ONCE ONE Rx#: [id number] Vancomycin 2,000 mg In 500 Sodium Chloride 0.9% 500 ml 500 ml @ 167 mls/hr IVPB Q16H [facility] Rx#: [id number] Oral 365 Other: Voiding Method Diaper Diaper Diaper Incontinent Incontinent Incontinent # Voids 3 # Bowel Movements 1 - Labs CBC & Chem 7: 05/27/22 10:21 05/27/22 10:21 Labs: Abnormal Lab Results - Last 24 Hours (Table) 05/26/22 05/26/22 05/27/22 Range/Units 17:16 20:10 07:15 WBC (3.8-10.6) k/uL RBC (3.80-5.40) m/uL Hgb (11.4-16.0) gm/dL MCHC (31.0-37.0) g/dL RDW (11.5-15.5) % Sodium (137-145) mmol/L Carbon Dioxide (22-30) mmol/L BUN (7-17) mg/dL Glucose (74-99) mg/dL POC Glucose (mg/dL) 160 H 164 H 160 H (70-110) mg/dL Calcium (8.4-10.2) mg/dL Total Protein (6.3-8.2) g/dL Albumin (3.5-5.0) g/dL 05/27/22 05/27/22 05/27/22 Range/Units 10:21 10:21 11:47 WBC 10.7 H (3.8-10.6) k/uL RBC 3.51 L (3.80-5.40) m/uL Hgb 10.5 L (11.4-16.0) gm/dL MCHC 30.7 L (31.0-37.0) g/dL RDW 16.4 H (11.5-15.5) % Sodium 132 L (137-145) mmol/L Carbon Dioxide 19 L (22-30) mmol/L BUN 27 H (7-17) mg/dL Glucose 166 H (74-99) mg/dL POC Glucose (mg/dL) 166 H (70-110) mg/dL Calcium 7.9 L (8.4-10.2) mg/dL Total Protein 5.3 L (6.3-8.2) g/dL Albumin 2.4 L (3.5-5.0) g/dL Microbiology - Last 24 Hours (Table) 05/25/22 14:20 Gram Stain - Final Groin Wound Culture - Final Klebsiella pneumoniae 05/25/22 14:29 Blood Culture - Preliminary Blood No Growth after 24 hours 05/25/22 14:29 Blood Culture - Preliminary Blood No Growth after 24 hours Assessment and Plan (1) Right groin wound Current Visit: Yes Status: Acute Code(s): S31.109A - UNSP OPN WND ABD WALL, UNSP Q W/O PENET PERIT CAV, INIT SNOMED Code(s): 228888119 (2) Soft tissue radionecrosis Current Visit: No Status: Acute Priority: High Code(s): L59.8 - OTH DISRD OF THE SKIN, SUBCU RELATED TO RADIATION; Y84.2 - RADIOLOG PROC/RADIOTHRPY CAUSE ABN REACT/COMPL, W/O MISADVNT SNOMED Code(s): 30351743 Plan: 1patient with extensive wound to the right groin and lower abdominal pannus with necrotic tissue foul-smelling concerning for underlying deep infection and will need to cover for both gram-positive skin brien as well as gram-negative pathogen. 2patient as scheduled for debridement and deep cultures tomorrow that is 05/28/2022 3patient local culture has been finalized with ESBL Klebsiella, we will discontinue Unasyn and add meropenem, continue Vanco. till debridement and deep culture finalized Time with Patient: Less than 30
[2022-05-27] MEDS: MEROPENEM 1 GM in SODIUM CHLORIDE 0.9% 100 ML IVPB SCH (23:47)
[2022-05-28] MEDS: LEVOTHYROXINE 100 MCG TAB PO SCH (05:43)
[2022-05-28 06:54] LABS: Glucose,Whole Blood 156 mg/dL (70-110)
[2022-05-28] MEDS: INSULIN ASPART (NovoLOG) 100 UNIT/ML VIAL SQ SCH ×7 (07:45→21:21)
[2022-05-28] MEDS: metFORMIN 500 MG TAB PO SCH ×3 (07:47→17:43)
[2022-05-28] MEDS: MULTIVITAMINS, THERA 1 EACH TAB PO SCH (07:47)
[2022-05-28] MEDS: PANTOPRAZOLE 40 MG/10 ML VIAL IV SCH (07:56)
[2022-05-28] MEDS: MEROPENEM 1 GM in SODIUM CHLORIDE 0.9% 100 ML IVPB SCH ×3 (07:56→23:48)
[2022-05-28] MEDS: carvediloL 12.5 MG TAB PO SCH ×2 (07:56→17:43)
[2022-05-28] MEDS: OXYBUTYNIN 10 MG TAB.ER.24 PO SCH (07:57)
[2022-05-28] MEDS: DILTIAZEM CD 180 MG CAP.ER.24H PO SCH (07:57)
[2022-05-28] MEDS: VANCOMYCIN 2,000 MG in SODIUM CHLORIDE 0.9% 500 ML 500 ML IVPB SCH (09:14)
[2022-05-28 11:31] LABS: Glucose,Whole Blood 154 mg/dL (70-110)
[2022-05-28] MEDS ORDERED: DIGOXIN 250 MCG/ML 2 ML AMP IVP STA (11:53)
--- NOTE | 2022-05-28 12:09 | P.CRDCN ---
History of Present Illness History of present illness: HISTORY OF PRESENTING ILLNESS Patient is a pleasant 61-year-old female with history of Recent CVA on 05/19/2022, paroxysmal atrial fibrillation on Eliquis, uterine cancer undergoing chemotherapy, apparent CAD with prior "blockage with its own bypasses "likely consistent with [employer] from 2019, hypertension, hyperlipidemia, obesity, diabetes mellitus type 2. We have been asked to the patient consultation for atrial fibrillation with RVR and cardiac clearance. Patient presented to the ER on secondary to worsening wounds and infection. Patient followed by wound care outpatient and was found to have more perineal wounds. Infectious disease following patient and patient on IV antibiotics, meropenem. Patient also evaluated by surgery and recommending debridement. Patient seen and examined at bedside, no acute distress. She denies any shortness of breath, palpitations, chest pain, lightheadedness or dizziness. She denies any fever, chills. Patient was recently admitted on 05/18/20 found to have an Acute stroke in the left johnston radiata on the posterior aspect of the left frontal lobe. Cardiology saw patient for atrial fibrillation and patient was placed on E liquis anticoagulation. DIAGNOSTICS: EKG on admission atrial fibrillation, heart rate 87 Telemetry reveals atrial fibrillation patient was relatively controlled ventricular rates HR 90slow 100s, this morning 110-120s. Echocardiogram 05/19/2022 revealed EF 5560%, severe left ventricular hypertrop hy, trace mitral and trace tricuspid regurgitation Chest x-ray revealed scattered parenchymal changes, no acute heart failure or infiltrates Hip x-ray reported as no acute osseous pathology, no evidence of osseous erosion, subcutaneoushistory is provided history of infection. Consider correlation with CT there is concern for subcutaneous Meds: Lovastatin 40 mg nightly, Coreg 25 mg twice a day, Cardizem 180 mg daily Labs, WBC 10.7, hemoglobin 10.5, platelets 365, sodium 132, potassium 4.7, chlor jamison 106, CO2 9 seen, BUN 27, serum creatinine 0.92, hemoglobin A1c 7.4 REVIEW OF SYSTEMS At the time of my exam: CONSTITUTIONAL: Denies fever or chills. CARDIOVASCULAR: Denies chest pain, shortness of breath, orthopnea, PND or palpitations. RESPIRATORY: Denies cough. GASTROINTESTINAL: Denies abdominal pain, diarrhea, constipation, nausea or vomiting. MUSCULOSKELETAL: Denies myalgias. NEUROLOGIC: Denies any numbness, headaches, or weakness ENDOCRINE: Denies fatigue, weight change, polydipsia or polyurina. GENITOURINARY: Denies burning, hematuria or urgency with micturation. HEMATOLOGIC: Denies history of anemia or bleeding. PHYSICAL EXAMINATION Vital signs reviewed. CONSTITUTIONAL: No apparent distress, obese HEENT: Head is normocephalic. Pupils are equal, round. Sclerae anicteric. Mucous membranes of the mouth are moist. No JVD. CHEST EXAMINATION: Lungs are clear to auscultation. No chest wall tenderness is noted on palpation or with deep breathing. HEART EXAMINATION: Irregular, tachycardic rate and rhythm. S1, S2 heard. No murmurs, gallops or rub. ABDOMEN: Soft, nontender. Positive bowel sounds. EXTREMITIES: 2+ peripheral pulses, no lower extremity edema and no calf tend erness. SKIN: Right groin necrotic wound, multiple wounds in perineal area NEUROLOGIC EXAMINATION: Patient is awake, alert and oriented x3. ASSESSMENT Right groin necrotic wound Multiple wounds in groin and perineal area Paroxysmal atrial fibrillation on Eliquis Recent Acute CVA in 05/19/2022 Reported history of CAD with likely [employer] Hypertension Diabetes mellitus type 2 Uterine cancer undergoing chemotherapy with prior significant vaginal bleeding Obesity PLAN Start patient on Digoxin, 500mcg IV, then 250mcg 6 hours after, then PO digoxin start tomorrow Resume Eliquis as soon as possible pending surgery Continue Coreg and PO cardizem Patient is at increased risk for surgery today given atrial fibrillation with RVR. Patient also with recent CVA. Patient is not able to perform >4 METs levels of activity. Further recommendations based on clinical course Nurse practitioner note has been reviewed by physician. Signing provider agrees with the documented findings, assessment, and plan of care. Past Medical History Past Medical History: Atrial Fibrillation, Cancer, Diabetes Mellitus, GERD/Reflux, Hypertension, Thyroid Disorder Additional Past Medical History / Comment(s): Pt states she has had intermittent vaginal bleeding over past one year, NIDDM type II, UTIs, hypothyroid, chronic low back pain, occasional bilateral leg pain at night. Ovarian cancer with chemo and radiation. History of Any Multi-Drug Resistant Organisms: None Reported Past Surgical History: Heart Catheterization, Tonsillectomy, Uterine Ablation Additional Past Surgical History / Comment(s): Nasal fracture with surgery, wisdom teeth extractions. Past Anesthesia/Blood Transfusion Reactions: Postoperative Nausea & Vomiting (PONV) Additional Past Anesthesia/Blood Transfusion Reaction / Comment(s): Pt received blood this hospitalization without reaction. Past Psychological History: Depression Additional Psychological History / Comment(s): Pt resides alone in an apartment. She uses a walker or cane. She drives. Smoking Status: Former smoker Past Alcohol Use History: None Reported Additional Past Alcohol Use History / Comment(s): PT started smoking as a teen and quit in 1994. Past Drug Use History: None Reported - Past Family History Father Family Medical History: Cancer Additional Family Medical History / Comment(s): Father of lung cancer. He was a smoker. Mother Family Medical History: Vascular Disorder Additional Family Medical History / Comment(s): Mother of a cerebral aneurysm at the age of 58 yrs. Medications and Allergies Home Medications Medication Instructions Recorded Confirmed Type Levothyroxine Sodium 200 mcg PO DAILY 10/10/21 05/25/22 History Nitroglycerin Sl Tabs [Nitrostat] 0.4 mg SL Q5M PRN 10/10/21 05/25/22 History Nystatin 100,000Unit/gm Cream 1 applic TOPICAL BID PRN 10/10/21 05/25/22 History [Mycostatin Cream] Acetaminophen Tab [Tylenol] 1,000 mg PO Q6H PRN 05/18/22 05/25/22 History Omeprazole Magnesium [PriLOSEC OTC] 20 mg PO DAILY 05/18/22 05/25/22 History Oxybutynin ER [Ditropan Xl] 10 mg PO DAILY 05/18/22 05/25/22 History carvediloL [Coreg] 25 mg PO BID 05/18/22 05/25/22 History dilTIAZem HCL [Cardizem LA] 180 mg PO DAILY 05/18/22 05/25/22 History metFORMIN HCL ER [Glucophage XR] 500 mg PO TID-W/MEALS 05/18/22 05/25/22 History Acetaminophen/Diphenhydramine 2 tab PO HS #7 tab 05/23/22 05/25/22 Rx [Tylenol PM 500-25mg] Apixaban [Eliquis] 2.5 mg PO BID tab 05/23/22 05/25/22 Rx Atorvastatin [Lipitor] 40 mg PO HS tab 05/23/22 05/25/22 Rx HYDROcodone/APAP 7.5-325MG [[place] 1 tab PO Q6HR PRN 3 Days #12 tab 05/23/22 05/25/22 Rx 7.5-325] INSULIN ASPART (NovoLOG) [NovoLOG 5 unit SQ ACHS 05/25/22 05/25/22 History (formulary)] Allergies Allergy/AdvReac Type Severity Reaction Status Date / Time apixaban [From Eliis] AdvReac Unsure, Verified 05/25/22 23:05 told by Baby Nurse not to take Physical Exam Vitals: Vital Signs Temp Pulse Resp BP Pulse Ox 05/28/22 07:58 84 18 118/59 96 05/28/22 05:00 98.0 F 83 18 115/68 97 05/27/22 19:18 98.6 F 95 18 115/67 96 05/27/22 13:00 97.9 F 76 16 100/57 97 Intake and Output 05/27/22 05/28/22 05/28/22 22:59 06:59 14:59 Intake Total 0 Balance 0 Intake: Oral 0 Other: Voiding Method Diaper Incontinent # Voids 4 2 # Bowel Movements 1 1 Results 05/27/22 10:21 05/28/22 08:35 Cardiac Enzymes 05/27/22 Range/Units 10: AST 29 (14-36) U/L Coagulation 05/27/22 Range/Units 10:21 PT 12.0 (9.0-12.0) sec CBC 05/27/22 Range/Units 10:21 WBC 10.7 H (3.8-10.6) k/uL RBC 3.51 L (3.80-5.40) m/uL Hgb 10.5 L (11.4-16.0) gm/dL Hct 34.4 (34.0-46.0) % Plt Count 365 (150-450) k/uL Comprehensive Metabolic Panel 05/27/22 05/28/22 Range/Units 10:21 08:35 Sodium 132 L (137-145) mmol/L Potassium 4.7 (3.5-5.1) mmol/L Chloride 106 (98-107) mmol/L Carbon Dioxide 19 L (22-30) mmol/L BUN 27 H (7-17) mg/dL Creatinine 0.92 0.86 (0.52-1.04) mg/dL Glucose 166 H (74-99) mg/dL Calcium 7.9 L (8.4-10.2) mg/dL AST 29 (14-36) U/L ALT 13 (4-34) U/L Alkaline Phosphatase 91 (38-126) U/L Total Protein 5.3 L (6.3-8.2) g/dL Albumin 2.4 L (3.5-5.0) g/dL Current Medications Generic Name Dose Route Start Last Admin Trade Name Freq PRN Reason Stop Dose Admin Acetaminophen 650 mg 05/25/22 17:39 Acetaminophen Tab 325 Mg Tab PO Q6HR PRN Mild Pain or Fever > 100.5 Hydrocodone Bitart/Acetaminophen 1 each 05/25/22 15:54 05/27/22 22:02 Hydrocodone/Apap 7.5-325mg 1 Each Tab PO 1 each Q6HR PRN Administration Pain Atorvastatin Calcium 40 mg 05/25/22 21:00 05/27/22 22:03 Atorvastatin 40 Mg Tab PO 40 mg HS FANNY Administration Calcium Carbonate/Glycine 1,000 mg 05/25/22 17:39 Calcium Carbonate 500 Mg Chewable PO Q4HR PRN Dyspepsia Carvedilol 25 mg 05/25/22 17:30 05/28/22 07:56 Carvedilol 12.5 Mg Tab PO 25 mg BID-W/MEALS FANNY Administration Diltiazem HCl 180 mg 05/26/22 09:00 05/28/22 07:57 Diltiazem Cd 180 Mg Cap.Er.24h PO 180 mg DAILY FANNY Administration Sodium Chloride 1,000 mls @ 50 mls/hr 05/25/22 14:15 05/27/22 23:49 Saline 0.9% IV 50 mls/hr .Q20H FANNY Administration Vancomycin HCl 2,000 mg/ 500 mls @ 167 mls/hr 05/26/22 09:00 05/28/22 09:14 Sodium Chloride IVPB 167 mls/hr Q16H FANNY Administration Meropenem 1 gm/ Sodium 100 mls @ 33.3 mls/hr 05/28/22 00:00 05/28/22 07:56 Chloride IVPB 33.3 mls/hr Q8HR FANNY Administration Protocol Insulin Aspart 5 unit 05/25/22 17:30 05/28/22 07:45 Insulin Aspart (Novolog) 100 Unit/Ml Vial SQ Not Given ACHS [facility] Insulin Aspart 0 unit 05/25/22 17:41 05/28/22 07:45 Insulin Aspart (Novolog) 100 Unit/Ml Vial SQ Not Given AC-TID [facility] Protocol Lactulose 20 gm 05/25/22 17:39 Lactulose 20 Gm/30 Ml Cup PO DAILY PRN Constipation Levothyroxine Sodium 200 mcg 05/26/22 06:30 05/28/22 05:43 Levothyroxine 100 Mcg Tab PO 200 mcg DAILY@0630 [facility] Administration Lorazepam 0.5 mg 05/25/22 17:39 Lorazepam 0.5 Mg Tab PO Q6HR PRN Anxiety Metformin HCl 500 mg 05/25/22 17:30 05/28/22 07:47 Metformin 500 Mg Tab PO Not Given TID-W/MEALS [facility] Morphine Sulfate 1 mg 05/25/22 21:41 Morphine Sulfate 2 Mg/Ml Syringe IVP Q6HR PRN Pain/Discomfort Multivitamins 1 each 05/26/22 15:30 05/28/22 07:47 Multivitamins, Thera 1 Each Tab PO Not Given DAILY [facility] Naloxone HCl 0.2 mg 05/25/22 15:47 Naloxone 0.4 Mg/Ml 1 Ml Vial IV Q2M PRN Opioid Reversal Nitroglycerin 0.4 mg 05/25/22 16:06 Nitroglycerin Sl Tabs 0.4 Mg Tab SUBLINGUAL Q5M PRN Chest Pain Ondansetron HCl 4 mg 05/25/22 17:39 Ondansetron 4 Mg/2 Ml Vial IVP Q8HR PRN Nausea And Vomiting Oxybutynin Chloride 10 mg 05/26/22 09:00 05/28/22 07:57 Oxybutynin 10 Mg Tab.Er.24 PO 10 mg DAILY [facility] Administration Pantoprazole Sodium 40 mg 05/26/22 09:00 05/28/22 07:56 Pantoprazole 40 Mg/10 Ml Vial IV 40 mg DAILY FANNY Administration Temazepam 15 mg 05/25/22 17:39 Temazepam 15 Mg Cap PO HS PRN Insomnia Intake and Output 05/27/22 05/28/22 05/28/22 22:59 06:59 14:59 Intake Total 0 Balance 0 Intake: Oral 0 Other: Voiding Method Diaper Incontinent # Voids 4 2 # Bowel Movements 1 1 05/27/22 10:21 05/28/22 08:35
[2022-05-28] MEDS: HYDROcodone/APAP 7.5-325MG 1 EACH TAB PO PRN ×2 (12:22→21:20)
--- NOTE | 2022-05-28 14:44 | P.PN ---
Progress Note - Text Progress Note Date: 05/28/22 Chief Complaint: wounds This is a pleasant 61-year-old patient, follows with Dr. Smooth Bob. Chronic stable medical conditions include diabetes, GERD, essential hypertension, hypothyroid. Chronic low back pain. Ovarian cancer treatment for chemo and radiation treatment. Patient at baseline uses a walker and a cane. Was recently in the hospital from May 19 through May 24. Patient presented to ER with some right foot numbness. Patient was dysarthric. Stroke found in the left coronary radiata on the posterior aspect of left frontal lobe. Patient was seen by speech. Was starting a diet. Patient in September 2021 was having significant vaginal bleeding. 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 No metastatic disease. She was not felt to be surgical candidate and was to receive 3 cycles of carboplatin/Taxol followed by radiation and 3 additional cycles of the above. She completed radiation on 03/14/2022. Started back on the carbotaxol April 03 and was status post cycle 6 day 1 on May 16. Patient during this admission was started on eliquis with the decision if the patient was to bleed then eliquis be discontinued. Yesterday the patient was noted to have more perianal wounds. Was being followed by wound care. Was evaluated by Taye towards was stable and could be followed up outpatient with Dr. stout who the patient knows from before. Patient was sent in from the [facility] today for worsening of the wounds. Area of eschar was present. Some drainage. odor to it. No fever and chills. Appetite fair. May 26: Patient is IV Zosyn and vancomycin. Consultation to ID and surgery. Significant order. Oral intake fair. Discussed with patient. Will need possible debridement. May 27: Seen by surgery. Pending debridement wound VAC, by Dr. Kasper. On antibiotics. Oral intake fair. May 28: Atrial fibrillation uncontrolled. 130s. Telemetry. Cardiology consulted. Pending debridement this afternoon. Cardizem loading done by cardiology. Nothing by mouth for procedure. Active Medications Acetaminophen (Acetaminophen Tab 325 Mg Tab) 650 mg PO Q6HR PRN PRN Reason: Mild Pain or Fever > 100.5 Hydrocodone Bitart/Acetaminophen (Hydrocodone/Apap 7.5-325mg 1 Each Tab) 1 each PO Q6HR PRN PRN Reason: Pain Last Admin: 05/28/22 12:22 Dose: 1 each Atorvastatin Calcium (Atorvastatin 40 Mg Tab) 40 mg PO HS [facility] Last Admin: 05/27/22 22:03 Dose: 40 mg Calcium Carbonate/Glycine (Calcium Carbonate 500 Mg Chewable) 1,000 mg PO Q4HR PRN PRN Reason: Dyspepsia Carvedilol (Carvedilol 12.5 Mg Tab) 25 mg PO BID-W/MEALS [facility] Last Admin: 05/28/22 07:56 Dose: 25 mg Digoxin (Digoxin 250 Mcg/Ml 2 Ml Amp) 250 mcg IVP ONCE ONE Stop: 05/28/22 18:01 Digoxin (Digoxin 250 Mcg Tab) 250 mcg PO DAILY [facility] Diltiazem HCl (Diltiazem Cd 180 Mg Cap.Er.24h) 180 mg PO DAILY [facility] Last Admin: 05/28/22 07:57 Dose: 180 mg Sodium Chloride (Saline 0.9%) 1,000 mls @ 50 mls/hr IV .Q20H [facility] Last Admin: 05/27/22 23:49 Dose: 50 mls/hr Vancomycin HCl 2,000 mg/ (Sodium Chloride) 500 mls @ 167 mls/hr IVPB Q16H [facility] Last Admin: 05/28/22 09:14 Dose: 167 mls/hr Meropenem 1 gm/ Sodium (Chloride) 100 mls @ 33.3 mls/hr IVPB Q8HR [facility]; Protocol Last Admin: 05/28/22 07:56 Dose: 33.3 mls/hr Insulin Aspart (Insulin Aspart (Novolog) 100 Unit/Ml Vial) 5 unit SQ ACHS FANNY Last Admin: 05/28/22 12:24 Dose: Not Given Insulin Aspart (Insulin Aspart (Novolog) 100 Unit/Ml Vial) 0 unit SQ AC-TID [facility]; Protocol Last Admin: 05/28/22 14:16 Dose: 1 unit Lactulose (Lactulose 20 Gm/30 Ml Cup) 20 gm PO DAILY PRN PRN Reason: Constipation Levothyroxine Sodium (Levothyroxine 100 Mcg Tab) 200 mcg PO DAILY@0630 [facility] Last Admin: 05/28/22 05:43 Dose: 200 mcg Lorazepam (Lorazepam 0.5 Mg Tab) 0.5 mg PO Q6HR PRN PRN Reason: Anxiety Metformin HCl (Metformin 500 Mg Tab) 500 mg PO TID-W/MEALS [facility] Last Admin: 05/28/22 14:14 Dose: 500 mg Morphine Sulfate (Morphine Sulfate 2 Mg/Ml Syringe) 1 mg IVP Q6HR PRN PRN Reason: Pain/Discomfort Multivitamins (Multivitamins, Thera 1 Each Tab) 1 each PO DAILY [facility] Last Admin: 05/28/22 07:47 Dose: Not Given Naloxone HCl (Naloxone 0.4 Mg/Ml 1 Ml Vial) 0.2 mg IV Q2M PRN PRN Reason: Opioid Reversal Nitroglycerin (Nitroglycerin Sl Tabs 0.4 Mg Tab) 0.4 mg SUBLINGUAL Q5M PRN PRN Reason: Chest Pain Ondansetron HCl (Ondansetron 4 Mg/2 Ml Vial) 4 mg IVP Q8HR PRN PRN Reason: Nausea And Vomiting Oxybutynin Chloride (Oxybutynin 10 Mg Tab.Er.24) 10 mg PO DAILY [facility] Last Admin: 05/28/22 07:57 Dose: 10 mg Pantoprazole Sodium (Pantoprazole 40 Mg/10 Ml Vial) 40 mg IV DAILY [facility] Last Admin: 05/28/22 07:56 Dose: 40 mg Temazepam (Temazepam 15 Mg Cap) 15 mg PO HS PRN PRN Reason: Insomnia Past medical history to include: Atrial fibrillation, diabetes, GERD, hypertension, hypothyroid, ovarian cancer with chemo and radiation treatment. Depression. Social history: Was discharged to rehab yesterday. Does use a walker and cane. Patient started smoking as a teenager and stopped in 1994. No alcohol. Family history: Father of lung cancer Physical examination: VITAL SIGNS: 97.9, 130s, 18, 129/83, 97% room air GENERAL: laying in bed awake. Tired EYES: Pupils equal. Conjunctiva normal. HEENT: External appearance of nose and ears normal, oral cavity grossly normal. NECK: JVD unable to assess; masses not palpable. HEART: Heart sounds irregular; no edema. LUNGS: Respiratory rate normal; distant breath sound. ABDOMEN: Soft, nontender, liver spleen not palpable, no masses palpable. Perianal wounds C wound care notes. PSYCH: Alert and oriented x3; mood and affect a bit low MUSCULOSKELETAL:No Clubbing/cyanosis;muscles-grossly intact, evidence of OA DERMATOLOGICAL:/ wounds. Strong order. More detailed in nursing notes NEUROLOGICAL: Slurred speech . Power and sensation grossly intact. Mouth slightly pulled to the left INVESTIGATIONS, reviewed in the clinical context: May 27: White count 10.7 hemoglobin 10.5 potassium 4.7 creatinine 0.9 to White count 9.4 hemoglobin 11 platelets 356 potassium 5.2 creatinine 0.9 EKG tracing personally reviewed by me-atrial fibrillation. Rate 87 From recent admission: MRI brain without contrast: Acute/subacute CVA of the left coronary radiata on the posterior aspect of the left frontal lobe. Nonspecific white matter changes. CT brain: Mild atrophic CT angiography of the brain: Nonspecific 2-D echocardiogram: EF 55-60%, severe LVH Assessment and plan: --Multiple superficial wounds in the area of the groin and perineal area. Including drainage and anaerobic odor. Large necrotic wound.: Slow to respond Pending debridement and wound VAC by Dr. Kasper. IV Unasyn and vancomycin. -Acute stroke in the left johnston radiata on the posterior aspect of the left frontal lobe. suspected to be embolic from underlying paroxysmal atrial fibrillation, on 05/18/2022 Eliquis. No aspirin. -Paroxysmal atrial fibrillation: Uncontrolled eliquis. Coreg 25 mg twice a day. Cardizem CD 180 mg a day. IV digoxin today -Acute dysphagia from underlying stroke : Chopped diet -Morbid obesity BMI 48.9 Weight loss measures -GERD Prilosec 20 mg -Hypertensive heart disease Coreg 25 mg twice a day. Cardizem CD 180 mg a day. -Essential hypertension Coreg 25 mg twice a day, Cardizem LA 180 mg a day -Chronic urinary stress incontinence Ditropan XL 10 mg a day -Hypothyroid Synthroid 200 g a day -Chronic gait dysfunction Uses a cane/walker at baseline IV Unasyn and IV vancomycin.. Pending debridement as soft brown. Cardiology consulted. IV chocks and given. Discussed with patient.
--- NOTE | 2022-05-28 14:54 | P.PN ---
Subjective Progress Note Date: 05/28/22 CHIEF COMPLAINT: Right groin infection HISTORY OF PRESENT ILLNESS: Surgical service following regards to complicated right groin wound. Patient is currently on IV antibiotics. Initially patient was scheduled for surgical debridement today. However, she was in atrial fibrillation with rapid ventricular response. Heart rate was elevated into the 140s. Cardiology consulted. They've adjusted medications and added digoxin. Patient is being transferred to the cardiac floor. Due to patient's high risk for surgery at this time because of her A. fib with RVR surgery has been canceled as recommended by cardiology. Afebrile. No new labs for today PHYSICAL EXAM: VITAL SIGNS: Reviewed GENERAL: Well-developed in no acute distress. HEENT: No sclera icterus. Extraocular movements grossly intact. Moist buccal mucosa. Head is atraumatic, normocephalic. Hears conversational speech. No nasal drai nage. NECK: Supple without lymphadenopathy. CHEST: Non-labored respirations and equal bilateral excursions. CARDIOVASCULAR: Palpable 2+ radial pulses. ABDOMEN: Right groin wound with skin necrosis MUSCULOSKELETAL: No clubbing or cyanosis. NEUROLOGIC: No focal or lateralizing signs. Cranial nerves II through XII grossly intact. PSYCH: Appropriate affect. Alert and oriented to person, place and time. SKIN: Well perfused. Good skin turgor. ASSESSMENT: 1. Right groin necrotic wound 2. Panniculitis 3. Morbid obesity PLAN: -Surgical debridement canceled for today due to A. fib with RVR -Cardiology consult appreciated. Atrial fibrillation management per cardiology -Resume carb consistent diet -Add ensure compact 3 times a day to aid in nutrition support to help with wound healing -Continue antibiotics -Patient will require debridement of right groin wound during this admission Physician Brick Layer note has been reviewed by physician. Signing provider agrees with the documented findings, assessment, and plan of care. CHIEF COMPLAINT: Right groin infection HISTORY OF PRESENT ILLNESS: The patient is a 61 year old female with complicated right groin wound ongoing for over 5+ months. Patient developed new cardiac arrhythmia with atrial fibrillation. As a result, surgery on hold. Patient is on antibiotics. She denies any increased abdominal pain. REVIEW OF ORGAN SYSTEMS: No fevers or chills. No chest pain. No nausea or vomiting. PHYSICAL EXAM: VITALS: Reviewed CONSTITUTIONAL: Well developed and in no acute distress. EYES: Conjuctivae without sclera icterus. Extraocular movements grossly intact. HEAD, EARS, NOSE, THROAT: Moist buccal mucosa. Head is atraumatic, normocephalic. Hears conversational speech. No nasal drainage. RESPIRATORY: Non-labored respirations and equal bilateral excursions. No gross wheezes. CARDIOVASCULAR: Palpable 2+ radial pulses. ABDOMEN: Right groin wound 20 cm x 10 cm with skin necrosis. MUSCULOSKELETAL: No clubbing cyanosis. SKIN: Warm and well perfused with good skin turgor. NEUROLOGIC: Cranial nerves II through XII grossly intact. No focal or lateralizing signs. PSYCH: Appropriate affect. Alert and oriented to person, place and time. Displays appropriate insight. CLINCAL LABS: Reviewed. Blood sugar glucose less than 250 ASSESSMENT: 1. Right groin necrotic wound 2. Panniculitis 3. Morbid obesity 4. New-onset atrial fibrillation PLAN: 1. Surgery canceled due to new cardiac event. 2. Pending clearance from cardiology, will proceed with debridement of right groin wound. 3. Supplement nutrition with high protein diet, 75-90 g daily. Objective - Vital Signs Vital signs: Vital Signs Temp 97.9 F 05/28/22 11:40 Pulse 92 05/28/22 11:40 Resp 18 05/28/22 11:40 BP 129/83 05/28/22 11:40 Pulse Ox 97 05/28/22 11:40 FiO2 Intake & Output 05/27/22 05/28/22 05/28/22 18:59 06:59 18:59 Intake Total 0 296 Balance 0 296 Intake: Oral 0 296 Other: Voiding Method Diaper Diaper Diaper Incontinent Incontinent Incontinent # Voids 4 2 # Bowel Movements 1 1 - Labs CBC & Chem 7: 05/27/22 10:21 05/28/22 08:35 Labs: Abnormal Lab Results - Last 24 Hours (Table) 05/27/22 05/27/22 05/28/22 Range/Units 17:19 21:47 06:53 POC Glucose (mg/dL) 158 H 160 H 156 H (70-110) mg/dL 05/28/22 Range/Units 11:29 POC Glucose (mg/dL) 154 H (70-110) mg/dL Microbiology - Last 24 Hours (Table) 05/25/22 14:29 Blood Culture - Preliminary Blood No Growth after 48 hours 05/25/22 14:29 Blood Culture - Preliminary Blood No Growth after 48 hours 05/25/22 14:20 Gram Stain - Final Groin Wound Culture - Final Klebsiella pneumoniae
[2022-05-28 17:34] LABS: Glucose,Whole Blood 129 mg/dL (70-110)
[2022-05-28] MEDS ORDERED: DIGOXIN 250 MCG/ML 2 ML AMP IVP ONE (18:00)
[2022-05-28 20:31] LABS: Glucose,Whole Blood 147 mg/dL (70-110)
[2022-05-28] MEDS: ATORVASTATIN 40 MG TAB PO SCH (21:21)
[2022-05-29] MEDS: VANCOMYCIN 2,000 MG in SODIUM CHLORIDE 0.9% 500 ML 500 ML IVPB SCH ×2 (02:23→16:27)
[2022-05-29] MEDS: LEVOTHYROXINE 100 MCG TAB PO SCH (05:23)
[2022-05-29] MEDS: HYDROcodone/APAP 7.5-325MG 1 EACH TAB PO PRN ×3 (05:23→20:42)
[2022-05-29 07:03] LABS: Glucose,Whole Blood 154 mg/dL (70-110)
[2022-05-29] MEDS: MEROPENEM 1 GM in SODIUM CHLORIDE 0.9% 100 ML IVPB SCH ×3 (08:09→23:58)
[2022-05-29] MEDS: DIGOXIN 250 MCG TAB PO SCH (08:10)
[2022-05-29] MEDS: metFORMIN 500 MG TAB PO SCH ×3 (08:10→17:26)
[2022-05-29] MEDS: MULTIVITAMINS, THERA 1 EACH TAB PO SCH (08:10)
[2022-05-29] MEDS: PANTOPRAZOLE 40 MG/10 ML VIAL IV SCH (08:10)
[2022-05-29] MEDS: SODIUM CHLORIDE 0.9% 1,000 ML IV SCH (08:10)
[2022-05-29] MEDS: DILTIAZEM CD 180 MG CAP.ER.24H PO SCH (08:10)
[2022-05-29] MEDS: INSULIN ASPART (NovoLOG) 100 UNIT/ML VIAL SQ SCH ×7 (08:10→20:42)
[2022-05-29] MEDS: OXYBUTYNIN 10 MG TAB.ER.24 PO SCH (08:10)
[2022-05-29] MEDS: carvediloL 12.5 MG TAB PO SCH ×2 (08:10→17:26)
[2022-05-29 11:02] LABS: Glucose,Whole Blood 189 mg/dL (70-110)
--- NOTE | 2022-05-29 11:35 | P.PN ---
Subjective Patient is a pleasant 61-year-old female with history of Recent CVA on 05/19/2022, paroxysmal atrial fibrillation on Eliquis, uterine cancer undergoing chemotherapy, apparent CAD with prior "blockage with its own bypasses "likely consistent with ELASTIC YARN TWISTER from 2019, hypertension, hyperlipidemia, obesity, diabetes mellitus type 2. We have been asked to the patient consultation for atrial fibrillation with RVR and cardiac clearance. Patient presented to the ER on 05/24/2022 secondary to worsening wounds and infection. Patient followed by wound care outpatient and was found to have more perineal wounds. Infectious disease following patient and patient on IV antibiotics, meropenem. Patient also evaluated by surgery and recommending debridement. Patient seen and examined at bedside, no acute distress. She denies any shortness of breath, palpitations, chest pain, lightheadedness or dizziness. She denies any fever, chills. Patient was recently admitted on 05/18/20 found to have an Acute stroke in the left johnston radiata on the posterior aspect of the left frontal lobe. Cardiology saw patient for atrial fibrillation and patient was placed on Eliquis anticoagulation. DIAGNOSTICS: Echocardiogram 05/19/2022 revealed EF 5560%, severe left ventricular hypertrophy, trace mitral and trace tricuspid regurgitation 05/29/2022 Patient seen and examined at bedside, sitting at the edge of the pad working with physical therapy. No symptoms of chest pain or shortness of breath or palpitations. She denies any lightheadedness or dizziness. She was started on digoxin yesterday. Telemetry reviewed patient is in atrial fibrillation with better controlled heart rates. HR 90s. Meds: Atorvastatin 40 mg nightly, Coreg 25 mg twice a day, digoxin 250mcg daily, Cardizem 180 mg daily PHYSICAL EXAMINATION Vital signs reviewed. CONSTITUTIONAL: No apparent distress, obese HEENT: Head is normocephalic. Pupils are equal, round. Sclerae anicteric. Mucous membranes of the mouth are moist. No JVD. CHEST EXAMINATION: Lungs are clear to auscultation. No chest wall tenderness is noted on palpation or with deep breathing. HEART EXAMINATION: Irregular, rate and rhythm. S1, S2 heard. No murmurs, gallops or rub. ABDOMEN: Soft, nontender. Positive bowel sounds. EXTREMITIES: 2+ peripheral pulses, no lower extremity edema and no calf tenderne ss. SKIN: Right groin necrotic wound, multiple wounds in perineal area NEUROLOGIC EXAMINATION: Patient is awake, alert and oriented x3. ASSESSMENT Right groin necrotic wound Multiple wounds in groin and perineal area Paroxysmal atrial fibrillation on Eliquis Recent Acute CVA in 05/19/2022 Reported history of CAD with likely ELASTIC YARN TWISTER Hypertension Diabetes mellitus type 2 Uterine cancer undergoing chemotherapy with prior significant vaginal bleeding Obesity PLAN Continue Digoxin 250mcg daily Resume Eliquis as soon as possible pending surgery Continue Coreg and PO cardizem From a cardiology perspective, patient's heart rates are better controlled, Patient is hemodynamically stable. Patient is not able to perform >4 METs levels of activity, however, there are no absolute contraindications to undergo surgery at this time. Nurse practitioner note has been reviewed by physician. Signing provider agrees with the documented findings, assessment, and plan of care. Objective - Vital Signs Vital signs: Vital Signs Temp 97.9 F 05/29/22 11:01 Pulse 64 05/29/22 11:01 Resp 18 05/29/22 11:01 BP 113/67 05/29/22 11:01 Pulse Ox 97 05/29/22 11:01 FiO2 Intake & Output 05/28/22 05/29/22 05/29/22 18:59 06:59 18:59 Intake Total 592 520 Balance 592 520 Intake: Oral 592 520 Other: Voiding Method Diaper Diaper Diaper Incontinent Incontinent Incontinent # Voids 1 3 1 # Bowel Movements 2 1 - Labs CBC & Chem 7: 05/27/22 10:21 05/28/22 08:35 Labs: Abnormal Lab Results - Last 24 Hours (Table) 05/28/22 05/28/22 05/28/22 Range/Units 11:29 17:33 20:30 POC Glucose (mg/dL) 154 H 129 H 147 H (70-110) mg/dL 05/29/22 05/29/22 Range/Units 07:02 11:01 POC Glucose (mg/dL) 154 H 189 H (70-110) mg/dL Microbiology - Last 24 Hours (Table) 05/25/22 14:29 Blood Culture - Preliminary Blood No Growth after 72 hours 05/25/22 14:29 Blood Culture - Preliminary Blood No Growth after 72 hours
--- NOTE | 2022-05-29 13:51 | P.PN ---
Subjective Progress Note Date: 05/29/22 CHIEF COMPLAINT: Right groin infection HISTORY OF PRESENT ILLNESS: Surgical service following regards to complicated right groin wound. Patient is currently on IV antibiotics. Surgery was canceled yesterday due to A. fib with RVR. Patient followed closely by cardiology. Patient's heart rate is better controlled. Per cardiology there is no absolute contraindication for surgery. Patient lying in bed comfortably. Denies any nausea or vomiting. Pain control. Afebrile. PHYSICAL EXAM: VITAL SIGNS: Reviewed GENERAL: Well-developed in no acute distress. HEENT: No sclera icterus. Extraocular movements grossly intact. Moist buccal mucosa. Head is atraumatic, normocephalic. Hears conversational speech. No nasal drainage. NECK: Supple without lymphadenopathy. CHEST: Non-labored respirations and equal bilateral excursions. CARDIOVASCULAR: Palpable 2+ radial pulses. ABDOMEN: Right groin wound with skin necrosis. Follow odor MUSCULOSKELETAL: No clubbing or cyanosis. NEUROLOGIC: No focal or lateralizing signs. Cranial nerves II through XII grossly intact. PSYCH: Appropriate affect. Alert and oriented to person, place and time. SKIN: Well perfused. Good skin turgor. ASSESSMENT: 1. Right groin necrotic wound 2. Panniculitis 3. Morbid obesity PLAN: -Patient scheduled for open right groin debridement with Dr. Nolasco tomorrow, 05/30/2022 -Keep patient nothing by mouth after midnight -Continue supportive care -Continue antibiotics Physician Sheriffs note has been reviewed by physician. Signing provider agrees with the documented findings, assessment, and plan of care. CHIEF COMPLAINT: Right groin infection HISTORY OF PRESENT ILLNESS: The patient is a 61 year old female with complicated right groin wound ongoing for over 5+ months. She reports her right groin wound developed after radiation to the pelvis for uterine cancer. Patient has recent history of being hospitalized 2 weeks ago for new from stroke. During hospitalization, patient was seen by infectious disease with noted right groin wound. General surgery was consulted. Patient was scheduled for surgery however canceled due to new onset atrial fibrillation. Patient's been seen by cardiology with antiarrhythmic medications. REVIEW OF ORGAN SYSTEMS: No fevers or chills. No chest pain. No nausea or vomiting. PHYSICAL EXAM: VITALS: Reviewed CONSTITUTIONAL: Well developed and in no acute distress. EYES: Conjuctivae without sclera icterus. Extraocular movements grossly intact. HEAD, EARS, NOSE, THROAT: Moist buccal mucosa. Head is atraumatic, normocephalic. Hears conversational speech. No nasal drainage. RESPIRATORY: Non-labored respirations and equal bilateral excursions. No gross wheezes. CARDIOVASCULAR: Palpable 2+ radial pulses. ABDOMEN: Right groin wound 20 cm x 10 cm with skin necrosis and foul odor. Moderate pannus over 50+ pounds MUSCULOSKELETAL: No clubbing cyanosis. SKIN: Warm and well perfused with good skin turgor. NEUROLOGIC: Cranial nerves II through XII grossly intact. No focal or lateralizing signs. PSYCH: Appropriate affect. Alert and oriented to person, place and time. Displays appropriate insight. CLINCAL LABS: Reviewed. WBC within normal limits. ASSESSMENT: 1. Right groin necrotic wound 2. Panniculitis 3. Morbid obesity 4. New-onset atrial fibrillation PLAN: 1. Recommend high protein diet with multivitaminsdue to pre-existing poor appetite. 2. Continue antibiotics per infectious disease management 3. Anticipated debridement with wound VAC placement was described to the patient 4. Will order CBC and CMP. Objective - Vital Signs Vital signs: Vital Signs Temp 97.9 F 05/29/22 11:01 Pulse 64 05/29/22 11:01 Resp 18 05/29/22 11:01 BP 113/67 05/29/22 11:01 Pulse Ox 97 05/29/22 11:01 FiO2 Intake & Output 05/28/22 05/29/22 05/29/22 18:59 06:59 18:59 Intake Total 592 520 Balance 592 520 Intake: Oral 592 520 Other: Voiding Method Diaper Diaper Diaper Incontinent Incontinent Incontinent # Voids 1 3 1 # Bowel Movements 2 1 - Labs CBC & Chem 7: 06/01/22 08:08 06/01/22 08:08 Labs: Abnormal Lab Results - Last 24 Hours (Table) 05/28/22 05/28/22 05/29/22 Range/Units 17:33 20:30 07:02 POC Glucose (mg/dL) 129 H 147 H 154 H (70-110) mg/dL 05/29/22 Range/Units 11:01 POC Glucose (mg/dL) 189 H (70-110) mg/dL Microbiology - Last 24 Hours (Table) 05/25/22 14:29 Blood Culture - Preliminary Blood No Growth after 72 hours 05/25/22 14:29 Blood Culture - Preliminary Blood No Growth after 72 hours
--- NOTE | 2022-05-29 14:18 | P.PN ---
Progress Note - Text Progress Note Date: 05/29/22 Chief Complaint: wounds This is a pleasant 61-year-old patient, follows with Dr. Smooth Bob. Chronic stable medical conditions include diabetes, GERD, essential hypertension, hypothyroid. Chronic low back pain. Ovarian cancer treatment for chemo and radiation treatment. Patient at baseline uses a walker and a cane. Was recently in the hospital from May 19 through May 24. Patient presented to ER with some right foot numbness. Patient was dysarthric. Stroke found in the left coronary radiata on the posterior aspect of left frontal lobe. Patient was seen by speech. Was starting a diet. Patient in September 2021 was having significant vaginal bleeding. 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 No metastatic disease. She was not felt to be surgical candidate and was to receive 3 cycles of carboplatin/Taxol followed by radiation and 3 additional cycles of the above. She completed radiation on 03/14/2022. Started back on the carbotaxol April 03 and was status post cycle 6 day 1 on May 16. Patient during this admission was started on eliquis with the decision if the patient was to bleed then eliquis be discontinued. Yesterday the patient was noted to have more perianal wounds. Was being followed by wound care. Was evaluated by Taye towards was stable and could be followed up outpatient with Dr. stout who the patient knows from before. Patient was sent in from the [facility] today for worsening of the wounds. Area of eschar was present. Some drainage. odor to it. No fever and chills. Appetite fair. May 26: Patient is IV Zosyn and vancomycin. Consultation to ID and surgery. Significant order. Oral intake fair. Discussed with patient. Will need possible debridement. May 27: Seen by surgery. Pending debridement wound VAC, by Dr. Kasper. On antibiotics. Oral intake fair. May 28: Atrial fibrillation uncontrolled. 130s. Telemetry. Cardiology consulted. Pending debridement this afternoon. Digoxin loading done by cardiology. Nothing by mouth for procedure. May 29: Atrial fibrillation rate remains above 100. Patient getting digoxin, Coreg, Cardizem CD. Also IV meropenem and IV vancomycin. Debridement postponed because of atrial fibrillation. Spoke to the nurse patient be moved cardiology floor. Active Medications Acetaminophen (Acetaminophen Tab 325 Mg Tab) 650 mg PO Q6HR PRN PRN Reason: Mild Pain or Fever > 100.5 Hydrocodone Bitart/Acetaminophen (Hydrocodone/Apap 7.5-325mg 1 Each Tab) 1 each PO Q6HR PRN PRN Reason: Pain Last Admin: 05/29/22 11:39 Dose: 1 each Atorvastatin Calcium (Atorvastatin 40 Mg Tab) 40 mg PO HS COUNT INCLUDES THE [facility] Last Admin: 05/28/22 21:21 Dose: 40 mg Calcium Carbonate/Glycine (Calcium Carbonate 500 Mg Chewable) 1,000 mg PO Q4HR PRN PRN Reason: Dyspepsia Carvedilol (Carvedilol 12.5 Mg Tab) 25 mg PO BID-W/MEALS COUNT INCLUDES THE [facility] Last Admin: 05/29/22 08:10 Dose: 25 mg Digoxin (Digoxin 250 Mcg Tab) 250 mcg PO DAILY COUNT INCLUDES THE [facility] Last Admin: 05/29/22 08:10 Dose: 250 mcg Diltiazem HCl (Diltiazem Cd 180 Mg Cap.Er.24h) 180 mg PO DAILY COUNT INCLUDES THE [facility] Last Admin: 05/29/22 08:10 Dose: 180 mg Sodium Chloride (Saline 0.9%) 1,000 mls @ 50 mls/hr IV .Q20H COUNT INCLUDES THE [facility] Last Admin: 05/29/22 08:10 Dose: 50 mls/hr Vancomycin HCl 2,000 mg/ (Sodium Chloride) 500 mls @ 167 mls/hr IVPB Q16H COUNT INCLUDES THE [facility] Last Admin: 05/29/22 02:23 Dose: 167 mls/hr Meropenem 1 gm/ Sodium (Chloride) 100 mls @ 33.3 mls/hr IVPB Q8HR COUNT INCLUDES THE [facility]; Protocol Last Admin: 05/29/22 08:09 Dose: 33.3 mls/hr Insulin Aspart (Insulin Aspart (Novolog) 100 Unit/Ml Vial) 5 unit SQ ACHS COUNT INCLUDES THE [facility] Last Admin: 05/29/22 13:41 Dose: 5 unit Insulin Aspart (Insulin Aspart (Novolog) 100 Unit/Ml Vial) 0 unit SQ AC-TID COUNT INCLUDES THE [facility]; Protocol Last Admin: 05/29/22 13:41 Dose: 3 unit Lactulose (Lactulose 20 Gm/30 Ml Cup) 20 gm PO DAILY PRN PRN Reason: Constipation Levothyroxine Sodium (Levothyroxine 100 Mcg Tab) 200 mcg PO DAILY@0630 COUNT INCLUDES THE [facility] Last Admin: 05/29/22 05:23 Dose: 200 mcg Lorazepam (Lorazepam 0.5 Mg Tab) 0.5 mg PO Q6HR PRN PRN Reason: Anxiety Metformin HCl (Metformin 500 Mg Tab) 500 mg PO TID-W/MEALS COUNT INCLUDES THE [facility] Last Admin: 05/29/22 13:42 Dose: 500 mg Morphine Sulfate (Morphine Sulfate 2 Mg/Ml Syringe) 1 mg IVP Q6HR PRN PRN Reason: Pain/Discomfort Multivitamins (Multivitamins, Thera 1 Each Tab) 1 each PO DAILY COUNT INCLUDES THE [facility] Last Admin: 05/29/22 08:10 Dose: 1 each Naloxone HCl (Naloxone 0.4 Mg/Ml 1 Ml Vial) 0.2 mg IV Q2M PRN PRN Reason: Opioid Reversal Nitroglycerin (Nitroglycerin Sl Tabs 0.4 Mg Tab) 0.4 mg SUBLINGUAL Q5M PRN PRN Reason: Chest Pain Ondansetron HCl (Ondansetron 4 Mg/2 Ml Vial) 4 mg IVP Q8HR PRN PRN Reason: Nausea And Vomiting Oxybutynin Chloride (Oxybutynin 10 Mg Tab.Er.24) 10 mg PO DAILY COUNT INCLUDES THE [facility] Last Admin: 05/29/22 08:10 Dose: 10 mg Pantoprazole Sodium (Pantoprazole 40 Mg/10 Ml Vial) 40 mg IV DAILY COUNT INCLUDES THE [facility] Last Admin: 05/29/22 08:10 Dose: 40 mg Temazepam (Temazepam 15 Mg Cap) 15 mg PO HS PRN PRN Reason: Insomnia Past medical history to include: Atrial fibrillation, diabetes, GERD, hypertension, hypothyroid, ovarian cancer with chemo and radiation treatment. Depression. Social history: Was discharged to rehab yesterday. Does use a walker and cane. Patient started smoking as a teenager and stopped in 1994. No alcohol. Family history: Father of lung cancer Physical examination: VITAL SIGNS: 98, 110, 18, 129.71, 97% room air GENERAL: laying in bed awake. Tired EYES: Pupils equal. Conjunctiva normal. HEENT: External appearance of nose and ears normal, oral cavity grossly normal. NECK: JVD unable to assess; masses not palpable. HEART: Heart sounds irregular; no edema. LUNGS: Respiratory rate normal; distant breath sound. ABDOMEN: Soft, nontender, liver spleen not palpable, no masses palpable. Perianal wounds C wound care notes. PSYCH: Alert and oriented x3; mood and affect a bit low MUSCULOSKELETAL:No Clubbing/cyanosis;muscles-grossly intact, evidence of OA DERMATOLOGICAL:/ wounds. Strong order. More detailed in nursing notes NEUROLOGICAL: Slurred speech . Power and sensation grossly intact. Mouth slightly pulled to the left INVESTIGATIONS, reviewed in the clinical context: May 27: White count 10.7 hemoglobin 10.5 potassium 4.7 creatinine 0.9 to White count 9.4 hemoglobin 11 platelets 356 potassium 5.2 creatinine 0.9 EKG tracing personally reviewed by me-atrial fibrillation. Rate 87 From recent admission: MRI brain without contrast: Acute/subacute CVA of the left coronary radiata on the posterior aspect of the left frontal lobe. Nonspecific white matter changes. CT brain: Mild atrophic CT angiography of the brain: Nonspecific 2-D echocardiogram: EF 55-60%, severe LVH Assessment and plan: --Multiple superficial wounds in the area of the groin and perineal area. Including drainage and anaerobic odor. Large necrotic wound.: Slow to respond Pending debridement and wound VAC by Dr. Kasper. IV meropenem and vancomycin. Eliquis held -Acute stroke in the left johnston radiata on the posterior aspect of the left frontal lobe. suspected to be embolic from underlying paroxysmal atrial fibrillation, on 05/18/2022 Eliquis. No aspirin. -Paroxysmal atrial fibrillation: Uncontrolled eliquis-held. Coreg 25 mg twice a day. Cardizem CD 180 mg a day. Digoxin -Acute dysphagia from underlying stroke : Chopped diet -Morbid obesity BMI 48.9 Weight loss measures -GERD Prilosec 20 mg -Hypertensive heart disease Coreg 25 mg twice a day. Cardizem CD 180 mg a day. -Essential hypertension Coreg 25 mg twice a day, Cardizem LA 180 mg a day -Chronic urinary stress incontinence Ditropan XL 10 mg a day -Hypothyroid Synthroid 200 g a day -Chronic gait dysfunction Uses a cane/walker at baseline IV meropenem and IV vancomycin.. I&D postpone till tomorrow including silverio ridement. Patient be moved to the cardiology floor. Continue current medications. Discussed with patient.
[2022-05-29 16:18] LABS: Glucose,Whole Blood 155 mg/dL (70-110)
[2022-05-29 20:32] LABS: Glucose,Whole Blood 131 mg/dL (70-110)
[2022-05-29] MEDS: ATORVASTATIN 40 MG TAB PO SCH (20:41)
[2022-05-30] MEDS: LEVOTHYROXINE 100 MCG TAB PO SCH (06:19)
[2022-05-30] MEDS: carvediloL 12.5 MG TAB PO SCH ×2 (06:19→18:00)
[2022-05-30] MEDS: metFORMIN 500 MG TAB PO SCH ×3 (06:19→18:00)
[2022-05-30 08:02] LABS: Anisocytosis Slight; Basophils # (A) 0.1 k/uL (0-0.2); Basophils % (A) 0 %; Eosinophils # (A) 0.1 k/uL (0-0.7); Eosinophils % (A) 1 %; HGB 10.2 gm/dL (11.4-16.0); Hypochromasia Marked; Lymphocytes # (A) 0.3 k/uL (1.0-4.8); Lymphocytes % (A) 3 %; MCH 29.8 pg (25.0-35.0); MCHC 30.9 g/dL (31.0-37.0); MCV 96.6 fL (80.0-100.0); Mean Platelet Volume 8.5; Monocytes # (A) 0.6 k/uL (0-1.0); Monocytes % (A) 5 %; Neutrophils # (A) 9.3 k/uL (1.3-7.7); Neutrophils % (A) 89 %; Platelet Count 385 k/uL (150-450); RBC 3.41 m/uL (3.80-5.40); RDW 16.4 % (11.5-15.5); WBC 10.5 k/uL (3.8-10.6)
[2022-05-30 08:27] LABS: African American GFR (CKD) >90 (>60 ml/min/1.73 sqM); Anion Gap 3 mmol/L; Blood Urea Nitrogen 14 mg/dL (7-17); Calcium 7.7 mg/dL (8.4-10.2); Carbon Dioxide 22 mmol/L (22-30); Chloride 108 mmol/L (98-107); Glucose 147 mg/dL (74-99); Non-African American GFR(CKD) 83 (>60 ml/min/1.73 sqM); Sodium 133 mmol/L (137-145)
[2022-05-30] MEDS: INSULIN ASPART (NovoLOG) 100 UNIT/ML VIAL SQ SCH ×7 (09:37→20:19)
[2022-05-30] MEDS: DILTIAZEM CD 180 MG CAP.ER.24H PO SCH (10:06)
[2022-05-30] MEDS: MULTIVITAMINS, THERA 1 EACH TAB PO SCH (10:06)
[2022-05-30] MEDS: PANTOPRAZOLE 40 MG/10 ML VIAL IV SCH (10:07)
[2022-05-30] MEDS: MEROPENEM 1 GM in SODIUM CHLORIDE 0.9% 100 ML IVPB SCH ×3 (10:07→23:14)
[2022-05-30] MEDS: DIGOXIN 250 MCG TAB PO SCH (10:07)
[2022-05-30] MEDS: OXYBUTYNIN 10 MG TAB.ER.24 PO SCH (10:07)
[2022-05-30] MEDS: HYDROcodone/APAP 7.5-325MG 1 EACH TAB PO PRN ×2 (10:26→20:18)
[2022-05-30] MEDS: VANCOMYCIN 2,000 MG in SODIUM CHLORIDE 0.9% 500 ML 500 ML IVPB SCH (10:27)
[2022-05-30 11:45] LABS: Glucose,Whole Blood 179 mg/dL (70-110)
--- NOTE | 2022-05-30 12:38 | P.PN ---
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 We have been asked to the patient consultation for atrial fibrillation with RVR and cardiac clearance. Patient presented to the ER on 05/24/2022 secondary to worsening wounds and infection. Patient followed by wound care outpatient and was found to have more perineal wounds. Infectious disease following patient and patient on IV antibiotics, meropenem. Patient also evaluated by surgery and recommending debridement. Patient seen and examined at bedside, no acute distress. She denies any shortness of breath, palpitations, chest pain, lightheadedness or dizziness. She denies any fever, chills. Patient was recently admitted on 05/18/20 found to have an Acute stroke in the left johnston radiata on the posterior aspect of the left frontal lobe. Cardiology saw patient for atrial fibrillation and patient was placed on Eliquis anticoagulation. DIAGNOSTICS: Echocardiogram 05/19/2022 revealed EF 5560%, severe left ventricular hypertrophy, trace mitral and trace tricuspid regurgitation 05/29/2022 Patient seen and examined at bedside, sitting at the edge of the pad working with physical therapy. No symptoms of chest pain or shortness of breath or palpitations. She denies any lightheadedness or dizziness. She was started on digoxin yesterday. Telemetry reviewed patient is in atrial fibrillation with better controlled heart rates. HR 90s. PHYSICAL EXAM: VITAL SIGNS: Reviewed. GENERAL: Well-developed in no acute distress. NECK: Supple. No JVD or thyromegaly LUNGS: Respirations even and unlabored. Lungs essentially clear to auscultation bilaterally. HEART: Irregular rate and rhythm. S1 and S2 heard. EXTREMITIES: Normal range of motion. No clubbing or cyanosis. Peripheral pulses intact. 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 Resume postoperatively. Continue telemetry monitoring Patient scheduled for wound debridement tomorrow with Dr. Nolasco Further recommendations pending patient's course Nurse practitioner note has been reviewed by physician. Signing provider agrees with the documented findings, assessment, and plan of care. Objective - Vital Signs Vital signs: Vital Signs Temp 96.7 F L 05/30/22 12:32 Pulse 75 05/30/22 12:32 Resp 18 05/30/22 12:32 BP 133/60 05/30/22 12:32 Pulse Ox 95 05/30/22 12:32 FiO2 Intake & Output 05/29/22 05/30/22 05/30/22 18:59 06:59 18:59 Intake Total 180 720 Balance 180 720 Intake: Intake, IV Titration 600 Amount Meropenem 1 gm In Sodium 100 Chloride 0.9% 100 ml @ 33 .3 mls/hr IVPB Q8HR [facility] Rx#:[id number] Vancomycin 2,000 mg In 500 Sodium Chloride 0.9% 500 ml 500 ml @ 167 mls/hr IVPB Q16H [facility] Rx#: [id number] Oral 180 120 Other: Voiding Method Diaper Diaper Diaper Incontinent # Voids 2 2 # Bowel Movements 1 - Labs CBC & Chem 7: 05/30/22 07:20 05/30/22 07:20 Labs: Abnormal Lab Results - Last 24 Hours (Table) 05/29/22 05/29/22 05/30/22 Range/Units 16:17 20:08 07:20 RBC 3.41 L (3.80-5.40) m/uL Hgb 10.2 L (11.4-16.0) gm/dL Hct 33.0 L (34.0-46.0) % MCHC 30.9 L (31.0-37.0) g/dL RDW 16.4 H (11.5-15.5) % Neutrophils # 9.3 H (1.3-7.7) k/uL Lymphocytes # 0.3 L (1.0-4.8) k/uL Sodium (137-145) mmol/L Chloride (98-107) mmol/L Glucose (74-99) mg/dL POC Glucose (mg/dL) 155 H 131 H (70-110) mg/dL Calcium (8.4-10.2) mg/dL 05/30/22 05/30/22 Range/Units 07:20 11:41 RBC (3.80-5.40) m/uL Hgb (11.4-16.0) gm/dL Hct (34.0-46.0) % MCHC (31.0-37.0) g/dL RDW (11.5-15.5) % Neutrophils # (1.3-7.7) k/uL Lymphocytes # (1.0-4.8) k/uL Sodium 133 L (137-145) mmol/L Chloride 108 H (98-107) mmol/L Glucose 147 H (74-99) mg/dL POC Glucose (mg/dL) 179 H (70-110) mg/dL Calcium 7.7 L (8.4-10.2) mg/dL Microbiology - Last 24 Hours (Table) 05/25/22 14:29 Blood Culture - Preliminary Blood No Growth after 96 hours 05/25/22 14:29 Blood Culture - Preliminary Blood No Growth after 96 hours
--- NOTE | 2022-05-30 13:16 | P.PN ---
Subjective Progress Note Date: 05/30/22 CHIEF COMPLAINT: Right groin infection HISTORY OF PRESENT ILLNESS: Surgical service following regards to complicated right groin wound. Patient is currently on IV antibiotics. Surgery was initially cancelled due to A. fib with RVR. Patient followed closely by cardiology. Patient's heart rate is better controlled. Per cardiology there is no absolute contraindication for surgery. Patient lying in bed comfortably. Denies any nausea or vomiting. Pain controlled. Afebrile. WBC 10.5 HGB 10.2 plt 385 Na 133 k 5.0 Cr 0.77 PHYSICAL EXAM: VITAL SIGNS: Reviewed GENERAL: Well-developed in no acute distress. HEENT: No sclera icterus. Extraocular movements grossly intact. Moist buccal mucosa. Head is atraumatic, normocephalic. Hears conversational speech. No nasal drainage. NECK: Supple without lymphadenopathy. CHEST: Non-labored respirations and equal bilateral excursions. CARDIOVASCULAR: Palpable 2+ radial pulses. ABDOMEN: Right groin wound with skin necrosis. Follow odor MUSCULOSKELETAL: No clubbing or cyanosis. NEUROLOGIC: No focal or lateralizing signs. Cranial nerves II through XII grossly intact. PSYCH: Appropriate affect. Alert and oriented to person, place and time. SKIN: Well perfused. Good skin turgor. ASSESSMENT: 1. Right groin necrotic wound 2. Panniculitis 3. Morbid obesity PLAN: -Patient scheduled for open right groin debridement with Dr. Nolasco tomorrow, 05/31/22 -Keep patient nothing by mouth after midnight -Continue supportive care -Continue antibiotics Physician Recruit Instructor note has been reviewed by physician. Signing provider agrees with the documented findings, assessment, and plan of care. CHIEF COMPLAINT: Right groin infection HISTORY OF PRESENT ILLNESS: The patient is a 61 year old female with complicated right groin with necrosis. Patient has multidrug-resistant organism grown from the right groin. No reports of fevers or chills. She is tolerating diet. Patient's heart rate within control with antiarrhythmic. She is off blood thinners.. REVIEW OF ORGAN SYSTEMS: No fevers or chills. No chest pain. No nausea or vomiting. PHYSICAL EXAM: VITALS: Reviewed CONSTITUTIONAL: Well developed and in no acute distress. EYES: Conjuctivae without sclera icterus. Extraocular movements grossly intact. HEAD, EARS, NOSE, THROAT: Moist buccal mucosa. Head is atraumatic, normocephalic. Hears conversational speech. No nasal drainage. RESPIRATORY: Non-labored respirations and equal bilateral excursions. No gross wheezes. CARDIOVASCULAR: Palpable 2+ radial pulses. ABDOMEN: Right groin wound 20 cm x 10 cm with skin necrosis and foul odor. Moderate pannus over 50+ pounds MUSCULOSKELETAL: No clubbing cyanosis. SKIN: Warm and well perfused with good skin turgor. NEUROLOGIC: Cranial nerves II through XII grossly intact. No focal or lateralizing signs. PSYCH: Appropriate affect. Alert and oriented to person, place and time. Displays appropriate insight. CLINCAL LABS: Reviewed. WBC within normal limits. ASSESSMENT: 1. Right groin necrotic wound 2. Panniculitis 3. Morbid obesity 4. New-onset atrial fibrillation PLAN: 1. Review of surgical management includes excisional debridement and placement of wound VAC. 2. At this time, continue to augment nutrition with high protein 75 grams and multivitamin Objective - Vital Signs Vital signs: Vital Signs Temp 96.7 F L 05/30/22 12:32 Pulse 75 05/30/22 12:32 Resp 18 05/30/22 12:32 BP 133/60 05/30/22 12:32 Pulse Ox 95 05/30/22 12:32 FiO2 Intake & Output 05/29/22 05/30/22 05/30/22 18:59 06:59 18:59 Intake Total 180 720 Balance 180 720 Intake: Intake, IV Titration 600 Amount Meropenem 1 gm In Sodium 100 Chloride 0.9% 100 ml @ 33 .3 mls/hr IVPB Q8HR [facility] Rx#:[id number] Vancomycin 2,000 mg In 500 Sodium Chloride 0.9% 500 ml 500 ml @ 167 mls/hr IVPB Q16H [facility] Rx#: [id number] Oral 180 120 Other: Voiding Method Diaper Diaper Diaper Incontinent # Voids 2 2 # Bowel Movements 1 - Labs CBC & Chem 7: 06/01/22 08:08 06/01/22 08:08 Labs: Abnormal Lab Results - Last 24 Hours (Table) 05/29/22 05/29/22 05/30/22 Range/Units 16:17 20:08 07:20 RBC 3.41 L (3.80-5.40) m/uL Hgb 10.2 L (11.4-16.0) gm/dL Hct 33.0 L (34.0-46.0) % MCHC 30.9 L (31.0-37.0) g/dL RDW 16.4 H (11.5-15.5) % Neutrophils # 9.3 H (1.3-7.7) k/uL Lymphocytes # 0.3 L (1.0-4.8) k/uL Sodium (137-145) mmol/L Chloride (98-107) mmol/L Glucose (74-99) mg/dL POC Glucose (mg/dL) 155 H 131 H (70-110) mg/dL Calcium (8.4-10.2) mg/dL 05/30/22 05/30/22 Range/Units 07:20 11:41 RBC (3.80-5.40) m/uL Hgb (11.4-16.0) gm/dL Hct (34.0-46.0) % MCHC (31.0-37.0) g/dL RDW (11.5-15.5) % Neutrophils # (1.3-7.7) k/uL Lymphocytes # (1.0-4.8) k/uL Sodium 133 L (137-145) mmol/L Chloride 108 H (98-107) mmol/L Glucose 147 H (74-99) mg/dL POC Glucose (mg/dL) 179 H (70-110) mg/dL Calcium 7.7 L (8.4-10.2) mg/dL Microbiology - Last 24 Hours (Table) 05/25/22 14:29 Blood Culture - Preliminary Blood No Growth after 96 hours 05/25/22 14:29 Blood Culture - Preliminary Blood No Growth after 96 hours
[2022-05-30 17:02] LABS: Glucose,Whole Blood 134 mg/dL (70-110)
--- NOTE | 2022-05-30 17:21 | P.PN ---
Progress Note - Text Progress Note Date: 05/30/22 Chief Complaint: wounds This is a pleasant 61-year-old patient, follows with Dr. Smooth Bob. Chronic stable medical conditions include diabetes, GERD, essential hypertension, hypothyroid. Chronic low back pain. Ovarian cancer treatment for chemo and radiation treatment. Patient at baseline uses a walker and a cane. Was recently in the hospital from May 19 through May 24. Patient presented to ER with some right foot numbness. Patient was dysarthric. Stroke found in the left coronary radiata on the posterior aspect of left frontal lobe. Patient was seen by speech. Was starting a diet. Patient in September 2021 was having significant vaginal bleeding. 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 No metastatic disease. She was not felt to be surgical candidate and was to receive 3 cycles of carboplatin/Taxol followed by radiation and 3 additional cycles of the above. She completed radiation on 03/14/2022. Started back on the carbotaxol April 03 and was status post cycle 6 day 1 on May 16. Patient during this admission was started on eliquis with the decision if the patient was to bleed then eliquis be discontinued. Yesterday the patient was noted to have more perianal wounds. Was being followed by wound care. Was evaluated by Taye towards was stable and could be followed up outpatient with Dr. stout who the patient knows from before. Patient was sent in from the ECF today for worsening of the wounds. Area of eschar was present. Some drainage. odor to it. No fever and chills. Appetite fair. May 26: Patient is IV Zosyn and vancomycin. Consultation to ID and surgery. Significant order. Oral intake fair. Discussed with patient. Will need possible debridement. May 27: Seen by surgery. Pending debridement wound VAC, by Dr. Kasper. On antibiotics. Oral intake fair. May 28: Atrial fibrillation uncontrolled. 130s. Telemetry. Cardiology consulted. Pending debridement this afternoon. Digoxin loading done by cardiology. Nothing by mouth for procedure. May 29: Atrial fibrillation rate remains above 100. Patient getting digoxin, Coreg, Cardizem CD. Also IV meropenem and IV vancomycin. Debridement postponed because of atrial fibrillation. Spoke to the nurse patient be moved cardiology floor. May 30: Atrial fibrillation rate controlled. Eliquis on hold. Pending debridement tomorrow. Up in a chair. Eating some. IV antibiotics Active Medications Acetaminophen (Acetaminophen Tab 325 Mg Tab) 650 mg PO Q6HR PRN PRN Reason: Mild Pain or Fever > 100.5 Hydrocodone Bitart/Acetaminophen (Hydrocodone/Apap 7.5-325mg 1 Each Tab) 1 each PO Q6HR PRN PRN Reason: Pain Last Admin: 05/30/22 10:26 Dose: 1 each Atorvastatin Calcium (Atorvastatin 40 Mg Tab) 40 mg PO HS [facility] Last Admin: 05/29/22 20:41 Dose: 40 mg Calcium Carbonate/Glycine (Calcium Carbonate 500 Mg Chewable) 1,000 mg PO Q4HR PRN PRN Reason: Dyspepsia Carvedilol (Carvedilol 12.5 Mg Tab) 25 mg PO BID-W/MEALS [facility] Last Admin: 05/30/22 06:19 Dose: 25 mg Digoxin (Digoxin 250 Mcg Tab) 250 mcg PO DAILY [facility] Last Admin: 05/30/22 10:07 Dose: 250 mcg Diltiazem HCl (Diltiazem Cd 180 Mg Cap.Er.24h) 180 mg PO DAILY [facility] Last Admin: 05/30/22 10:06 Dose: 180 mg Sodium Chloride (Saline 0.9%) 1,000 mls @ 50 mls/hr IV .Q20H [facility] Last Admin: 05/29/22 08:10 Dose: 50 mls/hr Vancomycin HCl 2,000 mg/ (Sodium Chloride) 500 mls @ 167 mls/hr IVPB Q16H [facility] Last Admin: 05/30/22 10:27 Dose: 167 mls/hr Meropenem 1 gm/ Sodium (Chloride) 100 mls @ 33.3 mls/hr IVPB Q8HR [facility]; Protocol Last Admin: 05/30/22 15:12 Dose: 33.3 mls/hr Insulin Aspart (Insulin Aspart (Novolog) 100 Unit/Ml Vial) 5 unit SQ ACHS [facility] Last Admin: 05/30/22 12:25 Dose: 5 unit Insulin Aspart (Insulin Aspart (Novolog) 100 Unit/Ml Vial) 0 unit SQ AC-TID [facility]; Protocol Last Admin: 05/30/22 12:26 Dose: 3 unit Lactulose (Lactulose 20 Gm/30 Ml Cup) 20 gm PO DAILY PRN PRN Reason: Constipation Levothyroxine Sodium (Levothyroxine 100 Mcg Tab) 200 mcg PO DAILY@0630 [facility] Last Admin: 05/30/22 06:19 Dose: 200 mcg Lorazepam (Lorazepam 0.5 Mg Tab) 0.5 mg PO Q6HR PRN PRN Reason: Anxiety Metformin HCl (Metformin 500 Mg Tab) 500 mg PO TID-W/MEALS [facility] Last Admin: 05/30/22 12:26 Dose: 500 mg Miscellaneous Information (Vancomycin Trough Due 1 Each Misc) 0 each MISCELLANE DIRECTED ONE Stop: 05/31/22 00:01 Morphine Sulfate (Morphine Sulfate 2 Mg/Ml Syringe) 1 mg IVP Q6HR PRN PRN Reason: Pain/Discomfort Multivitamins (Multivitamins, Thera 1 Each Tab) 1 each PO DAILY [facility] Last Admin: 05/30/22 10:06 Dose: 1 each Naloxone HCl (Naloxone 0.4 Mg/Ml 1 Ml Vial) 0.2 mg IV Q2M PRN PRN Reason: Opioid Reversal Nitroglycerin (Nitroglycerin Sl Tabs 0.4 Mg Tab) 0.4 mg SUBLINGUAL Q5M PRN PRN Reason: Chest Pain Ondansetron HCl (Ondansetron 4 Mg/2 Ml Vial) 4 mg IVP Q8HR PRN PRN Reason: Nausea And Vomiting Oxybutynin Chloride (Oxybutynin 10 Mg Tab.Er.24) 10 mg PO DAILY [facility] Last Admin: 05/30/22 10:07 Dose: 10 mg Pantoprazole Sodium (Pantoprazole 40 Mg/10 Ml Vial) 40 mg IV DAILY [facility] Last Admin: 05/30/22 10:07 Dose: 40 mg Temazepam (Temazepam 15 Mg Cap) 15 mg PO HS PRN PRN Reason: Insomnia Past medical history to include: Atrial fibrillation, diabetes, GERD, hypertension, hypothyroid, ovarian cancer with chemo and radiation treatment. Depression. Social history: Was discharged to rehab yesterday. Does use a walker and cane. Patient started smoking as a teenager and stopped in 1994. No alcohol. Family history: Father of lung cancer Physical examination: VITAL SIGNS: 98.4, 75, 18, 122.64, 97% on room air GENERAL: Up in a chair Tired EYES: Pupils equal. Conjunctiva normal. HEENT: External appearance of nose and ears normal, oral cavity grossly normal. NECK: JVD unable to assess; masses not palpable. HEART: Heart sounds irregular; no edema. LUNGS: Respiratory rate normal; distant breath sound. ABDOMEN: Soft, nontender, liver spleen not palpable, no masses palpable. Perianal wounds C wound care notes. PSYCH: Alert and oriented x3; mood and affect a bit low MUSCULOSKELETAL:No Clubbing/cyanosis;muscles-grossly intact, evidence of OA DERMATOLOGICAL:/ wounds. Strong order. More detailed in nursing notes NEUROLOGICAL: Slurred speech . Power and sensation grossly intact. Mouth slightly pulled to the left INVESTIGATIONS, reviewed in the clinical context: May 30: White count 10.5 hemoglobin 10.2 potassium 5 creatinine 0.77 May 27: White count 10.7 hemoglobin 10.5 potassium 4.7 creatinine 0.9 to White count 9.4 hemoglobin 11 platelets 356 potassium 5.2 creatinine 0.9 EKG tracing personally reviewed by me-atrial fibrillation. Rate 87 From recent admission: MRI brain without contrast: Acute/subacute CVA of the left coronary radiata on the posterior aspect of the left frontal lobe. Nonspecific white matter changes. CT brain: Mild atrophic CT angiography of the brain: Nonspecific 2-D echocardiogram: EF 55-60%, severe LVH Assessment and plan: --Multiple superficial wounds in the area of the groin and perineal area. Including drainage and anaerobic odor. Large necrotic wound.: Slow to respond Pending debridement and wound VAC by Dr. Kasper. IV meropenem and vancomycin. Eliquis held -Acute stroke in the left johnston radiata on the posterior aspect of the left frontal lobe. suspected to be embolic from underlying paroxysmal atrial fibrillation, on 05/18/2022 Eliquis. No aspirin. -Paroxysmal atrial fibrillation: Rate controlled eliquis-held. Coreg 25 mg twice a day. Cardizem CD 180 mg a day. Digoxin -Acute dysphagia from underlying stroke : Chopped diet -Morbid obesity BMI 48.9 Weight loss measures -GERD Prilosec 20 mg -Hypertensive heart disease Coreg 25 mg twice a day. Cardizem CD 180 mg a day. -Essential hypertension Coreg 25 mg twice a day, Cardizem LA 180 mg a day -Chronic urinary stress incontinence Ditropan XL 10 mg a day -Hypothyroid Synthroid 200 g a day -Chronic gait dysfunction Uses a cane/walker at baseline IV meropenem and IV vancomycin.. Pending tomorrow including debridement. A. fib controlled. Discussed with patient.
[2022-05-30] MEDS: SODIUM CHLORIDE 0.9% 1,000 ML IV SCH (19:53)
[2022-05-30 20:13] LABS: Glucose,Whole Blood 132 mg/dL (70-110)
[2022-05-30] MEDS: ATORVASTATIN 40 MG TAB PO SCH (20:18)
[2022-05-31] MEDS ORDERED: VANCOMYCIN TROUGH DUE 1 EACH MISC MISCELLANE ONE
[2022-05-31] MEDS: VANCOMYCIN 2,000 MG in SODIUM CHLORIDE 0.9% 500 ML 500 ML IVPB SCH (01:26)
[2022-05-31] MEDS: metFORMIN 500 MG TAB PO SCH ×3 (06:27→21:23)
[2022-05-31] MEDS: carvediloL 12.5 MG TAB PO SCH ×2 (06:28→21:23)
[2022-05-31] MEDS: LEVOTHYROXINE 100 MCG TAB PO SCH (06:28)
[2022-05-31] MEDS: SODIUM CHLORIDE 0.9% 1,000 ML IV SCH (06:29)
[2022-05-31 07:15] LABS: Glucose,Whole Blood 143 mg/dL (70-110)
--- NOTE | 2022-05-31 08:00 | P.PN ---
Subjective Progress Note Date: 05/28/22 Principal diagnosis: Right groin and abdominal pannus wound infection Patient is a 61-year-old female morbidly obese with multiple comorbidities in this patient who did have ovarian cancer s/p radiation chemotherapy with necrotic wound to the right groin and the abdominal panus. On today's evaluation that is 05/28/2022, the patient remains to be afebrile, the patient is breathing comfortably on room air, patient pain to the right groin/ lower abdominal wound area is controlled with the pain medication, patient denies chest pain or shortness of breath or cough and no diarrhea has been reported by the nursing staff Objective - Vital Signs Vital signs: Vital Signs Temp 97.9 F 05/28/22 11:40 Pulse 92 05/28/22 11:40 Resp 18 05/28/22 11:40 BP 129/83 05/28/22 11:40 Pulse Ox 97 05/28/22 11:40 FiO2 Intake & Output 05/27/22 05/28/22 05/28/22 18:59 06:59 18:59 Intake Total 0 Balance 0 Intake: Oral 0 Other: Voiding Method Diaper Diaper Diaper Incontinent Incontinent Incontinent # Voids 4 2 # Bowel Movements 1 1 - Exam GENERAL DESCRIPTION: Middle-aged female lying in bed in no distress RESPIRATORY SYSTEM: Unlabored breathing , decreased breath sounds at bases HEART: S1 S2 regular rate and rhythm , ABDOMEN: Soft , right groin with a necrotic wound surrounding redness and foul-smelling drainage EXTREMITIES: Diffuse swelling of both legs - Labs CBC & Chem 7: 05/30/22 07:20 05/30/22 07:20 Labs: Abnormal Lab Results - Last 24 Hours (Table) 05/27/22 05/27/22 05/28/22 Range/Units 17:19 21:47 06:53 POC Glucose (mg/dL) 158 H 160 H 156 H (70-110) mg/dL 05/28/22 Range/Units 11:29 POC Glucose (mg/dL) 154 H (70-110) mg/dL Microbiology - Last 24 Hours (Table) 05/25/22 14:29 Blood Culture - Preliminary Blood No Growth after 48 hours 05/25/22 14:29 Blood Culture - Preliminary Blood No Growth after 48 hours 05/25/22 14:20 Gram Stain - Final Groin Wound Culture - Final Klebsiella pneumoniae Assessment and Plan (1) Right groin wound Current Visit: Yes Status: Acute Code(s): S31.109A - UNSP OPN WND ABD WALL, UNSP Q W/O PENET PERIT CAV, INIT SNOMED Code(s): 360615270 (2) Soft tissue radionecrosis Current Visit: No Status: Acute Priority: High Code(s): L59.8 - OTH DISRD OF THE SKIN, SUBCU RELATED TO RADIATION; Y84.2 - RADIOLOG PROC/RADIOTHRPY CAUSE ABN REACT/COMPL, W/O MISADVNT SNOMED Code(s): 83354236 Plan: 1patient with extensive wound to the right groin and lower abdominal pannus with necrotic tissue foul-smelling concerning for underlying deep infection and will need to cover for both gram-positive skin brien as well as gram-negative pathogen. 2patient right groin and abdominal debridement and deep cultures and put on hold because of cardiac issues 3patient local culture has been finalized with ESBL Klebsiella, patient to continue with meropenem Vanco. till debridement and deep culture finalized Time with Patient: Less than 30
--- NOTE | 2022-05-31 08:02 | P.PN ---
Subjective Progress Note Date: 05/29/22 Principal diagnosis: Right groin and abdominal pannus wound infection Patient is a 61-year-old female morbidly obese with multiple comorbidities in this patient who did have ovarian cancer s/p radiation chemotherapy with necrotic wound to the right groin and the abdominal panus. On today's evaluation that is 05/29/2022, the patient denies any fever or chills, the patient is breathing comfortably on room air, patient denies any worsening pain to the right groin/ lower abdominal wound area , patient denies chest pain or shortness of breath or cough and no diarrhea has been reported by the nursing staff Objective - Vital Signs Vital signs: Vital Signs Temp 97.9 F 05/29/22 11:01 Pulse 64 05/29/22 11:01 Resp 18 05/29/22 11:01 BP 113/67 05/29/22 11:01 Pulse Ox 97 05/29/22 11:01 FiO2 Intake & Output 05/28/22 05/29/22 05/29/22 18:59 06:59 18:59 Intake Total 592 520 Balance 592 520 Intake: Oral 592 520 Other: Voiding Method Diaper Diaper Diaper Incontinent Incontinent Incontinent # Voids 1 3 1 # Bowel Movements 2 1 - Exam GENERAL DESCRIPTION: Middle-aged female lying in bed in no distress RESPIRATORY SYSTEM: Unlabored breathing , decreased breath sounds at bases HEART: S1 S2 regular rate and rhythm , ABDOMEN: Soft , right groin with a necrotic wound surrounding redness and foul- smelling drainage EXTREMITIES: Diffuse swelling of both legs - Labs CBC & Chem 7: 05/30/22 07:20 05/30/22 07:20 Labs: Abnormal Lab Results - Last 24 Hours (Table) 05/28/22 05/28/22 05/29/22 Range/Units 17:33 20:30 07:02 POC Glucose (mg/dL) 129 H 147 H 154 H (70-110) mg/dL 05/29/22 Range/Units 11:01 POC Glucose (mg/dL) 189 H (70-110) mg/dL Microbiology - Last 24 Hours (Table) 05/25/22 14:29 Blood Culture - Preliminary Blood No Growth after 72 hours 05/25/22 14:29 Blood Culture - Preliminary Blood No Growth after 72 hours Assessment and Plan (1) Right groin wound Current Visit: Yes Status: Acute Code(s): S31.109A - UNSP OPN WND ABD WALL, UNSP Q W/O PENET PERIT CAV, INIT SNOMED Code(s): 400980591 (2) Soft tissue radionecrosis Current Visit: No Status: Acute Priority: High Code(s): L59.8 - OTH DISRD OF THE SKIN, SUBCU RELATED TO RADIATION; Y84.2 - RADIOLOG PROC/RADIOTHRPY CAUSE ABN REACT/COMPL, W/O MISADVNT SNOMED Code(s): 26803324 Plan: 1patient with extensive wound to the right groin and lower abdominal pannus with necrotic tissue foul-smelling concerning for underlying deep infection and will need to cover for both gram-positive skin brien as well as gram-negative pathogen. 2patient right groin and abdominal debridement and deep cultures is currently on hold because of cardiac issues 3patient local culture has been finalized with ESBL Klebsiella, patient to continue with meropenem Vanco and monitor clinical course closely Time with Patient: Less than 30
--- NOTE | 2022-05-31 08:03 | P.PN ---
Subjective Progress Note Date: 05/30/22 Principal diagnosis: Right groin and abdominal pannus wound infection Patient is a 61-year-old female morbidly obese with multiple comorbidities in this patient who did have ovarian cancer s/p radiation chemotherapy with necrotic wound to the right groin and the abdominal panus. On today's evaluation that is 05/30/2022, the patient is afebrile, the patient is breathing comfortably on room air, patient pain to the right groin/ lower abdominal wound area is somewhat controlled with the pain medication she is receiving , patient denies chest pain or shortness of breath or cough and no diarrhea has been reported by the nursing staff, patient being transferred to the telemetry unit Objective - Vital Signs Vital signs: Vital Signs Temp 96.7 F L 05/30/22 12:32 Pulse 75 05/30/22 12:32 Resp 18 05/30/22 12:32 BP 133/60 05/30/22 12:32 Pulse Ox 95 05/30/22 12:32 FiO2 Intake & Output 05/29/22 05/30/22 05/30/22 18:59 06:59 18:59 Intake Total 180 720 Balance 180 720 Intake: Intake, IV Titration 600 Amount Meropenem 1 gm In Sodium 100 Chloride 0.9% 100 ml @ 33 .3 mls/hr IVPB Q8HR [facility] Rx#:[id number] Vancomycin 2,000 mg In 500 Sodium Chloride 0.9% 500 ml 500 ml @ 167 mls/hr IVPB Q16H [facility] Rx#: [id number] Oral 180 120 Other: Voiding Method Diaper Diaper Diaper Incontinent # Voids 2 2 # Bowel Movements 1 - Exam GENERAL DESCRIPTION: Middle-aged female lying in bed in no distress RESPIRATORY SYSTEM: Unlabored breathing , decreased breath sounds at bases HEART: S1 S2 regular rate and rhythm , ABDOMEN: Soft , right groin with a necrotic wound surrounding redness and foul- smelling drainage EXTREMITIES: Diffuse swelling of both legs - Labs CBC & Chem 7: 05/30/22 07:20 05/30/22 07:20 Labs: Abnormal Lab Results - Last 24 Hours (Table) 05/29/22 05/29/22 05/30/22 Range/Units 16:17 20:08 07:20 RBC 3.41 L (3.80-5.40) m/uL Hgb 10.2 L (11.4-16.0) gm/dL Hct 33.0 L (34.0-46.0) % MCHC 30.9 L (31.0-37.0) g/dL RDW 16.4 H (11.5-15.5) % Neutrophils # 9.3 H (1.3-7.7) k/uL Lymphocytes # 0.3 L (1.0-4.8) k/uL Sodium (137-145) mmol/L Chloride (98-107) mmol/L Glucose (74-99) mg/dL POC Glucose (mg/dL) 155 H 131 H (70-110) mg/dL Calcium (8.4-10.2) mg/dL 05/30/22 05/30/22 Range/Units 07:20 11:41 RBC (3.80-5.40) m/uL Hgb (11.4-16.0) gm/dL Hct (34.0-46.0) % MCHC (31.0-37.0) g/dL RDW (11.5-15.5) % Neutrophils # (1.3-7.7) k/uL Lymphocytes # (1.0-4.8) k/uL Sodium 133 L (137-145) mmol/L Chloride 108 H (98-107) mmol/L Glucose 147 H (74-99) mg/dL POC Glucose (mg/dL) 179 H (70-110) mg/dL Calcium 7.7 L (8.4-10.2) mg/dL Microbiology - Last 24 Hours (Table) 05/25/22 14:29 Blood Culture - Preliminary Blood No Growth after 96 hours 05/25/22 14:29 Blood Culture - Preliminary Blood No Growth after 96 hours Assessment and Plan (1) Right groin wound Current Visit: Yes Status: Acute Code(s): S31.109A - UNSP OPN WND ABD WALL, UNSP Q W/O PENET PERIT CAV, INIT SNOMED Code(s): 899226648 (2) Soft tissue radionecrosis Current Visit: No Status: Acute Priority: High Code(s): L59.8 - OTH DISRD OF THE SKIN, SUBCU RELATED TO RADIATION; Y84.2 - RADIOLOG PROC/RADIOTHRPY CAUSE ABN REACT/COMPL, W/O MISADVNT SNOMED Code(s): 69463487 Plan: 1patient with extensive wound to the right groin and lower abdominal pannus with necrotic tissue foul-smelling concerning for underlying deep infection and will need to cover for both gram-positive skin brien as well as gram-negative pathogen. 2patient right groin and abdominal debridement and deep cultures is currently on hold because of cardiac issues 3patient local culture with ESBL Klebsiella, for the patient is currently being treated with meropenem, will also continue Vanco and the patient did have debridement and deep cultures Time with Patient: Less than 30
[2022-05-31] MEDS: INSULIN ASPART (NovoLOG) 100 UNIT/ML VIAL SQ SCH ×7 (08:31→21:45)
[2022-05-31] MEDS: OXYBUTYNIN 10 MG TAB.ER.24 PO SCH (08:49)
[2022-05-31] MEDS: DIGOXIN 250 MCG TAB PO SCH (08:49)
[2022-05-31] MEDS: DILTIAZEM CD 180 MG CAP.ER.24H PO SCH (08:49)
[2022-05-31] MEDS: MULTIVITAMINS, THERA 1 EACH TAB PO SCH (08:49)
[2022-05-31] MEDS: MEROPENEM 1 GM in SODIUM CHLORIDE 0.9% 100 ML IVPB SCH ×2 (08:49→16:32)
[2022-05-31] MEDS: PANTOPRAZOLE 40 MG/10 ML VIAL IV SCH (08:50)
[2022-05-31 11:16] LABS: Calcium 7.6 mg/dL (8.4-10.2); Potassium 4.4 mmol/L (3.5-5.1)
[2022-05-31 11:59] LABS: Glucose,Whole Blood 134 mg/dL (70-110)
[2022-05-31] MEDS: HYDROcodone/APAP 7.5-325MG 1 EACH TAB PO PRN (13:28)
[2022-05-31 14:18] VITALS: BMI 48.9
--- NOTE | 2022-05-31 14:25 | P.PN ---
Subjective Progress Note Date: 05/31/22 This is a pleasant 61-year-old patient, follows with Dr. Smooth Bob. Chronic stable medical conditions include diabetes, GERD, essential hypertension, hypothyroid. Chronic low back pain. Ovarian cancer treatment for chemo and radiation treatment. Patient at baseline uses a walker and a cane. Was recently in the hospital from May 19 through May 24. Patient presented to ER with some right foot numbness. Patient was dysarthric. Stroke found in the left coronary radiata on the posterior aspect of left frontal lobe. Patient was seen by speech. Was starting a diet. Patient in September 2021 was having significant vaginal bleeding. 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 No metastatic disease. She was not felt to be surgical candidate and was to receive 3 cycles of carboplatin/Taxol follo wed by radiation and 3 additional cycles of the above. She completed radiation on 03/14/2022. Started back on the carbotaxol April 03 and was status post cycle 6 day 1 on May 16. Patient during this admission was started on eliquis with the decision if the patient was to bleed then eliquis be discontinued. Yesterday the patient was noted to have more perianal wounds. Was being followed by wound care. Was evaluated by Taye towards was stable and could be followed up outpatient with Dr. stout who the patient knows from before. Patient was sent in from the ECF today for worsening of the wounds. Area of eschar was present. Some drainage. odor to it. No fever and chills. Appetite fair. May 26: Patient is IV Zosyn and vancomycin. Consultation to ID and surgery. Significant order. Oral intake fair. Discussed with patient. Will need possible debridement. May 27: Seen by surgery. Pending debridement wound VAC, by Dr. Kasper. On antibiotics. Oral intake fair. May 28: Atrial fibrillation uncontrolled. 130s. Telemetry. Cardiology consulted. Pending debridement this afternoon. Digoxin loading done by cardiology. Nothing by mouth for procedure. May 29: Atrial fibrillation rate remains above 100. Patient getting digoxin, Coreg, Cardizem CD. Also IV meropenem and IV vancomycin. Debridement postponed because of atrial fibrillation. Spoke to the nurse patient be moved cardiology floor. May 30: Atrial fibrillation rate controlled. Eliquis on hold. Pending debridement tomorrow. Up in a chair. Eating some. IV antibiotics May 31, 2022 Patient evaluated today resting in bed. She is pending surgical debridement of wound to the right groin and abdominal panus. Wound is malodorous. Groin culture showing klebsiella, blood cultures are so far negative. She continues on IV meropenem and IV vancomycin. Sodium today 132, potassium 4.4, blood glucose in the 130s, calcium 7.6. PT is recommended sub acute rehab on discharge. Eliquis remains on hold. Continues in atrial fibrillation, heart rate is now controlled in the 80s, blood pressure 127/81. Can resume anticoags once cleared by surgery post debridement. Review of Systems Constitutional: Denied any fatigue denied any fever. Cardio vascular: denied any chest pain, palpitations Gastrointestinal: denied any nausea, vomiting, diarrhea. Tolerating diet. Pulmonary: Denied any shortness of breath cough Neurologic denied any new focal deficits All inpatient medications were reviewed and appropriate changes in these medications as dictated in the interval history and assessment and plan. Physical Examination GENERAL: Up in a chair Tired. Morbidly obese. EYES: Pupils equal. Conjunctiva normal. HEENT: External appearance of nose and ears normal, oral cavity grossly normal. NECK: JVD unable to assess; masses not palpable. HEART: Heart sounds irregular; no edema. LUNGS: Respiratory rate normal; distant breath sound. shallow respirations ABDOMEN: Soft, nontender, liver spleen not palpable, no masses palpable. Right groin/panus wound necrotic, draining covered with abd. Foul odor. PSYCH: Alert and oriented x3; mood and affect a bit low MUSCULOSKELETAL:No Clubbing/cyanosis;muscles-grossly intact, evidence of OA DERMATOLOGICAL:/ wounds. Strong order. More detailed in nursing notes NEUROLOGICAL: Slurred speech. Power and sensation grossly intact. Mouth slightly pulled to the left Assessment and plan: --Multiple superficial wounds in the area of the groin and panus. Including drainage and malodorous. Large necrotic wound.: Slow to respond Pending debridement and wound VAC by Dr. Kasper. IV meropenem and vancomycin. Eliquis held. Infectious disease on consult. Following cultures. -Acute stroke in the left [place] radiata on the posterior aspect of the left frontal lobe. suspected to be embolic from underlying paroxysmal atrial fibri llation, on 05/18/2022 Eliquis. No aspirin. Resume eliquis as soon as possible after debridement when cleared by surgery to resume. -Paroxysmal atrial fibrillation: Rate controlled eliquis-held. Coreg 25 mg twice a day. Cardizem CD 180 mg a day. Digoxin -Acute dysphagia from underlying stroke : Chopped diet -Morbid obesity BMI 48.9 Weight loss measures -GERD Prilosec 20 mg -Hypertensive heart disease Coreg 25 mg twice a day. Cardizem CD 180 mg a day. -Essential hypertension Coreg 25 mg twice a day, Cardizem LA 180 mg a day -Chronic urinary stress incontinence Ditropan XL 10 mg a day -Hypothyroid Synthroid 200 g a day -Chronic gait dysfunction Uses a cane/walker at baseline Patient is pending surgical debridement of necrotic groin/panus wound. Wound cultures showing klebsiella continues on IV vancomycin, IV meropenem. She will undergo deep tissue culture during debridement. Encourage incentive spirometer. Subacute rehab recommended by PT on discharge. Patient has been undergoing chemotherapy outpatient, if there is plans for further chemotherapy this will have to be held for subacute rehab. Repeat labs in the AM. Incentive spirometer has been ordered, encourage deep breathing. Resume eliquis when cleared by surgery. The impression and plan of care has been dictated by Shalini Lozano, Nurse Practitioner as directed. Dr. Gregorio MD I have performed a history and physical examination and medical decision making of this patient, discussed the same with the dictator, and agree with the dictators assessment and plan as written, documented as a scribe. Based on total visit time, I have performed more than 50% of this visit. Objective - Vital Signs Vital signs: Vital Signs Temp 98 F 05/31/22 11:45 Pulse 88 05/31/22 11:45 Resp 20 05/31/22 11:45 BP 127/81 05/31/22 11:45 Pulse Ox 95 05/31/22 11:45 FiO2 Intake & Output 05/30/22 05/31/22 05/31/22 18:59 06:59 18:59 Intake Total 1140 Balance 1140 Intake: Intake, IV Titration 700 Amount Meropenem 1 gm In Sodium 200 Chloride 0.9% 100 ml @ 33 .3 mls/hr IVPB Q8HR [facility] Rx#:[id number] Vancomycin 2,000 mg In 500 Sodium Chloride 0.9% 500 ml 500 ml @ 167 mls/hr IVPB Q16H [facility] Rx#: [id number] Oral 440 Other: Voiding Method Diaper Diaper Diaper # Voids 1 1 - Labs CBC & Chem 7: 05/30/22 07:20 05/31/22 10:20 Labs: Abnormal Lab Results - Last 24 Hours (Table) 05/30/22 05/30/22 05/31/22 Range/Units 16:52 20:12 07:13 Sodium (137-145) mmol/L Glucose (74-99) mg/dL POC Glucose (mg/dL) 134 H 132 H 143 H (70-110) mg/dL Calcium (8.4-10.2) mg/dL 05/31/22 05/31/22 Range/Units 10:20 11:57 Sodium 132 L (137-145) mmol/L Glucose 143 H (74-99) mg/dL POC Glucose (mg/dL) 134 H (70-110) mg/dL Calcium 7.6 L (8.4-10.2) mg/dL Microbiology - Last 24 Hours (Table) 05/25/22 14:29 Blood Culture - Preliminary Blood No Growth after 120 hours 05/25/22 14:29 Blood Culture - Preliminary Blood No Growth after 120 hours Assessment and Plan Time with Patient: Less than 30
[2022-05-31 16:45] LABS: Glucose,Whole Blood 123 mg/dL (70-110)
[2022-05-31] MEDS ORDERED: LACTATED RINGERS 1,000 ML IV ONE (17:20)
[2022-05-31] MEDS ORDERED: PROPOFOL 10 MG/ML 20 ML VIAL IV ONE (17:30)
[2022-05-31] MEDS ORDERED: LIDOCAINE 2% INJ 20 MG/ML (2 ML VIAL) ONE (17:30)
[2022-05-31] MEDS ORDERED: HYDROmorphone (PF) 1 MG/ML ONE (17:30)
[2022-05-31] MEDS ORDERED: fentaNYL (PF) 50 MCG/ML 2 ML AMP ONE (17:30)
[2022-05-31] MEDS ORDERED: SUCCINYLCHOLINE CHLORIDE 200 MG/10 ML VIAL IV ONE (17:30)
[2022-05-31] MEDS ORDERED: MIDAZOLAM 2 MG/2 ML VIAL ONE (17:30)
[2022-05-31] MEDS ORDERED: KETOROLAC 15 MG/ML 1 ML VIAL ONE (17:30)
[2022-05-31] MEDS ORDERED: HYDROmorphone 0.5 MG/0.5 ML SYRINGE IVP ONE (19:30)
--- NOTE | 2022-05-31 19:36 | P.OP ---
Date of Procedure: 05/31/22 Description of Procedure: SURGEON: CHIKI MUNOZ MD [employer] SUPERVISOR: None. PREOPERATIVE DIAGNOSES: 1. Complex right groin wound 2. History of uterine/ovarian cancer and pelvic radiation 3. Morbid obesity due to excess calories, BMI 48.9 4. Panniculitis, over 50 pounds 5. Recent cerebrovascular accident 6. Atrial fibrillation with rapid ventricular response 7. Hypothyroidism 8. Insulin-dependent diabetes type 2 with retinopathy 9. Gastroesophageal reflux disease 10. Hyperlipidemia 11. Chronic anticoagulation POSTOPERATIVE DIAGNOSES: 1. Necrotizing/gangrenous right groin wound/pubis, 48 x 11 cm 2. History of uterine cancer and radiation 3. Morbid obesity due to excess calories, BMI 48.9 4. Panniculitis, over 50 pounds 5. Recent cerebrovascular accident 6. Atrial fibrillation with rapid ventricular response 7. Hypothyroidism 8. Insulin-dependent diabetes type 2 with retinopathy 9. Gastroesophageal reflux disease 10. Hyperlipidemia 11. Chronic anticoagulation PROCEDURES PERFORMED: 1. Sharp excisional debridement of complex right groin/pubis wound 48 x 10 x 5 cm (over 500 cm) to fascia and subcutaneous tissue 2. Mechanical debridement using Pulsavac lavage 3 L normal saline solution with high pressure water jet including #10 scalpel, 48 x 11 x 5 cm Anesthesia: GETA Estimated Blood Loss (ml): 50 Pathology: Aerobic and anaerobic tissue culture, excisional debridment wound Condition: stable COMPLICATIONS: None. Operative Findings: 1. Dark superficial eschar 20 x 10 cm with the foul purulence and necrotizing fat to fascia involving right groin to pubis, 48 x 11 x 5 cm 2. Deep cultures obtained with gangrenous liquefied ubcutaneous tissue 3. Complex wound to fascia and subcutaneous tissue with tunneling of purulence excised with wide defect 48 x 11 x 5 cm DISPOSITION: To the floor. Due to complex wound, may benefit from tertiary care center management including soft tissue coverage with plastic surgery consultation INDICATIONS: The patient is a 61-year-old female who presented right groin fibrinous exudate with foul smelling discharge. Benefits and risks of bleeding, infection, need for additional surgery, cosmetic deformity was described. Informed consent was obtained. DESCRIPTION OR PROCEDURE: Patient was brought into the operating room. After general induction, she was positioned in supine position. Due to her 50 pound pannus, the pannus was retracted to the left of the abdomen. The wound was prepped and draped with chlorhexidine soap. Timeout protocol was confirmed with the surgical team regarding the patient's name, procedure to be performed including preoperative medications for which she is on scheduled vancomycin. DVT prophylaxis was confirmed with heparin and sequential compression devices. Along the right groin, sharp invodemarcationlving the right groin and pubis with necrotic dark tissue was found with draining foul-smelling purulence and multiple 6 moderate tunneling of 1 cm in size involving the pubis. Sharp excisional debridement along the borders were performed using a #10 blade to hea lthy bleeding tissues. Immediately, the deep subcutaneous tissue was yellow and brown with black capillary thrombosis consistent with gangrene of the wound. Depth of necrosis extended to the fascia. Sharp excisional debridement of necrotic wound was performed including takedown of skin bridges and tunneling with open defect of 48 cm with x 10 cm length 3 cm depth extending to the right pubis just above the pubic commissure. The wound was copiously irrigated using pulse lavage of 3 L normal saline to bleeding tissue. Additionally, Dakin solution was used to address extremely foul drainage from the wound. Hemostasis was checked. Kerlix roll 2 were moistened with Dakin solution and placed along the depth of the wound followed by ABDs 8. Mediport tape 6 inches was used to elevate the large pannus including cover the dressing. As the wound extended to the pubic commissure with difficulty of urination, a Sutherland catheter was placed. At the end of the procedure, needle, sponge, and instrument count was verified correct by surgical pathologist. The patient was transferred into the postanesthesia care unit in stable condition. With complexity of wound and large soft tissue defect, referral to tertiary care center advised for additional extensive debridement and soft tissue coverage.
[2022-05-31 20:01] LABS: Glucose,Whole Blood 151 mg/dL (70-110)
[2022-05-31 21:15] LABS: Glucose,Whole Blood 187 mg/dL (70-110)
[2022-05-31] MEDS: VANCOMYCIN 1,500 MG in SODIUM CHLORIDE 0.9% 250 ML IVPB SCH (21:41)
[2022-05-31] MEDS: ATORVASTATIN 40 MG TAB PO SCH (21:44)
[2022-05-31] MEDS: HEPARIN SODIUM,PORCINE/PF 5,000 UNIT/0.5 ML SYRINGE SQ SCH (21:45)
[2022-05-31] MEDS: HYDROmorphone 0.5 MG/0.5 ML SYRINGE IVP PRN (23:32)
[2022-06-01] MEDS: MEROPENEM 1 GM in SODIUM CHLORIDE 0.9% 100 ML IVPB SCH ×3 (00:13→16:41)
[2022-06-01] MEDS: SODIUM CHLORIDE 0.9% 1,000 ML IV SCH (06:33)
[2022-06-01 06:37] LABS: Glucose,Whole Blood 166 mg/dL (70-110)
[2022-06-01] MEDS: carvediloL 12.5 MG TAB PO SCH ×2 (06:44→16:44)
[2022-06-01] MEDS: metFORMIN 500 MG TAB PO SCH ×3 (06:45→16:41)
[2022-06-01] MEDS: LEVOTHYROXINE 100 MCG TAB PO SCH (06:45)
[2022-06-01] MEDS: INSULIN ASPART (NovoLOG) 100 UNIT/ML VIAL SQ SCH ×6 (06:46→16:45)
[2022-06-01] MEDS: HYDROmorphone 0.5 MG/0.5 ML SYRINGE IVP PRN ×3 (06:47→15:00)
[2022-06-01 08:43] LABS: Calcium 7.9 mg/dL (8.4-10.2)
[2022-06-01 09:22] LABS: Anisocytosis Slight; Basophils % (A) 0 %; Eosinophils % (A) 0 %; HCT 33.2 % (34.0-46.0); HGB 9.9 gm/dL (11.4-16.0); Hypochromasia Moderate; Lymphocytes # (A) 0.3 k/uL (1.0-4.8); Lymphocytes % (A) 3 %; MCH 28.2 pg (25.0-35.0); MCV 94.1 fL (80.0-100.0); Mean Platelet Volume 8.1; Monocytes # (A) 0.4 k/uL (0-1.0); Monocytes % (A) 4 %; Neutrophils # (A) 9.2 k/uL (1.3-7.7); Neutrophils % (A) 92 %; Platelet Count 453 k/uL (150-450); RBC 3.53 m/uL (3.80-5.40); RDW 16.7 % (11.5-15.5)
--- NOTE | 2022-06-01 10:43 | P.CONS ---
History of Present Illness - Reason for Consult Consult date: 06/01/22 wound care - History of Present Illness This is a 61-year-old patient being seen on [facility] for radiation [place] to the periwound. 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 Patient states that the ulcerations have been there for approximately 4 months. Patient has multiple open ulcerations with ecchymosis and serous drainage noted to the abdomen, perineum, and groin. She was seen one week ago. The ulcerations at that time had significantly declined with increased drainage and odor, eschar Slough and nonviable tissue present. Patient underwent a surgical debridement yesterday resulting in an open ulceration measuring 48 x 10 x 3 cm with necrotic tissue and nonviable tissue. At this time patient has a surgical dressing in place. Due to the size of the ulceration a negative pressure wound VAC would be beneficial however because of the location obtaining a seal may be difficult. Patient would also benefit from a possible flap. Review Of Systems: Constitutional: No fever, no chills, no night sweats. No weight change. No weakness, fatigue or lethargy. No daytime sleepiness. Integumentary:reports wounds, no lesions. No rash or pruritus. No unusual bruising. No change in hair or nails. Physical exam: General Appearance: Alert, cooperative, no distress, appears stated age. Skin: See HPI all other Skin color, texture, tugor normal, no rashes or lesions. Neurologic: Alert oriented x3 Assessment: 1. Multiple open ulcerations with muscle involvement with necrosis exposure related to radiation and chemo. 2. Soft tissue radionecrosis Plan: 1. Recommendation for negative pressure wound VAC with black foam and 150 mmHg continuous suction. However if unable to obtain a adequate seal utilize absorptive silver moistened, Kerlix for packing, ADD and secure with tape. Patient would benefit from possible graft or flap to the site for healing. Thank you for the consultation any questions was contact the wound care center DNP note has been reviewed and discussed with Dr. Jimenez and the impression and plan of care has been directed as dictated. Past Medical History Past Medical History: Atrial Fibrillation, Cancer, Diabetes Mellitus, GERD/Reflux, Hypertension, Thyroid Disorder Additional Past Medical History / Comment(s): Pt states she has had intermittent vaginal bleeding over past one year, NIDDM type II, UTIs, hypothyroid, chronic low back pain, occasional bilateral leg pain at night. Ovarian cancer with chemo and radiation. History of Any Multi-Drug Resistant Organisms: ESBL Year Discovered:: 05/25/22 ESBL MDRO Source:: Groin Past Surgical History: Heart Catheterization, Tonsillectomy, Uterine Ablation Additional Past Surgical History / Comment(s): Nasal fracture with surgery, wisdom teeth extractions. Past Anesthesia/Blood Transfusion Reactions: Postoperative Nausea & Vomiting (PONV) Additional Past Anesthesia/Blood Transfusion Reaction / Comm: Pt received blood this hospitalization without reaction. Past Psychological History: Depression Additional Psychological History / Comment(s): Pt resides alone in an apartment. She uses a walker or cane. She drives. Smoking Status: Former smoker Past Alcohol Use History: None Reported Additional Past Alcohol Use History / Comment(s): PT started smoking as a teen and quit in 1994. Past Drug Use History: None Reported - Past Family History Father Family Medical History: Cancer Additional Family Medical History / Comment(s): Father of lung cancer. He was a smoker. Mother Family Medical History: Vascular Disorder Additional Family Medical History / Comment(s): Mother of a cerebral aneurysm at the age of 58 yrs. Medications and Allergies Home Medications Medication Instructions Recorded Confirmed Type Levothyroxine Sodium 200 mcg PO DAILY 10/10/21 05/25/22 History Nitroglycerin Sl Tabs [Nitrostat] 0.4 mg SL Q5M PRN 10/10/21 05/25/22 History Nystatin 100,000Unit/gm Cream 1 applic TOPICAL BID PRN 10/10/21 05/25/22 History [Mycostatin Cream] Acetaminophen Tab [Tylenol] 1,000 mg PO Q6H PRN 05/18/22 05/25/22 History Omeprazole Magnesium [PriLOSEC OTC] 20 mg PO DAILY 05/18/22 05/25/22 History Oxybutynin ER [Ditropan Xl] 10 mg PO DAILY 05/18/22 05/25/22 History carvediloL [Coreg] 25 mg PO BID 05/18/22 05/25/22 History dilTIAZem HCL [Cardizem LA] 180 mg PO DAILY 05/18/22 05/25/22 History metFORMIN HCL ER [Glucophage XR] 500 mg PO TID-W/MEALS 05/18/22 05/25/22 History Acetaminophen/Diphenhydramine 2 tab PO HS #7 tab 05/23/22 05/25/22 Rx [Tylenol PM 500-25mg] Apixaban [Eliquis] 2.5 mg PO BID tab 05/23/22 05/25/22 Rx Atorvastatin [Lipitor] 40 mg PO HS tab 05/23/22 05/25/22 Rx HYDROcodone/APAP 7.5-325MG [[place] 1 tab PO Q6HR PRN 3 Days #12 tab 05/23/22 05/25/22 Rx 7.5-325] INSULIN ASPART (NovoLOG) [NovoLOG 5 unit SQ ACHS 05/25/22 05/25/22 History (formulary)] Allergies Allergy/AdvReac Type Severity Reaction Status Date / Time apixaban [From Eliquis] AdvReac Unsure, Verified 05/31/22 17:50 told by Records Analysis Manager not to take Physical Exam Vitals: Vital Signs Temp Pulse Pulse Pulse Resp BP Pulse Ox 06/01/22 04:00 97.7 F 85 12 132/70 97 05/31/22 23:29 97.2 F L 63 12 118/65 93 L 05/31/22 20:00 96.8 F L 80 12 134/61 95 05/31/22 19:45 86 18 101/50 95 05/31/22 19:30 89 16 91/67 96 05/31/22 19:17 98 F 86 20 97/59 94 L 05/31/22 17:15 97.7 F 77 18 141/77 95 05/31/22 16:34 97.7 F 77 20 152/73 95 05/31/22 11:45 98 F 88 20 127/81 95 Intake and Output 05/31/22 06/01/22 06/01/22 22:59 06:59 14:59 Intake Total 850 180 Output Total 50 400 100 Balance 800 -400 80 Intake: IV 850 Oral 180 Output: Urine 400 100 Estimated Blood Loss 50 Other: Voiding Method Indwelling Catheter Indwelling Catheter Results CBC & Chem 7: 06/01/22 08:08 06/01/22 08:08 Labs: Abnormal Lab Results - Last 24 Hours (Table) 05/31/22 05/31/22 05/31/22 Range/Units 10:20 11:57 16:44 RBC (3.80-5.40) m/uL Hgb (11.4-16.0) gm/dL Hct (34.0-46.0) % MCHC (31.0-37.0) g/dL RDW (11.5-15.5) % Plt Count (150-450) k/uL Neutrophils # (1.3-7.7) k/uL Lymphocytes # (1.0-4.8) k/uL Sodium 132 L (137-145) mmol/L BUN (7-17) mg/dL Glucose 143 H (74-99) mg/dL POC Glucose (mg/dL) 134 H 123 H (70-110) mg/dL Calcium 7.6 L (8.4-10.2) mg/dL 05/31/22 05/31/22 06/01/22 Range/Units 19:59 21:13 06:35 RBC (3.80-5.40) m/uL Hgb (11.4-16.0) gm/dL Hct (34.0-46.0) % MCHC (31.0-37.0) g/dL RDW (11.5-15.5) % Plt Count (150-450) k/uL Neutrophils # (1.3-7.7) k/uL Lymphocytes # (1.0-4.8) k/uL Sodium (137-145) mmol/L BUN (7-17) mg/dL Glucose (74-99) mg/dL POC Glucose (mg/dL) 151 H 187 H 166 H (70-110) mg/dL Calcium (8.4-10.2) mg/dL 06/01/22 06/01/22 Range/Units 08:08 08:08 RBC 3.53 L (3.80-5.40) m/uL Hgb 9.9 L (11.4-16.0) gm/dL Hct 33.2 L (34.0-46.0) % MCHC 30.0 L (31.0-37.0) g/dL RDW 16.7 H (11.5-15.5) % Plt Count 453 H (150-450) k/uL Neutrophils # 9.2 H (1.3-7.7) k/uL Lymphocytes # 0.3 L (1.0-4.8) k/uL Sodium 132 L (137-145) mmol/L BUN 19 H (7-17) mg/dL Glucose 158 H (74-99) mg/dL POC Glucose (mg/dL) (70-110) mg/dL Calcium 7.9 L (8.4-10.2) mg/dL Microbiology - Last 24 Hours (Table) 05/25/22 14:29 Blood Culture - Final Blood No Growth after 144 hours 05/25/22 14:29 Blood Culture - Final Blood No Growth after 144 hours Assessment and Plan (1) 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
[2022-06-01] MEDS: PANTOPRAZOLE 40 MG/10 ML VIAL IV SCH (10:47)
[2022-06-01] MEDS: DILTIAZEM CD 180 MG CAP.ER.24H PO SCH (10:47)
[2022-06-01] MEDS: HEPARIN SODIUM,PORCINE/PF 5,000 UNIT/0.5 ML SYRINGE SQ SCH (10:47)
[2022-06-01] MEDS: MULTIVITAMINS, THERA 1 EACH TAB PO SCH (10:47)
[2022-06-01] MEDS: DIGOXIN 250 MCG TAB PO SCH (10:48)
[2022-06-01] MEDS: OXYBUTYNIN 10 MG TAB.ER.24 PO SCH (10:48)
[2022-06-01 11:30] LABS: Glucose,Whole Blood 192 mg/dL (70-110)
--- NOTE | 2022-06-01 11:31 | P.PN ---
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 We have been asked to the patient consultation for atrial fibrillation with RVR and cardiac clearance. Patient presented to the ER on 05/24/2022 secondary to worsening wounds and infection. Patient followed by wound care outpatient and was found to have more perineal wounds. Infectious disease following patient and patient on IV antibiotics, meropenem. Patient also evaluated by surgery and recommending debridement. Patient seen and examined at bedside, no acute distress. She denies any shortness of breath, palpitations, chest pain, lightheadedness or dizziness. She denies any fever, chills. Patient was recently admitted on 05/18/20 found to have an Acute stroke in the left [place] radiata on the posterior aspect of the left frontal lobe. Cardiology saw patient for atrial fibrillation and patient was placed on Eliquis anticoagulation. DIAGNOSTICS: Echocardiogram 05/19/2022 revealed EF 5560%, severe left ventricular hypertrophy, trace mitral and trace tricuspid regurgitation 05/29/2022 Patient seen and examined at bedside, sitting at the edge of the pad working with physical therapy. No symptoms of chest pain or shortness of breath or palpitations. She denies any lightheadedness or dizziness. She was started on digoxin yesterday. Telemetry reviewed patient is in atrial fibrillation with better controlled heart rates. HR 90s. 06/01/2022 Patient examined this morning at the bedside. Patient denies chest pain or pressure. Denies SOB. Vital signs are stable. She remains in atrial fibrillation with controlled ventricular rates. She is s/p debridement of right groin wound with Dr. Nolasco. Per her documentation, she recommends referral to tertiary care center for additional extensive debridement and soft tissue coverage. Patient Eliquis remains on hold. PHYSICAL EXAM: VITAL SIGNS: Reviewed. GENERAL: Well-developed in no acute distress. NECK: Supple. No JVD or thyromegaly LUNGS: Respirations even and unlabored. Lungs essentially clear to auscultation bilaterally. HEART: Irregular rate and rhythm. S1 and S2 heard. EXTREMITIES: Normal range of motion. No clubbing or cyanosis. Peripheral pulses intact. Trace lower extremity edema ASSESSMENT: Right groin necrotic wound Multiple wounds in groin and perineal area Paroxysmal atrial fibrillation on Eliquis Recent Acute CVA in 05/19/2022 Reported history of CAD with likely [employer]ATOR Hypertension Diabetes mellitus type 2 Uterine cancer undergoing chemotherapy with prior significant vaginal bleeding Obesity PLAN: Continue telemetry monitoring Resume Eliquis when okay with general surgery. If general surgery wants to continue to hold Eliquis, will start IV heparin. Awaiting to hear back from surgery team. Further recommendations pending patient's course Nurse practitioner note has been reviewed by physician. Signing provider agrees with the documented findings, assessment, and plan of care. Objective - Vital Signs Vital signs: Vital Signs Temp 97.9 F 06/01/22 10:39 Pulse 76 06/01/22 10:39 Resp 18 06/01/22 10:39 BP 127/59 06/01/22 10:39 Pulse Ox 97 06/01/22 10:39 FiO2 Intake & Output 05/31/22 06/01/22 06/01/22 18:59 06:59 18:59 Intake Total 850 0 180 Output Total 450 100 Balance 850 -450 80 Weight 141.521 kg Intake: IV 850 0 Oral 180 Output: Urine 400 100 Estimated Blood Loss 50 Other: Voiding Method Diaper Indwelling Catheter # Voids 4 - Labs CBC & Chem 7: 06/01/22 08:08 06/01/22 08:08 Labs: Abnormal Lab Results - Last 24 Hours (Table) 05/31/22 05/31/22 05/31/22 Range/Units 11:57 16:44 19:59 RBC (3.80-5.40) m/uL Hgb (11.4-16.0) gm/dL Hct (34.0-46.0) % MCHC (31.0-37.0) g/dL RDW (11.5-15.5) % Plt Count (150-450) k/uL Neutrophils # (1.3-7.7) k/uL Lymphocytes # (1.0-4.8) k/uL Sodium (137-145) mmol/L BUN (7-17) mg/dL Glucose (74-99) mg/dL POC Glucose (mg/dL) 134 H 123 H 151 H (70-110) mg/dL Calcium (8.4-10.2) mg/dL 05/31/22 06/01/22 06/01/22 Range/Units 21:13 06:35 08:08 RBC 3.53 L (3.80-5.40) m/uL Hgb 9.9 L (11.4-16.0) gm/dL Hct 33.2 L (34.0-46.0) % MCHC 30.0 L (31.0-37.0) g/dL RDW 16.7 H (11.5-15.5) % Plt Count 453 H (150-450) k/uL Neutrophils # 9.2 H (1.3-7.7) k/uL Lymphocytes # 0.3 L (1.0-4.8) k/uL Sodium (137-145) mmol/L BUN (7-17) mg/dL Glucose (74-99) mg/dL POC Glucose (mg/dL) 187 H 166 H (70-110) mg/dL Calcium (8.4-10.2) mg/dL 06/01/22 Range/Units 08:08 RBC (3.80-5.40) m/uL Hgb (11.4-16.0) gm/dL Hct (34.0-46.0) % MCHC (31.0-37.0) g/dL RDW (11.5-15.5) % Plt Count (150-450) k/uL Neutrophils # (1.3-7.7) k/uL Lymphocytes # (1.0-4.8) k/uL Sodium 132 L (137-145) mmol/L BUN 19 H (7-17) mg/dL Glucose 158 H (74-99) mg/dL POC Glucose (mg/dL) (70-110) mg/dL Calcium 7.9 L (8.4-10.2) mg/dL Microbiology - Last 24 Hours (Table) 05/31/22 Unknown Wound Culture - Preliminary Groin 05/31/22 Unknown Anaerobic Culture - Preliminary Groin 05/25/22 14:29 Blood Culture - Final Blood No Growth after 144 hours 05/25/22 14:29 Blood Culture - Final Blood No Growth after 144 hours
[2022-06-01] MEDS: VANCOMYCIN 1,500 MG in SODIUM CHLORIDE 0.9% 250 ML IVPB SCH (13:04)
[2022-06-01] MEDS ORDERED: HEPARIN SODIUM 1,000 UN/ML (10ML VL) IV PRN (13:13)
[2022-06-01] MEDS ORDERED: HEPARIN SOD,PORK IN 0.45% NACL 25,000 UNIT in 0.45% NACL 1 250ML.BAG IV SCH (13:15)
--- NOTE | 2022-06-01 14:25 | P.PN ---
Subjective Progress Note Date: 06/01/22 CHIEF COMPLAINT: Right groin infection HISTORY OF PRESENT ILLNESS: Patient is postop day #1 status post sharp excisional debridement of complex right groin/pubis wound 48 x 10 x 5 cm (over 500 cm) to fascia and subcutaneous tissue. Mechanical debridement using Pulsavac lavage 3 L normal saline solution with high pressure water jet. Patient is lying in bed comfortably. Her pain is controlled. Afebrile WBC is 10.0 Hgb 9.9 platelets 453 creatinine 0.93 PHYSICAL EXAM: VITAL SIGNS: Reviewed GENERAL: Well-developed in no acute distress. HEENT: No sclera icterus. Extraocular movements grossly intact. Moist buccal mucosa. Head is atraumatic, normocephalic. Hears conversational speech. No nasal drainage. NECK: Supple without lymphadenopathy. CHEST: Non-labored respirations and equal bilateral excursions. CARDIOVASCULAR: Palpable 2+ radial pulses. ABDOMEN: Right groin wound dressing clean dry and intact MUSCULOSKELETAL: No clubbing or cyanosis. NEUROLOGIC: No focal or lateralizing signs. Cranial nerves II through XII grossly intact. PSYCH: Appropriate affect. Alert and oriented to person, place and time. SKIN: Well perfused. Good skin turgor. ASSESSMENT: 1. Necrotizing/gangrenous right groin wound/pubis, 48 x 11 cm 2. History of uterine cancer and radiation 3. Morbid obesity due to excess calories, BMI 48.9 4. Panniculitis, over 50 pounds 5. Recent cerebrovascular accident 6. Atrial fibrillation with rapid ventricular response 7. Hypothyroidism 8. Insulin-dependent diabetes type 2 with retinopathy 9. Gastroesophageal reflux disease 10. Hyperlipidemia 11. Chronic anticoagulation PLAN: -Due to complexity of wound and large soft tissue defect recommend referral to tertiary care center for additional extensive debridement and soft tissue coverage. And patient will require evaluation by a plastic surgeon which is not available at this hospital -Continue antibiotics -Continue supportive care -For her anticoagulation from surgical standpoint would recommend starting IV heparin and to continue to hold oral anticoagulation due to patient requiring more surgical intervention at the tertiary [facility] center. This was discussed with cardiology nurse practitioner Physician [employer] Admin note has been reviewed by physician. Signing provider agrees with the documented findings, assessment, and plan of care. 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 Her pain is controlled. Patient is been seen by wound care. Due to large size wound including complicated debridement, recommendation for tertiary care management is being sought. I personally spoke with infectious disease provider of intraoperative findings. Patient also has complicated [id number] wound. Patient also informed of intraoperative findings including care management. Otherwise, no fevers or chills. Indwelling Sutherland catheter placed due to complicated pelvic and groin wound. REVIEW OF ORGAN SYSTEMS: No fevers or chills. No chest pain. No nausea or vomi ting. PHYSICAL EXAM: VITALS: Reviewed CONSTITUTIONAL: Well developed and in no acute distress. EYES: Conjuctivae without sclera icterus. Extraocular movements grossly intact. HEAD, EARS, NOSE, THROAT: Moist buccal mucosa. Head is atraumatic, normocephalic. Hears conversational speech. No nasal drainage. RESPIRATORY: Non-labored respirations and equal bilateral excursions. No gross wheezes. CARDIOVASCULAR: Palpable 2+ radial pulses. ABDOMEN: Dressing clean Donald intact. Non-malodorous. Wound 48 x 11 x 5 cm from intraoperative findings. Pannus 50 pounds. MUSCULOSKELETAL: No clubbing cyanosis. SKIN: Warm and well perfused with good skin turgor. NEUROLOGIC: Cranial nerves II through XII grossly intact. No focal or lateralizing signs. PSYCH: Appropriate affect. Alert and oriented to person, place and time. Displays appropriate insight. CLINCAL LABS: Reviewed. WBC normal. MICRO: ESBL Klebsiella with multidrug resistance. On meropenem and vancomycin. ASSESSMENT: 1. Right groin necrotic wound 2. Panniculitis 3. Morbid obesity 4. New-onset atrial fibrillation 5. 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 Discussion with case management including infectious disease provider and review of wound care team assessment performed. Agreement with transfer to tertiary care due to complicated pelvic abdominal wound with large tissue defect requiring plastic surgical assessment. 2. Continue IV antibiotics 3. Will need additional debridement 4. Above also discussed with case resource manager with pending transfer. Objective - Vital Signs Vital signs: Vital Signs Temp 97.9 F 06/01/22 10:39 Pulse 76 06/01/22 10:39 Resp 18 06/01/22 10:39 BP 127/59 06/01/22 10:39 Pulse Ox 97 07/22/22 10:39 FiO2 Intake & Output 05/31/22 06/01/22 06/01/22 18:59 06:59 18:59 Intake Total 850 0 360 Output Total 450 100 Balance 850 -450 260 Weight 141.521 kg Intake: IV 850 0 Oral 360 Output: Urine 400 100 Estimated Blood Loss 50 Other: Voiding Method Diaper Indwelling Catheter Indwelling Catheter # Voids 4 - Labs CBC & Chem 7: 06/01/22 08:08 06/01/22 08:08 Labs: Abnormal Lab Results - Last 24 Hours (Table) 05/31/22 05/31/22 05/31/22 Range/Units 16:44 19:59 21:13 RBC (3.80-5.40) m/uL Hgb (11.4-16.0) gm/dL Hct (34.0-46.0) % MCHC (31.0-37.0) g/dL RDW (11.5-15.5) % Plt Count (150-450) k/uL Neutrophils # (1.3-7.7) k/uL Lymphocytes # (1.0-4.8) k/uL Sodium (137-145) mmol/L BUN (7-17) mg/dL Glucose (74-99) mg/dL POC Glucose (mg/dL) 123 H 151 H 187 H (70-110) mg/dL Calcium (8.4-10.2) mg/dL 06/01/22 06/01/22 06/01/22 Range/Units 06:35 08:08 08:08 RBC 3.53 L (3.80-5.40) m/uL Hgb 9.9 L (11.4-16.0) gm/dL Hct 33.2 L (34.0-46.0) % MCHC 30.0 L (31.0-37.0) g/dL RDW 16.7 H (11.5-15.5) % Plt Count 453 H (150-450) k/uL Neutrophils # 9.2 H (1.3-7.7) k/uL Lymphocytes # 0.3 L (1.0-4.8) k/uL Sodium 132 L (137-145) mmol/L BUN 19 H (7-17) mg/dL Glucose 158 H (74-99) mg/dL POC Glucose (mg/dL) 166 H (70-110) mg/dL Calcium 7.9 L (8.4-10.2) mg/dL 06/01/22 Range/Units 11:29 RBC (3.80-5.40) m/uL Hgb (11.4-16.0) gm/dL Hct (34.0-46.0) % MCHC (31.0-37.0) g/dL RDW (11.5-15.5) % Plt Count (150-450) k/uL Neutrophils # (1.3-7.7) k/uL Lymphocytes # (1.0-4.8) k/uL Sodium (137-145) mmol/L BUN (7-17) mg/dL Glucose (74-99) mg/dL POC Glucose (mg/dL) 192 H (70-110) mg/dL Calcium (8.4-10.2) mg/dL Microbiology - Last 24 Hours (Table) 05/31/22 Unknown Wound Culture - Preliminary Groin 05/31/22 Unknown Anaerobic Culture - Preliminary Groin 05/25/22 14:29 Blood Culture - Final Blood No Growth after 144 hours 05/25/22 14:29 Blood Culture - Final Blood No Growth after 144 hours
[2022-06-01 15:03] LABS: INR 1.1 (<1.2); Partial Thromboplastin Time 25.4 sec (22.0-30.0); Prothrombin Time 11.6 sec (9.0-12.0)
--- NOTE | 2022-06-01 16:09 | P.PN ---
Subjective Progress Note Date: 05/31/22 Principal diagnosis: Right groin and abdominal pannus wound infection Patient is a 61-year-old female morbidly obese with multiple comorbidities in this patient who did have ovarian cancer s/p radiation chemotherapy with necrotic wound to the right groin and the abdominal panus. On today's evaluation that is 05/31/2022, the patient remains to be afebrile, the patient is breathing comfortably on room air, patient pain to the right groin/ lower abdominal wound area is currently controlled, patient denies chest pain or shortness of breath or cough and no diarrhea has been reported by the nursing staff, patient currently waiting for surgical debridement Objective - Vital Signs Vital signs: Vital Signs Temp 98 F 05/31/22 11:45 Pulse 88 05/31/22 11:45 Resp 20 05/31/22 11:45 BP 127/81 05/31/22 11:45 Pulse Ox 95 05/31/22 11:45 FiO2 Intake & Output 05/30/22 05/31/22 05/31/22 18:59 06:59 18:59 Intake Total 1140 Balance 1140 Weight 141.521 kg Intake: Intake, IV Titration 700 Amount Meropenem 1 gm In Sodium 200 Chloride 0.9% 100 ml @ 33 .3 mls/hr IVPB Q8HR FANNY Rx#:[id number] Vancomycin 2,000 mg In 500 Sodium Chloride 0.9% 500 ml 500 ml @ 167 mls/hr IVPB Q16H FANNY Rx#: [id number] Oral 440 Other: Voiding Method Diaper Diaper Diaper # Voids 1 1 - Exam GENERAL DESCRIPTION: Middle-aged female lying in bed in no distress RESPIRATORY SYSTEM: Unlabored breathing , decreased breath sounds at bases HEART: S1 S2 regular rate and rhythm , ABDOMEN: Soft , right groin with a necrotic wound surrounding redness and foul- smelling drainage EXTREMITIES: Diffuse swelling of both legs - Labs CBC & Chem 7: 06/01/22 08:08 06/01/22 08:08 Labs: Abnormal Lab Results - Last 24 Hours (Table) 05/30/22 05/30/22 05/31/22 Range/Units 16:52 20:12 07:13 Sodium (137-145) mmol/L Glucose (74-99) mg/dL POC Glucose (mg/dL) 134 H 132 H 143 H (70-110) mg/dL Calcium (8.4-10.2) mg/dL 05/31/22 05/31/22 Range/Units 10:20 11:57 Sodium 132 L (137-145) mmol/L Glucose 143 H (74-99) mg/dL POC Glucose (mg/dL) 134 H (70-110) mg/dL Calcium 7.6 L (8.4-10.2) mg/dL Microbiology - Last 24 Hours (Table) 05/25/22 14:29 Blood Culture - Preliminary Blood No Growth after 120 hours 05/25/22 14:29 Blood Culture - Preliminary Blood No Growth after 120 hours Assessment and Plan (1) Right groin wound Current Visit: Yes Status: Acute Code(s): S31.109A - UNSP OPN WND ABD WALL, UNSP Q W/O PENET PERIT CAV, INIT SNOMED Code(s): 191792185 (2) Soft tissue radionecrosis Current Visit: No Status: Acute Priority: High Code(s): L59.8 - OTH DISRD OF THE SKIN, SUBCU RELATED TO RADIATION; Y84.2 - RADIOLOG PROC/RADIOTHRPY CAUSE ABN REACT/COMPL, W/O MISADVNT SNOMED Code(s): 27789231 Plan: 1patient with extensive wound to the right groin and lower abdominal pannus with necrotic tissue foul-smelling concerning for underlying deep infection and will need to cover for both gram-positive skin brien as well as gram-negative pathogen. 2patient right groin and abdominal debridement and deep cultures is currently scheduled for this afternoon 3patient initial culture with ESBL Klebsiella, for which the patient is currently being treated with meropenem which will be continued along with Vanco till debridement and deep cultures Time with Patient: Less than 30
--- NOTE | 2022-06-01 16:11 | P.PN ---
Subjective Progress Note Date: 06/01/22 Principal diagnosis: Right groin and abdominal pannus wound infection Patient is a 61-year-old female morbidly obese with multiple comorbidities in this patient who did have ovarian cancer s/p radiation chemotherapy with necrotic wound to the right groin and the abdominal panus. Patient is status post surgical debridement of the right inguinal wound with evidence of necrotizing infection completed on 05/31/2022 On today's evaluation that is 06/01/2022, the patient denies any fever or any chills, the patient is breathing comfortably on room air, patient pain to the right groin/ lower abdominal wound area is currently controlled, patient denies chest pain or shortness of breath or cough and no diarrhea Objective - Vital Signs Vital signs: Vital Signs Temp 97.9 F 06/01/22 10:39 Pulse 76 06/01/22 10:39 Resp 18 06/01/22 10:39 BP 127/59 06/01/22 10:39 Pulse Ox 97 06/01/22 10:39 FiO2 Intake & Output 05/31/22 06/01/22 06/01/22 18:59 06:59 18:59 Intake Total 850 0 540 Output Total 450 100 Balance 850 -450 440 Weight 141.521 kg Intake: IV 850 0 Oral 540 Output: Urine 400 100 Estimated Blood Loss 50 Other: Voiding Method Diaper Indwelling Catheter Indwelling Catheter # Voids 4 - Exam GENERAL DESCRIPTION: Middle-aged female lying in bed in no distress RESPIRATORY SYSTEM: Unlabored breathing , decreased breath sounds at bases HEART: S1 S2 regular rate and rhythm , ABDOMEN: Soft , right groin is currently covered with a surgical dressing EXTREMITIES: Diffuse swelling of both legs - Labs CBC & Chem 7: 06/01/22 08:08 06/01/22 08:08 Labs: Abnormal Lab Results - Last 24 Hours (Table) 05/31/22 05/31/22 05/31/22 Range/Units 16:44 19:59 21:13 RBC (3.80-5.40) m/uL Hgb (11.4-16.0) gm/dL Hct (34.0-46.0) % MCHC (31.0-37.0) g/dL RDW (11.5-15.5) % Plt Count (150-450) k/uL Neutrophils # (1.3-7.7) k/uL Lymphocytes # (1.0-4.8) k/uL Sodium (137-145) mmol/L BUN (7-17) mg/dL Glucose (74-99) mg/dL POC Glucose (mg/dL) 123 H 151 H 187 H (70-110) mg/dL Calcium (8.4-10.2) mg/dL 06/01/22 06/01/22 06/01/22 Range/Units 06:35 08:08 08:08 RBC 3.53 L (3.80-5.40) m/uL Hgb 9.9 L (11.4-16.0) gm/dL Hct 33.2 L (34.0-46.0) % MCHC 30.0 L (31.0-37.0) g/dL RDW 16.7 H (11.5-15.5) % Plt Count 453 H (150-450) k/uL Neutrophils # 9.2 H (1.3-7.7) k/uL Lymphocytes # 0.3 L (1.0-4.8) k/uL Sodium 132 L (137-145) mmol/L BUN 19 H (7-17) mg/dL Glucose 158 H (74-99) mg/dL POC Glucose (mg/dL) 166 H (70-110) mg/dL Calcium 7.9 L (8.4-10.2) mg/dL 06/01/22 Range/Units 11:29 RBC (3.80-5.40) m/uL Hgb (11.4-16.0) gm/dL Hct (34.0-46.0) % MCHC (31.0-37.0) g/dL RDW (11.5-15.5) % Plt Count (150-450) k/uL Neutrophils # (1.3-7.7) k/uL Lymphocytes # (1.0-4.8) k/uL Sodium (137-145) mmol/L BUN (7-17) mg/dL Glucose (74-99) mg/dL POC Glucose (mg/dL) 192 H (70-110) mg/dL Calcium (8.4-10.2) mg/dL Microbiology - Last 24 Hours (Table) 05/31/22 Unknown Wound Culture - Preliminary Groin 05/31/22 Unknown Anaerobic Culture - Preliminary Groin 05/25/22 14:29 Blood Culture - Final Blood No Growth after 144 hours 05/25/22 14:29 Blood Culture - Final Blood No Growth after 144 hours Assessment and Plan (1) Right groin wound Current Visit: Yes Status: Acute Code(s): S31.109A - UNSP OPN WND ABD WALL, UNSP Q W/O PENET PERIT CAV, INIT SNOMED Code(s): 511970486 (2) Soft tissue radionecrosis Current Visit: No Status: Acute Priority: High Code(s): L59.8 - OTH DISRD OF THE SKIN, SUBCU RELATED TO RADIATION; Y84.2 - RADIOLOG PROC/RADIOTHRPY CAUSE ABN REACT/COMPL, W/O MISADVNT SNOMED Code(s): 29022820 Plan: 1patient with extensive wound to the right groin and lower abdominal pannus with necrotic tissue foul-smelling concerning for underlying deep infection and will need to cover for both gram-positive skin brien as well as gram-negative pathogen. 2patient is status post extensive right groin and abdominal debridement and deep cultures with evidence of necrotizing infection and significantly deep wound 3patient initial culture with ESBL Klebsiella, repeat cultures currently pen ding patient to continue with vancomycin and meropenem currently waiting for transfer to tertiary care because of extensive nature of her wound Time with Patient: Less than 30
[2022-06-01 16:25] LABS: Glucose,Whole Blood 178 mg/dL (70-110)
[2022-06-01] MEDS: HYDROcodone/APAP 7.5-325MG 1 EACH TAB PO PRN (16:50)
--- NOTE | 2022-06-01 18:41 | P.PN ---
Subjective Progress Note Date: 06/01/22 61-year-old female with a past medical history significant for ovarian cancer for the patient has received chemoradiation therapy, also history of diabetes mellitus hypertension hypothyroidism patient was recently admitted at this facility from May 19 through the and has been evaluated and management for CVA patient also have a right groin wound that was managed by the wound care team, patient was discharged to the half-way however the patient has been sent back to the ER within 24 hours concerning for the necrotic wounds and cellulitis patient currently denies having any fever or any chills patient be complaining of pain to the right groin wound area examined to be more of a sharp in nature about 7-8 out of 10 with no radiation and some controlled with the pain medication in the form of [place] patient complaining of some foul-smelling drainage and apparently has been getting worse for the last few days, patient on presentation to the hospital was afebrile no fever have been recorded subsequently patient did have a normal white count kidney function has been normal patient was started on vancomycin and Zosyn infectious disease and general surgery was consulted for further management of antibiotic therapy -- Patient is postop day #1 status post sharp excisional debridement of complex right groin/pubis wound 48 x 10 x 5 cm (over 500 cm) to fascia and subcutaneous tissue. Mechanical debridement using Pulsavac lavage 3 L normal saline solution with high pressure water jet. General surgery on board and recommending referral to tertiary center for additional extensive debridement and soft tissue coverage with possible flap due to complexity of the wound and large soft tissue defect; patient need further evaluation and treatment by plastic surgeon -- Transfer center approached at [facility]; patient discussed in great detail with Dr. Bryan; patient is accepted at [facility] pending bed opening Objective - Vital Signs Vital signs: Vital Signs Temp 97.9 F 06/01/22 10:39 Pulse 76 06/01/22 10:39 Resp 18 06/01/22 10:39 BP 127/59 06/01/22 10:39 Pulse Ox 97 06/01/22 10:39 FiO2 Intake & Output 05/31/22 06/01/22 06/01/22 18:59 06:59 18:59 Intake Total 850 0 180 Output Total 450 100 Balance 850 -450 80 Weight 141.521 kg Intake: IV 850 0 Oral 180 Output: Urine 400 100 Estimated Blood Loss 50 Other: Voiding Method Diaper Indwelling Catheter # Voids 4 - Exam EYES: Pupils equal. Conjunctiva normal. HEENT: External appearance of nose and ears normal, oral cavity grossly normal. NECK: JVD unable to assess; masses not palpable. HEART: Heart sounds irregular; no edema. LUNGS: Respiratory rate normal; distant breath sound. shallow respirations ABDOMEN: Soft, nontender, liver spleen not palpable, no masses palpable. Right groin/panus wound necrotic, draining covered with abd. Foul odor. PSYCH: Alert and oriented x3; mood and affect a bit low MUSCULOSKELETAL:No Clubbing/cyanosis;muscles-grossly intact, evidence of OA DERMATOLOGICAL:/ wounds. Strong order. More detailed in nursing notes NEUROLOGICAL: Slurred speech. Power and sensation grossly intact. Mouth slightly pulled to the left - Labs CBC & Chem 7: 06/01/22 08:08 06/01/22 08:08 Labs: Abnormal Lab Results - Last 24 Hours (Table) 05/31/22 05/31/22 05/31/22 Range/Units 16:44 19:59 21:13 RBC (3.80-5.40) m/uL Hgb (11.4-16.0) gm/dL Hct (34.0-46.0) % MCHC (31.0-37.0) g/dL RDW (11.5-15.5) % Plt Count (150-450) k/uL Neutrophils # (1.3-7.7) k/uL Lymphocytes # (1.0-4.8) k/uL Sodium (137-145) mmol/L BUN (7-17) mg/dL Glucose (74-99) mg/dL POC Glucose (mg/dL) 123 H 151 H 187 H (70-110) mg/dL Calcium (8.4-10.2) mg/dL 06/01/22 06/01/22 06/01/22 Range/Units 06:35 08:08 08:08 RBC 3.53 L (3.80-5.40) m/uL Hgb 9.9 L (11.4-16.0) gm/dL Hct 33.2 L (34.0-46.0) % MCHC 30.0 L (31.0-37.0) g/dL RDW 16.7 H (11.5-15.5) % Plt Count 453 H (150-450) k/uL Neutrophils # 9.2 H (1.3-7.7) k/uL Lymphocytes # 0.3 L (1.0-4.8) k/uL Sodium 132 L (137-145) mmol/L BUN 19 H (7-17) mg/dL Glucose 158 H (74-99) mg/dL POC Glucose (mg/dL) 166 H (70-110) mg/dL Calcium 7.9 L (8.4-10.2) mg/dL 06/01/22 Range/Units 11:29 RBC (3.80-5.40) m/uL Hgb (11.4-16.0) gm/dL Hct (34.0-46.0) % MCHC (31.0-37.0) g/dL RDW (11.5-15.5) % Plt Count (150-450) k/uL Neutrophils # (1.3-7.7) k/uL Lymphocytes # (1.0-4.8) k/uL Sodium (137-145) mmol/L BUN (7-17) mg/dL Glucose (74-99) mg/dL POC Glucose (mg/dL) 192 H (70-110) mg/dL Calcium (8.4-10.2) mg/dL Microbiology - Last 24 Hours (Table) 05/31/22 Unknown Wound Culture - Preliminary Groin 05/31/22 Unknown Anaerobic Culture - Preliminary Groin 05/25/22 14:29 Blood Culture - Final Blood No Growth after 144 hours 05/25/22 14:29 Blood Culture - Final Blood No Growth after 144 hours Assessment and Plan Assessment: --Multiple superficial wounds in the area of the groin and panus. Including drainage and malodorous. Large necrotic wound.: Slow to respond Patient is status post debridement and wound VAC by Dr. Kasper. IV meropenem and vancomycin. Eliquis held. Infectious disease on consult. Following cultures. -Acute stroke in the left [place]ohn[place] radiata on the posterior aspect of the left frontal lobe. suspected to be embolic from underlying paroxysmal atrial fibrillation, on 05/18/2022 Eliquis. No aspirin. Resume eliquis as soon as possible after debridement when cleared by surgery to resume. -Paroxysmal atrial fibrillation: Rate controlled eliquis-held. Coreg 25 mg twice a day. Cardizem CD 180 mg a day. Digoxin -Acute dysphagia from underlying stroke : Chopped diet -Morbid obesity BMI 48.9 Weight loss measures -GERD Prilosec 20 mg -Hypertensive heart disease Coreg 25 mg twice a day. Cardizem CD 180 mg a day. -Essential hypertension Coreg 25 mg twice a day, Cardizem LA 180 mg a day -Chronic urinary stress incontinence Ditropan XL 10 mg a day -Hypothyroid Synthroid 200 g a day -Chronic gait dysfunction Uses a cane/walker at baseline
[2022-06-01 19:21] VITALS: BP 124/60; PULSE 74; RESP 12; TEMP 97.6
[2022-06-02] MEDS ORDERED: VANCOMYCIN 1,500 MG in SODIUM CHLORIDE 0.9% 250 ML IVPB SCH (05:00)
[2022-06-04] MEDS ORDERED: VANCOMYCIN TROUGH DUE 1 EACH MISC MISCELLANE ONE (04:00)
== END 2022-06-01 20:52 | disposition home or self-care (01) | DRG 464 ==
LOC: EC 13:53 → 5NMEDONC 15:48 → 3SCARD 05-29 12:23
PROVIDERS: ADMIT Hospitalist; ATTEND Hospitalist
PROC: 0JDC0ZZ Extraction of Pelvic Region Subcutaneous Tissue and Fascia, Open Approach (ICD-10-PCS; 2022-05-31)
PROC: 0JBC0ZZ Excision of Pelvic Region Subcutaneous Tissue and Fascia, Open Approach (ICD-10-PCS; principal; 2022-05-31 16:45)
DX: M72.6 Necrotizing fasciitis (principal); B37.89 Other sites of candidiasis; E11.52 Type 2 diabetes mellitus with diabetic peripheral angiopathy with gangrene; Z68.42 Body mass index [BMI] 45.0-49.9, adult; Z16.11 Resistance to penicillins; Z16.12 Extended spectrum beta lactamase (ESBL) resistance; Z16.29 Resistance to other single specified antibiotic; E66.01 Morbid (severe) obesity due to excess calories; E03.9 Hypothyroidism, unspecified; E11.319 Type 2 diabetes mellitus with unspecified diabetic retinopathy without macular edema; I78.8 Other diseases of capillaries; F32.A Depression, unspecified; I11.9 Hypertensive heart disease without heart failure; C55 Malignant neoplasm of uterus, part unspecified; I08.1 Rheumatic disorders of both mitral and tricuspid valves; K76.0 Fatty (change of) liver, not elsewhere classified; I69.391 Dysphagia following cerebral infarction; E65 Localized adiposity; L59.8 Other specified disorders of the skin and subcutaneous tissue related to radiation; B96.1 Klebsiella pneumoniae [K. pneumoniae] as the cause of diseases classified elsewhere; Z53.9 Procedure and treatment not carried out, unspecified reason; K21.9 Gastro-esophageal reflux disease without esophagitis; E78.5 Hyperlipidemia, unspecified; M79.3 Panniculitis, unspecified; G89.29 Other chronic pain; Y84.2 Radiological procedure and radiotherapy as the cause of abnormal reaction of the patient, or of later complication, without mention of misadventure at the time of the procedure; Y78.1 Therapeutic (nonsurgical) and rehabilitative radiological devices associated with adverse incidents; M54.50 Low back pain, unspecified; R47.1 Dysarthria and anarthria; R47.81 Slurred speech; I48.0 Paroxysmal atrial fibrillation; I25.10 Atherosclerotic heart disease of native coronary artery without angina pectoris; L98.493 Non-pressure chronic ulcer of skin of other sites with necrosis of muscle; N39.3 Stress incontinence (female) (male); R26.9 Unspecified abnormalities of gait and mobility; Z85.43 Personal history of malignant neoplasm of ovary; Z79.01 Long term (current) use of anticoagulants; Z92.3 Personal history of irradiation; Z79.890 Hormone replacement therapy; Z79.84 Long term (current) use of oral hypoglycemic drugs; Z90.89 Acquired absence of other organs; Z79.4 Long term (current) use of insulin; Z88.8 Allergy status to other drugs, medicaments and biological substances; Z87.891 Personal history of nicotine dependence; Z92.21 Personal history of antineoplastic chemotherapy; Z87.440 Personal history of urinary (tract) infections; Z87.81 Personal history of (healed) traumatic fracture; Z79.899 Other long term (current) drug therapy; Z98.890 Other specified postprocedural states; Z80.1 Family history of malignant neoplasm of trachea, bronchus and lung; Z81.2 Family history of tobacco abuse and dependence; Z82.49 Family history of ischemic heart disease and other diseases of the circulatory system
CPT/HCPCS: 36410; 36415; 71045; 73502; 76937; 80048; 80053; 80202; 82565; 83036; 83605; 85025; 85027; 85610; 85730; 87040; 87070; 87075; 87077; 87186; 87205; 88304; 93005; 96365; 99284

== ENCOUNTER 2022-06-21 21:48 | Inpatient (IN) | payer MEDICARE, OTHER ==
[2022-06-21] MEDS ORDERED: SODIUM CHLORIDE 0.9% 1,000 ML IV STA (22:17)
[2022-06-21 22:35] LABS: Anisocytosis Slight; Basophils % (A) 0 %; Eosinophils # (A) 0.1 k/uL (0-0.7); Eosinophils % (A) 2 %; HCT 25.1 % (34.0-46.0); Hypochromasia Marked; Lymphocytes # (A) 0.3 k/uL (1.0-4.8); Lymphocytes % (A) 4 %; MCH 30.4 pg (25.0-35.0); MCHC 32.1 g/dL (31.0-37.0); MCV 94.7 fL (80.0-100.0); Mean Platelet Volume 7.5; Monocytes # (A) 0.5 k/uL (0-1.0); Monocytes % (A) 6 %; Neutrophils # (A) 6.6 k/uL (1.3-7.7); Neutrophils % (A) 86 %; Platelet Count 348 k/uL (150-450); Poikilocytosis Slight; RBC 2.65 m/uL (3.80-5.40); RDW 17.8 % (11.5-15.5); WBC 7.7 k/uL (3.8-10.6)
[2022-06-21 22:46] LABS: INR 1.3 (<1.2); Partial Thromboplastin Time 35.3 sec (22.0-30.0); Prothrombin Time 13.4 sec (9.0-12.0)
--- NOTE | 2022-06-21 23:13 | ED ---
Dizziness HPI - General Chief Complaint: Syncope Stated Complaint: Lethargic Time Seen by Provider: 06/21/22 22:07 Source: EMS, RN notes reviewed, old records reviewed Mode of arrival: EMS Limitations: no limitations - History of Present Illness Initial Comments: This is a 62-year-old female DEL with syncopal syncopal event. Patient chest pain shortness of breath or abdominal pain. Had episode of vomiting. Does have prolonged medical history significant currently she is without complaint MD Complaint: dizziness, lightheadedness -: minutes(s) Timing: sudden onset Description: near-syncope History of Same: Yes History of Trauma: No Severity: moderate Improves With: nothing Worsens With: nothing Associated Symptoms: loss of appetite, weakness - Related Data Home Medications Medication Instructions Recorded Confirmed Levothyroxine Sodium 200 mcg PO DAILY@0800 10/10/21 06/22/22 Nitroglycerin Sl Tabs [Nitrostat] 0.4 mg SL Q5M PRN 10/10/21 06/22/22 Omeprazole Magnesium [PriLOSEC OTC] 20 mg PO HS@199905/18/22 06/22/22 Oxybutynin ER [Ditropan Xl] 10 mg PO DAILY@79905/18/22 06/22/22 carvediloL [Coreg] 25 mg PO BID@0800,1600 05/18/22 06/22/22 dilTIAZem HCL [Cardizem LA] 180 mg PO DAILY@00 05/18/22 06/22/22 metFORMIN HCL ER [Glucophage XR] 500 mg PO TID@0800,1200,1800 05/18/22 06/22/22 Acetaminophen Tab [Tylenol] 650 mg PO Q4H PRN 06/22/22 06/22/22 Acetaminophen/Diphenhydramine 2 tab PO HS PRN 06/22/22 06/22/22 [Tylenol PM 500-25mg] Apixaban [Eliquis] 5 mg PO BID@0800,1600 06/22/22 06/22/22 Atorvastatin [Lipitor] 40 mg PO HS@199906/22/22 06/22/22 Digoxin [Lanoxin] 250 mcg PO DAILY@0800 06/22/22 06/22/22 Docusate [Colace] 100 mg PO BID@0800,1600 06/22/22 06/22/22 Ensure 1 can PO BID@0800,1600 06/22/22 06/22/22 HYDROcodone/APAP 10-325MG [Coral 1 tab PO Q4HR PRN 06/22/22 06/22/22 10-325] Insulin Lispro [humaLOG Kwikpen] See Protocol SQ ACHS 06/22/22 06/22/22 Nystatin 100,000 Unit/gm Powd 1 applic TOPICAL BID@0800,1600 06/22/22 06/22/22 [Mycostatin Powder] Pro Stat 1 can PO BID@0800,1600 06/22/22 06/22/22 oxyCODONE HCL 5 mg PO DAILY PRN 06/22/22 06/22/22 polyethylene glycoL 3350 17 gm PO DAILY@0800 06/22/22 06/22/22 [Polyethylene Glycol 3350] Allergies Allergy/AdvReac Type Severity Reaction Status Date / Time apixaban [From Eliquis] AdvReac Unsure, Verified 06/22/22 07:12 told by Proposal Engineer not to take Review of Systems ROS Statement: Those systems with pertinent positive or pertinent negative responses have been documented in the HPI. ROS Other: All systems not noted in ROS Statement are negative. Past Medical History Past Medical History: Atrial Fibrillation, Cancer, Diabetes Mellitus, GERD/Reflux, Hypertension, Thyroid Disorder Additional Past Medical History / Comment(s): Pt states she has had intermittent vaginal bleeding over past one year, NIDDM type II, UTIs, hypothyroid, chronic low back pain, occasional bilateral leg pain at night. Ovarian cancer with chemo and radiation. History of Any Multi-Drug Resistant Organisms: ESBL Date of last positivie culture/infection: 05/31/22 ESBL MDRO Source:: Groin Past Surgical History: Heart Catheterization, Tonsillectomy, Uterine Ablation Additional Past Surgical History / Comment(s): Nasal fracture with surgery, wisdom teeth extractions. Past Anesthesia/Blood Transfusion Reactions: Postoperative Nausea & Vomiting (PONV) Additional Past Anesthesia/Blood Transfusion Reaction / Comment(s): Pt received blood this hospitalization without reaction. Past Psychological History: Depression Smoking Status: Former smoker Past Alcohol Use History: None Reported Past Drug Use History: None Reported - Past Family History Father Family Medical History: Cancer Additional Family Medical History / Comment(s): Father of lung cancer. He was a smoker. Mother Family Medical History: Vascular Disorder Additional Family Medical History / Comment(s): Mother of a cerebral aneurysm at the age of 58 yrs. General Exam Limitations: no limitations General appearance: alert, in no apparent distress Head exam: Present: atraumatic, normocephalic, normal inspection Eye exam: Present: normal appearance, PERRL, EOMI. Absent: scleral icterus, conjunctival injection, periorbital swelling ENT exam: Present: normal exam, mucous membranes moist Neck exam: Present: normal inspection. Absent: tenderness, meningismus, lymphadenopathy Respiratory exam: Present: normal lung sounds bilaterally. Absent: respiratory distress, wheezes, rales, rhonchi, stridor Cardiovascular Exam: Present: regular rate, normal rhythm, normal heart sounds. Absent: systolic murmur, diastolic murmur, rubs, gallop, clicks GI/Abdominal exam: Present: soft, normal bowel sounds. Absent: distended, tenderness, guarding, rebound, rigid Extremities exam: Present: normal inspection, full ROM, normal capillary refill. Absent: tenderness, pedal edema, joint swelling, calf tenderness Back exam: Present: normal inspection Neurological exam: Present: alert, oriented X3, CN II-XII intact Psychiatric exam: Present: normal affect, normal mood Skin exam: Present: warm, dry, intact, normal color. Absent: rash Course Vital Signs 06/21/22 06/21/22 06/21/22 21:53 22:03 22:30 Temperature 97.6 F 98.2 F Pulse Rate 61 56 L 54 L Respiratory 16 20 10 L Rate Blood Pressure 97/51 97/51 O2 Sat by Pulse 98 97 Oximetry 06/21/22 06/21/22 06/22/22 23:00 23:30 00:00 Temperature Pulse Rate 56 L 52 L 56 L Respiratory 14 10 L 17 Rate Blood Pressure 87/46 99/45 88/41 O2 Sat by Pulse 96 Oximetry 06/22/22 06/22/22 06/22/22 00:03 00:30 01:00 Temperature Pulse Rate 54 L 130 H 51 L Respiratory 18 20 14 Rate Blood Pressure 116/95 116/95 87/49 O2 Sat by Pulse 98 98 96 Oximetry 06/22/22 06/22/22 06/22/22 01:30 01:40 02:00 Temperature Pulse Rate 56 L 55 L 48 L Respiratory 14 20 8 L Rate Blood Pressure 90/54 93/66 93/66 O2 Sat by Pulse 97 98 98 Oximetry 06/22/22 02:12 Temperature Pulse Rate 52 L Respiratory 16 Rate Blood Pressure 107/95 O2 Sat by Pulse 98 Oximetry - Reevaluation(s) Reevaluation #1: Medical record is reviewed Patient feels improved here in the emergency department Patient feels comfortable for discharge EKG Findings - EKG Comments: EKG Findings:: EKG is A. fib 60 QRS 117 QTC is 395 Medical Decision Making - Medical Decision Making 62 female after syncopal event. No acute damage found, no acute cause found. Patient will be admitted for observation - Lab Data Result diagrams: 06/30/22 06:19 06/30/22 06:19 Lab Results 06/21/22 06/21/22 06/21/22 Range/Units 22:24 22:24 22:24 WBC 7.7 (3.8-10.6) k/uL RBC 2.65 L (3.80-5.40) m/uL Hgb 8.0 L D (11.4-16.0) gm/dL Hct 25.1 L (34.0-46.0) % MCV 94.7 (80.0-100.0) fL MCH 30.4 (25.0-35.0) pg MCHC 32.1 (31.0-37.0) g/dL RDW 17.8 H (11.5-15.5) % Plt Count 348 (150-450) k/uL MPV 7.5 Neutrophils % 86 % Lymphocytes % 4 % Monocytes % 6 % Eosinophils % 2 % Basophils % 0 % Neutrophils # 6.6 (1.3-7.7) k/uL Lymphocytes # 0.3 L (1.0-4.8) k/uL Monocytes # 0.5 (0-1.0) k/uL Eosinophils # 0.1 (0-0.7) k/uL Basophils # 0.0 (0-0.2) k/uL Hypochromasia Marked Poikilocytosis Slight Anisocytosis Slight PT 13.4 H (9.0-12.0) sec INR 1.3 H (<1.2) APTT 35.3 H (22.0-30.0) sec Sodium 130 L (137-145) mmol/L Potassium 4.7 (3.5-5.1) mmol/L Chloride 97 L (98-107) mmol/L Carbon Dioxide 23 (22-30) mmol/L Anion Gap 10 mmol/L BUN 37 H (7-17) mg/dL Creatinine 1.92 H (0.52-1.04) mg/dL Est GFR (CKD-EPI)AfAm 32 (>60 ml/min/1.73 sqM) Est GFR (CKD-EPI)NonAf 27 (>60 ml/min/1.73 sqM) Glucose 111 H (74-99) mg/dL POC Glucose (mg/dL) (70-110) mg/dL POC Glu Insole Tape Stitcher U[employer] ID Estimated Ave Glu mg/dL Hemoglobin A1c (0.0-6.0) % Plasma Lactic Acid James (0.7-2.0) mmol/L Calcium 7.6 L (8.4-10.2) mg/dL Phosphorus 3.9 (2.5-4.5) mg/dL Magnesium 1.5 L (1.6-2.3) mg/dL Total Bilirubin 1.2 (0.2-1.3) mg/dL AST 145 H (14-36) U/L ALT 42 H (4-34) U/L Alkaline Phosphatase 341 H (38-126) U/L Troponin I (0.000-0.034) ng/mL Total Protein 4.8 L (6.3-8.2) g/dL Albumin 2.1 L (3.5-5.0) g/dL Lipase (23-300) U/L Urine Color Urine Appearance (Clear) Urine pH (5.0-8.0) Ur Specific [place] (1.001-1.035) Urine Protein (Negative) Urine Glucose (UA) (Negative) Urine Ketones (Negative) Urine Blood (Negative) Urine Nitrite (Negative) Urine Bilirubin (Negative) Urine Urobilinogen (<2.0) mg/dL Ur Leukocyte Esterase (Negative) Urine RBC (0-5) /hpf Urine WBC (0-5) /hpf Ur Squamous Epith Cells (0-4) /hpf Granular Casts (0) /lpf Urine Mucus (None) /hpf 06/21/22 06/21/22 06/21/22 Range/Units 22:24 22:24 22:24 WBC (3.8-10.6) k/uL RBC (3.80-5.40) m/uL Hgb (11.4-16.0) gm/dL Hct (34.0-46.0) % MCV (80.0-100.0) fL MCH (25.0-35.0) pg MCHC (31.0-37.0) g/dL RDW (11.5-15.5) % Plt Count (150-450) k/uL MPV Neutrophils % % Lymphocytes % % Monocytes % % Eosinophils % % Basophils % % Neutrophils # (1.3-7.7) k/uL Lymphocytes # (1.0-4.8) k/uL Monocytes # (0-1.0) k/uL Eosinophils # (0-0.7) k/uL Basophils # (0-0.2) k/uL Hypochromasia Poikilocytosis Anisocytosis PT (9.0-12.0) sec INR (<1.2) APTT (22.0-30.0) sec Sodium (137-145) mmol/L Potassium (3.5-5.1) mmol/L Chloride (98-107) mmol/L Carbon Dioxide (22-30) mmol/L Anion Gap mmol/L BUN (7-17) mg/dL Creatinine (0.52-1.04) mg/dL Est GFR (CKD-EPI)AfAm (>60 ml/min/1.73 sqM) Est GFR (CKD-EPI)NonAf (>60 ml/min/1.73 sqM) Glucose (74-99) mg/dL POC Glucose (mg/dL) (70-110) mg/dL POC Glu Insole Tape Stitcher Uco ID Estimated Ave Glu mg/dL Hemoglobin A1c (0.0-6.0) % Plasma Lactic Acid James 1.1 (0.7-2.0) mmol/L Calcium (8.4-10.2) mg/dL Phosphorus (2.5-4.5) mg/dL Magnesium (1.6-2.3) mg/dL Total Bilirubin (0.2-1.3) mg/dL AST (14-36) U/L ALT (4-34) U/L Alkaline Phosphatase (38-126) U/L Troponin I 0.023 (0.000-0.034) ng/mL Total Protein (6.3-8.2) g/dL Albumin (3.5-5.0) g/dL Lipase 16 L (23-300) U/L Urine Color Urine Appearance (Clear) Urine pH (5.0-8.0) Ur Specific [place] (1.001-1.035) Urine Protein (Negative) Urine Glucose (UA) (Negative) Urine Ketones (Negative) Urine Blood (Negative) Urine Nitrite (Negative) Urine Bilirubin (Negative) Urine Urobilinogen (<2.0) mg/dL Ur Leukocyte Esterase (Negative) Urine RBC (0-5) /hpf Urine WBC (0-5) /hpf Ur Squamous Epith Cells (0-4) /hpf Granular Casts (0) /lpf Urine Mucus (None) /hpf 06/21/22 06/21/22 06/22/22 Range/Units 22:24 22:29 04:52 WBC (3.8-10.6) k/uL RBC (3.80-5.40) m/uL Hgb (11.4-16.0) gm/dL Hct (34.0-46.0) % MCV (80.0-100.0) fL MCH (25.0-35.0) pg MCHC (31.0-37.0) g/dL RDW (11.5-15.5) % Plt Count (150-450) k/uL MPV Neutrophils % % Lymphocytes % % Monocytes % % Eosinophils % % Basophils % % Neutrophils # (1.3-7.7) k/uL Lymphocytes # (1.0-4.8) k/uL Monocytes # (0-1.0) k/uL Eosinophils # (0-0.7) k/uL Basophils # (0-0.2) k/uL Hypochromasia Poikilocytosis Anisocytosis PT (9.0-12.0) sec INR (<1.2) APTT (22.0-30.0) sec Sodium (137-145) mmol/L Potassium (3.5-5.1) mmol/L Chloride (98-107) mmol/L Carbon Dioxide (22-30) mmol/L Anion Gap mmol/L BUN (7-17) mg/dL Creatinine (0.52-1.04) mg/dL Est GFR (CKD-EPI)AfAm (>60 ml/min/1.73 sqM) Est GFR (CKD-EPI)NonAf (>60 ml/min/1.73 sqM) Glucose (74-99) mg/dL POC Glucose (mg/dL) (70-110) mg/dL POC Glu Insole Tape Stitcher U[employer] ID Estimated Ave Glu mg/dL 144 Hemoglobin A1c 6.7 H (0.0-6.0) % Plasma Lactic Acid James (0.7-2.0) mmol/L Calcium (8.4-10.2) mg/dL Phosphorus (2.5-4.5) mg/dL Magnesium (1.6-2.3) mg/dL Total Bilirubin (0.2-1.3) mg/dL AST (14-36) U/L ALT (4-34) U/L Alkaline Phosphatase (38-126) U/L Troponin I 0.023 (0.000-0.034) ng/mL Total Protein (6.3-8.2) g/dL Albumin (3.5-5.0) g/dL Lipase (23-300) U/L Urine Color Dark Yellow Urine Appearance Cloudy H (Clear) Urine pH 5.5 (5.0-8.0) Ur Specific [place] 1.027 (1.001-1.035) Urine Protein 1+ H (Negative) Urine Glucose (UA) Negative (Negative) Urine Ketones Negative (Negative) Urine Blood Negative (Negative) Urine Nitrite Negative (Negative) Urine Bilirubin 1+ H (Negative) Urine Urobilinogen 6.0 (<2.0) mg/dL Ur Leukocyte Esterase Large H (Negative) Urine RBC 5 (0-5) /hpf Urine WBC 35 H (0-5) /hpf Ur Squamous Epith Cells 3 (0-4) /hpf Granular Casts 4 (0) /lpf Urine Mucus Occasional H (None) /hpf 06/22/22 06/22/22 Range/Units 07:34 11:54 WBC (3.8-10.6) k/uL RBC (3.80-5.40) m/uL Hgb (11.4-16.0) gm/dL Hct (34.0-46.0) % MCV (80.0-100.0) fL MCH (25.0-35.0) pg MCHC (31.0-37.0) g/dL RDW (11.5-15.5) % Plt Count (150-450) k/uL MPV Neutrophils % % Lymphocytes % % Monocytes % % Eosinophils % % Basophils % % Neutrophils # (1.3-7.7) k/uL Lymphocytes # (1.0-4.8) k/uL Monocytes # (0-1.0) k/uL Eosinophils # (0-0.7) k/uL Basophils # (0-0.2) k/uL Hypochromasia Poikilocytosis Anisocytosis PT (9.0-12.0) sec INR (<1.2) APTT (22.0-30.0) sec Sodium (137-145) mmol/L Potassium (3.5-5.1) mmol/L Chloride (98-107) mmol/L Carbon Dioxide (22-30) mmol/L Anion Gap mmol/L BUN (7-17) mg/dL Creatinine (0.52-1.04) mg/dL Est GFR (CKD-EPI)AfAm (>60 ml/min/1.73 sqM) Est GFR (CKD-EPI)NonAf (>60 ml/min/1.73 sqM) Glucose (74-99) mg/dL POC Glucose (mg/dL) 142 H (70-110) mg/dL POC Glu Insole Tape Stitcher [employer]co ID [address] Estimated [address] Glu mg/dL Hemoglobin A1c (0.0-6.0) % Plasma Lactic Acid James (0.7-2.0) mmol/L Calcium (8.4-10.2) mg/dL Phosphorus (2.5-4.5) mg/dL Magnesium (1.6-2.3) mg/dL Total Bilirubin (0.2-1.3) mg/dL AST (14-36) U/L ALT (4-34) U/L Alkaline Phosphatase (38-126) U/L Troponin I 0.024 (0.000-0.034) ng/mL Total Protein (6.3-8.2) g/dL Albumin (3.5-5.0) g/dL Lipase (23-300) U/L Urine Color Urine Appearance (Clear) Urine pH (5.0-8.0) Ur Specific [place] (1.001-1.035) Urine Protein (Negative) Urine Glucose (UA) (Negative) Urine Ketones (Negative) Urine Blood (Negative) Urine Nitrite (Negative) Urine Bilirubin (Negative) Urine Urobilinogen (<2.0) mg/dL Ur Leukocyte Esterase (Negative) Urine RBC (0-5) /hpf Urine WBC (0-5) /hpf Ur Squamous Epith Cells (0-4) /hpf Granular Casts (0) /lpf Urine Mucus (None) /hpf Disposition Clinical Impression: Vasovagal syncope, Syncope, Anemia, Weakness Disposition: ADMITTED IP TO THIS [facility] Condition: Poor Is patient prescribed a controlled substance at d/c from ED?: No
[2022-06-21 23:24] LABS: Appearance,Urine Cloudy (Clear); Bilirubin,Urine 1+ (Negative); Blood,Urine Negative (Negative); Color,Urine Dark Yellow; Glucose,Urine (UA) Negative (Negative); Granular Casts,Urine 4 /lpf (0); Ketones,Urine Negative (Negative); Leukocyte Esterase,Urine Large (Negative); Mucus,Urine Occasional /hpf; Nitrite,Urine Negative (Negative); PH, Urine 5.5 (5.0-8.0); Protein,Urine 1+ (Negative); RBC,Urine 5 /hpf (0-5); Specific Gravity,Urine 1.027 (1.001-1.035); Squamous Epithelial Cell,Urine 3 /hpf (0-4); WBC,Urine 35 /hpf (0-5)
[2022-06-21 23:50] LABS: Albumin 2.1 g/dL (3.5-5.0); Calcium 7.6 mg/dL (8.4-10.2); Magnesium 1.5 mg/dL (1.6-2.3); Phosphorus 3.9 mg/dL (2.5-4.5); Potassium 4.7 mmol/L (3.5-5.1); Total Bilirubin 1.2 mg/dL (0.2-1.3); Total Protein 4.8 g/dL (6.3-8.2)
[2022-06-22] MEDS ORDERED: NALOXONE 0.4 MG/ML 1 ML VIAL IV PRN (01:27)
[2022-06-22] MEDS ORDERED: ONDANSETRON 4 MG/2 ML VIAL IVP PRN (01:27)
[2022-06-22] MEDS ORDERED: SODIUM CHLORIDE 0.9% 1,000 ML IV SCH (01:30)
--- NOTE | 2022-06-22 08:26 | US ---
EXAMINATION TYPE: US gallbladder DATE OF EXAM: 06/22/2022 COMPARISON: CLINICAL HISTORY: ams. pain, poor historian TECHNIQUE: Multiple sonographic images of the right upper quadrant are obtained. FINDINGS: EXAM MEASUREMENTS: Liver Length: 19.8 cm Gallbladder Wall: 0.3 cm CBD: 0.7 cm Right Kidney: 11.5 x 5.2 x 5.4 cm PIPE MAKER NOTES:Limited due to patient body habitus Pancreas: Head and tail not well visualized Liver: Enlarged and heterogenous Gallbladder: Enlarged in size. Stones and sludge seen. Patient unable to turn LLD. Evidence for sonographic Rocha's sign: neg CBD: wnl Right Kidney: No hydronephrosis or masses seen IMPRESSION: 1. Hepatomegaly with underlying probable hepatic steatosis. 2. Cholelithiasis with gallbladder sludge and gallbladder hydrops. Common bile duct is mildly promine nt as well.
[2022-06-22] MEDS ORDERED: NITROGLYCERIN SL TABS 0.4 MG TAB SUBLINGUAL PRN (09:24)
[2022-06-22] MEDS ORDERED: DEXTROSE 50% SYRINGE 50 ML IVP PRN ×2 (09:27)
[2022-06-22] MEDS: OXYBUTYNIN 10 MG TAB.ER.24 PO SCH (10:57)
[2022-06-22] MEDS: LEVOTHYROXINE 100 MCG TAB PO SCH (10:57)
[2022-06-22] MEDS: carvediloL 6.25 MG TAB PO SCH ×2 (10:57→16:49)
[2022-06-22 11:56] LABS: Glucose,Whole Blood 142 mg/dL (70-110)
[2022-06-22] MEDS: HYDROcodone/APAP 10-325MG 1 EACH TAB PO PRN ×3 (11:59→21:25)
[2022-06-22] MEDS: INSULIN ASPART (NovoLOG) 100 UNIT/ML VIAL SQ SCH ×2 (13:47→17:38)
[2022-06-22] MEDS: SODIUM CHLORIDE 0.9% 1,000 ML IV SCH ×2 (13:53→20:33)
--- NOTE | 2022-06-22 15:56 | P.HPIM ---
History of Present Illness H&P Date: 06/22/22 Chief Complaint: Anemia This is a pleasant 62-year-old patient, follows with Dr. Smooth Bob. Chronic stable medical conditions include diabetes, GERD, essential hypertens ion, hypothyroid. Chronic low back pain. Ovarian cancer treatment for chemo and radiation treatment. September 2021 was having significant vaginal bleeding. 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 No metastatic disease. She was not felt to be surgical candidate and was to receive 3 cycles of carboplatin/Taxol followed by radiation and 3 additional cycles of the above. She completed radiation on 03/14/2022. Started back on the carbotaxol April 03 and was status post cycle 6 day 1 on May 16. May 2022: Stroke found in the left coronary radiata on the posterior aspect of left frontal lobe. Was placed on eliquis for atrial fibrillation. On recent admission patient to have a significant wound on the right groin and abdominal pannus. Was seen by Dr. mcdermott from [place] and Dr. Kasper from general surgery. May 31 underwent wound debridement by Dr. Kasper. Cultures were positive for ESBL klebsiella. Covered with vancomycin and meropenem. June 01 patient was transferred to [facility] for further management of deep wounds. Patient now presents here from [facility]. Patient become more lethargic. Difficult to arouse. Hypoxic on room air 82%. Placed on 5 L of o xygen. Patient was vomiting up on arrival of the EMS. Patient states that she is not been eating much. Kidney function is much worse since he has recently. Not eating drinking enough. Wounds are present. Patient rather lethargic during history taking. Tired easily. Patient has been nonambulatory since discharge Review of systems: GEN.: Tired EYES: None HEENT: None NECK: None RESPIRATORY: None CARDIOVASCULAR: None GASTROINTESTINAL: None GENITOURINARY: None MUSCULOSKELETAL: Joint pains LYMPHATICS: None HEMATOLOGICAL: None PSYCHIATRY: Lethargic NEUROLOGICAL: None Past medical history to include: Atrial fibrillation, diabetes, GERD, hypertension, hypothyroid, ovarian cancer with chemo and radiation treatment. Depression. Stroke. Social history: [facility] Patient started smoking as a teenager and stopped in 1994. No alcohol. Family history: Father of lung cancer Physical examination: VITAL SIGNS: 97.6, 61, 16, 97/51, 98% GENERAL: Laying in bed, lethargic, tired EYES: Pupils equal. Conjunctiva normal. HEENT: External appearance of nose and ears normal, oral cavity dry mucous membranes NECK: JVD unable to assess; masses not palpable. HEART: Heart sounds irregular; slight edema. LUNGS: Respiratory rate normal; distant breath sound. ABDOMEN: Soft, nontender, liver spleen not palpable, no masses palpable. Perianal wounds C wound care notes. PSYCH: Able to answer simple questions, lethargic but arousable MUSCULOSKELETAL:No Clubbing/cyanosis;muscles-grossly intact, evidence of OA DERMATOLOGICAL: Deep wound in the abdominal pannus in the right groin. See nursing notes for pictures NEUROLOGICAL: Able to move all 4 limbs. Cranial nerves grossly intact. INVESTIGATIONS, reviewed in the clinical context: White count 7.7 hemoglobin 8 platelets 348 sodium 1:30 potassium 4.7 BUN 37 creatinine 1.9 to AST 145 ALT 42 albumin 2.1 EKG tracing personally reviewed by me-personally reviewed by me: Atrial fibrillation. Rate 60 From recent admission: 06/01/2022: BUN 19 creatinine 0.93 MRI brain without contrast: Acute/subacute CVA of the left coronary radiata on the posterior aspect of the left frontal lobe. Nonspecific white matter changes. CT brain: Mild atrophic CT angiography of the brain: Nonspecific 2-D echocardiogram: EF 55-60%, severe LVH Assessment and plan: -Acute metabolic encephalopathy from acute kidney injury -Acute kidney injury combination of prerenal and ATN. Stop metformin. -Chronic Large wound on the abdominal pannus and right groin May 31 underwent deep wound debrided. By Dr. Kasper. Consultation to ID and general surgery. -Acute stroke in the left [place] radiata on the posterior aspect of the left frontal lobe. suspected to be embolic from underlying paroxysmal atrial fibrillation, on 05/18/2022 Eliquis. No aspirin. -Persistent atrial fibrillation: Rate controlled eliquis. Coreg 6.25 mg twice a day.. [Cardizem CD 180 mg a day. And digitoxin to be held] -Chronic dysphagia from underlying stroke : Chopped diet -Diabetes mellitus type 2 on oral hypoglycemic Hold metformin. Follow Accu-Cheks -Morbid obesity BMI 51.6 Weight loss measures -GERD Prilosec 20 mg -Essential hypertension, currently blood pressure running low Decrease Coreg 6.25 mg twice a day, hold Cardizem -Chronic urinary stress incontinence Ditropan XL 10 mg a day -Hypothyroid Synthroid 200 g a day -Acute on chronic medical debility multifactorial Saline 1 25 mL an hour. Consult general surgery and ID for wound care. Cutback dose of Coreg. Hold digoxin because of acute kidney injury. Oral Cardizem CD. Telemetry. Aspiration precautions. Wound care. Given the complexity and severity of patient's condition expect the patient to be in the hospital at least for 2 overnights Past Medical History Past Medical History: Atrial Fibrillation, Cancer, Diabetes Mellitus, GERD/Reflux, Hypertension, Thyroid Disorder Additional Past Medical History / Comment(s): Pt states she has had intermittent vaginal bleeding over past one year, NIDDM type II, UTIs, hypothyroid, chronic low back pain, occasional bilateral leg pain at night. Ovarian cancer with chemo and radiation. History of Any Multi-Drug Resistant Organisms: ESBL Date of last positivie culture/infection: 05/31/22 ESBL MDRO Source:: Groin Past Surgical History: Heart Catheterization, Tonsillectomy, Uterine Ablation Additional Past Surgical History / Comment(s): Nasal fracture with surgery, wisdom teeth extractions. Past Anesthesia/Blood Transfusion Reactions: Postoperative Nausea & Vomiting (PONV) Additional Past Anesthesia/Blood Transfusion Reaction / Comment(s): Pt received blood this hospitalization without reaction. Past Psychological History: Depression Additional Psychological History / Comment(s): Pt resides alone in an apartment. She uses a walker or cane. She drives. Smoking Status: Former smoker Past Alcohol Use History: None Reported Additional Past Alcohol Use History / Comment(s): PT started smoking as a teen and quit in 1994. Past Drug Use History: None Reported - Past Family History Father Family Medical History: Cancer Additional Family Medical History / Comment(s): Father of lung cancer. He was a smoker. Mother Family Medical History: Vascular Disorder Additional Family Medical History / Comment(s): Mother of a cerebral aneurysm at the age of 58 yrs. Medications and Allergies Home Medications Medication Instructions Recorded Confirmed Type Levothyroxine Sodium 200 mcg PO DAILY@0800 10/10/21 06/22/22 History Nitroglycerin Sl Tabs [Nitrostat] 0.4 mg SL Q5M PRN 10/10/21 06/22/22 History Omeprazole Magnesium [PriLOSEC OTC] 20 mg PO HS@199905/18/22 06/22/22 History Oxybutynin ER [Ditropan Xl] 10 mg PO DAILY@79905/18/22 06/22/22 History carvediloL [Coreg] 25 mg PO BID@0800,1600 05/18/22 06/22/22 History dilTIAZem HCL [Cardizem LA] 180 mg PO DAILY@79905/18/22 06/22/22 History metFORMIN HCL ER [Glucophage XR] 500 mg PO TID@0800,1200,1800 05/18/22 06/22/22 History Acetaminophen Tab [Tylenol] 650 mg PO Q4H PRN 06/22/22 06/22/22 History Acetaminophen/Diphenhydramine 2 tab PO HS PRN 06/22/22 06/22/22 History [Tylenol PM 500-25mg] Apixaban [Eliquis] 5 mg PO BID@0800,1600 06/22/22 06/22/22 History Atorvastatin [Lipitor] 40 mg PO HS@199906/22/22 06/22/22 History Digoxin [Lanoxin] 250 mcg PO DAILY@79906/22/22 06/22/22 History Docusate [Colace] 100 mg PO BID@0800,1600 06/22/22 06/22/22 History Ensure 1 can PO BID@0800,1600 06/22/22 06/22/22 History HYDROcodone/APAP 10-325MG [[place] 1 tab PO Q4HR PRN 06/22/22 06/22/22 History 10-325] Insulin Lispro [humaLOG Kwikpen] See Protocol SQ ACHS 06/22/22 06/22/22 History Nystatin 100,000 Unit/gm Powd 1 applic TOPICAL BID@0800,159906/22/22 06/22/22 History [Mycostatin Powder] Pro Stat 1 can PO BID@0800,1600 06/22/22 06/22/22 History oxyCODONE HCL 5 mg PO DAILY PRN 06/22/22 06/22/22 History polyethylene glycoL 3350 17 gm PO DAILY@0800 06/22/22 06/22/22 History [Polyethylene Glycol 3350] Allergies Allergy/AdvReac Type Severity Reaction Status Date / Time apixaban [From Eliquis] AdvReac Unsure, Verified 06/22/22 07:12 told by [employer] not to take Physical Exam Vitals: Vital Signs Temp Pulse Pulse Resp BP BP Pulse Ox 06/22/22 07:58 98 F 57 L 16 122/70 98 06/22/22 03:05 98.4 F 62 19 97/44 97 06/22/22 02:12 52 L 16 107/95 98 06/22/22 01:40 55 L 20 93/66 98 06/22/22 00:03 54 L 18 116/95 98 06/21/22 22:03 52 L 16 88/57 97 06/21/22 21:53 97.6 F 61 16 97/51 98 Intake and Output 06/21/22 06/22/22 06/22/22 22:59 06:59 14:59 Other: Voiding Method Indwelling Catheter Indwelling Catheter # Voids 1 Weight 145.15 kg 145.15 kg Results CBC & Chem 7: 06/21/22 22:24 06/21/22 22:24 Labs: Abnormal Lab Results - Last 24 Hours (Table) 06/21/22 06/21/22 06/21/22 Range/Units 22:24 22:24 22:24 RBC 2.65 L (3.80-5.40) m/uL Hgb 8.0 L D (11.4-16.0) gm/dL Hct 25.1 L (34.0-46.0) % RDW 17.8 H (11.5-15.5) % Lymphocytes # 0.3 L (1.0-4.8) k/uL PT 13.4 H (9.0-12.0) sec INR 1.3 H (<1.2) APTT 35.3 H (22.0-30.0) sec Sodium 130 L (137-145) mmol/L Chloride 97 L (98-107) mmol/L BUN 37 H (7-17) mg/dL Creatinine 1.92 H (0.52-1.04) mg/dL Glucose 111 H (74-99) mg/dL Calcium 7.6 L (8.4-10.2) mg/dL Magnesium 1.5 L (1.6-2.3) mg/dL AST 145 H (14-36) U/L ALT 42 H (4-34) U/L Alkaline Phosphatase 341 H (38-126) U/L Total Protein 4.8 L (6.3-8.2) g/dL Albumin 2.1 L (3.5-5.0) g/dL Lipase (23-300) U/L Urine Appearance (Clear) Urine Protein (Negative) Urine Bilirubin (Negative) Ur Leukocyte Esterase (Negative) Urine WBC (0-5) /hpf Urine Mucus (None) /hpf 06/21/22 06/21/22 Range/Units 22:24 22:29 RBC (3.80-5.40) m/uL Hgb (11.4-16.0) gm/dL Hct (34.0-46.0) % RDW (11.5-15.5) % Lymphocytes # (1.0-4.8) k/uL PT (9.0-12.0) sec INR (<1.2) APTT (22.0-30.0) sec Sodium (137-145) mmol/L Chloride (98-107) mmol/L BUN (7-17) mg/dL Creatinine (0.52-1.04) mg/dL Glucose (74-99) mg/dL Calcium (8.4-10.2) mg/dL Magnesium (1.6-2.3) mg/dL AST (14-36) U/L ALT (4-34) U/L Alkaline Phosphatase (38-126) U/L Total Protein (6.3-8.2) g/dL Albumin (3.5-5.0) g/dL Lipase 16 L (23-300) U/L Urine Appearance Cloudy H (Clear) Urine Protein 1+ H (Negative) Urine Bilirubin 1+ H (Negative) Ur Leukocyte Esterase Large H (Negative) Urine WBC 35 H (0-5) /hpf Urine Mucus Occasional H (None) /hpf Microbiology - Last 24 Hours (Table) 06/21/22 22:29 Urine Culture - Preliminary Urine,Voided Thrombosis Risk Factor Assmnt - Choose All That Apply Each Factor Represents 1 point: Obesity (BMI >25) Each Risk Factor Represents 2 Points: Age 61-74 years Thrombosis Risk Factor Assessment Total Risk Factor Score: 3 Thrombosis Risk Factor Assessment Level: Moderate Risk
[2022-06-22] MEDS ORDERED: PRO STAT PO SCH (16:00)
[2022-06-22] MEDS ORDERED: NON FORMULARY DRUG (Ensure 1 CAN Ml) PO SCH (16:00)
--- NOTE | 2022-06-22 16:25 | P.GSCN ---
History of Present Illness Consult date: 06/22/22 History of present illness: REASON FOR CONSULTATION: Right groin wound HISTORY OF PRESENT ILLNESS: The patient is a 62 year old female with uterine cancer who is status post chemoradiation developed radionecrosis of the right groin. She had full thickness skin necrosis. She had initial debridement 3 weeks ago. Due to the complexity of her right groin wound, she was transferred to an outside facility. rPatient reports at her last hospitalization being transferred to outside institution. She had surgical debridements. Patient did not have a wound VAC. Patient reports being discharged to [facility] where wet-to-dry dressings have been performed along the right groin. Patient has been seen by infectious disease. PAST MEDICAL HISTORY: See list and reviewed PAST SURGICAL HISTORY: See list and reviewed MEDICATIONS: See list and reviewed ALLERGIES: See list and reviewed SOCIAL HISTORY: See list and reviewed FAMILY HISTORY: See list and reviewed REVIEW OF ORGAN SYSTEMS: CONSTITUTIONAL: No fevers or chills. No recent weight loss. Has morbid obesity, BMI 48.9 EYES: Denies any trouble with vision. Wears glasses. HEENT: No difficulties with hearing. No nosebleeds. No difficulty swallowing. RESPIRATORY: Denies pneumonia. Denies any troubles with breathing or dyspnea on exertion. CARDIOVASCULAR: Has hypertensive heart disease. Has hyperlipidemia. Prior cardiac ablation. History of atrial fibrillation. GASTROINTESTINAL: Denies fatty food intolerance. Denies change in bowel habits and gas bloat. Has gastroesophageal reflux disease. Has post-op nausea and vomiting. GENITOURINARY: Denies any blood in urine. Has increased urinary frequency. Recent uterine ovarian cancer diagnosis. NEUROLOGICAL: Denies any numbness or tingling along the distal extremities. No seizure disorders or headaches. Has recent stroke 1 month ago. MUSCULOSKELETAL: Has back pain, stiffness or joint arthritis. SKIN: No current skin cancer. No rash. PSYCHIATRIC: Has depression. No suicidal thoughts. ENDOCRINE: Has hypothyroidism. Has diabetes type II, insulin dependent. HEME/LYMPHATIC: Denies any lumps and bumps around the neck. No recent deep venous thrombosis. On anticoagulant. ALLERGY/IMMUNOLOGY: No immunoglobulin therapy. No immune deficiencies. Recent radiation. BREAST: Denies current breast lumps, pain or nipple discharge. PHYSICAL EXAM: VITALS: Reviewed CONSTITUTIONAL: Well developed and in no acute distress. EYES: Conjuctivae without sclera icterus. Extraocular movements grossly intact. HEAD, EARS, NOSE, THROAT: Moist buccal mucosa. Head is atraumatic, normocephalic. Hears conversational speech. No nasal drainage. NECK: Supple. No JV distention. No thyroidomegaly. RESPIRATORY: Non-labored respirations and equal bilateral excursions. No gross wheezes. CARDIOVASCULAR: Palpable 2+ radial pulses. ABDOMEN: Moderate-sized pannus over 40 pounds. Right groin wound 25 cm x 15 cm LYMPH: No neck lymphadenopathy. MUSCULOSKELETAL: No clubbing cyanosis. SKIN: Warm and well perfused with good skin turgor. Wound extremely large over 25 x 15 cm in size along the right groin. NEUROLOGIC: Cranial nerves II through XII grossly intact. No focal or lateralizing signs. PSYCH: Appropriate affect. Alert and oriented to person, place and time. Displays appropriate insight. CLINCAL LABS: Reviewed. WBC 7.7 on admission. Hemoglobin 8.0 on admission. IMAGING: Independently reviewed. Ultrasound of the gallbladder independent review demonstrates questionable gallbladder sludge. No gallbladder wall th ickening. This is my independent interpretation. RADIOLOGY: Report reviewed of ultrasound gallbladder demonstrates stones with gallbladder sludge. EKG: Demonstrates a atrial fibrillation RECORDS: From recent hospitalization and recent discharge 06/01/2022 ASSESSMENT: 1. Right groin complex wound 2. Panniculitis 3. Morbid obesity due to excess calories, BMI 51.6 4. Uterine cancer status post chemoradiation 5. Diabetes type 2, insulin-dependent 6. Chronic history atrial fibrillation PLAN: 1. Recommend improved nutrition with increased protein intake over 65 g daily 2. Also recommend wound care consultation for specialty wound VAC placement. 3. In the meantime, wet to dry dressing described. Thank you for this kind consultation. Past Medical History Past Medical History: Atrial Fibrillation, Cancer, Diabetes Mellitus, GERD/Reflux, Hypertension, Thyroid Disorder Additional Past Medical History / Comment(s): Pt states she has had intermittent vaginal bleeding over past one year, NIDDM type II, UTIs, hypothyroid, chronic low back pain, occasional bilateral leg pain at night. Ovarian cancer with chemo and radiation. History of Any Multi-Drug Resistant Organisms: ESBL Year Discovered:: 05/31/22 ESBL MDRO Source:: Groin Past Surgical History: Heart Catheterization, Tonsillectomy, Uterine Ablation Additional Past Surgical History / Comment(s): Nasal fracture with surgery, wisdom teeth extractions. Past Anesthesia/Blood Transfusion Reactions: Postoperative Nausea & Vomiting (PONV) Additional Past Anesthesia/Blood Transfusion Reaction / Comm: Pt received blood this hospitalization without reaction. Past Psychological History: Depression Additional Psychological History / Comment(s): Pt resides alone in an apartment. She uses a walker or cane. She drives. Smoking Status: Former smoker Past Alcohol Use History: None Reported Additional Past Alcohol Use History / Comment(s): PT started smoking as a teen and quit in 1994. Past Drug Use History: None Reported - Past Family History Father Family Medical History: Cancer Additional Family Medical History / Comment(s): Father of lung cancer. He was a smoker. Mother Family Medical History: Vascular Disorder Additional Family Medical History / Comment(s): Mother of a cerebral aneurysm at the age of 58 yrs. Medications and Allergies Home Medications Medication Instructions Recorded Confirmed Type Levothyroxine Sodium 200 mcg PO DAILY@0800 10/10/21 06/22/22 History Nitroglycerin Sl Tabs [Nitrostat] 0.4 mg SL Q5M PRN 10/10/21 06/22/22 History Omeprazole Magnesium [PriLOSEC OTC] 20 mg PO HS@199905/18/22 06/22/22 History Oxybutynin ER [Ditropan Xl] 10 mg PO DAILY@79905/18/22 06/22/22 History carvediloL [Coreg] 25 mg PO BID@0800,1600 05/18/22 06/22/22 History dilTIAZem HCL [Cardizem LA] 180 mg PO DAILY@79905/18/22 06/22/22 History metFORMIN HCL ER [Glucophage XR] 500 mg PO TID@0800,1200,1800 05/18/22 06/22/22 History Acetaminophen Tab [Tylenol] 650 mg PO Q4H PRN 06/22/22 06/22/22 History Acetaminophen/Diphenhydramine 2 tab PO HS PRN 06/22/22 06/22/22 History [Tylenol PM 500-25mg] Apixaban [Eliquis] 5 mg PO BID@0800,1600 06/22/22 06/22/22 History Atorvastatin [Lipitor] 40 mg PO HS@199906/22/22 06/22/22 History Digoxin [Lanoxin] 250 mcg PO DAILY@0800 06/22/22 06/22/22 History Docusate [Colace] 100 mg PO BID@0800,1600 06/22/22 06/22/22 History Ensure 1 can PO BID@0800,1600 06/22/22 06/22/22 History HYDROcodone/APAP 10-325MG [[place] 1 tab PO Q4HR PRN 06/22/22 06/22/22 History 10-325] Insulin Lispro [humaLOG Kwikpen] See Protocol SQ ACHS 06/22/22 06/22/22 History Nystatin 100,000 Unit/gm Powd 1 applic TOPICAL BID@0800,1600 06/22/22 06/22/22 History [Mycostatin Powder] Pro Stat 1 can PO BID@0800,1600 06/22/22 06/22/22 History oxyCODONE HCL 5 mg PO DAILY PRN 06/22/22 06/22/22 History polyethylene glycoL 3350 17 gm PO DAILY@0800 06/22/22 06/22/22 History [Polyethylene Glycol 3350] Allergies Allergy/AdvReac Type Severity Reaction Status Date / Time apixaban [From Eliquis] AdvReac Unsure, Verified 06/22/22 07:12 told by [employer] not to take Surgical - Exam Vital Signs Temp Pulse Resp BP Pulse Ox 97.6 F 61 16 97/51 98 06/21/22 21:53 06/21/22 21:53 06/21/22 21:53 06/21/22 21:53 06/21/22 21:53 Results - Labs 06/21/22 22:24 06/21/22 22:24 Abnormal Lab Results - Last 24 Hours (Table) 06/21/22 06/21/22 06/21/22 Range/Units 22:24 22:24 22:24 RBC 2.65 L (3.80-5.40) m/uL Hgb 8.0 L D (11.4-16.0) gm/dL Hct 25.1 L (34.0-46.0) % RDW 17.8 H (11.5-15.5) % Lymphocytes # 0.3 L (1.0-4.8) k/uL PT 13.4 H (9.0-12.0) sec INR 1.3 H (<1.2) APTT 35.3 H (22.0-30.0) sec Sodium 130 L (137-145) mmol/L Chloride 97 L (98-107) mmol/L BUN 37 H (7-17) mg/dL Creatinine 1.92 H (0.52-1.04) mg/dL Glucose 111 H (74-99) mg/dL POC Glucose (mg/dL) (70-110) mg/dL Hemoglobin A1c (0.0-6.0) % Calcium 7.6 L (8.4-10.2) mg/dL Magnesium 1.5 L (1.6-2.3) mg/dL AST 145 H (14-36) U/L ALT 42 H (4-34) U/L Alkaline Phosphatase 341 H (38-126) U/L Total Protein 4.8 L (6.3-8.2) g/dL Albumin 2.1 L (3.5-5.0) g/dL Lipase (23-300) U/L Urine Appearance (Clear) Urine Protein (Negative) Urine Bilirubin (Negative) Ur Leukocyte Esterase (Negative) Urine WBC (0-5) /hpf Urine Mucus (None) /hpf 06/21/22 06/21/22 06/21/22 Range/Units 22:24 22:24 22:29 RBC (3.80-5.40) m/uL Hgb (11.4-16.0) gm/dL Hct (34.0-46.0) % RDW (11.5-15.5) % Lymphocytes # (1.0-4.8) k/uL PT (9.0-12.0) sec INR (<1.2) APTT (22.0-30.0) sec Sodium (137-145) mmol/L Chloride (98-107) mmol/L BUN (7-17) mg/dL Creatinine (0.52-1.04) mg/dL Glucose (74-99) mg/dL POC Glucose (mg/dL) (70-110) mg/dL Hemoglobin A1c 6.7 H (0.0-6.0) % Calcium (8.4-10.2) mg/dL Magnesium (1.6-2.3) mg/dL AST (14-36) U/L ALT (4-34) U/L Alkaline Phosphatase (38-126) U/L Total Protein (6.3-8.2) g/dL Albumin (3.5-5.0) g/dL Lipase 16 L (23-300) U/L Urine Appearance Cloudy H (Clear) Urine Protein 1+ H (Negative) Urine Bilirubin 1+ H (Negative) Ur Leukocyte Esterase Large H (Negative) Urine WBC 35 H (0-5) /hpf Urine Mucus Occasional H (None) /hpf 06/22/22 Range/Units 11:54 RBC (3.80-5.40) m/uL Hgb (11.4-16.0) gm/dL Hct (34.0-46.0) % RDW (11.5-15.5) % Lymphocytes # (1.0-4.8) k/uL PT (9.0-12.0) sec INR (<1.2) APTT (22.0-30.0) sec Sodium (137-145) mmol/L Chloride (98-107) mmol/L BUN (7-17) mg/dL Creatinine (0.52-1.04) mg/dL Glucose (74-99) mg/dL POC Glucose (mg/dL) 142 H (70-110) mg/dL Hemoglobin A1c (0.0-6.0) % Calcium (8.4-10.2) mg/dL Magnesium (1.6-2.3) mg/dL AST (14-36) U/L ALT (4-34) U/L Alkaline Phosphatase (38-126) U/L Total Protein (6.3-8.2) g/dL Albumin (3.5-5.0) g/dL Lipase (23-300) U/L Urine Appearance (Clear) Urine Protein (Negative) Urine Bilirubin (Negative) Ur Leukocyte Esterase (Negative) Urine WBC (0-5) /hpf Urine Mucus (None) /hpf Microbiology - Last 24 Hours (Table) 06/21/22 22:29 Urine Culture - Preliminary Urine,Voided Diabetes panel 06/21/22 06/21/22 Range/Units 22:24 22:24 Sodium 130 L (137-145) mmol/L Potassium 4.7 (3.5-5.1) mmol/L Chloride 97 L (98-107) mmol/L Carbon Dioxide 23 (22-30) mmol/L BUN 37 H (7-17) mg/dL Creatinine 1.92 H (0.52-1.04) mg/dL Glucose 111 H (74-99) mg/dL Hemoglobin A1c 6.7 H (0.0-6.0) % Calcium 7.6 L (8.4-10.2) mg/dL AST 145 H (14-36) U/L ALT 42 H (4-34) U/L Alkaline Phosphatase 341 H (38-126) U/L Total Protein 4.8 L (6.3-8.2) g/dL Albumin 2.1 L (3.5-5.0) g/dL Calcium panel 06/21/22 Range/Units 22:24 Calcium 7.6 L (8.4-10.2) mg/dL Phosphorus 3.9 (2.5-4.5) mg/dL Albumin 2.1 L (3.5-5.0) g/dL Pituitary panel 06/21/22 Range/Units 22:24 Sodium 130 L (137-145) mmol/L Potassium 4.7 (3.5-5.1) mmol/L Chloride 97 L (98-107) mmol/L Carbon Dioxide 23 (22-30) mmol/L BUN 37 H (7-17) mg/dL Creatinine 1.92 H (0.52-1.04) mg/dL Glucose 111 H (74-99) mg/dL Calcium 7.6 L (8.4-10.2) mg/dL Adrenal panel 06/21/22 Range/Units 22:24 Sodium 130 L (137-145) mmol/L Potassium 4.7 (3.5-5.1) mmol/L Chloride 97 L (98-107) mmol/L Carbon Dioxide 23 (22-30) mmol/L BUN 37 H (7-17) mg/dL Creatinine 1.92 H (0.52-1.04) mg/dL Glucose 111 H (74-99) mg/dL Calcium 7.6 L (8.4-10.2) mg/dL Total Bilirubin 1.2 (0.2-1.3) mg/dL AST 145 H (14-36) U/L ALT 42 H (4-34) U/L Alkaline Phosphatase 341 H (38-126) U/L Total Protein 4.8 L (6.3-8.2) g/dL Albumin 2.1 L (3.5-5.0) g/dL
[2022-06-22] MEDS: NYSTATIN 100,000 UNIT/GM POWD 15 GM TOPICAL SCH (16:49)
[2022-06-22] MEDS: APIXABAN 5 MG TAB PO SCH (16:49)
--- NOTE | 2022-06-22 17:03 | XR ---
EXAMINATION TYPE: XR chest 1V portable DATE OF EXAM: 06/22/2022 Comparison: 05/25/2022 Clinical History: 62-year-old female lethargy and weakness Findings: Large patient body habitus. Hazy densities. Heart mildly enlarged. Diffuse interstitial and mild patc hy opacities are present left base underpenetrated and not well assessed. Impression: Limited [place] portable technique and large body habitus. There is mild cardiomegaly and interstitial pa tchy density. Unable to exclude developing infiltrates or mild patchy pulmonary edema.
[2022-06-22 17:18] LABS: Glucose,Whole Blood 157 mg/dL (70-110)
[2022-06-22 20:19] LABS: Glucose,Whole Blood 172 mg/dL (70-110)
[2022-06-22] MEDS: ATORVASTATIN 40 MG TAB PO SCH (20:33)
[2022-06-22] MEDS: PANTOPRAZOLE 40 MG TABLET PO SCH (20:33)
[2022-06-22] MEDS: ACETAMINOPHEN TAB 325 MG TAB PO PRN (20:45)
--- NOTE | 2022-06-22 22:24 | P.CONS ---
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 coli from blood culture during her last stay patient has not been brought back to the hospital last night from the local long-term for evaluation of patient being lethargic and difficult to arouse patient was noted to be hypoxic patient apparently has not been eating and drinking and not feeling well patient denies having any headache or URI symptoms no chest pain or shortness of breath cough has been complaining of pain to her groin wound area unable to quantify to me for the current local wound care has been wet-to-dry dressing changes patient denies having any nausea or vomiting or any diarrhea patient on presentation the hospital was afebrile had no fever have recorded subsequently patient is currently 98% on 3 L nasal cannula patient did have a normal white count with no left shift she did have elevated BUN and creatinine as well as elevated liver enzymes urine has been mildly positive urine cultures are currently pending patient did have a gallbladder ultrasound which did shows cholelithiasis with gallbladder sludge and gallbladder hydrops Common bile duct is mildly prominent patient has been admitted to hospital infectious disease was consulted for further management Review of Systems Positive point has been mentioned in the HPI rest of the systems are negative Past Medical History Past Medical History: Atrial Fibrillation, Cancer, Diabetes Mellitus, GERD/Reflux, Hypertension, Thyroid Disorder Additional Past Medical History / Comment(s): Pt states she has had intermittent vaginal bleeding over past one year, NIDDM type II, UTIs, hypothyroid, chronic low back pain, occasional bilateral leg pain at night. Ovarian cancer with chemo and radiation. History of Any Multi-Drug Resistant Organisms: ESBL Year Discovered:: 05/31/22 ESBL MDRO Source:: Groin Past Surgical History: Heart Catheterization, Tonsillectomy, Uterine Ablation Additional Past Surgical History / Comment(s): Nasal fracture with surgery, wisdom teeth extractions. Past Anesthesia/Blood Transfusion Reactions: Postoperative Nausea & Vomiting (PONV) Additional Past Anesthesia/Blood Transfusion Reaction / Comm: Pt received blood this hospitalization without reaction. Past Psychological History: Depression Additional Psychological History / Comment(s): Pt resides alone in an apartment. She uses a walker or cane. She drives. Smoking Status: Former smoker Past Alcohol Use History: None Reported Additional Past Alcohol Use History / Comment(s): PT started smoking as a teen and quit in 1994. Past Drug Use History: None Reported - Past Family History Father Family Medical History: Cancer Additional Family Medical History / Comment(s): Father of lung cancer. He was a smoker. Mother Family Medical History: Vascular Disorder Additional Family Medical History / Comment(s): Mother of a cerebral aneurysm at the age of 58 yrs. Medications and Allergies Home Medications Medication Instructions Recorded Confirmed Type Levothyroxine Sodium 200 mcg PO DAILY@0800 10/10/21 06/22/22 History Nitroglycerin Sl Tabs [Nitrostat] 0.4 mg SL Q5M PRN 10/10/21 06/22/22 History Omeprazole Magnesium [PriLOSEC OTC] 20 mg PO HS@199905/18/22 06/22/22 History Oxybutynin ER [Ditropan Xl] 10 mg PO DAILY@79905/18/22 06/22/22 History carvediloL [Coreg] 25 mg PO BID@0800,1600 05/18/22 06/22/22 History dilTIAZem HCL [Cardizem LA] 180 mg PO DAILY@00 05/18/22 06/22/22 History metFORMIN HCL ER [Glucophage XR] 500 mg PO TID@0800,1200,1800 05/18/22 06/22/22 History Acetaminophen Tab [Tylenol] 650 mg PO Q4H PRN 06/22/22 06/22/22 History Acetaminophen/Diphenhydramine 2 tab PO HS PRN 06/22/22 06/22/22 History [Tylenol PM 500-25mg] Apixaban [Eliquis] 5 mg PO BID@0800,1600 06/22/22 06/22/22 History Atorvastatin [Lipitor] 40 mg PO HS@2000 06/22/22 06/22/22 History Digoxin [Lanoxin] 250 mcg PO DAILY@0800 06/22/22 06/22/22 History Docusate [Colace] 100 mg PO BID@0800,1600 06/22/22 06/22/22 History Ensure 1 can PO BID@0800,1600 06/22/22 06/22/22 History HYDROcodone/APAP 10-325MG [[place] 1 tab PO Q4HR PRN 06/22/22 06/22/22 History 10-325] Insulin Lispro [humaLOG Kwikpen] See Protocol SQ ACHS 06/22/22 06/22/22 History Nystatin 100,000 Unit/gm Powd 1 applic TOPICAL BID@0800,1600 06/22/22 06/22/22 History [Mycostatin Powder] Pro Stat 1 can PO BID@0800,1600 06/22/22 06/22/22 History oxyCODONE HCL 5 mg PO DAILY PRN 06/22/22 06/22/22 History polyethylene glycoL 3350 17 gm PO DAILY@0800 06/22/22 06/22/22 History [Polyethylene Glycol 3350] Allergies Allergy/AdvReac Type Severity Reaction Status Date / Time apixaban [From Eliquis] AdvReac Unsure, Verified 06/22/22 07:12 told by Director Of Medical Education not to take Physical Exam Vitals: Vital Signs Temp Pulse Pulse Resp BP BP Pulse Ox 06/22/22 07:58 98 F 57 L 16 122/70 98 06/22/22 07:25 98 06/22/22 03:05 98.4 F 62 19 97/44 97 06/22/22 02:12 52 L 16 107/95 98 06/22/22 01:40 55 L 20 93/66 98 06/22/22 00:03 54 L 18 116/95 98 06/21/22 22:03 52 L 16 88/57 97 06/21/22 21:53 97.6 F 61 16 97/51 98 Intake and Output 06/21/22 06/22/22 06/22/22 22:59 06:59 14:59 Other: Voiding Method Indwelling Catheter Indwelling Catheter # Voids 1 Weight 145.15 kg 145.15 kg GENERAL DESCRIPTION: Middle-aged female lying in bed, no distress. No tachypnea or accessory muscle of respiration use. HEENT: Shows Pallor , no scleral icterus. Oral mucous membrane is dry. No pharyngeal erythema or thrush NECK: Trachea central, no thyromegaly. LUNGS: Unlabored breathing. Decreased breath sound the bases. HEART: S1, S2, regular rate and rhythm. No loud murmur ABDOMEN: Soft, patient did have a large right groin and lower abdominal wound minimal slough no surrounding redness or foul-smelling drainage EXTREMITIES: Diffuse swelling both lower extremity. SKIN: No rash, no masses palpable. NEUROLOGICAL: The patient is awake, alert, oriented x3, mood and affect normal. Results CBC & Chem 7: 06/27/22 04:31 06/27/22 04:31 Labs: Abnormal Lab Results - Last 24 Hours (Table) 06/21/22 06/21/22 06/21/22 Range/Units 22:24 22:24 22:24 RBC 2.65 L (3.80-5.40) m/uL Hgb 8.0 L D (11.4-16.0) gm/dL Hct 25.1 L (34.0-46.0) % RDW 17.8 H (11.5-15.5) % Lymphocytes # 0.3 L (1.0-4.8) k/uL PT 13.4 H (9.0-12.0) sec INR 1.3 H (<1.2) APTT 35.3 H (22.0-30.0) sec Sodium 130 L (137-145) mmol/L Chloride 97 L (98-107) mmol/L BUN 37 H (7-17) mg/dL Creatinine 1.92 H (0.52-1.04) mg/dL Glucose 111 H (74-99) mg/dL POC Glucose (mg/dL) (70-110) mg/dL Calcium 7.6 L (8.4-10.2) mg/dL Magnesium 1.5 L (1.6-2.3) mg/dL AST 145 H (14-36) U/L ALT 42 H (4-34) U/L Alkaline Phosphatase 341 H (38-126) U/L Total Protein 4.8 L (6.3-8.2) g/dL Albumin 2.1 L (3.5-5.0) g/dL Lipase (23-300) U/L Urine Appearance (Clear) Urine Protein (Negative) Urine Bilirubin (Negative) Ur Leukocyte Esterase (Negative) Urine WBC (0-5) /hpf Urine Mucus (None) /hpf 06/21/22 06/21/22 06/22/22 Range/Units 22:24 22:29 11:54 RBC (3.80-5.40) m/uL Hgb (11.4-16.0) gm/dL Hct (34.0-46.0) % RDW (11.5-15.5) % Lymphocytes # (1.0-4.8) k/uL PT (9.0-12.0) sec INR (<1.2) APTT (22.0-30.0) sec Sodium (137-145) mmol/L Chloride (98-107) mmol/L BUN (7-17) mg/dL Creatinine (0.52-1.04) mg/dL Glucose (74-99) mg/dL POC Glucose (mg/dL) 142 H (70-110) mg/dL Calcium (8.4-10.2) mg/dL Magnesium (1.6-2.3) mg/dL AST (14-36) U/L ALT (4-34) U/L Alkaline Phosphatase (38-126) U/L Total Protein (6.3-8.2) g/dL Albumin (3.5-5.0) g/dL Lipase 16 L (23-300) U/L Urine Appearance Cloudy H (Clear) Urine Protein 1+ H (Negative) Urine Bilirubin 1+ H (Negative) Ur Leukocyte Esterase Large H (Negative) Urine WBC 35 H (0-5) /hpf Urine Mucus Occasional H (None) /hpf Microbiology - Last 24 Hours (Table) 06/21/22 22:29 Urine Culture - Preliminary Urine,Voided Assessment and Plan (1) Right groin wound Current Visit: No Status: Acute Code(s): S31.109A - UNSP OPN WND ABD WALL, UNSP Q W/O PENET PERIT CAV, INIT SNOMED Code(s): 775882748 Plan: 1patient presented to hospital with weakness lethargy which is likely multifactorial possible dehydration as the patient not been eating and drinking he did have elevated BUN and fattening patient also have a positive UA and possible complaint of symptomatic urinary tract infection. 2 Patient with a large wound to the right groin area after extensive surgical debridement for radionecrosis with a culture at that time was positive for ESBL and Jacki patient to have a PICC line but no clear documentation that the patient was receiving antibiotic at the long-term. 3local wound care with the wound VAC if not continue with the wet-to-dry dressing this was discussed with the nursing staff. 4we will add Invanz 1 g daily while waiting for the culture to finalize and check inflammatory markers. We will follow on clinical condition and cultures to further adjust medication if needed Thank you for this consultation will follow this patient along with you Time with Patient: Greater than 30
[2022-06-22] MEDS ORDERED: ERTAPENEM 1 GM in SODIUM CHLORIDE 0.9% 50 ML IVPB SCH (22:30)
[2022-06-23] MEDS: HYDROcodone/APAP 10-325MG 1 EACH TAB PO PRN ×3 (02:49→19:34)
[2022-06-23] MEDS: SODIUM CHLORIDE 0.9% 1,000 ML IV SCH ×3 (02:50→19:35)
[2022-06-23 06:56] LABS: Glucose,Whole Blood 115 mg/dL (70-110)
[2022-06-23 08:56] LABS: Basophils # (A) 0.01 X 10*3/uL (0.00-0.10); Basophils % (A) 0.1 %; Eosinophils # (A) 0.17 X 10*3/uL (0.04-0.35); Eosinophils % (A) 2.1 %; HCT 23.8 % (37.2-46.3); HGB 7.2 g/dL (12.0-15.0); Immature Grans, Automated 0.9 %; Lymphocytes # (A) 0.24 X 10*3/uL (0.90-5.00); MCH 29.1 pg (27.0-32.0); MCHC 30.3 g/dL (32.0-37.0); MCV 96.4 fL (80.0-97.0); Mean Platelet Volume 9.6 fL (9.5-12.2); Monocytes # (A) 0.52 X 10*3/uL (0.20-1.00); Monocytes % (A) 6.5 %; NRBC Per 100 WBC 0 /100 WBCS (0.0-0.0); Neutrophils # (A) 6.96 X 10*3/uL (1.80-7.70); Neutrophils % (A) 87.4 %; Platelet Count 311 X 10*3/uL (140-440); RBC 2.47 X 10*6/uL (4.10-5.20); RDW 18.2 % (11.5-14.5); WBC 7.97 X 10*3/uL (4.50-10.00)
[2022-06-23] MEDS: INSULIN ASPART (NovoLOG) 100 UNIT/ML VIAL SQ SCH ×3 (09:06→16:20)
[2022-06-23] MEDS: polyethylene glycoL 3350 17 GM POWD.PACK PO SCH (09:07)
[2022-06-23] MEDS: NYSTATIN 100,000 UNIT/GM POWD 15 GM TOPICAL SCH ×2 (09:15→16:19)
[2022-06-23] MEDS: APIXABAN 5 MG TAB PO SCH ×2 (09:16→16:18)
[2022-06-23] MEDS: LEVOTHYROXINE 100 MCG TAB PO SCH (09:16)
[2022-06-23] MEDS: carvediloL 6.25 MG TAB PO SCH ×2 (09:16→16:19)
[2022-06-23] MEDS: OXYBUTYNIN 10 MG TAB.ER.24 PO SCH (09:16)
[2022-06-23 10:13] LABS: African American GFR (CKD) 24.6 (60.0-200.0); Albumin 2.1 g/dL (3.8-4.9); Albumin/Globulin Ratio 0.77 (1.60-3.17); BUN/Creat Ratio 16.74 Ratio (12.00-20.00); Blood Urea Nitrogen 39.5 mg/dL (9.0-27.0); C Reactive Protein 27.4 mg/dL (0.00-0.80); Calcium 7.6 mg/dL (8.7-10.3); Carbon Dioxide 22.6 mmol/L (20.0-27.5); Globulin 2.7 g/dL (1.6-3.3); Non-African American GFR(CKD) 21.2 (60.0-200.0); Potassium 4.9 mmol/L (3.5-5.5); Total Bilirubin 0.6 mg/dL (0.30-1.20); Total Protein 4.8 g/dL (6.2-8.2)
[2022-06-23 10:35] LABS: Erythrocyte Sedimentation Rate 41 mm/Hr (0-30)
[2022-06-23 11:57] LABS: Glucose,Whole Blood 139 mg/dL (70-110)
[2022-06-23] MEDS: VANCOMYCIN 125 MG CAPSULE PO SCH ×3 (12:52→19:34)
--- NOTE | 2022-06-23 14:39 | P.PN ---
Progress Note - Text Progress Note Date: 06/23/22 Chief Complaint: Anemia This is a pleasant 62-year-old patient, follows with Dr. Smooth Bob. Chronic stable medical conditions include diabetes, GERD, essential hypertension, hypothyroid. Chronic low back pain. Ovarian cancer treatment for chemo and radiation treatment. September 2021 was having significant vaginal bleeding. 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 No metastatic disease. She was not felt to be surgical candidate and was to receive 3 cycles of carboplatin/Taxol followed by radiation and 3 additional cycles of the above. She completed radi ation on 03/14/2022. Started back on the carbotaxol April 03 and was status post cycle 6 day 1 on May 16. May 2022: Stroke found in the left coronary radiata on the posterior aspect of left frontal lobe. Was placed on eliquis for atrial fibrillation. On recent admission patient to have a significant wound on the right groin and abdominal pannus. Was seen by Dr. mcdermott from [place] and Dr. Kasper from general surgery. May 31 underwent wound debridement by Dr. Kasper. Cultures were positive for ESBL klebsiella. Covered with vancomycin and meropenem. June 01 patient was transferred to [facility] for further management of deep wounds. Patient now presents here from [facility]. Patient become more lethargic. Difficult to arouse. Hypoxic on room air 82%. Placed on 5 L of oxygen. Patient was vomiting up on arrival of the EMS. Patient states that she is not been eating much. Kidney function is much worse since he has recently. Not eating drinking enough. Wounds are present. Patient rather lethargic during history taking. Tired easily. Patient has been nonambulatory since discharge June 23: Tired. Barely eating. Kidney function is worse. Changed to pured diet. IV fluids to continue. Wound care per surgery and ID. Foul-smelling diarrhea. Positive for C. diff. Active Medications Acetaminophen (Acetaminophen Tab 325 Mg Tab) 650 mg PO Q4H PRN PRN Reason: Fever Last Admin: 06/22/22 20:45 Dose: 650 mg Hydrocodone Bitart/Acetaminophen (Hydrocodone/Apap 10-325mg 1 Each Tab) 1 each PO Q4HR PRN PRN Reason: Pain Last Admin: 06/23/22 09:36 Dose: 1 each Apixaban (Apixaban 5 Mg Tab) 5 mg PO BID@0800,1600 [facility]; Protocol Last Admin: 06/23/22 09:16 Dose: 5 mg Atorvastatin Calcium (Atorvastatin 40 Mg Tab) 40 mg PO HS@1999 [facility] Last Admin: 06/22/22 20:33 Dose: 40 mg Carvedilol (Carvedilol 6.25 Mg Tab) 6.25 mg PO BID@0800,1600 [facility] Last Admin: 06/23/22 09:16 Dose: 6.25 mg Dextrose/Water (Dextrose 50% Syringe 50 Ml) 25 ml IVP PER PROTOCOL PRN; Protocol PRN Reason: Hypoglycemia Dextrose/Water (Dextrose 50% Syringe 50 Ml) 50 ml IVP PER PROTOCOL PRN; Protocol PRN Reason: Hypoglycemia Sodium Chloride (Saline 0.9%) 1,000 mls @ 130 mls/hr IV .Q7H42M [facility] Last Admin: 06/23/22 11:07 Dose: 130 mls/hr Insulin Aspart (Insulin Aspart (Novolog) 100 Unit/Ml Vial) 0 unit SQ AC-TID [facility]; Protocol Last Admin: 06/23/22 12:33 Dose: Not Given Levothyroxine Sodium (Levothyroxine 100 Mcg Tab) 200 mcg PO DAILY@0800 [facility] Last Admin: 06/23/22 09:16 Dose: 200 mcg Naloxone HCl (Naloxone 0.4 Mg/Ml 1 Ml Vial) 0.2 mg IV Q2M PRN PRN Reason: Opioid Reversal Nitroglycerin (Nitroglycerin Sl Tabs 0.4 Mg Tab) 0.4 mg SUBLINGUAL Q5M PRN PRN Reason: Chest Pain Nystatin (Nystatin 100,000 Unit/Gm Powd 15 Gm) 1 applic TOPICAL BID@0800,1600 [facility]; Protocol Last Admin: 06/23/22 09:15 Dose: 1 applic Ondansetron HCl (Ondansetron 4 Mg/2 Ml Vial) 4 mg IVP Q8HR PRN PRN Reason: Nausea And Vomiting Oxybutynin Chloride (Oxybutynin 10 Mg Tab.Er.24) 10 mg PO DAILY@0800 [facility] Last Admin: 06/23/22 09:16 Dose: 10 mg Pantoprazole Sodium (Pantoprazole 40 Mg Tablet) 40 mg PO HS@1999 [facility] Last Admin: 06/22/22 20:33 Dose: 40 mg Polyethylene Glycol (Polyethylene Glycol 3350 17 Gm Powd.Pack) 17 gm PO DAILY@0800 [facility] Last Admin: 06/23/22 09:07 Dose: Not Given Vancomycin HCl (Vancomycin 125 Mg Capsule) 125 mg PO QID [facility]; Protocol Last Admin: 06/23/22 12:52 Dose: 125 mg Past medical history to include: Atrial fibrillation, diabetes, GERD, hypertension, hypothyroid, ovarian cancer with chemo and radiation treatment. Depression. Stroke. Social history: [facility]. Patient started smoking as a teenager and stopped in 1994. No alcohol. Family history: Father of lung cancer Physical examination: VITAL SIGNS: 97.9, 68, 16, 98 x 37, 98% on 3 L GENERAL: Laying in bed, lethargic, tired EYES: Pupils equal. Conjunctiva normal. HEENT: External appearance of nose and ears normal, oral cavity dry mucous membranes NECK: JVD unable to assess; masses not palpable. HEART: Heart sounds irregular; slight edema. LUNGS: Respiratory rate normal; distant breath sound. ABDOMEN: Soft, nontender, liver spleen not palpable, no masses palpable. Perianal wounds C wound care notes. PSYCH: Able to answer simple questions, lethargic but arousable MUSCULOSKELETAL:No Clubbing/cyanosis;muscles-grossly intact, evidence of OA DERMATOLOGICAL: Deep wound in the abdominal pannus in the right groin. See nursing notes for pictures NEUROLOGICAL: Able to move all 4 limbs. Cranial nerves grossly intact. INVESTIGATIONS, reviewed in the clinical context: June 23: White count 7.9 hemoglobin 7.2 platelets 311 potassium 4.9 creatinine 2.4 CRP 0.77 White count 7.7 hemoglobin 8 platelets 348 sodium 1:30 potassium 4.7 BUN 37 creatinine 1.9 to AST 145 ALT 42 albumin 2.1 EKG tracing personally reviewed by me-personally reviewed by me: Atrial fibrillation. Rate 60 Chest x-ray film personally reviewed by me-portable. Underpenetrated. Borderline cardiomegaly From recent admission: 06/01/2022: BUN 19 creatinine 0.93 MRI brain without contrast: Acute/subacute CVA of the left coronary radiata on the posterior aspect of the left frontal lobe. Nonspecific white matter changes. CT brain: Mild atrophic CT angiography of the brain: Nonspecific 2-D echocardiogram: EF 55-60%, severe LVH Assessment and plan: -Acute metabolic encephalopathy from acute kidney injury: Slow to respond -Acute kidney injury combination of prerenal and ATN.: Worsening Stop metformin. IV fluids -Acute C. diff colitis from recent antibiotics Oral vancomycin started 125 mg by mouth 4 times a day. -Chronic Large wound on the abdominal pannus and right groin May 31 underwent deep wound debrided. By Dr. Kasper. Consultation to ID and general surgery. -Acute stroke in the left [place] radiata on the posterior aspect of the left frontal lobe. suspected to be embolic from underlying paroxysmal atrial fibrillation, on 05/18/2022 Eliquis. No aspirin. -Persistent atrial fibrillation: Rate controlled eliquis. Coreg 6.25 mg twice a day.. [Cardizem CD 180 mg a day. And digitoxin to be held] -Chronic dysphagia from underlying stroke : Chopped diet -Diabetes mellitus type 2 on oral hypoglycemic Hold metformin. Follow Accu-Cheks -Morbid obesity BMI 51.6 Weight loss measures -GERD Prilosec 20 mg -Essential hypertension, currently blood pressure running low Decrease Coreg 6.25 mg twice a day, hold Cardizem -Chronic urinary stress incontinence Ditropan XL 10 mg a day -Hypothyroid Synthroid 200 g a day -Acute on chronic medical debility multifactorial Continue IV fluids. Oral vancomycin. Local wound care. Repeat labs. Prognosis guarded.
[2022-06-23 16:13] LABS: Glucose,Whole Blood 141 mg/dL (70-110)
[2022-06-23 19:17] LABS: Glucose,Whole Blood 125 mg/dL (70-110)
[2022-06-23] MEDS: PANTOPRAZOLE 40 MG TABLET PO SCH (19:34)
[2022-06-23] MEDS: ATORVASTATIN 40 MG TAB PO SCH (19:34)
[2022-06-23] MEDS ORDERED: ERTAPENEM 0.5 GM in SODIUM CHLORIDE 0.9% 50 ML IVPB SCH (21:00)
--- NOTE | 2022-06-23 21:19 | P.PN ---
Subjective Progress Note Date: 06/23/22 Principal diagnosis: R groin wound and diarrhea Patient is a 62-year-old female with a past medical history significant for uterine cancer status post chemoradiation with significant skin necrosis to the right groin area status post extensive surgery department culture with ESBL E. coli for the patient apparently has come having right therapy subsequently presenting back to the hospital for weakness mental status change and dehydration and apparently the patient also have a diarrhea and stool for significantly positive. On today's evaluation that is 06/23/2022, patient denies having any fever or any chills breathing comfortably no chest pain or shortness of the cough has been complaining of pain to lower abdominal and groin wound area and did have multiple loose stools apparently nursing staff Objective - Vital Signs Vital signs: Vital Signs Temp 98.4 F 06/23/22 07:00 Pulse 64 06/23/22 07:00 Resp 18 06/23/22 07:00 BP 94/55 06/23/22 07:00 Pulse Ox 94 L 06/23/22 07:25 FiO2 Intake & Output 06/22/22 06/23/22 06/23/22 18:59 06:59 18:59 Intake Total 248 118 Output Total 350 600 Balance -102 -600 118 Intake: Intake, IV Titration 130 Amount Sodium Chloride 0.9% 1, 130 000 ml @ 130 mls/hr IV . Q7H42M [facility] Rx#:[id number] Oral 118 118 Output: Urine 350 600 Other: Voiding Method Indwelling Catheter Indwelling Catheter Indwelling Catheter - Exam GENERAL DESCRIPTION: Middle-aged female lying in bed, no distress. No tachypnea or accessory muscle of respiration use. LUNGS: Unlabored breathing. Clear to auscultation anteriorly. No wheeze or crackle. HEART: S1, S2, regular rate and rhythm. No loud murmur ABDOMEN: Soft, no tenderness , did have extensive wound to the right groin covered with the dressing no drainage of the dressing EXTREMITIES: Diffuse swelling bilateral lower extremity. - Labs CBC & Chem 7: 06/23/22 04:32 06/23/22 04:32 Labs: Abnormal Lab Results - Last 24 Hours (Table) 06/21/22 06/22/22 06/22/22 Range/Units 22:24 11:54 17:15 RBC (4.10-5.20) X 10*6/uL Hgb (12.0-15.0) g/dL Hct (37.2-46.3) % MCHC (32.0-37.0) g/dL RDW (11.5-14.5) % Immature Gran # (0.00-0.04) X 10*3/uL Lymphocytes # (0.90-5.00) X 10*3/uL ESR (0-30) mm/Hr Sodium (135-145) mmol/L BUN (9.0-27.0) mg/dL Creatinine (0.6-1.5) mg/dL Est GFR (CKD-EPI)AfAm (60.0-200.0) Est GFR (CKD-EPI)NonAf (60.0-200.0) POC Glucose (mg/dL) 142 H 157 H (70-110) mg/dL Hemoglobin A1c 6.7 H (0.0-6.0) % Calcium (8.7-10.3) mg/dL AST (13-35) U/L ALT (8-44) U/L Alkaline Phosphatase (41-126) U/L C-Reactive Protein (0.00-0.80) mg/dL Total Protein (6.2-8.2) g/dL Albumin (3.8-4.9) g/dL Albumin/Globulin Ratio (1.60-3.17) g/dL C. difficile (EIA) Intrp (Negative) 06/22/22 06/23/22 06/23/22 Range/Units 20:18 02:00 04:32 RBC 2.47 L (4.10-5.20) X 10*6/uL Hgb 7.2 L (12.0-15.0) g/dL Hct 23.8 L (37.2-46.3) % MCHC 30.3 L (32.0-37.0) g/dL RDW 18.2 H (11.5-14.5) % Immature Gran # 0.07 H (0.00-0.04) X 10*3/uL Lymphocytes # 0.24 L (0.90-5.00) X 10*3/uL ESR 41 H (0-30) mm/Hr Sodium (135-145) mmol/L BUN (9.0-27.0) mg/dL Creatinine (0.6-1.5) mg/dL Est GFR (CKD-EPI)AfAm (60.0-200.0) Est GFR (CKD-EPI)NonAf (60.0-200.0) POC Glucose (mg/dL) 172 H (70-110) mg/dL Hemoglobin A1c (0.0-6.0) % Calcium (8.7-10.3) mg/dL AST (13-35) U/L ALT (8-44) U/L Alkaline Phosphatase (41-126) U/L C-Reactive Protein (0.00-0.80) mg/dL Total Protein (6.2-8.2) g/dL Albumin (3.8-4.9) g/dL Albumin/Globulin Ratio (1.60-3.17) g/dL C. difficile (EIA) Intrp Positive A (Negative) 06/23/22 06/23/22 Range/Units 04:32 06:54 RBC (4.10-5.20) X 10*6/uL Hgb (12.0-15.0) g/dL Hct (37.2-46.3) % MCHC (32.0-37.0) g/dL RDW (11.5-14.5) % Immature Gran # (0.00-0.04) X 10*3/uL Lymphocytes # (0.90-5.00) X 10*3/uL ESR (0-30) mm/Hr Sodium 132 L (135-145) mmol/L BUN 39.5 H (9.0-27.0) mg/dL Creatinine 2.4 H (0.6-1.5) mg/dL Est GFR (CKD-EPI)AfAm 24.6 L (60.0-200.0) Est GFR (CKD-EPI)NonAf 21.2 L (60.0-200.0) POC Glucose (mg/dL) 115 H (70-110) mg/dL Hemoglobin A1c (0.0-6.0) % Calcium 7.6 L (8.7-10.3) mg/dL AST 109 H (13-35) U/L ALT 67 H (8-44) U/L Alkaline Phosphatase 361 H (41-126) U/L C-Reactive Protein 27.40 H (0.00-0.80) mg/dL Total Protein 4.8 L (6.2-8.2) g/dL Albumin 2.1 L (3.8-4.9) g/dL Albumin/Globulin Ratio 0.77 L (1.60-3.17) g/dL C. difficile (EIA) Intrp (Negative) Assessment and Plan (1) C. difficile colitis Current Visit: Yes Status: Acute Code(s): A04.72 - ENTEROCOLITIS D/T CLOSTRIDIUM DIFFICILE, NOT SPCF RECUR SNOMED Code(s): 196100576 (2) Right groin wound Current Visit: No Status: Acute Code(s): S31.109A - UNSP OPN WND ABD WALL, UNSP Q W/O PENET PERIT CAV, INIT SNOMED Code(s): 253807841 Plan: 1patient presented to hospital with weakness lethargy which is likely multifactorial possible dehydration as the patient not been eating and drinking he did have elevated BUN and fattening patient also have a positive UA and possible urinary tract infection vs asymptomatic bacteruria as pt has no significant urinary symptoms 2 Patient with a large wound to the right groin area after extensive surgical debridement for radionecrosis with a culture at that time was positive for ESBL and Jacki patient to have a PICC line but no clear documentation that the patient was receiving antibiotic at the [facility]. 3local wound care with the wound VAC if not continue with the wet-to-dry dressing this was discussed with the nursing staff. 4 Diarrhea and stool for c diff positive , regis moreno , start vanco 125mg po q6hr Time with Patient: Less than 30
[2022-06-24] MEDS: HYDROcodone/APAP 10-325MG 1 EACH TAB PO PRN ×4 (01:50→21:04)
[2022-06-24] MEDS: SODIUM CHLORIDE 0.9% 1,000 ML IV SCH ×3 (02:23→21:03)
[2022-06-24 06:55] LABS: Glucose,Whole Blood 114 mg/dL (70-110)
[2022-06-24 07:15] LABS: Anisocytosis Slight; Basophils % (A) 0 %; Eosinophils # (A) 0.2 k/uL (0-0.7); Eosinophils % (A) 3 %; HCT 25.2 % (34.0-46.0); HGB 7.6 gm/dL (11.4-16.0); Hypochromasia Marked; Lymphocytes # (A) 0.2 k/uL (1.0-4.8); Lymphocytes % (A) 3 %; MCH 28.8 pg (25.0-35.0); MCHC 30.4 g/dL (31.0-37.0); MCV 94.8 fL (80.0-100.0); Mean Platelet Volume 7.6; Monocytes # (A) 0.4 k/uL (0-1.0); Monocytes % (A) 5 %; Neutrophils % (A) 88 %; Platelet Count 346 k/uL (150-450); Poikilocytosis Slight; RBC 2.65 m/uL (3.80-5.40); RDW 17.6 % (11.5-15.5); WBC 7.9 k/uL (3.8-10.6)
[2022-06-24 07:30] LABS: African American GFR (CKD) 41 (>60 ml/min/1.73 sqM); Anion Gap 7 mmol/L; Blood Urea Nitrogen 37 mg/dL (7-17); Calcium 7.2 mg/dL (8.4-10.2); Carbon Dioxide 23 mmol/L (22-30); Chloride 104 mmol/L (98-107); Glucose 104 mg/dL (74-99); Non-African American GFR(CKD) 35 (>60 ml/min/1.73 sqM); Potassium 4.2 mmol/L (3.5-5.1); Sodium 134 mmol/L (137-145)
[2022-06-24] MEDS: INSULIN ASPART (NovoLOG) 100 UNIT/ML VIAL SQ SCH ×3 (08:29→16:50)
[2022-06-24] MEDS: polyethylene glycoL 3350 17 GM POWD.PACK PO SCH (08:30)
[2022-06-24] MEDS: LEVOTHYROXINE 100 MCG TAB PO SCH (08:48)
[2022-06-24] MEDS: carvediloL 6.25 MG TAB PO SCH ×2 (08:48→16:43)
[2022-06-24] MEDS: NYSTATIN 100,000 UNIT/GM POWD 15 GM TOPICAL SCH ×2 (08:48→16:43)
[2022-06-24] MEDS: OXYBUTYNIN 10 MG TAB.ER.24 PO SCH (08:48)
[2022-06-24] MEDS: APIXABAN 5 MG TAB PO SCH ×2 (08:48→16:42)
[2022-06-24] MEDS: VANCOMYCIN 125 MG CAPSULE PO SCH ×4 (08:48→21:03)
--- NOTE | 2022-06-24 11:02 | P.PN ---
Subjective Progress Note Date: 06/23/22 CHIEF COMPLAINT: Right groin wound HISTORY OF PRESENT ILLNESS: The patient is a 62 year old female with super morbid obesity presents with radionecrosis of the right groin and complex right groin wound. She is resting comfortably. No new complaints. Currently wet-to-dry dressings. REVIEW OF ORGAN SYSTEMS: CARDIOVASCULAR: Has hypertensive heart disease. Has hyperlipidemia. Prior cardiac ablation. History of atrial fibrillation. MUSCULOSKELETAL: Has back pain, stiffness or joint arthritis. ENDOCRINE: Has hypothyroidism. Has diabetes type II, insulin dependent. PHYSICAL EXAM: VITALS: Reviewed CONSTITUTIONAL: Well developed and in no acute distress. EYES: Conjuctivae without sclera icterus. Extraocular movements grossly intact. HEAD, EARS, NOSE, THROAT: Moist buccal mucosa. Head is atraumatic, normocephalic. Hears conversational speech. No nasal drainage. RESPIRATORY: Non-labored respirations and equal bilateral excursions. No gross wheezes. CARDIOVASCULAR: Palpable 2+ radial pulses. ABDOMEN: Moderate-sized pannus over 40 pounds. Right groin wound 25 cm x 15 cm MUSCULOSKELETAL: No clubbing cyanosis. SKIN: Warm and well perfused with good skin turgor. Wound extremely large over 25 x 15 cm in size along the right groin. NEUROLOGIC: Cranial nerves II through XII grossly intact. No focal or lateralizing signs. PSYCH: Appropriate affect. Alert and oriented to person, place and time. Displays appropriate insight. CLINCAL LABS: Reviewed. WBC normal 7.9. Hemoglobin down 8.0-7.2. ASSESSMENT: 1. Right groin complex wound 2. Panniculitis 3. Morbid obesity due to excess calories, BMI 51.6 4. Uterine cancer status post chemoradiation 5. Diabetes type 2, insulin-dependent 6. Chronic history atrial fibrillation 7. Anemia PLAN: 1. Continue wet-to-dry dressing. 2. Await consultation with wound care team regarding available wound care vacs for complex wound 3. Continue antibiotics Objective - Vital Signs Vital signs: Vital Signs Temp 97.9 F 06/23/22 13:33 Pulse 68 06/23/22 13:33 Resp 16 06/23/22 13:33 BP 98/37 06/23/22 13:33 Pulse Ox 98 06/23/22 13:33 FiO2 Intake & Output 06/23/22 06/23/22 06/24/22 06:59 18:59 06:59 Intake Total 118 Output Total 600 300 150 Balance -600 -182 -150 Intake: Oral 118 Output: Urine 600 300 150 Other: Voiding Method Indwelling Catheter Indwelling Catheter Indwelling Catheter # Bowel Movements 1 1 - Labs CBC & Chem 7: 06/24/22 06:54 06/24/22 06:54 Labs: Abnormal Lab Results - Last 24 Hours (Table) 06/23/22 06/23/22 06/23/22 Range/Units 02:00 04:32 04:32 RBC 2.47 L (4.10-5.20) X 10*6/uL Hgb 7.2 L (12.0-15.0) g/dL Hct 23.8 L (37.2-46.3) % MCHC 30.3 L (32.0-37.0) g/dL RDW 18.2 H (11.5-14.5) % Immature Gran # 0.07 H (0.00-0.04) X 10*3/uL Lymphocytes # 0.24 L (0.90-5.00) X 10*3/uL ESR 41 H (0-30) mm/Hr Sodium 132 L (135-145) mmol/L BUN 39.5 H (9.0-27.0) mg/dL Creatinine 2.4 H (0.6-1.5) mg/dL Est GFR (CKD-EPI)AfAm 24.6 L (60.0-200.0) Est GFR (CKD-EPI)NonAf 21.2 L (60.0-200.0) POC Glucose (mg/dL) (70-110) mg/dL Calcium 7.6 L (8.7-10.3) mg/dL AST 109 H (13-35) U/L ALT 67 H (8-44) U/L Alkaline Phosphatase 361 H (41-126) U/L C-Reactive Protein 27.40 H (0.00-0.80) mg/dL Total Protein 4.8 L (6.2-8.2) g/dL Albumin 2.1 L (3.8-4.9) g/dL Albumin/Globulin Ratio 0.77 L (1.60-3.17) g/dL C. difficile (EIA) Intrp Positive A (Negative) 06/23/22 06/23/22 06/23/22 Range/Units 06:54 11:55 16:12 RBC (4.10-5.20) X 10*6/uL Hgb (12.0-15.0) g/dL Hct (37.2-46.3) % MCHC (32.0-37.0) g/dL RDW (11.5-14.5) % Immature Gran # (0.00-0.04) X 10*3/uL Lymphocytes # (0.90-5.00) X 10*3/uL ESR (0-30) mm/Hr Sodium (135-145) mmol/L BUN (9.0-27.0) mg/dL Creatinine (0.6-1.5) mg/dL Est GFR (CKD-EPI)AfAm (60.0-200.0) Est GFR (CKD-EPI)NonAf (60.0-200.0) POC Glucose (mg/dL) 115 H 139 H 141 H (70-110) mg/dL Calcium (8.7-10.3) mg/dL AST (13-35) U/L ALT (8-44) U/L Alkaline Phosphatase (41-126) U/L C-Reactive Protein (0.00-0.80) mg/dL Total Protein (6.2-8.2) g/dL Albumin (3.8-4.9) g/dL Albumin/Globulin Ratio (1.60-3.17) g/dL C. difficile (EIA) Intrp (Negative) 06/23/22 Range/Units 19:16 RBC (4.10-5.20) X 10*6/uL Hgb (12.0-15.0) g/dL Hct (37.2-46.3) % MCHC (32.0-37.0) g/dL RDW (11.5-14.5) % Immature Gran # (0.00-0.04) X 10*3/uL Lymphocytes # (0.90-5.00) X 10*3/uL ESR (0-30) mm/Hr Sodium (135-145) mmol/L BUN (9.0-27.0) mg/dL Creatinine (0.6-1.5) mg/dL Est GFR (CKD-EPI)AfAm (60.0-200.0) Est GFR (CKD-EPI)NonAf (60.0-200.0) POC Glucose (mg/dL) 125 H (70-110) mg/dL Calcium (8.7-10.3) mg/dL AST (13-35) U/L ALT (8-44) U/L Alkaline Phosphatase (41-126) U/L C-Reactive Protein (0.00-0.80) mg/dL Total Protein (6.2-8.2) g/dL Albumin (3.8-4.9) g/dL Albumin/Globulin Ratio (1.60-3.17) g/dL C. difficile (EIA) Intrp (Negative) Microbiology - Last 24 Hours (Table) 06/21/22 22:29 Urine Culture - Preliminary Urine,Voided Gram Neg Bacilli
[2022-06-24 11:56] LABS: Glucose,Whole Blood 137 mg/dL (70-110)
[2022-06-24 16:31] LABS: Glucose,Whole Blood 142 mg/dL (70-110)
--- NOTE | 2022-06-24 18:04 | P.PN ---
Progress Note - Text Progress Note Date: 06/24/22 Chief Complaint: Anemia This is a pleasant 62-year-old patient, follows with Dr. Smooth Bob. Chronic stable medical conditions include diabetes, GERD, essential hypertension, hypothyroid. Chronic low back pain. Ovarian cancer treatment for chemo and radiation treatment. September 2021 was having significant vaginal bleeding. 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 No metastatic disease. She was not felt to be surgical candidate and was to receive 3 cycles of carboplatin/Taxol followed by radiation and 3 additional cycles of the above. She completed radi ation on 03/14/2022. Started back on the carbotaxol April 03 and was status post cycle 6 day 1 on May 16. May 2022: Stroke found in the left coronary radiata on the posterior aspect of left frontal lobe. Was placed on eliquis for atrial fibrillation. On recent admission patient to have a significant wound on the right groin and abdominal pannus. Was seen by Dr. mcdermott from [place] and Dr. Kasper from general surgery. May 31 underwent wound debridement by Dr. Kasper. Cultures were positive for ESBL klebsiella. Covered with vancomycin and meropenem. June 01 patient was transferred to [facility] for further management of deep wounds. Patient now presents here from [facility]. Patient become more lethargic. Difficult to arouse. Hypoxic on room air 82%. Placed on 5 L of oxygen. Patient was vomiting up on arrival of the EMS. Patient states that she is not been eating much. Kidney function is much worse since he has recently. Not eating drinking enough. Wounds are present. Patient rather lethargic during history taking. Tired easily. Patient has been nonambulatory since discharge June 23: Tired. Barely eating. Kidney function is worse. Changed to pured diet. IV fluids to continue. Wound care per surgery and ID. Foul-smelling diarrhea. Positive for C. diff. June 24: Decreased oral intake. Encouraged. On by mouth vancomycin. Some improvement in kidney function. Getting IV fluids. More awake today. Active Medications Acetaminophen (Acetaminophen Tab 325 Mg Tab) 650 mg PO Q4H PRN PRN Reason: Fever Last Admin: 06/22/22 20:45 Dose: 650 mg Hydrocodone Bitart/Acetaminophen (Hydrocodone/Apap 10-325mg 1 Each Tab) 1 each PO Q4HR PRN PRN Reason: Pain Last Admin: 06/24/22 14:23 Dose: 1 each Apixaban (Apixaban 5 Mg Tab) 5 mg PO BID@0800,1600 [facility]; Protocol Last Admin: 06/24/22 16:42 Dose: 5 mg Atorvastatin Calcium (Atorvastatin 40 Mg Tab) 40 mg PO HS@2000 [facility] Last Admin: 06/23/22 19:34 Dose: 40 mg Carvedilol (Carvedilol 6.25 Mg Tab) 6.25 mg PO BID@0800,1600 [facility] Last Admin: 06/24/22 16:43 Dose: 6.25 mg Dextrose/Water (Dextrose 50% Syringe 50 Ml) 25 ml IVP PER PROTOCOL PRN; Raman col PRN Reason: Hypoglycemia Dextrose/Water (Dextrose 50% Syringe 50 Ml) 50 ml IVP PER PROTOCOL PRN; Protocol PRN Reason: Hypoglycemia Sodium Chloride (Saline 0.9%) 1,000 mls @ 130 mls/hr IV .Q7H42M [facility] Last Admin: 06/24/22 12:01 Dose: 130 mls/hr Insulin Aspart (Insulin Aspart (Novolog) 100 Unit/Ml Vial) 0 unit SQ AC-TID [facility]; Protocol Last Admin: 06/24/22 16:50 Dose: Not Given Levothyroxine Sodium (Levothyroxine 100 Mcg Tab) 200 mcg PO DAILY@0800 [facility] Last Admin: 06/24/22 08:48 Dose: 200 mcg Naloxone HCl (Naloxone 0.4 Mg/Ml 1 Ml Vial) 0.2 mg IV Q2M PRN PRN Reason: Opioid Reversal Nitroglycerin (Nitroglycerin Sl Tabs 0.4 Mg Tab) 0.4 mg SUBLINGUAL Q5M PRN PRN Reason: Chest Pain Nystatin (Nystatin 100,000 Unit/Gm Powd 15 Gm) 1 applic TOPICAL BID@0800,1600 [facility]; Protocol Last Admin: 06/24/22 16:43 Dose: 1 applic Ondansetron HCl (Ondansetron 4 Mg/2 Ml Vial) 4 mg IVP Q8HR PRN PRN Reason: Nausea And Vomiting Oxybutynin Chloride (Oxybutynin 10 Mg Tab.Er.24) 10 mg PO DAILY@0800 [facility] Last Admin: 06/24/22 08:48 Dose: 10 mg Pantoprazole Sodium (Pantoprazole 40 Mg Tablet) 40 mg PO HS@2000 [facility] Last Admin: 06/23/22 19:34 Dose: 40 mg Polyethylene Glycol (Polyethylene Glycol 3350 17 Gm Powd.Pack) 17 gm PO DAILY@0800 [facility] Last Admin: 06/24/22 08:30 Dose: Not Given Vancomycin HCl (Vancomycin 125 Mg Capsule) 125 mg PO QID [facility]; Protocol Last Admin: 06/24/22 17:36 Dose: 125 mg Past medical history to include: Atrial fibrillation, diabetes, GERD, hypertension, hypothyroid, ovarian cancer with chemo and radiation treatment. Depression. Stroke. Social history: Current [facility] [place]. Patient started smoking as a teenager and stopped in 1994. No alcohol. Family history: Father of lung cancer Physical examination: VITAL SIGNS: 98, 67, 18, 1 22 x 56, 99% on 3 L GENERAL: Laying in bed, awake, tired EYES: Pupils equal. Conjunctiva normal. HEENT: External appearance of nose and ears normal, oral cavity dry mucous membranes NECK: JVD unable to assess; masses not palpable. HEART: Heart sounds irregular; slight edema. LUNGS: Respiratory rate normal; distant breath sound. ABDOMEN: Soft, nontender, liver spleen not palpable, no masses palpable. Perianal wounds C wound care notes. PSYCH: Answering questions appropriately MUSCULOSKELETAL:No Clubbing/cyanosis;muscles-grossly intact, evidence of OA DERMATOLOGICAL: Deep wound in the abdominal pannus in the right groin. See nursing notes for pictures INVESTIGATIONS, reviewed in the clinical context: June 24: White count 7.9 hemoglobin 7.6 platelets 346 potassium 4.2 BUN 37 creatinine 1.55 June 23: White count 7.9 hemoglobin 7.2 platelets 311 potassium 4.9 creatinine 2.4 CRP 0.77 White count 7.7 hemoglobin 8 platelets 348 sodium 1:30 potassium 4.7 BUN 37 creatinine 1.9 to AST 145 ALT 42 albumin 2.1 EKG tracing personally reviewed by me-personally reviewed by me: Atrial fibrillation. Rate 60 Chest x-ray film personally reviewed by me-portable. Underpenetrated. Borderline cardiomegaly From recent admission: 06/01/2022: BUN 19 creatinine 0.93 MRI brain without contrast: Acute/subacute CVA of the left coronary radiata on the posterior aspect of the left frontal lobe. Nonspecific white matter changes. CT brain: Mild atrophic CT angiography of the brain: Nonspecific 2-D echocardiogram: EF 55-60%, severe LVH Assessment and plan: -Acute metabolic encephalopathy from acute kidney injury: Better -Acute kidney injury combination of prerenal and ATN.: Some improvement Stop metformin. IV fluids -Acute C. diff colitis from recent antibiotics: Slow to respond Oral vancomycin started 125 mg by mouth 4 times a day. -Chronic Large wound on the abdominal pannus and right groin May 31 underwent deep wound debrided. By Dr. Kasper. Consultation to ID and general surgery. -Acute stroke in the left [place] radiata on the posterior aspect of the left frontal lobe. suspected to be embolic from underlying paroxysmal atrial fibrillation, on 05/18/2022 Eliquis. No aspirin. -Persistent atrial fibrillation: Rate controlled eliquis. Coreg 6.25 mg twice a day.. [Cardizem CD 180 mg a day. And digitoxin to be held] -Chronic dysphagia from underlying stroke : Chopped diet -Diabetes mellitus type 2 on oral hypoglycemic Hold metformin. Follow Accu-Cheks -Morbid obesity BMI 51.6 Weight loss measures -GERD Prilosec 20 mg -Essential hypertension, currently blood pressure running low Coreg 6.25 mg twice a day, hold Cardizem -Chronic urinary stress incontinence Ditropan XL 10 mg a day -Hypothyroid Synthroid 200 g a day -Acute on chronic medical debility multifactorial Continue IV fluids. Oral vancomycin. Local wound care. Patient encouraged to increase oral intake. Discussed with nurse.
[2022-06-24 20:54] LABS: Glucose,Whole Blood 140 mg/dL (70-110)
[2022-06-24] MEDS: PANTOPRAZOLE 40 MG TABLET PO SCH (21:03)
[2022-06-24] MEDS: ATORVASTATIN 40 MG TAB PO SCH (21:03)
--- NOTE | 2022-06-24 22:15 | P.PN ---
Subjective Progress Note Date: 06/24/22 CHIEF COMPLAINT: Right groin wound HISTORY OF PRESENT ILLNESS: The patient is a 62 year old female with super morbid obesity presents with radionecrosis of the right groin and complex right groin wound. She is now diagnosed with C. diff colitis. No fevers or chills. She reports ambulating in her room with physical therapy. REVIEW OF ORGAN SYSTEMS: CARDIOVASCULAR: Has hypertensive heart disease. Has hyperlipidemia. Prior cardiac ablation. History of atrial fibrillation. MUSCULOSKELETAL: Has back pain, stiffness or joint arthritis. ENDOCRINE: Has hypothyroidism. Has diabetes type II, insulin dependent. PHYSICAL EXAM: VITALS: Reviewed CONSTITUTIONAL: Well developed and in no acute distress. EYES: Conjuctivae without sclera icterus. Extraocular movements grossly intact. HEAD, EARS, NOSE, THROAT: Moist buccal mucosa. Head is atraumatic, normocephalic. Hears conversational speech. No nasal drainage. RESPIRATORY: Non-labored respirations and equal bilateral excursions. No gross wheezes. CARDIOVASCULAR: Palpable 2+ radial pulses. ABDOMEN: Moderate-sized pannus over 40 pounds. Right groin wound 25 cm x 15 cm with dressing intact. MUSCULOSKELETAL: No clubbing cyanosis. SKIN: Warm and well perfused with good skin turgor. Wound extremely large over 25 x 15 cm in size along the right groin. NEUROLOGIC: Cranial nerves II through XII grossly intact. No focal or lateralizing signs. PSYCH: Appropriate affect. Alert and oriented to person, place and time. Displays appropriate insight. CLINCAL LABS: Reviewed. WBC normal 7.9. Hemoglobin down 8.0-7.2, now 7.6 ASSESSMENT: 1. Right groin complex wound 2. Panniculitis 3. Morbid obesity due to excess calories, BMI 51.6 4. Uterine cancer status post chemoradiation 5. Diabetes type 2, insulin-dependent 6. Chronic history atrial fibrillation 7. Anemia PLAN: 1. Await consultation with wound care management for wound vac options. 2. Antibiotics for C. diff colitis Objective - Vital Signs Vital signs: Vital Signs Temp 98 F 06/24/22 13:14 Pulse 67 06/24/22 13:14 Resp 18 06/24/22 13:14 BP 122/56 06/24/22 13:14 Pulse Ox 99 06/24/22 13:14 FiO2 Intake & Output 08/1306/24/22 06/24/22 18:59 06:59 18:59 Intake Total 118 1276 Output Total 300 150 Balance -182 -150 1276 Intake: Intake, IV Titration 1040 Amount Sodium Chloride 0.9% 1, 1040 000 ml @ 130 mls/hr IV . Q7H42M [facility] Rx#:[id number] Oral 118 236 Output: Urine 300 150 Other: Voiding Method Indwelling Catheter Indwelling Catheter Indwelling Catheter # Bowel Movements 1 1 - Labs CBC & Chem 7: 06/24/22 06:54 06/24/22 06:54 Labs: Abnormal Lab Results - Last 24 Hours (Table) 06/23/22 06/23/22 06/24/22 Range/Units 16:12 19:16 06:54 RBC 2.65 L (3.80-5.40) m/uL Hgb 7.6 L (11.4-16.0) gm/dL Hct 25.2 L (34.0-46.0) % MCHC 30.4 L (31.0-37.0) g/dL RDW 17.6 H (11.5-15.5) % Lymphocytes # 0.2 L (1.0-4.8) k/uL Sodium (137-145) mmol/L BUN (7-17) mg/dL Creatinine (0.52-1.04) mg/dL Glucose (74-99) mg/dL POC Glucose (mg/dL) 141 H 125 H (70-110) mg/dL Calcium (8.4-10.2) mg/dL 06/24/22 06/24/22 06/24/22 Range/Units 06:54 06:54 11:53 RBC (3.80-5.40) m/uL Hgb (11.4-16.0) gm/dL Hct (34.0-46.0) % MCHC (31.0-37.0) g/dL RDW (11.5-15.5) % Lymphocytes # (1.0-4.8) k/uL Sodium 134 L (137-145) mmol/L BUN 37 H (7-17) mg/dL Creatinine 1.55 H (0.52-1.04) mg/dL Glucose 104 H (74-99) mg/dL POC Glucose (mg/dL) 114 H 137 H (70-110) mg/dL Calcium 7.2 L (8.4-10.2) mg/dL Microbiology - Last 24 Hours (Table) 06/21/22 22:29 Urine Culture - Final Urine,Voided Pseudomonas aeruginosa 06/22/22 22:46 Blood Culture - Preliminary Blood No Growth after 24 hours
[2022-06-25 05:23] LABS: African American GFR (CKD) 58 (>60 ml/min/1.73 sqM); Anion Gap 9 mmol/L; Blood Urea Nitrogen 27 mg/dL (7-17); Calcium 7.5 mg/dL (8.4-10.2); Carbon Dioxide 21 mmol/L (22-30); Chloride 106 mmol/L (98-107); Glucose 104 mg/dL (74-99); Non-African American GFR(CKD) 50 (>60 ml/min/1.73 sqM); Potassium 4.2 mmol/L (3.5-5.1); Sodium 136 mmol/L (137-145)
[2022-06-25] MEDS: HYDROcodone/APAP 10-325MG 1 EACH TAB PO PRN ×4 (05:39→20:27)
[2022-06-25] MEDS: SODIUM CHLORIDE 0.9% 1,000 ML IV SCH ×3 (05:41→17:41)
[2022-06-25 07:04] LABS: Glucose,Whole Blood 131 mg/dL (70-110)
--- NOTE | 2022-06-25 07:44 | P.PN ---
Subjective Progress Note Date: 06/24/22 Principal diagnosis: R groin wound and diarrhea Patient is a 62-year-old female with a past medical history significant for uterine cancer status post chemoradiation with significant skin necrosis to the right groin area status post extensive surgery department culture with ESBL E. coli for the patient apparently has come having right therapy subsequently presenting back to the hospital for weakness mental status change and dehydration and apparently the patient also have a diarrhea and stool for significantly positive. On today's evaluation that is 06/24/2022, patient remains to be afebrile, the patient is breathing comfortably on nasal cannula oxygen, the patient denies chest pain or shortness of the cough has been complaining of pain to lower abdominal and groin wound area and diarrhea seemed to have slowed down per the nursing staff Objective - Vital Signs Vital signs: Vital Signs Temp 98 F 06/24/22 13:14 Pulse 67 06/24/22 13:14 Resp 18 06/24/22 13:14 BP 122/56 06/24/22 13:14 Pulse Ox 99 06/24/22 13:14 FiO2 Intake & Output 06/23/22 06/24/22 06/24/22 18:59 06:59 18:59 Intake Total 118 1276 Output Total 300 150 Balance -182 -150 1276 Intake: Intake, IV Titration 1040 Amount Sodium Chloride 0.9% 1, 1040 000 ml @ 130 mls/hr IV . Q7H42M [facility] Rx#:[id number] Oral 118 236 Output: Urine 300 150 Other: Voiding Method Indwelling Catheter Indwelling Catheter Indwelling Catheter # Bowel Movements 1 1 - Exam GENERAL DESCRIPTION: Middle-aged female lying in bed, no distress. No tachypnea or accessory muscle of respiration use. LUNGS: Unlabored breathing. Clear to auscultation anteriorly. No wheeze or crackle. HEART: S1, S2, regular rate and rhythm. No loud murmur ABDOMEN: Soft, no tenderness , did have extensive wound to the right groin covered with the dressing no drainage of the dressing EXTREMITIES: Diffuse swelling bilateral lower extremity. - Labs CBC & Chem 7: 06/24/22 06:54 06/25/22 04:22 Labs: Abnormal Lab Results - Last 24 Hours (Table) 06/23/22 06/23/22 06/24/22 Range/Units 16:12 19:16 06:54 RBC 2.65 L (3.80-5.40) m/uL Hgb 7.6 L (11.4-16.0) gm/dL Hct 25.2 L (34.0-46.0) % MCHC 30.4 L (31.0-37.0) g/dL RDW 17.6 H (11.5-15.5) % Lymphocytes # 0.2 L (1.0-4.8) k/uL Sodium (137-145) mmol/L BUN (7-17) mg/dL Creatinine (0.52-1.04) mg/dL Glucose (74-99) mg/dL POC Glucose (mg/dL) 141 H 125 H (70-110) mg/dL Calcium (8.4-10.2) mg/dL 06/24/22 06/24/22 06/24/22 Range/Units 06:54 06:54 11:53 RBC (3.80-5.40) m/uL Hgb (11.4-16.0) gm/dL Hct (34.0-46.0) % MCHC (31.0-37.0) g/dL RDW (11.5-15.5) % Lymphocytes # (1.0-4.8) k/uL Sodium 134 L (137-145) mmol/L BUN 37 H (7-17) mg/dL Creatinine 1.55 H (0.52-1.04) mg/dL Glucose 104 H (74-99) mg/dL POC Glucose (mg/dL) 114 H 137 H (70-110) mg/dL Calcium 7.2 L (8.4-10.2) mg/dL Microbiology - Last 24 Hours (Table) 06/21/22 22:29 Urine Culture - Final Urine,Voided Pseudomonas aeruginosa 06/22/22 22:46 Blood Culture - Preliminary Blood No Growth after 24 hours Assessment and Plan (1) C. difficile colitis Current Visit: Yes Status: Acute Code(s): A04.72 - ENTEROCOLITIS D/T CLOSTRIDIUM DIFFICILE, NOT SPCF RECUR SNOMED Code(s): 086884078 (2) Right groin wound Current Visit: No Status: Acute Code(s): S31.109A - UNSP OPN WND ABD WALL, UNSP Q W/O PENET PERIT CAV, INIT SNOMED Code(s): 630639432 Plan: 1patient presented to hospital with weakness lethargy which is likely multifactorial possible dehydration as the patient not been eating and drinking he did have elevated BUN and fattening patient also have a positive UA and possible urinary tract infection vs asymptomatic bacteruria as pt has no significant urinary symptoms 2 Patient with a large wound to the right groin area after extensive surgical debridement for radionecrosis with a culture at that time was positive for ESBL and Jacki patient to have a PICC line but no clear documentation that the patient was receiving antibiotic at the long term. 3patient continue follow-up care with wet-to-dry dressing changes 4 Diarrhea and stool for c diff positive , patient will continue with vanco 125mg po q6hr Time with Patient: Less than 30
[2022-06-25] MEDS: NYSTATIN 100,000 UNIT/GM POWD 15 GM TOPICAL SCH ×2 (08:26→16:08)
[2022-06-25] MEDS: APIXABAN 5 MG TAB PO SCH (08:26)
[2022-06-25] MEDS: VANCOMYCIN 125 MG CAPSULE PO SCH ×4 (08:26→22:06)
[2022-06-25] MEDS: carvediloL 6.25 MG TAB PO SCH ×2 (08:26→16:08)
[2022-06-25] MEDS: OXYBUTYNIN 10 MG TAB.ER.24 PO SCH (08:26)
[2022-06-25] MEDS: LEVOTHYROXINE 100 MCG TAB PO SCH (08:26)
[2022-06-25] MEDS: polyethylene glycoL 3350 17 GM POWD.PACK PO SCH (08:27)
[2022-06-25] MEDS: INSULIN ASPART (NovoLOG) 100 UNIT/ML VIAL SQ SCH ×4 (08:27→20:28)
--- NOTE | 2022-06-25 11:36 | P.GSCN ---
History of Present Illness Consult date: 06/25/22 Reason for Consult: Right groin and abdominal wounds Requesting physician: Nathaly Nolasco History of present illness: This patient is post radiation and surgery for cervical cancer. She also is morbidly obese and has a massive pannus. She is post debridement on the right portion. On the left side of the abdomen she however has a large unstageable ulceration. Past Medical History Past Medical History: Atrial Fibrillation, Cancer, Diabetes Mellitus, GERD/Reflux, Hypertension, Thyroid Disorder Additional Past Medical History / Comment(s): Pt states she has had intermittent vaginal bleeding over past one year, NIDDM type II, UTIs, hypothyroid, chronic low back pain, occasional bilateral leg pain at night. Ovarian cancer with chemo and radiation. History of Any Multi-Drug Resistant Organisms: ESBL Year Discovered:: 05/31/22 ESBL MDRO Source:: Groin Past Surgical History: Heart Catheterization, Tonsillectomy, Uterine Ablation Additional Past Surgical History / Comment(s): Nasal fracture with surgery, wisdom teeth extractions. Past Anesthesia/Blood Transfusion Reactions: Postoperative Nausea & Vomiting (PONV) Additional Past Anesthesia/Blood Transfusion Reaction / Comm: Pt received blood this hospitalization without reaction. Past Psychological History: Depression Additional Psychological History / Comment(s): Pt resides alone in an apartment. She uses a walker or cane. She drives. Smoking Status: Former smoker Past Alcohol Use History: None Reported Additional Past Alcohol Use History / Comment(s): PT started smoking as a teen and quit in 1994. Past Drug Use History: None Reported - Past Family History Father Family Medical History: Cancer Additional Family Medical History / Comment(s): Father of lung cancer. He was a smoker. Mother Family Medical History: Vascular Disorder Additional Family Medical History / Comment(s): Mother of a cerebral aneur ysm at the age of 58 yrs. Medications and Allergies Home Medications Medication Instructions Recorded Confirmed Type Levothyroxine Sodium 200 mcg PO DAILY@0800 10/10/21 06/22/22 History Nitroglycerin Sl Tabs [Nitrostat] 0.4 mg SL Q5M PRN 10/10/21 06/22/22 History Omeprazole Magnesium [PriLOSEC OTC] 20 mg PO HS@199905/18/22 06/22/22 History Oxybutynin ER [Ditropan Xl] 10 mg PO DAILY@0800 05/18/22 06/22/22 History carvediloL [Coreg] 25 mg PO BID@0800,1600 05/18/22 06/22/22 History dilTIAZem HCL [Cardizem LA] 180 mg PO DAILY@0800 05/18/22 06/22/22 History metFORMIN HCL ER [Glucophage XR] 500 mg PO TID@0800,1200,1800 05/18/22 06/22/22 History Acetaminophen Tab [Tylenol] 650 mg PO Q4H PRN 06/22/22 06/22/22 History Acetaminophen/Diphenhydramine 2 tab PO HS PRN 06/22/22 06/22/22 History [Tylenol PM 500-25mg] Apixaban [Eliquis] 5 mg PO BID@0800,1600 06/22/22 06/22/22 History Atorvastatin [Lipitor] 40 mg PO HS@199906/22/22 06/22/22 History Digoxin [Lanoxin] 250 mcg PO DAILY@00 06/22/22 06/22/22 History Docusate [Colace] 100 mg PO BID@0800,1600 06/22/22 06/22/22 History Ensure 1 can PO BID@0800,1600 06/22/22 06/22/22 History HYDROcodone/APAP 10-325MG [Severy 1 tab PO Q4HR PRN 06/22/22 06/22/22 History 10-325] Insulin Lispro [humaLOG Kwikpen] See Protocol SQ ACHS 06/22/22 06/22/22 History Nystatin 100,000 Unit/gm Powd 1 applic TOPICAL BID@0800,1600 06/22/22 06/22/22 History [Mycostatin Powder] Pro Stat 1 can PO BID@0800,1600 06/22/22 06/22/22 History oxyCODONE HCL 5 mg PO DAILY PRN 06/22/22 06/22/22 History polyethylene glycoL 3350 17 gm PO DAILY@0800 06/22/22 06/22/22 History [Polyethylene Glycol 3350] Allergies Allergy/AdvReac Type Severity Reaction Status Date / Time apixaban [From Eliquis] AdvReac Unsure, Verified 06/22/22 07:12 told by [employer]ored Transport Service Manager not to take Surgical - Exam Osteopathic Statement: *. No significant issues noted on an osteopathic structural exam other than those noted in the History and Physical/Consult. Vital Signs Temp Pulse Resp BP Pulse Ox 97.6 F 61 16 97/51 98 06/21/22 21:53 06/21/22 21:53 06/21/22 21:53 06/21/22 21:53 06/21/22 21:53 - General obese - Abdomen Patient has a large wound on the right groin area beneath the pannus extending all away from the right iliac crest laterally to above and within a couple of centimeters of the labia. It is about 4 cm in depth and about 5 cm wide. There is no grossly necrotic material. There is a mild amount of slough within the wound laterally. The rest is quite clean. On the undersurface on the left side of the pannus there is a dark area that is excoriated and its depth is impossib le to determine at this time. Results - Labs 06/24/22 06:54 06/25/22 04:22 Abnormal Lab Results - Last 24 Hours (Table) 06/24/22 06/24/22 06/24/22 Range/Units 11:53 16:30 20:52 Sodium (137-145) mmol/L Carbon Dioxide (22-30) mmol/L BUN (7-17) mg/dL Creatinine (0.52-1.04) mg/dL Glucose (74-99) mg/dL POC Glucose (mg/dL) 137 H 142 H 140 H (70-110) mg/dL Calcium (8.4-10.2) mg/dL 06/25/22 06/25/22 Range/Units 04:22 07:03 Sodium 136 L (137-145) mmol/L Carbon Dioxide 21 L (22-30) mmol/L BUN 27 H (7-17) mg/dL Creatinine 1.16 H (0.52-1.04) mg/dL Glucose 104 H (74-99) mg/dL POC Glucose (mg/dL) 131 H (70-110) mg/dL Calcium 7.5 L (8.4-10.2) mg/dL Microbiology - Last 24 Hours (Table) 06/22/22 22:46 Blood Culture - Preliminary Blood No Growth after 48 hours 06/21/22 22:29 Urine Culture - Final Urine,Voided Pseudomonas aeruginosa Diabetes panel 06/25/22 Range/Units 04:22 Sodium 136 L (137-145) mmol/L Potassium 4.2 (3.5-5.1) mmol/L Chloride 106 (98-107) mmol/L Carbon Dioxide 21 L (22-30) mmol/L BUN 27 H (7-17) mg/dL Creatinine 1.16 H (0.52-1.04) mg/dL Glucose 104 H (74-99) mg/dL Calcium 7.5 L (8.4-10.2) mg/dL Calcium panel 06/25/22 Range/Units 04:22 Calcium 7.5 L (8.4-10.2) mg/dL Pituitary panel 06/25/22 Range/Units 04:22 Sodium 136 L (137-145) mmol/L Potassium 4.2 (3.5-5.1) mmol/L Chloride 106 (98-107) mmol/L Carbon Dioxide 21 L (22-30) mmol/L BUN 27 H (7-17) mg/dL Creatinine 1.16 H (0.52-1.04) mg/dL Glucose 104 H (74-99) mg/dL Calcium 7.5 L (8.4-10.2) mg/dL Adrenal panel 06/25/22 Range/Units 04:22 Sodium 136 L (137-145) mmol/L Potassium 4.2 (3.5-5.1) mmol/L Chloride 106 (98-107) mmol/L Carbon Dioxide 21 L (22-30) mmol/L BUN 27 H (7-17) mg/dL Creatinine 1.16 H (0.52-1.04) mg/dL Glucose 104 H (74-99) mg/dL Calcium 7.5 L (8.4-10.2) mg/dL Assessment and Plan (1) Non-healing ulcer of multiple sites with fat layer exposed Current Visit: No Status: Acute Code(s): L98.492 - NON-PRS CHRONIC ULCER OF SKIN OF SITES W FAT LAYER EXPOSED SNOMED Code(s): 46136472 (2) Right groin wound Current Visit: No Status: Acute Code(s): S31.109A - UNSP OPN WND ABD WALL, UNSP Q W/O PENET PERIT CAV, INIT SNOMED Code(s): 080277031 (3) Soft tissue radionecrosis Current Visit: No Status: Acute Priority: High Code(s): L59.8 - OTH DISRD OF THE SKIN, SUBCU RELATED TO RADIATION; Y84.2 - RADIOLOG PROC/RADIOTHRPY CAUSE ABN REACT/COMPL, W/O MISADVNT SNOMED Code(s): 11808634 Plan: The wounds are rather massive as is her abdominal pannus. I would rate her p rognosis as fair to obtain healing over the next 6-9 months. #1 I would start with a wound VAC if it can be sealed for the open wound on the right side. If it cannot be sealed I would utilize Opticel silver or similar product and 3 times week dressing changes. #2 the left undersurface of the pannus should be followed by general surgery with debridement if it shows a demarcation. In the meantime I would utilize triad cream over it and remove moisture from the pannus with AVD pads which should be changed frequently. #3 the area under the pannus should be observed closely. If significant redness occurs then an antifungal agent should be considered. #4 the patient would deftly benefit from ongoing follow-up by wound specialty clinic.
[2022-06-25 12:45] LABS: Glucose,Whole Blood 149 mg/dL (70-110)
--- NOTE | 2022-06-25 15:05 | P.PN ---
Subjective Progress Note Date: 06/25/22 CHIEF COMPLAINT: Right groin HISTORY OF PRESENT ILLNESS: The patient is a 62 year old female with super m orbid obesity presents with radionecrosis of the right groin and complex right groin wound. The patient has a new necrotic area on the left side of the abdomen and underneath the pannus. She is now diagnosed with C. diff colitis. Afebrile. Sodium is 136 potassium 4.2 creatinine 1.16 PHYSICAL EXAM: VITAL SIGNS: Reviewed GENERAL: Well-developed in no acute distress. HEENT: No sclera icterus. Extraocular movements grossly intact. Moist buccal mucosa. Head is atraumatic, normocephalic. Hears conversational speech. No nasal drainage. NECK: Supple without lymphadenopathy. CHEST: Non-labored respirations and equal bilateral excursions. CARDIOVASCULAR: Palpable 2+ radial pulses. ABDOMEN: Large pannus. right groin wound. Necrotic tissue noted under the left side of the pannus MUSCULOSKELETAL: No clubbing or cyanosis. NEUROLOGIC: No focal or lateralizing signs. Cranial nerves II through XII grossly intact. PSYCH: Appropriate affect. Alert and oriented to person, place and time. SKIN: Well perfused. Good skin turgor. ASSESSMENT: 1. Right groin complex wound 2. Panniculitis 3. Morbid obesity due to excess calories, BMI 51.6 4. Uterine cancer status post chemoradiation 5. Diabetes type 2, insulin-dependent 6. Chronic history atrial fibrillation 7. Anemia 8. C. diff colitis 9. Left necrotic tissue under the pannus PLAN: -Patient will require surgical intervention of the necrotic tissue under the left side of the pannus -Further recommendations forthcoming per surgeon -Appreciate wound care service recommendations -Continue treatment for C. diff colitis -Hold Eliquis for surgical intervention Physician Bank Appraiser note has been reviewed by physician. Signing provider agrees with the documented findings, assessment, and plan of care. Objective - Vital Signs Vital signs: Vital Signs Temp 97.6 F 06/25/22 14:51 Pulse 82 06/25/22 14:51 Resp 18 06/25/22 14:51 BP 139/79 06/25/22 14:51 Pulse Ox 95 06/25/22 14:51 FiO2 Intake & Output 06/24/22 06/25/22 06/25/22 18:59 06:59 18:59 Intake Total 1276 236 Output Total 600 200 330 Balance 676 -200 -94 Intake: Intake, IV Titration 1040 Amount Sodium Chloride 0.9% 1, 1040 000 ml @ 130 mls/hr IV . Q7H42M [facility] Rx#:[id number] Oral 236 236 Output: Urine 600 200 330 Other: Voiding Method Indwelling Catheter Indwelling Catheter Indwelling Catheter - Labs CBC & Chem 7: 06/24/22 06:54 06/25/22 04:22 Labs: Abnormal Lab Results - Last 24 Hours (Table) 06/24/22 06/24/22 06/25/22 Range/Units 16:30 20:52 04:22 Sodium 136 L (137-145) mmol/L Carbon Dioxide 21 L (22-30) mmol/L BUN 27 H (7-17) mg/dL Creatinine 1.16 H (0.52-1.04) mg/dL Glucose 104 H (74-99) mg/dL POC Glucose (mg/dL) 142 H 140 H (70-110) mg/dL Calcium 7.5 L (8.4-10.2) mg/dL 06/25/22 06/25/22 Range/Units 07:03 12:44 Sodium (137-145) mmol/L Carbon Dioxide (22-30) mmol/L BUN (7-17) mg/dL Creatinine (0.52-1.04) mg/dL Glucose (74-99) mg/dL POC Glucose (mg/dL) 131 H 149 H (70-110) mg/dL Calcium (8.4-10.2) mg/dL Microbiology - Last 24 Hours (Table) 06/22/22 22:46 Blood Culture - Preliminary Blood No Growth after 48 hours 06/21/22 22:29 Urine Culture - Final Urine,Voided Pseudomonas aeruginosa
[2022-06-25 17:24] LABS: Glucose,Whole Blood 150 mg/dL (70-110)
--- NOTE | 2022-06-25 18:22 | P.PN ---
Progress Note - Text Progress Note Date: 06/25/22 Chief Complaint: Anemia This is a pleasant 62-year-old patient, follows with Dr. Smooth Bob. Chronic stable medical conditions include diabetes, GERD, essential hypertension, hypothyroid. Chronic low back pain. Ovarian cancer treatment for chemo and radiation treatment. September 2021 was having significant vaginal bleeding. 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 No metastatic disease. She was not felt to be surgical candidate and was to receive 3 cycles of carboplatin/Taxol followed by radiation and 3 additional cycles of the above. She completed radi ation on 03/14/2022. Started back on the carbotaxol April 03 and was status post cycle 6 day 1 on May 16. May 2022: Stroke found in the left coronary radiata on the posterior aspect of left frontal lobe. Was placed on eliquis for atrial fibrillation. On recent admission patient to have a significant wound on the right groin and abdominal pannus. Was seen by Dr. mcdermott from [place] and Dr. Kasper from general surgery. May 31 underwent wound debridement by Dr. Kasper. Cultures were positive for ESBL klebsiella. Covered with vancomycin and meropenem. June 01 patient was transferred to [facility] for further management of deep wounds. Patient now presents here from [facility]. Patient become more lethargic. Difficult to arouse. Hypoxic on room air 82%. Placed on 5 L of oxygen. Patient was vomiting up on arrival of the EMS. Patient states that she is not been eating much. Kidney function is much worse since he has recently. Not eating drinking enough. Wounds are present. Patient rather lethargic during history taking. Tired easily. Patient has been nonambulatory since discharge June 23: Tired. Barely eating. Kidney function is worse. Changed to pured diet. IV fluids to continue. Wound care per surgery and ID. Foul-smelling diarrhea. Positive for C. diff. June 24: Decreased oral intake. Encouraged. On by mouth vancomycin. Some improvement in kidney function. Getting IV fluids. More awake today. June 25: For more awake. Does not like hospital food. Patient seen by the wound care team in general surgery. General surgery is pending for debridement below the pannus. Eliquis held. Also plan is to try a wound VAC. Patient encouraged to eat. Diarrhea. C. diff better. Only 2 bowel movements since yesterday evening. Kidney function improving. IV fluids cutback. Active Medications Acetaminophen (Acetaminophen Tab 325 Mg Tab) 650 mg PO Q4H PRN PRN Reason: Fever Last Admin: 06/22/22 20:45 Dose: 650 mg Hydrocodone Bitart/Acetaminophen (Hydrocodone/Apap 10-325mg 1 Each Tab) 1 each PO Q4HR PRN PRN Reason: Pain Last Admin: 06/25/22 16:28 Dose: 1 each Atorvastatin Calcium (Atorvastatin 40 Mg Tab) 40 mg PO HS@1999 [facility] Last Admin: 06/24/22 21:03 Dose: 40 mg Carvedilol (Carvedilol 6.25 Mg Tab) 6.25 mg PO BID@0800,1600 [facility] Last Admin: 06/25/22 16:08 Dose: 6.25 mg Dextrose/Water (Dextrose 50% Syringe 50 Ml) 25 ml IVP PER PROTOCOL PRN; Protocol PRN Reason: Hypoglycemia Dextrose/Water (Dextrose 50% Syringe 50 Ml) 50 ml IVP PER PROTOCOL PRN; Protocol PRN Reason: Hypoglycemia Sodium Chloride (Saline 0.9%) 1,000 mls @ 130 mls/hr IV .Q7H42M [facility] Last Admin: 06/25/22 17:41 Dose: 130 mls/hr Insulin Aspart (Insulin Aspart (Novolog) 100 Unit/Ml Vial) 0 unit SQ AC-TID [facility]; Protocol Last Admin: 06/25/22 17:25 Dose: Not Given Levothyroxine Sodium (Levothyroxine 100 Mcg Tab) 200 mcg PO DAILY@0800 [facility] Last Admin: 06/25/22 08:26 Dose: 200 mcg Multi-Ingred Cream/Lotion/Oil/Oint (Hydrophilic Cream 180 Gm Tube) 1 applic TOPICAL DAILY [facility]; Protocol Naloxone HCl (Naloxone 0.4 Mg/Ml 1 Ml Vial) 0.2 mg IV Q2M PRN PRN Reason: Opioid Reversal Nitroglycerin (Nitroglycerin Sl Tabs 0.4 Mg Tab) 0.4 mg SUBLINGUAL Q5M PRN PRN Reason: Chest Pain Nystatin (Nystatin 100,000 Unit/Gm Powd 15 Gm) 1 applic TOPICAL BID@0800,1600 [facility]; Protocol Last Admin: 06/25/22 16:08 Dose: 1 applic Ondansetron HCl (Ondansetron 4 Mg/2 Ml Vial) 4 mg IVP Q8HR PRN PRN Reason: Nausea And Vomiting Oxybutynin Chloride (Oxybutynin 10 Mg Tab.Er.24) 10 mg PO DAILY@0800 [facility] Last Admin: 06/25/22 08:26 Dose: 10 mg Pantoprazole Sodium (Pantoprazole 40 Mg Tablet) 40 mg PO HS@2000 [facility] Last Admin: 06/24/22 21:03 Dose: 40 mg Polyethylene Glycol (Polyethylene Glycol 3350 17 Gm Powd.Pack) 17 gm PO DAILY@0800 [facility] Last Admin: 06/25/22 08:27 Dose: Not Given Vancomycin HCl (Vancomycin 125 Mg Capsule) 125 mg PO QID [facility]; Protocol Last Admin: 06/25/22 17:40 Dose: 125 mg Past medical history to include: Atrial fibrillation, diabetes, GERD, hypertension, hypothyroid, ovarian cancer with chemo and radiation treatment. Depression. Stroke. Social history: Current the [facility] [employer] [facility] [employer] [place]. Patient started smoking as a teenager and stopped in 1994. No alcohol. Family history: Father of lung cancer Physical examination: VITAL SIGNS: 97.6, 92, 18, 139/79, 95% room air GENERAL: Laying in bed, awake, tired EYES: Pupils equal. Conjunctiva normal. HEENT: External appearance of nose and ears normal, oral cavity dry mucous membranes NECK: JVD unable to assess; masses not palpable. HEART: Heart sounds irregular; slight edema. LUNGS: Respiratory rate normal; distant breath sound. ABDOMEN: Soft, nontender, liver spleen not palpable, no masses palpable. Perianal wounds C wound care notes. PSYCH: Answering questions appropriately MUSCULOSKELETAL:No Clubbing/cyanosis;muscles-grossly intact, evidence of OA DERMATOLOGICAL: Deep wound in the abdominal pannus and in the right groin. See nursing notes for pictures INVESTIGATIONS, reviewed in the clinical context: June 25: Potassium 4.2 BUN 27 creatinine 1.16 June 24: White count 7.9 hemoglobin 7.6 platelets 346 potassium 4.2 BUN 37 creatinine 1.55 June 23: White count 7.9 hemoglobin 7.2 platelets 311 potassium 4.9 creatinine 2.4 CRP 0.77 White count 7.7 hemoglobin 8 platelets 348 sodium 1:30 potassium 4.7 BUN 37 creatinine 1.9 to AST 145 ALT 42 albumin 2.1 EKG tracing personally reviewed by me-personally reviewed by me: Atrial fibrillation. Rate 60 Chest x-ray film personally reviewed by me-portable. Underpenetrated. Borderline cardiomegaly From recent admission: 06/01/2022: BUN 19 creatinine 0.93 MRI brain without contrast: Acute/subacute CVA of the left coronary radiata on the posterior aspect of the left frontal lobe. Nonspecific white matter changes. CT brain: Mild atrophic CT angiography of the brain: Nonspecific 2-D echocardiogram: EF 55-60%, severe LVH Assessment and plan: -Acute metabolic encephalopathy from acute kidney injury: Better -Acute kidney injury combination of prerenal and ATN.: Improving Stop metformin. IV fluids -Acute C. diff colitis from recent antibiotics: Better Oral vancomycin started 125 mg by mouth 4 times a day. -Chronic Large wound on the abdominal pannus and right groin: Worsening Plan from wound VAC on the right groin wound. Possible debridement of the pannus wound. -Acute stroke in the left [place] radiata on the posterior aspect of the left frontal lobe. suspected to be embolic from underlying paroxysmal atrial fibrillation, on 05/18/2022 Eliquis held for debridement. No aspirin. -Persistent atrial fibrillation: Rate controlled eliquis. Coreg 6.25 mg twice a day.. [Cardizem CD 180 mg a day. And digi toxin to be held] -Chronic dysphagia from underlying stroke : Chopped diet -Diabetes mellitus type 2 on oral hypoglycemic Hold metformin. Follow Accu-Cheks -Morbid obesity BMI 51.6 Weight loss measures -GERD Prilosec 20 mg -Essential hypertension, currently blood pressure running low Coreg 6.25 mg twice a day, hold Cardizem -Chronic urinary stress incontinence Ditropan XL 10 mg a day -Hypothyroid Synthroid 200 g a day -Acute on chronic medical debility multifactorial Eliquis being held for deep). Cutback IV fluids. Discussed with the patient. Follow labs. Discussed with the patient. Questions answered.
[2022-06-25] MEDS: ATORVASTATIN 40 MG TAB PO SCH (19:34)
[2022-06-25] MEDS: PANTOPRAZOLE 40 MG TABLET PO SCH (19:34)
[2022-06-25 19:52] LABS: Glucose,Whole Blood 152 mg/dL (70-110)
[2022-06-26] MEDS: SODIUM CHLORIDE 0.9% 1,000 ML IV SCH ×3 (00:15→17:04)
[2022-06-26] MEDS: HYDROcodone/APAP 10-325MG 1 EACH TAB PO PRN ×5 (00:55→21:39)
[2022-06-26 07:22] LABS: Glucose,Whole Blood 117 mg/dL (70-110)
--- NOTE | 2022-06-26 08:22 | P.PN ---
Subjective Progress Note Date: 06/25/22 Principal diagnosis: R groin wound and diarrhea Patient is a 62-year-old female with a past medical history significant for uterine cancer status post chemoradiation with significant skin necrosis to the right groin area status post extensive surgery department culture with ESBL E. coli for the patient apparently has come having right therapy subsequently presenting back to the hospital for weakness mental status change and dehydration and apparently the patient also have a diarrhea and stool for significantly positive. On today's evaluation that is 06/25/2022, patient denies any fever or any chills, the patient is breathing comfortably on nasal cannula oxygen, the patient denies chest pain or shortness of the cough, no worsening pain to the right groin wound area and diarrhea has slowed down Objective - Vital Signs Vital signs: Vital Signs Temp 97.8 F 06/25/22 07:00 Pulse 82 06/25/22 07:00 Resp 18 06/25/22 07:00 BP 128/69 06/25/22 07:00 Pulse Ox 94 L 06/25/22 07:00 FiO2 Intake & Output 06/24/22 06/25/22 06/25/22 18:59 06:59 18:59 Intake Total 1276 118 Output Total 600 200 Balance 676 -200 118 Intake: Intake, IV Titration 1040 Amount Sodium Chloride 0.9% 1, 1040 000 ml @ 130 mls/hr IV . Q7H42M COUNTS INCLUDE 234 BEDS AT THE [facility] Rx#:[id number] Oral 236 118 Output: Urine 600 200 Other: Voiding Method Indwelling Catheter Indwelling Catheter Indwelling Catheter - Exam GENERAL DESCRIPTION: Middle-aged female lying in bed, no distress. No tachypnea or accessory muscle of respiration use. LUNGS: Unlabored breathing. Clear to auscultation anteriorly. No wheeze or crackle. HEART: S1, S2, regular rate and rhythm. No loud murmur ABDOMEN: Soft, no tenderness , did have extensive wound to the right groin covered with the dressing no drainage of the dressing EXTREMITIES: Diffuse swelling bilateral lower extremity. - Labs CBC & Chem 7: 06/24/22 06:54 06/25/22 04:22 Labs: Abnormal Lab Results - Last 24 Hours (Table) 06/24/22 06/24/22 06/25/22 Range/Units 16:30 20:52 04:22 Sodium 136 L (137-145) mmol/L Carbon Dioxide 21 L (22-30) mmol/L BUN 27 H (7-17) mg/dL Creatinine 1.16 H (0.52-1.04) mg/dL Glucose 104 H (74-99) mg/dL POC Glucose (mg/dL) 142 H 140 H (70-110) mg/dL Calcium 7.5 L (8.4-10.2) mg/dL 06/25/22 Range/Units 07:03 Sodium (137-145) mmol/L Carbon Dioxide (22-30) mmol/L BUN (7-17) mg/dL Creatinine (0.52-1.04) mg/dL Glucose (74-99) mg/dL POC Glucose (mg/dL) 131 H (70-110) mg/dL Calcium (8.4-10.2) mg/dL Microbiology - Last 24 Hours (Table) 06/22/22 22:46 Blood Culture - Preliminary Blood No Growth after 48 hours 06/21/22 22:29 Urine Culture - Final Urine,Voided Pseudomonas aeruginosa Assessment and Plan (1) C. difficile colitis Current Visit: Yes Status: Acute Code(s): A04.72 - ENTEROCOLITIS D/T CLOSTRIDIUM DIFFICILE, NOT SPCF RECUR SNOMED Code(s): 594959277 (2) Right groin wound Current Visit: No Status: Acute Code(s): S31.109A - UNSP OPN WND ABD WALL, UNSP Q W/O PENET PERIT CAV, INIT SNOMED Code(s): 111909419 Plan: 1patient presented to hospital with weakness lethargy which is likely multifactorial possible dehydration as the patient not been eating and drinking he did have elevated BUN and fattening patient also have a positive UA and possible urinary tract infection vs asymptomatic bacteruria as pt has no significant urinary symptoms 2 Patient with a large wound to the right groin area after extensive surgical debridement for radionecrosis with a culture at that time was positive for ESBL and Jacki for the patient has completed her antibiotic therapy 3patient did have an area of necrosis on the left lower abdominal wall that been a surgical debridement 4patient with C. diff colitis, patient will continue with vanco 125mg po q6hr Time with Patient: Less than 30
[2022-06-26] MEDS: LEVOTHYROXINE 100 MCG TAB PO SCH (09:44)
[2022-06-26] MEDS: VANCOMYCIN 125 MG CAPSULE PO SCH ×4 (09:44→21:40)
[2022-06-26] MEDS: OXYBUTYNIN 10 MG TAB.ER.24 PO SCH (09:44)
[2022-06-26] MEDS: carvediloL 6.25 MG TAB PO SCH ×2 (09:44→17:04)
[2022-06-26] MEDS: NYSTATIN 100,000 UNIT/GM POWD 15 GM TOPICAL SCH ×2 (09:48→17:05)
[2022-06-26] MEDS: polyethylene glycoL 3350 17 GM POWD.PACK PO SCH (09:49)
[2022-06-26] MEDS: ENOXAPARIN 120 MG/0.8 ML SYRINGE SQ SCH ×2 (11:15→21:40)
[2022-06-26 12:00] LABS: Glucose,Whole Blood 136 mg/dL (70-110)
--- NOTE | 2022-06-26 12:58 | P.PN ---
Subjective Progress Note Date: 06/26/22 CHIEF COMPLAINT: Right groin HISTORY OF PRESENT ILLNESS: The patient is a 62 year old female with super m orbid obesity presents with radionecrosis of the right groin and complex right groin wound. The patient has a new necrotic area on the left side of the abdomen and underneath the pannus. She is now diagnosed with C. diff colitis. Patient was seen by wound care service and ID service. Afebrile. No new labs. Medicine service has added Lovenox for DVT prophylaxis due to patient's history of stroke and underlying A. fib. PHYSICAL EXAM: VITAL SIGNS: Reviewed GENERAL: Well-developed in no acute distress. HEENT: No sclera icterus. Extraocular movements grossly intact. Moist buccal mucosa. Head is atraumatic, normocephalic. Hears conversational speech. No nasal drainage. NECK: Supple without lymphadenopathy. CHEST: Non-labored respirations and equal bilateral excursions. CARDIOVASCULAR: Palpable 2+ radial pulses. ABDOMEN: Large pannus. right groin wound. Necrotic tissue noted under the left side of the pannus MUSCULOSKELETAL: No clubbing or cyanosis. NEUROLOGIC: No focal or lateralizing signs. Cranial nerves II through XII grossly intact. PSYCH: Appropriate affect. Alert and oriented to person, place and time. SKIN: Well perfused. Good skin turgor. ASSESSMENT: 1. Right groin complex wound 2. Panniculitis 3. Morbid obesity due to excess calories, BMI 51.6 4. Uterine cancer status post chemoradiation 5. Diabetes type 2, insulin-dependent 6. Chronic history atrial fibrillation 7. Anemia 8. C. diff colitis 9. Left necrotic tissue under the pannus PLAN: -Patient scheduled for debridement of the abdominal pannus and right groin on 06/28/[address] Nolasco. Patient will have wound VAC placed in the OR. -Continue local wound care -Continue treatment for C. diff colitis -Hold Eliquis for surgical intervention Physician Pie Bottomer note has been reviewed by physician. Signing provider agrees with the documented findings, assessment, and plan of care. Objective - Vital Signs Vital signs: Vital Signs Temp 97.6 F 06/26/22 06:45 Pulse 87 06/26/22 06:45 Resp 18 06/26/22 06:45 BP 122/80 06/26/22 06:45 Pulse Ox 95 06/26/22 06:45 FiO2 Intake & Output 06/25/22 06/26/22 06/26/22 18:59 06:59 18:59 Intake Total 1394 Output Total 710 600 Balance 684 -600 Weight 145.15 kg Intake: Intake, IV Titration 1040 Amount Sodium Chloride 0.9% 1, 1040 000 ml @ 130 mls/hr IV . Q7H42M [facility] Rx#:[id number] Oral 354 Output: Urine 710 600 Other: Voiding Method Indwelling Catheter Indwelling Catheter Indwelling Catheter # Bowel Movements 0 - Labs CBC & Chem 7: 06/24/22 06:54 06/25/22 04:22 Labs: Abnormal Lab Results - Last 24 Hours (Table) 06/25/22 06/25/22 06/26/22 Range/Units 17:22 19:51 07:21 POC Glucose (mg/dL) 150 H 152 H 117 H (70-110) mg/dL 06/26/22 Range/Units 11:59 POC Glucose (mg/dL) 136 H (70-110) mg/dL Microbiology - Last 24 Hours (Table) 06/22/22 22:46 Blood Culture - Preliminary Blood No Growth after 72 hours
[2022-06-26] MEDS: INSULIN ASPART (NovoLOG) 100 UNIT/ML VIAL SQ SCH ×2 (13:06→17:23)
[2022-06-26] MEDS: HYDROPHILIC CREAM 180 GM TUBE TOPICAL SCH (17:05)
[2022-06-26 17:11] LABS: Glucose,Whole Blood 131 mg/dL (70-110)
--- NOTE | 2022-06-26 17:33 | P.PN ---
Progress Note - Text Progress Note Date: 06/26/22 Chief Complaint: Anemia This is a pleasant 62-year-old patient, follows with Dr. Smooth Bob. Chronic stable medical conditions include diabetes, GERD, essential hypertension, hypothyroid. Chronic low back pain. Ovarian cancer treatment for chemo and radiation treatment. September 2021 was having significant vaginal bleeding. 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 No metastatic disease. She was not felt to be surgical candidate and was to receive 3 cycles of carboplatin/Taxol followed by radiation and 3 additional cycles of the above. She completed radi ation on 03/14/2022. Started back on the carbotaxol April 03 and was status post cycle 6 day 1 on May 16. May 2022: Stroke found in the left coronary radiata on the posterior aspect of left frontal lobe. Was placed on eliquis for atrial fibrillation. On recent admission patient to have a significant wound on the right groin and abdominal pannus. Was seen by Dr. mcdermott from [place] and Dr. Kasper from general surgery. May 31 underwent wound debridement by Dr. Kasper. Cultures were positive for ESBL klebsiella. Covered with vancomycin and meropenem. June 01 patient was transferred to [facility] for further management of deep wounds. Patient now presents here from [facility]. Patient become more lethargic. Difficult to arouse. Hypoxic on room air 82%. Placed on 5 L of oxygen. Patient was vomiting up on arrival of the EMS. Patient states that she is not been eating much. Kidney function is much worse since he has recently. Not eating drinking enough. Wounds are present. Patient rather lethargic during history taking. Tired easily. Patient has been nonambulatory since discharge June 23: Tired. Barely eating. Kidney function is worse. Changed to pured diet. IV fluids to continue. Wound care per surgery and ID. Foul-smelling diarrhea. Positive for C. diff. June 24: Decreased oral intake. Encouraged. On by mouth vancomycin. Some improvement in kidney function. Getting IV fluids. More awake today. June 25: For more awake. Does not like hospital food. Patient seen by the wound care team in general surgery. General surgery is pending for debridement below the pannus. Eliquis held. Also plan is to try a wound VAC. Patient encouraged to eat. Diarrhea. C. diff better. Only 2 bowel movements since yesterday evening. Kidney function improving. IV fluids cutback. June 26: Patient be placed on Lovenox subcu every 12 to bridge until the evening before the procedure that is on . Discussed with the patient and nurse. Oral intake fair. Wound care per surgery and wound care team. Diarrhea is better. Active Medications Acetaminophen (Acetaminophen Tab 325 Mg Tab) 650 mg PO Q4H PRN PRN Reason: Fever Last Admin: 06/22/22 20:45 Dose: 650 mg Hydrocodone Bitart/Acetaminophen (Hydrocodone/Apap 10-325mg 1 Each Tab) 1 each PO Q4HR PRN PRN Reason: Pain Last Admin: 06/26/22 17:03 Dose: 1 each Atorvastatin Calcium (Atorvastatin 40 Mg Tab) 40 mg PO HS@2000 [facility] Last Admin: 06/25/22 19:34 Dose: 40 mg Carvedilol (Carvedilol 6.25 Mg Tab) 6.25 mg PO BID@0800,1600 [facility] Last Admin: 06/26/22 17:04 Dose: 6.25 mg Dextrose/Water (Dextrose 50% Syringe 50 Ml) 25 ml IVP PER PROTOCOL PRN; Protocol PRN Reason: Hypoglycemia Dextrose/Water (Dextrose 50% Syringe 50 Ml) 50 ml IVP PER PROTOCOL PRN; Protocol PRN Reason: Hypoglycemia Enoxaparin Sodium (Enoxaparin 120 Mg/0.8 Ml Syringe) 120 mg SQ Q12HR [facility] Stop: 06/27/22 09:01 Last Admin: 06/26/22 11:15 Dose: 120 mg Sodium Chloride (Saline 0.9%) 1,000 mls @ 130 mls/hr IV .Q7H42M [facility] Last Admin: 06/26/22 17:04 Dose: 130 mls/hr Insulin Aspart (Insulin Aspart (Novolog) 100 Unit/Ml Vial) 0 unit SQ AC-TID [facility]; Protocol Last Admin: 06/26/22 17:23 Dose: Not Given Levothyroxine Sodium (Levothyroxine 100 Mcg Tab) 200 mcg PO DAILY@0800 [facility] Last Admin: 06/26/22 09:44 Dose: 200 mcg Multi-Ingred Cream/Lotion/Oil/Oint (Hydrophilic Cream 180 Gm Tube) 1 applic TOPICAL DAILY [facility]; Protocol Last Admin: 06/26/22 17:05 Dose: 1 applic Naloxone HCl (Naloxone 0.4 Mg/Ml 1 Ml Vial) 0.2 mg IV Q2M PRN PRN Reason: Opioid Reversal Nitroglycerin (Nitroglycerin Sl Tabs 0.4 Mg Tab) 0.4 mg SUBLINGUAL Q5M PRN PRN Reason: Chest Pain Nystatin (Nystatin 100,000 Unit/Gm Powd 15 Gm) 1 applic TOPICAL BID@0800,1600 [facility]; Protocol Last Admin: 06/26/22 17:05 Dose: 1 applic Ondansetron HCl (Ondansetron 4 Mg/2 Ml Vial) 4 mg IVP Q8HR PRN PRN Reason: Nausea And Vomiting Oxybutynin Chloride (Oxybutynin 10 Mg Tab.Er.24) 10 mg PO DAILY@0800 [facility] Last Admin: 06/26/22 09:44 Dose: 10 mg Pantoprazole Sodium (Pantoprazole 40 Mg Tablet) 40 mg PO HS@2000 [facility] Last Admin: 06/25/22 19:34 Dose: 40 mg Polyethylene Glycol (Polyethylene Glycol 3350 17 Gm Powd.Pack) 17 gm PO DAILY@0800 [facility] Last Admin: 06/26/22 09:49 Dose: Not Given Vancomycin HCl (Vancomycin 125 Mg Capsule) 125 mg PO QID [facility]; Protocol Last Admin: 06/26/22 17:06 Dose: 125 mg Past medical history to include: Atrial fibrillation, diabetes, GERD, hypertension, hypothyroid, ovarian cancer with chemo and radiation treatment. Depression. Stroke. Social history: Current the [facility]. Patient started smoking as a teenager and stopped in 1994. No alcohol. Family history: Father of lung cancer Physical examination: VITAL SIGNS: 97.6, 84, 18, 147/84, 96% room air GENERAL: Laying in bed, awake, tired EYES: Pupils equal. Conjunctiva normal. HEENT: External appearance of nose and ears normal, oral cavity dry mucous membranes NECK: JVD unable to assess; masses not palpable. HEART: Heart sounds irregular; slight edema. LUNGS: Respiratory rate normal; distant breath sound. ABDOMEN: Soft, nontender, liver spleen not palpable, no masses palpable. Perianal wounds C wound care notes. PSYCH: Answering questions appropriately MUSCULOSKELETAL:No Clubbing/cyanosis;muscles-grossly intact, evidence of OA DERMATOLOGICAL: Deep wound in the abdominal pannus and in the right groin. See nursing notes for pictures INVESTIGATIONS, reviewed in the clinical context: June 25: Potassium 4.2 BUN 27 creatinine 1.16 June 24: White count 7.9 hemoglobin 7.6 platelets 346 potassium 4.2 BUN 37 creatinine 1.55 June 23: White count 7.9 hemoglobin 7.2 platelets 311 potassium 4.9 creatinine 2.4 CRP 0.77 White count 7.7 hemoglobin 8 platelets 348 sodium 1:30 potassium 4.7 BUN 37 creatinine 1.9 to AST 145 ALT 42 albumin 2.1 EKG tracing personally reviewed by me-personally reviewed by me: Atrial fibrillation. Rate 60 Chest x-ray film personally reviewed by me-portable. Underpenetrated. Borderline cardiomegaly From recent admission: 06/01/2022: BUN 19 creatinine 0.93 MRI brain without contrast: Acute/subacute CVA of the left coronary radiata on the posterior aspect of the left frontal lobe. Nonspecific white matter changes. CT brain: Mild atrophic CT angiography of the brain: Nonspecific 2-D echocardiogram: EF 55-60%, severe LVH Assessment and plan: -Acute metabolic encephalopathy from acute kidney injury: Better -Acute kidney injury combination of prerenal and ATN.: Improving Stop metformin. IV fluids -Acute C. diff colitis from recent antibiotics: Better Oral vancomycin started 125 mg by mouth 4 times a day. -Chronic Large wound on the abdominal pannus and right groin: Worsening Plan from wound VAC on the right groin wound. Possible debridement of the pannus wound. -Acute stroke in the left [place] radiata on the posterior aspect of the left frontal lobe. suspected to be embolic from underlying paroxysmal atrial fibrillation, on 05/18/2022 Eliquis held for debridement. No aspirin. -Persistent atrial fibrillation: Rate controlled eliquis. Coreg 6.25 mg twice a day.. [Cardizem CD 180 mg a day. And digitoxin to be held] -Chronic dysphagia from underlying stroke : Chopped diet -Diabetes mellitus type 2 on oral hypoglycemic Hold metformin. Follow Accu-Cheks -Morbid obesity BMI 51.6 Weight loss measures -GERD Prilosec 20 mg -Essential hypertension, currently blood pressure running low Coreg 6.25 mg twice a day, hold Cardizem -Chronic urinary stress incontinence Ditropan XL 10 mg a day -Hypothyroid Synthroid 200 g a day -Acute on chronic medical debility multifactorial Eliquis being held for deep). Start Lovenox 120 every 12 for bridging purposes. Hold Lovenox in the morning of procedure. Other medications to continue. Discussed with Tatyana SULLIVAN for surgery. The nurse. And the patient.
[2022-06-26 19:06] LABS: Glucose,Whole Blood 121 mg/dL (70-110)
[2022-06-26] MEDS: PANTOPRAZOLE 40 MG TABLET PO SCH (21:40)
[2022-06-26] MEDS: ATORVASTATIN 40 MG TAB PO SCH (21:40)
[2022-06-27] MEDS: SODIUM CHLORIDE 0.9% 1,000 ML IV SCH ×3 (00:19→12:04)
[2022-06-27 07:16] LABS: Glucose,Whole Blood 103 mg/dL (70-110)
[2022-06-27] MEDS: INSULIN ASPART (NovoLOG) 100 UNIT/ML VIAL SQ SCH ×3 (07:34→17:37)
[2022-06-27] MEDS: carvediloL 6.25 MG TAB PO SCH ×2 (07:52→15:06)
[2022-06-27] MEDS: VANCOMYCIN 125 MG CAPSULE PO SCH ×4 (07:52→23:41)
[2022-06-27] MEDS: OXYBUTYNIN 10 MG TAB.ER.24 PO SCH (07:52)
[2022-06-27] MEDS: LEVOTHYROXINE 100 MCG TAB PO SCH (07:52)
[2022-06-27] MEDS: NYSTATIN 100,000 UNIT/GM POWD 15 GM TOPICAL SCH ×2 (07:53→15:06)
[2022-06-27] MEDS: ENOXAPARIN 120 MG/0.8 ML SYRINGE SQ SCH (07:53)
[2022-06-27] MEDS: polyethylene glycoL 3350 17 GM POWD.PACK PO SCH (07:54)
[2022-06-27 09:22] LABS: Basophils # (A) 0.03 X 10*3/uL (0.00-0.10); Basophils % (A) 0.4 %; Eosinophils # (A) 0.24 X 10*3/uL (0.04-0.35); Eosinophils % (A) 3.1 %; HCT 25.1 % (37.2-46.3); HGB 7.5 g/dL (12.0-15.0); Immature Grans, Automated 1.9 %; Lymphocytes # (A) 0.39 X 10*3/uL (0.90-5.00); MCH 28.1 pg (27.0-32.0); MCHC 29.9 g/dL (32.0-37.0); Mean Platelet Volume 9.5 fL (9.5-12.2); Monocytes # (A) 0.67 X 10*3/uL (0.20-1.00); Monocytes % (A) 8.6 %; NRBC Per 100 WBC 0 /100 WBCS (0.0-0.0); Neutrophils # (A) 6.31 X 10*3/uL (1.80-7.70); Platelet Count 315 X 10*3/uL (140-440); RBC 2.67 X 10*6/uL (4.10-5.20); RDW 18.6 % (11.5-14.5); WBC 7.79 X 10*3/uL (4.50-10.00)
[2022-06-27] MEDS: HYDROcodone/APAP 10-325MG 1 EACH TAB PO PRN ×2 (09:34→22:14)
[2022-06-27] MEDS: HYDROPHILIC CREAM 180 GM TUBE TOPICAL SCH (09:35)
[2022-06-27 09:38] LABS: African American GFR (CKD) 78.9 (60.0-200.0); Anion Gap 7.9 mmol/L (10.00-18.00); BUN/Creat Ratio 14.11 Ratio (12.00-20.00); Blood Urea Nitrogen 12.7 mg/dL (9.0-27.0); Calcium 7.6 mg/dL (8.7-10.3); Carbon Dioxide 22.1 mmol/L (20.0-27.5)
[2022-06-27 12:01] LABS: Glucose,Whole Blood 127 mg/dL (70-110)
--- NOTE | 2022-06-27 15:36 | P.PN ---
Subjective Progress Note Date: 06/27/22 CHIEF COMPLAINT: Right groin HISTORY OF PRESENT ILLNESS: The patient is a 62 year old female with super m orbid obesity presents with radionecrosis of the right groin and complex right groin wound. The patient has a new necrotic area on the left side of the abdomen underneath the pannus. She is now diagnosed with C. diff colitis. Patient was seen by wound care service and ID service. Afebrile. WBC 7.79 HgB7.5 plt 315 sodium 137 potassium is 4.0 creatinine 0.9. Medicine service has added Lovenox for DVT prophylaxis due to patient's history of stroke and underlying A. fib. PHYSICAL EXAM: VITAL SIGNS: Reviewed GENERAL: Well-developed in no acute distress. HEENT: No sclera icterus. Extraocular movements grossly intact. Moist buccal mucosa. Head is atraumatic, normocephalic. Hears conversational speech. No nasal drainage. NECK: Supple without lymphadenopathy. CHEST: Non-labored respirations and equal bilateral excursions. CARDIOVASCULAR: Palpable 2+ radial pulses. ABDOMEN: Large pannus. right groin wound. Necrotic tissue noted under the left side of the pannus MUSCULOSKELETAL: No clubbing or cyanosis. NEUROLOGIC: No focal or lateralizing signs. Cranial nerves II through XII grossly intact. PSYCH: Appropriate affect. Alert and oriented to person, place and time. SKIN: Well perfused. Good skin turgor. ASSESSMENT: 1. Right groin complex wound 2. Panniculitis 3. Morbid obesity due to excess calories, BMI 51.6 4. Uterine cancer status post chemoradiation 5. Diabetes type 2, insulin-dependent 6. Chronic history atrial fibrillation 7. Anemia 8. C. diff colitis 9. Left necrotic tissue under the pannus PLAN: -Patient scheduled for debridement of the abdominal pannus and right groin on 06/28/[address] Nolasco. Patient will have wound VAC placed in the OR. -Nothing by mouth after midnight -Add Renny protein supplement -Continue local wound care -Continue treatment for C. diff colitis -Hold Lovenox starting with tonight's evening dose for surgery Physician Adoption Social Worker note has been reviewed by physician. Signing provider agrees with the documented findings, assessment, and plan of care. Objective - Vital Signs Vital signs: Vital Signs Temp 97.5 F L 06/27/22 14:00 Pulse 77 08/17/22 14:00 Resp 18 06/27/22 14:00 BP 132/80 06/27/22 14:00 Pulse Ox 98 06/27/22 14:00 FiO2 Intake & Output 06/26/22 06/27/22 06/27/22 18:59 06:59 18:59 Intake Total 120 1250 118 Output Total 680 850 Balance -560 1250 -732 Intake: Intake, IV Titration 1000 Amount Sodium Chloride 0.9% 1, 1000 000 ml @ 130 mls/hr IV . Q7H42M [facility] Rx#:[id number] Oral 120 250 118 Output: Urine 680 850 Other: Voiding Method Indwelling Catheter Indwelling Catheter Indwelling Catheter # Voids 1 # Bowel Movements 0 - Labs CBC & Chem 7: 06/27/22 04:31 06/27/22 04:31 Labs: Abnormal Lab Results - Last 24 Hours (Table) 06/26/22 06/26/22 06/27/22 Range/Units 17:10 19:05 04:31 RBC 2.67 L (4.10-5.20) X 10*6/uL Hgb 7.5 L (12.0-15.0) g/dL Hct 25.1 L (37.2-46.3) % MCHC 29.9 L (32.0-37.0) g/dL RDW 18.6 H (11.5-14.5) % Immature Gran # 0.15 H (0.00-0.04) X 10*3/uL Lymphocytes # 0.39 L (0.90-5.00) X 10*3/uL Anion Gap (10.00-18.00) mmol/L POC Glucose (mg/dL) 131 H 121 H (70-110) mg/dL Calcium (8.7-10.3) mg/dL 06/27/22 06/27/22 Range/Units 04:31 11:56 RBC (4.10-5.20) X 10*6/uL Hgb (12.0-15.0) g/dL Hct (37.2-46.3) % MCHC (32.0-37.0) g/dL RDW (11.5-14.5) % Immature Gran # (0.00-0.04) X 10*3/uL Lymphocytes # (0.90-5.00) X 10*3/uL Anion Gap 7.90 L (10.00-18.00) mmol/L POC Glucose (mg/dL) 127 H (70-110) mg/dL Calcium 7.6 L (8.7-10.3) mg/dL Microbiology - Last 24 Hours (Table) 06/22/22 22:46 Blood Culture - Preliminary Blood No Growth after 96 hours
--- NOTE | 2022-06-27 16:16 | P.PN ---
Subjective Progress Note Date: 06/26/22 Principal diagnosis: R groin wound and diarrhea Patient is a 62-year-old female with a past medical history significant for uterine cancer status post chemoradiation with significant skin necrosis to the right groin area status post extensive surgery department culture with ESBL E. coli for the patient apparently has come having right therapy subsequently presenting back to the hospital for weakness mental status change and dehydration and apparently the patient also have a diarrhea and stool for significantly positive. On today's evaluation that is 06/26/2022, patient remains to be afebrile, the patient is breathing comfortably on nasal cannula oxygen, the patient denies chest pain or shortness of the cough, the patient pain to the right groin wound area is currently controlled and diarrhea has slowed down to the nursing staff Objective - Vital Signs Vital signs: Vital Signs Temp 97.6 F 06/26/22 06:45 Pulse 87 06/26/22 06:45 Resp 18 06/26/22 06:45 BP 122/80 06/26/22 06:45 Pulse Ox 95 06/26/22 06:45 FiO2 Intake & Output 06/25/22 06/26/22 06/26/22 18:59 06:59 18:59 Intake Total 1394 Output Total 710 600 Balance 684 -600 Weight 145.15 kg Intake: Intake, IV Titration 1040 Amount Sodium Chloride 0.9% 1, 1040 000 ml @ 130 mls/hr IV . Q7H42M [facility] Rx#:[id number] Oral 354 Output: Urine 710 600 Other: Voiding Method Indwelling Catheter Indwelling Catheter # Bowel Movements 0 - Exam GENERAL DESCRIPTION: Middle-aged female lying in bed, no distress. No tachypnea or accessory muscle of respiration use. LUNGS: Unlabored breathing. Clear to auscultation anteriorly. No wheeze or crackle. HEART: S1, S2, regular rate and rhythm. No loud murmur ABDOMEN: Soft, no tenderness , did have extensive wound to the right groin covered with the dressing no drainage of the dressing EXTREMITIES: Diffuse swelling bilateral lower extremity. - Labs CBC & Chem 7: 06/27/22 04:31 06/27/22 04:31 Labs: Abnormal Lab Results - Last 24 Hours (Table) 06/25/22 06/25/22 06/25/22 Range/Units 12:44 17:22 19:51 POC Glucose (mg/dL) 149 H 150 H 152 H (70-110) mg/dL 06/26/22 Range/Units 07:21 POC Glucose (mg/dL) 117 H (70-110) mg/dL Microbiology - Last 24 Hours (Table) 06/22/22 22:46 Blood Culture - Preliminary Blood No Growth after 72 hours Assessment and Plan (1) C. difficile colitis Current Visit: Yes Status: Acute Code(s): A04.72 - ENTEROCOLITIS D/T CLOSTRIDIUM DIFFICILE, NOT SPCF RECUR SNOMED Code(s): 314444873 (2) Right groin wound Current Visit: No Status: Acute Code(s): S31.109A - UNSP OPN WND ABD WALL, UNSP Q W/O PENET PERIT CAV, INIT SNOMED Code(s): 156101165 Plan: 1patient presented to hospital with weakness lethargy which is likely multifactorial possible dehydration as the patient not been eating and drinking he did have elevated BUN and fattening patient also have a positive UA and possible urinary tract infection vs asymptomatic bacteruria as pt has no significant urinary symptoms, urine has been finalized with Pseudomonas keeping in mind active C. diff and the clinical suspicion is low for symptomatic UTI we will hold on any antibiotic therapy for the positive urine culture 2 Patient with a large wound to the right groin area after extensive surgical debridement for radionecrosis with a culture at that time was positive for ESBL and Jacki for the patient has completed her antibiotic therapy 3patient did have an area of necrosis on the left lower abdominal wall for possible surgical debridement 4patient with C. diff colitis, which has shown clinical improvement patient will continue with vanco 125mg po q6hr Time with Patient: Less than 30
--- NOTE | 2022-06-27 16:17 | P.PN ---
Subjective Progress Note Date: 06/27/22 Principal diagnosis: R groin wound and diarrhea Patient is a 62-year-old female with a past medical history significant for uterine cancer status post chemoradiation with significant skin necrosis to the right groin area status post extensive surgery department culture with ESBL E. coli for the patient apparently has come having right therapy subsequently presenting back to the hospital for weakness mental status change and dehydration and apparently the patient also have a diarrhea and stool for significantly positive. On today's evaluation that is 06/27/2022, patient denies any fever or any chills, the patient is breathing comfortably on nasal cannula oxygen, the patient denies chest pain or shortness of the cough, the patient denies any worsening pain to the right groin wound area, no abdominal pain and no diarrhea reported today by the nursing staff Objective - Vital Signs Vital signs: Vital Signs Temp 97.5 F L 06/27/22 07:57 Pulse 84 06/27/22 07:57 Resp 18 06/27/22 07:57 BP 147/73 06/27/22 07:57 Pulse Ox 97 06/27/22 07:57 FiO2 Intake & Output 06/26/22 06/27/22 06/27/22 18:59 06:59 18:59 Intake Total 120 1250 Output Total 680 850 Balance -560 1250 -850 Intake: Intake, IV Titration 1000 Amount Sodium Chloride 0.9% 1, 1000 000 ml @ 130 mls/hr IV . Q7H42M [facility] Rx#:[id number] Oral 120 250 Output: Urine 680 850 Other: Voiding Method Indwelling Catheter Indwelling Catheter Indwelling Catheter # Voids 1 # Bowel Movements 0 - Exam GENERAL DESCRIPTION: Middle-aged female lying in bed, no distress. No tachypnea or accessory muscle of respiration use. LUNGS: Unlabored breathing. Clear to auscultation anteriorly. No wheeze or cr ackle. HEART: S1, S2, regular rate and rhythm. No loud murmur ABDOMEN: Soft, no tenderness , did have extensive wound to the right groin covered with the dressing no drainage of the dressing EXTREMITIES: Diffuse swelling bilateral lower extremity. - Labs CBC & Chem 7: 06/27/22 04:31 06/27/22 04:31 Labs: Abnormal Lab Results - Last 24 Hours (Table) 06/26/22 06/26/22 06/26/22 Range/Units 11:59 17:10 19:05 RBC (4.10-5.20) X 10*6/uL Hgb (12.0-15.0) g/dL Hct (37.2-46.3) % MCHC (32.0-37.0) g/dL RDW (11.5-14.5) % Immature Gran # (0.00-0.04) X 10*3/uL Lymphocytes # (0.90-5.00) X 10*3/uL Anion Gap (10.00-18.00) mmol/L POC Glucose (mg/dL) 136 H 131 H 121 H (70-110) mg/dL Calcium (8.7-10.3) mg/dL 06/27/22 06/27/22 Range/Units 04:31 04:31 RBC 2.67 L (4.10-5.20) X 10*6/uL Hgb 7.5 L (12.0-15.0) g/dL Hct 25.1 L (37.2-46.3) % MCHC 29.9 L (32.0-37.0) g/dL RDW 18.6 H (11.5-14.5) % Immature Gran # 0.15 H (0.00-0.04) X 10*3/uL Lymphocytes # 0.39 L (0.90-5.00) X 10*3/uL Anion Gap 7.90 L (10.00-18.00) mmol/L POC Glucose (mg/dL) (70-110) mg/dL Calcium 7.6 L (8.7-10.3) mg/dL Microbiology - Last 24 Hours (Table) 06/22/22 22:46 Blood Culture - Preliminary Blood No Growth after 96 hours Assessment and Plan (1) C. difficile colitis Current Visit: Yes Status: Acute Code(s): A04.72 - ENTEROCOLITIS D/T CLOSTRIDIUM DIFFICILE, NOT SPCF RECUR SNOMED Code(s): 955646930 (2) Right groin wound Current Visit: No Status: Acute Code(s): S31.109A - UNSP OPN WND ABD WALL, UNSP Q W/O PENET PERIT CAV, INIT SNOMED Code(s): 452160050 Plan: 1patient presented to hospital with weakness lethargy which is likely multifactorial possible dehydration as the patient not been eating and drinking he did have elevated BUN and fattening patient also have a positive UA and p ossible urinary tract infection vs asymptomatic bacteruria as pt has no significant urinary symptoms, urine has been finalized with Pseudomonas keeping in mind active C. diff and the clinical suspicion is low for symptomatic UTI we will hold on any antibiotic therapy for the positive urine culture 2 Patient with a large wound to the right groin area after extensive surgical debridement for radionecrosis with a culture at that time was positive for ESBL and Jacki for the patient has completed her antibiotic therapy, her local wound care to continue per the wound care team 3patient did have an area of necrosis on the left lower abdominal wall for possible surgical debridement for which surgical team is following the patient 4patient did have clinical improvement as for his C. diff colitis and will continue with vanco 125mg po q6hr Time with Patient: Less than 30
[2022-06-27 17:35] LABS: Glucose,Whole Blood 109 mg/dL (70-110)
[2022-06-27] MEDS: PANTOPRAZOLE 40 MG TABLET PO SCH (19:33)
[2022-06-27] MEDS: ATORVASTATIN 40 MG TAB PO SCH (19:33)
[2022-06-27] MEDS: LACTATED RINGERS 1,000 ML IV SCH (19:33)
--- NOTE | 2022-06-27 19:37 | P.PN ---
Progress Note - Text Progress Note Date: 06/27/22 Chief Complaint: Anemia This is a pleasant 62-year-old patient, follows with Dr. Smooth Bob. Chronic stable medical conditions include diabetes, GERD, essential hypertension, hypothyroid. Chronic low back pain. Ovarian cancer treatment for chemo and radiation treatment. September 2021 was having significant vaginal bleeding. 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 No metastatic disease. She was not felt to be surgical candidate and was to receive 3 cycles of carboplatin/Taxol followed by radiation and 3 additional cycles of the above. She completed radi ation on 03/14/2022. Started back on the carbotaxol April 03 and was status post cycle 6 day 1 on May 16. May 2022: Stroke found in the left coronary radiata on the posterior aspect of left frontal lobe. Was placed on eliquis for atrial fibrillation. On recent admission patient to have a significant wound on the right groin and abdominal pannus. Was seen by Dr. [email or web address] from [place] and Dr. Kasper from general surgery. May 31 underwent wound debridement by Dr. Kasper. Cultures were positive for ESBL klebsiella. Covered with vancomycin and meropenem. June 01 patient was transferred to [facility] for further management of deep wounds. Patient now presents here from [facility]. Patient become more lethargic. Difficult to arouse. Hypoxic on room air 82%. Placed on 5 L of oxygen. Patient was vomiting up on arrival of the EMS. Patient states that she is not been eating much. Kidney function is much worse since he has recently. Not eating drinking enough. Wounds are present. Patient rather lethargic during history taking. Tired easily. Patient has been nonambulatory since discharge June 23: Tired. Barely eating. Kidney function is worse. Changed to pured diet. IV fluids to continue. Wound care per surgery and ID. Foul-smelling diarrhea. Positive for C. diff. June 24: Decreased oral intake. Encouraged. On by mouth vancomycin. Some improvement in kidney function. Getting IV fluids. More awake today. June 25: For more awake. Does not like hospital food. Patient seen by the wound care team in general surgery. General surgery is pending for debridement below the pannus. Eliquis held. Also plan is to try a wound VAC. Patient encouraged to eat. Diarrhea. C. diff better. Only 2 bowel movements since yesterday evening. Kidney function improving. IV fluids cutback. June 26: Patient be placed on Lovenox subcu every 12 to bridge until the evening before the procedure that is on . Discussed with the patient and nurse. Oral intake fair. Wound care per surgery and wound care team. Diarrhea is better. June 27: Patient to hold Lovenox dose after tonight. For debridement of the left pannus wound and right groin wound tomorrow by Dr. Kasper and placement of wound VAC in the OR. Otherwise patient tolerating a diet. Active Medications Acetaminophen (Acetaminophen Tab 325 Mg Tab) 650 mg PO Q4H PRN PRN Reason: Fever Last Admin: 06/22/22 20:45 Dose: 650 mg Hydrocodone Bitart/Acetaminophen (Hydrocodone/Apap 10-325mg 1 Each Tab) 1 each PO Q4HR PRN PRN Reason: Pain Last Admin: 06/27/22 09:34 Dose: 1 each Atorvastatin Calcium (Atorvastatin 40 Mg Tab) 40 mg PO HS@2000 [facility] Last Admin: 06/27/22 19:33 Dose: 40 mg Carvedilol (Carvedilol 6.25 Mg Tab) 6.25 mg PO BID@0800,1600 [facility] Last Admin: 06/27/22 15:06 Dose: 6.25 mg Dextrose/Water (Dextrose 50% Syringe 50 Ml) 25 ml IVP PER PROTOCOL PRN; Protocol PRN Reason: Hypoglycemia Dextrose/Water (Dextrose 50% Syringe 50 Ml) 50 ml IVP PER PROTOCOL PRN; Protocol PRN Reason: Hypoglycemia Lactated Ringer's (Lactated Ringers) 1,000 mls @ 20 mls/hr IV .Q24H [facility] Last Admin: 06/27/22 19:33 Dose: 20 mls/hr Insulin Aspart (Insulin Aspart (Novolog) 100 Unit/Ml Vial) 0 unit SQ AC-TID [facility]; Protocol Last Admin: 06/27/22 17:37 Dose: Not Given Levothyroxine Sodium (Levothyroxine 100 Mcg Tab) 200 mcg PO DAILY@0800 [facility] Last Admin: 06/27/22 07:52 Dose: 200 mcg Multi-Ingred Cream/Lotion/Oil/Oint (Hydrophilic Cream 180 Gm Tube) 1 applic TOPICAL DAILY [facility]; Protocol Last Admin: 06/27/22 09:35 Dose: 1 applic Naloxone HCl (Naloxone 0.4 Mg/Ml 1 Ml Vial) 0.2 mg IV Q2M PRN PRN Reason: Opioid Reversal Nitroglycerin (Nitroglycerin Sl Tabs 0.4 Mg Tab) 0.4 mg SUBLINGUAL Q5M PRN PRN Reason: Chest Pain Nystatin (Nystatin 100,000 Unit/Gm Powd 15 Gm) 1 applic TOPICAL BID@0800,1600 [facility]; Protocol Last Admin: 06/27/22 15:06 Dose: 1 applic Ondansetron HCl (Ondansetron 4 Mg/2 Ml Vial) 4 mg IVP Q8HR PRN PRN Reason: Nausea And Vomiting Oxybutynin Chloride (Oxybutynin 10 Mg Tab.Er.24) 10 mg PO DAILY@0800 [facility] Last Admin: 06/27/22 07:52 Dose: 10 mg Pantoprazole Sodium (Pantoprazole 40 Mg Tablet) 40 mg PO HS@2000 [facility] Last Admin: 06/27/22 19:33 Dose: 40 mg Polyethylene Glycol (Polyethylene Glycol 3350 17 Gm Powd.Pack) 17 gm PO DAILY@0800 [facility] Last Admin: 06/27/22 07:54 Dose: Not Given Vancomycin HCl (Vancomycin 125 Mg Capsule) 125 mg PO QID [facility]; Protocol Last Admin: 06/27/22 19:33 Dose: 125 mg Past medical history to include: Atrial fibrillation, diabetes, GERD, hypertension, hypothyroid, ovarian cancer with chemo and radiation treatment. Depression. Stroke. Social history: Current the [facility]. Patient started smoking as a teenager and stopped in 1994. No alcohol. Family history: Father of lung cancer Physical examination: VITAL SIGNS: 97.5, 77, 18, 132/80, 98% room air GENERAL: Laying in bed, awake, tired EYES: Pupils equal. Conjunctiva normal. HEENT: External appearance of nose and ears normal, oral cavity dry mucous membranes NECK: JVD unable to assess; masses not palpable. HEART: Heart sounds irregular; slight edema. LUNGS: Respiratory rate normal; distant breath sound. ABDOMEN: Soft, nontender, liver spleen not palpable, no masses palpable. Perianal wounds C wound care notes. PSYCH: Answering questions appropriately MUSCULOSKELETAL:No Clubbing/cyanosis;muscles-grossly intact, evidence of OA DERMATOLOGICAL: Deep wound in the abdominal pannus and in the right groin. See nursing notes for pictures INVESTIGATIONS, reviewed in the clinical context: June 27: WBC 7.7 hemoglobin 7.5 potassium 4 creatinine 0.9 June 25: Potassium 4.2 BUN 27 creatinine 1.16 June 24: White count 7.9 hemoglobin 7.6 platelets 346 potassium 4.2 BUN 37 creatinine 1.55 June 23: White count 7.9 hemoglobin 7.2 platelets 311 potassium 4.9 creatinine 2.4 CRP 0.77 White count 7.7 hemoglobin 8 platelets 348 sodium 1:30 potassium 4.7 BUN 37 creatinine 1.9 to AST 145 ALT 42 albumin 2.1 EKG tracing personally reviewed by me-personally reviewed by me: Atrial fibrillation. Rate 60 Chest x-ray film personally reviewed by me-portable. Underpenetrated. Borderline cardiomegaly From recent admission: 06/01/2022: BUN 19 creatinine 0.93 MRI brain without contrast: Acute/subacute CVA of the left coronary radiata on the posterior aspect of the left frontal lobe. Nonspecific white matter changes. CT brain: Mild atrophic CT angiography of the brain: Nonspecific 2-D echocardiogram: EF 55-60%, severe LVH Assessment and plan: -Acute metabolic encephalopathy from acute kidney injury: Improved -Acute kidney injury combination of prerenal and ATN.: Improved Stop metformin. IV fluids -Acute C. diff colitis from recent antibiotics: Better Oral vancomycin started 125 mg by mouth 4 times a day. -Chronic Large wound on the abdominal pannus and right groin: Not improving Plan from wound VAC on the right groin wound. Debridement of both the wounds tomorrow per Dr. Kasper -Acute stroke in the left [place] radiata on the posterior aspect of the left frontal lobe. suspected to be embolic from underlying paroxysmal atrial fibrillation, on 05/18/2022 Eliquis held for debridement. No aspirin. -Persistent atrial fibrillation: Rate controlled eliquis. Coreg 6.25 mg twice a day.. [Cardizem CD 180 mg a day. And d igitoxin to be held] -Chronic dysphagia from underlying stroke : Chopped diet -Diabetes mellitus type 2 on oral hypoglycemic Hold metformin. Follow Accu-Cheks -Morbid obesity BMI 51.6 Weight loss measures -GERD Prilosec 20 mg -Essential hypertension, currently blood pressure running low Coreg 6.25 mg twice a day, hold Cardizem -Chronic urinary stress incontinence Ditropan XL 10 mg a day -Hypothyroid Synthroid 200 g a day -Acute on chronic medical debility multifactorial Eliquis being held for deep). On Lovenox for bridging until tonight. Discussed with patient. Other medications to continue. Wound VAC is to be placed in the OR. Tomorrow
[2022-06-27] MEDS: ACETAMINOPHEN TAB 325 MG TAB PO PRN (20:25)
[2022-06-27] MEDS ORDERED: ACETAMINOPHEN IV (For NPO) 1,000 MG in EMPTY BAG 1 BAG IVPB ONE (21:00)
[2022-06-27 21:10] LABS: Glucose,Whole Blood 132 mg/dL (70-110)
[2022-06-27 21:11] LABS: ABG Base Excess -0.3 mmol/L; ABG HCO3 23 mmol/L (21-25); ABG Oxygen Saturation 98.4 % (94-97); ABG PCO2 31 mmHg (35-45); ABG PH 7.49 (7.35-7.45); ABG PO2 94 mmHg (83-108); ABG TCO2 24 mmol/L (19-24); Allen Test Performed? Yes
[2022-06-27 21:26] LABS: Anisocytosis Slight; Basophils % (A) 0 %; Eosinophils # (A) 0.1 k/uL (0-0.7); Eosinophils % (A) 1 %; HGB 8.8 gm/dL (11.4-16.0); Hypochromasia Marked; Lymphocytes # (A) 0.2 k/uL (1.0-4.8); Lymphocytes % (A) 1 %; MCH 28.3 pg (25.0-35.0); MCHC 30.3 g/dL (31.0-37.0); MCV 93.1 fL (80.0-100.0); Mean Platelet Volume 7.5; Monocytes # (A) 0.5 k/uL (0-1.0); Monocytes % (A) 3 %; Neutrophils % (A) 95 %; Platelet Count 385 k/uL (150-450); Poikilocytosis Slight; RBC 3.12 m/uL (3.80-5.40); RDW 17.9 % (11.5-15.5); WBC 14.8 k/uL (3.8-10.6)
--- NOTE | 2022-06-27 21:31 | XR ---
EXAMINATION TYPE: XR chest 1V portable DATE OF EXAM: 06/27/2022 COMPARISON: 06/22/2022 HISTORY: Respiratory distress TECHNIQUE: FINDINGS: Heart size is fairly normal. There is some coarsening of the lung markings. No obvious hear t failure. No pleural effusion. IMPRESSION: Coarse lung markings. There is significant thickened clearing of the infiltrates in the l eft lung compared to old exam. No obvious heart failure.
[2022-06-27 21:35] LABS: African American GFR (CKD) 80 (>60 ml/min/1.73 sqM); Anion Gap 11 mmol/L; Blood Urea Nitrogen 11 mg/dL (7-17); Calcium 7.7 mg/dL (8.4-10.2); Carbon Dioxide 21 mmol/L (22-30); Chloride 106 mmol/L (98-107); Glucose 121 mg/dL (74-99); Magnesium 1.1 mg/dL (1.6-2.3); Non-African American GFR(CKD) 69 (>60 ml/min/1.73 sqM); Sodium 138 mmol/L (137-145)
[2022-06-27 22:21] LABS: INR 1.7 (<1.2)
[2022-06-27] MEDS ORDERED: Magnesium Replacement Protocol 1 EACH MISC MISCELLANE PRN (22:52)
[2022-06-27] MEDS: MAGNESIUM SULFATE-D5W PMX 1 GM in DEXTROSE/WATER 1 100ML.BAG IVPB SCH (23:40)
[2022-06-27] MEDS: CEFEPIME 2 GM in SODIUM CHLORIDE 0.9% 100 ML IVPB SCH (23:40)
[2022-06-28 00:33] LABS: Appearance,Urine Cloudy (Clear); Bacteria,Urine Occasional /hpf; Bilirubin,Urine Negative (Negative); Blood,Urine Large (Negative); Cellular Casts,Urine 2 /lpf (0); Color,Urine Yellow; Glucose,Urine (UA) Trace (Negative); Granular Casts,Urine 2 /lpf (0); Hyaline Casts,Urine 8 /lpf (0-2); Ketones,Urine 1+ (Negative); Leukocyte Esterase,Urine Small (Negative); Mucus,Urine Few /hpf; Nitrite,Urine Negative (Negative); Protein,Urine 3+ (Negative); RBC,Urine 49 /hpf (0-5); Specific Gravity,Urine 1.024 (1.001-1.035); Squamous Epithelial Cell,Urine 2 /hpf (0-4); WBC,Urine 49 /hpf (0-5)
[2022-06-28] MEDS: MAGNESIUM SULFATE-D5W PMX 1 GM in DEXTROSE/WATER 1 100ML.BAG IVPB SCH ×2 (03:19→04:27)
[2022-06-28 06:42] LABS: Glucose,Whole Blood 153 mg/dL (70-110)
[2022-06-28] MEDS: INSULIN ASPART (NovoLOG) 100 UNIT/ML VIAL SQ SCH ×3 (06:44→17:07)
[2022-06-28 07:09] LABS: Anisocytosis Slight; Basophils % (A) 0 %; Eosinophils # (A) 0.1 k/uL (0-0.7); Eosinophils % (A) 0 %; HCT 27.3 % (34.0-46.0); HGB 8.3 gm/dL (11.4-16.0); Hypochromasia Marked; Lymphocytes # (A) 0.1 k/uL (1.0-4.8); Lymphocytes % (A) 1 %; MCH 28.8 pg (25.0-35.0); MCHC 30.3 g/dL (31.0-37.0); Macrocytosis Slight; Mean Platelet Volume 7.4; Monocytes # (A) 0.6 k/uL (0-1.0); Monocytes % (A) 5 %; Neutrophils # (A) 11.9 k/uL (1.3-7.7); Neutrophils % (A) 93 %; Platelet Count 342 k/uL (150-450); Poikilocytosis Slight; RBC 2.87 m/uL (3.80-5.40); RDW 17.8 % (11.5-15.5); WBC 12.8 k/uL (3.8-10.6)
[2022-06-28 07:39] LABS: Calcium 7.2 mg/dL (8.4-10.2); Magnesium 1.6 mg/dL (1.6-2.3); Potassium 4.1 mmol/L (3.5-5.1)
--- NOTE | 2022-06-28 08:08 | P.CRDCN ---
History of Present Illness History of present illness: HISTORY OF PRESENTING ILLNESS Patient is a pleasant 62-year-old female with history of Recent CVA on 05/19/2022, paroxysmal atrial fibrillation, uterine cancer undergoing chemotherapy, apparent CAD with prior "blockage with its own bypasses "likely consistent with [employer] from 2019, hypertension, hyperlipidemia, obesity, diabetes mellitus type 2. Patient unfortunately has been having issues with perineal wounds from prior radiation for cancer requiring debridement and infection and previously on antibiotics. She also has been having bleeding from the wounds. She had prior hospitalization approximate month ago. She was placed on antibiotics and unfortunately developed C. diff colitis. She has been on oral vancomycin. Cardiology was consulted secondary to patient having a loss of consciousness episode yesterday which occurred when she was being clean. Patient does not recall the entire event however per nursing apparently had been been washed and maneuvered and then had brief loss of consciousness reviewed with return a few minutes later, not requiring any CPR. Telemetry reveals atrophic fibrillation with controlled ventricular rates. She does admit to mild amount of chest discomfort. REVIEW OF SYSTEMS At the time of my exam: CONSTITUTIONAL: Denies fever or chills. CARDIOVASCULAR: +chest pain, no shortness of breath, orthopnea, PND or palpitations. RESPIRATORY: Denies cough. GASTROINTESTINAL: Denies abdominal pain, diarrhea, constipation, nausea or vomiting. MUSCULOSKELETAL: Denies myalgias. NEUROLOGIC: Denies any numbness, headaches, or weakness ENDOCRINE: Denies fatigue, weight change, polydipsia or polyurina. GENITOURINARY: Denies burning, hematuria or urgency with micturation. HEMATOLOGIC:+anemia +bleeding. PHYSICAL EXAMINATION Vital signs reviewed. CONSTITUTIONAL: No apparent distress, obese, ill appearing HEENT: Head is normocephalic. Pupils are equal, round. Sclerae anicteric. Mucous membranes of the mouth are moist. No JVD. CHEST EXAMINATION: Lungs are clear to auscultation. No chest wall tenderness is noted on palpation or with deep breathing. HEART EXAMINATION: Irregular, tachycardic rate and rhythm. S1, S2 heard. No murmurs, gallops or rub. ABDOMEN: Soft, nontender. Positive bowel sounds. EXTREMITIES: 2+ peripheral pulses, no lower extremity edema and no calf tenderness. SKIN: Right groin necrotic wound, multiple wounds in perineal area NEUROLOGIC EXAMINATION: Patient is awake, alert and oriented x3. ASSESSMENT Multiple wounds in groin and perineal area, with bleeding and requiring debridement Paroxysmal atrial fibrillation Mild chest discomfort Loss of consciousness, appears likely vasovagal related. No significant tachycardia or bradycardia arrhythmia on telemetry Recent Acute CVA in 05/19/2022 Reported history of CAD with likely [employer] Hypertension Diabetes mellitus type 2 Uterine cancer undergoing chemotherapy with prior significant vaginal bleeding Obesity PLAN Patient with loss of consciousness appears most likely vagal related without any significant tachycardia or bradycardia arrhythmia. Continue with current medical regimen. Continue supportive care. Continue Coreg. Monitor HR's. Anticoagulation on hold with anemia. Past Medical History Past Medical History: Atrial Fibrillation, Cancer, Diabetes Mellitus, GERD/Reflux, Hypertension, Thyroid Disorder Additional Past Medical History / Comment(s): Pt states she has had intermittent vaginal bleeding over past one year, NIDDM type II, UTIs, hypothyroid, chronic low back pain, occasional bilateral leg pain at night. Ovarian cancer with chemo and radiation. History of Any Multi-Drug Resistant Organisms: ESBL Date of last positivie culture/infection: 05/31/22 ESBL MDRO Source:: Groin Past Surgical History: Heart Catheterization, Tonsillectomy, Uterine Ablation Additional Past Surgical History / Comment(s): Nasal fracture with surgery, wisdom teeth extractions. Past Anesthesia/Blood Transfusion Reactions: Postoperative Nausea & Vomiting (PONV) Additional Past Anesthesia/Blood Transfusion Reaction / Comment(s): Pt received blood this hospitalization without reaction. Past Psychological History: Depression Additional Psychological History / Comment(s): Pt resides alone in an apartment. She uses a walker or cane. She drives. Smoking Status: Former smoker Past Alcohol Use History: None Reported Additional Past Alcohol Use History / Comment(s): PT started smoking as a teen and quit in 1994. Past Drug Use History: None Reported - Past Family History Father Family Medical History: Cancer Additional Family Medical History / Comment(s): Father of lung cancer. He was a smoker. Mother Family Medical History: Vascular Disorder Additional Family Medical History / Comment(s): Mother of a cerebral aneurysm at the age of 58 yrs. Medications and Allergies Home Medications Medication Instructions Recorded Confirmed Type Levothyroxine Sodium 200 mcg PO DAILY@0800 10/10/21 06/22/22 History Nitroglycerin Sl Tabs [Nitrostat] 0.4 mg SL Q5M PRN 10/10/21 06/22/22 History Omeprazole Magnesium [PriLOSEC OTC] 20 mg PO HS@199905/18/22 06/22/22 History Oxybutynin ER [Ditropan Xl] 10 mg PO DAILY@0800 05/18/22 06/22/22 History carvediloL [Coreg] 25 mg PO BID@0800,1600 05/18/22 06/22/22 History dilTIAZem HCL [Cardizem LA] 180 mg PO DAILY@0800 05/18/22 06/22/22 History metFORMIN HCL ER [Glucophage XR] 500 mg PO TID@0800,1200,1800 05/18/22 06/22/22 History Acetaminophen Tab [Tylenol] 650 mg PO Q4H PRN 06/22/22 06/22/22 History Acetaminophen/Diphenhydramine 2 tab PO HS PRN 06/22/22 06/22/22 History [Tylenol PM 500-25mg] Apixaban [Eliquis] 5 mg PO BID@0800,1600 06/22/22 06/22/22 History Atorvastatin [Lipitor] 40 mg PO HS@199906/22/22 06/22/22 History Digoxin [Lanoxin] 250 mcg PO DAILY@79906/22/22 06/22/22 History Docusate [Colace] 100 mg PO BID@0800,1600 06/22/22 06/22/22 History Ensure 1 can PO BID@0800,1600 06/22/22 06/22/22 History HYDROcodone/APAP 10-325MG [[place] 1 tab PO Q4HR PRN 06/22/22 06/22/22 History 10-325] Insulin Lispro [humaLOG Kwikpen] See Protocol SQ ACHS 06/22/22 06/22/22 History Nystatin 100,000 Unit/gm Powd 1 applic TOPICAL BID@0800,1600 06/22/22 06/22/22 History [Mycostatin Powder] Pro Stat 1 can PO BID@0800,1600 06/22/22 06/22/22 History oxyCODONE HCL 5 mg PO DAILY PRN 06/22/22 06/22/22 History polyethylene glycoL 3350 17 gm PO DAILY@0800 06/22/22 06/22/22 History [Polyethylene Glycol 3350] Allergies Allergy/AdvReac Type Severity Reaction Status Date / Time apixaban [From Eliquis] AdvReac Unsure, Verified 06/22/22 07:12 told by Coil Maker not to take Physical Exam Vitals: Vital Signs Temp Pulse Pulse Pulse Resp BP BP 06/28/22 07:00 80 12 148/75 06/28/22 06:30 82 10 L 153/72 06/28/22 06:00 73 14 150/78 06/28/22 05:30 75 14 148/76 06/28/22 05:00 76 14 142/82 06/28/22 04:30 79 15 142/84 06/28/22 04:00 97.8 F 79 82 13 126/84 06/28/22 03:30 101 H 13 154/89 06/28/22 03:00 80 17 139/71 06/28/22 02:30 92 24 118/66 06/28/22 02:00 98 21 119/62 06/28/22 01:30 89 18 111/66 06/28/22 01:00 103 H 13 128/75 06/28/22 00:30 101 H 77 H 119/70 06/28/22 00:00 98.2 F 97 75 H 103/83 06/27/22 23:30 117 H 95 H 100/62 06/27/22 23:15 122 H 20 06/27/22 23:00 98 H 135/91 06/27/22 22:30 121 H 77 H 115/87 06/27/22 22:00 114 H 21 111/78 06/27/22 21:45 123 H 16 06/27/22 20:57 102.9 F H 117 H 25 H 149/77 06/27/22 19:31 100.4 F H 114 H 20 168/67 06/27/22 14:00 97.5 F L 77 18 132/80 Pulse Ox 06/28/22 07:00 98 06/28/22 06:30 97 06/28/22 06:00 95 06/28/22 05:30 99 06/28/22 05:00 93 L 06/28/22 04:30 98 06/28/22 04:00 98 06/28/22 03:30 97 06/28/22 03:00 98 06/28/22 02:30 97 06/28/22 02:00 97 06/28/22 01:30 97 06/28/22 01:00 96 06/28/22 00:30 97 06/28/22 00:00 96 06/27/22 23:30 97 06/27/22 23:15 06/27/22 23:00 95 06/27/22 22:30 95 06/27/22 22:00 97 06/27/22 21:45 96 06/27/22 20:57 92 L 06/27/22 19:31 96 06/27/22 14:00 98 Intake and Output 06/27/22 06/28/22 06/28/22 22:59 06:59 14:59 Intake Total 440 20 Output Total 800 327 30 Balance -800 113 -10 Intake: IV 440 20 Lactated Ringers 1,000 ml 140 20 @ 20 mls/hr IV .Q24H [facility] Rx#:[id number] Magnesium Sulfate-D5w Pmx 300 1 gm In Dextrose/Water 1 100ml.bag @ 100 mls/hr IVPB Q1H [facility] Rx#: [id number] Output: Urine 800 327 30 Other: Voiding Method Indwelling Catheter Weight 145.15 kg 159.6 kg Results 06/28/22 06:23 06/28/22 06:23 Coagulation 06/27/22 Range/Units 20:00 PT 17.0 H (9.0-12.0) sec CBC 06/27/22 06/27/22 06/28/22 Range/Units 04:31 20:00 06:23 WBC 7.79 14.8 H 12.8 H (4.50-10.00) X 10*3/uL RBC 2.67 L 3.12 L 2.87 L (4.10-5.20) X 10*6/uL Hgb 7.5 L 8.8 L 8.3 L (12.0-15.0) g/dL Hct 25.1 L 29.0 L 27.3 L (37.2-46.3) % Plt Count 315 385 342 (140-440) X 10*3/uL Comprehensive Metabolic Panel 06/27/22 06/27/22 06/28/22 Range/Units 04:31 20:00 06:23 Sodium 137 138 138 (135-145) mmol/L Potassium 4.0 4.0 4.1 (3.5-5.5) mmol/L Chloride 107 106 107 (96-109) mmol/L Carbon Dioxide 22.1 21 L 23 (20.0-27.5) mmol/L BUN 12.7 11 13 (9.0-27.0) mg/dL Creatinine 0.9 0.89 0.99 (0.6-1.5) mg/dL Glucose 85 121 H 169 H (70-110) mg/dL Calcium 7.6 L 7.7 L 7.2 L (8.7-10.3) mg/dL Current Medications Generic Name Dose Route Start Last Admin Trade Name Freq PRN Reason Stop Dose Admin Acetaminophen 650 mg 06/22/22 09:24 06/27/22 20:25 Acetaminophen Tab 325 Mg Tab PO 650 mg Q4H PRN Administration Fever Hydrocodone Bitart/Acetaminophen 1 each 06/22/22 09:24 06/27/22 22:14 Hydrocodone/Apap 10-325mg 1 Each Tab PO 1 each Q4HR PRN Administration Pain Atorvastatin Calcium 40 mg 06/22/22 20:00 06/27/22 19:33 Atorvastatin 40 Mg Tab PO 40 mg HS@2000 [facility] Administration Carvedilol 6.25 mg 06/22/22 09:45 06/27/22 15:06 Carvedilol 6.25 Mg Tab PO 6.25 mg BID@0800,1600 [facility] Administration Dextrose/Water 25 ml 06/22/22 09:27 Dextrose 50% Syringe 50 Ml IVP PER PROTOCOL PRN Hypoglycemia Protocol Dextrose/Water 50 ml 06/22/22 09:27 Dextrose 50% Syringe 50 Ml IVP PER PROTOCOL PRN Hypoglycemia Protocol Lactated Ringer's 1,000 mls @ 20 mls/hr 06/27/22 16:08 06/27/22 19:33 Lactated Ringers IV 20 mls/hr .Q24H [facility] Administration Cefepime HCl 2 gm/ Sodium 100 mls @ 25 mls/hr 06/28/22 00:00 06/27/22 23:40 Chloride IVPB 25 mls/hr Q8HR [facility] Administration Protocol Insulin Aspart 0 unit 06/22/22 12:30 06/28/22 06:44 Insulin Aspart (Novolog) 100 Unit/Ml Vial SQ 2 unit AC-TID [facility] Administration Protocol Levothyroxine Sodium 200 mcg 06/22/22 08:00 06/27/22 07:52 Levothyroxine 100 Mcg Tab PO 200 mcg DAILY@0800 [facility] Administration Miscellaneous Information 1 each 06/27/22 22:52 Magnesium Replacement Protocol 1 Each Misc MISCELLANE DAILY PRN Per Protocol Protocol Multi-Ingred Cream/Lotion/Oil/Oint 1 applic 06/26/22 09:00 06/27/22 09:35 Hydrophilic Cream 180 Gm Tube TOPICAL 1 applic DAILY [facility] Administration Protocol Naloxone HCl 0.2 mg 06/22/22 01:27 Naloxone 0.4 Mg/Ml 1 Ml Vial IV Q2M PRN Opioid Reversal Nitroglycerin 0.4 mg 06/22/22 09:24 Nitroglycerin Sl Tabs 0.4 Mg Tab SUBLINGUAL Q5M PRN Chest Pain Nystatin 1 applic 06/22/22 16:00 06/27/22 15:06 Nystatin 100,000 Unit/Gm Powd 15 Gm TOPICAL 1 applic BID@0800,1600 [facility] Administration Protocol Ondansetron HCl 4 mg 06/22/22 01:27 Ondansetron 4 Mg/2 Ml Vial IVP Q8HR PRN Nausea And Vomiting Oxybutynin Chloride 10 mg 06/22/22 08:00 06/27/22 07:52 Oxybutynin 10 Mg Tab.Er.24 PO 10 mg DAILY@0800 [facility] Administration Pantoprazole Sodium 40 mg 06/22/22 20:00 06/27/22 19:33 Pantoprazole 40 Mg Tablet PO 40 mg HS@2000 [facility] Administration Polyethylene Glycol 17 gm 06/23/22 08:00 06/27/22 07:54 Polyethylene Glycol 3350 17 Gm Powd.Pack PO Not Given DAILY@0800 [facility] Vancomycin HCl 125 mg 06/23/22 13:00 06/27/22 23:41 Vancomycin 125 Mg Capsule PO 125 mg QID [facility] Administration Protocol Intake and Output 06/27/22 06/28/22 06/28/22 22:59 06:59 14:59 Intake Total 440 20 Output Total 800 327 30 Balance -800 113 -10 Intake: IV 440 20 Lactated Ringers 1,000 ml 140 20 @ 20 mls/hr IV .Q24H [facility] Rx#:[id number] Magnesium Sulfate-D5w Pmx 300 1 gm In Dextrose/Water 1 100ml.bag @ 100 mls/hr IVPB Q1H [facility] Rx#: [id number] Output: Urine 800 327 30 Other: Voiding Method Indwelling Catheter Weight 145.15 kg 159.6 kg 06/28/22 06:23 06/28/22 06:23
[2022-06-28] MEDS: HYDROPHILIC CREAM 180 GM TUBE TOPICAL SCH (09:04)
[2022-06-28] MEDS: polyethylene glycoL 3350 17 GM POWD.PACK PO SCH (09:04)
[2022-06-28] MEDS: NYSTATIN 100,000 UNIT/GM POWD 15 GM TOPICAL SCH ×2 (09:04→17:14)
[2022-06-28] MEDS: carvediloL 6.25 MG TAB PO SCH ×2 (09:17→17:14)
[2022-06-28] MEDS: CEFEPIME 2 GM in SODIUM CHLORIDE 0.9% 100 ML IVPB SCH ×2 (09:19→17:13)
[2022-06-28] MEDS: LEVOTHYROXINE 100 MCG TAB PO SCH (09:20)
[2022-06-28] MEDS: VANCOMYCIN 125 MG CAPSULE PO SCH ×4 (09:20→21:42)
[2022-06-28] MEDS: OXYBUTYNIN 10 MG TAB.ER.24 PO SCH (09:20)
--- NOTE | 2022-06-28 10:59 | P.CNPUL ---
History of Present Illness Consult date: 06/28/22 Requesting physician: Jerry Torrez Reason for consult: other (Acute sepsis) Chief complaint: Worsening abdominal cellulitis History of present illness: This is a 62-year-old female with history of multiple medical problems including morbid obesity, BMI of 56.8, history of paroxysmal atrial fibrillation, previous CVA, uterine cancer, undergoing chemotherapy, coronary artery disease, hypertens ion dyslipidemia type 2 diabetes, patient had chronic abdominal and perineal wounds from previous radiation for uterine carcinoma. Patient has been experiencing intermittent episodes of cellulitis, bleeding from her once, and she was admitted on 06/22/[address] Torrez, Patient presented with acute metabolic encephalopathy, acute kidney injury, and large abdominal wound and right groin wound with extensive cellulitis. Patient was seen by many consultants since admission including infectious disease, and she was receiving antibiotics for her pseudomonal infection. Last night, the patient had an episode of near syncope,/possibly vasovagal episode, a team responded to the patient and I was notified about this patient and her near syncopal episode. Recommended transferred to the ICU overnight, and patient did well overnight, did not require any major intervention. Remained on her usual medications and her usual antibiotics. And she is scheduled to undergo debridement of her wounds by general surgery today. WBC count today is 12.8 hemoglobin is 8.3 ABG last night showed a pO2 of 94 pCO2 of 31 pH of 7.49 and this was on 2 L nasal cannula. Basic metabolic profile is normal today renal profile is normal. Chest x-ray showed mostly coarse lung markings otherwise unremarkable Review of Systems GEN.: Generalized weakness fatigue malaise EYES: None HEENT: None NECK: None RESPIRATORY: None CARDIOVASCULAR: None GASTROINTESTINAL: None GENITOURINARY: None MUSCULOSKELETAL: Joint pains LYMPHATICS: None HEMATOLOGICAL: None PSYCHIATRY: Negative NEUROLOGICAL: None Skin: Chronic wounds being addressed by general surgery Past Medical History Past Medical History: Atrial Fibrillation, Cancer, Diabetes Mellitus, GE RD/Reflux, Hypertension, Thyroid Disorder Additional Past Medical History / Comment(s): Pt states she has had intermittent vaginal bleeding over past one year, NIDDM type II, UTIs, hypothyroid, chronic low back pain, occasional bilateral leg pain at night. Ovarian cancer with chemo and radiation. History of Any Multi-Drug Resistant Organisms: ESBL Date of last positivie culture/infection: 05/31/22 ESBL MDRO Source:: Groin Past Surgical History: Heart Catheterization, Tonsillectomy, Uterine Ablation Additional Past Surgical History / Comment(s): Nasal fracture with surgery, wisdom teeth extractions. Past Anesthesia/Blood Transfusion Reactions: Postoperative Nausea & Vomiting (PONV) Additional Past Anesthesia/Blood Transfusion Reaction / Comment(s): Pt received blood this hospitalization without reaction. Past Psychological History: Depression Additional Psychological History / Comment(s): Pt resides alone in an apartment. She uses a walker or cane. She drives. Smoking Status: Former smoker Past Alcohol Use History: None Reported Additional Past Alcohol Use History / Comment(s): PT started smoking as a teen and quit in 1994. Past Drug Use History: None Reported - Past Family History Father Family Medical History: Cancer Additional Family Medical History / Comment(s): Father of lung cancer. He was a smoker. Mother Family Medical History: Vascular Disorder Additional Family Medical History / Comment(s): Mother of a cerebral aneurysm at the age of 58 yrs. Medications and Allergies Home Medications Medication Instructions Recorded Confirmed Type Levothyroxine Sodium 200 mcg PO DAILY@0800 10/10/21 06/22/22 History Nitroglycerin Sl Tabs [Nitrostat] 0.4 mg SL Q5M PRN 10/10/21 06/22/22 History Omeprazole Magnesium [PriLOSEC OTC] 20 mg PO HS@199905/18/22 06/22/22 History Oxybutynin ER [Ditropan Xl] 10 mg PO DAILY@0805/18/22 06/22/22 History carvediloL [Coreg] 25 mg PO BID@0800,1600 05/18/22 06/22/22 History dilTIAZem HCL [Cardizem LA] 180 mg PO DAILY@0800 05/18/22 06/22/22 History metFORMIN HCL ER [Glucophage XR] 500 mg PO TID@0800,1200,1800 05/18/22 06/22/22 History Acetaminophen Tab [Tylenol] 650 mg PO Q4H PRN 06/22/22 06/22/22 History Acetaminophen/Diphenhydramine 2 tab PO HS PRN 06/22/22 06/22/22 History [Tylenol PM 500-25mg] Apixaban [Eliquis] 5 mg PO BID@0800,1600 06/22/22 06/22/22 History Atorvastatin [Lipitor] 40 mg PO HS@2000 06/22/22 06/22/22 History Digoxin [Lanoxin] 250 mcg PO DAILY@0800 06/22/22 06/22/22 History Docusate [Colace] 100 mg PO BID@0800,1600 06/22/22 06/22/22 History Ensure 1 can PO BID@0800,1600 06/22/22 06/22/22 History HYDROcodone/APAP 10-325MG [[place] 1 tab PO Q4HR PRN 06/22/22 06/22/22 History 10-325] Insulin Lispro [humaLOG Kwikpen] See Protocol SQ ACHS 06/22/22 06/22/22 History Nystatin 100,000 Unit/gm Powd 1 applic TOPICAL BID@0800,1600 06/22/22 06/22/22 History [Mycostatin Powder] Pro Stat 1 can PO BID@0800,1600 06/22/22 06/22/22 History oxyCODONE HCL 5 mg PO DAILY PRN 06/22/22 06/22/22 History polyethylene glycoL 3350 17 gm PO DAILY@0800 06/22/22 06/22/22 History [Polyethylene Glycol 3350] Allergies Allergy/AdvReac Type Severity Reaction Status Date / Time apixaban [From Eliquis] AdvReac Unsure, Verified 06/22/22 07:12 told by Solar Engineer not to take Physical Exam Vitals: Vital Signs Temp Pulse Pulse Pulse Resp BP BP 06/28/22 10:00 79 13 137/76 06/28/22 09:30 83 9 L 138/75 06/28/22 09:00 90 13 137/75 06/28/22 08:30 71 15 136/115 06/28/22 08:14 06/28/22 08:00 97.8 F 80 12 117/67 06/28/22 07:30 82 13 116/80 06/28/22 07:00 80 12 148/75 06/28/22 06:30 82 10 L 153/72 06/28/22 06:00 73 14 150/78 06/28/22 05:30 75 14 148/76 06/28/22 05:00 76 14 142/82 06/28/22 04:30 79 15 142/84 08/18/22 04:00 97.8 F 79 82 13 126/84 06/28/22 03:30 101 H 13 154/89 06/28/22 03:00 80 17 139/71 06/28/22 02:30 92 24 118/66 06/28/22 02:00 98 21 119/62 06/28/22 01:30 89 18 111/66 06/28/22 01:00 103 H 13 128/75 06/28/22 00:30 101 H 77 H 119/70 06/28/22 00:00 98.2 F 97 75 H 103/83 06/27/22 23:30 117 H 95 H 100/62 06/27/22 23:15 122 H 20 06/27/22 23:00 98 H 135/91 06/27/22 22:30 121 H 77 H 115/87 06/27/22 22:00 114 H 21 111/78 06/27/22 21:45 123 H 16 06/27/22 20:57 102.9 F H 117 H 25 H 149/77 06/27/22 19:31 100.4 F H 114 H 20 168/67 06/27/22 14:00 97.5 F L 77 18 132/80 Pulse Ox 06/28/22 10:00 95 06/28/22 09:30 95 06/28/22 09:00 94 L 06/28/22 08:30 95 06/28/22 08:14 96 06/28/22 08:00 96 06/28/22 07:30 100 06/28/22 07:00 98 06/28/22 06:30 97 06/28/22 06:00 95 06/28/22 05:30 99 06/28/22 05:00 93 L 06/28/22 04:30 98 06/28/22 04:00 98 06/28/22 03:30 97 06/28/22 03:00 98 06/28/22 02:30 97 06/28/22 02:00 97 06/28/22 01:30 97 06/28/22 01:00 96 06/28/22 00:30 97 06/28/22 00:00 96 06/27/22 23:30 97 06/27/22 23:15 06/27/22 23:00 95 06/27/22 22:30 95 06/27/22 22:00 97 06/27/22 21:45 96 06/27/22 20:57 92 L 06/27/22 19:31 96 06/27/22 14:00 98 Intake and Output 06/27/22 06/28/22 06/28/22 22:59 06:59 14:59 Intake Total 440 180 Output Total 800 327 115 Balance -800 113 65 Intake: IV 440 180 Cefepime 2 gm In Sodium 100 Chloride 0.9% 100 ml @ 25 mls/hr IVPB Q8HR [facility] Rx# :[id number] Lactated Ringers 1,000 ml 140 80 @ 20 mls/hr IV .Q24H [facility] Rx#:[id number] Magnesium Sulfate-D5w Pmx 300 1 gm In Dextrose/Water 1 100ml.bag @ 100 mls/hr IVPB Q1H [facility] Rx#: [id number] Output: Urine 800 327 115 Other: Voiding Method Indwelling Catheter Weight 145.15 kg 159.6 kg Physical Exam: Revealed a 62-year-old female in no distress looks slightly pale otherwise unremarkable. Head: Atraumatic, normocephalic. HEENT:[Neck is supple.] [No neck masses.] [No thyromegaly.] [No JVD.]EOMI, nonicteric, no neck masses, no JVD Chest: [Clear throughout, no crackles, no rhonchi, no wheezes.] Cardiac Exam: Irregular irregular rhythm. [Normal S1 and S2, no S3 gallop, 2/6 systolic murmur thought the precordium. Abdomen: Large pannus is noted. Right groin wound is noted necrotic tissue noted on the left side of the past [Obese, Soft, nontender, no megaly, no rebound, no guarding, normal bowel sounds.] Extremities: [No clubbing, no edema, no cyanosis.] Right groin wound is noted Neurological Exam: [Alert oriented 3 No focal neurologic deficit. Psychiatric: Normal mood affect and normal mental status examination. Musculoskeletal: No deformities and no limitation in range of motion.] Results - Laboratory Findings CBC and BMP: 06/28/22 06:23 06/28/22 06:23 ABG ABG pH 7.49 (7.35-7.45) H 06/27/22 21:07 ABG pCO2 31 mmHg (35-45) L 06/27/22 21:07 ABG pO2 94 mmHg (83-108) 06/27/22 21:07 ABG O2 Saturation 98.4 % (94-97) H 06/27/22 21:07 PT/INR, D-dimer PT 17.0 sec (9.0-12.0) H 06/27/22 20:00 INR 1.7 (<1.2) H 06/27/22 20:00 Abnormal lab findings: Abnormal Labs 06/21/22 06/21/22 06/21/22 22:24 22:24 22:24 WBC RBC 2.65 L Hgb 8.0 L D Hct 25.1 L MCHC RDW 17.8 H Immature Gran # Neutrophils # Lymphocytes # 0.3 L ESR PT 13.4 H INR 1.3 H APTT 35.3 H ABG pH ABG pCO2 ABG O2 Saturation Sodium 130 L Chloride 97 L Carbon Dioxide Anion Gap BUN 37 H Creatinine 1.92 H Est GFR (CKD-EPI)AfAm Est GFR (CKD-EPI)NonAf Glucose 111 H POC Glucose (mg/dL) Hemoglobin A1c Calcium 7.6 L Magnesium 1.5 L AST 145 H ALT 42 H Alkaline Phosphatase 341 H C-Reactive Protein Total Protein 4.8 L Albumin 2.1 L Albumin/Globulin Ratio Lipase Urine Appearance Urine Protein Urine Glucose (UA) Urine Ketones Urine Blood Urine Bilirubin Ur Leukocyte Esterase Urine RBC Urine WBC Urine Bacteria Hyaline Casts Urine Mucus C. difficile (EIA) Intrp 06/21/22 06/21/22 06/21/22 22:24 22:24 22:29 WBC RBC Hgb Hct MCHC RDW Immature Gran # Neutrophils # Lymphocytes # ESR PT INR APTT ABG pH ABG pCO2 ABG O2 Saturation Sodium Chloride Carbon Dioxide Anion Gap BUN Creatinine Est GFR (CKD-EPI)AfAm Est GFR (CKD-EPI)NonAf Glucose POC Glucose (mg/dL) Hemoglobin A1c 6.7 H Calcium Magnesium AST ALT Alkaline Phosphatase C-Reactive Protein Total Protein Albumin Albumin/Globulin Ratio Lipase 16 L Urine Appearance Cloudy H Urine Protein 1+ H Urine Glucose (UA) Urine Ketones Urine Blood Urine Bilirubin 1+ H Ur Leukocyte Esterase Large H Urine RBC Urine WBC 35 H Urine Bacteria Hyaline Casts Urine Mucus Occasional H C. difficile (EIA) Intrp 06/22/22 06/22/22 06/22/22 11:54 17:15 20:18 WBC RBC Hgb Hct MCHC RDW Immature Gran # Neutrophils # Lymphocytes # ESR PT INR APTT ABG pH ABG pCO2 ABG O2 Saturation Sodium Chloride Carbon Dioxide Anion Gap BUN Creatinine Est GFR (CKD-EPI)AfAm Est GFR (CKD-EPI)NonAf Glucose POC Glucose (mg/dL) 142 H 157 H 172 H Hemoglobin A1c Calcium Magnesium AST ALT Alkaline Phosphatase C-Reactive Protein Total Protein Albumin Albumin/Globulin Ratio Lipase Urine Appearance Urine Protein Urine Glucose (UA) Urine Ketones Urine Blood Urine Bilirubin Ur Leukocyte Esterase Urine RBC Urine WBC Urine Bacteria Hyaline Casts Urine Mucus C. difficile (EIA) Intrp 06/23/22 06/23/22 06/23/22 02:00 04:32 04:32 WBC RBC 2.47 L Hgb 7.2 L Hct 23.8 L MCHC 30.3 L RDW 18.2 H Immature Gran # 0.07 H Neutrophils # Lymphocytes # 0.24 L ESR 41 H PT INR APTT ABG pH ABG pCO2 ABG O2 Saturation Sodium 132 L Chloride Carbon Dioxide Anion Gap BUN 39.5 H Creatinine 2.4 H Est GFR (CKD-EPI)AfAm 24.6 L Est GFR (CKD-EPI)NonAf 21.2 L Glucose POC Glucose (mg/dL) Hemoglobin A1c Calcium 7.6 L Magnesium AST 109 H ALT 67 H Alkaline Phosphatase 361 H C-Reactive Protein 27.40 H Total Protein 4.8 L Albumin 2.1 L Albumin/Globulin Ratio 0.77 L Lipase Urine Appearance Urine Protein Urine Glucose (UA) Urine Ketones Urine Blood Urine Bilirubin Ur Leukocyte Esterase Urine RBC Urine WBC Urine Bacteria Hyaline Casts Urine Mucus C. difficile (EIA) Intrp Positive A 06/23/22 06/23/22 06/23/22 06:54 11:55 16:12 WBC RBC Hgb Hct MCHC RDW Immature Gran # Neutrophils # Lymphocytes # ESR PT INR APTT ABG pH ABG pCO2 ABG O2 Saturation Sodium Chloride Carbon Dioxide Anion Gap BUN Creatinine Est GFR (CKD-EPI)AfAm Est GFR (CKD-EPI)NonAf Glucose POC Glucose (mg/dL) 115 H 139 H 141 H Hemoglobin A1c Calcium Magnesium AST ALT Alkaline Phosphatase C-Reactive Protein Total Protein Albumin Albumin/Globulin Ratio Lipase Urine Appearance Urine Protein Urine Glucose (UA) Urine Ketones Urine Blood Urine Bilirubin Ur Leukocyte Esterase Urine RBC Urine WBC Urine Bacteria Hyaline Casts Urine Mucus C. difficile (EIA) Intrp 06/23/22 06/24/22 06/24/22 19:16 06:54 06:54 WBC RBC 2.65 L Hgb 7.6 L Hct 25.2 L MCHC 30.4 L RDW 17.6 H Immature Gran # Neutrophils # Lymphocytes # 0.2 L ESR PT INR APTT ABG pH ABG pCO2 ABG O2 Saturation Sodium 134 L Chloride Carbon Dioxide Anion Gap BUN 37 H Creatinine 1.55 H Est GFR (CKD-EPI)AfAm Est GFR (CKD-EPI)NonAf Glucose 104 H POC Glucose (mg/dL) 125 H Hemoglobin A1c Calcium 7.2 L Magnesium AST ALT Alkaline Phosphatase C-Reactive Protein Total Protein Albumin Albumin/Globulin Ratio Lipase Urine Appearance Urine Protein Urine Glucose (UA) Urine Ketones Urine Blood Urine Bilirubin Ur Leukocyte Esterase Urine RBC Urine WBC Urine Bacteria Hyaline Casts Urine Mucus C. difficile (EIA) Intrp 06/24/22 06/24/22 06/24/22 06:54 11:53 16:30 WBC RBC Hgb Hct MCHC RDW Immature Gran # Neutrophils # Lymphocytes # ESR PT INR APTT ABG pH ABG pCO2 ABG O2 Saturation Sodium Chloride Carbon Dioxide Anion Gap BUN Creatinine Est GFR (CKD-EPI)AfAm Est GFR (CKD-EPI)NonAf Glucose POC Glucose (mg/dL) 114 H 137 H 142 H Hemoglobin A1c Calcium Magnesium AST ALT Alkaline Phosphatase C-Reactive Protein Total Protein Albumin Albumin/Globulin Ratio Lipase Urine Appearance Urine Protein Urine Glucose (UA) Urine Ketones Urine Blood Urine Bilirubin Ur Leukocyte Esterase Urine RBC Urine WBC Urine Bacteria Hyaline Casts Urine Mucus C. difficile (EIA) Intrp 06/24/22 06/25/22 06/25/22 20:52 04:22 07:03 WBC RBC Hgb Hct MCHC RDW Immature Gran # Neutrophils # Lymphocytes # ESR PT INR APTT ABG pH ABG pCO2 ABG O2 Saturation Sodium 136 L Chloride Carbon Dioxide 21 L Anion Gap BUN 27 H Creatinine 1.16 H Est GFR (CKD-EPI)AfAm Est GFR (CKD-EPI)NonAf Glucose 104 H POC Glucose (mg/dL) 140 H 131 H Hemoglobin A1c Calcium 7.5 L Magnesium AST ALT Alkaline Phosphatase C-Reactive Protein Total Protein Albumin Albumin/Globulin Ratio Lipase Urine Appearance Urine Protein Urine Glucose (UA) Urine Ketones Urine Blood Urine Bilirubin Ur Leukocyte Esterase Urine RBC Urine WBC Urine Bacteria Hyaline Casts Urine Mucus C. difficile (EIA) Intrp 06/25/22 06/25/22 06/25/22 12:44 17:22 19:51 WBC RBC Hgb Hct MCHC RDW Immature Gran # Neutrophils # Lymphocytes # ESR PT INR APTT ABG pH ABG pCO2 ABG O2 Saturation Sodium Chloride Carbon Dioxide Anion Gap BUN Creatinine Est GFR (CKD-EPI)AfAm Est GFR (CKD-EPI)NonAf Glucose POC Glucose (mg/dL) 149 H 150 H 152 H Hemoglobin A1c Calcium Magnesium AST ALT Alkaline Phosphatase C-Reactive Protein Total Protein Albumin Albumin/Globulin Ratio Lipase Urine Appearance Urine Protein Urine Glucose (UA) Urine Ketones Urine Blood Urine Bilirubin Ur Leukocyte Esterase Urine RBC Urine WBC Urine Bacteria Hyaline Casts Urine Mucus C. difficile (EIA) Intrp 06/26/22 06/26/22 06/26/22 07:21 11:59 17:10 WBC RBC Hgb Hct MCHC RDW Immature Gran # Neutrophils # Lymphocytes # ESR PT INR APTT ABG pH ABG pCO2 ABG O2 Saturation Sodium Chloride Carbon Dioxide Anion Gap BUN Creatinine Est GFR (CKD-EPI)AfAm Est GFR (CKD-EPI)NonAf Glucose POC Glucose (mg/dL) 117 H 136 H 131 H Hemoglobin A1c Calcium Magnesium AST ALT Alkaline Phosphatase C-Reactive Protein Total Protein Albumin Albumin/Globulin Ratio Lipase Urine Appearance Urine Protein Urine Glucose (UA) Urine Ketones Urine Blood Urine Bilirubin Ur Leukocyte Esterase Urine RBC Urine WBC Urine Bacteria Hyaline Casts Urine Mucus C. difficile (EIA) Intrp 06/26/22 06/27/22 06/27/22 19:05 04:31 04:31 WBC RBC 2.67 L Hgb 7.5 L Hct 25.1 L MCHC 29.9 L RDW 18.6 H Immature Gran # 0.15 H Neutrophils # Lymphocytes # 0.39 L ESR PT INR APTT ABG pH ABG pCO2 ABG O2 Saturation Sodium Chloride Carbon Dioxide Anion Gap 7.90 L BUN Creatinine Est GFR (CKD-EPI)AfAm Est GFR (CKD-EPI)NonAf Glucose POC Glucose (mg/dL) 121 H Hemoglobin A1c Calcium 7.6 L Magnesium AST ALT Alkaline Phosphatase C-Reactive Protein Total Protein Albumin Albumin/Globulin Ratio Lipase Urine Appearance Urine Protein Urine Glucose (UA) Urine Ketones Urine Blood Urine Bilirubin Ur Leukocyte Esterase Urine RBC Urine WBC Urine Bacteria Hyaline Casts Urine Mucus C. difficile (EIA) Intrp 06/27/22 06/27/22 06/27/22 11:56 20:00 20:00 WBC 14.8 H RBC 3.12 L Hgb 8.8 L Hct 29.0 L MCHC 30.3 L RDW 17.9 H Immature Gran # Neutrophils # 14.0 H Lymphocytes # 0.2 L ESR PT 17.0 H INR 1.7 H APTT ABG pH ABG pCO2 ABG O2 Saturation Sodium Chloride Carbon Dioxide Anion Gap BUN Creatinine Est GFR (CKD-EPI)AfAm Est GFR (CKD-EPI)NonAf Glucose POC Glucose (mg/dL) 127 H Hemoglobin A1c Calcium Magnesium AST ALT Alkaline Phosphatase C-Reactive Protein Total Protein Albumin Albumin/Globulin Ratio Lipase Urine Appearance Urine Protein Urine Glucose (UA) Urine Ketones Urine Blood Urine Bilirubin Ur Leukocyte Esterase Urine RBC Urine WBC Urine Bacteria Hyaline Casts Urine Mucus C. difficile (EIA) Intrp 06/27/22 06/27/22 06/27/22 20:00 20:50 21:07 WBC RBC Hgb Hct MCHC RDW Immature Gran # Neutrophils # Lymphocytes # ESR PT INR APTT ABG pH 7.49 H ABG pCO2 31 L ABG O2 Saturation 98.4 H Sodium Chloride Carbon Dioxide 21 L Anion Gap BUN Creatinine Est GFR (CKD-EPI)AfAm Est GFR (CKD-EPI)NonAf Glucose 121 H POC Glucose (mg/dL) 132 H Hemoglobin A1c Calcium 7.7 L Magnesium 1.1 L AST ALT Alkaline Phosphatase C-Reactive Protein Total Protein Albumin Albumin/Globulin Ratio Lipase Urine Appearance Urine Protein Urine Glucose (UA) Urine Ketones Urine Blood Urine Bilirubin Ur Leukocyte Esterase Urine RBC Urine WBC Urine Bacteria Hyaline Casts Urine Mucus C. difficile (EIA) Intrp 06/27/22 06/28/22 06/28/22 23:45 06:23 06:23 WBC 12.8 H RBC 2.87 L Hgb 8.3 L Hct 27.3 L MCHC 30.3 L RDW 17.8 H Immature Gran # Neutrophils # 11.9 H Lymphocytes # 0.1 L ESR PT INR APTT ABG pH ABG pCO2 ABG O2 Saturation Sodium Chloride Carbon Dioxide Anion Gap BUN Creatinine Est GFR (CKD-EPI)AfAm Est GFR (CKD-EPI)NonAf Glucose 169 H POC Glucose (mg/dL) Hemoglobin A1c Calcium 7.2 L Magnesium AST ALT Alkaline Phosphatase C-Reactive Protein Total Protein Albumin Albumin/Globulin Ratio Lipase Urine Appearance Cloudy H Urine Protein 3+ H Urine Glucose (UA) Trace H Urine Ketones 1+ H Urine Blood Large H Urine Bilirubin Ur Leukocyte Esterase Small H Urine RBC 49 H Urine WBC 49 H Urine Bacteria Occasional H Hyaline Casts 8 H Urine Mucus Few H C. difficile (EIA) Intrp 06/28/22 06:41 WBC RBC Hgb Hct MCHC RDW Immature Gran # Neutrophils # Lymphocytes # ESR PT INR APTT ABG pH ABG pCO2 ABG O2 Saturation Sodium Chloride Carbon Dioxide Anion Gap BUN Creatinine Est GFR (CKD-EPI)AfAm Est GFR (CKD-EPI)NonAf Glucose POC Glucose (mg/dL) 153 H Hemoglobin A1c Calcium Magnesium AST ALT Alkaline Phosphatase C-Reactive Protein Total Protein Albumin Albumin/Globulin Ratio Lipase Urine Appearance Urine Protein Urine Glucose (UA) Urine Ketones Urine Blood Urine Bilirubin Ur Leukocyte Esterase Urine RBC Urine WBC Urine Bacteria Hyaline Casts Urine Mucus C. difficile (EIA) Intrp - Diagnostic Findings Chest x-ray: image reviewed (As noted in HPI) Assessment and Plan Assessment: Impression: Suspect brief vasovagal episode, resolved Paroxysmal atrial fibrillation Right groin complex 1 Chronic panniculitis involving left abdominal wall. In the area of the left lower quadrant. Sepsis secondary to above. History of uterine cancer status post chemoradiation. Type 2 diabetes. History of C. difficile colitis. Chronic anemia. Recommendation: Patient did well overnight in the ICU, no major issues noted. Will transfer the patient to regular medical floor again. We'll recommend surgery to proceed with wound debridement and possibly wound VAC placement Continue antibiotics as per infectious disease on the case. Continue to hold Lovenox and anticoagulations therapy for now until surgery is done. Will follow on as needed basis. Time with Patient: Greater than 30
--- NOTE | 2022-06-28 11:48 | P.PN ---
Progress Note - Text Progress Note Date: 06/28/22 Chief Complaint: Anemia This is a pleasant 62-year-old patient, follows with Dr. Smooth Bob. Chronic stable medical conditions include diabetes, GERD, essential hypertension, hypothyroid. Chronic low back pain. Ovarian cancer treatment for chemo and radiation treatment. September 2021 was having significant vaginal bleeding. 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 No metastatic disease. She was not felt to be surgical candidate and was to receive 3 cycles of carboplatin/Taxol followed by radiation and 3 additional cycles of the above. She completed radi ation on 03/14/2022. Started back on the carbotaxol April 03 and was status post cycle 6 day 1 on May 16. May 2022: Stroke found in the left coronary radiata on the posterior aspect of left frontal lobe. Was placed on eliquis for atrial fibrillation. On recent admission patient to have a significant wound on the right groin and abdominal pannus. Was seen by Dr. mcdermott from [facility] and Dr. Kasper from general surgery. May 31 underwent wound debridement by Dr. Kasper. Cultures were positive for ESBL klebsiella. Covered with vancomycin and meropenem. June 01 patient was transferred to [facility] for further management of deep wounds. Patient now presents here from [facility]. Patient become more lethargic. Difficult to arouse. Hypoxic on room air 82%. Placed on 5 L of oxygen. Patient was vomiting up on arrival of the EMS. Patient states that she is not been eating much. Kidney function is much worse since he has recently. Not eating drinking enough. Wounds are present. Patient rather lethargic during history taking. Tired easily. Patient has been nonambulatory since discharge June 23: Tired. Barely eating. Kidney function is worse. Changed to pured diet. IV fluids to continue. Wound care per surgery and ID. Foul-smelling diarrhea. Positive for C. diff. June 24: Decreased oral intake. Encouraged. On by mouth vancomycin. Some improvement in kidney function. Getting IV fluids. More awake today. June 25: For more awake. Does not like hospital food. Patient seen by the wound care team in general surgery. General surgery is pending for debridement below the pannus. Eliquis held. Also plan is to try a wound VAC. Patient encouraged to eat. Diarrhea. C. diff better. Only 2 bowel movements since yesterday evening. Kidney function improving. IV fluids cutback. June 26: Patient be placed on Lovenox subcu every 12 to bridge until the evening before the procedure that is on . Discussed with the patient and nurse. Oral intake fair. Wound care per surgery and wound care team. Diarrhea is better. June 27: Patient to hold Lovenox dose after tonight. For debridement of the left pannus wound and right groin wound tomorrow by Dr. Kasper and placement of wound VAC in the OR. Otherwise patient tolerating a diet. June 28: Yesterday evening patient developed a fever. Following that patient became hypoxic and coughing. Gay to be aspiration. Was moved to the ICU. Getting better this morning. Seen by diabetes clinical manager. Change of consciousness felt to be metabolic from hypoxia. Now resolved. Patient awake communicating. Discussed with Dr. Kasper from general surgery. She'll postpone debridement to tomorrow. Fever is felt to be from the wound. Also blood cultures growing gram-positive cocci in pairs. Active Medications Acetaminophen (Acetaminophen Tab 325 Mg Tab) 650 mg PO Q4H PRN PRN Reason: Fever Last Admin: 06/27/22 20:25 Dose: 650 mg Hydrocodone Bitart/Acetaminophen (Hydrocodone/Apap 10-325mg 1 Each Tab) 1 each PO Q4HR PRN PRN Reason: Pain Last Admin: 06/27/22 22:14 Dose: 1 each Atorvastatin Calcium (Atorvastatin 40 Mg Tab) 40 mg PO HS@2000 [facility] Last Admin: 06/27/22 19:33 Dose: 40 mg Carvedilol (Carvedilol 6.25 Mg Tab) 6.25 mg PO BID@0800,1600 [facility] Last Admin: 06/28/22 09:17 Dose: 6.25 mg Dextrose/Water (Dextrose 50% Syringe 50 Ml) 25 ml IVP PER PROTOCOL PRN; Protocol PRN Reason: Hypoglycemia Dextrose/Water (Dextrose 50% Syringe 50 Ml) 50 ml IVP PER PROTOCOL PRN; Protocol PRN Reason: Hypoglycemia Lactated Ringer's (Lactated Ringers) 1,000 mls @ 20 mls/hr IV .Q24H [facility] Last Admin: 06/27/22 19:33 Dose: 20 mls/hr Cefepime HCl 2 gm/ Sodium (Chloride) 100 mls @ 25 mls/hr IVPB Q8HR [facility]; Protocol Last Admin: 06/28/22 09:19 Dose: 25 mls/hr Insulin Aspart (Insulin Aspart (Novolog) 100 Unit/Ml Vial) 0 unit SQ AC-TID [facility]; Protocol Last Admin: 06/28/22 06:44 Dose: 2 unit Iopamidol (Iopamidol Contrast (Oral Use) Vial) 30 ml PO Q60M PRN PRN Reason: CT Scan Stop: 06/29/22 11:11 Levothyroxine Sodium (Levothyroxine 100 Mcg Tab) 200 mcg PO DAILY@0800 [facility] Last Admin: 06/28/22 09:20 Dose: 200 mcg Miscellaneous Information (Magnesium Replacement Protocol 1 Each Misc) 1 each MISCELLANE DAILY PRN; Protocol PRN Reason: Per Protocol Multi-Ingred Cream/Lotion/Oil/Oint (Hydrophilic Cream 180 Gm Tube) 1 applic TOPICAL DAILY [facility]; Protocol Last Admin: 06/28/22 09:04 Dose: Not Given Naloxone HCl (Naloxone 0.4 Mg/Ml 1 Ml Vial) 0.2 mg IV Q2M PRN PRN Reason: Opioid Reversal Nitroglycerin (Nitroglycerin Sl Tabs 0.4 Mg Tab) 0.4 mg SUBLINGUAL Q5M PRN PRN Reason: Chest Pain Nystatin (Nystatin 100,000 Unit/Gm Powd 15 Gm) 1 applic TOPICAL BID@0800,1600 [facility]; Protocol Last Admin: 06/28/22 09:04 Dose: Not Given Ondansetron HCl (Ondansetron 4 Mg/2 Ml Vial) 4 mg IVP Q8HR PRN PRN Reason: Nausea And Vomiting Oxybutynin Chloride (Oxybutynin 10 Mg Tab.Er.24) 10 mg PO DAILY@0800 [facility] Last Admin: 06/28/22 09:20 Dose: 10 mg Pantoprazole Sodium (Pantoprazole 40 Mg Tablet) 40 mg PO HS@2000 [facility] Last Admin: 06/27/22 19:33 Dose: 40 mg Polyethylene Glycol (Polyethylene Glycol 3350 17 Gm Powd.Pack) 17 gm PO DAILY@0800 [facility] Last Admin: 06/28/22 09:04 Dose: Not Given Vancomycin HCl (Vancomycin 125 Mg Capsule) 125 mg PO QID [facility]; Protocol Last Admin: 06/28/22 09:20 Dose: 125 mg Past medical history to include: Atrial fibrillation, diabetes, GERD, hypertension, hypothyroid, ovarian cancer with chemo and radiation treatment. Depression. Stroke. Social history: [facility] Patient started smoking as a teenager and stopped in 1994. No alcohol. Family history: Father of lung cancer Physical examination: VITAL SIGNS: Fever of 102.9 last night with a heart rate of 120. This mornin.8, 80, 15, 1 36 x 1 15, 95% on 3 L GENERAL: Laying in bed, awake, tired EYES: Pupils equal. Conjunctiva normal. HEENT: External appearance of nose and ears normal, oral cavity dry mucous membranes NECK: JVD unable to assess; masses not palpable. HEART: Heart sounds irregular; slight edema. LUNGS: Respiratory rate normal; distant breath sound. ABDOMEN: Soft, nontender, liver spleen not palpable, no masses palpable. Perianal wounds C wound care notes. PSYCH: Answering questions appropriately MUSCULOSKELETAL:No Clubbing/cyanosis;muscles-grossly intact, evidence of OA DERMATOLOGICAL: Deep wound in the abdominal pannus and in the right groin. See nursing notes for pictures INVESTIGATIONS, reviewed in the clinical context: Blood culture [June 27]: Gram-positive cocci June 28: WBC 12.8 hemoglobin 8.3 potassium 4.1 creatinine 0.99 June 27: WBC 7.7 hemoglobin 7.5 potassium 4 creatinine 0.9 June 25: Potassium 4.2 BUN 27 creatinine 1.16 June 24: White count 7.9 hemoglobin 7.6 platelets 346 potassium 4.2 BUN 37 creatinine 1.55 June 23: White count 7.9 hemoglobin 7.2 platelets 311 potassium 4.9 creatinine 2.4 CRP 0.77 White count 7.7 hemoglobin 8 platelets 348 sodium 1:30 potassium 4.7 BUN 37 creatinine 1.9 to AST 145 ALT 42 albumin 2.1 EKG tracing personally reviewed by me-personally reviewed by me: Atrial fibrilla tion. Rate 60 Chest x-ray film personally reviewed by me-portable. Underpenetrated. Borderline cardiomegaly From recent admission: 06/01/2022: BUN 19 creatinine 0.93 MRI brain without contrast: Acute/subacute CVA of the left coronary radiata on the posterior aspect of the left frontal lobe. Nonspecific white matter changes. CT brain: Mild atrophic CT angiography of the brain: Nonspecific 2-D echocardiogram: EF 55-60%, severe LVH Assessment and plan: -Acute metabolic encephalopathy from acute kidney injury, upon presentation: Improved -Sepsis with positive blood cultures gram-positive cocci: New diagnosis Being followed by ID. -Aspiration pneumonia: Clinically better On IV cefepime -Acute kidney injury combination of prerenal and ATN.: Improved Stop metformin. IV fluids -Acute C. diff colitis from recent antibiotics: Better Oral vancomycin started 125 mg by mouth 4 times a day. -Chronic Large wound on the abdominal pannus and right groin: Not improving Plan from wound VAC on the right groin wound. Debridement of both the wounds tomorrow per Dr. Kasper -Acute stroke in the left johnston radiata on the posterior aspect of the left frontal lobe. suspected to be embolic from underlying paroxysmal atrial fibrillation, on 05/18/2022 Eliquis held for debridement. No aspirin. -Persistent atrial fibrillation: Rate controlled eliquis. Coreg 6.25 mg twice a day.. [Cardizem CD 180 mg a day. And digitoxin to be held] -Chronic dysphagia from underlying stroke : Chopped diet -Diabetes mellitus type 2 on oral hypoglycemic Hold metformin. Follow Accu-Cheks -Morbid obesity BMI 51.6 Weight loss measures -GERD Prilosec 20 mg -Essential hypertension, currently blood pressure running low Coreg 6.25 mg twice a day, hold Cardizem -Chronic urinary stress incontinence Ditropan XL 10 mg a day -Hypothyroid Synthroid 200 g a day -Acute on chronic medical debility multifactorial -DO NOT RESUSCITATE Anticoagulation hold for debridement. Oral vancomycin and IV cefepime. Debridement postponed till tomorrow. Patient smoked to the ICU overnight. Will be moved back to the medical floor. CODE STATUS was discussed with the patient. She wants no ventilation/no CPR DO NOT RESUSCITATE. Total time spent about 40 minutes with over 25 minutes of discussion. Also discussed with Dr. Whiet. Dr. Kasper
[2022-06-28 11:52] LABS: Glucose,Whole Blood 141 mg/dL (70-110)
[2022-06-28] MEDS: IOPAMIDOL CONTRAST (ORAL USE) VIAL PO PRN ×2 (12:15→13:13)
[2022-06-28] MEDS: HYDROcodone/APAP 10-325MG 1 EACH TAB PO PRN ×2 (12:27→17:13)
--- NOTE | 2022-06-28 13:29 | P.PN ---
Subjective Progress Note Date: 06/28/22 CHIEF COMPLAINT: Right groin HISTORY OF PRESENT ILLNESS: The patient is a 62 year old female with super m orbid obesity presents with radionecrosis of the right groin and complex right groin wound. Patient required a transfer to the ICU yesterday possible aspiration and vasovagal episode. Patient became hypoxic and had been coughing. Patient seen by critical care service and cardiology. Surgery for today has been canceled. Case was discussed with medicine service. She did have a temp of 102.9 last night white count did trend down from 14-12.8 Hgb 8.3 platelets 342 sodium 138 potassium is 4.1 creatinine 0.99 magnesium 1.6 PHYSICAL EXAM: VITAL SIGNS: Reviewed GENERAL: Well-developed in no acute distress. HEENT: No sclera icterus. Extraocular movements grossly intact. Moist buccal mucosa. Head is atraumatic, normocephalic. Hears conversational speech. No nasal drainage. NECK: Supple without lymphadenopathy. CHEST: Non-labored respirations and equal bilateral excursions. CARDIOVASCULAR: Palpable 2+ radial pulses. ABDOMEN: Large pannus. right groin wound. Necrotic tissue noted under the left side of the pannus MUSCULOSKELETAL: No clubbing or cyanosis. NEUROLOGIC: No focal or lateralizing signs. Cranial nerves II through XII grossly intact. PSYCH: Appropriate affect. Alert and oriented to person, place and time. SKIN: Well perfused. Good skin turgor. ASSESSMENT: 1. Right groin complex wound 2. Panniculitis 3. Morbid obesity due to excess calories, BMI 51.6 4. Uterine cancer status post chemoradiation 5. Diabetes type 2, insulin-dependent 6. Chronic history atrial fibrillation 7. Anemia 8. C. diff colitis 9. Left necrotic tissue under the pannus PLAN: -Computed tomography scan of abdomen and pelvis has been ordered for today for further evaluation of right groin wound and abdominal pain -Patient surgery for today has been canceled -Patient's debridement will be rescheduled -Further recommendations forthcoming per Dr. Nolasco -Continue Renny protein supplement -Continue local wound care -Continue treatment for C. diff colitis -Hold Lovenox the evening before and morning of surgery -Okay for ground diet from surgical standpoint Physician Music Publisher note has been reviewed by physician. Signing provider agrees with the documented findings, assessment, and plan of care. Objective - Vital Signs Vital signs: Vital Signs Temp 97.8 F 06/28/22 08:00 Pulse 79 06/28/22 10:00 Resp 13 06/28/22 10:00 BP 137/76 06/28/22 10:00 Pulse Ox 95 06/28/22 10:00 FiO2 Intake & Output 06/27/22 06/28/22 06/28/22 18:59 06:59 18:59 Intake Total 118 440 180 Output Total 1650 327 115 Balance -1532 113 65 Weight 145.15 kg 159.6 kg Intake: IV 440 180 Cefepime 2 gm In Sodium 100 Chloride 0.9% 100 ml @ 25 mls/hr IVPB Q8HR [facility] Rx# :[id number] Lactated Ringers 1,000 ml 140 80 @ 20 mls/hr IV .Q24H [facility] Rx#:[id number] Magnesium Sulfate-D5w Pmx 300 1 gm In Dextrose/Water 1 100ml.bag @ 100 mls/hr IVPB Q1H [facility] Rx#: [id number] Oral 118 Output: Urine 1650 327 115 Other: Voiding Method Indwelling Catheter Indwelling Catheter # Voids 1 # Bowel Movements 0 - Labs CBC & Chem 7: 06/28/22 06:23 06/28/22 06:23 Labs: Abnormal Lab Results - Last 24 Hours (Table) 06/27/22 06/27/22 06/27/22 Range/Units 11:56 20:00 20:00 WBC 14.8 H (3.8-10.6) k/uL RBC 3.12 L (3.80-5.40) m/uL Hgb 8.8 L (11.4-16.0) gm/dL Hct 29.0 L (34.0-46.0) % MCHC 30.3 L (31.0-37.0) g/dL RDW 17.9 H (11.5-15.5) % Neutrophils # 14.0 H (1.3-7.7) k/uL Lymphocytes # 0.2 L (1.0-4.8) k/uL PT 17.0 H (9.0-12.0) sec INR 1.7 H (<1.2) ABG pH (7.35-7.45) ABG pCO2 (35-45) mmHg ABG O2 Saturation (94-97) % Carbon Dioxide (22-30) mmol/L Glucose (74-99) mg/dL POC Glucose (mg/dL) 127 H (70-110) mg/dL Calcium (8.4-10.2) mg/dL Magnesium (1.6-2.3) mg/dL Urine Appearance (Clear) Urine Protein (Negative) Urine Glucose (UA) (Negative) Urine Ketones (Negative) Urine Blood (Negative) Ur Leukocyte Esterase (Negative) Urine RBC (0-5) /hpf Urine WBC (0-5) /hpf Urine Bacteria (None) /hpf Hyaline Casts (0-2) /lpf Urine Mucus (None) /hpf 06/27/22 06/27/22 06/27/22 Range/Units 20:00 20:50 21:07 WBC (3.8-10.6) k/uL RBC (3.80-5.40) m/uL Hgb (11.4-16.0) gm/dL Hct (34.0-46.0) % MCHC (31.0-37.0) g/dL RDW (11.5-15.5) % Neutrophils # (1.3-7.7) k/uL Lymphocytes # (1.0-4.8) k/uL PT (9.0-12.0) sec INR (<1.2) ABG pH 7.49 H (7.35-7.45) ABG pCO2 31 L (35-45) mmHg ABG O2 Saturation 98.4 H (94-97) % Carbon Dioxide 21 L (22-30) mmol/L Glucose 121 H (74-99) mg/dL POC Glucose (mg/dL) 132 H (70-110) mg/dL Calcium 7.7 L (8.4-10.2) mg/dL Magnesium 1.1 L (1.6-2.3) mg/dL Urine Appearance (Clear) Urine Protein (Negative) Urine Glucose (UA) (Negative) Urine Ketones (Negative) Urine Blood (Negative) Ur Leukocyte Esterase (Negative) Urine RBC (0-5) /hpf Urine WBC (0-5) /hpf Urine Bacteria (None) /hpf Hyaline Casts (0-2) /lpf Urine Mucus (None) /hpf 06/27/22 06/28/22 06/28/22 Range/Units 23:45 06:23 06:23 WBC 12.8 H (3.8-10.6) k/uL RBC 2.87 L (3.80-5.40) m/uL Hgb 8.3 L (11.4-16.0) gm/dL Hct 27.3 L (34.0-46.0) % MCHC 30.3 L (31.0-37.0) g/dL RDW 17.8 H (11.5-15.5) % Neutrophils # 11.9 H (1.3-7.7) k/uL Lymphocytes # 0.1 L (1.0-4.8) k/uL PT (9.0-12.0) sec INR (<1.2) ABG pH (7.35-7.45) ABG pCO2 (35-45) mmHg ABG O2 Saturation (94-97) % Carbon Dioxide (22-30) mmol/L Glucose 169 H (74-99) mg/dL POC Glucose (mg/dL) (70-110) mg/dL Calcium 7.2 L (8.4-10.2) mg/dL Magnesium (1.6-2.3) mg/dL Urine Appearance Cloudy H (Clear) Urine Protein 3+ H (Negative) Urine Glucose (UA) Trace H (Negative) Urine Ketones 1+ H (Negative) Urine Blood Large H (Negative) Ur Leukocyte Esterase Small H (Negative) Urine RBC 49 H (0-5) /hpf Urine WBC 49 H (0-5) /hpf Urine Bacteria Occasional H (None) /hpf Hyaline Casts 8 H (0-2) /lpf Urine Mucus Few H (None) /hpf 06/28/22 Range/Units 06:41 WBC (3.8-10.6) k/uL RBC (3.80-5.40) m/uL Hgb (11.4-16.0) gm/dL Hct (34.0-46.0) % MCHC (31.0-37.0) g/dL RDW (11.5-15.5) % Neutrophils # (1.3-7.7) k/uL Lymphocytes # (1.0-4.8) k/uL PT (9.0-12.0) sec INR (<1.2) ABG pH (7.35-7.45) ABG pCO2 (35-45) mmHg ABG O2 Saturation (94-97) % Carbon Dioxide (22-30) mmol/L Glucose (74-99) mg/dL POC Glucose (mg/dL) 153 H (70-110) mg/dL Calcium (8.4-10.2) mg/dL Magnesium (1.6-2.3) mg/dL Urine Appearance (Clear) Urine Protein (Negative) Urine Glucose (UA) (Negative) Urine Ketones (Negative) Urine Blood (Negative) Ur Leukocyte Esterase (Negative) Urine RBC (0-5) /hpf Urine WBC (0-5) /hpf Urine Bacteria (None) /hpf Hyaline Casts (0-2) /lpf Urine Mucus (None) /hpf Microbiology - Last 24 Hours (Table) 06/27/22 21:20 Blood Culture Gram Stain - Preliminary Blood 06/27/22 20:00 Blood Culture Gram Stain - Preliminary Blood 06/27/22 23:45 Urine Culture - Preliminary Urine,Voided 06/27/22 20:00 Blood Culture - Final Blood 06/27/22 21:20 Blood Culture - Final Blood 06/22/22 22:46 Blood Culture - Preliminary Blood No Growth after 120 hours
--- NOTE | 2022-06-28 14:51 | CT ---
EXAMINATION TYPE: CT abdomen pelvis w con DATE OF EXAM: 06/28/2022 COMPARISON: Ultrasound 06/22/2022, CT scan 05/16/2022 HISTORY: Abdominal pain and unhealing wound. CT DLP: 4068.4 mGycm Automated exposure control for dose reduction was used. CONTRAST: CT scan of the abdomen pelvis is performed with IV Contrast, patient injected with 100ml mL of Isovue 300. FINDINGS- LUNG BASES-bilateral pleural effusion with left lower lobe consolidation. Calcification of the annulu s suspected.. LIVER/GB-liver homogeneous. Mild prominence of the gallbladder with tiny density seen in the gallblad romelia which likely correspond to the ultrasound of 06/22/2022. Low-attenuation of the liver can be asso ciated with hepatic steatosis. PANCREAS- No gross abnormality is seen. SPLEEN-5 mm posterior splenic lesion too small to characterize. ADRENALS- No gross abnormality is seen. KIDNEYS/BLADDER- no hydronephrosis or nephrolithiasis. Indeterminate subcentimeter midpole left renal cortical lesion. Statistically most likely related to cyst. BOWEL-bowel gas pattern nonspecific. No definite obstruction. Mild wall thickening of the right colon extending into the hepatic flexure.. LYMPH NODES- No greater than 1cm abdominal or pelvic lymph nodes areappreciated. OSSEOUS STRUCTURES-arthropathy of the hips. Hypertrophic and degenerative changes of the spine. Multi level severe degenerative disc disease with vacuum disc. A calcification of posterior longitudinal li gament, posterior spondylosis or calcified posterior disc protrusion L1-2 and L2-L3. OTHER- there is diffuse soft tissue edema. A few bubbles of air are seen anteriorly within the subcu taneous tissue there is marked skin thickening which is only partially included in the acuyn-ih-twgs and along the right abdomen extending toward the right groin. This may be related to the patient's hi story of nonhealing wound. Correlate for cellulitis. Sutherland catheter noted in the bladder. There appears to be evidence of stable size to the uterus and en dometrium not well visualized. Patient with a reported history of endometrial carcinoma. This could b e further evaluated with ultrasound as clinically warranted. IMPRESSION- 1. Soft tissue edema with skin thickening and suggestion of soft tissue wound along the right abdomen and right groin. Correlate for cellulitis. No definable subcutaneous abscess. 2. Mild wall thickening of the right colon. Correlate for mild colitis versus incomplete distention. 3. Bilateral small pleural effusion. 4. Mild prominence of the gallbladder with probable cholelithiasis as reported by ultrasound. 5. Patient with reported history of endometrial cancer. Uterus and endometrium are not seen well enou gh by CAT scan. This could be correlated with pelvic ultrasound as clinically warranted.
[2022-06-28 17:09] LABS: Glucose,Whole Blood 121 mg/dL (70-110)
[2022-06-28] MEDS: LACTATED RINGERS 1,000 ML IV SCH (17:15)
--- NOTE | 2022-06-28 17:22 | P.PN ---
Subjective Progress Note Date: 06/28/22 Principal diagnosis: R groin wound and diarrhea Patient is a 62-year-old female with a past medical history significant for uterine cancer status post chemoradiation with significant skin necrosis to the right groin area status post extensive surgery department culture with ESBL E. coli for the patient apparently has come having right therapy subsequently presenting back to the hospital for weakness mental status change and dehydration and apparently the patient also have a diarrhea and stool for significantly positive. On today's evaluation that is 06/28/2022, patient did spike a fever last night and did have some shortness of breath for the patient was transferred to the ICU, the patient mentioned did not remember any of that she is currently breathing comfortably on nasal cannula oxygen. Denies having any chest pain no worsening cough or sputum production abdominal pain is currently controlled and denies any worsening diarrhea Objective - Vital Signs Vital signs: Vital Signs Temp 97.7 F 06/28/22 12:00 Pulse 70 06/28/22 13:00 Resp 33 H 06/28/22 13:00 BP 142/85 06/28/22 13:30 Pulse Ox 97 06/28/22 12:30 FiO2 Intake & Output 06/27/22 06/28/22 06/28/22 18:59 06:59 18:59 Intake Total 740 318 8541 Output Total 1650 327 215 Balance -5862 416 4092 Weight 145.15 kg 159.6 kg Intake: IV 440 260 Cefepime 2 gm In Sodium 100 Chloride 0.9% 100 ml @ 25 mls/hr IVPB Q8HR [facility] Rx# :[id number] Lactated Ringers 1,000 ml 140 160 @ 20 mls/hr IV .Q24H [facility] Rx#:[id number] Magnesium Sulfate-D5w Pmx 300 1 gm In Dextrose/Water 1 100ml.bag @ 100 mls/hr IVPB Q1H [facility] Rx#: [id number] Oral 118 1200 Output: Urine 1650 327 215 Other: Voiding Method Indwelling Catheter Indwelling Catheter Indwelling Catheter # Voids 1 # Bowel Movements 0 - Exam GENERAL DESCRIPTION: Middle-aged female lying in bed, no distress. No tachypnea or accessory muscle of respiration use. LUNGS: Unlabored breathing. Clear to auscultation anteriorly. No wheeze or crackle. HEART: S1, S2, regular rate and rhythm. No loud murmur ABDOMEN: Soft, no tenderness , did have extensive wound to the right groin covered with the dressing no drainage of the dressing EXTREMITIES: Diffuse swelling bilateral lower extremity. - Labs CBC & Chem 7: 06/28/22 06:23 06/28/22 06:23 Labs: Abnormal Lab Results - Last 24 Hours (Table) 06/27/22 06/27/22 06/27/22 Range/Units 20:00 20:00 20:00 WBC 14.8 H (3.8-10.6) k/uL RBC 3.12 L (3.80-5.40) m/uL Hgb 8.8 L (11.4-16.0) gm/dL Hct 29.0 L (34.0-46.0) % MCHC 30.3 L (31.0-37.0) g/dL RDW 17.9 H (11.5-15.5) % Neutrophils # 14.0 H (1.3-7.7) k/uL Lymphocytes # 0.2 L (1.0-4.8) k/uL PT 17.0 H (9.0-12.0) sec INR 1.7 H (<1.2) ABG pH (7.35-7.45) ABG pCO2 (35-45) mmHg ABG O2 Saturation (94-97) % Carbon Dioxide 21 L (22-30) mmol/L Glucose 121 H (74-99) mg/dL POC Glucose (mg/dL) (70-110) mg/dL Calcium 7.7 L (8.4-10.2) mg/dL Magnesium 1.1 L (1.6-2.3) mg/dL Urine Appearance (Clear) Urine Protein (Negative) Urine Glucose (UA) (Negative) Urine Ketones (Negative) Urine Blood (Negative) Ur Leukocyte Esterase (Negative) Urine RBC (0-5) /hpf Urine WBC (0-5) /hpf Urine Bacteria (None) /hpf Hyaline Casts (0-2) /lpf Urine Mucus (None) /hpf 06/27/22 06/27/22 06/27/22 Range/Units 20:50 21:07 23:45 WBC (3.8-10.6) k/uL RBC (3.80-5.40) m/uL Hgb (11.4-16.0) gm/dL Hct (34.0-46.0) % MCHC (31.0-37.0) g/dL RDW (11.5-15.5) % Neutrophils # (1.3-7.7) k/uL Lymphocytes # (1.0-4.8) k/uL PT (9.0-12.0) sec INR (<1.2) ABG pH 7.49 H (7.35-7.45) ABG pCO2 31 L (35-45) mmHg ABG O2 Saturation 98.4 H (94-97) % Carbon Dioxide (22-30) mmol/L Glucose (74-99) mg/dL POC Glucose (mg/dL) 132 H (70-110) mg/dL Calcium (8.4-10.2) mg/dL Magnesium (1.6-2.3) mg/dL Urine Appearance Cloudy H (Clear) Urine Protein 3+ H (Negative) Urine Glucose (UA) Trace H (Negative) Urine Ketones 1+ H (Negative) Urine Blood Large H (Negative) Ur Leukocyte Esterase Small H (Negative) Urine RBC 49 H (0-5) /hpf Urine WBC 49 H (0-5) /hpf Urine Bacteria Occasional H (None) /hpf Hyaline Casts 8 H (0-2) /lpf Urine Mucus Few H (None) /hpf 06/28/22 06/28/22 06/28/22 Range/Units 06:23 06:23 06:41 WBC 12.8 H (3.8-10.6) k/uL RBC 2.87 L (3.80-5.40) m/uL Hgb 8.3 L (11.4-16.0) gm/dL Hct 27.3 L (34.0-46.0) % MCHC 30.3 L (31.0-37.0) g/dL RDW 17.8 H (11.5-15.5) % Neutrophils # 11.9 H (1.3-7.7) k/uL Lymphocytes # 0.1 L (1.0-4.8) k/uL PT (9.0-12.0) sec INR (<1.2) ABG pH (7.35-7.45) ABG pCO2 (35-45) mmHg ABG O2 Saturation (94-97) % Carbon Dioxide (22-30) mmol/L Glucose 169 H (74-99) mg/dL POC Glucose (mg/dL) 153 H (70-110) mg/dL Calcium 7.2 L (8.4-10.2) mg/dL Magnesium (1.6-2.3) mg/dL Urine Appearance (Clear) Urine Protein (Negative) Urine Glucose (UA) (Negative) Urine Ketones (Negative) Urine Blood (Negative) Ur Leukocyte Esterase (Negative) Urine RBC (0-5) /hpf Urine WBC (0-5) /hpf Urine Bacteria (None) /hpf Hyaline Casts (0-2) /lpf Urine Mucus (None) /hpf 06/28/22 Range/Units 11:50 WBC (3.8-10.6) k/uL RBC (3.80-5.40) m/uL Hgb (11.4-16.0) gm/dL Hct (34.0-46.0) % MCHC (31.0-37.0) g/dL RDW (11.5-15.5) % Neutrophils # (1.3-7.7) k/uL Lymphocytes # (1.0-4.8) k/uL PT (9.0-12.0) sec INR (<1.2) ABG pH (7.35-7.45) ABG pCO2 (35-45) mmHg ABG O2 Saturation (94-97) % Carbon Dioxide (22-30) mmol/L Glucose (74-99) mg/dL POC Glucose (mg/dL) 141 H (70-110) mg/dL Calcium (8.4-10.2) mg/dL Magnesium (1.6-2.3) mg/dL Urine Appearance (Clear) Urine Protein (Negative) Urine Glucose (UA) (Negative) Urine Ketones (Negative) Urine Blood (Negative) Ur Leukocyte Esterase (Negative) Urine RBC (0-5) /hpf Urine WBC (0-5) /hpf Urine Bacteria (None) /hpf Hyaline Casts (0-2) /lpf Urine Mucus (None) /hpf Microbiology - Last 24 Hours (Table) 06/27/22 21:20 Blood Culture Gram Stain - Preliminary Blood 06/27/22 20:00 Blood Culture Gram Stain - Preliminary Blood 06/27/22 23:45 Urine Culture - Preliminary Urine,Voided 06/27/22 20:00 Blood Culture - Final Blood 06/27/22 21:20 Blood Culture - Final Blood 06/22/22 22:46 Blood Culture - Preliminary Blood No Growth after 120 hours Assessment and Plan (1) Right groin wound Current Visit: No Status: Acute Code(s): S31.109A - UNSP OPN WND ABD WALL, UNSP Q W/O PENET PERIT CAV, INIT SNOMED Code(s): 809586236 Plan: 1patient with a large wound to the right groin area after extensive surgical debridement for radionecrosis with a culture at that time was positive for ESBL and Jacki for the patient has completed her antibiotic therapy 2local wound care with the wet-to-dry dressing this was discussed with the nursing staff and possible debridement of the left lower abdominal necrotic area. 4 patient with C. diff colitis continue with oral vancomycin 4-patient with a new fever consult for possible UTI versus pneumonia cefepime was added last night and the patient fever has improved, patient will continue while waiting for the culture finalized Time with Patient: Less than 30
[2022-06-28] MEDS: MEROPENEM 1 GM in SODIUM CHLORIDE 0.9% 100 ML IVPB SCH (18:50)
[2022-06-28] MEDS: ATORVASTATIN 40 MG TAB PO SCH (20:53)
[2022-06-28] MEDS: PANTOPRAZOLE 40 MG TABLET PO SCH (20:53)
[2022-06-28 21:47] LABS: Glucose,Whole Blood 142 mg/dL (70-110)
[2022-06-29] MEDS: MEROPENEM 1 GM in SODIUM CHLORIDE 0.9% 100 ML IVPB SCH ×3 (01:39→18:01)
[2022-06-29] MEDS: HYDROcodone/APAP 10-325MG 1 EACH TAB PO PRN ×2 (01:39→21:52)
[2022-06-29 07:07] LABS: Glucose,Whole Blood 111 mg/dL (70-110)
[2022-06-29] MEDS: INSULIN ASPART (NovoLOG) 100 UNIT/ML VIAL SQ SCH ×3 (09:11→18:00)
[2022-06-29] MEDS: carvediloL 6.25 MG TAB PO SCH ×2 (09:11→09:40)
[2022-06-29] MEDS: LEVOTHYROXINE 100 MCG TAB PO SCH (09:11)
[2022-06-29] MEDS: VANCOMYCIN 125 MG CAPSULE PO SCH ×4 (09:12→21:49)
[2022-06-29] MEDS: OXYBUTYNIN 10 MG TAB.ER.24 PO SCH (09:12)
[2022-06-29] MEDS: polyethylene glycoL 3350 17 GM POWD.PACK PO SCH (09:12)
[2022-06-29 10:14] LABS: Glucose,Whole Blood 119 mg/dL (70-110)
[2022-06-29] MEDS ORDERED: LACTATED RINGERS 1,000 ML IV ONE ×3 (10:25→16:13)
[2022-06-29] MEDS ORDERED: ONDANSETRON 4 MG/2 ML VIAL IVP ONE (10:35)
[2022-06-29] MEDS ORDERED: DEXAMETHASONE SOD PHOSPHATE 4 MG/ML 1 ML VIAL IVP ONE (10:36)
[2022-06-29] MEDS: NYSTATIN 100,000 UNIT/GM POWD 15 GM TOPICAL SCH ×2 (10:56→18:11)
[2022-06-29] MEDS: HYDROPHILIC CREAM 180 GM TUBE TOPICAL SCH (10:56)
--- NOTE | 2022-06-29 12:36 | P.HPADDEND ---
H&P Addendum H&P Addendum Date: 06/29/22 CHIEF COMPLAINT: Right groin wound HISTORY OF PRESENT ILLNESS: The patient is a 62 year old female we yesterday was sent to the intensive care unit due to vasovagal event. Patient has been cleared by pulmonary and cardiology. Patient has complicated wound of the right groin including new one of her large pannus as identified by wound care team. She has had no further fevers in the last 24 hours. REVIEW OF ORGAN SYSTEMS: CARDIOVASCULAR: Has hypertensive heart disease. Has hyperlipidemia. Prior cardiac ablation. History of atrial fibrillation. MUSCULOSKELETAL: Has back pain, stiffness or joint arthritis. ENDOCRINE: Has hypothyroidism. Has diabetes type II, insulin dependent. PHYSICAL EXAM: VITALS: Reviewed CONSTITUTIONAL: Well developed and in no acute distress. EYES: Conjuctivae without sclera icterus. Extraocular movements grossly intact. HEAD, EARS, NOSE, THROAT: Moist buccal mucosa. Head is atraumatic, normocephalic. Hears conversational speech. No nasal drainage. RESPIRATORY: Non-labored respirations and equal bilateral excursions. No gross wheezes. CARDIOVASCULAR: Palpable 2+ radial pulses. ABDOMEN: Moderate-sized pannus with skin necrosis of the the dependent portion 8 cm x 5 cm. Complex right grown 25 x 10 cm. MUSCULOSKELETAL: No clubbing cyanosis. SKIN: Warm and well perfused with good skin turgor. Wound extremely large over 25 x 15 cm in size along the right groin. NEUROLOGIC: Cranial nerves II through XII grossly intact. No focal or lateralizing signs. PSYCH: Appropriate affect. Alert and oriented to person, place and time. Displays appropriate insight. CLINCAL LABS: Reviewed. WBC down 14.8 down to 12.8. Hemoglobin stable 8.3. MICRO: Klebsiella of the blood culture ASSESSMENT: 1. Right groin complex wound 2. Panniculitis 3. Morbid obesity due to excess calories, BMI 51.6 4. Uterine cancer status post chemoradiation 5. Diabetes type 2, insulin-dependent 6. Chronic history atrial fibrillation 7. Anemia PLAN: 1. Patient has been stable from her prior VAC without further vasovagal response. Patient is alert and oriented and was to proceed with debridement of the right groin 2. Patient agrees FULL CODE STATUS during procedure
[2022-06-29 12:49] VITALS: BMI 56.7
[2022-06-29] MEDS ORDERED: PHENYLEPHRINE-0.9% NACL SYG 1,000 MCG/10 ML SYRINGE ONE (13:21)
[2022-06-29] MEDS ORDERED: SUCCINYLCHOLINE CHLORIDE 200 MG/10 ML VIAL IV ONE (13:21)
[2022-06-29] MEDS ORDERED: KETAMINE 10 MG/ML 20 ML VIAL ONE (13:21)
[2022-06-29] MEDS ORDERED: PROPOFOL 10 MG/ML 20 ML VIAL IV ONE (13:21)
[2022-06-29] MEDS ORDERED: LIDOCAINE 2% INJ 20 MG/ML (2 ML VIAL) ONE (13:21)
[2022-06-29] MEDS ORDERED: fentaNYL (PF) 50 MCG/ML 2 ML AMP ONE (13:21)
[2022-06-29] MEDS ORDERED: LABETALOL 5 MG/ML VIAL MDV ONE (13:21)
[2022-06-29] MEDS ORDERED: HYDROmorphone 0.5 MG/0.5 ML SYRINGE IVP ONE ×4 (15:44→16:30)
--- NOTE | 2022-06-29 15:45 | P.OP ---
Date of Procedure: 06/29/22 Description of Procedure: SURGEON: CHIKI MUNOZ MD MACHINE TOOL BUILDER: None. PREOPERATIVE DIAGNOSES: 1. Complex right groin wound 2. History of uterine/ovarian cancer and pelvic radiation 3. Morbid obesity due to excess calories, BMI 48.9 4. Panniculitis, over 50 pounds 5. Recent cerebrovascular accident 6. Atrial fibrillation with rapid ventricular response 7. Hypothyroidism 8. Insulin-dependent diabetes type 2 with retinopathy 9. Gastroesophageal reflux disease 10. Hyperlipidemia 11. Chronic anticoagulation 12. Necrosis of the pannus POSTOPERATIVE DIAGNOSES: 1. Necrotizing/gangrenous right groin wound/pubis, 42 x 10 cm 2. History of uterine cancer and radiation 3. Morbid obesity due to excess calories, BMI 48.9 4. Panniculitis, over 50 pounds 5. Recent cerebrovascular accident 6. Atrial fibrillation with rapid ventricular response 7. Hypothyroidism 8. Insulin-dependent diabetes type 2 with retinopathy 9. Gastroesophageal reflux disease 10. Hyperlipidemia 11. Chronic anticoagulation 12. Necrosis of the pannus, 27 x 12 cm PROCEDURES PERFORMED: 1. Sharp excisional debridement using #10 blade of left pannus, 27 x 12 cm subcutaneous tissue 2. Mechanical debridement using Pulsavac lavage 3 L normal saline solution with high pressure water jet, 42 x 10 cm, right groin wound 3. Mechanical debridement using Pulsavac lavage normal saline solution with high pressure water jet, 27 x 12 cm, left pannus 4. Application of negative wound VAC therapy right groin, 42 x 10 cm 5. Application of negative wound VAC therapy left pannus, 27 x 12 cm Anesthesia: GETA Estimated Blood Loss (ml): 100 Pathology: Excisional debridment wound Condition: stable COMPLICATIONS: None. Operative Findings: 1. Dark superficial eschar necrotizing fat of the pannus, 27 x 12 cm sharply debrided using #10 blade 2. Yamilet right groin wound of the fascia and subcutaneous tissue, 42 x 10 cm 3. Y adapter placed for wall suction device INDICATIONS: The patient is a 61-year-old female who presented complex right groin and new pannus wound. Benefits and risks of bleeding, infection, need for additional surgery, cosmetic deformity was described. Informed consent was obtained. DESCRIPTION OR PROCEDURE: Patient was brought into the operating room. After general induction, she was positioned in supine position. Due to her 50 pound pannus, the pannus was retracted to the left of the abdomen. The wound was prepped and draped with chlorhexidine soap. Timeout protocol was confirmed with the surgical team regarding the patient's name, procedure to be performed including preoperative medications for which she is on scheduled vancomycin. DVT prophylaxis was confirmed with heparin and sequential compression devices. After extensive wide draping, attention was brought to the left pannus which was suspended with the assistance. Sharp excisional debridement of the pannus using #10 blade was performed to the subcutaneous tissue with healthy bleeding tissue. 27 x 12 cm defect was identified into the subtenon's tissue. The wound was copiously irrigated using Pulsavac normal saline and mechanically debrided with a sponge containing Dakin solution. Bleeding was controlled using electro-Bovie cautery. Attention was brought to the right groin where healthy granulation tissue of the fascia and skin was identified. The wound had contracted from 48 x 12 cm to 42 x 10 cm. The wound was debrided using water jet Pulsavac normal saline. Both wounds, 3 L normal saline solution was used for mechanical debridement using Pulsavac. The right groin was prepared for large wound VAC placement after cutting the sponge in half. The sponge was fashioned to the defect of the groin. Multiple Tegaderms were placed. A suction adapter was placed along the central portion of the dressing. The suction tubing was placed into wall suction. Attention was now brought to the left pannus where a large black sponge was placed along the depth of the wound. Tegaderm was placed. A suction disc was placed along the midportion of the wound dressing. A Y connector was attached for both suction devices in place to palpable suction. The skin was cleansed using dilute hydrogen peroxide. At the end of the procedure, needle, sponge, and instrument count was verified correct by surgical forceps fabricator.
[2022-06-29] MEDS ORDERED: ACETAMINOPHEN IV (For NPO) 1,000 MG in EMPTY BAG 1 BAG IVPB ONE (15:47)
[2022-06-29 16:55] LABS: Glucose,Whole Blood 189 mg/dL (70-110)
[2022-06-29] MEDS: LACTATED RINGERS 1,000 ML IV SCH (21:48)
[2022-06-29] MEDS: ATORVASTATIN 40 MG TAB PO SCH (21:49)
[2022-06-29] MEDS: PANTOPRAZOLE 40 MG TABLET PO SCH (21:49)
[2022-06-30] MEDS: MEROPENEM 1 GM in SODIUM CHLORIDE 0.9% 100 ML IVPB SCH ×3 (02:08→17:34)
[2022-06-30 08:03] LABS: Glucose,Whole Blood 122 mg/dL (70-110)
[2022-06-30] MEDS: INSULIN ASPART (NovoLOG) 100 UNIT/ML VIAL SQ SCH ×3 (08:18→16:43)
[2022-06-30] MEDS: HYDROPHILIC CREAM 180 GM TUBE TOPICAL SCH (08:20)
[2022-06-30] MEDS: polyethylene glycoL 3350 17 GM POWD.PACK PO SCH (08:32)
[2022-06-30] MEDS: carvediloL 6.25 MG TAB PO SCH ×2 (08:35→15:30)
[2022-06-30] MEDS: LEVOTHYROXINE 100 MCG TAB PO SCH (08:35)
[2022-06-30] MEDS: NYSTATIN 100,000 UNIT/GM POWD 15 GM TOPICAL SCH ×2 (08:35→15:30)
[2022-06-30] MEDS: OXYBUTYNIN 10 MG TAB.ER.24 PO SCH (08:36)
[2022-06-30] MEDS: VANCOMYCIN 125 MG CAPSULE PO SCH ×3 (09:03→17:34)
--- NOTE | 2022-06-30 09:11 | P.PN ---
Progress Note - Text Progress Note Date: 06/30/22 Patient Judit stable. She is in her bed eating breakfast. She is morbidly obese. Her BMI is 57. Patient's chronic groin wound is stable. She'll continue local wound care.
[2022-06-30 11:44] LABS: Glucose,Whole Blood 137 mg/dL (70-110)
[2022-06-30 11:55] LABS: Basophils # (A) 0.01 X 10*3/uL (0.00-0.10); Basophils % (A) 0.1 %; Eosinophils # (A) 0.01 X 10*3/uL (0.04-0.35); Eosinophils % (A) 0.1 %; HCT 28.5 % (37.2-46.3); HGB 8.4 g/dL (12.0-15.0); Immature Grans, Automated 1.3 %; Lymphocytes % (A) 3.6 %; MCH 28.3 pg (27.0-32.0); MCHC 29.5 g/dL (32.0-37.0); Mean Platelet Volume 9.9 fL (9.5-12.2); Monocytes # (A) 0.52 X 10*3/uL (0.20-1.00); Monocytes % (A) 6.3 %; NRBC Per 100 WBC 0 /100 WBCS (0.0-0.0); Neutrophils # (A) 7.28 X 10*3/uL (1.80-7.70); Neutrophils % (A) 88.6 %; Platelet Count 287 X 10*3/uL (140-440); RBC 2.97 X 10*6/uL (4.10-5.20); RDW 18.7 % (11.5-14.5); WBC 8.23 X 10*3/uL (4.50-10.00)
[2022-06-30 12:35] LABS: African American GFR (CKD) 79.1 (60.0-200.0); Albumin 2.1 g/dL (3.8-4.9); Albumin/Globulin Ratio 0.75 (1.60-3.17); BUN/Creat Ratio 18.04 Ratio (12.00-20.00); Blood Urea Nitrogen 16.2 mg/dL (9.0-27.0); Carbon Dioxide 21.5 mmol/L (20.0-27.5); Globulin 2.8 g/dL (1.6-3.3); Non-African American GFR(CKD) 68.2 (60.0-200.0); Potassium 4.5 mmol/L (3.5-5.5); Total Bilirubin 0.3 mg/dL (0.30-1.20); Total Protein 4.9 g/dL (6.2-8.2)
[2022-06-30] MEDS: LACTATED RINGERS 1,000 ML IV SCH (15:29)
[2022-06-30] MEDS: HYDROcodone/APAP 10-325MG 1 EACH TAB PO PRN ×2 (16:08→19:56)
[2022-06-30 16:34] LABS: Glucose,Whole Blood 134 mg/dL (70-110)
--- NOTE | 2022-06-30 17:53 | P.PN ---
Subjective HISTORY OF PRESENTING ILLNESS Patient is a pleasant 62-year-old female with history of Recent CVA on 05/19/2022, paroxysmal atrial fibrillation, uterine cancer undergoing chemotherapy, apparent CAD with prior "blockage with its own bypasses "likely consistent with OFFICE DIRECTOR from 2019, hypertension, hyperlipidemia, obesity, diabetes mellitus type 2. Patient unfortunately has been having issues with perineal wounds from prior radiation for cancer requiring debridement and infection and previously on antibiotics. She also has been having bleeding from the wounds. She had prior hospitalization approximate month ago. She was placed on antibiotics and unfortunately developed C. diff colitis. She has been on oral vancomycin. Cardiology was consulted secondary to patient having a loss of consciousness episode yesterday which occurred when she was being clean. Patient does not recall the entire event however per nursing apparently had been been washed and maneuvered and then had brief loss of consciousness reviewed with return a few minutes later, not requiring any CPR. Telemetry reveals atrophic fibrillation with controlled ventricular rates. She does admit to mild amount of chest discomfort. 06/30 Patient seen and examined. Patient underwent surgery yesterday and found to have necrotizing gangrenous right groin wound and underwent debridement and placement of a wound VAC. She admits to having some discomfort in the groin are a. Denies any chest pain or pressure. No shortness breath. Hemoglobin today 8.4, creatinine 0.9. PHYSICAL EXAMINATION Vital signs reviewed. CONSTITUTIONAL: No apparent distress, obese, ill appearing HEENT: Head is normocephalic. Pupils are equal, round. Sclerae anicteric. Mucous membranes of the mouth are moist. No JVD. CHEST EXAMINATION: Lungs are clear to auscultation. No chest wall tenderness is noted on palpation or with deep breathing. HEART EXAMINATION: Irregular, tachycardic rate and rhythm. S1, S2 heard. No murmurs, gallops or rub. ABDOMEN: Soft, nontender. Positive bowel sounds. EXTREMITIES: 2+ peripheral pulses, no lower extremity edema and no calf tenderness. SKIN: Right groin necrotic wound, multiple wounds in perineal area NEUROLOGIC EXAMINATION: Patient is awake, alert and oriented x3. ASSESSMENT Multiple necrotizing wounds in groin and perineal area, with bleeding and requiring debridement, wound vac placement 06/29 Paroxysmal atrial fibrillation Mild chest discomfort Loss of consciousness, appears likely vasovagal related. No significant tachycardia or bradycardia arrhythmia on telemetry Recent Acute CVA in 05/19/2022 Reported history of CAD with likely OFFICE DIRECTOR Hypertension Diabetes mellitus type 2 Uterine cancer undergoing chemotherapy with prior significant vaginal bleeding Obesity PLAN Patient with loss of consciousness appears most likely vagal related without any significant tachycardia or bradycardia arrhythmia. Continue with current medical regimen. Anticoagulation on hold with anemia and need for surgical debridement Objective - Vital Signs Vital signs: Vital Signs Temp 97.4 F L 06/30/22 14:00 Pulse 69 06/30/22 14:00 Resp 20 06/30/22 14:00 BP 123/67 06/30/22 14:00 Pulse Ox 97 06/30/22 14:00 FiO2 Intake & Output 06/29/22 06/30/22 06/30/22 18:59 06:59 18:59 Intake Total 1200 1080 Output Total 450 700 Balance 750 380 Weight 159.6 kg Intake: IV 1200 Oral 1080 Output: Urine 350 700 Estimated Blood Loss 100 Other: Voiding Method Indwelling Catheter Indwelling Catheter - Labs CBC & Chem 7: 06/30/22 06:19 06/30/22 06:19 Labs: Abnormal Lab Results - Last 24 Hours (Table) 06/30/22 06/30/22 06/30/22 Range/Units 06:19 06:19 08:02 RBC 2.97 L (4.10-5.20) X 10*6/uL Hgb 8.4 L (12.0-15.0) g/dL Hct 28.5 L (37.2-46.3) % MCHC 29.5 L (32.0-37.0) g/dL RDW 18.7 H (11.5-14.5) % Immature Gran # 0.11 H (0.00-0.04) X 10*3/uL Lymphocytes # 0.30 L (0.90-5.00) X 10*3/uL Eosinophils # 0.01 L (0.04-0.35) X 10*3/uL Glucose 113 H (70-110) mg/dL POC Glucose (mg/dL) 122 H (70-110) mg/dL Calcium 8.0 L (8.7-10.3) mg/dL Alkaline Phosphatase 143 H (41-126) U/L Total Protein 4.9 L (6.2-8.2) g/dL Albumin 2.1 L (3.8-4.9) g/dL Albumin/Globulin Ratio 0.75 L (1.60-3.17) g/dL 06/30/22 06/30/22 Range/Units 11:43 16:33 RBC (4.10-5.20) X 10*6/uL Hgb (12.0-15.0) g/dL Hct (37.2-46.3) % MCHC (32.0-37.0) g/dL RDW (11.5-14.5) % Immature Gran # (0.00-0.04) X 10*3/uL Lymphocytes # (0.90-5.00) X 10*3/uL Eosinophils # (0.04-0.35) X 10*3/uL Glucose (70-110) mg/dL POC Glucose (mg/dL) 137 H 134 H (70-110) mg/dL Calcium (8.7-10.3) mg/dL Alkaline Phosphatase (41-126) U/L Total Protein (6.2-8.2) g/dL Albumin (3.8-4.9) g/dL Albumin/Globulin Ratio (1.60-3.17) g/dL Microbiology - Last 24 Hours (Table) 06/27/22 21:20 Blood Culture Gram Stain - Final Blood Blood Culture - Final Klebsiella pneumoniae 06/27/22 20:00 Blood Culture Gram Stain - Final Blood Blood Culture - Final Klebsiella pneumoniae
--- NOTE | 2022-06-30 19:38 | P.PN ---
Subjective Progress Note Date: 06/29/22 62-year-old patient, follows with Dr. Smooth Bob. Chronic stable medical conditions include diabetes, GERD, essential hypertension, hypothyroid. Chronic low back pain. Ovarian cancer treatment for chemo and radiation treatment. September 2021 was having significant vaginal bleeding. 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 No metastatic disease. She was not felt to be surgical candidate and was to receive 3 cycles of carboplatin/Taxol followed by radiation and 3 additional cycles of the above. She completed radiation on 03/14/2022. Started back on the carbotaxol April 03 and was status post cycle 6 day 1 on May 16. May 2022: Stroke found in the left coronary radiata on the posterior aspect of left frontal lobe. Was placed on eliquis for atrial fibrillation. On recent admission patient to have a significant wound on the right groin and abdominal pannus. Was seen by Dr. mcdermott from [place] and Dr. Kasper from general surgery. May 31 underwent wound debridement by Dr. Kasper. Cultures were positive for ESBL klebsiella. Covered with vancomycin and meropenem. June 01 patient was transferred to [facility] for further management of deep wounds. Patient now presents here from [facility]. Patient become more lethargic. Difficult to arouse. Hypoxic on room air 82%. Placed on 5 L of oxygen. Patient was vomiting up on arrival of the EMS. Patient states that she is not been eating much. Kidney function is much worse since he has recently. Not eating drinking enough. Wounds are present. Patient rather lethargic during history taking. Tired easily. Patient has been nonambulatory since discharge Objective - Vital Signs Vital signs: Vital Signs Temp 97.3 F L 06/29/22 10:25 Pulse 80 06/29/22 10:25 Resp 18 06/29/22 10:25 BP 125/59 06/29/22 10:25 Pulse Ox 96 06/29/22 10:25 FiO2 Intake & Output 06/28/22 06/29/22 06/29/22 18:59 06:59 18:59 Intake Total 1480 100 Output Total 245 200 Balance 1235 -100 Weight 159.6 kg Intake: IV 280 100 Cefepime 2 gm In Sodium 100 Chloride 0.9% 100 ml @ 25 mls/hr IVPB Q8HR [facility] Rx# :[id number] Lactated Ringers 1,000 ml 180 @ 20 mls/hr IV .Q24H [facility] Rx#:[id number] Oral 1200 Output: Urine 245 200 Other: Voiding Method Indwelling Catheter Indwelling Catheter - Exam GENERAL: Laying in bed, awake, tired EYES: Pupils equal. Conjunctiva normal. HEENT: External appearance of nose and ears normal, oral cavity dry mucous membranes NECK: JVD unable to assess; masses not palpable. HEART: Heart sounds irregular; slight edema. LUNGS: Respiratory rate normal; distant breath sound. ABDOMEN: Soft, nontender, liver spleen not palpable, no masses palpable. Perianal wounds C wound care notes. PSYCH: Answering questions appropriately MUSCULOSKELETAL:No Clubbing/cyanosis;muscles-grossly intact, evidence of OA DERMATOLOGICAL: Deep wound in the abdominal pannus and in the right groin. See nursing notes for pictures - Labs CBC & Chem 7: 06/30/22 06:19 06/30/22 06:19 Labs: Abnormal Lab Results - Last 24 Hours (Table) 06/28/22 06/28/22 06/29/22 Range/Units 17:01 21:46 06:56 POC Glucose (mg/dL) 121 H 142 H 111 H (70-110) mg/dL 06/29/22 Range/Units 10:13 POC Glucose (mg/dL) 119 H (70-110) mg/dL Microbiology - Last 24 Hours (Table) 06/27/22 21:20 Blood Culture Gram Stain - Preliminary Blood Blood Culture - Preliminary Gram Neg Bacilli 06/27/22 20:00 Blood Culture Gram Stain - Preliminary Blood Blood Culture - Preliminary Klebsiella pneumoniae 06/22/22 22:46 Blood Culture - Final Blood No Growth after 144 hours 06/27/22 21:20 Blood Culture - Final Blood 06/27/22 20:00 Blood Culture - Final Blood 06/27/22 23:45 Urine Culture - Final Urine,Voided Assessment and Plan Assessment: -Acute metabolic encephalopathy from acute kidney injury, upon presentation: Improved -Sepsis with positive blood cultures gram-positive cocci: New diagnosis Being followed by ID. -Aspiration pneumonia: Clinically better On IV cefepime -Acute kidney injury combination of prerenal and ATN.: Improved Stop metformin. IV fluids -Acute C. diff colitis from recent antibiotics: Better Oral vancomycin started 125 mg by mouth 4 times a day. -Chronic Large wound on the abdominal pannus and right groin: Not improving Plan from wound VAC on the right groin wound. Debridement of both the wounds tomorrow per Dr. Kasper -Acute stroke in the left johnston radiata on the posterior aspect of the left frontal lobe. suspected to be embolic from underlying paroxysmal atrial fibrillation, on 05/18/2022 Eliquis held for debridement. No aspirin. -Persistent atrial fibrillation: Rate controlled eliquis. Coreg 6.25 mg twice a day.. [Cardizem CD 180 mg a day. And digitoxin to be held] -Chronic dysphagia from underlying stroke : Chopped diet -Diabetes mellitus type 2 on oral hypoglycemic Hold metformin. Follow Accu-Cheks -Morbid obesity BMI 51.6 Weight loss measures -GERD Prilosec 20 mg -Essential hypertension, currently blood pressure running low Coreg 6.25 mg twice a day, hold Cardizem -Chronic urinary stress incontinence Ditropan XL 10 mg a day -Hypothyroid Synthroid 200 g a day -Acute on chronic medical debility multifactorial -DO NOT RESUSCITATE
--- NOTE | 2022-06-30 19:53 | P.PN ---
Subjective Progress Note Date: 06/30/22 62-year-old patient, follows with Dr. Smooth Bob. Chronic stable medical conditions include diabetes, GERD, essential hypertension, hypothyroid. Chronic low back pain. Ovarian cancer treatment for chemo and radiation treatment. September 2021 was having significant vaginal bleeding. 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 No metastatic disease. She was not felt to be surgical candidate and was to receive 3 cycles of carboplatin/Taxol followed by radiation and 3 additional cycles of the above. She completed radiation on 03/14/2022. Started back on the carbotaxol April 03 and was status post cycle 6 day 1 on May 16. May 2022: Stroke found in the left coronary radiata on the posterior aspect of left frontal lobe. Was placed on eliquis for atrial fibrillation. On recent admission patient to have a significant wound on the right groin and abdominal pannus. Was seen by Dr. mcdermott from [place] and Dr. Kasper from general surgery. May 31 underwent wound debridement by Dr. Kasper. Cultures were positive for ESBL klebsiella. Covered with vancomycin and meropenem. June 01 patient was transferred to [facility] for further management of deep wounds. Patient now presents here from [facility]. Patient become more lethargic. Difficult to arouse. Hypoxic on room air 82%. Placed on 5 L of oxygen. Patient was vomiting up on arrival of the EMS. Patient states that she is not been eating much. Kidney function is much worse since he has recently. Not eating drinking enough. Wounds are present. Patient rather lethargic during history taking. Tired easily. Patient has been nonambulatory since discharge 06/30/2022 Patient is seen and evaluated and discussed with nursing staff; no specific complaints identified Patient is status post sharp excisional debridement of necrotizing/gangrenous right groin wound POD #1 Patient remains on IV antibiotics; we will continue to monitor CBC, CRP and pro- calcitonin Cardiology following for paroxysmal atrial fibrillation; patient remains rate controlled; anticoagulation on hold for surgical procedures Objective - Vital Signs Vital signs: Vital Signs Temp 97.5 F L 06/30/22 07:58 Pulse 76 06/30/22 07:58 Resp 18 06/30/22 07:58 BP 115/64 08/20/22 07:58 Pulse Ox 97 06/30/22 07:58 FiO2 Intake & Output 06/29/22 06/30/22 06/30/22 18:59 06:59 18:59 Intake Total 1200 Output Total 450 Balance 750 Weight 159.6 kg Intake: IV 1200 Output: Urine 350 Estimated Blood Loss 100 Other: Voiding Method Indwelling Catheter Indwelling Catheter - Exam GENERAL: Laying in bed, awake, tired EYES: Pupils equal. Conjunctiva normal. HEENT: External appearance of nose and ears normal, oral cavity dry mucous membr anes NECK: JVD unable to assess; masses not palpable. HEART: Heart sounds irregular; slight edema. LUNGS: Respiratory rate normal; distant breath sound. ABDOMEN: Soft, nontender, liver spleen not palpable, no masses palpable. Perianal wounds C wound care notes. PSYCH: Answering questions appropriately MUSCULOSKELETAL:No Clubbing/cyanosis;muscles-grossly intact, evidence of OA DERMATOLOGICAL: Deep wound in the abdominal pannus and in the right groin. See nursing notes for pictures - Labs CBC & Chem 7: 06/30/22 06:19 06/30/22 06:19 Labs: Abnormal Lab Results - Last 24 Hours (Table) 06/29/22 06/30/22 06/30/22 Range/Units 16:53 06:19 08:02 RBC 2.97 L (4.10-5.20) X 10*6/uL Hgb 8.4 L (12.0-15.0) g/dL Hct 28.5 L (37.2-46.3) % MCHC 29.5 L (32.0-37.0) g/dL RDW 18.7 H (11.5-14.5) % Immature Gran # 0.11 H (0.00-0.04) X 10*3/uL Lymphocytes # 0.30 L (0.90-5.00) X 10*3/uL Eosinophils # 0.01 L (0.04-0.35) X 10*3/uL POC Glucose (mg/dL) 189 H 122 H (70-110) mg/dL 06/30/22 Range/Units 11:43 RBC (4.10-5.20) X 10*6/uL Hgb (12.0-15.0) g/dL Hct (37.2-46.3) % MCHC (32.0-37.0) g/dL RDW (11.5-14.5) % Immature Gran # (0.00-0.04) X 10*3/uL Lymphocytes # (0.90-5.00) X 10*3/uL Eosinophils # (0.04-0.35) X 10*3/uL POC Glucose (mg/dL) 137 H (70-110) mg/dL Microbiology - Last 24 Hours (Table) 06/27/22 21:20 Blood Culture Gram Stain - Preliminary Blood Blood Culture - Preliminary Gram Neg Bacilli 06/27/22 20:00 Blood Culture Gram Stain - Preliminary Blood Blood Culture - Preliminary Klebsiella pneumoniae Assessment and Plan Assessment: -Acute metabolic encephalopathy from acute kidney injury, upon presentation: Improved -Sepsis with positive blood cultures gram-positive cocci: New diagnosis Being followed by ID. -Aspiration pneumonia: Clinically better On IV cefepime -Acute kidney injury combination of prerenal and ATN.: Improved Stop metformin. IV fluids -Acute C. diff colitis from recent antibiotics: Better Oral vancomycin started 125 mg by mouth 4 times a day. -Chronic Large wound on the abdominal pannus and right groin: Not improving Plan from wound VAC on the right groin wound. Debridement of both the wounds tomorrow per Dr. Kasper -Acute stroke in the left [place]ohnston radiata on the posterior aspect of the left frontal lobe. suspected to be embolic from underlying paroxysmal atrial fibrillation, on 05/18/2022 Eliquis held for debridement. No aspirin. -Persistent atrial fibrillation: Rate controlled eliquis. Coreg 6.25 mg twice a day.. [Cardizem CD 180 mg a day. And digi toxin to be held] -Chronic dysphagia from underlying stroke : Chopped diet -Diabetes mellitus type 2 on oral hypoglycemic Hold metformin. Follow Accu-Cheks -Morbid obesity BMI 51.6 Weight loss measures -GERD Prilosec 20 mg -Essential hypertension, currently blood pressure running low Coreg 6.25 mg twice a day, hold Cardizem -Chronic urinary stress incontinence Ditropan XL 10 mg a day -Hypothyroid Synthroid 200 g a day -Acute on chronic medical debility multifactorial -DO NOT RESUSCITATE
[2022-06-30] MEDS: ATORVASTATIN 40 MG TAB PO SCH (19:56)
[2022-06-30] MEDS: PANTOPRAZOLE 40 MG TABLET PO SCH (19:56)
[2022-06-30 19:57] LABS: Glucose,Whole Blood 156 mg/dL (70-110)
--- NOTE | 2022-06-30 22:39 | P.PN ---
Subjective Progress Note Date: 06/29/22 Principal diagnosis: R groin wound and diarrhea Patient is a 62-year-old female with a past medical history significant for uterine cancer status post chemoradiation with significant skin necrosis to the right groin area status post extensive surgery department culture with ESBL E. coli for the patient apparently has come having right therapy subsequently presenting back to the hospital for weakness mental status change and dehydration and apparently the patient also have a diarrhea and stool for significantly positive.Patient is scheduled for surgical debridement of the left lower abdominal wall necrotic wound this afternoon. On today's evaluation that is 06/29/2022, the patient denies having any fever or chills, patient is breathing comfortably on nasal cannula oxygen denies any chest pain shortness of breath or cough abdominal pain is currently controlled and denies having any worsening diarrhea Objective - Vital Signs Vital signs: Vital Signs Temp 97.3 F L 06/29/22 10:25 Pulse 80 06/29/22 10:25 Resp 18 06/29/22 10:25 BP 125/59 06/29/22 10:25 Pulse Ox 96 06/29/22 10:25 FiO2 Intake & Output 06/28/22 06/29/22 06/29/22 18:59 06:59 18:59 Intake Total 1480 Output Total 245 200 Balance 1235 -200 Intake: IV 280 Cefepime 2 gm In Sodium 100 Chloride 0.9% 100 ml @ 25 mls/hr IVPB Q8HR FANNY Rx# :[id number] Lactated Ringers 1,000 ml 180 @ 20 mls/hr IV .Q24H FANNY Rx#:[id number] Oral 1200 Output: Urine 245 200 Other: Voiding Method Indwelling Catheter Indwelling Catheter - Exam GENERAL DESCRIPTION: Middle-aged female lying in bed, no distress. No tachypnea or accessory muscle of respiration use. LUNGS: Unlabored breathing. Clear to auscultation anteriorly. No wheeze or crackle. HEART: S1, S2, regular rate and rhythm. No loud murmur ABDOMEN: Soft, no tenderness , did have extensive wound to the right groin covered with the dressing no drainage of the dressing EXTREMITIES: Diffuse swelling bilateral lower extremity. - Labs CBC & Chem 7: 06/30/22 06:19 06/30/22 06:19 Labs: Abnormal Lab Results - Last 24 Hours (Table) 06/28/22 06/28/2222 Range/Units 17:01 21:46 06:56 POC Glucose (mg/dL) 121 H 142 H 111 H (70-110) mg/dL 06/29/22 Range/Units 10:13 POC Glucose (mg/dL) 119 H (70-110) mg/dL Microbiology - Last 24 Hours (Table) 06/22/22 22:46 Blood Culture - Final Blood No Growth after 144 hours 06/27/22 20:00 Blood Culture Gram Stain - Preliminary Blood Blood Culture - Preliminary Klebsiella pneumoniae 06/27/22 21:20 Blood Culture Gram Stain - Preliminary Blood 06/27/22 21:20 Blood Culture - Final Blood 06/27/22 20:00 Blood Culture - Final Blood 06/27/22 23:45 Urine Culture - Final Urine,Voided Assessment and Plan (1) Right groin wound Current Visit: No Status: Acute Code(s): S31.109A - UNSP OPN WND ABD WALL, UNSP Q W/O PENET PERIT CAV, INIT SNOMED Code(s): 493767552 Plan: 1patient with a large wound to the right groin area after extensive surgical debridement for radionecrosis with a culture at that time was positive for ESBL and Jacki for the patient has completed her antibiotic therapy 2local wound care per the wound care team. 3 patient with C. diff colitis continue with oral vancomycin 4- patient with a fever and now with evidence of Klebsiella bacteremia likely ESBL cefepime discontinued and meropenem has been added blood cultures will be repeated document clearance of bacteremia Time with Patient: Less than 30
--- NOTE | 2022-06-30 22:42 | P.PN ---
Subjective Progress Note Date: 06/30/22 Principal diagnosis: R groin wound and diarrhea Patient is a 62-year-old female with a past medical history significant for uterine cancer status post chemoradiation with significant skin necrosis to the right groin area status post extensive surgery department culture with ESBL E. coli for the patient apparently has come having right therapy subsequently presenting back to the hospital for weakness mental status change and dehydration and apparently the patient also have a diarrhea and stool for significantly positive.Patient is s/p surgical debridement of the left lower abdominal wall necrotic wound on 06/29/2022. On today's evaluation that is 06/30/2022, the patient remains to be afebrile, patient is breathing comfortably on nasal cannula oxygen, the patient denies any chest pain shortness of breath or cough abdominal pain is currently controlled and denies having any worsening diarrhea Objective - Vital Signs Vital signs: Vital Signs Temp 97.5 F L 06/30/22 07:58 Pulse 76 06/30/22 07:58 Resp 18 06/30/22 07:58 BP 115/64 06/30/22 07:58 Pulse Ox 97 06/30/22 07:58 FiO2 Intake & Output 06/29/22 06/30/22 06/30/22 18:59 06:59 18:59 Intake Total 1200 Output Total 450 Balance 750 Weight 159.6 kg Intake: IV 1200 Output: Urine 350 Estimated Blood Loss 100 Other: Voiding Method Indwelling Catheter Indwelling Catheter - Exam GENERAL DESCRIPTION: Middle-aged female lying in bed, no distress. No tachypnea or accessory muscle of respiration use. LUNGS: Unlabored breathing. Clear to auscultation anteriorly. No wheeze or crackle. HEART: S1, S2, regular rate and rhythm. No loud murmur ABDOMEN: Soft, no tenderness , did have extensive wound to the Bilateral groin covered with wound vac EXTREMITIES: Diffuse swelling bilateral lower extremity. - Labs CBC & Chem 7: 06/30/22 06:19 06/30/22 06:19 Labs: Abnormal Lab Results - Last 24 Hours (Table) 06/29/22 06/30/22 06/30/22 Range/Units 16:53 06:19 06:19 RBC 2.97 L (4.10-5.20) X 10*6/uL Hgb 8.4 L (12.0-15.0) g/dL Hct 28.5 L (37.2-46.3) % MCHC 29.5 L (32.0-37.0) g/dL RDW 18.7 H (11.5-14.5) % Immature Gran # 0.11 H (0.00-0.04) X 10*3/uL Lymphocytes # 0.30 L (0.90-5.00) X 10*3/uL Eosinophils # 0.01 L (0.04-0.35) X 10*3/uL Glucose 113 H (70-110) mg/dL POC Glucose (mg/dL) 189 H (70-110) mg/dL Calcium 8.0 L (8.7-10.3) mg/dL Alkaline Phosphatase 143 H (41-126) U/L Total Protein 4.9 L (6.2-8.2) g/dL Albumin 2.1 L (3.8-4.9) g/dL Albumin/Globulin Ratio 0.75 L (1.60-3.17) g/dL 06/30/22 06/30/22 Range/Units 08:02 11:43 RBC (4.10-5.20) X 10*6/uL Hgb (12.0-15.0) g/dL Hct (37.2-46.3) % MCHC (32.0-37.0) g/dL RDW (11.5-14.5) % Immature Gran # (0.00-0.04) X 10*3/uL Lymphocytes # (0.90-5.00) X 10*3/uL Eosinophils # (0.04-0.35) X 10*3/uL Glucose (70-110) mg/dL POC Glucose (mg/dL) 122 H 137 H (70-110) mg/dL Calcium (8.7-10.3) mg/dL Alkaline Phosphatase (41-126) U/L Total Protein (6.2-8.2) g/dL Albumin (3.8-4.9) g/dL Albumin/Globulin Ratio (1.60-3.17) g/dL Microbiology - Last 24 Hours (Table) 06/27/22 21:20 Blood Culture Gram Stain - Preliminary Blood Blood Culture - Preliminary Gram Neg Bacilli 06/27/22 20:00 Blood Culture Gram Stain - Preliminary Blood Blood Culture - Preliminary Klebsiella pneumoniae Assessment and Plan (1) Right groin wound Current Visit: No Status: Acute Code(s): S31.109A - UNSP OPN WND ABD WALL, UNSP Q W/O PENET PERIT CAV, INIT SNOMED Code(s): 840274518 Plan: 1-patient with a C. difficile colitis in this patient clinically responding to the oral vancomycin to continue encourage yogurt intake 2-patient with a fever and now with evidence of ESBL Klebsiella bacteremia source questionably PICC which will be discontinued today they will be sent for the culture blood culture has been repeated continue with the meropenem 3-bilateral groin wound postdebridement continue local wound care with wound VAC Time with Patient: Less than 30
[2022-07-01] MEDS: MEROPENEM 1 GM in SODIUM CHLORIDE 0.9% 100 ML IVPB SCH ×3 (00:33→17:00)
[2022-07-01] MEDS: VANCOMYCIN 125 MG CAPSULE PO SCH ×5 (00:33→20:00)
[2022-07-01] MEDS: HYDROcodone/APAP 10-325MG 1 EACH TAB PO PRN ×4 (02:48→20:00)
[2022-07-01 06:48] LABS: Glucose,Whole Blood 98 mg/dL (70-110)
[2022-07-01] MEDS: INSULIN ASPART (NovoLOG) 100 UNIT/ML VIAL SQ SCH ×3 (08:13→16:51)
[2022-07-01] MEDS: HYDROPHILIC CREAM 180 GM TUBE TOPICAL SCH (08:13)
[2022-07-01] MEDS: polyethylene glycoL 3350 17 GM POWD.PACK PO SCH (08:16)
[2022-07-01] MEDS: OXYBUTYNIN 10 MG TAB.ER.24 PO SCH (08:17)
[2022-07-01] MEDS: carvediloL 6.25 MG TAB PO SCH ×2 (08:17→15:38)
[2022-07-01] MEDS: LEVOTHYROXINE 100 MCG TAB PO SCH (08:17)
[2022-07-01] MEDS: NYSTATIN 100,000 UNIT/GM POWD 15 GM TOPICAL SCH ×2 (08:18→15:36)
--- NOTE | 2022-07-01 10:52 | P.PN ---
Progress Note - Text Progress Note Date: 07/01/22 Patient's resting comfortably in bed. She has no new complaints. Groin wound is stable. She'll continue local wound care.
[2022-07-01 11:51] LABS: Glucose,Whole Blood 121 mg/dL (70-110)
--- NOTE | 2022-07-01 14:55 | P.PN ---
Subjective HISTORY OF PRESENTING ILLNESS Patient is a pleasant 62-year-old female with history of Recent CVA on 05/19/2022, paroxysmal atrial fibrillation, uterine cancer undergoing chemotherapy, apparent CAD with prior "blockage with its own bypasses "likely consistent with [employer] from 2019, hypertension, hyperlipidemia, obesity, diabetes mellitus type 2. Patient unfortunately has been having issues with perineal wounds from prior radiation for cancer requiring debridement and infection and previously on antibiotics. She also has been having bleeding from the wounds. She had prior hospitalization approximate month ago. She was placed on antibiotics and unfortunately developed C. diff colitis. She has been on oral vancomycin. Cardiology was consulted secondary to patient having a loss of consciousness episode yesterday which occurred when she was being clean. Patient does not recall the entire event however per nursing apparently had been been washed and maneuvered and then had brief loss of consciousness reviewed with return a few minutes later, not requiring any CPR. Telemetry reveals atrophic fibrillation with controlled ventricular rates. She does admit to mild amount of chest discomfort. 06/30 Patient seen and examined. Patient underwent surgery yesterday and found to have necrotizing gangrenous right groin wound and underwent debridement and placement of a wound VAC. She admits to having some discomfort in the groin are a. Denies any chest pain or pressure. No shortness breath. Hemoglobin today 8.4, creatinine 0.9. 07/01 Patient seen and examined. Patient placed back on Eliquis. Admits to continued discomfort around the groin area. Denies any chest pain or pressure. Remains in A. fib with controlled ventricular rates 70s to 80s. PHYSICAL EXAMINATION Vital signs reviewed. CONSTITUTIONAL: No apparent distress, obese, ill appearing HEENT: Head is normocephalic. Pupils are equal, round. Sclerae anicteric. Mucous membranes of the mouth are moist. No JVD. CHEST EXAMINATION: Lungs are clear to auscultation. No chest wall tenderness is noted on palpation or with deep breathing. HEART EXAMINATION: Irregular, tachycardic rate and rhythm. S1, S2 heard. No murmurs, gallops or rub. ABDOMEN: Soft, nontender. Positive bowel sounds. EXTREMITIES: 2+ peripheral pulses, no lower extremity edema and no calf ten derness. SKIN: Right groin necrotic wound, multiple wounds in perineal area NEUROLOGIC EXAMINATION: Patient is awake, alert and oriented x3. ASSESSMENT Multiple necrotizing wounds in groin and perineal area, with bleeding and requiring debridement, wound vac placement 06/29 Paroxysmal atrial fibrillation Mild chest discomfort, improved Loss of consciousness, appears likely vasovagal related. No significant tachycardia or bradycardia arrhythmia on telemetry Recent Acute CVA in 05/19/2022 Reported history of CAD with likely [employer] Hypertension Diabetes mellitus type 2 Uterine cancer undergoing chemotherapy with prior significant vaginal bleeding Obesity PLAN Patient with loss of consciousness appears most likely vagal related without any significant tachycardia or bradycardia arrhythmia. Continue with current medical regimen. HR's appears controlled. Restart anticoagulation tomorrow and monitor for any bleeding. Objective - Vital Signs Vital signs: Vital Signs Temp 98.3 F 07/01/22 14:00 Pulse 75 07/01/22 14:00 Resp 18 07/01/22 14:00 BP 124/72 07/01/22 14:00 Pulse Ox 95 07/01/22 14:00 FiO2 Intake & Output 06/30/22 07/01/22 07/01/22 18:59 06:59 18:59 Intake Total 1080 Output Total 700 450 Balance 380 -450 Intake: Oral 1080 Output: Urine 700 450 Other: Voiding Method Indwelling Catheter Indwelling Catheter Indwelling Catheter - Labs CBC & Chem 7: 06/30/22 06:19 06/30/22 06:19 Labs: Abnormal Lab Results - Last 24 Hours (Table) 06/30/22 06/30/22 07/01/22 Range/Units 16:33 19:56 11:47 POC Glucose (mg/dL) 134 H 156 H 121 H (70-110) mg/dL Microbiology - Last 24 Hours (Table) 06/30/22 17:45 Catheter Tip Culture - Preliminary Catheter Tip 06/27/22 21:20 Blood Culture Gram Stain - Final Blood Blood Culture - Final Klebsiella pneumoniae 06/27/22 20:00 Blood Culture Gram Stain - Final Blood Blood Culture - Final Klebsiella pneumoniae
[2022-07-01] MEDS: LACTATED RINGERS 1,000 ML IV SCH (15:39)
[2022-07-01 16:50] LABS: Glucose,Whole Blood 106 mg/dL (70-110)
--- NOTE | 2022-07-01 17:20 | P.PN ---
Subjective Progress Note Date: 07/01/22 62-year-old patient, follows with Dr. Smooth Bob. Chronic stable medical conditions include diabetes, GERD, essential hypertension, hypothyroid. Chronic low back pain. Ovarian cancer treatment for chemo and radiation treatment. September 2021 was having significant vaginal bleeding. 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 No metastatic disease. She was not felt to be surgical candidate and was to receive 3 cycles of carboplatin/Taxol followed by radiation and 3 additional cycles of the above. She completed radiation on 03/14/2022. Started back on the carbotaxol April 03 and was status post cycle 6 day 1 on May 16. May 2022: Stroke found in the left coronary radiata on the posterior aspect of left frontal lobe. Was placed on eliquis for atrial fibrillation. On recent admission patient to have a significant wound on the right groin and abdominal pannus. Was seen by Dr. mcdermott from [place] and Dr. Kasper from general surgery. May 31 underwent wound debridement by Dr. Kasper. Cultures were positive for ESBL klebsiella. Covered with vancomycin and meropenem. June 01 patient was transferred to [facility] for further management of deep wounds. Patient now presents here from [facility]. Patient become more lethargic. Difficult to arouse. Hypoxic on room air 82%. Placed on 5 L of oxygen. Patient was vomiting up on arrival of the EMS. Patient states that she is not been eating much. Kidney function is much worse since he has recently. Not eating drinking enough. Wounds are present. Patient rather lethargic during history taking. Tired easily. Patient has been nonambulatory since discharge 06/30/2022 Patient is seen and evaluated and discussed with nursing staff; no specific complaints identified Patient is status post sharp excisional debridement of necrotizing/gangrenous right groin wound POD #1 Patient remains on IV antibiotics; we will continue to monitor CBC, CRP and pro- calcitonin Cardiology following for paroxysmal atrial fibrillation; patient remains rate controlled; anticoagulation on hold for surgical procedures 07/01/2022 Patient is seen and evaluated in room at bedside; still comfortably in bed; denies any specific complaints Patient is status post sharp excisional debridement of necrotizing/gangrenous right groin wound; POD #2 Patient remains on IV antibiotics; surgery on board and recommending to continue with local care Patient is cleared to resume anticoagulation therapy tomorrow and to monitor closely for any signs of bleeding Objective - Vital Signs Vital signs: Vital Signs Temp 97.9 F 07/01/22 07:42 Pulse 77 07/01/22 07:42 Resp 16 07/01/22 07:42 BP 132/81 07/01/22 07:42 Pulse Ox 96 07/01/22 07:42 FiO2 Intake & Output 06/30/22 07/01/22 07/01/22 18:59 06:59 18:59 Intake Total 1080 Output Total 700 Balance 380 Intake: Oral 1080 Output: Urine 700 Other: Voiding Method Indwelling Catheter Indwelling Catheter Indwelling Catheter - Exam GENERAL: Laying in bed, awake, tired EYES: Pupils equal. Conjunctiva normal. HEENT: External appearance of nose and ears normal, oral cavity dry mucous membranes NECK: JVD unable to assess; masses not palpable. HEART: Heart sounds irregular; slight edema. LUNGS: Respiratory rate normal; distant breath sound. ABDOMEN: Soft, nontender, liver spleen not palpable, no masses palpable. Perianal wounds C wound care notes. PSYCH: Answering questions appropriately MUSCULOSKELETAL:No Clubbing/cyanosis;muscles-grossly intact, evidence of OA DERMATOLOGICAL: Deep wound in the abdominal pannus and in the right groin. See nursing notes for pictures - Labs CBC & Chem 7: 06/30/22 06:19 06/30/22 06:19 Labs: Abnormal Lab Results - Last 24 Hours (Table) 06/30/22 06/30/22 06/30/22 Range/Units 06:19 06:19 11:43 RBC 2.97 L (4.10-5.20) X 10*6/uL Hgb 8.4 L (12.0-15.0) g/dL Hct 28.5 L (37.2-46.3) % MCHC 29.5 L (32.0-37.0) g/dL RDW 18.7 H (11.5-14.5) % Immature Gran # 0.11 H (0.00-0.04) X 10*3/uL Lymphocytes # 0.30 L (0.90-5.00) X 10*3/uL Eosinophils # 0.01 L (0.04-0.35) X 10*3/uL Glucose 113 H (70-110) mg/dL POC Glucose (mg/dL) 137 H (70-110) mg/dL Calcium 8.0 L (8.7-10.3) mg/dL Alkaline Phosphatase 143 H (41-126) U/L Total Protein 4.9 L (6.2-8.2) g/dL Albumin 2.1 L (3.8-4.9) g/dL Albumin/Globulin Ratio 0.75 L (1.60-3.17) g/dL 06/30/22 06/30/22 Range/Units 16:33 19:56 RBC (4.10-5.20) X 10*6/uL Hgb (12.0-15.0) g/dL Hct (37.2-46.3) % MCHC (32.0-37.0) g/dL RDW (11.5-14.5) % Immature Gran # (0.00-0.04) X 10*3/uL Lymphocytes # (0.90-5.00) X 10*3/uL Eosinophils # (0.04-0.35) X 10*3/uL Glucose (70-110) mg/dL POC Glucose (mg/dL) 134 H 156 H (70-110) mg/dL Calcium (8.7-10.3) mg/dL Alkaline Phosphatase (41-126) U/L Total Protein (6.2-8.2) g/dL Albumin (3.8-4.9) g/dL Albumin/Globulin Ratio (1.60-3.17) g/dL Microbiology - Last 24 Hours (Table) 06/30/22 17:45 Catheter Tip Culture - Preliminary Catheter Tip 06/27/22 21:20 Blood Culture Gram Stain - Final Blood Blood Culture - Final Klebsiella pneumoniae 06/27/22 20:00 Blood Culture Gram Stain - Final Blood Blood Culture - Final Klebsiella pneumoniae Assessment and Plan Assessment: -Acute metabolic encephalopathy from acute kidney injury, upon presentation: Improved -Sepsis with positive blood cultures gram-positive cocci: New diagnosis Being followed by ID. -Aspiration pneumonia: Clinically better On IV cefepime -Acute kidney injury combination of prerenal and ATN.: Improved Stop metformin. IV fluids -Acute C. diff colitis from recent antibiotics: Better Oral vancomycin started 125 mg by mouth 4 times a day. -Chronic Large wound on the abdominal pannus and right groin: Not improving Plan from wound VAC on the right groin wound. Debridement of both the wounds tomorrow per Dr. Kasper -Acute stroke in the left johnston radiata on the posterior aspect of the left frontal lobe. suspected to be embolic from underlying paroxysmal atrial fibrillation, on 05/18/2022 Eliquis held for debridement. No aspirin. -Persistent atrial fibrillation: Rate controlled eliquis. Coreg 6.25 mg twice a day.. [Cardizem CD 180 mg a day. And digitoxin to be held] -Chronic dysphagia from underlying stroke : Chopped diet -Diabetes mellitus type 2 on oral hypoglycemic Hold metformin. Follow Accu-Cheks -Morbid obesity BMI 51.6 Weight loss measures -GERD Prilosec 20 mg -Essential hypertension, currently blood pressure running low Coreg 6.25 mg twice a day, hold Cardizem -Chronic urinary stress incontinence Ditropan XL 10 mg a day -Hypothyroid Synthroid 200 g a day -Acute on chronic medical debility multifactorial -DO NOT RESUSCITATE
[2022-07-01] MEDS: PANTOPRAZOLE 40 MG TABLET PO SCH (20:00)
[2022-07-01] MEDS: APIXABAN 5 MG TAB PO SCH (20:00)
[2022-07-01] MEDS: ATORVASTATIN 40 MG TAB PO SCH (20:00)
[2022-07-02] MEDS: MEROPENEM 1 GM in SODIUM CHLORIDE 0.9% 100 ML IVPB SCH ×3 (03:24→17:48)
[2022-07-02 06:43] LABS: Glucose,Whole Blood 98 mg/dL (70-110)
--- NOTE | 2022-07-02 07:37 | P.PN ---
Subjective Progress Note Date: 07/01/22 Principal diagnosis: R groin wound and diarrhea Patient is a 62-year-old female with a past medical history significant for uterine cancer status post chemoradiation with significant skin necrosis to the right groin area status post extensive surgery department culture with ESBL E. coli for the patient apparently has come having right therapy subsequently presenting back to the hospital for weakness mental status change and dehydration and apparently the patient also have a diarrhea and stool for significantly positive.Patient is s/p surgical debridement of the left lower abdominal wall necrotic wound on 06/29/2022. On today's evaluation that is 07/01/2022, the patient continues to be afebrile, patient is breathing comfortably on nasal cannula oxygen, the patient denies any chest pain shortness of breath or cough abdominal pain is currently controlled and only one small loose stool today per the nursing staff Objective - Vital Signs Vital signs: Vital Signs Temp 97.9 F 07/01/22 07:42 Pulse 77 07/01/22 07:42 Resp 16 07/01/22 07:42 BP 132/81 07/01/22 07:42 Pulse Ox 96 07/01/22 07:42 FiO2 Intake & Output 06/30/22 07/01/22 07/01/22 18:59 06:59 18:59 Intake Total 1080 Output Total 700 Balance 380 Intake: Oral 1080 Output: Urine 700 Other: Voiding Method Indwelling Catheter Indwelling Catheter Indwelling Catheter - Exam GENERAL DESCRIPTION: Middle-aged female lying in bed, no distress. No tachypnea or accessory muscle of respiration use. LUNGS: Unlabored breathing. Clear to auscultation anteriorly. No wheeze or crackle. HEART: S1, S2, regular rate and rhythm. No loud murmur ABDOMEN: Soft, no tenderness , wound to the Bilateral groin covered with wound vac EXTREMITIES: Diffuse swelling bilateral lower extremity. - Labs CBC & Chem 7: 06/30/22 06:19 06/30/22 06:19 Labs: Abnormal Lab Results - Last 24 Hours (Table) 06/30/22 06/30/22 07/01/22 Range/Units 16:33 19:56 11:47 POC Glucose (mg/dL) 134 H 156 H 121 H (70-110) mg/dL Microbiology - Last 24 Hours (Table) 06/30/22 17:45 Catheter Tip Culture - Preliminary Catheter Tip 06/27/22 21:20 Blood Culture Gram Stain - Final Blood Blood Culture - Final Klebsiella pneumoniae 06/27/22 20:00 Blood Culture Gram Stain - Final Blood Blood Culture - Final Klebsiella pneumoniae Assessment and Plan (1) Right groin wound Current Visit: No Status: Acute Code(s): S31.109A - UNSP OPN WND ABD WALL, UNSP Q W/O PENET PERIT CAV, INIT SNOMED Code(s): 594054380 Plan: 1-patient with a C. difficile colitis in this patient clinically responding to the oral vancomycin to continue encourage yogurt intake 2-patient with a fever and now with evidence of ESBL Klebsiella bacteremia source questionably midline infection which has been discontinued and the tip has been sent for the culture blood culture has been repeated, patient to continue with the meropenem 3-bilateral groin wound postdebridement continue local wound care with wound VAC Time with Patient: Less than 30
[2022-07-02] MEDS: INSULIN ASPART (NovoLOG) 100 UNIT/ML VIAL SQ SCH ×3 (08:33→17:49)
[2022-07-02] MEDS: polyethylene glycoL 3350 17 GM POWD.PACK PO SCH (09:13)
[2022-07-02] MEDS: HYDROcodone/APAP 10-325MG 1 EACH TAB PO PRN ×3 (09:20→17:48)
[2022-07-02] MEDS: OXYBUTYNIN 10 MG TAB.ER.24 PO SCH (09:20)
[2022-07-02] MEDS: VANCOMYCIN 125 MG CAPSULE PO SCH ×4 (09:20→19:48)
[2022-07-02] MEDS: LEVOTHYROXINE 100 MCG TAB PO SCH (09:21)
[2022-07-02] MEDS: NYSTATIN 100,000 UNIT/GM POWD 15 GM TOPICAL SCH ×2 (09:21→17:49)
[2022-07-02] MEDS: APIXABAN 5 MG TAB PO SCH ×2 (09:21→19:49)
[2022-07-02] MEDS: carvediloL 6.25 MG TAB PO SCH ×2 (09:21→17:48)
[2022-07-02] MEDS: HYDROPHILIC CREAM 180 GM TUBE TOPICAL SCH (09:22)
--- NOTE | 2022-07-02 11:21 | P.PN ---
Subjective Progress Note Date: 07/02/22 This is a pleasant 62-year-old female patient with history of recent CVA on 05/19/2022, paroxysmal atrial fibrillation, uterine cancer undergoing chemotherapy, parents CAD with prior blockage with its own bypasses likely consistent with CT of 2018, hypertension, hyperlipidemia, obesity and diabetes mellitus. Patient has recently been having issues with peroneal wounds from prior radiation requiring debridement with infection and previously on antibiotics. Stent having bleeding from these wounds. She had prior hospitalization presently one month ago and was placed on antibiotics and unfortunately developed C. difficile colitis. She's been on oral vancomycin. We were consulted secondary to patient having loss of consciousness episode while being cleaned up. Patient does not recall the episode however per nursing apparently had been washed and maneuvered and then had a brief loss of consciou sness lasting a few minutes not requiring CPR. Telemetry revealed atrial fibrillation with controlled ventricular rates. On 06/29/2022 patient underwent surgery and found to have necrotizing gangrenous right groin wound and underwent debridement and placement of a wound VAC. Hemoglobin was 8.3. Eliquis was initially on hold but has been resumed. His had no further syncopal episodes. Remains in atrial fibrillation with a controlled ventricular response. Objective - Vital Signs Vital signs: Vital Signs Temp 98 F 07/02/22 07:46 Pulse 83 07/02/22 07:46 Resp 17 07/02/22 07:46 BP 151/82 07/02/22 07:46 Pulse Ox 98 07/02/22 07:46 FiO2 Intake & Output 07/01/22 07/02/22 07/02/22 18:59 06:59 18:59 Output Total 450 900 Balance -450 -900 Output: Urine 450 900 Other: Voiding Method Indwelling Catheter Indwelling Catheter - Exam PHYSICAL EXAMINATION: HEENT: Head is atraumatic, normocephalic. Pupils equal, round. Neck is supple. There is no elevated jugular venous pressure. HEART EXAMINATION: Heart sounds irregular rate and rhythm, S1 and S2 normal. No murmur or gallop heard. CHEST EXAMINATION: Lungs are clear to auscultation and precussion. No chest wall tenderness is noted on palpation or with deep breathing. ABDOMEN: Soft, nontender. Bowel sounds are heard. No organomegaly noted. EXTREMITIES: 2+ peripheral pulses with no evidence of peripheral edema and no calf tenderness noted. NEUROLOGIC patient is awake, alert and oriented x3. . - Labs CBC & Chem 7: 06/30/22 06:19 06/30/22 06:19 Labs: Abnormal Lab Results - Last 24 Hours (Table) 07/01/22 Range/Units 11:47 POC Glucose (mg/dL) 121 H (70-110) mg/dL Assessment and Plan Assessment: Multiple necrotizing wounds in groin and perineal area, with bleeding and requiring debridement, wound vac placement 06/29 Paroxysmal atrial fibrillation Mild chest discomfort, improved Loss of consciousness, appears likely vasovagal related. 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 Medications were reviewed and we will continue the same. Heart rates are well controlled. Most recent hemoglobin 8.4 prior to resuming Eliquis. We will check a CBC. We'll continue to follow the patient throughout this admission and provide further recommendations accordingly. 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 Patient was seen and examined.
--- NOTE | 2022-07-02 11:28 | P.PN ---
Subjective Progress Note Date: 07/02/22 CHIEF COMPLAINT: Right groin wound HISTORY OF PRESENT ILLNESS: Patient is postop day #3 status post debridement of the right groin wound and left pannus. Patient is sitting up in bed comfortably. She is getting a midline placed. She reports her pain is controlled. Denies any nausea or vomiting. Does report decreased oral intake. Afebrile. CBC pending PHYSICAL EXAM: VITAL SIGNS: Reviewed GENERAL: Well-developed in no acute distress. HEENT: No sclera icterus. Extraocular movements grossly intact. Moist buccal mucosa. Head is atraumatic, normocephalic. Hears conversational speech. No nasal drainage. NECK: Supple without lymphadenopathy. CHEST: Non-labored respirations and equal bilateral excursions. CARDIOVASCULAR: Palpable 2+ radial pulses. ABDOMEN: Large pannus. Wound VAC in place MUSCULOSKELETAL: No clubbing or cyanosis. NEUROLOGIC: No focal or lateralizing signs. Cranial nerves II through XII grossly intact. PSYCH: Appropriate affect. Alert and oriented to person, place and time. SKIN: Well perfused. Good skin turgor. ASSESSMENT: 1. Necrotizing/gangrenous right groin wound/pubis, 42 x 10 cm 2. History of uterine cancer and radiation 3. Morbid obesity due to excess calories, BMI 48.9 4. Panniculitis, over 50 pounds 5. Recent cerebrovascular accident 6. Atrial fibrillation with rapid ventricular response 7. Hypothyroidism 8. Insulin-dependent diabetes type 2 with retinopathy 9. Gastroesophageal reflux disease 10. Hyperlipidemia 11. Chronic anticoagulation 12. 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 C. diff colitis PLAN: -Continue wound VAC. Patient is scheduled for wound VAC change today -Continue high protein diet -Continue Renny protein drinks -Continue supportive care -Continue C. diff treatment per infectious disease -GI prophylaxis Protonix and DVT prophylaxis Eliquis Physician Bridge Game Director note has been reviewed by physician. Signing provider agrees with the documented findings, assessment, and plan of care. Objective - Vital Signs Vital signs: Vital Signs Temp 98 F 07/02/22 07:46 Pulse 83 07/02/22 07:46 Resp 17 07/02/22 07:46 BP 151/82 07/02/22 07:46 Pulse Ox 98 07/02/22 07:46 FiO2 Intake & Output 07/01/22 07/02/22 07/02/22 18:59 06:59 18:59 Output Total 450 900 Balance -450 -900 Output: Urine 450 900 Other: Voiding Method Indwelling Catheter Indwelling Catheter - Labs CBC & Chem 7: 06/30/22 06:19 06/30/22 06:19 Labs: Abnormal Lab Results - Last 24 Hours (Table) 07/01/22 Range/Units 11:47 POC Glucose (mg/dL) 121 H (70-110) mg/dL
[2022-07-02 11:47] LABS: Glucose,Whole Blood 118 mg/dL (70-110)
[2022-07-02 12:13] LABS: Anisocytosis Slight; Basophils % (A) 0 %; Eosinophils # (A) 0.2 k/uL (0-0.7); Eosinophils % (A) 3 %; HCT 24.2 % (34.0-46.0); HGB 7.5 gm/dL (11.4-16.0); Hypochromasia Marked; Lymphocytes # (A) 0.4 k/uL (1.0-4.8); Lymphocytes % (A) 5 %; MCH 29.1 pg (25.0-35.0); MCHC 30.9 g/dL (31.0-37.0); MCV 94.2 fL (80.0-100.0); Mean Platelet Volume 7.3; Monocytes # (A) 0.4 k/uL (0-1.0); Monocytes % (A) 5 %; Neutrophils # (A) 6.5 k/uL (1.3-7.7); Neutrophils % (A) 86 %; Platelet Count 390 k/uL (150-450); Poikilocytosis Slight; RBC 2.56 m/uL (3.80-5.40); RDW 17.9 % (11.5-15.5); WBC 7.6 k/uL (3.8-10.6)
[2022-07-02 16:51] LABS: Glucose,Whole Blood 107 mg/dL (70-110)
[2022-07-02] MEDS: LACTATED RINGERS 1,000 ML IV SCH (17:49)
[2022-07-02] MEDS: ATORVASTATIN 40 MG TAB PO SCH (19:48)
[2022-07-02] MEDS: PANTOPRAZOLE 40 MG TABLET PO SCH (19:49)
[2022-07-02 20:30] LABS: Glucose,Whole Blood 136 mg/dL (70-110)
--- NOTE | 2022-07-02 21:08 | P.PN ---
Subjective 62-year-old patient, follows with Dr. Smooth Bob. Chronic stable medical conditions include diabetes, GERD, essential hypertension, hypothyroid. Chronic low back pain. Ovarian cancer treatment for chemo and radiation treatment. September 2021 was having significant vaginal bleeding. 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 No metastatic disease. She was not felt to be surgical candidate and was to receive 3 cycles of carboplatin/Taxol followed by radiation and 3 additional cycles of the above. She completed radiation on 03/14/2022. Started back on the carbotaxol April 03 and was status post cycle 6 day 1 on May 16. May 2022: Stroke found in the left coronary radiata on the posterior aspect of left frontal lobe. Was placed on eliquis for atrial fibrillation. On recent admission patient to have a significant wound on the right groin and abdominal pannus. Was seen by Dr. mcdermott from [place] and Dr. Kasper from general surgery. May 31 underwent wound debridement by Dr. Kasper. Cultures were positive for ESBL klebsiella. Covered with vancomycin and meropenem. June 01 patient was transferred to [facility] for further management of deep wounds. Patient now presents here from [facility]. Patient become more lethargic. Difficult to arouse. Hypoxic on room air 82%. Placed on 5 L of oxygen. Patient was vomiting up on arrival of the EMS. Patient states that she is not been eating much. Kidney function is much worse since he has recently. Not eating drinking enough. Wounds are present. Patient rather lethargic during history taking. Tired easily. Patient has been nonambulatory since discharge 06/30/2022 Patient is seen and evaluated and discussed with nursing staff; no specific complaints identified Patient is status post sharp excisional debridement of necrotizing/gangrenous right groin wound POD #1 Patient remains on IV antibiotics; we will continue to monitor CBC, CRP and pro-calcitonin Cardiology following for paroxysmal atrial fibrillation; patient remains rate controlled; anticoagulation on hold for surgical procedures 07/01/2022 Patient is seen and evaluated in room at bedside; still comfortably in bed; denies any specific complaints Patient is status post sharp excisional debridement of necrotizing/gangrenous right groin wound; POD #2 Patient remains on IV antibiotics; surgery on board and recommending to continue with local care Patient is cleared to resume anticoagulation therapy tomorrow and to monitor closely for any signs of bleeding 07-02-22 Patient still been treated for wound infection in the right groin, 1 drink change today. Patient has become pendulous abdomen and cellulitis is the skin fold in the right groin. It looks respond to treatment with meropenem. Possible catheter tip was culture for Klebsiella which is the same organism bacteremia. Also patient transported to therapy for C. diff colitis with by mouth vancomycin. Polyethylene glycol was discontinued today, a pleasant receive a dose of it yesterday as well. Monitor labs in the morning Objective - Vital Signs Vital signs: Vital Signs Temp 98 F 07/02/22 07:46 Pulse 83 07/02/22 07:46 Resp 17 07/02/22 07:46 BP 151/82 07/02/22 07:46 Pulse Ox 98 07/02/22 07:46 FiO2 Intake & Output 07/01/22 07/02/22 07/02/22 18:59 06:59 18:59 Output Total 450 900 Balance -450 -900 Output: Urine 450 900 Other: Voiding Method Indwelling Catheter Indwelling Catheter - Exam -GENERAL: The patient is alert and oriented x3, not in any acute distress. Well morbid obesity HEENT: Pupils are round and equally reacting to light. EOMI. No scleral icterus. No conjunctival pallor. Normocephalic, atraumatic. No pharyngeal erythema. No thyromegaly. CARDIOVASCULAR: S1 and S2 present. No murmurs, rubs, or gallops. PULMONARY: Chest is clear to auscultation, no wheezing or crackles. -ABDOMEN: Soft, nontender, nondistended, normoactive bowel sounds. No palpable organomegaly. Large pendulous abdomen with right groin wound and wound VAC in place with minimal surrounding cellulitis and scant purulent discharge, responding treatment MUSCULOSKELETAL: No joint swelling or deformity. EXTREMITIES: No cyanosis, clubbing, or pedal edema. NEUROLOGICAL: Gross neurological examination did not reveal any focal deficits. SKIN: No rashes. no petechiae. 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 diff colitis Paroxysmal atrial fibrillation on liquids Chronic dysphagia Morbid obesity A drop gallbladder with cholelithiasis and gallbladder sludge with no evidence of cholecystitis Anemia Plan: This is a pleasant 62 years old male with abdominal wound and PICC line infection and bacteremia Continue with meropenem Continue with oral vancomycin Continue with home dose of liquids Infectious disease and surgical team of the case Surgery Aid also on the case Labs and medication were reviewed.. Continue same treatment. Continue with symptomatic treatment. Resume home medication. Monitor lytes and vitals. DVT and GI prophylaxis. Further recommendations as per clinical course of the patient DVT prophylaxis: Eliquis GI Prophylaxis: Pepcid PT/OT: Return to half-way Prognosis is guarded
[2022-07-03] MEDS: MEROPENEM 1 GM in SODIUM CHLORIDE 0.9% 100 ML IVPB SCH ×3 (01:03→18:08)
[2022-07-03] MEDS: HYDROcodone/APAP 10-325MG 1 EACH TAB PO PRN ×5 (01:54→21:59)
[2022-07-03 07:10] LABS: Glucose,Whole Blood 95 mg/dL (70-110)
[2022-07-03] MEDS: INSULIN ASPART (NovoLOG) 100 UNIT/ML VIAL SQ SCH ×3 (07:40→18:05)
[2022-07-03] MEDS: HYDROPHILIC CREAM 180 GM TUBE TOPICAL SCH (08:24)
[2022-07-03] MEDS: FAMOTIDINE 20 MG/2 ML VIAL IV SCH ×2 (08:26→19:47)
[2022-07-03] MEDS: VANCOMYCIN 125 MG CAPSULE PO SCH ×4 (08:26→21:59)
[2022-07-03] MEDS: carvediloL 6.25 MG TAB PO SCH ×2 (08:26→18:07)
[2022-07-03] MEDS: OXYBUTYNIN 10 MG TAB.ER.24 PO SCH (08:27)
[2022-07-03] MEDS: APIXABAN 5 MG TAB PO SCH ×2 (08:27→19:47)
[2022-07-03] MEDS: LEVOTHYROXINE 100 MCG TAB PO SCH (08:27)
[2022-07-03] MEDS: NYSTATIN 100,000 UNIT/GM POWD 15 GM TOPICAL SCH ×2 (08:30→18:08)
[2022-07-03 11:54] LABS: Glucose,Whole Blood 103 mg/dL (70-110)
--- NOTE | 2022-07-03 12:00 | P.PN ---
Subjective Progress Note Date: 07/03/22 CHIEF COMPLAINT: Right groin wound HISTORY OF PRESENT ILLNESS: Patient is postop day #4 status post debridement of the right groin wound and left pannus. Patient is sitting up in bed comfortably. Patient does report worsening of pain with movement. Reports decrease in appetite. She is scheduled for wound VAC to be changed today. Afebrile. Patient seen and examined with Dr. Arauz PHYSICAL EXAM: VITAL SIGNS: Reviewed GENERAL: Well-developed in no acute distress. HEENT: No sclera icterus. Extraocular movements grossly intact. Moist buccal mucosa. Head is atraumatic, normocephalic. Hears conversational speech. No nasal drainage. NECK: Supple without lymphadenopathy. CHEST: Non-labored respirations and equal bilateral excursions. CARDIOVASCULAR: Palpable 2+ radial pulses. ABDOMEN: Large pannus. Wound VAC in place MUSCULOSKELETAL: No clubbing or cyanosis. NEUROLOGIC: No focal or lateralizing signs. Cranial nerves II through XII grossly intact. PSYCH: Appropriate affect. Alert and oriented to person, place and time. SKIN: Well perfused. Good skin turgor. ASSESSMENT: 1. Necrotizing/gangrenous right groin wound/pubis, 42 x 10 cm 2. History of uterine cancer and radiation 3. Morbid obesity due to excess calories, BMI 48.9 4. Panniculitis, over 50 pounds 5. Recent cerebrovascular accident 6. Atrial fibrillation with rapid ventricular response 7. Hypothyroidism 8. Insulin-dependent diabetes type 2 with retinopathy 9. Gastroesophageal reflux disease 10. Hyperlipidemia 11. Chronic anticoagulation 12. 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 C. diff colitis PLAN: -Continue wound VAC. Patient is scheduled for wound VAC change today -Continue high protein diet -Continue Ensure protein drinks. Patient doesn't like Renny -Continue supportive care -Continue C. diff treatment per infectious disease -GI prophylaxis Protonix and DVT prophylaxis Eliquis Physician Clinical Rehab Liaison note has been reviewed by physician. Signing provider agrees with the documented findings, assessment, and plan of care. Objective - Vital Signs Vital signs: Vital Signs Temp 98.2 F 07/03/22 08:00 Pulse 81 07/03/22 08:00 Resp 17 07/03/22 08:00 BP 155/101 07/03/22 08:00 Pulse Ox 97 07/03/22 08:00 FiO2 Intake & Output 07/02/22 07/03/22 07/03/22 18:59 06:59 18:59 Output Total 1800 Balance -1800 Weight 159.6 kg Output: Urine 1800 Other: Voiding Method Indwelling Catheter Indwelling Catheter Indwelling Catheter - Labs CBC & Chem 7: 07/02/22 11:39 06/30/22 06:19 Labs: Abnormal Lab Results - Last 24 Hours (Table) 07/02/22 07/02/22 Range/Units 11:39 20:29 RBC 2.56 L (3.80-5.40) m/uL Hgb 7.5 L (11.4-16.0) gm/dL Hct 24.2 L (34.0-46.0) % MCHC 30.9 L (31.0-37.0) g/dL RDW 17.9 H (11.5-15.5) % Lymphocytes # 0.4 L (1.0-4.8) k/uL POC Glucose (mg/dL) 136 H (70-110) mg/dL Microbiology - Last 24 Hours (Table) 06/30/22 17:45 Catheter Tip Culture - Final Catheter Tip Klebsiella pneumoniae
--- NOTE | 2022-07-03 12:21 | P.PN ---
Subjective Progress Note Date: 07/03/22 This is a pleasant 62-year-old female patient with history of recent CVA on 05/19/2022, paroxysmal atrial fibrillation, uterine cancer undergoing chemotherapy, parents CAD with prior blockage with its own bypasses likely consistent with CT of 2018, hypertension, hyperlipidemia, obesity and diabetes mellitus. Patient has recently been having issues with peroneal wounds from prior radiation requiring debridement with infection and previously on antibiotics. Stent having bleeding from these wounds. She had prior hospitalization presently one month ago and was placed on antibiotics and unfortunately developed C. difficile colitis. She's been on oral vancomycin. We were consulted secondary to patient having loss of consciousness episode while being cleaned up. Patient does not recall the episode however per nursing apparently had been washed and maneuvered and then had a brief loss of consciou sness lasting a few minutes not requiring CPR. Telemetry revealed atrial fibrillation with controlled ventricular rates. On 06/29/2022 patient underwent surgery and found to have necrotizing gangrenous right groin wound and underwent debridement and placement of a wound VAC. Hemoglobin was 8.3. Eliquis was initially on hold but has been resumed. His had no further syncopal episodes. Remains in atrial fibrillation with a controlled ventricular response. 07/03/2022 She was seen and examined resting comfortably in bed. Her breathing is stable. Hemoglobin yesterday 7.5. She remains on Eliquis. Objective - Vital Signs Vital signs: Vital Signs Temp 98.2 F 07/03/22 08:00 Pulse 81 07/03/22 08:00 Resp 17 07/03/22 08:00 BP 155/101 07/03/22 08:00 Pulse Ox 97 07/03/22 08:00 FiO2 Intake & Output 07/02/22 07/03/22 07/03/22 18:59 06:59 18:59 Output Total 1800 Balance -1800 Weight 159.6 kg Output: Urine 1800 Other: Voiding Method Indwelling Catheter Indwelling Catheter Indwelling Catheter - Exam PHYSICAL EXAMINATION: HEENT: Head is atraumatic, normocephalic. Pupils equal, round. Neck is supple. There is no elevated jugular venous pressure. HEART EXAMINATION: Heart sounds irregular rate and rhythm, S1 and S2 normal. No murmur or gallop heard. CHEST EXAMINATION: Lungs are clear to auscultation and precussion. No chest wall tenderness is noted on palpation or with deep breathing. ABDOMEN: Soft, nontender. Bowel sounds are heard. No organomegaly noted. EXTREMITIES: 2+ peripheral pulses with no evidence of peripheral edema and no calf tenderness noted. NEUROLOGIC patient is awake, alert and oriented x3. . - Labs CBC & Chem 7: 07/02/22 11:39 06/30/22 06:19 Labs: Abnormal Lab Results - Last 24 Hours (Table) 07/02/22 Range/Units 20:29 POC Glucose (mg/dL) 136 H (70-110) mg/dL Microbiology - Last 24 Hours (Table) 06/30/22 17:45 Catheter Tip Culture - Final Catheter Tip Klebsiella pneumoniae Assessment and Plan Assessment: Multiple necrotizing wounds in groin and perineal area, with bleeding and requiring debridement, wound vac placement 06/29 Paroxysmal atrial fibrillation Mild chest discomfort, improved Loss of consciousness, appears likely vasovagal related. No significant tachycardia or bradycardia arrhythmia on telemetry Recent Acute CVA in 05/19/2022 Reported history of CAD with likely [employer] Hypertension Diabetes mellitus type 2 Uterine cancer undergoing chemotherapy with prior significant vaginal bleeding Obesity Plan: From cardiology's perspective patient has had no further episodes of syncope. Medications were reviewed and we will continue the same. Heart rates are well controlled. At this time will follow the patient on an as-needed basis. Please do not hesitate to contact us with questions. COMPUTER ARCHITECT note has been reviewed, I agree with a documented findings and plan of care. Patient was seen and examined.
[2022-07-03 16:39] LABS: Glucose,Whole Blood 108 mg/dL (70-110)
[2022-07-03] MEDS: LACTATED RINGERS 1,000 ML IV SCH (18:04)
[2022-07-03] MEDS: PANTOPRAZOLE 40 MG TABLET PO SCH (19:46)
[2022-07-03] MEDS: ATORVASTATIN 40 MG TAB PO SCH (19:46)
[2022-07-03 20:48] LABS: Glucose,Whole Blood 129 mg/dL (70-110)
--- NOTE | 2022-07-03 20:51 | P.PN ---
Subjective 62-year-old patient, follows with Dr. Smooth Bob. Chronic stable medical conditions include diabetes, GERD, essential hypertension, hypothyroid. Chronic low back pain. Ovarian cancer treatment for chemo and radiation treatment. September 2021 was having significant vaginal bleeding. 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 No metastatic disease. She was not felt to be surgical candidate and was to receive 3 cycles of carboplatin/Taxol followed by radiation and 3 additional cycles of the above. She completed radiation on 03/14/2022. Started back on the carbotaxol April 03 and was status post cycle 6 day 1 on May 16. May 2022: Stroke found in the left coronary radiata on the posterior aspect of left frontal lobe. Was placed on eliquis for atrial fibrillation. On recent admission patient to have a significant wound on the right groin and abdominal pannus. Was seen by Dr. mcdermott from [place] and Dr. Kasper from general surgery. May 31 underwent wound debridement by Dr. Kasper. Cultures were positive for ESBL klebsiella. Covered with vancomycin and meropenem. June 01 patient was transferred to [facility] for further management of deep wounds. Patient now presents here from [facility]. Patient become more lethargic. Difficult to arouse. Hypoxic on room air 82%. Placed on 5 L of oxygen. Patient was vomiting up on arrival of the EMS. Patient states that she is not been eating much. Kidney function is much worse since he has recently. Not eating drinking enough. Wounds are present. Patient rather lethargic during history taking. Tired easily. Patient has been nonambulatory since discharge 06/30/2022 Patient is seen and evaluated and discussed with nursing staff; no specific complaints identified Patient is status post sharp excisional debridement of necrotizing/gangrenous right groin wound POD #1 Patient remains on IV antibiotics; we will continue to monitor CBC, CRP and pro-calcitonin Cardiology following for paroxysmal atrial fibrillation; patient remains rate controlled; anticoagulation on hold for surgical procedures 07/01/2022 Patient is seen and evaluated in room at bedside; still comfortably in bed; denies any specific complaints Patient is status post sharp excisional debridement of necrotizing/gangrenous right groin wound; POD #2 Patient remains on IV antibiotics; surgery on board and recommending to continue with local care Patient is cleared to resume anticoagulation therapy tomorrow and to monitor closely for any signs of bleeding 07-02-22 Patient still been treated for wound infection in the right groin, 1 drink change today. Patient has become pendulous abdomen and cellulitis is the skin fold in the right groin. It looks respond to treatment with meropenem. Possible catheter tip was culture for Klebsiella which is the same organism bacteremia. Also patient transported to therapy for C. diff colitis with by mouth vancomycin. Polyethylene glycol was discontinued today, a pleasant receive a dose of it yesterday as well. Monitor labs in the morning 07-03-22 pt is awake and alert with no new complaint, she still has poor appetite related to her infection , both inguinal wound and her c diff infection her appetite is started to improve again she is hemodynamically stable labs are stable she is still on meropenenem and oral vancomycin Objective - Vital Signs Vital signs: Vital Signs Temp 98.2 F 07/03/22 08:00 Pulse 81 07/03/22 08:00 Resp 17 07/03/22 08:00 BP 155/101 07/03/22 08:00 Pulse Ox 97 07/03/22 08:00 FiO2 Intake & Output 07/02/22 07/03/22 07/03/22 18:59 06:59 18:59 Output Total 1800 Balance -1800 Weight 159.6 kg Output: Urine 1800 Other: Voiding Method Indwelling Catheter Indwelling Catheter Indwelling Catheter - Exam -GENERAL: The patient is alert and oriented x3, not in any acute distress. Well morbid obesity HEENT: Pupils are round and equally reacting to light. EOMI. No scleral icterus. No conjunctival pallor. Normocephalic, atraumatic. No pharyngeal erythema. No thyromegaly. CARDIOVASCULAR: S1 and S2 present. No murmurs, rubs, or gallops. PULMONARY: Chest is clear to auscultation, no wheezing or crackles. -ABDOMEN: Soft, nontender, nondistended, normoactive bowel sounds. No palpable organomegaly. Large pendulous abdomen with right groin wound and wound VAC in place with minimal surrounding cellulitis and scant purulent discharge, responding treatment MUSCULOSKELETAL: No joint swelling or deformity. EXTREMITIES: No cyanosis, clubbing, or pedal edema. NEUROLOGICAL: Gross neurological examination did not reveal any focal deficits. SKIN: No rashes. no petechiae. - Labs CBC & Chem 7: 07/02/22 11:39 06/30/22 06:19 Labs: Abnormal Lab Results - Last 24 Hours (Table) 07/02/22 Range/Units 20:29 POC Glucose (mg/dL) 136 H (70-110) mg/dL Microbiology - Last 24 Hours (Table) 06/30/22 17:45 Catheter Tip Culture - Final Catheter Tip Klebsiella pneumoniae Assessment and Plan Assessment: Right groin and abdominal wound wound with cellulitis status post debridement Maninder status post wound VAC PICC line catheter tip infection with Klebsiella Klebsiella bacteremia secondary to above C. diff colitis Paroxysmal atrial fibrillation on liquids Chronic dysphagia Morbid obesity A drop gallbladder with cholelithiasis and gallbladder sludge with no evidence of cholecystitis Anemia Plan: This is a pleasant 62 years old male with abdominal wound and PICC line infection and bacteremia Continue with meropenem Continue with oral vancomycin Continue with home dose of liquids Infectious disease and surgical team of the case Regulatory Affairs Assistant also on the case Labs and medication were reviewed.. Continue same treatment. Continue with symptomatic treatment. Resume home medication. Monitor lytes and vitals. DVT and GI prophylaxis. Further recommendations as per clinical course of the patient DVT prophylaxis: Eliquis GI Prophylaxis: Pepcid PT/OT: Return to half-way Prognosis is guarded
--- NOTE | 2022-07-03 21:06 | P.PN ---
Subjective Progress Note Date: 07/02/22 Principal diagnosis: R groin wound and diarrhea Patient is a 62-year-old female with a past medical history significant for uterine cancer status post chemoradiation with significant skin necrosis to the right groin area status post extensive surgery department culture with ESBL E. coli for the patient apparently has come having right therapy subsequently presenting back to the hospital for weakness mental status change and dehydration and apparently the patient also have a diarrhea and stool for significantly positive.Patient is s/p surgical debridement of the left lower abdominal wall necrotic wound on 06/29/2022. On today's evaluation that is 07/02/2022, the patient remains to be afebrile, patient is breathing comfortably on nasal cannula oxygen, the patient denies chest pain shortness of breath or cough, the patient abdominal pain is currently controlled , did have one large loose stool today per the nursing staff Objective - Vital Signs Vital signs: Vital Signs Temp 98 F 07/02/22 07:46 Pulse 83 07/02/22 07:46 Resp 17 07/02/22 07:46 BP 151/82 07/02/22 07:46 Pulse Ox 98 07/02/22 07:46 FiO2 Intake & Output 07/01/22 07/02/22 07/02/22 18:59 06:59 18:59 Output Total 450 900 Balance -450 -900 Output: Urine 450 900 Other: Voiding Method Indwelling Catheter Indwelling Catheter - Exam GENERAL DESCRIPTION: Middle-aged female lying in bed, no distress. No tachypnea or accessory muscle of respiration use. LUNGS: Unlabored breathing. Clear to auscultation anteriorly. No wheeze or crackle. HEART: S1, S2, regular rate and rhythm. No loud murmur ABDOMEN: Soft, no tenderness , wound to the Bilateral groin covered with wound vac EXTREMITIES: Diffuse swelling bilateral lower extremity. - Labs CBC & Chem 7: 07/02/22 11:39 06/30/22 06:19 Labs: Abnormal Lab Results - Last 24 Hours (Table) 07/02/22 07/02/22 Range/Units 11:39 11:46 RBC 2.56 L (3.80-5.40) m/uL Hgb 7.5 L (11.4-16.0) gm/dL Hct 24.2 L (34.0-46.0) % MCHC 30.9 L (31.0-37.0) g/dL RDW 17.9 H (11.5-15.5) % Lymphocytes # 0.4 L (1.0-4.8) k/uL POC Glucose (mg/dL) 118 H (70-110) mg/dL Assessment and Plan (1) Right groin wound Current Visit: No Status: Acute Code(s): S31.109A - UNSP OPN WND ABD WALL, UNSP Q W/O PENET PERIT CAV, INIT SNOMED Code(s): 527487661 Plan: 1-patient with a C. difficile colitis in this patient clinically responding to the oral vancomycin to continue encourage yogurt intake 2-patient with a fever and now with evidence of ESBL Klebsiella bacteremia source questionably midline infection which has been discontinued and the tip has been sent for the culture blood culture has been repeated was on so far negative, patient to continue with the meropenem 3-bilateral groin wound postdebridement continue local wound care with wound VAC Time with Patient: Less than 30
--- NOTE | 2022-07-03 21:09 | P.PN ---
Subjective Progress Note Date: 07/03/22 Principal diagnosis: R groin wound and diarrhea Patient is a 62-year-old female with a past medical history significant for uterine cancer status post chemoradiation with significant skin necrosis to the right groin area status post extensive surgery department culture with ESBL E. coli for the patient apparently has come having right therapy subsequently presenting back to the hospital for weakness mental status change and dehydration and apparently the patient also have a diarrhea and stool for significantly positive.Patient is s/p surgical debridement of the left lower abdominal wall necrotic wound on 06/29/2022. On today's evaluation that is 07/03/2022, the patient denies any fever or any chills, patient is breathing comfortably on nasal cannula oxygen, the patient denies chest pain shortness of breath or cough, the patient abdominal pain is currently controlled denies any further diarrhea today Objective - Vital Signs Vital signs: Vital Signs Temp 98.2 F 07/03/22 08:00 Pulse 81 07/03/22 08:00 Resp 17 07/03/22 08:00 BP 155/101 07/03/22 08:00 Pulse Ox 97 07/03/22 08:00 FiO2 Intake & Output 07/02/22 07/03/22 07/03/22 18:59 06:59 18:59 Output Total 1800 Balance -1800 Weight 159.6 kg Output: Urine 1800 Other: Voiding Method Indwelling Catheter Indwelling Catheter Indwelling Catheter - Exam GENERAL DESCRIPTION: Middle-aged female lying in bed, no distress. No tachypnea or accessory muscle of respiration use. LUNGS: Unlabored breathing. Clear to auscultation anteriorly. No wheeze or crackle. HEART: S1, S2, regular rate and rhythm. No loud murmur ABDOMEN: Soft, no tenderness , wound to the Bilateral groin covered with wound vac EXTREMITIES: Diffuse swelling bilateral lower extremity. - Labs CBC & Chem 7: 07/02/22 11:39 06/30/22 06:19 Labs: Abnormal Lab Results - Last 24 Hours (Table) 07/02/22 Range/Units 20:29 POC Glucose (mg/dL) 136 H (70-110) mg/dL Microbiology - Last 24 Hours (Table) 06/30/22 17:45 Catheter Tip Culture - Final Catheter Tip Klebsiella pneumoniae Assessment and Plan (1) Right groin wound Current Visit: No Status: Acute Code(s): S31.109A - UNSP OPN WND ABD WALL, UNSP Q W/O PENET PERIT CAV, INIT SNOMED Code(s): 508239829 Plan: 1-patient with a C. difficile colitis in this patient clinically responding to the oral vancomycin which will be continued in view of continued exposure to antibiotics for bacteremia 2-patient with a fever and now with evidence of ESBL Klebsiella bacteremia source likely midline infection which has been discontinued and the tip cultures are growing ESBL Klebsiella blood cultures repeated continue with the meropenem, plan will be for two-week course of meropenem for bacteremia 3-bilateral groin wound postdebridement continue local wound care with wound VAC Time with Patient: Less than 30
[2022-07-04] MEDS ORDERED: MORPHINE SULFATE 4 MG/ML SYRINGE IVP STA (00:43)
[2022-07-04] MEDS: MEROPENEM 1 GM in SODIUM CHLORIDE 0.9% 100 ML IVPB SCH ×3 (01:47→18:05)
[2022-07-04 06:50] LABS: Glucose,Whole Blood 107 mg/dL (70-110)
[2022-07-04] MEDS: INSULIN ASPART (NovoLOG) 100 UNIT/ML VIAL SQ SCH ×3 (07:10→16:35)
[2022-07-04] MEDS: VANCOMYCIN 125 MG CAPSULE PO SCH ×4 (07:16→19:12)
[2022-07-04] MEDS: LEVOTHYROXINE 100 MCG TAB PO SCH (07:17)
[2022-07-04] MEDS: OXYBUTYNIN 10 MG TAB.ER.24 PO SCH (07:17)
[2022-07-04] MEDS: APIXABAN 5 MG TAB PO SCH ×2 (07:17→19:12)
[2022-07-04] MEDS: carvediloL 6.25 MG TAB PO SCH ×2 (07:17→16:35)
[2022-07-04] MEDS: FAMOTIDINE 20 MG/2 ML VIAL IV SCH (08:20)
[2022-07-04] MEDS: HYDROcodone/APAP 10-325MG 1 EACH TAB PO PRN ×3 (08:20→22:38)
[2022-07-04 10:52] LABS: Basophils # (A) 0.06 X 10*3/uL (0.00-0.10); Basophils % (A) 0.6 %; Eosinophils # (A) 0.26 X 10*3/uL (0.04-0.35); Eosinophils % (A) 2.7 %; HCT 26.8 % (37.2-46.3); HGB 8.1 g/dL (12.0-15.0); Lymphocytes # (A) 0.56 X 10*3/uL (0.90-5.00); Lymphocytes % (A) 5.8 %; MCH 28.2 pg (27.0-32.0); MCHC 30.2 g/dL (32.0-37.0); MCV 93.4 fL (80.0-97.0); Mean Platelet Volume 9.6 fL (9.5-12.2); Monocytes # (A) 0.63 X 10*3/uL (0.20-1.00); Monocytes % (A) 6.5 %; NRBC Per 100 WBC 0 /100 WBCS (0.0-0.0); Neutrophils # (A) 8.02 X 10*3/uL (1.80-7.70); Neutrophils % (A) 83.4 %; Platelet Count 368 X 10*3/uL (140-440); RBC 2.87 X 10*6/uL (4.10-5.20); WBC 9.63 X 10*3/uL (4.50-10.00)
[2022-07-04 11:08] LABS: African American GFR (CKD) 92.1 (60.0-200.0); Anion Gap 10.8 mmol/L (10.00-18.00); BUN/Creat Ratio 11.81 Ratio (12.00-20.00); Blood Urea Nitrogen 9.4 mg/dL (9.0-27.0); Calcium 7.7 mg/dL (8.7-10.3); Carbon Dioxide 25.3 mmol/L (20.0-27.5); Magnesium 1.5 mg/dL (1.5-2.4); Non-African American GFR(CKD) 79.4 (60.0-200.0); Potassium 4.2 mmol/L (3.5-5.5)
[2022-07-04] MEDS: NYSTATIN 100,000 UNIT/GM POWD 15 GM TOPICAL SCH ×2 (11:21→16:35)
[2022-07-04] MEDS: HYDROPHILIC CREAM 180 GM TUBE TOPICAL SCH (11:21)
--- NOTE | 2022-07-04 11:28 | P.PN ---
Subjective Progress Note Date: 07/04/22 CHIEF COMPLAINT: Right groin wound HISTORY OF PRESENT ILLNESS: Patient is postop day #5 status post debridement of the right groin wound and left pannus. Patient had wound VAC changed yesterday. Patient is sitting up in bed comfortably. Patient does report worsening of pain with movement. She denies any nausea or vomiting. She did have tachycardia. Heart rate now 92. wBC 9.63 Hgb 8.1 Patient seen and examined with Dr. Arauz PHYSICAL EXAM: VITAL SIGNS: Reviewed GENERAL: Well-developed in no acute distress. HEENT: No sclera icterus. Extraocular movements grossly intact. Moist buccal mucosa. Head is atraumatic, normocephalic. Hears conversational speech. No nasal drainage. NECK: Supple without lymphadenopathy. CHEST: Non-labored respirations and equal bilateral excursions. CARDIOVASCULAR: Palpable 2+ radial pulses. ABDOMEN: Large pannus. Wound VAC in place MUSCULOSKELETAL: No clubbing or cyanosis. NEUROLOGIC: No focal or lateralizing signs. Cranial nerves II through XII grossly intact. PSYCH: Appropriate affect. Alert and oriented to person, place and time. SKIN: Well perfused. Good skin turgor. ASSESSMENT: 1. Necrotizing/gangrenous right groin wound/pubis, 42 x 10 cm 2. History of uterine cancer and radiation 3. Morbid obesity due to excess calories, BMI 48.9 4. Panniculitis, over 50 pounds 5. Recent cerebrovascular accident 6. Atrial fibrillation with rapid ventricular response 7. Hypothyroidism 8. Insulin-dependent diabetes type 2 with retinopathy 9. Gastroesophageal reflux disease 10. Hyperlipidemia 11. Chronic anticoagulation 12. 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 C. diff colitis PLAN: -Patient can be discharged from surgical standpoint when medically cleared -Continue wound VAC -Continue high protein diet -Continue Ensure protein drinks. Patient doesn't like Renny -Continue C. diff treatment per infectious disease -Antibiotic per ID service -GI prophylaxis Protonix and DVT prophylaxis Eliquis Physician Director Of Event Management note has been reviewed by physician. Signing provider agrees with the documented findings, assessment, and plan of care. Objective - Vital Signs Vital signs: Vital Signs Temp 98.0 F 07/04/22 08:00 Pulse 92 07/04/22 08:00 Resp 16 07/04/22 08:00 BP 136/50 07/04/22 08:00 Pulse Ox 97 07/04/22 08:00 FiO2 Intake & Output 07/03/22 07/04/22 07/04/22 18:59 06:59 18:59 Intake Total 250 Output Total 1475 Balance -1475 250 Intake: Oral 250 Output: Urine 1475 Other: Voiding Method Indwelling Catheter Indwelling Catheter Indwelling Catheter - Labs CBC & Chem 7: 07/04/22 06:56 07/04/22 06:56 Labs: Abnormal Lab Results - Last 24 Hours (Table) 07/03/22 07/04/22 07/04/22 Range/Units 20:46 06:56 06:56 RBC 2.87 L (4.10-5.20) X 10*6/uL Hgb 8.1 L (12.0-15.0) g/dL Hct 26.8 L (37.2-46.3) % MCHC 30.2 L (32.0-37.0) g/dL RDW 19.0 H (11.5-14.5) % Immature Gran # 0.10 H (0.00-0.04) X 10*3/uL Neutrophils # 8.02 H (1.80-7.70) X 10*3/uL Lymphocytes # 0.56 L (0.90-5.00) X 10*3/uL BUN/Creatinine Ratio 11.81 L (12.00-20.00) Ratio POC Glucose (mg/dL) 129 H (70-110) mg/dL Calcium 7.7 L (8.7-10.3) mg/dL
[2022-07-04 12:04] LABS: Glucose,Whole Blood 142 mg/dL (70-110)
[2022-07-04 16:36] LABS: Glucose,Whole Blood 116 mg/dL (70-110)
[2022-07-04] MEDS: PANTOPRAZOLE 40 MG TABLET PO SCH (19:12)
[2022-07-04] MEDS: ATORVASTATIN 40 MG TAB PO SCH (19:12)
[2022-07-04] MEDS: FAMOTIDINE 20 MG TAB PO SCH (19:12)
[2022-07-04 20:18] LABS: Glucose,Whole Blood 110 mg/dL (70-110)
--- NOTE | 2022-07-04 20:27 | P.PN ---
Subjective 62-year-old patient, follows with Dr. Smooth Bob. Chronic stable medical conditions include diabetes, GERD, essential hypertension, hypothyroid. Chronic low back pain. Ovarian cancer treatment for chemo and radiation treatment. September 2021 was having significant vaginal bleeding. 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 No metastatic disease. She was not felt to be surgical candidate and was to receive 3 cycles of carboplatin/Taxol followed by radiation and 3 additional cycles of the above. She completed radiation on 03/14/2022. Started back on the carbotaxol April 03 and was status post cycle 6 day 1 on May 16. May 2022: Stroke found in the left coronary radiata on the posterior aspect of left frontal lobe. Was placed on eliquis for atrial fibrillation. On recent admission patient to have a significant wound on the right groin and abdominal pannus. Was seen by Dr. mcdermott from [place] and Dr. Kasper from general surgery. May 31 underwent wound debridement by Dr. Kasper. Cultures were positive for ESBL klebsiella. Covered with vancomycin and meropenem. June 01 patient was transferred to [facility] for further management of deep wounds. Patient now presents here from [facility]. Patient become more lethargic. Difficult to arouse. Hypoxic on room air 82%. Placed on 5 L of oxygen. Patient was vomiting up on arrival of the EMS. Patient states that she is not been eating much. Kidney function is much worse since he has recently. Not eating drinking enough. Wounds are present. Patient rather lethargic during history taking. Tired easily. Patient has been nonambulatory since discharge 06/30/2022 Patient is seen and evaluated and discussed with nursing staff; no specific complaints identified Patient is status post sharp excisional debridement of necrotizing/gangrenous right groin wound POD #1 Patient remains on IV antibiotics; we will continue to monitor CBC, CRP and pro-calcitonin Cardiology following for paroxysmal atrial fibrillation; patient remains rate controlled; anticoagulation on hold for surgical procedures 07/01/2022 Patient is seen and evaluated in room at bedside; still comfortably in bed; denies any specific complaints Patient is status post sharp excisional debridement of necrotizing/gangrenous right groin wound; POD #2 Patient remains on IV antibiotics; surgery on board and recommending to continue with local care Patient is cleared to resume anticoagulation therapy tomorrow and to monitor closely for any signs of bleeding 07-02-22 Patient still been treated for wound infection in the right groin, 1 drink change today. Patient has become pendulous abdomen and cellulitis is the skin fold in the right groin. It looks respond to treatment with meropenem. Possible catheter tip was culture for Klebsiella which is the same organism bacteremia. Also patient transported to therapy for C. diff colitis with by mouth vancomycin. Polyethylene glycol was discontinued today, a pleasant receive a dose of it yesterday as well. Monitor labs in the morning 07-03-22 pt is awake and alert with no new complaint, she still has poor appetite related to her infection , both inguinal wound and her c diff infection her appetite is started to improve again she is hemodynamically stable labs are stable she is still on meropenenem and oral vancomycin 07-04-22 Patient clinically is stable and doing well, she still have some discomfort and had the groin area which is expected given her extensive wound, wound VAC is in place and the area looks stable and the same with no worsening. She still remains on IV meropenem and oral vancomycin. She has only one bowel movement yesterday which is semisolid. No abdominal pain. She is speaking up her diet slowly and gradually she is eating 25% possibility time, 50% once. She tolerates that well. Plan to place PICC line and possible discharge in 24-48 hours once she is cleared by consultants Labs and vitals reviewed and they are stable surgery team already cleared the patient for Objective - Vital Signs Vital signs: Vital Signs Temp 98.0 F 07/04/22 08:00 Pulse 92 07/04/22 08:00 Resp 16 07/04/22 08:00 BP 136/50 07/04/22 08:00 Pulse Ox 97 07/04/22 08:00 FiO2 Intake & Output 07/03/22 07/04/22 07/04/22 18:59 06:59 18:59 Intake Total 250 Output Total 1475 Balance -1475 250 Intake: Oral 250 Output: Urine 1475 Other: Voiding Method Indwelling Catheter Indwelling Catheter Indwelling Catheter - Exam -GENERAL: The patient is alert and oriented x3, not in any acute distress. Well morbid obesity HEENT: Pupils are round and equally reacting to light. EOMI. No scleral icterus. No conjunctival pallor. Normocephalic, atraumatic. No pharyngeal erythema. No thyromegaly. CARDIOVASCULAR: S1 and S2 present. No murmurs, rubs, or gallops. PULMONARY: Chest is clear to auscultation, no wheezing or crackles. -ABDOMEN: Soft, nontender, nondistended, normoactive bowel sounds. No palpable organomegaly. Large pendulous abdomen with right groin wound and wound VAC in place with minimal surrounding cellulitis and scant purulent discharge, responding treatment MUSCULOSKELETAL: No joint swelling or deformity. EXTREMITIES: No cyanosis, clubbing, or pedal edema. NEUROLOGICAL: Gross neurological examination did not reveal any focal deficits. SKIN: No rashes. no petechiae. - Labs CBC & Chem 7: 07/04/22 06:56 07/04/22 06:56 Labs: Abnormal Lab Results - Last 24 Hours (Table) 07/03/22 07/04/22 07/04/22 Range/Units 20:46 06:56 06:56 RBC 2.87 L (4.10-5.20) X 10*6/uL Hgb 8.1 L (12.0-15.0) g/dL Hct 26.8 L (37.2-46.3) % MCHC 30.2 L (32.0-37.0) g/dL RDW 19.0 H (11.5-14.5) % Immature Gran # 0.10 H (0.00-0.04) X 10*3/uL Neutrophils # 8.02 H (1.80-7.70) X 10*3/uL Lymphocytes # 0.56 L (0.90-5.00) X 10*3/uL BUN/Creatinine Ratio 11.81 L (12.00-20.00) Ratio POC Glucose (mg/dL) 129 H (70-110) mg/dL Calcium 7.7 L (8.7-10.3) mg/dL 07/04/22 Range/Units 12:03 RBC (4.10-5.20) X 10*6/uL Hgb (12.0-15.0) g/dL Hct (37.2-46.3) % MCHC (32.0-37.0) g/dL RDW (11.5-14.5) % Immature Gran # (0.00-0.04) X 10*3/uL Neutrophils # (1.80-7.70) X 10*3/uL Lymphocytes # (0.90-5.00) X 10*3/uL BUN/Creatinine Ratio (12.00-20.00) Ratio POC Glucose (mg/dL) 142 H (70-110) mg/dL Calcium (8.7-10.3) mg/dL Assessment and Plan Assessment: Right groin and abdominal wound wound with cellulitis status post debridement Maninder status post wound VAC PICC line catheter tip infection with Klebsiella Klebsiella bacteremia secondary to above C. diff colitis Paroxysmal atrial fibrillation on liquids Chronic dysphagia Morbid obesity A drop gallbladder with cholelithiasis and gallbladder sludge with no evidence of cholecystitis Anemia Plan: This is a pleasant 62 years old male with abdominal wound and PICC line infection and bacteremia Continue with meropenem Continue with oral vancomycin Continue with home dose of liquids Infectious disease and surgical team of the case General Road Supervisor also on the case Labs and medication were reviewed.. Continue same treatment. Continue with symptomatic treatment. Resume home medication. Monitor lytes and vitals. DVT and GI prophylaxis. Further recommendations as per clinical course of the patient DVT prophylaxis: Eliquis GI Prophylaxis: Pepcid PT/OT: Return to custodial Prognosis is guarded
[2022-07-05] MEDS: MEROPENEM 1 GM in SODIUM CHLORIDE 0.9% 100 ML IVPB SCH ×2 (02:24→10:11)
[2022-07-05] MEDS: HYDROcodone/APAP 10-325MG 1 EACH TAB PO PRN ×4 (05:10→23:35)
[2022-07-05 07:01] LABS: Glucose,Whole Blood 118 mg/dL (70-110)
[2022-07-05] MEDS: INSULIN ASPART (NovoLOG) 100 UNIT/ML VIAL SQ SCH ×3 (07:16→16:40)
[2022-07-05] MEDS: APIXABAN 5 MG TAB PO SCH ×2 (07:20→19:36)
[2022-07-05] MEDS: carvediloL 6.25 MG TAB PO SCH ×2 (07:20→16:06)
[2022-07-05] MEDS: LEVOTHYROXINE 100 MCG TAB PO SCH (07:20)
[2022-07-05] MEDS: OXYBUTYNIN 10 MG TAB.ER.24 PO SCH (07:20)
[2022-07-05] MEDS: VANCOMYCIN 125 MG CAPSULE PO SCH ×4 (07:21→23:35)
[2022-07-05] MEDS: HYDROPHILIC CREAM 180 GM TUBE TOPICAL SCH (07:21)
[2022-07-05] MEDS: FAMOTIDINE 20 MG TAB PO SCH ×2 (07:21→19:36)
[2022-07-05] MEDS: NYSTATIN 100,000 UNIT/GM POWD 15 GM TOPICAL SCH ×2 (07:21→15:19)
[2022-07-05] MEDS: LACTATED RINGERS 1,000 ML IV SCH ×2 (07:22→16:19)
--- NOTE | 2022-07-05 08:12 | P.PN ---
Subjective Progress Note Date: 07/04/22 Principal diagnosis: R groin wound and diarrhea Patient is a 62-year-old female with a past medical history significant for uterine cancer status post chemoradiation with significant skin necrosis to the right groin area status post extensive surgery department culture with ESBL E. coli for the patient apparently has come having right therapy subsequently presenting back to the hospital for weakness mental status change and dehydration and apparently the patient also have a diarrhea and stool for significantly positive.Patient is s/p surgical debridement of the left lower abdominal wall necrotic wound on 06/29/2022. On today's evaluation that is 07/04/2022, the patient remains to be afebrile, patient is breathing comfortably on nasal cannula oxygen, the patient denies chest pain shortness of breath or cough, the patient abdominal pain is controlled and diarrhea has slowed down Objective - Vital Signs Vital signs: Vital Signs Temp 98.0 F 07/04/22 08:00 Pulse 92 07/04/22 08:00 Resp 16 07/04/22 08:00 BP 136/50 07/04/22 08:00 Pulse Ox 97 07/04/22 08:00 FiO2 Intake & Output 07/03/22 07/04/22 07/04/22 18:59 06:59 18:59 Intake Total 250 Output Total 1475 Balance -1475 250 Intake: Oral 250 Output: Urine 1475 Other: Voiding Method Indwelling Catheter Indwelling Catheter Indwelling Catheter - Exam GENERAL DESCRIPTION: Middle-aged female lying in bed, no distress. No tachypnea or accessory muscle of respiration use. LUNGS: Unlabored breathing. Clear to auscultation anteriorly. No wheeze or crackle. HEART: S1, S2, regular rate and rhythm. No loud murmur ABDOMEN: Soft, no tenderness , wound to the Bilateral groin covered with wound vac EXTREMITIES: Diffuse swelling bilateral lower extremity. - Labs CBC & Chem 7: 07/04/22 06:56 07/04/22 06:56 Labs: Abnormal Lab Results - Last 24 Hours (Table) 07/03/22 07/04/22 07/04/22 Range/Units 20:46 06:56 06:56 RBC 2.87 L (4.10-5.20) X 10*6/uL Hgb 8.1 L (12.0-15.0) g/dL Hct 26.8 L (37.2-46.3) % MCHC 30.2 L (32.0-37.0) g/dL RDW 19.0 H (11.5-14.5) % Immature Gran # 0.10 H (0.00-0.04) X 10*3/uL Neutrophils # 8.02 H (1.80-7.70) X 10*3/uL Lymphocytes # 0.56 L (0.90-5.00) X 10*3/uL BUN/Creatinine Ratio 11.81 L (12.00-20.00) Ratio POC Glucose (mg/dL) 129 H (70-110) mg/dL Calcium 7.7 L (8.7-10.3) mg/dL 07/04/22 Range/Units 12:03 RBC (4.10-5.20) X 10*6/uL Hgb (12.0-15.0) g/dL Hct (37.2-46.3) % MCHC (32.0-37.0) g/dL RDW (11.5-14.5) % Immature Gran # (0.00-0.04) X 10*3/uL Neutrophils # (1.80-7.70) X 10*3/uL Lymphocytes # (0.90-5.00) X 10*3/uL BUN/Creatinine Ratio (12.00-20.00) Ratio POC Glucose (mg/dL) 142 H (70-110) mg/dL Calcium (8.7-10.3) mg/dL Assessment and Plan (1) Right groin wound Current Visit: No Status: Acute Code(s): S31.109A - UNSP OPN WND ABD WALL, UNSP Q W/O PENET PERIT CAV, INIT SNOMED Code(s): 789673584 Plan: 1-patient with a C. difficile colitis in this patient clinically responding to the oral vancomycin which will be continued in view of continued exposure to antibiotics for bacteremia 2-patient with a fever and now with evidence of ESBL Klebsiella bacteremia source likely midline infection which has been discontinued and the tip cultures are growing ESBL Klebsiella blood cultures repeated continue with the meropenem, plan will be for two-week course of antibiotics which can be switched over to Invanz 1 g daily on discharge 3-bilateral groin wound postdebridement continue local wound care with wound VAC
--- NOTE | 2022-07-05 11:20 | P.PN ---
Subjective Progress Note Date: 07/05/22 CHIEF COMPLAINT: Right groin wound HISTORY OF PRESENT ILLNESS: Patient is postop day #6 status post debridement of the right groin wound and left pannus. Patient has wound VAC and IV antibiotics. She has been abdominal pain with movement. Pain is controlled pain medication. Denies any nausea vomiting. Did have a bowel movement. Afebrile. No new labs. Patient seen and examined with Dr. Hull PHYSICAL EXAM: VITAL SIGNS: Reviewed GENERAL: Well-developed in no acute distress. HEENT: No sclera icterus. Extraocular movements grossly intact. Moist buccal mucosa. Head is atraumatic, normocephalic. Hears conversational speech. No nasal drainage. NECK: Supple without lymphadenopathy. CHEST: Non-labored respirations and equal bilateral excursions. CARDIOVASCULAR: Palpable 2+ radial pulses. ABDOMEN: Patient has a indurated area on the pannus on the left side of the abdomen above the wound VAC that is tender with palpation and some and mildly warm to touch. Large pannus. Wound VAC in place MUSCULOSKELETAL: No clubbing or cyanosis. NEUROLOGIC: No focal or lateralizing signs. Cranial nerves II through XII grossly intact. PSYCH: Appropriate affect. Alert and oriented to person, place and time. SKIN: Well perfused. Good skin turgor. ASSESSMENT: 1. Necrotizing/gangrenous right groin wound/pubis, 42 x 10 cm 2. History of uterine cancer and radiation 3. Morbid obesity due to excess calories, BMI 48.9 4. Panniculitis, over 50 pounds 5. Recent cerebrovascular accident 6. Atrial fibrillation with rapid ventricular response 7. Hypothyroidism 8. Insulin-dependent diabetes type 2 with retinopathy 9. Gastroesophageal reflux disease 10. Hyperlipidemia 11. Chronic anticoagulation 12. 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 C. diff colitis 14. Area of induration on the left side of the pannus PLAN: -Per Dr. hull he recommends to continue to monitor the area of induration on the left side of the pannus. He recommends no further imaging at this time. He has cleared patient for discharge to [facility]. Patient will continue IV antibiotics and the wound VAC at [facility]. -Continue high protein diet -Continue Ensure protein drinks. Patient doesn't like Renny -Continue C. diff treatment per infectious disease -Antibiotic per ID service -GI prophylaxis Protonix and DVT prophylaxis Eliquis Physician Wood Boatbuilder note has been reviewed by physician. Signing provider agrees with the documented findings, assessment, and plan of care. Objective - Vital Signs Vital signs: Vital Signs Temp 97.6 F 07/05/22 07:52 Pulse 93 07/05/22 07:52 Resp 17 07/05/22 07:52 BP 127/77 07/05/22 07:52 Pulse Ox 97 07/05/22 07:52 FiO2 Intake & Output 07/04/22 07/05/22 07/05/22 18:59 06:59 18:59 Intake Total 1080 Output Total 3050 3125 Balance -1969 Intake: Oral 1080 Output: Urine 3050 3125 Other: Voiding Method Indwelling Catheter Indwelling Catheter Indwelling Catheter # Bowel Movements 1 - Labs CBC & Chem 7: 07/04/22 06:56 07/04/22 06:56 Labs: Abnormal Lab Results - Last 24 Hours (Table) 07/04/22 07/04/22 07/05/22 Range/Units 12:03 16:34 06:59 POC Glucose (mg/dL) 142 H 116 H 118 H (70-110) mg/dL Microbiology - Last 24 Hours (Table) 07/03/22 21:12 Blood Culture - Preliminary Blood No Growth after 24 hours
[2022-07-05 11:26] LABS: Glucose,Whole Blood 132 mg/dL (70-110)
--- NOTE | 2022-07-05 12:39 | P.DS ---
Providers Date of admission: 06/22/22 15:57 Attending physician: Jerry Torrez Consults: 06/22/22 12:06 Consult Physician Routine Consulting Provider: Adama Stout Consult Reason/Comments: wounds Do you want consulting provider notified?: Yes 06/22/22 12:09 Consult Physician Routine Consulting Provider: Nathaly Nolasco Consult Reason/Comments: wounds, pt known to you Do you want consulting provider notified?: Yes 06/27/22 20:22 Consult Physician Routine Consulting Provider: Adalid Reid Consult Reason/Comments: elevated heart rate Do you want consulting provider notified?: Yes 06/27/22 21:21 Consult Physician Stat Consulting Provider: Jaycee White Consult Reason/Comments: ICU management Do you want consulting provider notified?: Already Contacted Primary care physician: Smooth Bob [facility] Course: Diagnoses Right groin and abdominal wound wound with cellulitis status post debridement Maninder status post wound VAC PICC line catheter tip infection with Klebsiella Klebsiella bacteremia secondary to above C. diff colitis, improving Paroxysmal atrial fibrillation on liquids Chronic dysphagia Morbid obesity A drop gallbladder with cholelithiasis and gallbladder sludge with no evidence of cholecystitis Anemia. BMI is 56.8 Hospital course: 62-year-old patient, follows with Dr. Smooth Bob. Chronic stable medical conditions include diabetes, GERD, essential hypertension, hypothyroid. Chronic low back pain. Ovarian cancer treatment for chemo and radiation treatment. September 2021 was having significant vaginal bleeding. 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 No metastatic disease. She was not felt to be surgical candidate and was to receive 3 cycles of carboplatin/Taxol followed by radiation and 3 additional cycles of the above. She completed radiation on 03/14/2022. Started back on the carbotaxol April 03 and was status post cycle 6 day 1 on May 16. May 2022: Stroke found in the left coronary radiata on the posterior aspect of left frontal lobe. Was placed on eliquis for atrial fibrillation. On recent admission patient to have a significant wound on the right groin and abdominal pannus. Was seen by Dr. stout from ID and Dr. Kasper from general surgery. May 31 underwent wound debridement by Dr. Kasper. Cultures were positive for ESBL klebsiella. Covered with vancomycin and meropenem. June 01 patient was transferred to [facility] for further management of deep wounds. Patient now presents here from [facility]. She was diagnosed with right groin and abdominal wall wound status post debridement with klebsiella bacteremia secondary to PICC line infected tip with the same M0 Klebsiella, patient was treated with meropenem with a new PICC line placed and the plan to continue antibiotic for several days as per ID team, see discharge instructions. Patient also diarrhea is improving down to once daily for the last 2-3 days. She is been off with some tenderness on the wound VAC and she has some fullness in the left lower abdomen, however I discussed the case with surgery team about this fullness who evaluated the patient and they recommended to continue with the same antibiotics and cleared her for discharge today to follow up outpatient with Dr. Castillo. Patient informed to follow up with Dr. Castillo in 1 weeks and she agrees Also she is kept on Eliquis, and metoprolol, heart rate is controlled. Her appetite is is average eating 25-50% of her meals. Patient is that looks stable no chest pain or dyspnea, no worsening abdominal pain or vomiting. No further worsening diarrhea. No specific urinary complaints. Patient was fit for discharge by both ID and surgical team. Problems and management plan were discussed with the patient and he verbalized understanding and acceptance Patient was found stable and can be discharged home however he needs follow-up as an outpatient. Patient was instructed to follow up with PCP Dr. Bob within one week and patient agrees Patient was instructed to follow up with surgeon Dr. Newberry in one week and ID team after Markie in one week, patient agrees Patient also instructed to follow up with her oncologist as an outpatient Physical exam -Gen: patient is a AAOx3, no distress. Morbidly obese CVS: S1-S2, RRR, no murmur Lungs: B/L CTA, no wheezing -Abdomen: soft, no distention, no tenderness, positive bowel sounds. Extensive Surgical wound in the lower abdomen and on both groins is stable, in fact in a Place -Extremity: no leg edema or induration. PICC line in place the left upper extremity Time spent more than 35 minutes Patient Condition at Discharge: Poor Plan - Discharge Summary Discharge Rx Participant: No New Discharge Prescriptions: New Meropenem [Merrem] 1 gm IVPB Q8H 14 Days #42 each Famotidine [Pepcid] 20 mg PO DAILY tab carvediloL [Coreg] 6.25 mg PO BID@0800,1600 tab Continue Omeprazole Magnesium [PriLOSEC OTC] 20 mg PO HS@1999 Acetaminophen/Diphenhydramine [Tylenol PM 500-25mg] 2 tab PO HS PRN PRN Reason: Insomnia Atorvastatin [Lipitor] 40 mg PO HS@1999 Nystatin 100,000 Unit/gm Powd [Mycostatin Powder] 1 applic TOPICAL BID@0800,1600 HYDROcodone/APAP 10-325MG [[place] 10-325] 1 tab PO Q4HR PRN 3 Days #12 tab PRN Reason: Pain Nitroglycerin Sl Tabs [Nitrostat] 0.4 mg SL Q5M PRN PRN Reason: Chest Pain Levothyroxine Sodium 200 mcg PO DAILY@0800 Oxybutynin ER [Ditropan Xl] 10 mg PO DAILY@0800 Acetaminophen Tab [Tylenol] 650 mg PO Q4H PRN PRN Reason: Fever Apixaban [Eliquis] 5 mg PO BID@0800,1600 Docusate [Colace] 100 mg PO BID@0800,1600 Insulin Lispro [humaLOG Kwikpen] See Protocol SQ ACHS Changed polyethylene glycoL 3350 [Polyethylene Glycol 3350] 17 gm PO DAILY@0800 PRN #0 PRN Reason: Constipation Discontinued metFORMIN HCL ER [Glucophage XR] 500 mg PO TID@0800,1200,1800 oxyCODONE HCL 5 mg PO DAILY PRN PRN Reason: Pain dilTIAZem HCL [Cardizem LA] 180 mg PO DAILY@0800 carvediloL [Coreg] 25 mg PO BID@0800,1600 Digoxin [Lanoxin] 250 mcg PO DAILY@0800 No Action Pro Stat 1 can PO BID@0800,1600 Ensure 1 can PO BID@0800,1600 Discharge Medication List Levothyroxine Sodium 200 mcg PO DAILY@0800 10/10/21 [History] Nitroglycerin Sl Tabs [Nitrostat] 0.4 mg SL Q5M PRN 10/10/21 [History] Omeprazole Magnesium [PriLOSEC OTC] 20 mg PO HS@199905/18/22 [History] Oxybutynin ER [Ditropan Xl] 10 mg PO DAILY@0800 05/18/22 [History] Acetaminophen Tab [Tylenol] 650 mg PO Q4H PRN 06/22/22 [History] Acetaminophen/Diphenhydramine [Tylenol PM 500-25mg] 2 tab PO HS PRN 06/22/22 [History] Apixaban [Eliquis] 5 mg PO BID@0800,1600 06/22/22 [History] Atorvastatin [Lipitor] 40 mg PO HS@2000 06/22/22 [History] Docusate [Colace] 100 mg PO BID@0800,1600 06/22/22 [History] Ensure 1 can PO BID@0800,1600 06/22/22 [History] Insulin Lispro [humaLOG Kwikpen] See Protocol SQ ACHS 06/22/22 [History] Nystatin 100,000 Unit/gm Powd [Mycostatin Powder] 1 applic TOPICAL BID@0800,1600 06/22/22 [History] Pro Stat 1 can PO BID@0800,1600 06/22/22 [History] Meropenem [Merrem] 1 gm IVPB Q8H 14 Days #42 each 07/04/22 [Rx] Famotidine [Pepcid] 20 mg PO DAILY tab 07/05/22 [Rx] HYDROcodone/APAP 10-325MG [[place] 10-325] 1 tab PO Q4HR PRN 3 Days #12 tab 07/05/22 [Rx] carvediloL [Coreg] 6.25 mg PO BID@0800,1600 tab 07/05/22 [Rx] polyethylene glycoL 3350 [Polyethylene Glycol 3350] 17 gm PO DAILY@0800 PRN #0 07/05/22 [Rx] Follow up Appointment(s)/Referral(s): Nathaly Nolasco MD [STAFF PHYSICIAN] - 07/12/22 Smooth Bob MD [Primary Care Provider] - 1-2 days
[2022-07-05] MEDS: ERTAPENEM 1 GM in SODIUM CHLORIDE 0.9% 50 ML IVPB SCH (14:24)
[2022-07-05 16:25] LABS: Glucose,Whole Blood 121 mg/dL (70-110)
[2022-07-05] MEDS: PANTOPRAZOLE 40 MG TABLET PO SCH (19:36)
[2022-07-05] MEDS: ATORVASTATIN 40 MG TAB PO SCH (19:36)
[2022-07-05 20:48] LABS: Glucose,Whole Blood 158 mg/dL (70-110)
[2022-07-06] MEDS: HYDROcodone/APAP 10-325MG 1 EACH TAB PO PRN ×2 (05:51→10:41)
[2022-07-06 06:46] LABS: Glucose,Whole Blood 105 mg/dL (70-110)
[2022-07-06] MEDS: INSULIN ASPART (NovoLOG) 100 UNIT/ML VIAL SQ SCH (07:47)
[2022-07-06] MEDS: NYSTATIN 100,000 UNIT/GM POWD 15 GM TOPICAL SCH (08:13)
[2022-07-06] MEDS: APIXABAN 5 MG TAB PO SCH (08:13)
[2022-07-06] MEDS: carvediloL 6.25 MG TAB PO SCH (08:13)
[2022-07-06] MEDS: ERTAPENEM 1 GM in SODIUM CHLORIDE 0.9% 50 ML IVPB SCH (08:14)
[2022-07-06] MEDS: LEVOTHYROXINE 100 MCG TAB PO SCH (08:14)
[2022-07-06] MEDS: FAMOTIDINE 20 MG TAB PO SCH (08:14)
[2022-07-06] MEDS: HYDROPHILIC CREAM 180 GM TUBE TOPICAL SCH (08:15)
[2022-07-06] MEDS: OXYBUTYNIN 10 MG TAB.ER.24 PO SCH (08:15)
[2022-07-06] MEDS: VANCOMYCIN 125 MG CAPSULE PO SCH (08:15)
[2022-07-06 08:42] VITALS: BP 136/70; PULSE 98; RESP 16; TEMP 98.5
--- NOTE | 2022-07-06 10:14 | P.PN ---
Subjective Progress Note Date: 07/06/22 CHIEF COMPLAINT: Right groin wound HISTORY OF PRESENT ILLNESS: Patient is postop day #7 status post debridement of the right groin wound and left pannus. Patient has wound VAC and IV antibiotics. Patient's pain is controlled. Denies any nausea vomiting. Afebrile. No new labs. Patient is scheduled for discharge today back to ECF. Wound VAC was not changed yesterday since patient will be discharged today and wound VAC will be placed at F. PHYSICAL EXAM: VITAL SIGNS: Reviewed GENERAL: Well-developed in no acute distress. HEENT: No sclera icterus. Extraocular movements grossly intact. Moist buccal mucosa. Head is atraumatic, normocephalic. Hears conversational speech. No nasal draina ge. NECK: Supple without lymphadenopathy. CHEST: Non-labored respirations and equal bilateral excursions. CARDIOVASCULAR: Palpable 2+ radial pulses. ABDOMEN: Patient has a indurated area on the pannus on the left side of the abdomen above the wound VAC that is tender with palpation. No erythema. Large pannus. Wound VAC in place MUSCULOSKELETAL: No clubbing or cyanosis. NEUROLOGIC: No focal or lateralizing signs. Cranial nerves II through XII grossly intact. PSYCH: Appropriate affect. Alert and oriented to person, place and time. SKIN: Well perfused. Good skin turgor. ASSESSMENT: 1. Necrotizing/gangrenous right groin wound/pubis, 42 x 10 cm 2. History of uterine cancer and radiation 3. Morbid obesity due to excess calories, BMI 48.9 4. Panniculitis, over 50 pounds 5. Recent cerebrovascular accident 6. Atrial fibrillation with rapid ventricular response 7. Hypothyroidism 8. Insulin-dependent diabetes type 2 with retinopathy 9. Gastroesophageal reflux disease 10. Hyperlipidemia 11. Chronic anticoagulation 12. 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 C. diff colitis 14. Area of induration on the left side of the pannus stable. continue IV antibiotics PLAN: -Patient is stable for discharge to ECF -Continue wound VAC and IV antibiotics -Apply wet-to-dry dressing to wound and have wound VAC placed at ECF -Continue high protein diet -Continue Ensure protein drinks. Patient doesn't like Renny -Continue C. diff treatment per infectious disease -Antibiotic per ID service -GI prophylaxis Protonix and DVT prophylaxis Eliquis Physician Art Framing Manager note has been reviewed by physician. Signing provider agrees with the documented findings, assessment, and plan of care. Objective - Vital Signs Vital signs: Vital Signs Temp 98.5 F 07/06/22 08:41 Pulse 98 07/06/22 08:41 Resp 16 07/06/22 08:41 BP 136/70 07/06/22 08:41 Pulse Ox 96 07/06/22 08:41 FiO2 Intake & Output 07/05/22 07/06/22 07/06/22 18:59 06:59 18:59 Intake Total 1080 480 Output Total 1300 650 Balance -220 -170 Weight 159.6 kg Intake: Oral 1080 480 Output: Drainage 100 Bilateral Lower Abdomen 100 Urine 1300 550 Uretheral ([place]) 550 Other: Voiding Method Indwelling Catheter Indwelling Catheter Indwelling Catheter - Labs CBC & Chem 7: 07/04/22 06:56 07/04/22 06:56 Labs: Abnormal Lab Results - Last 24 Hours (Table) 07/05/22 07/05/22 07/05/22 Range/Units 11:18 16:24 20:47 POC Glucose (mg/dL) 132 H 121 H 158 H (70-110) mg/dL Microbiology - Last 24 Hours (Table) 07/03/22 21:12 Blood Culture - Preliminary Blood No Growth after 48 hours
--- NOTE | 2022-07-06 10:25 | P.DS ---
Providers Date of admission: 06/22/22 15:57 Attending physician: Jerry Torrez Consults: 06/22/22 12:06 Consult Physician Routine Consulting Provider: Adama Stout Consult Reason/Comments: wounds Do you want consulting provider notified?: Yes 06/22/22 12:09 Consult Physician Routine Consulting Provider: Nathaly Nolasco Consult Reason/Comments: wounds, pt known to you Do you want consulting provider notified?: Yes 06/27/22 20:22 Consult Physician Routine Consulting Provider: Adalid Reid Consult Reason/Comments: elevated heart rate Do you want consulting provider notified?: Yes 06/27/22 21:21 Consult Physician Stat Consulting Provider: Jaycee White Consult Reason/Comments: ICU management Do you want consulting provider notified?: Already Contacted Primary care physician: Smooth Bob [facility] Course: Diagnoses Right groin and abdominal wound wound with cellulitis status post debridement Maninder status post wound VAC PICC line catheter tip infection with Klebsiella Klebsiella bacteremia secondary to above C. diff colitis, improving Paroxysmal atrial fibrillation on liquids Chronic dysphagia Morbid obesity A drop gallbladder with cholelithiasis and gallbladder sludge with no evidence of cholecystitis Anemia. BMI is 56.8 Hospital course: 62-year-old patient, follows with Dr. Smooth Bob. Chronic stable medical conditions include diabetes, GERD, essential hypertension, hypothyroid. Chronic low back pain. Ovarian cancer treatment for chemo and radiation treatment. September 2021 was having significant vaginal bleeding. 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 No metastatic disease. She was not felt to be surgical candidate and was to receive 3 cycles of carboplatin/Taxol followed by radiation and 3 additional cycles of the above. She completed radiation on 03/14/2022. Started back on the carbotaxol April 03 and was status post cycle 6 day 1 on May 16. May 2022: Stroke found in the left coronary radiata on the posterior aspect of left frontal lobe. Was placed on eliquis for atrial fibrillation. On recent admission patient to have a significant wound on the right groin and abdominal pannus. Was seen by Dr. stout from ID and Dr. Kasper from general surgery. May 31 underwent wound debridement by Dr. Kasper. Cultures were positive for ESBL klebsiella. Covered with vancomycin and meropenem. June 01 patient was transferred to [facility] for further management of deep wounds. Patient now presents here from [facility]. She was diagnosed with right groin and abdominal wall wound status post debridement with klebsiella bacteremia secondary to PICC line infected tip with the same M0 Klebsiella, patient was treated with meropenem with a new PICC line placed and the plan to continue antibiotic for several days as per ID team, see discharge instructions. Patient also will need oral vancomycin 14 days per ID team Patient also diarrhea is improving down to once daily for the last 2-3 days. She is been off with some tenderness on the wound VAC and she has some fullness in the left lower abdomen, however I discussed the case with surgery team about this fullness who evaluated the patient and they recommended to continue with the same antibiotics and cleared her for discharge today to follow up outpatient with Dr. Castillo. Patient informed to follow up with Dr. Castillo in 1 weeks and she agrees Also she is kept on Eliquis, and metoprolol, heart rate is controlled. Her appetite is is average eating 25-50% of her meals. Patient is that looks stable no chest pain or dyspnea, no worsening abdominal pain or vomiting. No further worsening diarrhea. No specific urinary complaints. Patient was fit for discharge by both ID and surgical team. Problems and management plan were discussed with the patient and he verbalized understanding and acceptance Patient was found stable and can be discharged home however he needs follow-up as an outpatient. Patient was instructed to follow up with PCP Dr. Bob within one week and patient agrees Patient was instructed to follow up with surgeon Dr. Newberry in one week and ID team after Markie in one week, patient agrees Patient also instructed to follow up with her oncologist as an outpatient Physical exam -Gen: patient is a AAOx3, no distress. Morbidly obese CVS: S1-S2, RRR, no murmur Lungs: B/L CTA, no wheezing -Abdomen: soft, no distention, no tenderness, positive bowel sounds. Extensive Surgical wound in the lower abdomen and on both groins is stable, in fact in a Place -Extremity: no leg edema or induration. PICC line in place the left upper extremity Time spent more than 35 minutes Patient Condition at Discharge: Poor Plan - Discharge Summary Discharge Rx Participant: No New Discharge Prescriptions: New Famotidine [Pepcid] 20 mg PO DAILY tab Ertapenem [INVanz] 1 gm IVPB Q24H #10 each Vancomycin Oral Solution 125 mg PO Q6HR 14 Days ml carvediloL [Coreg] 6.25 mg PO BID@0800,1600 tab Continue Omeprazole Magnesium [PriLOSEC OTC] 20 mg PO HS@1999 Acetaminophen/Diphenhydramine [Tylenol PM 500-25mg] 2 tab PO HS PRN PRN Reason: Insomnia Atorvastatin [Lipitor] 40 mg PO HS@1999 Nystatin 100,000 Unit/gm Powd [Mycostatin Powder] 1 applic TOPICAL BID@0800,1600 HYDROcodone/APAP 10-325MG [Lizella 10-325] 1 tab PO Q4HR PRN 3 Days #12 tab PRN Reason: Pain Nitroglycerin Sl Tabs [Nitrostat] 0.4 mg SL Q5M PRN PRN Reason: Chest Pain Levothyroxine Sodium 200 mcg PO DAILY@0800 Oxybutynin ER [Ditropan Xl] 10 mg PO DAILY@0800 Acetaminophen Tab [Tylenol] 650 mg PO Q4H PRN PRN Reason: Fever Apixaban [Eliquis] 5 mg PO BID@0800,1600 Docusate [Colace] 100 mg PO BID@0800,1600 Insulin Lispro [humaLOG Kwikpen] See Protocol SQ ACHS Changed polyethylene glycoL 3350 [Polyethylene Glycol 3350] 17 gm PO DAILY@0800 PRN #0 PRN Reason: Constipation Discontinued metFORMIN HCL ER [Glucophage XR] 500 mg PO TID@0800,1200,1800 oxyCODONE HCL 5 mg PO DAILY PRN PRN Reason: Pain dilTIAZem HCL [Cardizem LA] 180 mg PO DAILY@0800 carvediloL [Coreg] 25 mg PO BID@0800,1600 Digoxin [Lanoxin] 250 mcg PO DAILY@0800 No Action Pro Stat 1 can PO BID@0800,1600 Ensure 1 can PO BID@0800,1600 Discharge Medication List Levothyroxine Sodium 200 mcg PO DAILY@0800 10/10/21 [History] Nitroglycerin Sl Tabs [Nitrostat] 0.4 mg SL Q5M PRN 10/10/21 [History] Omeprazole Magnesium [PriLOSEC OTC] 20 mg PO HS@199905/18/22 [History] Oxybutynin ER [Ditropan Xl] 10 mg PO DAILY@0800 05/18/22 [History] Acetaminophen Tab [Tylenol] 650 mg PO Q4H PRN 06/22/22 [History] Acetaminophen/Diphenhydramine [Tylenol PM 500-25mg] 2 tab PO HS PRN 06/22/22 [Hi story] Apixaban [Eliquis] 5 mg PO BID@0800,1600 06/22/22 [History] Atorvastatin [Lipitor] 40 mg PO HS@199906/22/22 [History] Docusate [Colace] 100 mg PO BID@0800,1600 06/22/22 [History] Ensure 1 can PO BID@0800,1600 06/22/22 [History] Insulin Lispro [humaLOG Kwikpen] See Protocol SQ ACHS 06/22/22 [History] Nystatin 100,000 Unit/gm Powd [Mycostatin Powder] 1 applic TOPICAL BID@0800,1600 06/22/22 [History] Pro Stat 1 can PO BID@0800,1600 06/22/22 [History] Ertapenem [INVanz] 1 gm IVPB Q24H #10 each 07/05/22 [Rx] Famotidine [Pepcid] 20 mg PO DAILY tab 07/05/22 [Rx] HYDROcodone/APAP 10-325MG [Lizella 10-325] 1 tab PO Q4HR PRN 3 Days #12 tab 07/05/22 [Rx] carvediloL [Coreg] 6.25 mg PO BID@0800,1600 tab 07/05/22 [Rx] polyethylene glycoL 3350 [Polyethylene Glycol 3350] 17 gm PO DAILY@0800 PRN #0 07/05/22 [Rx] Vancomycin Oral Solution 125 mg PO Q6HR 14 Days ml 07/06/22 [Rx] Follow up Appointment(s)/Referral(s): Nathaly Nolasco MD [STAFF PHYSICIAN] - 07/12/22 Smooth Bob MD [Primary Care Provider] - 1-2 days Adama Stout MD [STAFF PHYSICIAN] - 07/23/22 1:45 pm Activity/Diet/Wound Care/Special Instructions: Heart healthy diet Activity as tolerated Discontinue PICC line when done with IV antibiotic Discharge Disposition: TRANSFER TO SNF/F
--- NOTE | 2022-07-06 13:00 | P.PN ---
Subjective Progress Note Date: 07/05/22 Principal diagnosis: R groin wound and diarrhea Patient is a 62-year-old female with a past medical history significant for uterine cancer status post chemoradiation with significant skin necrosis to the right groin area status post extensive surgery department culture with ESBL E. coli for the patient apparently has come having right therapy subsequently presenting back to the hospital for weakness mental status change and dehydration and apparently the patient also have a diarrhea and stool for significantly positive.Patient is s/p surgical debridement of the left lower abdominal wall necrotic wound on 06/29/2022. On today's evaluation that is 07/05/2022, the patient continues to be afebrile, patient is breathing comfortably on nasal cannula oxygen, the patient denies chest pain shortness of breath or cough, the patient abdominal pain is controlled and diarrhea has slowed down, patient is feeling better and no new symptoms Objective - Vital Signs Vital signs: Vital Signs Temp 97.6 F 07/05/22 07:52 Pulse 93 07/05/22 07:52 Resp 17 07/05/22 07:52 BP 127/77 07/05/22 07:52 Pulse Ox 97 07/05/22 07:52 FiO2 Intake & Output 07/04/22 07/05/22 07/05/22 18:59 06:59 18:59 Intake Total 1080 Output Total 3050 3125 Balance -1969 Intake: Oral 1080 Output: Urine 3050 3125 Other: Voiding Method Indwelling Catheter Indwelling Catheter Indwelling Catheter # Bowel Movements 1 - Exam GENERAL DESCRIPTION: Middle-aged female lying in bed, no distress. No tachypnea or accessory muscle of respiration use. LUNGS: Unlabored breathing. Clear to auscultation anteriorly. No wheeze or crackle. HEART: S1, S2, regular rate and rhythm. No loud murmur ABDOMEN: Soft, no tenderness , wound to the Bilateral groin covered with wound vac EXTREMITIES: Diffuse swelling bilateral lower extremity. - Labs CBC & Chem 7: 07/04/22 06:56 07/04/22 06:56 Labs: Abnormal Lab Results - Last 24 Hours (Table) 07/04/22 07/05/22 07/05/22 Range/Units 16:34 06:59 11:18 POC Glucose (mg/dL) 116 H 118 H 132 H (70-110) mg/dL Microbiology - Last 24 Hours (Table) 07/03/22 21:12 Blood Culture - Preliminary Blood No Growth after 24 hours Assessment and Plan (1) Right groin wound Status: Acute Code(s): S31.109A - UNSP OPN WND ABD WALL, UNSP Q W/O PENET PERIT CAV, INIT SNOMED Code(s): 749341112 Plan: 1-patient with a C. difficile colitis in this patient clinically responding to the oral vancomycin which will be continued in view of continued exposure to antibiotics for bacteremia, plan is for 2 weeks of oral vancomycin no discharge 2-patient with a fever and now with evidence of ESBL Klebsiella bacteremia source likely midline infection which has been discontinued and the tip cultures are growing ESBL Klebsiella blood cultures repeated has been negative male has been placed plan is for 10 more days of Invanz on discharge 3-bilateral groin wound postdebridement continue local wound care with wound VAC and close outpatient follow-up in the wound care center Time with Patient: Less than 30
--- NOTE | 2022-07-11 12:11 | CDI ---
Documentation Clarification Form Date: 07/11/2022 11:49:24 AM From: Janeth Meyers RN CCDS Admit Date: 06/22/2022 03:57:00 PM Patient Name: Fiorella Smith Visit Number: [id number] Discharge Date: 07/06/2022 11:27:00 AM ATTENTION: The Clinical Documentation Specialists (CDI) and [facility] Coding Staff appreciate your assistance in clarifying documentation. Please respond to the clarification below the line at the bottom and electronically sign. The CDI & [facility] Coding staff will review the response and follow-up if needed. Please note: Queries are made part of the Legal Health Record. If you have any questions, please contact the author of this message via ITS. Dr. Adama Ratliffed: UTI is documented 06/22 , ID consult and patient has [insert device brandon, SP, etc]. Additional clarification regarding the etiology of the UTI is requested. History/Risk Factors: 62-year-old female presents to the ED from [facility] for increased lethargy and oxygen saturation 82% on room air. Medical History: 05/31 Pt underwent wound debridement by Dr. Nolasco. The wound cultures were positive for ESBL klebsiella and covered with IV Vancomycin and Meropenem. 06/01 patient was transferred to [facility] for further management of the deep wounds. UTIs and DM2 06/22, H&P. Clinical Indicators: Urinalysis: 06/21 Urine color: Dark yellow; Appearance: Cloudy: Protein: 1+; Leukocyte Esterase: Large: Wbc 35. Urine culture: 06/21 Pseudomonas aeruginosa Lab results: 06/21 Wbc 7.7 Nursing Notes: 06/22 Unknown when brandon catheter was inserted. 06/28 Old indwelling catheter removed, and new indwelling catheter inserted. ID progress note: 06/28 patient with a new fever consult for possible UTI versus pneumonia cefepime was added last night and the patient fever has improved, patient will continue while waiting for the culture finalized Treatment: 06/28 06/28 Cefepime 2gm Q8H; 06/22 06/23 Ertapenem 1gm IVPB Q24H; 07/05-07/06 Ertapenem 1gm IVPB Q24H. 06/28 07/05 Meropenem 1gm IVPB Q8H. Please clarify the etiology of the UTI, if known: [x ] Brandon catheter POA [ ] Other condition, please specify [ ] Unable to determine (Template Last Revised: January 2021) MTDD
--- NOTE | 2022-07-11 13:47 | CDI ---
Documentation Clarification Form Date: 07/11/2022 11:12:11 AM From: Janeth Meyers RN CCDS Admit Date: 06/22/2022 03:57:00 PM Patient Name: Fiorella Smith Visit Number: [id number] Discharge Date: 07/06/2022 11:27:00 AM ATTENTION: The Clinical Documentation Specialists (CDI) and [facility] Coding Staff appreciate your assistance in clarifying documentation. Please respond to the clarification below the line at the bottom and electronically sign. The CDI & [facility] Coding staff will review the response and follow-up if needed. Please note: Queries are made part of the Legal Health Record. If you have any questions, please contact the author of this message via ITS. Dr. Adama Aden: There is documentation of a PICC Line infection and Klebsiella bacteremia in the 06/30 progress notes and discharge summary. Additional clarification is requested. History/Risk Factors: Uterine cancer, s/p chemoradiation, developed significant radiation necrosis to the right groin along with a deeper abscess. Extensive debridement at this visit about 3 weeks ago, subsequently was transferred to outside facility because of complexity of her wound however the patient mentioned she did not have any further debridement. Subsequently transferred to the local fdc. Patient did have a PICC line to the left arm however she is not clear if she was receiving any antibiotics at the fdc. Patient grew ESBL E. coli from blood culture during her last stay. Patient now admitted with lethargy, difficult to arouse, hypoxia and apparently has not been eating and drinking. Clinical Indicators: 06/22 ID Consult: Patient with a large wound to the right groin area after extensive surgical debridement for radionecrosis with a culture at that time was positive for ESBL and Jacki. Patient had a PICC line but no clear documentation that the patient was receiving antibiotic at the fdc. 06/22 Blood culture: no growth 06/27 Blood Culture: Klebsiella pneumoniae 06/28 IM: Sepsis with positive blood cultures gram positive cocci: new diagnosis being followed by ID. 06/30 Catheter Tip Culture: Klebsiella pneumoniae 07/03 Blood culture: No growth after 120 hours. 07/05 ID: Patient with a fever and now with evidence of ESBL Klebsiella bacteremia source likely midline infection which has been discontinued and the tip cultures are growing ESBL Klebsiella. Blood cultures repeated have been negative. Treatment: 06/28 06/28 Cefepime 2gm Q8H; 06/22 06/23 Ertapenem 1gm IVPB Q24H; 07/05-07/06 Ertapenem 1gm IVPB Q24H. 06/28 07/05 Meropenem 1gm IVPB Q8H. Discontinue PICC line 06/30 with new PICC placed and the plan to continue antibiotic for several days per ID team. ID Consult: see above Surgical debridement on 06/29 and wound vac. Can you please clarify PICC Line Infection and Klebsiella bacteremia? [ x ] Klebsiella Bacteremia due to PICC line infection present on admission [ ] Klebsiella Bacteremia due to PICC line infection developed during admission [ ] Klebsiella bacteremia due to radionecrosis and infection of pannus (PICC line contaminated) present on admission [ ] Klebsiella bacteremia due to radionecrosis and infection of pannus (PICC line contaminated) developed during admission [ ] Other, please specify [ ] Unable to determine (Template Last Revised: January 2021) MTDD
== END 2022-07-06 11:27 | DRG 264 ==
LOC: EC 21:48 → 6NMEDSUR 06-22 01:27 → OBSVTOIN 06-22 15:57 → 2SICU 06-27 21:21 → 4SSUR 06-28 15:03
PROVIDERS: ADMIT Hospitalist; ATTEND Hospitalist
PROC: 0JD83ZZ Extraction of Abdomen Subcutaneous Tissue and Fascia, Percutaneous Approach (ICD-10-PCS; principal; 2022-06-29 12:30)
PROC: 0JB80ZZ Excision of Abdomen Subcutaneous Tissue and Fascia, Open Approach (ICD-10-PCS; principal; 2022-06-29 12:30)
PROC: 05HF33Z Insertion of Infusion Device into Left Cephalic Vein, Percutaneous Approach (ICD-10-PCS; 2022-07-02)
PROC: 05HF33Z Insertion of Infusion Device into Left Cephalic Vein, Percutaneous Approach (ICD-10-PCS; 2022-07-04 15:30)
DX: T80.211A Bloodstream infection due to central venous catheter, initial encounter (principal); A41.9 Sepsis, unspecified organism; G93.41 Metabolic encephalopathy; J69.0 Pneumonitis due to inhalation of food and vomit; N17.0 Acute kidney failure with tubular necrosis; L03.311 Cellulitis of abdominal wall; A04.72 Enterocolitis due to Clostridium difficile, not specified as recurrent; C56.9 Malignant neoplasm of unspecified ovary; E11.52 Type 2 diabetes mellitus with diabetic peripheral angiopathy with gangrene; I48.19 Other persistent atrial fibrillation; Z68.43 Body mass index [BMI] 50.0-59.9, adult; K82.1 Hydrops of gallbladder; Z16.12 Extended spectrum beta lactamase (ESBL) resistance; L59.8 Other specified disorders of the skin and subcutaneous tissue related to radiation; B96.1 Klebsiella pneumoniae [K. pneumoniae] as the cause of diseases classified elsewhere; B96.5 Pseudomonas (aeruginosa) (mallei) (pseudomallei) as the cause of diseases classified elsewhere; C53.9 Malignant neoplasm of cervix uteri, unspecified; D64.9 Anemia, unspecified; E03.9 Hypothyroidism, unspecified; M79.3 Panniculitis, unspecified; E11.319 Type 2 diabetes mellitus with unspecified diabetic retinopathy without macular edema; Z66 Do not resuscitate; E11.649 Type 2 diabetes mellitus with hypoglycemia without coma; E66.01 Morbid (severe) obesity due to excess calories; F32.A Depression, unspecified; I11.9 Hypertensive heart disease without heart failure; I25.10 Atherosclerotic heart disease of native coronary artery without angina pectoris; Z86.73 Personal history of transient ischemic attack (TIA), and cerebral infarction without residual deficits; Z28.310 Unvaccinated for COVID-19; Z28.21 Immunization not carried out because of patient refusal; Z60.2 Problems related to living alone; Z71.3 Dietary counseling and surveillance; E78.5 Hyperlipidemia, unspecified; K21.9 Gastro-esophageal reflux disease without esophagitis; K80.20 Calculus of gallbladder without cholecystitis without obstruction; G89.29 Other chronic pain; E86.0 Dehydration; M19.90 Unspecified osteoarthritis, unspecified site; N39.3 Stress incontinence (female) (male); T36.8X5A Adverse effect of other systemic antibiotics, initial encounter; R09.02 Hypoxemia; R13.10 Dysphagia, unspecified; Y84.2 Radiological procedure and radiotherapy as the cause of abnormal reaction of the patient, or of later complication, without mention of misadventure at the time of the procedure; Z79.01 Long term (current) use of anticoagulants; Z79.4 Long term (current) use of insulin; Z79.890 Hormone replacement therapy; Z79.899 Other long term (current) drug therapy; Z79.84 Long term (current) use of oral hypoglycemic drugs; Z80.1 Family history of malignant neoplasm of trachea, bronchus and lung; Z82.49 Family history of ischemic heart disease and other diseases of the circulatory system; Z87.891 Personal history of nicotine dependence; Z92.21 Personal history of antineoplastic chemotherapy; Z92.3 Personal history of irradiation; Z87.440 Personal history of urinary (tract) infections; Z75.1 Person awaiting admission to adequate facility elsewhere
CPT/HCPCS: 36410; 36415; 36600; 71045; 74177; 76705; 76937; 80048; 80053; 81001; 82805; 83036; 83605; 83690; 83735; 84100; 84484; 85025; 85610; 85652; 85730; 86140; 87040; 87070; 87077; 87086; 87186; 87324; 88304; 93005; 94760; 96360; 96361; 99285

== ENCOUNTER 2022-07-13 01:45 | Inpatient (IN) | payer MEDICARE, OTHER ==
[2022-07-13] MEDS ORDERED: fentaNYL (PF) 50 MCG/ML 2 ML AMP IV STA (02:23)
[2022-07-13] MEDS ORDERED: SODIUM CHLORIDE 0.9% 1,000 ML IV STA (02:23)
[2022-07-13 03:09] LABS: Anisocytosis Slight; Basophils # (A) 0.1 k/uL (0-0.2); Basophils % (A) 1 %; Eosinophils # (A) 0.4 k/uL (0-0.7); Eosinophils % (A) 6 %; HCT 27.9 % (34.0-46.0); HGB 8.4 gm/dL (11.4-16.0); Hypochromasia Marked; Lymphocytes # (A) 0.3 k/uL (1.0-4.8); Lymphocytes % (A) 5 %; MCH 28.3 pg (25.0-35.0); MCHC 30.1 g/dL (31.0-37.0); MCV 93.9 fL (80.0-100.0); Mean Platelet Volume 7.7; Monocytes # (A) 0.6 k/uL (0-1.0); Monocytes % (A) 9 %; Neutrophils # (A) 5.1 k/uL (1.3-7.7); Neutrophils % (A) 78 %; Platelet Count 570 k/uL (150-450); Poikilocytosis Slight; RBC 2.97 m/uL (3.80-5.40); RDW 18.4 % (11.5-15.5); WBC 6.6 k/uL (3.8-10.6)
[2022-07-13 03:25] LABS: ALT 10 U/L (4-34); AST 19 U/L (14-36); African American GFR (CKD) >90 (>60 ml/min/1.73 sqM); Albumin 2.3 g/dL (3.5-5.0); Alkaline Phosphatase 99 U/L (38-126); Anion Gap 11 mmol/L; Blood Urea Nitrogen 11 mg/dL (7-17); Calcium 7.9 mg/dL (8.4-10.2); Carbon Dioxide 24 mmol/L (22-30); Chloride 100 mmol/L (98-107); Glucose 113 mg/dL (74-99); Non-African American GFR(CKD) 79 (>60 ml/min/1.73 sqM); Potassium 4.2 mmol/L (3.5-5.1); Sodium 135 mmol/L (137-145); Total Bilirubin 0.5 mg/dL (0.2-1.3); Total Protein 5.4 g/dL (6.3-8.2)
[2022-07-13] MEDS ORDERED: VANCOMYCIN IV PER PHARMACY 1 EACH MISC MISCELLANE PRN (03:46)
--- NOTE | 2022-07-13 03:55 | ED ---
General Adult HPI - General Chief complaint: Skin/Abscess/Foreign Body Stated complaint: Abdominal infection Time Seen by Provider: 07/13/22 01:53 Source: patient, RN notes reviewed, old records reviewed Mode of arrival: EMS Limitations: physical limitation - History of Present Illness Initial comments: Patient is a 62-year-old female with past medical history remarkable for atrial fibrillation, cancer, diabetes, hypertension, thyroid disorder, elevated BMI who presents from her nursing facility complaining of chronic wounds located under her pannus. She states they seem worse. She states she believes they stopped her antibiotics. Has previously required surgery per patient in August of this past year. She received surgery due to necrotizing and gangrenous wound of the pubis. She states she is having increased discharge from her wounds. Is concerned that might be worse. Presents for further evaluation at this time. Surgery was done by Dr. Nolasco. Denies any fevers. Denies any worsening shortness breath or abdominal pain. Denies nausea or vomiting. Denies any change in stooling. Denies any urinary complaints. Denies any chest pain. Presents for further evaluation of this time. Has a PICC line. - Related Data Home Medications Medication Instructions Recorded Confirmed Levothyroxine Sodium 200 mcg PO DAILY@0800 10/10/21 06/22/22 Nitroglycerin Sl Tabs [Nitrostat] 0.4 mg SL Q5M PRN 10/10/21 06/22/22 Omeprazole Magnesium [PriLOSEC OTC] 20 mg PO HS@199905/18/22 06/22/22 Oxybutynin ER [Ditropan Xl] 10 mg PO DAILY@79905/18/22 06/22/22 Acetaminophen Tab [Tylenol] 650 mg PO Q4H PRN 06/22/22 06/22/22 Acetaminophen/Diphenhydramine 2 tab PO HS PRN 06/22/22 06/22/22 [Tylenol PM 500-25mg] Apixaban [Eliquis] 5 mg PO BID@0800,159906/22/22 06/22/22 Atorvastatin [Lipitor] 40 mg PO HS@199906/22/22 06/22/22 Docusate [Colace] 100 mg PO BID@0800,1600 06/22/22 06/22/22 Ensure 1 can PO BID@0800,1600 06/22/22 06/22/22 Insulin Lispro [humaLOG Kwikpen] See Protocol SQ ACHS 06/22/22 06/22/22 Nystatin 100,000 Unit/gm Powd 1 applic TOPICAL BID@0800,1600 06/22/22 06/22/22 [Mycostatin Powder] Pro Stat 1 can PO BID@0800,1600 06/22/22 06/22/22 Previous Rx's Medication Instructions Recorded Ertapenem [INVanz] 1 gm IVPB Q24H #10 each 07/05/22 Famotidine [Pepcid] 20 mg PO DAILY tab 07/05/22 HYDROcodone/APAP 10-325MG [[place] 1 tab PO Q4HR PRN 3 Days #12 tab 07/05/22 10-325] carvediloL [Coreg] 6.25 mg PO BID@0800,1600 tab 07/05/22 polyethylene glycoL 3350 17 gm PO DAILY@0800 PRN #0 07/05/22 [Polyethylene Glycol 3350] Vancomycin Oral Solution 125 mg PO Q6HR 14 Days ml 07/06/22 Allergies Allergy/AdvReac Type Severity Reaction Status Date / Time apixaban [From Eliquis] AdvReac Unsure, Verified 06/22/22 07:12 told by Store Planner not to take Review of Systems ROS Statement: Those systems with pertinent positive or pertinent negative responses have been documented in the HPI. Review of Systems: CONST: Denies fever EYES: Denies blurry vision ENT: Denies nasal congestion C/V: Denies Chest pain RESP: Denies shortness of breath GI: Endorses chronic abdominal pain for chronic wounds of the pannus. : Denies dysuria SKIN: Endorses discharging wounds of the pannus. MSK: Denies joint pain. NEURO: Denies headache ROS Other: All systems not noted in ROS Statement are negative. Past Medical History Past Medical History: Atrial Fibrillation, Cancer, Diabetes Mellitus, GERD/Reflux, Hypertension, Thyroid Disorder Additional Past Medical History / Comment(s): Pt states she has had intermittent vaginal bleeding over past one year, NIDDM type II, UTIs, hypothyroid, chronic low back pain, occasional bilateral leg pain at night. Ovarian cancer with chemo and radiation. History of Any Multi-Drug Resistant Organisms: ESBL Date of last positivie culture/infection: 06/27/22 ESBL MDRO Source:: Blood Past Surgical History: Heart Catheterization, Tonsillectomy, Uterine Ablation Additional Past Surgical History / Comment(s): Nasal fracture with surgery, wisdom teeth extractions. Past Anesthesia/Blood Transfusion Reactions: Postoperative Nausea & Vomiting (PONV) Additional Past Anesthesia/Blood Transfusion Reaction / Comment(s): Pt received blood this hospitalization without reaction. Past Psychological History: Depression Smoking Status: Former smoker Past Alcohol Use History: None Reported Past Drug Use History: None Reported - Past Family History Father Family Medical History: Cancer Additional Family Medical History / Comment(s): Father of lung cancer. He was a smoker. Mother Family Medical History: Vascular Disorder Additional Family Medical History / Comment(s): Mother of a cerebral aneurysm at the age of 58 yrs. General Exam - General Exam Comments Initial Comments: General: Appears in no acute distress. Morbidly obese. HEAD: Normal with no signs of head trauma. EYES: PERRLA, EOMI, conjunctiva normal, no discharge. ENT: Hearing grossly intact, normal oropharynx. RESPIRATORY: Clear breath sounds bilaterally. No wheezes, rales, or rhonchi. C/V: Regular rate and rhythm. S1 and S2 auscultated, no edema, peripheral pulses 2+ and intact throughout ABD: Abd is soft, nontender, nondistended. Large pannus. EXT: Normal range of motion, no obvious deformity SKIN: Multiple open wounds under the pannus and in right groin. Appears to have purulent discharge. Surrounding erythema. No crepitus. No fluctuance appreciated. NEURO: Alert and oriented x 4. Cranial nerves II-XII intact. No focal sensory or strength deficits. Limitations: physical limitation Course Vital Signs 07/13/22 07/13/22 01:52 03:00 Temperature 98.2 F Pulse Rate 95 83 Respiratory 16 16 Rate Blood Pressure 95/72 118/66 O2 Sat by Pulse 92 L 97 Oximetry Medical Decision Making - Medical Decision Making Based on the patient's presentation and physical exam, I am concerned for possible worsening of her intra-abdominal wound. It appears they may have stopped her antibiotics. We were able to contact the nursing facility and they did stop the antibiotics for 2 days, however she has been on oral vancomycin addition to meropenem except for a slight 2 days stop between July 07 and 09 of July. Has been on vancomycin the entire time. However we will repeat cultures. We'll repeat laboratory studies. We'll repeat CT imaging of the ab lipscomb. She was in agreement with this plan. Vital signs are within normal limits. EKG is difficult to interpret but shows atrial fibrillation. The register's as an RVR, however this is due to the baseline artifact. Patient is not an RVR. Heart rate remains between 95-100. Laboratory studies are remarkable for a chronic normocytic anemia with a hemoglobin of 8.4 which is stable. Lactic acid is within normal limits. Cultures of the wound as well as blood work sent. CT imaging showed no acute process regarding the wounds. After the patient on the findings. Due to the appearance of purulent wounds, I would like to admitted to the hospital. There is a question of whether or not she was receiving her antibiotics. She'll be restarted on ertapenem as well as IV vancomycin. Like to admitted to the hospital for further evaluation. She was in agreement this plan. I spoke with the patient's admitting physician, Dr. Torrez who was the admitting doc and admits for Dr. Bob. He accepted the patient. Was in agreement with this plan. Dr. Nolasco and wound care will be consulted. - Lab Data Result diagrams: 07/13/22 02:21 07/13/22 02:21 Lab Results 07/13/22 07/13/22 07/13/22 Range/Units 02:21 02:21 03:32 WBC 6.6 (3.8-10.6) k/uL RBC 2.97 L (3.80-5.40) m/uL Hgb 8.4 L (11.4-16.0) gm/dL Hct 27.9 L (34.0-46.0) % MCV 93.9 (80.0-100.0) fL MCH 28.3 (25.0-35.0) pg MCHC 30.1 L (31.0-37.0) g/dL RDW 18.4 H (11.5-15.5) % Plt Count 570 H (150-450) k/uL MPV 7.7 Neutrophils % 78 % Lymphocytes % 5 % Monocytes % 9 % Eosinophils % 6 % Basophils % 1 % Neutrophils # 5.1 (1.3-7.7) k/uL Lymphocytes # 0.3 L (1.0-4.8) k/uL Monocytes # 0.6 (0-1.0) k/uL Eosinophils # 0.4 (0-0.7) k/uL Basophils # 0.1 (0-0.2) k/uL Hypochromasia Marked Poikilocytosis Slight Anisocytosis Slight Sodium 135 L (137-145) mmol/L Potassium 4.2 (3.5-5.1) mmol/L Chloride 100 (98-107) mmol/L Carbon Dioxide 24 (22-30) mmol/L Anion Gap 11 mmol/L BUN 11 (7-17) mg/dL Creatinine 0.80 (0.52-1.04) mg/dL Est GFR (CKD-EPI)AfAm >90 (>60 ml/min/1.73 sqM) Est GFR (CKD-EPI)NonAf 79 (>60 ml/min/1.73 sqM) Glucose 113 H (74-99) mg/dL Plasma Lactic Acid [place] 1.1 (0.7-2.0) mmol/L Calcium 7.9 L (8.4-10.2) mg/dL Total Bilirubin 0.5 (0.2-1.3) mg/dL AST 19 (14-36) U/L ALT 10 (4-34) U/L Alkaline Phosphatase 99 (38-126) U/L Total Protein 5.4 L (6.3-8.2) g/dL Albumin 2.3 L (3.5-5.0) g/dL - EKG Data -: EKG Interpreted by Me EKG Comments: 12-lead Electrocardiogram Interpretation Note Interpretation was by difficult as the patient was moving. EKG does interpreted as A. fib with RVR but there is a good deal of artifact in lead aVF, aVL, aVR. EKG was reviewed and interpreted by myself. 12-lead ECG performed at atrial fibrillation is interpreted by me as revealing normal sinus rhythm at a rate of 95-100 beats per minute. [place] is normal. RI interval is 103 ms, QTc is 378 ms.. There were no ST or T wave abnormalities to suggest myocardial ischemia or injury. R wave progression across the precordium was satisfactory. By my interpretation this EKG is non-diagnostic for acute ischemia. Difficult to interpret due to baseline artifact. Multiple attempts are made and patient would not hold still for acute EKG. Disposition Clinical Impression: Open abdominal wall wound, Atrial fibrillation, Chronic anemia, Obesity Disposition: ADMITTED IP TO THIS HOSP Condition: Stable Referrals: Smooth Bob MD [Primary Care Provider] - 1-2 days Time of Disposition: 04:55
--- NOTE | 2022-07-13 04:42 | CT ---
EXAMINATION TYPE: CT abdomen pelvis w con DATE OF EXAM: 07/13/2022 COMPARISON: 06/28/2022 HISTORY: Abd infection. CT DLP: 3131.9 mGycm Automated exposure control for dose reduction was used. CONTRAST: Performed with IV Contrast, patient injected with 100ml mL of Isovue 300. Images obtained from the diaphragm to the floor of the pelvis with IV contrast. There is pleural thickening and atelectasis at the left posterior lung base. Heart is enlarged. No p ericardial effusion. Liver and spleen are intact. No pancreatic mass. Gallbladder is intact. Gallblad romelia measures 6.4 cm. There is no adrenal mass. Kidneys show satisfactory contrast opacification. There is no hydronephrosi s. Ureters are not dilated. No retroperitoneal adenopathy. Urinary bladder is almost empty. There is [place] catheter in the bladder. Uterus is intact. No adnexal mass. No free fluid in the pelvis. No ing uinal hernia. The lumbar vertebrae have normal alignment. There is degenerative disc space narrowing throughout the lumbar spine. There is large calcified posterior disc herniation at L2-3 with spinal stenosis. There is severe spinal stenosis at L4-5 due to facet arthropathy and developmentally small spinal canal. T here is mild spinal stenosis at L3-4. There is no mesenteric edema. No ascites. No free air. No bowel obstruction. Appendix appears normal. The bony pelvis appears intact. There is hypertrophic acetabular spurring. IMPRESSION: There is improvement in the left pleural effusion and left lower lobe infiltrate compared to recent e xam. Cardiomegaly. Dilated gallbladder could be gallbladder dysfunction or cholecystitis. Gallbladder incr eased slightly compared to old exam. There is clearing of right pleural effusion compared to the old exam.
[2022-07-13] MEDS ORDERED: VANCOMYCIN 2,250 MG in SODIUM CHLORIDE 0.9% 500 ML 500 ML IVPB ONE (05:00)
[2022-07-13] MEDS ORDERED: NALOXONE 0.4 MG/ML 1 ML VIAL IV PRN (05:58)
[2022-07-13] MEDS: SODIUM CHLORIDE 0.9% 1,000 ML IV SCH ×2 (06:25→19:26)
[2022-07-13] MEDS: APIXABAN 5 MG TAB PO SCH ×2 (07:42→15:18)
[2022-07-13] MEDS: OXYBUTYNIN 10 MG TAB.ER.24 PO SCH (07:42)
[2022-07-13] MEDS: LEVOTHYROXINE 100 MCG TAB PO SCH (07:47)
[2022-07-13] MEDS ORDERED: carvediloL 6.25 MG TAB PO SCH (08:00)
[2022-07-13] MEDS: FAMOTIDINE 20 MG TAB PO SCH (08:16)
[2022-07-13] MEDS: ERTAPENEM 1 GM in SODIUM CHLORIDE 0.9% 50 ML IVPB SCH (09:12)
[2022-07-13] MEDS: MORPHINE SULFATE 4 MG/ML SYRINGE IVP PRN (10:03)
[2022-07-13] MEDS ORDERED: ACETAMINOPHEN TAB 325 MG TAB PO PRN (10:16)
[2022-07-13] MEDS ORDERED: NITROGLYCERIN SL TABS 0.4 MG TAB SUBLINGUAL PRN (10:17)
[2022-07-13] MEDS ORDERED: DEXTROSE 5% IN WATER 100 ML with AMIODARONE 150 MG IV ONE (10:20)
[2022-07-13] MEDS ORDERED: AMIODARONE 360 MG in DEXTROSE 5% IN WATER 200 ML IV ONE ×2 (10:30)
--- NOTE | 2022-07-13 10:54 | P.CONS ---
History of Present Illness - Reason for Consult Consult date: 07/13/22 wound care - History of Present Illness This is a 61-year-old patient being seen emergency room for nonhealing ulcerations to the abdomen and groin areas related to radiation [place]. 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 Patient states that the ulcerations have been there for approximately 4 months. Patient has multiple open ulcerations related to the radiation m[place]art[place]. She did undergo a surgical debridement. At this time the ulceration show granulation throughout the wound bed with serosanguineous drainage. Patient was concerned of the odor. Minimal Slough and nonviable tissues noted within the wound beds. Ulcerations are tender to palpation. Review Of Systems: Constitutional: No fever, no chills, no night sweats. No weight change. No weakness, fatigue or lethargy. No daytime sleepiness. Integumentary:reports wounds, no lesions. No rash or pruritus. No unusual bruising. No change in hair or nails. Physical exam: General Appearance: Alert, cooperative, no distress, appears stated age. Skin: See HPI all other Skin color, texture, tugor normal, no rashes or lesions. Neurologic: Alert oriented x3 Assessment: 1. Multiple open ulcerations with muscle involvement with necrosis exposure related to radiation and chemo. 2. Soft tissue radionecrosis Plan: 1. Apply absorptive silver dry, ABDs and secure with paper tape. If significant amount of drainage is noted on the ABDs and may change daily. Leave absorptive Silver in place for at least 24-48 hours. Thank you for the consultation any questions was contact the wound care center DNP note has been reviewed and discussed with Dr. Jimenez and the impression and plan of care has been directed as dictated. Past Medical History Past Medical History: Atrial Fibrillation, Cancer, Diabetes Mellitus, GERD/Reflux, Hypertension, Thyroid Disorder Additional Past Medical History / Comment(s): Pt states she has had intermittent vaginal bleeding over past one year, NIDDM type II, UTIs, hypothyroid, chronic low back pain, occasional bilateral leg pain at night. Ovarian cancer with chemo and radiation. History of Any Multi-Drug Resistant Organisms: ESBL Year Discovered:: 06/27/22 ESBL MDRO Source:: Blood Past Surgical History: Heart Catheterization, Tonsillectomy, Uterine Ablation Additional Past Surgical History / Comment(s): Nasal fracture with surgery, wisdom teeth extractions. Past Anesthesia/Blood Transfusion Reactions: Postoperative Nausea & Vomiting (PONV) Additional Past Anesthesia/Blood Transfusion Reaction / Comm: Pt received blood this hospitalization without reaction. Past Psychological History: Depression Smoking Status: Former smoker Past Alcohol Use History: None Reported Past Drug Use History: None Reported - Past Family History Father Family Medical History: Cancer Additional Family Medical History / Comment(s): Father of lung cancer. He was a smoker. Mother Family Medical History: Vascular Disorder Additional Family Medical History / Comment(s): Mother of a cerebral aneurysm at the age of 58 yrs. Medications and Allergies Home Medications Medication Instructions Recorded Confirmed Type Levothyroxine Sodium 200 mcg PO DAILY@0800 10/10/21 07/13/22 History Nitroglycerin Sl Tabs [Nitrostat] 0.4 mg SL Q5M PRN 10/10/21 07/13/22 History Oxybutynin ER [Ditropan Xl] 10 mg PO DAILY@0800 05/18/22 07/13/22 History Acetaminophen Tab [Tylenol] 650 mg PO Q4H PRN 06/22/22 07/13/22 History Acetaminophen/Diphenhydramine 2 tab PO HS PRN 06/22/22 07/13/22 History [Tylenol PM 500-25mg] Apixaban [Eliquis] 5 mg PO BID@0800,1600 06/22/22 07/13/22 History Atorvastatin [Lipitor] 40 mg PO HS@2000 06/22/22 07/13/22 History Docusate [Colace] 100 mg PO BID@0800,1600 06/22/22 07/13/22 History Ensure 1 can PO BID@0800,1600 06/22/22 07/13/22 History Insulin Lispro [humaLOG Kwikpen] See Protocol SQ ACHS 06/22/22 07/13/22 History Nystatin 100,000 Unit/gm Powd 1 applic TOPICAL BID@0800,1600 06/22/22 07/13/22 History [Mycostatin Powder] Pro Stat 1 can PO TID 06/22/22 07/13/22 History Ertapenem [INVanz] 1 gm IVPB Q24H #10 each 07/05/22 07/13/22 Rx Famotidine [Pepcid] 20 mg PO DAILY tab 07/05/22 07/13/22 Rx HYDROcodone/APAP 10-325MG [[place] 1 tab PO Q4HR PRN 3 Days #12 tab 07/05/22 07/13/22 Rx 10-325] carvediloL [Coreg] 6.25 mg PO BID@0800,1600 tab 07/05/22 07/13/22 Rx polyethylene glycoL 3350 17 gm PO DAILY@0800 PRN #0 07/05/22 07/13/22 Rx [Polyethylene Glycol 3350] Vancomycin Oral Solution 125 mg PO Q6HR 14 Days ml 07/06/22 07/13/22 Rx Ammonium Lactate Lotion 1 applic TOPICAL DAILY@79907/13/22 07/13/22 History [Lac-Hydrin 12% Lotion] Esomeprazole Magnesium [NexIUM] 20 mg PO DAILY@199907/13/22 07/13/22 History Multivitamins, Thera [Multivitamin 1 tab PO DAILY@0807/13/22 07/13/22 History (formulary)] fentaNYL 50MCG/HR PATCH [Duragesic 50 mcg TRANSDERM Q72H 07/13/22 07/13/22 History 50MCG/HR] Allergies Allergy/AdvReac Type Severity Reaction Status Date / Time No Known Allergies Allergy Verified 07/13/22 09:12 Physical Exam Vitals: Vital Signs Temp Pulse Resp BP Pulse Ox 07/13/22 09:08 115 H 07/13/22 08:30 97.6 F 84 16 92/77 95 07/13/22 07:32 98.1 F 88 16 100/80 98 07/13/22 06:00 91 15 107/65 96 07/13/22 04:00 97.8 F 82 16 124/71 95 07/13/22 03:00 83 16 118/66 97 07/13/22 01:52 98.2 F 95 16 95/72 92 L Intake and Output 07/12/22 07/13/22 07/13/22 22:59 06:59 14:59 Other: Weight 149.685 kg Results CBC & Chem 7: 07/13/22 02:21 07/13/22 02:21 Labs: Abnormal Lab Results - Last 24 Hours (Table) 07/13/22 07/13/22 Range/Units 02:21 02:21 RBC 2.97 L (3.80-5.40) m/uL Hgb 8.4 L (11.4-16.0) gm/dL Hct 27.9 L (34.0-46.0) % MCHC 30.1 L (31.0-37.0) g/dL RDW 18.4 H (11.5-15.5) % Plt Count 570 H (150-450) k/uL Lymphocytes # 0.3 L (1.0-4.8) k/uL Sodium 135 L (137-145) mmol/L Glucose 113 H (74-99) mg/dL Calcium 7.9 L (8.4-10.2) mg/dL Total Protein 5.4 L (6.3-8.2) g/dL Albumin 2.3 L (3.5-5.0) g/dL Microbiology - Last 24 Hours (Table) 07/13/22 02:22 Anaerobic Culture - Preliminary Abdomen 07/13/22 02:21 Wound Culture - Preliminary Abdomen Assessment and Plan (1) Non-healing ulcer of multiple sites with fat layer exposed Current Visit: No Status: Acute Code(s): L98.492 - NON-PRS CHRONIC ULCER OF SKIN OF SITES W FAT LAYER EXPOSED SNOMED Code(s): 66934623 (2) Soft tissue radionecrosis Current Visit: No Status: Acute Priority: High Code(s): L59.8 - OTH DISRD OF THE SKIN, SUBCU RELATED TO RADIATION; Y84.2 - RADIOLOG PROC/RADIOTHRPY CAUSE ABN REACT/COMPL, W/O MISADVNT SNOMED Code(s): 77959286
--- NOTE | 2022-07-13 10:59 | P.CRDCN ---
History of Present Illness History of present illness: HISTORY OF PRESENTING ILLNESS Patient is a pleasant 62-year-old female with history of Recent CVA on 05/19/2022, persistent atrial fibrillation on Eliquis, uterine cancer undergoing chemotherapy, apparent CAD with prior "blockage with its own bypasses "likely consistent with [employer] from 2019, hypertension, hyperlipidemia, obesity, diabetes mellitus type 2. 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 We are consulted for A fib with RVR. Patient presents to the ER from [facility] for increase pain and worsening wounds in groin and perineal area. She was recently discharged from on the hospital 07/06/22, she was admitted at that time with necrotizing/gangrenous right groin wound/pubis status post debridement of the right groin wound and left pannus with wound VAC placement with surgery. She was stabilized and discharged to [facility]. She denies any chest pain, shortness of breath, palpitations, lightheadedness, dizziness, syncope or near syncope. No symptoms of orthopnea or PND. She is currently in A fib with RVR in the emergency department. DIAGNOSTICS: EKG Atrial fibrillation with rapid ventricular response heart rate 125, nonspecific T-wave abnormalities. Telemetry in the ER revealed atrial fibrillation with rapid ventricular response, HR 115-130s CT abdomen and pelvis reported improvement in left pleural effusion, cardiomegaly, dilated gallbladder, could be gallbladder dysfunction or cholecystitis. Gallbladder increased slightly compared to old exam. Labs, WBC 6.6, hemoglobin 8.4, platelets 570, sodium 135, potassium 4.2, BUN 11, serum creatinine 0.8 Recent echocardiogram 05/19/2022 revealed an EF of 5560 %, mild mitral regurgitation, mild tricuspid regurgitation REVIEW OF SYSTEMS At the time of my exam: CONSTITUTIONAL: Denies fever or chills. CARDIOVASCULAR: +chest pain, no shortness of breath, orthopnea, PND or palpitations. RESPIRATORY: Denies cough. GASTROINTESTINAL: Denies abdominal pain, diarrhea, constipation, nausea or vomiting. MUSCULOSKELETAL: Denies myalgias. NEUROLOGIC: Denies any numbness, headaches, or weakness ENDOCRINE: Denies fatigue, weight change, polydipsia or polyurina. GENITOURINARY: Denies burning, hematuria or urgency with micturation. HEMATOLOGIC:+anemia +bleeding. PHYSICAL EXAMINATION Vital signs reviewed. CONSTITUTIONAL: No apparent distress, obese, ill appearing HEENT: Head is normocephalic. Pupils are equal, round. Sclerae anicteric. Mucous membranes of the mouth are moist. No JVD. CHEST EXAMINATION: Lungs are clear to auscultation. No chest wall tenderness is noted on palpation or with deep breathing. HEART EXAMINATION: Irregular, tachycardic rate and rhythm. S1, S2 heard. No murmurs, gallops or rub. ABDOMEN: Soft, nontender. Positive bowel sounds. EXTREMITIES: 2+ peripheral pulses, no lower extremity edema and no calf tenderness. SKIN: Right groin wound, multiple wounds in perineal area NEUROLOGIC EXAMINATION: Patient is awake, alert and oriented x3. ASSESSMENT Increased right groin and pubis wound pain Persistent atrial fibrillation with RVR, on Eliquis Recent necrotizing/gangrenous right groin wound/pubis, with bleeding s/p debridement and wound VAC 06/29. Recent PICC line catheter tip infection with Klebsiella Recent Klebsiella bacteremia secondary to above Recent C. diff colitis Recent Acute CVA in 05/19/2022 Reported history of CAD with likely [employer] Hypertension Diabetes mellitus type 2 Uterine cancer undergoing chemotherapy with prior significant vaginal bleeding Obesity PLAN Start metoprolol tartrate 50mg BID Stop Carvedilol Continue anticoagulation with eliquis Rest of management per primary Continue cardiac telemetry Further recommendations based on clinical course Nurse practitioner note has been reviewed by physician. Signing provider agrees with the documented findings, assessment, and plan of care. Past Medical History Past Medical History: Atrial Fibrillation, Cancer, Diabetes Mellitus, GERD/Reflux, Hypertension, Thyroid Disorder Additional Past Medical History / Comment(s): Pt states she has had intermittent vaginal bleeding over past one year, NIDDM type II, UTIs, hypothyroid, chronic low back pain, occasional bilateral leg pain at night. Ovarian cancer with chemo and radiation. History of Any Multi-Drug Resistant Organisms: ESBL Date of last positivie culture/infection: 06/27/22 ESBL MDRO Source:: Blood Past Surgical History: Heart Catheterization, Tonsillectomy, Uterine Ablation Additional Past Surgical History / Comment(s): Nasal fracture with surgery, wisdom teeth extractions. Past Anesthesia/Blood Transfusion Reactions: Postoperative Nausea & Vomiting (PONV) Additional Past Anesthesia/Blood Transfusion Reaction / Comment(s): Pt received blood this hospitalization without reaction. Past Psychological History: Depression Smoking Status: Former smoker Past Alcohol Use History: None Reported Past Drug Use History: None Reported - Past Family History Father Family Medical History: Cancer Additional Family Medical History / Comment(s): Father of lung cancer. He was a smoker. Mother Family Medical History: Vascular Disorder Additional Family Medical History / Comment(s): Mother of a cerebral aneurysm at the age of 58 yrs. Medications and Allergies Home Medications Medication Instructions Recorded Confirmed Type Levothyroxine Sodium 200 mcg PO DAILY@0800 10/10/21 07/13/22 History Nitroglycerin Sl Tabs [Nitrostat] 0.4 mg SL Q5M PRN 10/10/21 07/13/22 History Oxybutynin ER [Ditropan Xl] 10 mg PO DAILY@0800 05/18/22 07/13/22 History Acetaminophen Tab [Tylenol] 650 mg PO Q4H PRN 06/22/22 07/13/22 History Acetaminophen/Diphenhydramine 2 tab PO HS PRN 06/22/22 07/13/22 History [Tylenol PM 500-25mg] Apixaban [Eliquis] 5 mg PO BID@0800,1600 06/22/22 07/13/22 History Atorvastatin [Lipitor] 40 mg PO HS@2000 06/22/22 07/13/22 History Docusate [Colace] 100 mg PO BID@0800,1600 06/22/22 07/13/22 History Ensure 1 can PO BID@0800,1600 06/22/22 07/13/22 History Insulin Lispro [humaLOG Kwikpen] See Protocol SQ ACHS 06/22/22 07/13/22 History Nystatin 100,000 Unit/gm Powd 1 applic TOPICAL BID@0800,1600 06/22/22 07/13/22 History [Mycostatin Powder] Pro Stat 1 can PO TID 06/22/22 07/13/22 History Ertapenem [INVanz] 1 gm IVPB Q24H #10 each 07/05/22 07/13/22 Rx Famotidine [Pepcid] 20 mg PO DAILY tab 07/05/22 07/13/22 Rx HYDROcodone/APAP 10-325MG [[place] 1 tab PO Q4HR PRN 3 Days #12 tab 07/05/22 07/13/22 Rx 10-325] carvediloL [Coreg] 6.25 mg PO BID@0800,1600 tab 07/05/22 07/13/22 Rx polyethylene glycoL 3350 17 gm PO DAILY@0800 PRN #0 07/05/22 07/13/22 Rx [Polyethylene Glycol 3350] Vancomycin Oral Solution 125 mg PO Q6HR 14 Days ml 07/06/22 07/13/22 Rx Ammonium Lactate Lotion 1 applic TOPICAL DAILY@79907/13/22 07/13/22 History [Lac-Hydrin 12% Lotion] Esomeprazole Magnesium [NexIUM] 20 mg PO DAILY@199907/13/22 07/13/22 History Multivitamins, Thera [Multivitamin 1 tab PO DAILY@79907/13/22 07/13/22 History (formulary)] fentaNYL 50MCG/HR PATCH [Duragesic 50 mcg TRANSDERM Q72H 07/13/22 07/13/22 History 50MCG/HR] Allergies Allergy/AdvReac Type Severity Reaction Status Date / Time No Known Allergies Allergy Verified 07/13/22 09:12 Physical Exam Vitals: Vital Signs Temp Pulse Resp BP Pulse Ox 07/13/22 09:08 115 H 07/13/22 08:30 97.6 F 84 16 92/77 95 07/13/22 07:32 98.1 F 88 16 100/80 98 07/13/22 06:00 91 15 107/65 96 07/13/22 04:00 97.8 F 82 16 124/71 95 07/13/22 03:00 83 16 118/66 97 07/13/22 01:52 98.2 F 95 16 95/72 92 L Intake and Output 07/12/22 07/13/22 07/13/22 22:59 06:59 14:59 Other: Weight 149.685 kg Results 07/13/22 02:21 07/13/22 02:21 Cardiac Enzymes 07/13/22 Range/Units 02:21 AST 19 (14-36) U/L CBC 07/13/22 Range/Units 02:21 WBC 6.6 (3.8-10.6) k/uL RBC 2.97 L (3.80-5.40) m/uL Hgb 8.4 L (11.4-16.0) gm/dL Hct 27.9 L (34.0-46.0) % Plt Count 570 H (150-450) k/uL Comprehensive Metabolic Panel 07/13/22 Range/Units 02:21 Sodium 135 L (137-145) mmol/L Potassium 4.2 (3.5-5.1) mmol/L Chloride 100 (98-107) mmol/L Carbon Dioxide 24 (22-30) mmol/L BUN 11 (7-17) mg/dL Creatinine 0.80 (0.52-1.04) mg/dL Glucose 113 H (74-99) mg/dL Calcium 7.9 L (8.4-10.2) mg/dL AST 19 (14-36) U/L ALT 10 (4-34) U/L Alkaline Phosphatase 99 (38-126) U/L Total Protein 5.4 L (6.3-8.2) g/dL Albumin 2.3 L (3.5-5.0) g/dL Current Medications Generic Name Dose Route Start Last Admin Trade Name Freq PRN Reason Stop Dose Admin Apixaban 5 mg 07/13/22 08:00 07/13/22 07:42 Apixaban 5 Mg Tab PO 5 mg BID@0800,1600 FANNY Administration Protocol Atorvastatin Calcium 40 mg 07/13/22 20:00 Atorvastatin 40 Mg Tab PO HS@2000 FANNY Carvedilol 6.25 mg 07/13/22 08:00 07/13/22 07:42 Carvedilol 6.25 Mg Tab PO 6.25 mg BID@0800,1600 FANNY Administration Famotidine 20 mg 07/13/22 09:00 07/13/22 08:16 Famotidine 20 Mg Tab PO 20 mg DAILY FANNY Administration Ertapenem 1 gm/ Sodium 50 mls @ 100 mls/hr 07/13/22 09:00 07/13/22 09:12 Chloride IVPB 100 mls/hr DAILY FANNY Administration Protocol Vancomycin HCl 2,250 mg/ 500 mls @ 167 mls/hr 07/13/22 16:00 Sodium Chloride IVPB Q12H FANNY Sodium Chloride 1,000 mls @ 75 mls/hr 07/13/22 06:00 07/13/22 06:25 Saline 0.9% IV 75 mls/hr .[id number] FANNY Administration Amiodarone HCl 150 mg/ 103 mls @ 618 mls/hr 07/13/22 10:20 Dextrose/Water IV 07/13/22 10:29 .Q10M ONE Amiodarone HCl 360 mg/ 200 mls @ 33.333 mls/hr 07/13/22 10:30 Dextrose/Water IV 07/13/22 16:29 .Q6H ONE Protocol 1 MG/MIN Amiodarone HCl 450 mg/ 250 mls @ 16.667 mls/hr 07/13/22 16:30 Dextrose/Water IV 07/14/22 10:29 .Q15H FANNY Protocol 0.5 MG/MIN Levothyroxine Sodium 200 mcg 07/13/22 08:00 07/13/22 07:47 Levothyroxine 100 Mcg Tab PO 200 mcg DAILY@0800 [facility] Administration Morphine Sulfate 4 mg 07/13/22 08:00 07/13/22 10:03 Morphine Sulfate 4 Mg/Ml Syringe IVP 4 mg Q4HR PRN Administration Pain Naloxone HCl 0.2 mg 07/13/22 05:58 Naloxone 0.4 Mg/Ml 1 Ml Vial IV Q2M PRN Opioid Reversal Oxybutynin Chloride 10 mg 07/13/22 08:00 07/13/22 07:42 Oxybutynin 10 Mg Tab.Er.24 PO 10 mg DAILY@0800 [facility] Administration Intake and Output 07/12/22 07/13/22 07/13/22 22:59 06:59 14:59 Other: Weight 149.685 kg 07/13/22 02:21 07/13/22 02:21
[2022-07-13] MEDS: METOPROLOL TARTRATE 50 MG TAB PO SCH ×2 (11:56→19:22)
[2022-07-13] MEDS: VANCOMYCIN ORAL SOLUTION 250 MG/5 ML BOTTLE PO SCH ×2 (11:56→17:21)
[2022-07-13] MEDS ORDERED: DEXTROSE 50% SYRINGE 50 ML IVP PRN ×2 (15:06)
--- NOTE | 2022-07-13 15:11 | P.HPIM ---
History of Present Illness H&P Date: 07/13/22 Chief Complaint: Draining wounds This is a pleasant 62-year-old patient, follows with Dr. Smooth Bob. Chronic stable medical conditions include diabetes, GERD, essential hypertension, hypothyroid. Chronic low back pain. Ovarian cancer treatment for chemo and radiation treatment. September 2021 was having significant vaginal bleeding. 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 No metastatic disease. She was not felt to be surgical candidate and was to receive 3 cycles of carboplatin/Taxol followed by radiation and 3 additional cycles of the above. She completed radiation on 03/14/2022. Started back on the carbotaxol April 03 and was status post cycle 6 day 1 on May 16. May 2022: Stroke found in the left coronary radiata on the posterior aspect of left frontal lobe. Was placed on eliquis for atrial fibrillation. For last 3 months significant wound on the right groin and abdominal pannus. Has had repeated debridement including the latest being on June 29 for necrotic tissue by Dr. Kasper. Was discharged in July 06. On IV vancomycin and IV er tapenem. Discharged to [facility] Patient now returns to the ER with increasing foul discharge from the wounds. Has a strong odor to it. Appetite has decreased. Having couple of bowel m ovements a day. Has a PICC line. Tired. Patient is nonambulatory. Has had some fever and chills. Uncontrolled atrial fibrillation the ER. Review of systems: GEN.: Tired EYES: None HEENT: None NECK: None RESPIRATORY: None CARDIOVASCULAR: None GASTROINTESTINAL: None GENITOURINARY: None MUSCULOSKELETAL: Joint pains LYMPHATICS: None HEMATOLOGICAL: None PSYCHIATRY: Lethargic NEUROLOGICAL: None Past medical history to include: Atrial fibrillation, diabetes, GERD, hypertension, hypothyroid, ovarian cancer with chemo and radiation treatment. Depression. Stroke. Social history: At rehab [facility]. started smoking as a teenager and stopped in 1994. No alcohol. Family history: Father of lung cancer Physical examination: VITAL SIGNS: 98.2, 95, 16, 95/72, 92% room air GENERAL: BMI 53.3, Laying in bed, awake, tired EYES: Pupils equal. Conjunctiva normal. HEENT: External appearance of nose and ears normal, oral cavity dry mucous membranes NECK: JVD unable to assess; masses not palpable. HEART: Heart sounds irregular; slight edema. LUNGS: Respiratory rate normal; distant breath sound. ABDOMEN: Soft, nontender, liver spleen not palpable, no masses palpable. Perianal wounds C wound care notes. PSYCH: Answering questions appropriately MUSCULOSKELETAL:No Clubbing/cyanosis;muscles-grossly intact, evidence of OA DERMATOLOGICAL: Dressing over the wound in the abdominal pannus and in the right groin. See nursing notes for pictures LYMPHATICS: No lymph nodes palpable, in the neck or axilla INVESTIGATIONS, reviewed in the clinical context: White count 6.6 hemoglobin 8.4 platelets 570 potassium 4.2 creatinine 0.8 TSH 3.1 EKG tracing personally reviewed by me-atrial fibrillation. Rate 125 Previous admission: 06/01/2022: BUN 19 creatinine 0.93 MRI brain without contrast: Acute/subacute CVA of the left coronary radiata on the posterior aspect of the left frontal lobe. Nonspecific white matter changes. 2-D echocardiogram: EF 55-60%, severe LVH Assessment and plan: -Acute on Chronic Large wound on the abdominal pannus and right groin: Being fol lowed by Dr. Kasper from general surgery and ID. Patient most recently had deep debridement of necrotic tissue on June 29. Patient was discharged on IV ertapenem and IV vancomycin. Consultation to surgery 90. -Persistent atrial fibrillation, rate uncontrolled Eliquis. Lopressor 50 mg twice a day. Coreg discontinued. Telemetry. Cartilage E consult. -Recent C. diff colitis from recent antibiotics: Complete course Oral vancomycin 125 mg by mouth 4 times a day. -Recent stroke in the left [place] radiata on the posterior aspect of the left frontal lobe. suspected to be embolic from underlying paroxysmal atrial fibrillation, on 05/18/2022 Eliquis -Chronic dysphagia from underlying stroke : Chopped diet -Diabetes mellitus type 2 on oral hypoglycemic Sliding scale. Follow Accu-Cheks -Morbid obesity BMI 53.3 Weight loss measures -GERD Prilosec 20 mg -Essential hypertension, Lopressor -Chronic urinary stress incontinence Ditropan XL 10 mg a day -Hypothyroid Synthroid 200 g a day -Acute on chronic medical debility multifactorial -DO NOT RESUSCITATE Consultation to Gen. surgery, ID, cardiology. Patient placed on Lopressor. Eliquis to continue. Continue with IV vancomycin and IV ertapenem. We will need debridement/cleaning of the wound. Discussed with patient. Sliding scale. Given the complexity and severity of patient's condition expect the patient to be in the hospital at least for 2 overnights Past Medical History Past Medical History: Atrial Fibrillation, Cancer, Diabetes Mellitus, GERD/Reflux, Hypertension, Thyroid Disorder Additional Past Medical History / Comment(s): Pt states she has had intermittent vaginal bleeding over past one year, NIDDM type II, UTIs, hypothyroid, chronic low back pain, occasional bilateral leg pain at night. Ovarian cancer with chemo and radiation. History of Any Multi-Drug Resistant Organisms: ESBL Date of last positivie culture/infection: 06/27/22 ESBL MDRO Source:: Blood Past Surgical History: Heart Catheterization, Tonsillectomy, Uterine Ablation Additional Past Surgical History / Comment(s): Nasal fracture with surgery, wisdom teeth extractions. Past Anesthesia/Blood Transfusion Reactions: Postoperative Nausea & Vomiting (PONV) Additional Past Anesthesia/Blood Transfusion Reaction / Comment(s): Pt received blood this hospitalization without reaction. Past Psychological History: Depression Smoking Status: Former smoker Past Alcohol Use History: None Reported Past Drug Use History: None Reported - Past Family History Father Family Medical History: Cancer Additional Family Medical History / Comment(s): Father of lung cancer. He was a smoker. Mother Family Medical History: Vascular Disorder Additional Family Medical History / Comment(s): Mother of a cerebral aneurysm at the age of 58 yrs. Medications and Allergies Home Medications Medication Instructions Recorded Confirmed Type Levothyroxine Sodium 200 mcg PO DAILY@0800 10/10/21 07/13/22 History Nitroglycerin Sl Tabs [Nitrostat] 0.4 mg SL Q5M PRN 10/10/21 07/13/22 History Oxybutynin ER [Ditropan Xl] 10 mg PO DAILY@0800 05/18/22 07/13/22 History Acetaminophen Tab [Tylenol] 650 mg PO Q4H PRN 06/22/22 07/13/22 History Acetaminophen/Diphenhydramine 2 tab PO HS PRN 06/22/22 07/13/22 History [Tylenol PM 500-25mg] Apixaban [Eliquis] 5 mg PO BID@0800,1600 06/22/22 07/13/22 History Atorvastatin [Lipitor] 40 mg PO HS@199906/22/22 07/13/22 History Docusate [Colace] 100 mg PO BID@0800,1600 06/22/22 07/13/22 History Ensure 1 can PO BID@0800,1600 06/22/22 07/13/22 History Insulin Lispro [humaLOG Kwikpen] See Protocol SQ ACHS 06/22/22 07/13/22 History Nystatin 100,000 Unit/gm Powd 1 applic TOPICAL BID@0800,1600 06/22/22 07/13/22 History [Mycostatin Powder] Pro Stat 1 can PO TID 06/22/22 07/13/22 History Ertapenem [INVanz] 1 gm IVPB Q24H #10 each 07/05/22 07/13/22 Rx Famotidine [Pepcid] 20 mg PO DAILY tab 07/05/22 07/13/22 Rx HYDROcodone/APAP 10-325MG [[place] 1 tab PO Q4HR PRN 3 Days #12 tab 07/05/22 07/13/22 Rx 10-325] carvediloL [Coreg] 6.25 mg PO BID@0800,1600 tab 07/05/22 07/13/22 Rx polyethylene glycoL 3350 17 gm PO DAILY@0800 PRN #0 07/05/22 07/13/22 Rx [Polyethylene Glycol 3350] Vancomycin Oral Solution 125 mg PO Q6HR 14 Days ml 07/06/22 07/13/22 Rx Ammonium Lactate Lotion 1 applic TOPICAL DAILY@0800 07/13/22 07/13/22 History [Lac-Hydrin 12% Lotion] Esomeprazole Magnesium [NexIUM] 20 mg PO DAILY@199907/13/22 07/13/22 History Multivitamins, Thera [Multivitamin 1 tab PO DAILY@0800 07/13/22 07/13/22 History (formulary)] fentaNYL 50MCG/HR PATCH [Duragesic 50 mcg TRANSDERM Q72H 07/13/22 07/13/22 History 50MCG/HR] Allergies Allergy/AdvReac Type Severity Reaction Status Date / Time No Known Allergies Allergy Verified 07/13/22 09:12 Physical Exam Vitals: Vital Signs Temp Pulse Resp BP Pulse Ox 07/13/22 09:08 115 H 07/13/22 08:30 97.6 F 84 16 92/77 95 07/13/22 07:32 98.1 F 88 16 100/80 98 07/13/22 06:00 91 15 107/65 96 07/13/22 04:00 97.8 F 82 16 124/71 95 07/13/22 03:00 83 16 118/66 97 07/13/22 01:52 98.2 F 95 16 95/72 92 L Intake and Output 07/12/22 07/13/22 07/13/22 22:59 06:59 14:59 Other: Weight 149.685 kg Results CBC & Chem 7: 07/13/22 02:21 07/13/22 02:21 Labs: Abnormal Lab Results - Last 24 Hours (Table) 07/13/22 07/13/22 Range/Units 02:21 02:21 RBC 2.97 L (3.80-5.40) m/uL Hgb 8.4 L (11.4-16.0) gm/dL Hct 27.9 L (34.0-46.0) % MCHC 30.1 L (31.0-37.0) g/dL RDW 18.4 H (11.5-15.5) % Plt Count 570 H (150-450) k/uL Lymphocytes # 0.3 L (1.0-4.8) k/uL Sodium 135 L (137-145) mmol/L Glucose 113 H (74-99) mg/dL Calcium 7.9 L (8.4-10.2) mg/dL Total Protein 5.4 L (6.3-8.2) g/dL Albumin 2.3 L (3.5-5.0) g/dL Microbiology - Last 24 Hours (Table) 07/13/22 02:22 Anaerobic Culture - Preliminary Abdomen 07/13/22 02:21 Wound Culture - Preliminary Abdomen
[2022-07-13] MEDS: DOCUSATE 100 MG CAP PO SCH (15:18)
--- NOTE | 2022-07-13 15:56 | XR ---
EXAMINATION TYPE: XR chest 1V portable DATE OF EXAM: 07/13/2022 COMPARISON: 06/27/2022 INDICATION: History of smoking TECHNIQUE: Single frontal view of the chest is obtained. FINDINGS: The heart size is mildly prominent. The pulmonary vasculature is normal. The lungs are clear. IMPRESSION: 1. Cardiomegaly
[2022-07-13] MEDS ORDERED: NON FORMULARY DRUG (Ensure 1 CAN Ml) PO SCH (16:00)
[2022-07-13] MEDS ORDERED: PRO STAT PO SCH (16:00)
[2022-07-13] MEDS ORDERED: AMIODARONE 450 MG in DEXTROSE 5% IN WATER 250 ML IV SCH ×2 (16:30)
[2022-07-13] MEDS: VANCOMYCIN 2,250 MG in SODIUM CHLORIDE 0.9% 500 ML 500 ML IVPB SCH (16:49)
[2022-07-13] MEDS: NYSTATIN 100,000 UNIT/GM POWD 15 GM TOPICAL SCH (16:49)
[2022-07-13] MEDS: INSULIN ASPART (NovoLOG) 100 UNIT/ML VIAL SQ SCH (17:22)
--- NOTE | 2022-07-13 18:36 | P.GSCN ---
History of Present Illness Consult date: 07/13/22 History of present illness: REASON FOR CONSULTATION: Right groin wound HISTORY OF PRESENT ILLNESS: The patient is a 62 year old female recent debridement of large right groin and lower pannus 2 weeks ago. 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 She was hospitalized over 1 week with recent discharge 07/06/22. She had a wound vac but reports she could not tolerate the dressing. She is wet-to-dry. She reports moderate pain with her dressing changes. She was transferred from [facility] to the hospital due to drainage from her wound. She denies fevers or chills. She denies any upper abdominal pain or food intolerance. PAST MEDICAL HISTORY: See list and reviewed PAST SURGICAL HISTORY: See list and reviewed MEDICATIONS: See list and reviewed ALLERGIES: See list and reviewed SOCIAL HISTORY: See list and reviewed FAMILY HISTORY: See list and reviewed REVIEW OF ORGAN SYSTEMS: CONSTITUTIONAL: No fevers or chills. No recent weight loss. Has morbid obesity, BMI 48.9 EYES: Denies any trouble with vision. Wears glasses. HEENT: No difficulties with hearing. No nosebleeds. No difficulty swallowing. RESPIRATORY: Denies pneumonia. Denies any troubles with breathing or dyspnea on exertion. CARDIOVASCULAR: Has hypertensive heart disease. Has hyperlipidemia. Prior cardiac ablation. History of atrial fibrillation. GASTROINTESTINAL: Denies fatty food intolerance. Denies change in bowel habits and gas bloat. Has gastroesophageal reflux disease. Has post-op nausea and vomiting. GENITOURINARY: Denies any blood in urine. Has increased urinary frequency. Recent uterine ovarian cancer diagnosis. NEUROLOGICAL: Denies any numbness or tingling along the distal extremities. No seizure disorders or headaches. Has recent stroke 1 month ago. MUSCULOSKELETAL: Has back pain, stiffness or joint arthritis. SKIN: No current skin cancer. No rash. PSYCHIATRIC: Has depression. No suicidal thoughts. ENDOCRINE: Has hypothyroidism. Has diabetes type II, insulin dependent. HEME/LYMPHATIC: Denies any lumps and bumps around the neck. No recent deep venous thrombosis. On anticoagulant. ALLERGY/IMMUNOLOGY: No immunoglobulin therapy. No immune deficiencies. Recent radiation. BREAST: Denies current breast lumps, pain or nipple discharge. PHYSICAL EXAM: VITALS: Reviewed CONSTITUTIONAL: Well developed and in no acute distress. EYES: Conjuctivae without sclera icterus. Extraocular movements grossly intact. HEAD, EARS, NOSE, THROAT: Moist buccal mucosa. Head is atraumatic, normocephalic. Hears conversational speech. No nasal drainage. NECK: Supple. No JV distention. No thyroidomegaly. RESPIRATORY: Non-labored respirations and equal bilateral excursions. No gross wheezes. CARDIOVASCULAR: Palpable 2+ radial pulses. ABDOMEN: Moderate-sized pannus over 40 pounds. Right groin wound and pannus wound with dressing intact LYMPH: No neck lymphadenopathy. MUSCULOSKELETAL: No clubbing cyanosis. SKIN: Warm and well perfused with good skin turgor. Wound extremely large over 25 x 10 cm in size along the right groin and over 10 cm of the dependent left portion of the pannus. NEUROLOGIC: Cranial nerves II through XII grossly intact. No focal or lateralizing signs. PSYCH: Appropriate affect. Alert and oriented to person, place and time. Displays appropriate insight. CLINCAL LABS: Reviewed. WBC 6.6 on admission. Hemoglobin 8.4 on admission. LFTs normal IMAGING: Independently reviewed. CT of the abdomen and pelvis reviewed without emphysema of the subcutaneous tissue. Gallbladder distended. This is my independent interpretation. ASSESSMENT: 1. Right groin complex wound 2. Panniculitis 3. Morbid obesity due to excess calories, BMI 51.6 4. Uterine cancer status post chemoradiation with radionecrosis 5. Diabetes type 2, insulin-dependent 6. Chronic history atrial fibrillation 7. Chronic anticoagulation PLAN: 1. Patient seen and evaluated. Currently she has wet-to-dry dressings of the pannus. 2. She has significant radionecrosis of the pannus. Continue wet-to-dry dressing. 3. Recommend nutritional supplement Renny twice daily. 4. Recommend wound care consultation. Notified patient that surgical coverage is Dr. Parsons as I will be out of town Past Medical History Past Medical History: Atrial Fibrillation, Cancer, Diabetes Mellitus, GERD/Reflux, Hypertension, Thyroid Disorder Additional Past Medical History / Comment(s): Pt states she has had intermittent vaginal bleeding over past one year, NIDDM type II, UTIs, hypothyroid, chronic low back pain, occasional bilateral leg pain at night. Ovarian cancer with chemo and radiation. History of Any Multi-Drug Resistant Organisms: ESBL Year Discovered:: 06/27/22 ESBL MDRO Source:: Blood Past Surgical History: Heart Catheterization, Tonsillectomy, Uterine Ablation Additional Past Surgical History / Comment(s): Nasal fracture with surgery, wisdom teeth extractions. Past Anesthesia/Blood Transfusion Reactions: Postoperative Nausea & Vomiting (PONV) Additional Past Anesthesia/Blood Transfusion Reaction / Comm: Pt received blood this hospitalization without reaction. Past Psychological History: Depression Smoking Status: Former smoker Past Alcohol Use History: None Reported Past Drug Use History: None Reported - Past Family History Father Family Medical History: Cancer Additional Family Medical History / Comment(s): Father of lung cancer. He was a smoker. Mother Family Medical History: Vascular Disorder Additional Family Medical History / Comment(s): Mother of a cerebral aneurysm at the age of 58 yrs. Medications and Allergies Home Medications Medication Instructions Recorded Confirmed Type Levothyroxine Sodium 200 mcg PO DAILY@0800 10/10/21 07/13/22 History Nitroglycerin Sl Tabs [Nitrostat] 0.4 mg SL Q5M PRN 10/10/21 07/13/22 History Oxybutynin ER [Ditropan Xl] 10 mg PO DAILY@0800 05/18/22 07/13/22 History Acetaminophen Tab [Tylenol] 650 mg PO Q4H PRN 06/22/22 07/13/22 History Acetaminophen/Diphenhydramine 2 tab PO HS PRN 06/22/22 07/13/22 History [Tylenol PM 500-25mg] Apixaban [Eliquis] 5 mg PO BID@0800,1600 06/22/22 07/13/22 History Atorvastatin [Lipitor] 40 mg PO HS@199906/22/22 07/13/22 History Docusate [Colace] 100 mg PO BID@0800,1600 06/22/22 07/13/22 History Ensure 1 can PO BID@0800,1600 06/22/22 07/13/22 History Insulin Lispro [humaLOG Kwikpen] See Protocol SQ ACHS 06/22/22 07/13/22 History Nystatin 100,000 Unit/gm Powd 1 applic TOPICAL BID@0800,1600 06/22/22 07/13/22 History [Mycostatin Powder] Pro Stat 1 can PO TID 06/22/22 07/13/22 History Ertapenem [INVanz] 1 gm IVPB Q24H #10 each 07/05/22 07/13/22 Rx Famotidine [Pepcid] 20 mg PO DAILY tab 07/05/22 07/13/22 Rx HYDROcodone/APAP 10-325MG [Swink 1 tab PO Q4HR PRN 3 Days #12 tab 07/05/22 07/13/22 Rx 10-325] carvediloL [Coreg] 6.25 mg PO BID@0800,1600 tab 07/05/22 07/13/22 Rx polyethylene glycoL 3350 17 gm PO DAILY@0800 PRN #0 07/05/22 07/13/22 Rx [Polyethylene Glycol 3350] Vancomycin Oral Solution 125 mg PO Q6HR 14 Days ml 07/06/22 07/13/22 Rx Ammonium Lactate Lotion 1 applic TOPICAL DAILY@79907/13/22 07/13/22 History [Lac-Hydrin 12% Lotion] Esomeprazole Magnesium [NexIUM] 20 mg PO DAILY@199907/13/22 07/13/22 History Multivitamins, Thera [Multivitamin 1 tab PO DAILY@79907/13/22 07/13/22 History (formulary)] fentaNYL 50MCG/HR PATCH [Duragesic 50 mcg TRANSDERM Q72H 07/13/22 07/13/22 History 50MCG/HR] Allergies Allergy/AdvReac Type Severity Reaction Status Date / Time No Known Allergies Allergy Verified 07/13/22 09:12 Surgical - Exam Vital Signs Temp Pulse Resp BP Pulse Ox 98.2 F 95 16 95/72 92 L 07/13/22 01:52 07/13/22 01:52 07/13/22 01:52 07/13/22 01:52 07/13/22 01:52 Results - Labs 07/13/22 02:21 07/13/22 02:21 Abnormal Lab Results - Last 24 Hours (Table) 07/13/22 07/13/22 Range/Units 02:21 02:21 RBC 2.97 L (3.80-5.40) m/uL Hgb 8.4 L (11.4-16.0) gm/dL Hct 27.9 L (34.0-46.0) % MCHC 30.1 L (31.0-37.0) g/dL RDW 18.4 H (11.5-15.5) % Plt Count 570 H (150-450) k/uL Lymphocytes # 0.3 L (1.0-4.8) k/uL Sodium 135 L (137-145) mmol/L Glucose 113 H (74-99) mg/dL Calcium 7.9 L (8.4-10.2) mg/dL Total Protein 5.4 L (6.3-8.2) g/dL Albumin 2.3 L (3.5-5.0) g/dL Microbiology - Last 24 Hours (Table) 07/13/22 17:33 Blood Culture Gram Stain - Preliminary Blood 07/13/22 02:25 Blood Culture - Final Blood 07/13/22 16:35 Blood Culture Gram Stain - Preliminary Blood 07/13/22 02:10 Blood Culture - Final Blood 07/13/22 02:21 Gram Stain - Preliminary Abdomen Wound Culture - Preliminary 07/13/22 02:22 Anaerobic Culture - Preliminary Abdomen Diabetes panel 07/13/22 Range/Units 02:21 Sodium 135 L (137-145) mmol/L Potassium 4.2 (3.5-5.1) mmol/L Chloride 100 (98-107) mmol/L Carbon Dioxide 24 (22-30) mmol/L BUN 11 (7-17) mg/dL Creatinine 0.80 (0.52-1.04) mg/dL Glucose 113 H (74-99) mg/dL Calcium 7.9 L (8.4-10.2) mg/dL AST 19 (14-36) U/L ALT 10 (4-34) U/L Alkaline Phosphatase 99 (38-126) U/L Total Protein 5.4 L (6.3-8.2) g/dL Albumin 2.3 L (3.5-5.0) g/dL Thyroid panel 07/13/22 Range/Units 02:21 TSH 3.190 (0.465-4.680) mIU/L Calcium panel 07/13/22 Range/Units 02:21 Calcium 7.9 L (8.4-10.2) mg/dL Albumin 2.3 L (3.5-5.0) g/dL Pituitary panel 07/13/22 07/13/22 Range/Units 02:21 02:21 Sodium 135 L (137-145) mmol/L Potassium 4.2 (3.5-5.1) mmol/L Chloride 100 (98-107) mmol/L Carbon Dioxide 24 (22-30) mmol/L BUN 11 (7-17) mg/dL Creatinine 0.80 (0.52-1.04) mg/dL Glucose 113 H (74-99) mg/dL Calcium 7.9 L (8.4-10.2) mg/dL TSH 3.190 (0.465-4.680) mIU/L Adrenal panel 07/13/22 Range/Units 02:21 Sodium 135 L (137-145) mmol/L Potassium 4.2 (3.5-5.1) mmol/L Chloride 100 (98-107) mmol/L Carbon Dioxide 24 (22-30) mmol/L BUN 11 (7-17) mg/dL Creatinine 0.80 (0.52-1.04) mg/dL Glucose 113 H (74-99) mg/dL Calcium 7.9 L (8.4-10.2) mg/dL Total Bilirubin 0.5 (0.2-1.3) mg/dL AST 19 (14-36) U/L ALT 10 (4-34) U/L Alkaline Phosphatase 99 (38-126) U/L Total Protein 5.4 L (6.3-8.2) g/dL Albumin 2.3 L (3.5-5.0) g/dL
[2022-07-13] MEDS: PANTOPRAZOLE 40 MG TABLET PO SCH (19:21)
[2022-07-13] MEDS: HYDROcodone/APAP 10-325MG 1 EACH TAB PO PRN (19:21)
[2022-07-13] MEDS: ATORVASTATIN 40 MG TAB PO SCH (19:24)
[2022-07-13 20:23] LABS: Glucose,Whole Blood 131 mg/dL (70-110)
[2022-07-14] MEDS: MORPHINE SULFATE 4 MG/ML SYRINGE IVP PRN ×3 (00:15→18:16)
[2022-07-14] MEDS: DILTIAZEM ORAL 30 MG TAB PO SCH ×4 (01:01→22:58)
[2022-07-14] MEDS: VANCOMYCIN ORAL SOLUTION 250 MG/5 ML BOTTLE PO SCH ×5 (01:04→22:58)
[2022-07-14] MEDS: VANCOMYCIN 2,250 MG in SODIUM CHLORIDE 0.9% 500 ML 500 ML IVPB SCH ×2 (03:45→16:46)
[2022-07-14 07:01] LABS: Glucose,Whole Blood 110 mg/dL (70-110)
[2022-07-14] MEDS: INSULIN ASPART (NovoLOG) 100 UNIT/ML VIAL SQ SCH ×3 (07:57→17:20)
[2022-07-14] MEDS ORDERED: METOPROLOL TARTRATE 50 MG TAB PO SCH (09:00)
--- NOTE | 2022-07-14 09:15 | P.PN ---
Subjective Progress Note Date: 07/14/22 This is Héctor Gutierrez NP, I'm dictating on behalf of Dr. Mcpherson's H&P and A&P. Patient was interviewed and examined. Patient is a pleasant 62-year-old female who we were consulted on for A. fib with RVR. Patient reports that she is feeling okay today. Her heart rate appears controlled at this time. Patient is currently on both Cardizem and metoprolol, with a lower blood pressure that restricts us from making dramatic changes throughout meds. She states that she has no shortness of breath, heart palpitations, or any chest pain today. GENERAL: Well-appearing, well-nourished and in no acute distress. NECK: Supple without JVD or thyromegaly. LUNGS: Breath sounds clear to auscultation bilaterally. Respiration equal and unlabored. No wheezes, rales or rhonchi. HEART: Regular rate and rhythm without murmurs, rubs or gallops. S1 and S2 heard. EXTREMITIES: Normal range of motion, no edema. No clubbing or cyanosis. Peripheral pulses intact and strong. VITALS: Temp 98.4, pulse 85, respirations 18, blood pressure 96/55, O2 saturation 96% on room air TELEMETRY: A. fib with controlled ventricular rate LABS: White count 6.6, hemoglobin 8.4, platelets 570, sodium 135, potassium 4.2, BUN 11, creatinine 0.80, TSH 3.190 IMPRESSION: 1. A. fib with RVR 2. CAD 3. Hypertension 4. Type 2 diabetes 5. Obesity PLAN: Continue metoprolol at 50 mg twice a day Continue anticoagulation with Eliquis Rest of management per primary Thank you for allowing us to participate in the care of this patient. If further recommendations are needed please do not hesitate to reconsult us. Objective - Vital Signs Vital signs: Vital Signs Temp 98.4 F 07/14/22 08:13 Pulse 85 07/14/22 08:13 Resp 18 07/14/22 08:13 BP 96/55 07/14/22 08:13 Pulse Ox 96 07/14/22 08:13 FiO2 Intake & Output 07/13/22 07/14/22 07/14/22 18:59 06:59 18:59 Intake Total 900 Output Total 175 Balance 725 Weight 145.15 kg Intake: Intake, IV Titration 900 Amount Sodium Chloride 0.9% 1, 900 000 ml @ 75 mls/hr IV . [id number] [facility] Rx#:[id number] Output: Urine 175 Other: Voiding Method Indwelling Catheter - Labs CBC & Chem 7: 07/13/22 02:21 07/13/22 02:21 Labs: Abnormal Lab Results - Last 24 Hours (Table) 07/13/22 Range/Units 20:21 POC Glucose (mg/dL) 131 H (70-110) mg/dL Microbiology - Last 24 Hours (Table) 07/13/22 02:21 Gram Stain - Preliminary Abdomen Wound Culture - Preliminary Pseudomonas spec Gram Neg Bacilli 07/13/22 16:35 Blood Culture Gram Stain - Preliminary Blood Blood Culture - Preliminary Enterococcus faecalis Staphylococcus epidermidis 07/13/22 17:33 Blood Culture Gram Stain - Preliminary Blood 07/13/22 02:25 Blood Culture - Final Blood 07/13/22 02:10 Blood Culture - Final Blood 07/13/22 02:22 Anaerobic Culture - Preliminary Abdomen
[2022-07-14] MEDS: APIXABAN 5 MG TAB PO SCH ×2 (09:17→16:46)
[2022-07-14] MEDS: LEVOTHYROXINE 100 MCG TAB PO SCH (09:17)
[2022-07-14] MEDS: DOCUSATE 100 MG CAP PO SCH ×3 (09:17→16:45)
[2022-07-14] MEDS: FAMOTIDINE 20 MG TAB PO SCH (09:17)
[2022-07-14] MEDS: MULTIVITAMINS, THERA 1 EACH TAB PO SCH (09:17)
[2022-07-14] MEDS: NYSTATIN 100,000 UNIT/GM POWD 15 GM TOPICAL SCH ×2 (09:18→16:47)
[2022-07-14] MEDS: OXYBUTYNIN 10 MG TAB.ER.24 PO SCH (09:18)
[2022-07-14] MEDS: SODIUM CHLORIDE 0.9% 1,000 ML IV SCH ×2 (09:27→18:16)
[2022-07-14] MEDS: ERTAPENEM 1 GM in SODIUM CHLORIDE 0.9% 50 ML IVPB SCH (10:38)
[2022-07-14] MEDS: AMMONIUM LACTATE 12% LOTION 225 GM BTL TOPICAL SCH (11:12)
--- NOTE | 2022-07-14 11:38 | P.PN ---
Subjective Progress Note Date: 07/14/22 Principal diagnosis: Abdominal wound Patient says her pain is about the same today. Pain is mostly during dressing changes. She is afebrile. White blood cell count yesterday was normal. Infectious disease has been consulted. CAT scan reviewed. Bulk of the patient's wound site not included on that study. Objective - Vital Signs Vital signs: Vital Signs Temp 98.4 F 07/14/22 08:13 Pulse 85 07/14/22 08:13 Resp 18 07/14/22 08:13 BP 96/55 07/14/22 08:13 Pulse Ox 96 07/14/22 08:13 FiO2 Intake & Output 07/13/22 07/14/22 07/14/22 18:59 06:59 18:59 Intake Total 900 Output Total 175 Balance 725 Weight 145.15 kg Intake: Intake, IV Titration 900 Amount Sodium Chloride 0.9% 1, 900 000 ml @ 75 mls/hr IV . [id number] [facility] Rx#:[id number] Output: Urine 175 Other: Voiding Method Indwelling Catheter - Exam Patient with 2 large wounds one involving the right groin which is clean with excellent granulation tissue throughout measuring approximately 25 cm x 10 cm, the dependent portion of the right pannus with tenderness and ischemic appearing fat present at the wound, no erythema or fluctuance noted - Labs CBC & Chem 7: 07/13/22 02:21 07/13/22 02:21 Labs: Abnormal Lab Results - Last 24 Hours (Table) 07/13/22 Range/Units 20:21 POC Glucose (mg/dL) 131 H (70-110) mg/dL Microbiology - Last 24 Hours (Table) 07/13/22 02:21 Gram Stain - Preliminary Abdomen Wound Culture - Preliminary Pseudomonas spec Gram Neg Bacilli 07/13/22 16:35 Blood Culture Gram Stain - Preliminary Blood Blood Culture - Preliminary Enterococcus faecalis Staphylococcus epidermidis 07/13/22 17:33 Blood Culture Gram Stain - Preliminary Blood 07/13/22 02:25 Blood Culture - Final Blood 07/13/22 02:10 Blood Culture - Final Blood 07/13/22 02:22 Anaerobic Culture - Preliminary Abdomen Assessment and Plan (1) Open abdominal wall wound Narrative/Plan: Patient with complex wounds involving the right groin and the pannus. The patient's pannus is where most of her tenderness is present and the patient's fat is indurated and has a somewhat ischemic appearance. This is certainly a complex issue and we discussed the options of possible surgery care referral for plastic surgery evaluation. Continue antibiotics for now. Await infectious disease evaluation. Current Visit: Yes Status: Acute Code(s): S31.109A - UNSP OPN WND ABD WALL, UNSP Q W/O PENET PERIT CAV, INIT SNOMED Code(s): 165982742
[2022-07-14 11:44] LABS: Basophils # (A) 0.07 X 10*3/uL (0.00-0.10); Basophils % (A) 0.9 %; Eosinophils # (A) 0.44 X 10*3/uL (0.04-0.35); Eosinophils % (A) 5.5 %; HCT 25.3 % (37.2-46.3); HGB 7.4 g/dL (12.0-15.0); Immature Grans, Automated 0.3 %; Lymphocytes # (A) 0.41 X 10*3/uL (0.90-5.00); Lymphocytes % (A) 5.2 %; MCH 28.4 pg (27.0-32.0); MCHC 29.2 g/dL (32.0-37.0); MCV 96.9 fL (80.0-97.0); Mean Platelet Volume 9.4 fL (9.5-12.2); Monocytes # (A) 1.06 X 10*3/uL (0.20-1.00); Monocytes % (A) 13.4 %; NRBC Per 100 WBC 0 /100 WBCS (0.0-0.0); Neutrophils # (A) 5.94 X 10*3/uL (1.80-7.70); Neutrophils % (A) 74.7 %; Platelet Count 433 X 10*3/uL (140-440); RBC 2.61 X 10*6/uL (4.10-5.20); WBC 7.94 X 10*3/uL (4.50-10.00)
[2022-07-14 12:03] LABS: African American GFR (CKD) 81.8 (60.0-200.0); Anion Gap 11.4 mmol/L (10.00-18.00); BUN/Creat Ratio 12.03 Ratio (12.00-20.00); Blood Urea Nitrogen 10.5 mg/dL (9.0-27.0); Calcium 7.9 mg/dL (8.7-10.3); Carbon Dioxide 22.1 mmol/L (20.0-27.5); Non-African American GFR(CKD) 70.6 (60.0-200.0); Potassium 4.9 mmol/L (3.5-5.5)
[2022-07-14 12:25] LABS: Glucose,Whole Blood 135 mg/dL (70-110)
[2022-07-14 17:17] LABS: Glucose,Whole Blood 143 mg/dL (70-110)
--- NOTE | 2022-07-14 17:59 | P.PN ---
Progress Note - Text Progress Note Date: 07/14/22 Chief Complaint: Draining wounds This is a pleasant 62-year-old patient, follows with Dr. Smooth Bob. Chronic stable medical conditions include diabetes, GERD, essential hypertension, hypothyroid. Chronic low back pain. Ovarian cancer treatment for chemo and radiation treatment. September 2021 was having significant vaginal bleeding. 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 No metastatic disease. She was not felt to be surgical candidate and was to receive 3 cycles of carboplatin/Taxol followed by radiation and 3 additional cycles of the above. She completed radiation on 03/14/2022. Started back on the carbotaxol April 03 and was status post cycle 6 day 1 on May 16. May 2022: Stroke found in the left coronary radiata on the posterior aspect of left frontal lobe. Was placed on eliquis for atrial fibrillation. For last 3 months significant wound on the right groin and abdominal pannus. Has had repeated debridement including the latest being on June 29 for necrotic tissue by Dr. Kasper. Was discharged in July 06. On IV vancomycin and IV ertapenem. Discharged to [facility] Patient now returns to the ER with increasing foul discharge from the wounds. Has a strong odor to it. Appetite has decreased. Having couple of bowel movements a day. Has a PICC line. Tired. Patient is nonambulatory. Has had some fever and chills. Uncontrolled atrial fibrillation the ER. Admitted with worsening wound on the abdomen pannus in the right groin. Infected. In uncontrolled atrial flutter. Started on IV vancomycin and IV ert apenem. Heart controlled rate medications adjusted. July 14: Laying in bed. Having some pain at the wound site. Heart rate better controlled. On IV antibiotics. Wound care. Active Medications Acetaminophen (Acetaminophen Tab 325 Mg Tab) 650 mg PO Q4H PRN PRN Reason: Fever Hydrocodone Bitart/Acetaminophen (Hydrocodone/Apap 10-325mg 1 Each Tab) 1 each PO Q4HR PRN PRN Reason: Pain Last Admin: 07/13/22 19:21 Dose: 1 each Apixaban (Apixaban 5 Mg Tab) 5 mg PO BID@0800,1600 FANNY; Protocol Last Admin: 07/14/22 16:46 Dose: 5 mg Atorvastatin Calcium (Atorvastatin 40 Mg Tab) 40 mg PO HS@2000 [facility] Last Admin: 07/13/22 19:24 Dose: 40 mg Dextrose/Water (Dextrose 50% Syringe 50 Ml) 25 ml IVP PER PROTOCOL PRN; Protocol PRN Reason: Hypoglycemia Dextrose/Water (Dextrose 50% Syringe 50 Ml) 50 ml IVP PER PROTOCOL PRN; Protocol PRN Reason: Hypoglycemia Diltiazem HCl (Diltiazem Oral 30 Mg Tab) 30 mg PO TID [facility] Last Admin: 07/14/22 16:46 Dose: 30 mg Docusate Sodium (Docusate 100 Mg Cap) 100 mg PO BID@0800,1600 [facility] Last Admin: 07/14/22 16:45 Dose: Not Given Famotidine (Famotidine 20 Mg Tab) 20 mg PO DAILY [facility] Last Admin: 07/14/22 09:17 Dose: 20 mg Fentanyl (Fentanyl 50mcg/Hr Patch) 1 patch TRANSDERM Q72H [facility]; Protocol Ertapenem 1 gm/ Sodium (Chloride) 50 mls @ 100 mls/hr IVPB DAILY [facility]; Protocol Last Admin: 07/14/22 10:38 Dose: 100 mls/hr Vancomycin HCl 2,250 mg/ (Sodium Chloride) 500 mls @ 167 mls/hr IVPB Q12H [facility] Last Admin: 07/14/22 16:46 Dose: 167 mls/hr Sodium Chloride (Saline 0.9%) 1,000 mls @ 75 mls/hr IV .[id number] [facility] Last Admin: 07/14/22 09:27 Dose: Not Given Insulin Aspart (Insulin Aspart (Novolog) 100 Unit/Ml Vial) 0 unit SQ AC-TID [facility]; Protocol Last Admin: 07/14/22 17:20 Dose: Not Given Lactic Acid (Ammonium Lactate 12% Lotion 225 Gm Btl) 1 applic TOPICAL DAILY@0800 [facility]; Protocol Last Admin: 07/14/22 11:12 Dose: Not Given Levothyroxine Sodium (Levothyroxine 100 Mcg Tab) 200 mcg PO DAILY@0800 [facility] Last Admin: 07/14/22 09:17 Dose: 200 mcg Metoprolol Tartrate (Metoprolol Tartrate 50 Mg Tab) 50 mg PO BID [facility] Miscellaneous Information (Vancomycin Trough Due 1 Each Misc) 0 each MISCELLANE DIRECTED ONE Stop: 07/15/22 15:01 Morphine Sulfate (Morphine Sulfate 4 Mg/Ml Syringe) 4 mg IVP Q4HR PRN PRN Reason: Pain Last Admin: 07/14/22 11:00 Dose: 4 mg Multivitamins (Multivitamins, Thera 1 Each Tab) 1 each PO DAILY@0800 [facility] Last Admin: 07/14/22 09:17 Dose: 1 each Naloxone HCl (Naloxone 0.4 Mg/Ml 1 Ml Vial) 0.2 mg IV Q2M PRN PRN Reason: Opioid Reversal Nitroglycerin (Nitroglycerin Sl Tabs 0.4 Mg Tab) 0.4 mg SUBLINGUAL Q5M PRN PRN Reason: Chest Pain Nystatin (Nystatin 100,000 Unit/Gm Powd 15 Gm) 1 applic TOPICAL BID@0800,1600 [facility]; Protocol Last Admin: 07/14/22 16:47 Dose: 1 applic Oxybutynin Chloride (Oxybutynin 10 Mg Tab.Er.24) 10 mg PO DAILY@0800 [facility] Last Admin: 07/14/22 09:18 Dose: 10 mg Pantoprazole Sodium (Pantoprazole 40 Mg Tablet) 40 mg PO DAILY@2000 [facility] Last Admin: 07/13/22 19:21 Dose: 40 mg Vancomycin HCl (Vancomycin Oral Solution 250 Mg/5 Ml Bottle) 125 mg PO Q6HR [facility]; Protocol Stop: 07/20/22 23:00 Last Admin: 07/14/22 17:25 Dose: 125 mg Past medical history to include: Atrial fibrillation, diabetes, GERD, hypertension, hypothyroid, ovarian cancer with chemo and radiation treatment. Depression. Stroke. Social history: At [facility]. started smoking as a teenager and stopped in 1994. No alcohol. Family history: Father of lung cancer Physical examination: VITAL SIGNS: 99.4, 99, 18, 109/75, 96% room air GENERAL: Laying in bed, awake, tired EYES: Pupils equal. Conjunctiva normal. HEENT: External appearance of nose and ears normal, oral cavity dry mucous membranes NECK: JVD unable to assess; masses not palpable. HEART: Heart sounds irregular; slight edema. LUNGS: Respiratory rate normal; distant breath sound. ABDOMEN: Soft, nontender, liver spleen not palpable, no masses palpable. Perianal wounds C wound care notes. PSYCH: Answering questions appropriately MUSCULOSKELETAL:No Clubbing/cyanosis;muscles-grossly intact, evidence of OA DERMATOLOGICAL: Dressing over the wound in the abdominal pannus and in the right groin. See nursing notes for pictures INVESTIGATIONS, reviewed in the clinical context: July 14: WBC 7.9 hemoglobin 10.4 patriots 133 potassium 4.9 creatinine 0.9 White count 6.6 hemoglobin 8.4 platelets 570 potassium 4.2 creatinine 0.8 TSH 3.1 EKG tracing personally reviewed by me-atrial fibrillation. Rate 125 Previous admission: 06/01/2022: BUN 19 creatinine 0.93 MRI brain without contrast: Acute/subacute CVA of the left coronary radiata on the posterior aspect of the left frontal lobe. Nonspecific white matter changes. 2-D echocardiogram: EF 55-60%, severe LVH Assessment and plan: -Acute on Chronic Large wound on the abdominal pannus and right groin: Being followed by Dr. Kasper from general surgery and ID. Patient most recently had deep debridement of necrotic tissue on June 29. Patient was discharged on IV ertapenem and IV vancomycin.: Not improving Follow with surgery. On IV ertapenem and IV vancomycin. -Persistent atrial fibrillation, ratecontrolled Eliquis. Lopressor 50 mg twice a day. Coreg discontinued. Cardizem 30 mg 3 times a day started today. -Recent C. diff colitis from recent antibiotics: Complete course Oral vancomycin 125 mg by mouth 4 times a day. -Recent stroke in the left [place]ston radiata on the posterior aspect of the left frontal lobe. suspected to be embolic from underlying paroxysmal atrial fibrillation, on 05/18/2022 Eliquis -Chronic dysphagia from underlying stroke : Chopped diet -Diabetes mellitus type 2 on oral hypoglycemic Sliding scale. Follow Accu-Cheks -Normocytic of anemia of chronic disease -Morbid obesity BMI 53.3 Weight loss measures -GERD Prilosec 20 mg -Essential hypertension, Lopressor, Cardizem -Chronic urinary stress incontinence Ditropan XL 10 mg a day -Hypothyroid Synthroid 200 g a day -Acute on chronic medical debility multifactorial -DO NOT RESUSCITATE On IV vancomycin and IV ertapenem. Follow with surgery. Cardizem by mouth a dded. Heart rate but a controlled. Other medications to continue. Discussed with patient.
[2022-07-14] MEDS: ATORVASTATIN 40 MG TAB PO SCH (20:17)
[2022-07-14] MEDS: PANTOPRAZOLE 40 MG TABLET PO SCH (20:18)
[2022-07-14] MEDS: METOPROLOL TARTRATE 50 MG TAB PO SCH (20:18)
[2022-07-14] MEDS: HYDROcodone/APAP 10-325MG 1 EACH TAB PO PRN (20:19)
[2022-07-14 20:26] LABS: Glucose,Whole Blood 160 mg/dL (70-110)
[2022-07-15] MEDS: MORPHINE SULFATE 4 MG/ML SYRINGE IVP PRN ×3 (01:40→12:46)
[2022-07-15] MEDS: VANCOMYCIN 2,250 MG in SODIUM CHLORIDE 0.9% 500 ML 500 ML IVPB SCH ×2 (04:12→17:53)
[2022-07-15] MEDS: VANCOMYCIN ORAL SOLUTION 250 MG/5 ML BOTTLE PO SCH ×3 (05:41→17:37)
[2022-07-15 07:20] LABS: Glucose,Whole Blood 122 mg/dL (70-110)
[2022-07-15] MEDS: INSULIN ASPART (NovoLOG) 100 UNIT/ML VIAL SQ SCH ×3 (07:25→17:27)
[2022-07-15] MEDS: MULTIVITAMINS, THERA 1 EACH TAB PO SCH (08:25)
[2022-07-15] MEDS: LEVOTHYROXINE 100 MCG TAB PO SCH (08:25)
[2022-07-15] MEDS: METOPROLOL TARTRATE 50 MG TAB PO SCH ×2 (08:25→19:53)
[2022-07-15] MEDS: ERTAPENEM 1 GM in SODIUM CHLORIDE 0.9% 50 ML IVPB SCH (08:26)
[2022-07-15] MEDS: FAMOTIDINE 20 MG TAB PO SCH (08:26)
[2022-07-15] MEDS: APIXABAN 5 MG TAB PO SCH ×2 (08:26→15:36)
[2022-07-15] MEDS: AMMONIUM LACTATE 12% LOTION 225 GM BTL TOPICAL SCH (08:27)
[2022-07-15] MEDS: OXYBUTYNIN 10 MG TAB.ER.24 PO SCH (08:27)
[2022-07-15] MEDS: DILTIAZEM ORAL 30 MG TAB PO SCH ×3 (08:27→21:24)
[2022-07-15] MEDS: DOCUSATE 100 MG CAP PO SCH ×2 (08:28→15:36)
[2022-07-15] MEDS: NYSTATIN 100,000 UNIT/GM POWD 15 GM TOPICAL SCH ×2 (08:28→15:40)
--- NOTE | 2022-07-15 09:20 | P.CONS ---
History of Present Illness - Reason for Consult Consult date: 07/14/22 - History of Present Illness Patient is a 62-year-old female morbidly obese with multiple comorbidity in this patient do have a history of uterine cancer status post chemoradiation in this patient developed significant radiation necrosis of the skin right groin area patient did have a extensive debridement with local cultures were positive for ESBL Klebsiella for which the patient has completed her IV antibiotic therapy subsequently developing a C. difficile colitis and recently developing midline infection with ESBL bacteremia catheter was positive blood culture repeat was negative patient subsequently got another midline and was discharged back to the [facility] on IV Invanz as well as oral vancomycin and local wound care with the wound VAC patient has been brought back to the hospital yesterday morning for worsening of her wound patient denies having any chest pain no shortness of breath or cough no nausea no vomiting and denies having any worsening diarrhea patient on presentation to the hospital was afebrile and no fever have been recorded subsequently patient did have a normal white count kidney function has been normal patient did have abdominal cultures obtained which not showing Pseudomonas patient is blood cultures growing Enterococcus infectious disease was consulted for further management of antibiotic therapy patient is currently on Invanz and vancomycin Past Medical History Past Medical History: Atrial Fibrillation, Cancer, Diabetes Mellitus, GERD/Reflux, Hypertension, Thyroid Disorder Additional Past Medical History / Comment(s): Pt states she has had intermittent vaginal bleeding over past one year, NIDDM type II, UTIs, hypothyroid, chronic low back pain, occasional bilateral leg pain at night. Ovarian cancer with chemo and radiation. History of Any Multi-Drug Resistant Organisms: ESBL Year Discovered:: 06/27/22 ESBL MDRO Source:: Blood Past Surgical History: Heart Catheterization, Tonsillectomy, Uterine Ablation Additional Past Surgical History / Comment(s): Nasal fracture with surgery, wisdom teeth extractions. Past Anesthesia/Blood Transfusion Reactions: Postoperative Nausea & Vomiting (PONV) Additional Past Anesthesia/Blood Transfusion Reaction / Comm: Pt received blood this hospitalization without reaction. Past Psychological History: Depression Smoking Status: Former smoker Past Alcohol Use History: None Reported Past Drug Use History: None Reported - Past Family History Father Family Medical History: Cancer Additional Family Medical History / Comment(s): Father of lung cancer. He was a smoker. Mother Family Medical History: Vascular Disorder Additional Family Medical History / Comment(s): Mother of a cerebral aneurysm at the age of 58 yrs. Medications and Allergies Home Medications Medication Instructions Recorded Confirmed Type Levothyroxine Sodium 200 mcg PO DAILY@0800 10/10/21 07/13/22 History Nitroglycerin Sl Tabs [Nitrostat] 0.4 mg SL Q5M PRN 10/10/21 07/13/22 History Oxybutynin ER [Ditropan Xl] 10 mg PO DAILY@0800 05/18/22 07/13/22 History Acetaminophen Tab [Tylenol] 650 mg PO Q4H PRN 06/22/22 07/13/22 History Acetaminophen/Diphenhydramine 2 tab PO HS PRN 06/22/22 07/13/22 History [Tylenol PM 500-25mg] Apixaban [Eliquis] 5 mg PO BID@0800,1600 06/22/22 07/13/22 History Atorvastatin [Lipitor] 40 mg PO HS@2000 06/22/22 07/13/22 History Docusate [Colace] 100 mg PO BID@0800,1600 06/22/22 07/13/22 History Ensure 1 can PO BID@0800,1600 06/22/22 07/13/22 History Insulin Lispro [humaLOG Kwikpen] See Protocol SQ ACHS 06/22/22 07/13/22 History Nystatin 100,000 Unit/gm Powd 1 applic TOPICAL BID@0800,1600 06/22/22 07/13/22 History [Mycostatin Powder] Pro Stat 1 can PO TID 06/22/22 07/13/22 History Ertapenem [INVanz] 1 gm IVPB Q24H #10 each 07/05/22 07/13/22 Rx Famotidine [Pepcid] 20 mg PO DAILY tab 07/05/22 07/13/22 Rx HYDROcodone/APAP 10-325MG [[place] 1 tab PO Q4HR PRN 3 Days #12 tab 07/05/22 07/13/22 Rx 10-325] carvediloL [Coreg] 6.25 mg PO BID@0800,1600 tab 07/05/22 07/13/22 Rx polyethylene glycoL 3350 17 gm PO DAILY@0800 PRN #0 07/05/22 07/13/22 Rx [Polyethylene Glycol 3350] Vancomycin Oral Solution 125 mg PO Q6HR 14 Days ml 07/06/22 07/13/22 Rx Ammonium Lactate Lotion 1 applic TOPICAL DAILY@79907/13/22 07/13/22 History [Lac-Hydrin 12% Lotion] Esomeprazole Magnesium [NexIUM] 20 mg PO DAILY@199907/13/22 07/13/22 History Multivitamins, Thera [Multivitamin 1 tab PO DAILY@79907/13/22 07/13/22 History (formulary)] fentaNYL 50MCG/HR PATCH [Duragesic 50 mcg TRANSDERM Q72H 07/13/22 07/13/22 History 50MCG/HR] Allergies Allergy/AdvReac Type Severity Reaction Status Date / Time No Known Allergies Allergy Verified 07/13/22 09:12 Physical Exam Vitals: Vital Signs Temp Pulse Pulse Pulse Resp BP BP 07/14/22 08:13 98.4 F 85 18 07/14/22 05:00 97.7 F 80 18 99/57 07/13/22 21:00 97.7 F 137 H 20 112/58 07/13/22 17:27 98.1 F 103 H 106 H 16 115/75 115/75 07/13/22 16:44 98.2 F 120 H 120 H 16 112/75 112/72 07/13/22 15:12 98.8 F 130 H 130 H 16 111/62 111/62 07/13/22 12:57 98.4 F 146 H 18 132/116 07/13/22 12:12 97.7 F 135 H 18 109/73 07/13/22 12:00 98.2 F 118 H 18 114/70 07/13/22 11:58 124 H 18 114/80 07/13/22 11:01 124 H 18 106/87 BP Pulse Ox 07/14/22 08:13 96/55 96 07/14/22 05:00 96 07/13/22 21:00 96 07/13/22 17:27 98 07/13/22 16:44 95 07/13/22 15:12 97 07/13/22 12:57 97 07/13/22 12:12 96 07/13/22 12:00 98 07/13/22 11:58 97 07/13/22 11:01 96 Intake and Output 07/13/22 07/14/22 07/14/22 22:59 06:59 14:59 Intake Total 900 Output Total 175 Balance 725 Intake: Intake, IV Titration 900 Amount Sodium Chloride 0.9% 1, 900 000 ml @ 75 mls/hr IV . [id number] [facility] Rx#:[id number] Output: Urine 175 Other: Voiding Method Indwelling Catheter Weight 145.15 kg Results CBC & Chem 7: 07/14/22 07:20 07/15/22 05:25 Labs: Abnormal Lab Results - Last 24 Hours (Table) 07/13/22 Range/Units 20:21 POC Glucose (mg/dL) 131 H (70-110) mg/dL Microbiology - Last 24 Hours (Table) 07/13/22 02:21 Gram Stain - Preliminary Abdomen Wound Culture - Preliminary Pseudomonas spec Gram Neg Bacilli 07/13/22 16:35 Blood Culture Gram Stain - Preliminary Blood Blood Culture - Preliminary Enterococcus faecalis Staphylococcus epidermidis 07/13/22 17:33 Blood Culture Gram Stain - Preliminary Blood 07/13/22 02:25 Blood Culture - Final Blood 07/13/22 02:10 Blood Culture - Final Blood 07/13/22 02:22 Anaerobic Culture - Preliminary Abdomen Assessment and Plan Plan: 1patient is a 62-year-old female with multiple comorbidities and did have a large right groin wound from recent surgical debridement and also wound to the left side of the pannus status post surgical department now presenting to the hospital with increasing drainage and concern for possible wound infection local cultures are not showing a gram-negative and a Pseudomonas. 2enterococcal bacteremia questionable related to the midline versus abdominal wound infection. 3blood cultures will be repeated document clearance of bacteremia. 4we will switch Invanz to meropenem and continue with the vancomycin. 5local wound care to continue per surgery and wound care team which has been consulted. We will follow on clinical condition and cultures to further adjust medication if needed Thank you for this consultation will follow this patient along with you
[2022-07-15 09:33] LABS: Anisocytosis Slight; Basophils % (A) 1 %; Eosinophils # (A) 0.4 k/uL (0-0.7); Eosinophils % (A) 7 %; HCT 24.1 % (34.0-46.0); HGB 7.2 gm/dL (11.4-16.0); Hypochromasia Marked; Lymphocytes # (A) 0.4 k/uL (1.0-4.8); Lymphocytes % (A) 6 %; MCH 28.7 pg (25.0-35.0); MCV 95.8 fL (80.0-100.0); Macrocytosis Slight; Monocytes # (A) 0.4 k/uL (0-1.0); Monocytes % (A) 7 %; Neutrophils # (A) 4.9 k/uL (1.3-7.7); Neutrophils % (A) 79 %; Platelet Count 410 k/uL (150-450); Poikilocytosis Slight; RBC 2.51 m/uL (3.80-5.40); RDW 18.2 % (11.5-15.5); WBC 6.2 k/uL (3.8-10.6)
[2022-07-15] MEDS: MEROPENEM 1 GM in SODIUM CHLORIDE 0.9% 100 ML IVPB SCH ×2 (09:36→15:35)
[2022-07-15 09:41] LABS: African American GFR (CKD) 86 (>60 ml/min/1.73 sqM); Anion Gap 10 mmol/L; Blood Urea Nitrogen 11 mg/dL (7-17); Calcium 7.7 mg/dL (8.4-10.2); Carbon Dioxide 22 mmol/L (22-30); Chloride 103 mmol/L (98-107); Glucose 102 mg/dL (74-99); Non-African American GFR(CKD) 74 (>60 ml/min/1.73 sqM); Potassium 3.7 mmol/L (3.5-5.1); Sodium 135 mmol/L (137-145)
[2022-07-15 09:42] LABS: C Reactive Protein 20.7 mg/dL (<1.0)
--- NOTE | 2022-07-15 09:56 | P.PN ---
Subjective Progress Note Date: 07/15/22 Principal diagnosis: Abdominal wound Patient doing well today. Her pain is improved. White blood cell count 6.2. She is afebrile. Blood cultures were positive. Objective - Vital Signs Vital signs: Vital Signs Temp 97.9 F 07/15/22 04:13 Pulse 78 07/15/22 04:13 Resp 18 07/15/22 04:13 BP 137/83 07/15/22 08:24 Pulse Ox 95 07/15/22 04:13 FiO2 Intake & Output 07/14/22 07/15/22 07/15/22 18:59 06:59 18:59 Intake Total 1400 1250 Output Total 300 400 Balance 1100 850 Intake: Intake, IV Titration 1400 900 Amount Sodium Chloride 0.9% 1, 900 900 000 ml @ 75 mls/hr IV . [id number] [facility] Rx#:[id number] Vancomycin 2,250 mg In 500 Sodium Chloride 0.9% 500 ml 500 ml @ 167 mls/hr IVPB Q12H [facility] Rx#: [id number] Oral 350 Output: Urine 300 400 Other: Voiding Method Indwelling Catheter Indwelling Catheter Indwelling Catheter - Exam Abdomen: Soft, nondistended, groin wound is clean with good granulation tissue. The patient's pannicular wound however remains ischemic appearing with an almost dry eschar appearance - Labs CBC & Chem 7: 07/15/22 05:25 07/15/22 05:25 Labs: Abnormal Lab Results - Last 24 Hours (Table) 07/14/22 07/14/22 07/14/22 Range/Units 07:20 07:20 12:21 RBC 2.61 L (4.10-5.20) X 10*6/uL Hgb 7.4 L (12.0-15.0) g/dL Hct 25.3 L (37.2-46.3) % MCHC 29.2 L (32.0-37.0) g/dL RDW 19.0 H (11.5-14.5) % MPV 9.4 L (9.5-12.2) fL Lymphocytes # 0.41 L (0.90-5.00) X 10*3/uL Monocytes # 1.06 H (0.20-1.00) X 10*3/uL Eosinophils # 0.44 H (0.04-0.35) X 10*3/uL Sodium (137-145) mmol/L Glucose (74-99) mg/dL POC Glucose (mg/dL) 135 H (70-110) mg/dL Calcium 7.9 L (8.7-10.3) mg/dL C-Reactive Protein (<1.0) mg/dL 07/14/22 07/14/22 07/15/22 Range/Units 17:12 20:17 05:25 RBC 2.51 L (4.10-5.20) X 10*6/uL Hgb 7.2 L (12.0-15.0) g/dL Hct 24.1 L (37.2-46.3) % MCHC 30.0 L (32.0-37.0) g/dL RDW 18.2 H (11.5-14.5) % MPV (9.5-12.2) fL Lymphocytes # 0.4 L (0.90-5.00) X 10*3/uL Monocytes # (0.20-1.00) X 10*3/uL Eosinophils # (0.04-0.35) X 10*3/uL Sodium (137-145) mmol/L Glucose (74-99) mg/dL POC Glucose (mg/dL) 143 H 160 H (70-110) mg/dL Calcium (8.7-10.3) mg/dL C-Reactive Protein (<1.0) mg/dL 07/15/22 07/15/22 Range/Units 05:25 07:16 RBC (4.10-5.20) X 10*6/uL Hgb (12.0-15.0) g/dL Hct (37.2-46.3) % MCHC (32.0-37.0) g/dL RDW (11.5-14.5) % MPV (9.5-12.2) fL Lymphocytes # (0.90-5.00) X 10*3/uL Monocytes # (0.20-1.00) X 10*3/uL Eosinophils # (0.04-0.35) X 10*3/uL Sodium 135 L (137-145) mmol/L Glucose 102 H (74-99) mg/dL POC Glucose (mg/dL) 122 H (70-110) mg/dL Calcium 7.7 L (8.7-10.3) mg/dL C-Reactive Protein 20.7 H (<1.0) mg/dL Microbiology - Last 24 Hours (Table) 07/13/22 17:33 Blood Culture Gram Stain - Preliminary Blood Blood Culture - Preliminary Group D Enterococcus 07/13/22 16:35 Blood Culture Gram Stain - Preliminary Blood Blood Culture - Preliminary Enterococcus faecalis Staphylococcus epidermidis 07/13/22 02:21 Gram Stain - Preliminary Abdomen Wound Culture - Preliminary Pseudomonas spec Gram Neg Bacilli Assessment and Plan (1) Open abdominal wall wound Narrative/Plan: Continue antibiotics for positive blood cultures and wounds. Continue local wound care at this time. We'll follow. Current Visit: Yes Status: Acute Code(s): S31.109A - UNSP OPN WND ABD WALL, UNSP Q W/O PENET PERIT CAV, INIT SNOMED Code(s): 386876768
[2022-07-15 10:32] VITALS: BMI 51.6
[2022-07-15] MEDS: SODIUM CHLORIDE 0.9% 1,000 ML IV SCH (12:11)
[2022-07-15 12:19] LABS: Glucose,Whole Blood 131 mg/dL (70-110)
[2022-07-15 12:32] LABS: Erythrocyte Sedimentation Rate >140 mm/hr (0-20)
[2022-07-15] MEDS ORDERED: VANCOMYCIN TROUGH DUE 1 EACH MISC MISCELLANE ONE (15:00)
[2022-07-15] MEDS ORDERED: VANCOMYCIN IV PER PHARMACY 1 EACH MISC MISCELLANE PRN (16:07)
[2022-07-15 17:20] LABS: Glucose,Whole Blood 117 mg/dL (70-110)
--- NOTE | 2022-07-15 18:13 | P.PN ---
Progress Note - Text Progress Note Date: 07/15/22 Chief Complaint: Draining wounds This is a pleasant 62-year-old patient, follows with Dr. Smooth Bob. Chronic stable medical conditions include diabetes, GERD, essential hypertension, hypothyroid. Chronic low back pain. Ovarian cancer treatment for chemo and radiation treatment. September 2021 was having significant vaginal bleeding. 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 No metastatic disease. She was not felt to be surgical candidate and was to receive 3 cycles of carboplatin/Taxol followed by radiation and 3 additional cycles of the above. She completed radiation on 03/14/2022. Started back on the carbotaxol April 03 and was status post cycle 6 day 1 on May 16. May 2022: Stroke found in the left coronary radiata on the posterior aspect of left frontal lobe. Was placed on eliquis for atrial fibrillation. For last 3 months significant wound on the right groin and abdominal pannus. Has had repeated debridement including the latest being on June 29 for necrotic tissue by Dr. Kasper. Was discharged in July 06. On IV vancomycin and IV ertapenem. Discharged to [facility] Patient now returns to the ER with increasing foul discharge from the wounds. Has a strong odor to it. Appetite has decreased. Having couple of bowel movements a day. Has a PICC line. Tired. Patient is nonambulatory. Has had some fever and chills. Uncontrolled atrial fibrillation the ER. Admitted with worsening wound on the abdomen pannus in the right groin. Infected. In uncontrolled atrial flutter. Started on IV vancomycin and IV ert apenem. Heart controlled rate medications adjusted. July 14: Laying in bed. Having some pain at the wound site. Heart rate better controlled. On IV antibiotics. Wound care. July 15: Up in bed. Eating some. Some pain. On IV antibiotics. Active Medications Acetaminophen (Acetaminophen Tab 325 Mg Tab) 650 mg PO Q4H PRN PRN Reason: Fever Hydrocodone Bitart/Acetaminophen (Hydrocodone/Apap 10-325mg 1 Each Tab) 1 each PO Q4HR PRN PRN Reason: Pain Last Admin: 07/14/22 20:19 Dose: 1 each Apixaban (Apixaban 5 Mg Tab) 5 mg PO BID@0800,1600 [facility]; Protocol Last Admin: 07/15/22 15:36 Dose: 5 mg Atorvastatin Calcium (Atorvastatin 40 Mg Tab) 40 mg PO HS@2000 [facility] Last Admin: 07/14/22 20:17 Dose: 40 mg Dextrose/Water (Dextrose 50% Syringe 50 Ml) 25 ml IVP PER PROTOCOL PRN; Protocol PRN Reason: Hypoglycemia Dextrose/Water (Dextrose 50% Syringe 50 Ml) 50 ml IVP PER PROTOCOL PRN; Protocol PRN Reason: Hypoglycemia Diltiazem HCl (Diltiazem Oral 30 Mg Tab) 30 mg PO TID [facility] Last Admin: 07/15/22 15:36 Dose: 30 mg Docusate Sodium (Docusate 100 Mg Cap) 100 mg PO BID@0800,1600 [facility] Last Admin: 07/15/22 15:36 Dose: Not Given Famotidine (Famotidine 20 Mg Tab) 20 mg PO DAILY [facility] Last Admin: 07/15/22 08:26 Dose: 20 mg Fentanyl (Fentanyl 50mcg/Hr Patch) 1 patch TRANSDERM Q72H [facility]; Protocol Last Admin: 07/15/22 08:26 Dose: 1 patch Sodium Chloride (Saline 0.9%) 1,000 mls @ 75 mls/hr IV .[id number] [facility] Last Admin: 07/15/22 12:11 Dose: Not Given Meropenem 1 gm/ Sodium (Chloride) 100 mls @ 33.3 mls/hr IVPB Q8HR [facility]; Protocol Last Admin: 07/15/22 15:35 Dose: 33.3 mls/hr Insulin Aspart (Insulin Aspart (Novolog) 100 Unit/Ml Vial) 0 unit SQ AC-TID [facility]; Protocol Last Admin: 07/15/22 17:27 Dose: Not Given Lactic Acid (Ammonium Lactate 12% Lotion 225 Gm Btl) 1 applic TOPICAL DAILY@0800 [facility]; Protocol Last Admin: 07/15/22 08:27 Dose: 1 applic Levothyroxine Sodium (Levothyroxine 100 Mcg Tab) 200 mcg PO DAILY@0800 [facility] Last Admin: 07/15/22 08:25 Dose: 200 mcg Metoprolol Tartrate (Metoprolol Tartrate 50 Mg Tab) 50 mg PO BID [facility] Last Admin: 07/15/22 08:25 Dose: 50 mg Miscellaneous Information (Vancomycin Iv Per Pharmacy 1 Each Misc) 0 each MISCELLANE DIRECTED PRN PRN Reason: LEVELS Morphine Sulfate (Morphine Sulfate 4 Mg/Ml Syringe) 4 mg IVP Q4HR PRN PRN Reason: Pain Last Admin: 07/15/22 12:46 Dose: 4 mg Multivitamins (Multivitamins, Thera 1 Each Tab) 1 each PO DAILY@0800 [facility] Last Admin: 07/15/22 08:25 Dose: 1 each Naloxone HCl (Naloxone 0.4 Mg/Ml 1 Ml Vial) 0.2 mg IV Q2M PRN PRN Reason: Opioid Reversal Nitroglycerin (Nitroglycerin Sl Tabs 0.4 Mg Tab) 0.4 mg SUBLINGUAL Q5M PRN PRN Reason: Chest Pain Nystatin (Nystatin 100,000 Unit/Gm Powd 15 Gm) 1 applic TOPICAL BID@0800,1600 [facility]; Protocol Last Admin: 07/15/22 15:40 Dose: 1 applic Oxybutynin Chloride (Oxybutynin 10 Mg Tab.Er.24) 10 mg PO DAILY@0800 [facility] Last Admin: 07/15/22 08:27 Dose: 10 mg Pantoprazole Sodium (Pantoprazole 40 Mg Tablet) 40 mg PO DAILY@2000 [facility] Last Admin: 07/14/22 20:18 Dose: 40 mg Vancomycin HCl (Vancomycin Oral Solution 250 Mg/5 Ml Bottle) 125 mg PO Q6HR [facility]; Protocol Stop: 07/20/22 23:00 Last Admin: 07/15/22 17:37 Dose: 125 mg Past medical history to include: Atrial fibrillation, diabetes, GERD, hypertension, hypothyroid, ovarian cancer with chemo and radiation treatment. Depression. Stroke. Social history: At [facility]. started smoking as a teenager and stopped in 1994. No alcohol. Family history: Father of lung cancer Physical examination: VITAL SIGNS: 97.3, 92, 18, 114/77, 96% room air GENERAL: Laying in bed, awake, tired EYES: Pupils equal. Conjunctiva normal. HEENT: External appearance of nose and ears normal, oral cavity dry mucous membranes NECK: JVD unable to assess; masses not palpable. HEART: Heart sounds irregular; slight edema. LUNGS: Respiratory rate normal; distant breath sound. ABDOMEN: Soft, nontender, liver spleen not palpable, no masses palpable. Perianal wounds C wound care notes. PSYCH: Answering questions appropriately MUSCULOSKELETAL:No Clubbing/cyanosis;muscles-grossly intact, evidence of OA DERMATOLOGICAL: Dressing over the wound in the abdominal pannus and in the right groin. See nursing notes for pictures INVESTIGATIONS, reviewed in the clinical context: July 15: WBC 6.2 hemoglobin 7.2 platelets 410 progression 3.7 creatinine 0.84 July 14: WBC 7.9 hemoglobin 10.4 patriots 133 potassium 4.9 creatinine 0.9 White count 6.6 hemoglobin 8.4 platelets 570 potassium 4.2 creatinine 0.8 TSH 3.1 EKG tracing personally reviewed by me-atrial fibrillation. Rate 125 Previous admission: 06/01/2022: BUN 19 creatinine 0.93 MRI brain without contrast: Acute/subacute CVA of the left coronary radiata on the posterior aspect of the left frontal lobe. Nonspecific white matter changes. 2-D echocardiogram: EF 55-60%, severe LVH Assessment and plan: -Acute on Chronic Large wound on the abdominal pannus and right groin: Being followed by Dr. Kasper from general surgery and ID. Patient most recently had deep debridement of necrotic tissue on June 29. Patient was discharged on IV ertapenem and IV vancomycin.: Not improving Follow with surgery. On IV ertapenem and IV vancomycin. -Persistent atrial fibrillation, ratecontrolled Eliquis. Lopressor 50 mg twice a day. Coreg discontinued. Cardizem 30 mg 3 times a day started today. -Recent C. diff colitis from recent antibiotics: Complete course Oral vancomycin 125 mg by mouth 4 times a day. -Recent stroke in the left [place] radiata on the posterior aspect of the left frontal lobe. suspected to be embolic from underlying paroxysmal atrial fibrillation, on 05/18/2022 Eliquis -Chronic dysphagia from underlying stroke : Chopped diet -Diabetes mellitus type 2 on oral hypoglycemic Sliding scale. Follow Accu-Cheks -Normocytic of anemia of chronic disease -Morbid obesity BMI 53.3 Weight loss measures -GERD Prilosec 20 mg -Essential hypertension, Lopressor, Cardizem -Chronic urinary stress incontinence Ditropan XL 10 mg a day -Hypothyroid Synthroid 200 g a day -Acute on chronic medical debility multifactorial -DO NOT RESUSCITATE On IV vancomycin and IV ertapenem. Discussed with patient. Currently her other medications.
[2022-07-15] MEDS: PANTOPRAZOLE 40 MG TABLET PO SCH (19:53)
[2022-07-15] MEDS: ATORVASTATIN 40 MG TAB PO SCH (19:53)
[2022-07-15 20:16] LABS: Glucose,Whole Blood 141 mg/dL (70-110)
--- NOTE | 2022-07-15 21:09 | P.PN ---
Subjective Progress Note Date: 07/15/22 Principal diagnosis: Bacteremia and abdominal wound infection Patient is a 62-year-old female presenting to the hospital with increasing drainage from abdominal wound concerning for infection in this patient also having a positive blood culture with Enterococcus faecalis. on today's evaluation that is 07/15/2022, the patient denies having any fever or any chills, the patient is breathing comfortably, denies having any chest pain or shortness of the cough abdominal pain has decreased in intensity no nausea no vomiting and no diarrhea has been reported by the nursing staff Objective - Vital Signs Vital signs: Vital Signs Temp 97.3 F L 07/15/22 11:04 Pulse 92 07/15/22 11:04 Resp 18 07/15/22 11:04 BP 114/77 07/15/22 11:20 Pulse Ox 96 07/15/22 11:04 FiO2 Intake & Output 07/14/22 07/15/22 07/15/22 18:59 06:59 18:59 Intake Total 1400 1250 Output Total 300 400 500 Balance 1100 850 -500 Weight 145.15 kg Intake: Intake, IV Titration 1400 900 Amount Sodium Chloride 0.9% 1, 900 900 000 ml @ 75 mls/hr IV . [id number] [facility] Rx#:[id number] Vancomycin 2,250 mg In 500 Sodium Chloride 0.9% 500 ml 500 ml @ 167 mls/hr IVPB Q12H [facility] Rx#: [id number] Oral 350 Output: Urine 300 400 500 Other: Voiding Method Indwelling Catheter Indwelling Catheter Indwelling Catheter - Exam GENERAL DESCRIPTION: An elderly female lying in bed in no distress RESPIRATORY SYSTEM: Unlabored breathing , decreased breath sounds at bases HEART: S1 S2 regular rate and rhythm , ABDOMEN: Soft , right lower abdominal/groin wound is drying out, she did have a significant slough tissue on the left lower abdominal wound area EXTREMITIES: Diffuse swelling bilateral lower extremity - Labs CBC & Chem 7: 07/15/22 05:25 07/15/22 05:25 Labs: Abnormal Lab Results - Last 24 Hours (Table) 07/14/22 07/15/22 07/15/22 Range/Units 20:17 05:25 05:25 RBC 2.51 L (3.80-5.40) m/uL Hgb 7.2 L (11.4-16.0) gm/dL Hct 24.1 L (34.0-46.0) % MCHC 30.0 L (31.0-37.0) g/dL RDW 18.2 H (11.5-15.5) % Lymphocytes # 0.4 L (1.0-4.8) k/uL ESR >140 H (0-20) mm/hr Sodium 135 L (137-145) mmol/L Glucose 102 H (74-99) mg/dL POC Glucose (mg/dL) 160 H (70-110) mg/dL Calcium 7.7 L (8.4-10.2) mg/dL C-Reactive Protein 20.7 H (<1.0) mg/dL Vancomycin Trough ug/mL 07/15/22 07/15/22 07/15/22 Range/Units 07:16 12:08 14:59 RBC (3.80-5.40) m/uL Hgb (11.4-16.0) gm/dL Hct (34.0-46.0) % MCHC (31.0-37.0) g/dL RDW (11.5-15.5) % Lymphocytes # (1.0-4.8) k/uL ESR (0-20) mm/hr Sodium (137-145) mmol/L Glucose (74-99) mg/dL POC Glucose (mg/dL) 122 H 131 H (70-110) mg/dL Calcium (8.4-10.2) mg/dL C-Reactive Protein (<1.0) mg/dL Vancomycin Trough 47.6 H* ug/mL 07/15/22 Range/Units 17:12 RBC (3.80-5.40) m/uL Hgb (11.4-16.0) gm/dL Hct (34.0-46.0) % MCHC (31.0-37.0) g/dL RDW (11.5-15.5) % Lymphocytes # (1.0-4.8) k/uL ESR (0-20) mm/hr Sodium (137-145) mmol/L Glucose (74-99) mg/dL POC Glucose (mg/dL) 117 H (70-110) mg/dL Calcium (8.4-10.2) mg/dL C-Reactive Protein (<1.0) mg/dL Vancomycin Trough ug/mL Microbiology - Last 24 Hours (Table) 07/13/22 17:33 Blood Culture Gram Stain - Final Blood Blood Culture - Final Enterococcus faecalis Coagulase Negative Staph 07/13/22 16:35 Blood Culture Gram Stain - Final Blood Blood Culture - Final Enterococcus faecalis Staphylococcus epidermidis 07/13/22 02:22 Anaerobic Culture - Preliminary Abdomen 07/13/22 02:21 Gram Stain - Preliminary Abdomen Wound Culture - Preliminary Pseudomonas aeruginosa Klebsiella pneumoniae Assessment and Plan (1) Wound infection Current Visit: Yes Status: Acute Code(s): T14.8XXA - OTHER INJURY OF UNSPECIFIED BODY REGION, INITIAL ENCOUNTER; L08.9 - LOCAL INFECTION OF THE SKIN AND SUBCUTANEOUS TISSUE, UNSP SNOMED Code(s): 71165512 (2) Bacteremia Current Visit: Yes Status: Acute Code(s): R78.81 - BACTEREMIA SNOMED Code(s): 5414588 (3) Right groin wound Current Visit: No Status: Acute Code(s): S31.109A - UNSP OPN WND ABD WALL, UNSP Q W/O PENET PERIT CAV, INIT SNOMED Code(s): 938568742 Plan: 1patient is a 62-year-old female with multiple comorbidities and did have a large right groin wound from recent surgical debridement and also wound to the left side of the pannus status post surgical department now presenting to the hospital with increasing drainage and concern for possible wound infection local cultures are not showing a gram-negative and a Pseudomonas. 2enterococcal bacteremia likely related to the midline as abdominal wound cultures are growing gram-negative 3discontinue the midline and sensitive for the culture 4 discontinue the vancomycin and meropenem to which the pseudomonas is resistant 5- we'll start the patient on Zerbexa which should cover for both the pseudomonas and ESBL Klebsiella Time with Patient: Less than 30
[2022-07-16] MEDS: CEFTOLOZANE/TAZOBACTAM 1.5 GM in SODIUM CHLORIDE 0.9% 100 ML IV SCH ×3 (00:02→15:50)
[2022-07-16] MEDS: MORPHINE SULFATE 4 MG/ML SYRINGE IVP PRN ×4 (00:58→21:24)
[2022-07-16] MEDS: SODIUM CHLORIDE 0.9% 1,000 ML IV SCH ×2 (00:59→15:51)
[2022-07-16 06:33] LABS: Anisocytosis Slight; Basophils # (A) 0.1 k/uL (0-0.2); Basophils % (A) 1 %; Eosinophils # (A) 0.4 k/uL (0-0.7); Eosinophils % (A) 5 %; HCT 28.5 % (34.0-46.0); HGB 8.5 gm/dL (11.4-16.0); Hypochromasia Marked; Lymphocytes # (A) 0.3 k/uL (1.0-4.8); Lymphocytes % (A) 5 %; MCH 29.6 pg (25.0-35.0); MCHC 29.8 g/dL (31.0-37.0); MCV 99.3 fL (80.0-100.0); Macrocytosis Slight; Mean Platelet Volume 7.4; Monocytes # (A) 0.4 k/uL (0-1.0); Monocytes % (A) 6 %; Neutrophils % (A) 82 %; Platelet Count 404 k/uL (150-450); Poikilocytosis Slight; RBC 2.87 m/uL (3.80-5.40); RDW 18.2 % (11.5-15.5); WBC 7.4 k/uL (3.8-10.6)
[2022-07-16 06:55] LABS: African American GFR (CKD) 70 (>60 ml/min/1.73 sqM); Anion Gap 11 mmol/L; Blood Urea Nitrogen 12 mg/dL (7-17); Calcium 7.8 mg/dL (8.4-10.2); Carbon Dioxide 22 mmol/L (22-30); Chloride 104 mmol/L (98-107); Glucose 98 mg/dL (74-99); Non-African American GFR(CKD) 61 (>60 ml/min/1.73 sqM); Potassium 3.9 mmol/L (3.5-5.1); Sodium 137 mmol/L (137-145)
[2022-07-16 07:04] LABS: Glucose,Whole Blood 116 mg/dL (70-110)
[2022-07-16 07:08] LABS: C Reactive Protein 21.4 mg/dL (<1.0)
[2022-07-16] MEDS: INSULIN ASPART (NovoLOG) 100 UNIT/ML VIAL SQ SCH ×3 (07:22→17:39)
[2022-07-16] MEDS: AMMONIUM LACTATE 12% LOTION 225 GM BTL TOPICAL SCH (08:36)
[2022-07-16] MEDS: DOCUSATE 100 MG CAP PO SCH ×2 (08:37→15:51)
[2022-07-16] MEDS: LEVOTHYROXINE 100 MCG TAB PO SCH (08:38)
[2022-07-16] MEDS: MULTIVITAMINS, THERA 1 EACH TAB PO SCH (08:38)
[2022-07-16] MEDS: METOPROLOL TARTRATE 50 MG TAB PO SCH ×2 (08:38→21:23)
[2022-07-16] MEDS: FAMOTIDINE 20 MG TAB PO SCH (08:38)
[2022-07-16] MEDS: APIXABAN 5 MG TAB PO SCH ×2 (08:38→15:51)
[2022-07-16] MEDS: OXYBUTYNIN 10 MG TAB.ER.24 PO SCH (08:38)
[2022-07-16] MEDS: COLLAGENASE 250 UNIT/GM OINTMENT 30 GM TUBE TOPICAL SCH (08:40)
[2022-07-16] MEDS: NYSTATIN 100,000 UNIT/GM POWD 15 GM TOPICAL SCH ×2 (08:44→15:51)
--- NOTE | 2022-07-16 10:15 | P.PN ---
Subjective Progress Note Date: 07/16/22 Principal diagnosis: Abdominal wound Patient doing about the same. White blood cell count is normal. She is afebrile. She is tolerating her diet. Objective - Vital Signs Vital signs: Vital Signs Temp 97.8 F 07/16/22 04:20 Pulse 114 H 07/16/22 08:31 Resp 18 07/16/22 04:20 BP 90/70 07/16/22 08:31 Pulse Ox 95 07/16/22 08:31 FiO2 Intake & Output 07/15/22 07/16/22 07/16/22 18:59 06:59 18:59 Intake Total 700 Output Total 500 450 Balance 200 -450 Weight 145.15 kg Intake: Intake, IV Titration 700 Amount Meropenem 1 gm In Sodium 100 Chloride 0.9% 100 ml @ 33 .3 mls/hr IVPB Q8HR [facility]AN[facility] Rx#:[id number] Sodium Chloride 0.9% 1, 600 000 ml @ 75 mls/hr IV . [id number] FANNY Rx#:[id number] Output: Urine 500 450 Other: Voiding Method Indwelling Catheter Indwelling Catheter Indwelling Catheter - Exam Pannus wound with mild tenderness and induration, no erythema, minimal drainage, right groin wounds clean with excellent granulation tissue present - Labs CBC & Chem 7: 07/16/22 05:22 07/16/22 05:22 Labs: Abnormal Lab Results - Last 24 Hours (Table) 07/15/22 07/15/22 07/15/22 Range/Units 05:25 12:08 14:59 RBC (3.80-5.40) m/uL Hgb (11.4-16.0) gm/dL Hct (34.0-46.0) % MCHC (31.0-37.0) g/dL RDW (11.5-15.5) % Lymphocytes # (1.0-4.8) k/uL ESR >140 H (0-20) mm/hr POC Glucose (mg/dL) 131 H (70-110) mg/dL Calcium (8.4-10.2) mg/dL C-Reactive Protein (<1.0) mg/dL Vancomycin Trough 47.6 H* ug/mL 07/15/22 07/15/22 07/16/22 Range/Units 17:12 20:14 05:22 RBC (3.80-5.40) m/uL Hgb (11.4-16.0) gm/dL Hct (34.0-46.0) % MCHC (31.0-37.0) g/dL RDW (11.5-15.5) % Lymphocytes # (1.0-4.8) k/uL ESR (0-20) mm/hr POC Glucose (mg/dL) 117 H 141 H (70-110) mg/dL Calcium 7.8 L (8.4-10.2) mg/dL C-Reactive Protein 21.4 H (<1.0) mg/dL Vancomycin Trough ug/mL 07/16/22 07/16/22 Range/Units 05:22 07:03 RBC 2.87 L (3.80-5.40) m/uL Hgb 8.5 L (11.4-16.0) gm/dL Hct 28.5 L (34.0-46.0) % MCHC 29.8 L (31.0-37.0) g/dL RDW 18.2 H (11.5-15.5) % Lymphocytes # 0.3 L (1.0-4.8) k/uL ESR (0-20) mm/hr POC Glucose (mg/dL) 116 H (70-110) mg/dL Calcium (8.4-10.2) mg/dL C-Reactive Protein (<1.0) mg/dL Vancomycin Trough ug/mL Microbiology - Last 24 Hours (Table) 07/13/22 02:21 Gram Stain - Final Abdomen Wound Culture - Preliminary Pseudomonas aeruginosa Klebsiella pneumoniae 07/13/22 17:33 Blood Culture Gram Stain - Final Blood Blood Culture - Final Enterococcus faecalis Coagulase Negative Staph 07/13/22 16:35 Blood Culture Gram Stain - Final Blood Blood Culture - Final Enterococcus faecalis Staphylococcus epidermidis 07/13/22 02:22 Anaerobic Culture - Preliminary Abdomen Assessment and Plan (1) Open abdominal wall wound Narrative/Plan: Patient appears to be clinically improving. Continue antibiotics and local wound care. Increase activity as tolerated. Will follow. Current Visit: Yes Status: Acute Code(s): S31.109A - UNSP OPN WND ABD WALL, UNSP Q W/O PENET PERIT CAV, INIT SNOMED Code(s): 305114083
[2022-07-16 11:15] LABS: Glucose,Whole Blood 148 mg/dL (70-110)
[2022-07-16] MEDS: DILTIAZEM ORAL 30 MG TAB PO SCH ×3 (11:20→21:24)
--- NOTE | 2022-07-16 15:43 | P.PN ---
Progress Note - Text Progress Note Date: 07/16/22 Chief Complaint: Draining wounds This is a pleasant 62-year-old patient, follows with Dr. Smooth Bob. Chronic stable medical conditions include diabetes, GERD, essential hypertension, hypothyroid. Chronic low back pain. Ovarian cancer treatment for chemo and radiation treatment. September 2021 was having significant vaginal bleeding. 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 No metastatic disease. She was not felt to be surgical candidate and was to receive 3 cycles of carboplatin/Taxol followed by radiation and 3 additional cycles of the above. She completed radiation on 03/14/2022. Started back on the carbotaxol April 03 and was status post cycle 6 day 1 on May 16. May 2022: Stroke found in the left coronary radiata on the posterior aspect of left frontal lobe. Was placed on eliquis for atrial fibrillation. For last 3 months significant wound on the right groin and abdominal pannus. Has had repeated debridement including the latest being on June 29 for necrotic tissue by Dr. Kasper. Was discharged in July 06. On IV vancomycin and IV ertapenem. Discharged to [facility] Patient now returns to the ER with increasing foul discharge from the wounds. Has a strong odor to it. Appetite has decreased. Having couple of bowel movements a day. Has a PICC line. Tired. Patient is nonambulatory. Has had some fever and chills. Uncontrolled atrial fibrillation the ER. Admitted with worsening wound on the abdomen pannus in the right groin. Infected. In uncontrolled atrial flutter. Started on IV vancomycin and IV ert apenem. Heart controlled rate medications adjusted. July 14: Laying in bed. Having some pain at the wound site. Heart rate better controlled. On IV antibiotics. Wound care. July 15: Up in bed. Eating some. Some pain. On IV antibiotics. July 16: Reclining. Appetite better. Selective about food.. IV antibiotics. Pain better. Past medical history to include: Atrial fibrillation, diabetes, GERD, hypertension, hypothyroid, ovarian cancer with chemo and radiation treatment. Depression. Stroke. Social history: At rehab [facility]. started smoking as a teenager and stopped in 1994. No alcohol. Family history: Father of lung cancer Physical examination: VITAL SIGNS: 98.4, 97, 17, 101/67, 95% room air GENERAL: Reclining, awake, tired EYES: Pupils equal. Conjunctiva normal. HEENT: External appearance of nose and ears normal, oral cavity dry mucous membranes NECK: JVD unable to assess; masses not palpable. HEART: Heart sounds irregular; slight edema. LUNGS: Respiratory rate normal; distant breath sound. ABDOMEN: Soft, nontender, liver spleen not palpable, no masses palpable. Perianal wounds C wound care notes. PSYCH: Answering questions appropriately MUSCULOSKELETAL:No Clubbing/cyanosis;muscles-grossly intact, evidence of OA DERMATOLOGICAL: Dressing over the wound in the abdominal pannus and in the right groin. See nursing notes for pictures INVESTIGATIONS, reviewed in the clinical context: July 16: Hemoglobin 8.5 platelets 404 percussion 3.9 creatinine 0.99 July 15: WBC 6.2 hemoglobin 7.2 platelets 410 progression 3.7 creatinine 0.84 July 14: WBC 7.9 hemoglobin 10.4 patriots 133 potassium 4.9 creatinine 0.9 White count 6.6 hemoglobin 8.4 platelets 570 potassium 4.2 creatinine 0.8 TSH 3.1 EKG tracing personally reviewed by me-atrial fibrillation. Rate 125 Previous admission: 06/01/2022: BUN 19 creatinine 0.93 MRI brain without contrast: Acute/subacute CVA of the left coronary radiata on the posterior aspect of the left frontal lobe. Nonspecific white matter changes. 2-D echocardiogram: EF 55-60%, severe LVH Assessment and plan: -Acute on Chronic Large wound on the abdominal pannus and right groin: Being followed by Dr. Kasper from general surgery and ID. Patient most recently had deep debridement of necrotic tissue on June 29. Patient was discharged on IV ertapenem and IV vancomycin.: Not improving Follow with surgery. On IV ertapenem and IV vancomycin. -Persistent atrial fibrillation, ratecontrolled Eliquis. Lopressor 50 mg twice a day. Coreg discontinued. Cardizem 30 mg 3 times a day started today. -Recent C. diff colitis from recent antibiotics: Complete course Oral vancomycin 125 mg by mouth 4 times a day. -Recent stroke in the left [place] radiata on the posterior aspect of the left frontal lobe. suspected to be embolic from underlying paroxysmal atrial fibrillation, on 05/18/2022 Eliquis -Chronic dysphagia from underlying stroke : Chopped diet -Diabetes mellitus type 2 on oral hypoglycemic Sliding scale. Follow Accu-Cheks -Normocytic of anemia of chronic disease -Morbid obesity BMI 53.3 Weight loss measures -GERD Prilosec 20 mg -Essential hypertension, Lopressor, Cardizem -Chronic urinary stress incontinence Ditropan XL 10 mg a day -Hypothyroid Synthroid 200 g a day -Acute on chronic medical debility multifactorial -DO NOT RESUSCITATE On IV vancomycin and IV ertapenem. Discussed with patient. Continue current medications. Await Dr. Kasper for further debridement.
[2022-07-16 17:38] LABS: Glucose,Whole Blood 112 mg/dL (70-110)
[2022-07-16 20:18] LABS: Glucose,Whole Blood 155 mg/dL (70-110)
[2022-07-16] MEDS: ATORVASTATIN 40 MG TAB PO SCH (21:23)
[2022-07-16] MEDS: PANTOPRAZOLE 40 MG TABLET PO SCH (21:23)
[2022-07-17] MEDS: CEFTOLOZANE/TAZOBACTAM 1.5 GM in SODIUM CHLORIDE 0.9% 100 ML IV SCH ×3 (01:10→21:33)
[2022-07-17] MEDS: SODIUM CHLORIDE 0.9% 1,000 ML IV SCH ×2 (05:17→23:22)
[2022-07-17 07:04] LABS: Glucose,Whole Blood 116 mg/dL (70-110)
[2022-07-17] MEDS: INSULIN ASPART (NovoLOG) 100 UNIT/ML VIAL SQ SCH ×3 (08:00→21:34)
[2022-07-17] MEDS: METOPROLOL TARTRATE 50 MG TAB PO SCH ×2 (09:22→20:45)
[2022-07-17] MEDS: DILTIAZEM ORAL 30 MG TAB PO SCH ×3 (09:23→23:54)
[2022-07-17] MEDS: LEVOTHYROXINE 100 MCG TAB PO SCH (09:23)
[2022-07-17] MEDS: FAMOTIDINE 20 MG TAB PO SCH (09:23)
[2022-07-17] MEDS: OXYBUTYNIN 10 MG TAB.ER.24 PO SCH (09:23)
[2022-07-17] MEDS: DOCUSATE 100 MG CAP PO SCH ×2 (09:23→21:33)
[2022-07-17] MEDS: MULTIVITAMINS, THERA 1 EACH TAB PO SCH (09:24)
[2022-07-17] MEDS: APIXABAN 5 MG TAB PO SCH ×2 (09:24→21:32)
[2022-07-17] MEDS: HYDROcodone/APAP 10-325MG 1 EACH TAB PO PRN ×2 (09:34→20:52)
[2022-07-17] MEDS: AMMONIUM LACTATE 12% LOTION 225 GM BTL TOPICAL SCH (09:36)
[2022-07-17] MEDS: NYSTATIN 100,000 UNIT/GM POWD 15 GM TOPICAL SCH ×2 (09:38→21:33)
[2022-07-17 11:17] LABS: Glucose,Whole Blood 152 mg/dL (70-110)
[2022-07-17] MEDS: MORPHINE SULFATE 4 MG/ML SYRINGE IVP PRN (12:04)
[2022-07-17 19:17] LABS: Glucose,Whole Blood 121 mg/dL (70-110)
[2022-07-17 20:29] LABS: Glucose,Whole Blood 170 mg/dL (70-110)
[2022-07-17] MEDS: PANTOPRAZOLE 40 MG TABLET PO SCH (20:45)
[2022-07-17] MEDS: ATORVASTATIN 40 MG TAB PO SCH (20:46)
--- NOTE | 2022-07-17 21:25 | P.PN ---
Subjective Progress Note Date: 07/17/22 Principal diagnosis: Abdominal wound Patient is doing well today. Denies abdominal pain She is tolerating dressing changes better than she had been previously. She is afebrile. Objective - Vital Signs Vital signs: Vital Signs Temp 97.8 F 07/17/22 10:50 Pulse 90 07/17/22 10:50 Resp 18 07/17/22 10:50 BP 97/65 07/17/22 10:50 Pulse Ox 92 L 07/17/22 10:50 FiO2 Intake & Output 07/17/22 07/17/22 07/18/22 06:59 18:59 06:59 Output Total 425 350 Balance -425 -350 Output: Urine 425 350 Other: Voiding Method Indwelling Catheter Indwelling Catheter # Voids 1 - Exam Pannus wound with mild tenderness and induration, no erythema, minimal drainage, right groin wounds clean with excellent granulation tissue present - Labs CBC & Chem 7: 07/16/22 05:22 07/16/22 05:22 Labs: Abnormal Lab Results - Last 24 Hours (Table) 07/17/22 07/17/22 07/17/22 Range/Units 07:03 11:15 17:12 POC Glucose (mg/dL) 116 H 152 H 121 H (70-110) mg/dL 07/17/22 Range/Units 20:28 POC Glucose (mg/dL) 170 H (70-110) mg/dL Microbiology - Last 24 Hours (Table) 07/15/22 14:59 Blood Culture - Preliminary Blood No Growth after 48 hours Assessment and Plan (1) Open abdominal wall wound Narrative/Plan: Patient symptoms have improved since admission. Patient symptoms have improved since admission. Wounds are improving as well. Continue antibiotics. possible discharge to rehab when cleared by infectious disease. Current Visit: Yes Status: Acute Code(s): S31.109A - UNSP OPN WND ABD WALL, UNSP Q W/O PENET PERIT CAV, INIT SNOMED Code(s): 404916479
[2022-07-17] MEDS: COLLAGENASE 250 UNIT/GM OINTMENT 30 GM TUBE TOPICAL SCH (21:30)
[2022-07-18] MEDS: CEFTOLOZANE/TAZOBACTAM 1.5 GM in SODIUM CHLORIDE 0.9% 100 ML IV SCH ×4 (01:17→23:12)
[2022-07-18] MEDS: HYDROcodone/APAP 10-325MG 1 EACH TAB PO PRN ×3 (01:25→18:49)
[2022-07-18 07:07] LABS: Glucose,Whole Blood 112 mg/dL (70-110)
[2022-07-18] MEDS: INSULIN ASPART (NovoLOG) 100 UNIT/ML VIAL SQ SCH ×3 (07:38→19:20)
[2022-07-18] MEDS: SODIUM CHLORIDE 0.9% 1,000 ML IV SCH ×2 (07:53→19:21)
[2022-07-18] MEDS: FAMOTIDINE 20 MG TAB PO SCH (07:59)
[2022-07-18] MEDS: MULTIVITAMINS, THERA 1 EACH TAB PO SCH (07:59)
[2022-07-18] MEDS: APIXABAN 5 MG TAB PO SCH ×2 (07:59→15:36)
[2022-07-18] MEDS: LEVOTHYROXINE 100 MCG TAB PO SCH (07:59)
[2022-07-18] MEDS: OXYBUTYNIN 10 MG TAB.ER.24 PO SCH (07:59)
[2022-07-18] MEDS: AMMONIUM LACTATE 12% LOTION 225 GM BTL TOPICAL SCH (07:59)
[2022-07-18] MEDS: DOCUSATE 100 MG CAP PO SCH ×2 (07:59→15:36)
[2022-07-18] MEDS: NYSTATIN 100,000 UNIT/GM POWD 15 GM TOPICAL SCH ×2 (08:00→19:20)
[2022-07-18] MEDS: MORPHINE SULFATE 4 MG/ML SYRINGE IVP PRN (09:01)
[2022-07-18] MEDS: COLLAGENASE 250 UNIT/GM OINTMENT 30 GM TUBE TOPICAL SCH (09:07)
[2022-07-18] MEDS: METOPROLOL TARTRATE 50 MG TAB PO SCH ×3 (10:23→19:58)
[2022-07-18] MEDS: DILTIAZEM ORAL 30 MG TAB PO SCH (10:23)
[2022-07-18] MEDS ORDERED: DIGOXIN 250 MCG/ML 2 ML AMP IVP ONE (11:00)
--- NOTE | 2022-07-18 11:02 | P.PN ---
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 She states she used to follow with a food service representative out of town, does not recall their name, states she has not followed up in years. We are consulted for A fib with RVR. Patient presents to the ER from [facility] for increase pain and worsening wounds in groin and perineal area. She was recently discharged from on the [facility] 07/[facility]/22, she was admitted at that time with necrotizing/gangrenous right groin wound/pubis status post debridement of the right groin wound and left pannus with wound VAC placement with surgery. She was stabilized and discharged to [facility]. Recent echocardiogram 05/19/2022 revealed an EF of 5560 %, mild mitral regurgitation, mild tricuspid regurgitation 07/18/2022 Cardiology re-consulted for A fib with RVR. Patient seen on 5N. This morning while completing vital signs patient noted to by tachycardic with HR 120s-160s. Cardiology was notified. Patient seen and examined at bedside, no acute distress. She denies any chest pain, shortness of breath, or palpitations, lightheadedness or dizziness. She is currently maintained on Cardizem 30mg TID and Metoprolol tartrate 50mg BID. Unable to review telemetry today secondary to clinical access not being able to review today. HR yesterday were in the 60s- 70s. BP has been having soft blood pressures BP 89/59. EKG was performed at bedside which revealed-Patient is A fib HR 120s-130s. EKG revealed A fib with RVR HR 122. PHYSICAL EXAMINATION Vital signs reviewed. CONSTITUTIONAL: No apparent distress, obese HEENT: Head is normocephalic. Neck Supple No JVD. CHEST EXAMINATION: Lungs are clear to auscultation. No chest wall tenderness is noted on palpation or with deep breathing. HEART EXAMINATION: Irregular rate and rhythm. S1, S2 heard. No murmurs, gallops or rub. ABDOMEN: Soft, nontender. Positive bowel sounds. EXTREMITIES: 2+ peripheral pulses, 1+ bilateral lower extremity edema and no calf tenderness. SKIN: Right groin wound, multiple wounds in perineal area NEUROLOGIC EXAMINATION: Patient is awake, alert and oriented x3. ASSESSMENT Increased right groin and pubis wound pain Persistent atrial fibrillation with RVR, on Eliquis Recent necrotizing/gangrenous right groin wound/pubis, with bleeding s/p debridement and wound VAC 06/29. Recent PICC line catheter tip infection with Klebsiella Recent Klebsiella bacteremia secondary to above Recent C. diff colitis Recent Acute CVA in 05/19/2022 Reported history of CAD with likely VARIETY PERFORMER Hypertension Diabetes mellitus type 2 Uterine cancer undergoing chemotherapy with prior significant vaginal bleeding Obesity PLAN IV Digoxin 250mcg x 1, and PO 125mcg daily Increase metoprolol tartrate 50mg TID Stop Cardizem Continue anticoagulation with eliquis Continue cardiac telemetry Further recommendations based on clinical course Nurse practitioner note has been reviewed by physician. Signing provider agrees with the documented findings, assessment, and plan of care. Objective - Vital Signs Vital signs: Vital Signs Temp 97.7 F 07/18/22 07:45 Pulse 88 07/18/22 07:45 Resp 18 07/18/22 07:45 BP 89/59 07/18/22 07:45 Pulse Ox 94 L 07/18/22 07:45 FiO2 Intake & Output 07/17/22 07/18/22 07/18/22 18:59 06:59 18:59 Output Total 350 350 Balance -350 -350 Output: Urine 350 350 Other: Voiding Method Indwelling Catheter Indwelling Catheter # Voids 1 0 - Labs CBC & Chem 7: 07/16/22 05:22 07/16/22 05:22 Labs: Abnormal Lab Results - Last 24 Hours (Table) 07/17/22 07/17/22 07/17/22 Range/Units 11:15 17:12 20:28 POC Glucose (mg/dL) 152 H 121 H 170 H (70-110) mg/dL 07/18/22 Range/Units 07:05 POC Glucose (mg/dL) 112 H (70-110) mg/dL Microbiology - Last 24 Hours (Table) 07/15/22 21:42 Catheter Tip Culture - Preliminary Catheter Tip Coagulase Negative Staph 07/15/22 14:59 Blood Culture - Preliminary Blood No Growth after 48 hours
[2022-07-18 11:12] LABS: Glucose,Whole Blood 146 mg/dL (70-110)
--- NOTE | 2022-07-18 12:59 | P.PN ---
Subjective Progress Note Date: 07/18/22 CHIEF COMPLAINT: Abdominal wound HISTORY OF PRESENT ILLNESS: Patient reports pain is about the same. She is followed by infectious disease. Patient had atrial fibrillation with rapid ventricular response and is followed by cardiology. She is tolerating diet. Afebrile. No new labs. Catheter tip growing coagulase negative staph PHYSICAL EXAM: VITAL SIGNS: Reviewed. GENERAL: Well-developed in no acute distress. ABDOMEN: obese. Right groin wound with healthy tissue. Currently laying against patient's right thigh. Dressing currently not intact. Left side of the abdomen and pannus wound tender with palpation. Induration noted. No erythema. NEUROLOGIC: Alert and oriented. Cranial nerves II through XII grossly intact. ASSESSMENT: 1. Right groin wound and left wound of the pannus PLAN: -Continue antibiotics per infectious disease -Continue local wound care -Continue supportive care Physician Dairy Clerk note has been reviewed by physician. Signing provider agrees with the documented findings, assessment, and plan of care. Objective - Vital Signs Vital signs: Vital Signs Temp 97.9 F 07/18/22 11:12 Pulse 89 07/18/22 11:12 Resp 18 07/18/22 11:12 BP 91/67 07/18/22 11:12 Pulse Ox 97 07/18/22 11:12 FiO2 Intake & Output 07/17/22 07/18/22 07/18/22 18:59 06:59 18:59 Output Total 350 350 Balance -350 -350 Output: Urine 350 350 Other: Voiding Method Indwelling Catheter Indwelling Catheter Indwelling Catheter # Voids 1 0 - Labs CBC & Chem 7: 07/16/22 05:22 07/16/22 05:22 Labs: Abnormal Lab Results - Last 24 Hours (Table) 07/17/22 07/17/22 07/18/22 Range/Units 17:12 20:28 07:05 POC Glucose (mg/dL) 121 H 170 H 112 H (70-110) mg/dL 07/18/22 Range/Units 11:11 POC Glucose (mg/dL) 146 H (70-110) mg/dL Microbiology - Last 24 Hours (Table) 07/13/22 02:22 Anaerobic Culture - Final Abdomen 07/15/22 21:42 Catheter Tip Culture - Preliminary Catheter Tip Coagulase Negative Staph 07/15/22 14:59 Blood Culture - Preliminary Blood No Growth after 48 hours
[2022-07-18] MEDS: DIGOXIN 125 MCG TAB PO SCH (15:36)
[2022-07-18 16:17] LABS: Glucose,Whole Blood 126 mg/dL (70-110)
--- NOTE | 2022-07-18 18:33 | P.PN ---
Progress Note - Text Progress Note Date: 07/17/22 Chief Complaint: Draining wounds This is a pleasant 62-year-old patient, follows with Dr. Smooth Bob. Chronic stable medical conditions include diabetes, GERD, essential hypertension, hypothyroid. Chronic low back pain. Ovarian cancer treatment for chemo and radiation treatment. September 2021 was having significant vaginal bleeding. 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 No metastatic disease. She was not felt to be surgical candidate and was to receive 3 cycles of carboplatin/Taxol followed by radiation and 3 additional cycles of the above. She completed radiation on 03/14/2022. Started back on the carbotaxol April 03 and was status post cycle 6 day 1 on May 16. May 2022: Stroke found in the left coronary radiata on the posterior aspect of left frontal lobe. Was placed on eliquis for atrial fibrillation. For last 3 months significant wound on the right groin and abdominal pannus. Has had repeated debridement including the latest being on June 29 for necrotic tissue by Dr. Kasper. Was discharged in July 06. On IV vancomycin and IV ertapenem. Discharged to [facility] Patient now returns to the ER with increasing foul discharge from the wounds. Has a strong odor to it. Appetite has decreased. Having couple of bowel movements a day. Has a PICC line. Tired. Patient is nonambulatory. Has had some fever and chills. Uncontrolled atrial fibrillation the ER. Admitted with worsening wound on the abdomen pannus in the right groin. Infected. In uncontrolled atrial flutter. Started on IV vancomycin and IV ert apenem. Heart controlled rate medications adjusted. July 14: Laying in bed. Having some pain at the wound site. Heart rate better controlled. On IV antibiotics. Wound care. July 15: Up in bed. Eating some. Some pain. On IV antibiotics. July 16: Reclining. Appetite better. Selective about food.. IV antibiotics. Pain better. July 17: Hospital computer system is down. Oral intake fair. Blood pressure running on the lower side. Follow with cardiology. Wound care to continue. Current medications reviewed Past medical history to include: Atrial fibrillation, diabetes, GERD, hypertension, hypothyroid, ovarian cancer with chemo and radiation treatment. Depression. Stroke. Social history: At rehab [facility]. started smoking as a teenager and stopped in 1994. No alcohol. Family history: Father of lung cancer Physical examination: VITAL SIGNS: 97.8, 90, 18, 97/65, 92% GENERAL: Reclining, awake, tired EYES: Pupils equal. Conjunctiva normal. HEENT: External appearance of nose and ears normal, oral cavity dry mucous membranes NECK: JVD unable to assess; masses not palpable. HEART: Heart sounds irregular; slight edema. LUNGS: Respiratory rate normal; distant breath sound. ABDOMEN: Soft, nontender, liver spleen not palpable, no masses palpable. Perianal wounds C wound care notes. PSYCH: Answering questions appropriately MUSCULOSKELETAL:No Clubbing/cyanosis;muscles-grossly intact, evidence of OA DERMATOLOGICAL: Dressing over the wound in the abdominal pannus and in the right groin. See nursing notes for pictures INVESTIGATIONS, reviewed in the clinical context: July 16: Hemoglobin 8.5 platelets 404 percussion 3.9 creatinine 0.99 July 15: WBC 6.2 hemoglobin 7.2 platelets 410 progression 3.7 creatinine 0.84 July 14: WBC 7.9 hemoglobin 10.4 patriots 133 potassium 4.9 creatinine 0.9 White count 6.6 hemoglobin 8.4 platelets 570 potassium 4.2 creatinine 0.8 TSH 3.1 EKG tracing personally reviewed by me-atrial fibrillation. Rate 125 Previous admission: 06/01/2022: BUN 19 creatinine 0.93 MRI brain without contrast: Acute/subacute CVA of the left coronary radiata on the posterior aspect of the left frontal lobe. Nonspecific white matter changes. 2-D echocardiogram: EF 55-60%, severe LVH Assessment and plan: -Acute on Chronic Large wound on the abdominal pannus and right groin: Being followed by Dr. Kasper from general surgery and ID. Patient most recently had deep debridement of necrotic tissue on June 29. Patient was discharged on IV ertapenem and IV vancomycin.: Follow with surgery-not for surgical intervention. On IV ertapenem and IV vancomycin. -Persistent atrial fibrillation, rate controlled Eliquis. Lopressor 50 mg twice a day. Coreg discontinued. Cardizem 30 mg 3 times a day -Recent C. diff colitis from recent antibiotics: Complete course Oral vancomycin 125 mg by mouth 4 times a day. -Recent stroke in the left [place] radiata on the posterior aspect of the left frontal lobe. suspected to be embolic from underlying paroxysmal atrial fibrillation, on 05/18/2022 Eliquis -Chronic dysphagia from underlying stroke : Chopped diet -Diabetes mellitus type 2 on oral hypoglycemic Sliding scale. Follow Accu-Cheks -Normocytic of anemia of chronic disease -Morbid obesity BMI 53.3 Weight loss measures -GERD Prilosec 20 mg -Essential hypertension, Lopressor, Cardizem -Chronic urinary stress incontinence Ditropan XL 10 mg a day -Hypothyroid Synthroid 200 g a day -Acute on chronic medical debility multifactorial -DO NOT RESUSCITATE On IV vancomycin and IV ertapenem. As per surgery, probably no surgical intervention. Other medications to continue.
--- NOTE | 2022-07-18 18:38 | P.PN ---
Progress Note - Text Progress Note Date: 07/18/22 Chief Complaint: Draining wounds This is a pleasant 62-year-old patient, follows with Dr. Smooth Bob. Chronic stable medical conditions include diabetes, GERD, essential hypertension, hypothyroid. Chronic low back pain. Ovarian cancer treatment for chemo and radiation treatment. September 2021 was having significant vaginal bleeding. 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 No metastatic disease. She was not felt to be surgical candidate and was to receive 3 cycles of carboplatin/Taxol followed by radiation and 3 additional cycles of the above. She completed radiation on 03/14/2022. Started back on the carbotaxol April 03 and was status post cycle 6 day 1 on May 16. May 2022: Stroke found in the left coronary radiata on the posterior aspect of left frontal lobe. Was placed on eliquis for atrial fibrillation. For last 3 months significant wound on the right groin and abdominal pannus. Has had repeated debridement including the latest being on June 29 for necrotic tissue by Dr. Kasper. Was discharged in July 06. On IV vancomycin and IV ertapenem. Discharged to [facility] Patient now returns to the ER with increasing foul discharge from the wounds. Has a strong odor to it. Appetite has decreased. Having couple of bowel movements a day. Has a PICC line. Tired. Patient is nonambulatory. Has had some fever and chills. Uncontrolled atrial fibrillation the ER. Admitted with worsening wound on the abdomen pannus in the right groin. Infected. In uncontrolled atrial flutter. Started on IV vancomycin and IV ert apenem. Heart controlled rate medications adjusted. July 14: Laying in bed. Having some pain at the wound site. Heart rate better controlled. On IV antibiotics. Wound care. July 15: Up in bed. Eating some. Some pain. On IV antibiotics. July 16: Reclining. Appetite better. Selective about food.. IV antibiotics. Pain better. July 17: Hospital computer system is down. Oral intake fair. Blood pressure running on the lower side. Follow with cardiology. Wound care to continue. July 18: Patient atrial fibrillation rate up to 140s. Cardiology consulted. Patient removed to telemetry floor. Discussed with the patient. Eating fair. On IV antibiotics. No surgical intervention of the warts per Dr. Streeter. Active Medications Acetaminophen (Acetaminophen Tab 325 Mg Tab) 650 mg PO Q4H PRN PRN Reason: Fever Hydrocodone Bitart/Acetaminophen (Hydrocodone/Apap 10-325mg 1 Each Tab) 1 each PO Q4HR PRN PRN Reason: Pain Last Admin: 07/18/22 05:49 Dose: 1 each Apixaban (Apixaban 5 Mg Tab) 5 mg PO BID@0800,1600 [facility]; Protocol Last Admin: 07/18/22 15:36 Dose: 5 mg Atorvastatin Calcium (Atorvastatin 40 Mg Tab) 40 mg PO HS@2000 [facility] Last Admin: 07/17/22 20:46 Dose: 40 mg Collagenase (Collagenase 250 Unit/Gm Ointment 30 Gm Tube) 1 applic TOPICAL DAILY [facility]; Protocol Last Admin: 07/18/22 09:07 Dose: 1 applic Dextrose/Water (Dextrose 50% Syringe 50 Ml) 25 ml IVP PER PROTOCOL PRN; Protocol PRN Reason: Hypoglycemia Dextrose/Water (Dextrose 50% Syringe 50 Ml) 50 ml IVP PER PROTOCOL PRN; Protocol PRN Reason: Hypoglycemia Digoxin (Digoxin 125 Mcg Tab) 125 mcg PO DAILY [facility] Last Admin: 07/18/22 15:36 Dose: 125 mcg Docusate Sodium (Docusate 100 Mg Cap) 100 mg PO BID@0800,1600 [facility] Last Admin: 07/18/22 15:36 Dose: 100 mg Famotidine (Famotidine 20 Mg Tab) 20 mg PO DAILY [facility] Last Admin: 07/18/22 07:59 Dose: 20 mg Fentanyl (Fentanyl 50mcg/Hr Patch) 1 patch TRANSDERM Q72H [facility]; Protocol Last Admin: 07/18/22 08:04 Dose: 1 patch Sodium Chloride (Saline 0.9%) 1,000 mls @ 75 mls/hr IV .[id number] [facility] Last Admin: 07/18/22 07:53 Dose: Not Given Ceftolozane/Tazobactam 1.5 gm/ (Sodium Chloride) 100 mls @ 100 mls/hr IV Q8HR [facility]; Protocol Last Admin: 07/18/22 16:25 Dose: 100 mls/hr Insulin Aspart (Insulin Aspart (Novolog) 100 Unit/Ml Vial) 0 unit SQ AC-TID [facility]; Protocol Last Admin: 07/18/22 12:47 Dose: Not Given Lactic Acid (Ammonium Lactate 12% Lotion 225 Gm Btl) 1 applic TOPICAL DAILY@0800 [facility]; Protocol Last Admin: 07/18/22 07:59 Dose: 1 applic Levothyroxine Sodium (Levothyroxine 100 Mcg Tab) 200 mcg PO DAILY@0800 [facility] Last Admin: 07/18/22 07:59 Dose: 200 mcg Metoprolol Tartrate (Metoprolol Tartrate 50 Mg Tab) 50 mg PO TID [facility] Last Admin: 07/18/22 15:37 Dose: 50 mg Morphine Sulfate (Morphine Sulfate 4 Mg/Ml Syringe) 4 mg IVP Q4HR PRN PRN Reason: Pain Last Admin: 07/18/22 09:01 Dose: 4 mg Multivitamins (Multivitamins, Thera 1 Each Tab) 1 each PO DAILY@0800 [facility] Last Admin: 07/18/22 07:59 Dose: 1 each Naloxone HCl (Naloxone 0.4 Mg/Ml 1 Ml Vial) 0.2 mg IV Q2M PRN PRN Reason: Opioid Reversal Nitroglycerin (Nitroglycerin Sl Tabs 0.4 Mg Tab) 0.4 mg SUBLINGUAL Q5M PRN PRN Reason: Chest Pain Nystatin (Nystatin 100,000 Unit/Gm Powd 15 Gm) 1 applic TOPICAL BID@0800,1600 [facility]; Protocol Last Admin: 07/18/22 08:00 Dose: 1 applic Oxybutynin Chloride (Oxybutynin 10 Mg Tab.Er.24) 10 mg PO DAILY@0800 [facility] Last Admin: 07/18/22 07:59 Dose: 10 mg Pantoprazole Sodium (Pantoprazole 40 Mg Tablet) 40 mg PO DAILY@1999 [facility] Last Admin: 07/17/22 20:45 Dose: 40 mg Past medical history to include: Atrial fibrillation, diabetes, GERD, hypertension, hypothyroid, ovarian cancer with chemo and radiation treatment. Depression. Stroke. Social history: At [employer]. started smoking as a teenager and stopped in 1994. No alcohol. Family history: Father of lung cancer Physical examination: VITAL SIGNS: 97.7, 88, 18, 89/59, 94% room air GENERAL: Reclining, awake, tired EYES: Pupils equal. Conjunctiva normal. HEENT: External appearance of nose and ears normal, oral cavity dry mucous membranes NECK: JVD unable to assess; masses not palpable. HEART: Heart sounds irregular; slight edema. LUNGS: Respiratory rate normal; distant breath sound. ABDOMEN: Soft, nontender, liver spleen not palpable, no masses palpable. Pe rianal wounds C wound care notes. PSYCH: Answering questions appropriately MUSCULOSKELETAL:No Clubbing/cyanosis;muscles-grossly intact, evidence of OA DERMATOLOGICAL: Dressing over the wound in the abdominal pannus and in the right groin. See nursing notes for pictures INVESTIGATIONS, reviewed in the clinical context: July 16: Hemoglobin 8.5 platelets 404 percussion 3.9 creatinine 0.99 July 15: WBC 6.2 hemoglobin 7.2 platelets 410 progression 3.7 creatinine 0.84 July 14: WBC 7.9 hemoglobin 10.4 patriots 133 potassium 4.9 creatinine 0.9 White count 6.6 hemoglobin 8.4 platelets 570 potassium 4.2 creatinine 0.8 TSH 3.1 EKG tracing personally reviewed by me-atrial fibrillation. Rate 125 Previous admission: 06/01/2022: BUN 19 creatinine 0.93 MRI brain without contrast: Acute/subacute CVA of the left coronary radiata on the posterior aspect of the left frontal lobe. Nonspecific white matter changes. 2-D echocardiogram: EF 55-60%, severe LVH Assessment and plan: -Acute on Chronic Large wound on the abdominal pannus and right groin: Being followed by Dr. Kasper from general surgery and ID. Patient most recently had deep debridement of necrotic tissue on June 29. Patient was discharged on IV ertapenem and IV vancomycin.: Follow with surgery-not for surgical intervention. On IV ertapenem and IV vancomycin. -Persistent atrial fibrillation, rate uncontrolled Eliquis. Lopressor 50 mg twice a day. Cardizem 30 mg 3 times a day . Patient move patient to telemetry floor. Consult cardiology -Recent C. diff colitis from recent antibiotics: Complete course Oral vancomycin 125 mg by mouth 4 times a day. -Recent stroke in the left [place]ohnston radiata on the posterior aspect of the left frontal lobe. suspected to be embolic from underlying paroxysmal atrial fibrillation, on 05/18/2022 Eliquis -Chronic dysphagia from underlying stroke : Chopped diet -Diabetes mellitus type 2 on oral hypoglycemic Sliding scale. Follow Accu-Cheks -Normocytic of anemia of chronic disease -Morbid obesity BMI 53.3 Weight loss measures -GERD Prilosec 20 mg -Essential hypertension, Lopressor, Cardizem -Chronic urinary stress incontinence Ditropan XL 10 mg a day -Hypothyroid Synthroid 200 g a day -Acute on chronic medical debility multifactorial -DO NOT RESUSCITATE On IV vancomycin and IV ertapenem. As per surgery, probably no surgical intervention. We'll patient to telemetry floor. Cardiology. - consulted. Discussed with patient.
[2022-07-18] MEDS: PANTOPRAZOLE 40 MG TABLET PO SCH (19:58)
[2022-07-18] MEDS: ATORVASTATIN 40 MG TAB PO SCH (19:58)
[2022-07-18 20:15] LABS: Glucose,Whole Blood 136 mg/dL (70-110)
[2022-07-19] MEDS: HYDROcodone/APAP 10-325MG 1 EACH TAB PO PRN ×4 (01:26→20:56)
[2022-07-19] MEDS: SODIUM CHLORIDE 0.9% 1,000 ML IV SCH ×2 (03:33→19:32)
[2022-07-19] MEDS: MORPHINE SULFATE 4 MG/ML SYRINGE IVP PRN (05:09)
[2022-07-19 06:01] LABS: Glucose,Whole Blood 125 mg/dL (70-110)
[2022-07-19] MEDS: INSULIN ASPART (NovoLOG) 100 UNIT/ML VIAL SQ SCH ×3 (06:15→16:56)
[2022-07-19 07:21] LABS: Anisocytosis Slight; Basophils % (A) 0 %; Eosinophils # (A) 0.3 k/uL (0-0.7); Eosinophils % (A) 3 %; HCT 26.1 % (34.0-46.0); HGB 7.8 gm/dL (11.4-16.0); Hypochromasia Marked; Lymphocytes # (A) 0.4 k/uL (1.0-4.8); Lymphocytes % (A) 4 %; MCH 29.1 pg (25.0-35.0); MCV 97.1 fL (80.0-100.0); Macrocytosis Slight; Mean Platelet Volume 7.5; Monocytes # (A) 0.6 k/uL (0-1.0); Monocytes % (A) 6 %; Neutrophils # (A) 8.5 k/uL (1.3-7.7); Neutrophils % (A) 86 %; Platelet Count 404 k/uL (150-450); Poikilocytosis Slight; RBC 2.69 m/uL (3.80-5.40); WBC 9.8 k/uL (3.8-10.6)
[2022-07-19 07:50] LABS: Calcium 7.4 mg/dL (8.4-10.2); Potassium 3.5 mmol/L (3.5-5.1)
[2022-07-19] MEDS: APIXABAN 5 MG TAB PO SCH ×2 (08:41→16:29)
[2022-07-19] MEDS: OXYBUTYNIN 10 MG TAB.ER.24 PO SCH (08:41)
[2022-07-19] MEDS: LEVOTHYROXINE 100 MCG TAB PO SCH (08:41)
[2022-07-19] MEDS: MULTIVITAMINS, THERA 1 EACH TAB PO SCH (08:41)
[2022-07-19] MEDS: METOPROLOL TARTRATE 50 MG TAB PO SCH ×3 (08:42→21:18)
[2022-07-19] MEDS: DOCUSATE 100 MG CAP PO SCH ×2 (08:43→16:31)
[2022-07-19] MEDS: NYSTATIN 100,000 UNIT/GM POWD 15 GM TOPICAL SCH ×2 (08:48→16:31)
[2022-07-19] MEDS: CEFTOLOZANE/TAZOBACTAM 1.5 GM in SODIUM CHLORIDE 0.9% 100 ML IV SCH ×3 (10:08→23:02)
[2022-07-19] MEDS: FAMOTIDINE 20 MG TAB PO SCH (10:08)
[2022-07-19] MEDS: DIGOXIN 125 MCG TAB PO SCH (10:08)
--- NOTE | 2022-07-19 10:32 | P.PN ---
Subjective Progress Note Date: 07/19/22 HISTORY OF PRESENT ILLNESS: Patient is a pleasant 62-year-old female with history of Recent CVA on 05/19/2022, persistent atrial fibrillation on Eliquis, uterine cancer undergoing chemotherapy, apparent CAD with prior "blockage with its own bypasses "likely consistent with [employer] from 2019, hypertension, hyperlipidemia, obesity, diabetes mellitus type 2. She states she used to follow with a photo retoucher out of town, does not recall their name, states she has not followed up in years. We are consulted for A fib with RVR. Patient presents to the ER from [facility] for increase pain and worsening wounds in groin and perineal area. She was recently discharged from on the hospital 07/06/22, she was admitted at that time with necrotizing/gangrenous right groin wound/pubis status post debridement of the right groin wound and left pannus with wound VAC placement with surgery. She was stabilized and discharged to [facility]. Recent echocardiogram 05/19/2022 revealed an EF of 5560 %, mild mitral regurgitation, mild tricuspid regurgitation 07/18/2022 Cardiology re-consulted for A fib with RVR. Patient seen on 5N. This morning while completing vital signs patient noted to by tachycardic with HR 120s-160s. Cardiology was notified. Patient seen and examined at bedside, no acute distress. She denies any chest pain, shortness of breath, or palpitations, li ghtheadedness or dizziness. She is currently maintained on Cardizem 30mg TID and Metoprolol tartrate 50mg BID. Unable to review telemetry today secondary to clinical access not being able to review today. HR yesterday were in the 60s- 70s. BP has been having soft blood pressures BP 89/59. EKG was performed at bedside which revealed-Patient is A fib HR 120s-130s. EKG revealed A fib with RVR HR 122. PHYSICAL EXAM: VITAL SIGNS: Reviewed. GENERAL: Well-developed in no acute distress. NECK: Supple. No JVD or thyromegaly LUNGS: Respirations even and unlabored. Lungs essentially clear to auscultation bilaterally. HEART: Irregular rate and rhythm. S1 and S2 heard. EXTREMITIES: Normal range of motion. No clubbing or cyanosis. Peripheral pulses intact. No lower extremity edema ASSESSMENT: Increased right groin and pubis wound pain Persistent atrial fibrillation with RVR, on Eliquis Recent necrotizing/gangrenous right groin wound/pubis, with bleeding s/p debridement and wound VAC 06/29. Recent PICC line catheter tip infection with Klebsiella Recent Klebsiella bacteremia secondary to above Recent C. diff colitis Recent Acute CVA in 05/19/2022 Reported history of CAD with likely [employer] Hypertension Diabetes mellitus type 2 Uterine cancer undergoing chemotherapy with prior significant vaginal bleeding Obesity PLAN: Patients heart rates are better controlled today Continue with current dose of metoprolol and digoxin Continue telemetry monitoring Further recommendations pending patient course Nurse practitioner note has been reviewed by physician. Signing provider agrees with the documented findings, assessment, and plan of care. Objective - Vital Signs Vital signs: Vital Signs Temp 98.1 F 07/19/22 04:00 Pulse 100 07/19/22 04:00 Resp 20 07/19/22 04:00 BP 111/55 07/19/22 04:00 Pulse Ox 96 07/19/22 04:00 FiO2 Intake & Output 07/18/22 07/19/22 07/19/22 18:59 06:59 18:59 Intake Total 180 480 Output Total 625 Balance 180 -145 Intake: Oral 180 480 Output: Urine 625 Other: Voiding Method Indwelling Catheter Indwelling Catheter # Bowel Movements 1 - Labs CBC & Chem 7: 07/19/22 06:06 07/19/22 06:06 Labs: Abnormal Lab Results - Last 24 Hours (Table) 07/18/22 07/18/22 07/18/22 Range/Units 11:11 16:15 20:13 RBC (3.80-5.40) m/uL Hgb (11.4-16.0) gm/dL Hct (34.0-46.0) % MCHC (31.0-37.0) g/dL RDW (11.5-15.5) % Neutrophils # (1.3-7.7) k/uL Lymphocytes # (1.0-4.8) k/uL Chloride (98-107) mmol/L Creatinine (0.52-1.04) mg/dL Glucose (74-99) mg/dL POC Glucose (mg/dL) 146 H 126 H 136 H (70-110) mg/dL Calcium (8.4-10.2) mg/dL 07/19/22 07/19/22 07/19/22 Range/Units 05:59 06:06 06:06 RBC 2.69 L (3.80-5.40) m/uL Hgb 7.8 L (11.4-16.0) gm/dL Hct 26.1 L (34.0-46.0) % MCHC 30.0 L (31.0-37.0) g/dL RDW 18.0 H (11.5-15.5) % Neutrophils # 8.5 H (1.3-7.7) k/uL Lymphocytes # 0.4 L (1.0-4.8) k/uL Chloride 108 H (98-107) mmol/L Creatinine 1.13 H (0.52-1.04) mg/dL Glucose 114 H (74-99) mg/dL POC Glucose (mg/dL) 125 H (70-110) mg/dL Calcium 7.4 L (8.4-10.2) mg/dL Microbiology - Last 24 Hours (Table) 07/15/22 21:42 Catheter Tip Culture - Final Catheter Tip Staphylococcus epidermidis 07/15/22 14:59 Blood Culture - Preliminary Blood No Growth after 72 hours 07/13/22 02:22 Anaerobic Culture - Final Abdomen
[2022-07-19 11:48] LABS: Glucose,Whole Blood 130 mg/dL (70-110)
--- NOTE | 2022-07-19 13:13 | P.PN ---
Subjective Progress Note Date: 07/19/22 CHIEF COMPLAINT: Abdominal wound HISTORY OF PRESENT ILLNESS: Patient required transfer to cardiac floor yesterday due to A. fib with RVR. She's followed by cardiology. Patient tolerating diet. She reports her pain is controlled. Afebrile. WBC 9.8 Hgb 7.8 platelets 404 sodium 140 potassium 3.5 creatinine 1.13 PHYSICAL EXAM: VITAL SIGNS: Reviewed. GENERAL: Well-developed in no acute distress. ABDOMEN: obese. Right groin wound with healthy tissue. pannus with tenderness, induration noted, no erythema NEUROLOGIC: Alert and oriented. Cranial nerves II through XII grossly intact. ASSESSMENT: 1. Right groin wound and pannus wound PLAN: -Continue antibiotics per infectious disease -Continue local wound care -Continue supportive care Physician Van Driver Helper note has been reviewed by physician. Signing provider agrees with the documented findings, assessment, and plan of care. I have personally seen and examined the patient, reviewed the CEO [employer]ER /PAs history, exam and MDM and agree with the assessment and plan as written. Based on total visit time, I have performed more than 50% of the visit. As above: Patient without new complaints. Heart rate has been stable. Right groin wound extending to the labia is clean with excellent granulation tissue. The inferior aspect of the pannus wound is stable but does reveal persistent ischemic changes. Continue Santyl to that location. We'll follow. Objective - Vital Signs Vital signs: Vital Signs Temp 98.1 F 07/19/22 04:00 Pulse 100 07/19/22 04:00 Resp 20 07/19/22 04:00 BP 111/55 07/19/22 04:00 Pulse Ox 96 07/19/22 04:00 FiO2 Intake & Output 07/18/22 07/19/22 07/19/22 18:59 06:59 18:59 Intake Total 180 480 240 Output Total 625 Balance 180 -145 240 Weight 145.15 kg Intake: Oral 180 480 240 Output: Urine 625 Other: Voiding Method Indwelling Catheter Indwelling Catheter # Bowel Movements 1 - Labs CBC & Chem 7: 07/19/22 06:06 07/19/22 06:06 Labs: Abnormal Lab Results - Last 24 Hours (Table) 07/18/22 07/18/22 07/19/22 Range/Units 16:15 20:13 05:59 RBC (3.80-5.40) m/uL Hgb (11.4-16.0) gm/dL Hct (34.0-46.0) % MCHC (31.0-37.0) g/dL RDW (11.5-15.5) % Neutrophils # (1.3-7.7) k/uL Lymphocytes # (1.0-4.8) k/uL Chloride (98-107) mmol/L Creatinine (0.52-1.04) mg/dL Glucose (74-99) mg/dL POC Glucose (mg/dL) 126 H 136 H 125 H (70-110) mg/dL Calcium (8.4-10.2) mg/dL 07/19/22 07/19/22 07/19/22 Range/Units 06:06 06:06 11:45 RBC 2.69 L (3.80-5.40) m/uL Hgb 7.8 L (11.4-16.0) gm/dL Hct 26.1 L (34.0-46.0) % MCHC 30.0 L (31.0-37.0) g/dL RDW 18.0 H (11.5-15.5) % Neutrophils # 8.5 H (1.3-7.7) k/uL Lymphocytes # 0.4 L (1.0-4.8) k/uL Chloride 108 H (98-107) mmol/L Creatinine 1.13 H (0.52-1.04) mg/dL Glucose 114 H (74-99) mg/dL POC Glucose (mg/dL) 130 H (70-110) mg/dL Calcium 7.4 L (8.4-10.2) mg/dL Microbiology - Last 24 Hours (Table) 07/15/22 21:42 Catheter Tip Culture - Final Catheter Tip Staphylococcus epidermidis 07/15/22 14:59 Blood Culture - Preliminary Blood No Growth after 72 hours 07/13/22 02:22 Anaerobic Culture - Final Abdomen
[2022-07-19] MEDS: AMMONIUM LACTATE 12% LOTION 225 GM BTL TOPICAL SCH (13:41)
--- NOTE | 2022-07-19 13:55 | P.PN ---
Progress Note - Text Progress Note Date: 07/19/22 Chief Complaint: Draining wounds This is a pleasant 62-year-old patient, follows with Dr. Smooth Bob. Chronic stable medical conditions include diabetes, GERD, essential hypertension, hypothyroid. Chronic low back pain. Ovarian cancer treatment for chemo and radiation treatment. September 2021 was having significant vaginal bleeding. 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 No metastatic disease. She was not felt to be surgical candidate and was to receive 3 cycles of carboplatin/Taxol followed by radiation and 3 additional cycles of the above. She completed radiation on 03/14/2022. Started back on the carbotaxol April 03 and was status post cycle 6 day 1 on May 16. May 2022: Stroke found in the left coronary radiata on the posterior aspect of left frontal lobe. Was placed on eliquis for atrial fibrillation. For last 3 months significant wound on the right groin and abdominal pannus. Has had repeated debridement including the latest being on June 29 for necrotic tissue by Dr. Kasper. Was discharged in July 06. On IV vancomycin and IV ertapenem. Discharged to [facility] Patient now returns to the ER with increasing foul discharge from the wounds. Has a strong odor to it. Appetite has decreased. Having couple of bowel movements a day. Has a PICC line. Tired. Patient is nonambulatory. Has had some fever and chills. Uncontrolled atrial fibrillation the ER. Admitted with worsening wound on the abdomen pannus in the right groin. Infected. In uncontrolled atrial flutter. Started on IV vancomycin and IV ert apenem. Heart controlled rate medications adjusted. July 14: Laying in bed. Having some pain at the wound site. Heart rate better controlled. On IV antibiotics. Wound care. July 15: Up in bed. Eating some. Some pain. On IV antibiotics. July 16: Reclining. Appetite better. Selective about food.. IV antibiotics. Pain better. July 17: Hospital computer system is down. Oral intake fair. Blood pressure running on the lower side. Follow with cardiology. Wound care to continue. July 18: Patient atrial fibrillation rate up to 140s. Cardiology consulted. Patient removed to telemetry floor. Discussed with the patient. Eating fair. On IV antibiotics. No surgical intervention of the warts per Dr. Streeter. July 19: On telemetry floor. Atrial fibrillation. Heart rate 100. Oral intake fair. On digoxin and Lopressor. No palpitation. Active Medications Acetaminophen (Acetaminophen Tab 325 Mg Tab) 650 mg PO Q4H PRN PRN Reason: Fever Hydrocodone Bitart/Acetaminophen (Hydrocodone/Apap 10-325mg 1 Each Tab) 1 each PO Q4HR PRN PRN Reason: Pain Last Admin: 07/19/22 08:47 Dose: 1 each Apixaban (Apixaban 5 Mg Tab) 5 mg PO BID@0800,1600 [facility]; Protocol Last Admin: 07/19/22 08:41 Dose: 5 mg Atorvastatin Calcium (Atorvastatin 40 Mg Tab) 40 mg PO HS@1999 [facility] Last Admin: 07/18/22 19:58 Dose: 40 mg Collagenase (Collagenase 250 Unit/Gm Ointment 30 Gm Tube) 1 applic TOPICAL DAILY [facility]; Protocol Last Admin: 07/18/22 09:07 Dose: 1 applic Dextrose/Water (Dextrose 50% Syringe 50 Ml) 25 ml IVP PER PROTOCOL PRN; Prot ocol PRN Reason: Hypoglycemia Dextrose/Water (Dextrose 50% Syringe 50 Ml) 50 ml IVP PER PROTOCOL PRN; Protocol PRN Reason: Hypoglycemia Digoxin (Digoxin 125 Mcg Tab) 125 mcg PO DAILY [facility] Last Admin: 07/19/22 10:08 Dose: 125 mcg Docusate Sodium (Docusate 100 Mg Cap) 100 mg PO BID@0800,1600 [facility] Last Admin: 07/19/22 08:43 Dose: Not Given Famotidine (Famotidine 20 Mg Tab) 20 mg PO DAILY [facility] Last Admin: 07/19/22 10:08 Dose: 20 mg Fentanyl (Fentanyl 50mcg/Hr Patch) 1 patch TRANSDERM Q72H [facility]; Protocol Last Admin: 07/18/22 08:04 Dose: 1 patch Sodium Chloride (Saline 0.9%) 1,000 mls @ 10 mls/hr IV .Q24H [facility] Last Admin: 07/19/22 03:33 Dose: 75 mls/hr Ceftolozane/Tazobactam 1.5 gm/ (Sodium Chloride) 100 mls @ 100 mls/hr IV Q8HR [facility]; Protocol Last Admin: 07/19/22 10:08 Dose: 100 mls/hr Insulin Aspart (Insulin Aspart (Novolog) 100 Unit/Ml Vial) 0 unit SQ AC-TID [facility]; Protocol Last Admin: 07/19/22 12:14 Dose: Not Given Lactic Acid (Ammonium Lactate 12% Lotion 225 Gm Btl) 1 applic TOPICAL DAILY@0800 [facility]; Protocol Last Admin: 07/19/22 13:41 Dose: Not Given Levothyroxine Sodium (Levothyroxine 100 Mcg Tab) 200 mcg PO DAILY@0800 [facility] Last Admin: 07/19/22 08:41 Dose: 200 mcg Metoprolol Tartrate (Metoprolol Tartrate 50 Mg Tab) 50 mg PO TID [facility] Last Admin: 07/19/22 08:42 Dose: 50 mg Morphine Sulfate (Morphine Sulfate 4 Mg/Ml Syringe) 4 mg IVP Q4HR PRN PRN Reason: Pain Last Admin: 07/19/22 05:09 Dose: 4 mg Multivitamins (Multivitamins, Thera 1 Each Tab) 1 each PO DAILY@0800 [facility] Last Admin: 07/19/22 08:41 Dose: 1 each Naloxone HCl (Naloxone 0.4 Mg/Ml 1 Ml Vial) 0.2 mg IV Q2M PRN PRN Reason: Opioid Reversal Nitroglycerin (Nitroglycerin Sl Tabs 0.4 Mg Tab) 0.4 mg SUBLINGUAL Q5M PRN PRN Reason: Chest Pain Nystatin (Nystatin 100,000 Unit/Gm Powd 15 Gm) 1 applic TOPICAL BID@0800,1600 [facility]; Protocol Last Admin: 07/19/22 08:48 Dose: 1 applic Oxybutynin Chloride (Oxybutynin 10 Mg Tab.Er.24) 10 mg PO DAILY@0800 [facility] Last Admin: 07/19/22 08:41 Dose: 10 mg Pantoprazole Sodium (Pantoprazole 40 Mg Tablet) 40 mg PO DAILY@1999 [facility] Last Admin: 07/18/22 19:58 Dose: 40 mg Past medical history to include: Atrial fibrillation, diabetes, GERD, hypertension, hypothyroid, ovarian cancer with chemo and radiation treatment. Depression. Stroke. Social history: At [employer]. started smoking as a teenager and stopped in 1994. No alcohol. Family history: Father of lung cancer Physical examination: VITAL SIGNS: 98.1, 100, 20, 111/55, 96% room air GENERAL: Reclining, awake, tired EYES: Pupils equal. Conjunctiva normal. HEENT: External appearance of nose and ears normal, oral cavity dry mucous membranes NECK: JVD unable to assess; masses not palpable. HEART: Heart sounds irregular; slight edema. LUNGS: Respiratory rate normal; distant breath sound. ABDOMEN: Soft, nontender, liver spleen not palpable, no masses palpable. Perianal wounds C wound care notes. PSYCH: Answering questions appropriately. NEUROLOGICAL: Dysarthria. Slight facial asymmetry from recent stroke MUSCULOSKELETAL:No Clubbing/cyanosis;muscles-grossly intact, evidence of OA DERMATOLOGICAL: Dressing over the wound in the abdominal pannus and in the right groin. See nursing notes for pictures INVESTIGATIONS, reviewed in the clinical context: Blood cultures: Enterococcus faecalis, Staphylococcus epidermidis. Abdominal wound culture: Pseudomonas aeruginosa, Pneumoniae July 19: Count 9.8 hemoglobin 7.8 potassium 3.5, creatinine 1.13 July 16: Hemoglobin 8.5 platelets 404 percussion 3.9 creatinine 0.99 July 15: WBC 6.2 hemoglobin 7.2 platelets 410 progression 3.7 creatinine 0.84 July 14: WBC 7.9 hemoglobin 10.4 patriots 133 potassium 4.9 creatinine 0.9 White count 6.6 hemoglobin 8.4 platelets 570 potassium 4.2 creatinine 0.8 TSH 3.1 EKG tracing personally reviewed by me-atrial fibrillation. Rate 125 Previous admission: 06/01/2022: BUN 19 creatinine 0.93 MRI brain without contrast: Acute/subacute CVA of the left coronary radiata on the posterior aspect of the left frontal lobe. Nonspecific white matter changes. 2-D echocardiogram: EF 55-60%, severe LVH Assessment and plan: -Acute on Chronic Large wound on the abdominal pannus and right groin: Being followed by Dr. Kasper from general surgery and ID. Patient most recently had deep debridement of necrotic tissue on June 29. Patient was discharged on IV ertapenem and IV vancomycin.: Follow with surgery-not for surgical intervention. On IV zerbaxa -Persistent atrial fibrillation, rate better controlled Eliquis. Lopressor 50 mg 3 times a day , digoxin . -Recent C. diff colitis from recent antibiotics: Complete course Oral vancomycin 125 mg by mouth 4 times a day. -Recent stroke in the left [place] radiata on the posterior aspect of the left frontal lobe. suspected to be embolic from underlying paroxysmal atrial fibrillation, on 05/18/2022 Eliquis -Chronic dysphagia from underlying stroke : Chopped diet. -Dysarthria from recent stroke -Diabetes mellitus type 2 on oral hypoglycemic Sliding scale. Follow Accu-Cheks -Normocytic of anemia of chronic disease -Morbid obesity BMI 53.3 Weight loss measures -GERD Prilosec 20 mg -Essential hypertension, Lopressor, Cardizem -Chronic urinary stress incontinence Ditropan XL 10 mg a day -Hypothyroid Synthroid 200 g a day -Acute on chronic medical debility multifactorial -DO NOT RESUSCITATE IV zerbaxa. Heart rate better controlled. If remains stable. DC ECF tomorrow.
--- NOTE | 2022-07-19 16:44 | P.PN ---
Subjective Progress Note Date: 07/16/22 Principal diagnosis: Bacteremia and abdominal wound infection Patient is a 62-year-old female presenting to the hospital with increasing drainage from abdominal wound concerning for infection in this patient also having a positive blood culture with Enterococcus faecalis. on today's evaluation that is 07/16/2022, The patient remains to be afebrile, the patient is breathing comfortably on room air the patient denies having any chest pain shortness breath or cough no abdominal pain has slight decrease in intensity no nausea vomiting and no diarrhea Objective - Vital Signs Vital signs: Vital Signs Temp 98.1 F 07/16/22 17:34 Pulse 107 H 07/16/22 17:34 Resp 18 07/16/22 17:34 BP 105/68 07/16/22 17:34 Pulse Ox 97 07/16/22 17:34 FiO2 Intake & Output 07/16/22 07/16/22 07/17/22 06:59 18:59 06:59 Output Total 450 475 Balance -450 -475 Output: Urine 450 475 Other: Voiding Method Indwelling Catheter Indwelling Catheter - Exam GENERAL DESCRIPTION: An elderly female lying in bed in no distress RESPIRATORY SYSTEM: Unlabored breathing , decreased breath sounds at bases HEART: S1 S2 regular rate and rhythm , ABDOMEN: Soft , right lower abdominal/groin wound is drying out, she did have a significant slough tissue on the left lower abdominal wound area EXTREMITIES: Diffuse swelling bilateral lower extremity - Labs CBC & Chem 7: 07/19/22 06:06 07/19/22 06:06 Labs: Abnormal Lab Results - Last 24 Hours (Table) 07/16/22 07/16/22 07/16/22 Range/Units 05: 05:22 07:03 RBC 2.87 L (3.80-5.40) m/uL Hgb 8.5 L (11.4-16.0) gm/dL Hct 28.5 L (34.0-46.0) % MCHC 29.8 L (31.0-37.0) g/dL RDW 18.2 H (11.5-15.5) % Lymphocytes # 0.3 L (1.0-4.8) k/uL POC Glucose (mg/dL) 116 H (70-110) mg/dL Calcium 7.8 L (8.4-10.2) mg/dL C-Reactive Protein 21.4 H (<1.0) mg/dL 07/16/22 07/16/22 07/16/22 Range/Units 11:13 17:36 20:16 RBC (3.80-5.40) m/uL Hgb (11.4-16.0) gm/dL Hct (34.0-46.0) % MCHC (31.0-37.0) g/dL RDW (11.5-15.5) % Lymphocytes # (1.0-4.8) k/uL POC Glucose (mg/dL) 148 H 112 H 155 H (70-110) mg/dL Calcium (8.4-10.2) mg/dL C-Reactive Protein (<1.0) mg/dL Microbiology - Last 24 Hours (Table) 07/15/22 14:59 Blood Culture - Preliminary Blood No Growth after 24 hours 07/15/22 21:42 Catheter Tip Culture - Preliminary Catheter Tip 07/13/22 02:21 Gram Stain - Final Abdomen Wound Culture - Preliminary Pseudomonas aeruginosa Klebsiella pneumoniae Assessment and Plan (1) Wound infection Current Visit: Yes Status: Acute Code(s): T14.8XXA - OTHER INJURY OF UNSPECIFIED BODY REGION, INITIAL ENCOUNTER; L08.9 - LOCAL INFECTION OF THE SKIN AND SUBCUTANEOUS TISSUE, UNSP SNOMED Code(s): 52986925 (2) Bacteremia Current Visit: Yes Status: Acute Code(s): R78.81 - BACTEREMIA SNOMED Code(s): 0830887 (3) Right groin wound Current Visit: No Status: Acute Code(s): S31.109A - UNSP OPN WND ABD WALL, UNSP Q W/O PENET PERIT CAV, INIT SNOMED Code(s): 603141332 Plan: 1patient is a 62-year-old female with multiple comorbidities and did have a large right groin wound from recent surgical debridement and also wound to the left side of the pannus status post surgical department now presenting to the hospital with increasing drainage and concern for possible wound infection local cultures are not showing a gram-negative and a Pseudomonas. 2enterococcal bacteremia likely related to the midline as abdominal wound cultures Did grew Pseudomonas and ESBL Klebsiella 3Midline has been discontinued and the tip has been sent for the culture 4 Patient to continue with Zerbexa which should cover for both the pseudomonas and ESBL Klebsiella
--- NOTE | 2022-07-19 16:45 | P.PN ---
Subjective Progress Note Date: 07/17/22 Principal diagnosis: Bacteremia and abdominal wound infection Patient is a 62-year-old female presenting to the hospital with increasing drainage from abdominal wound concerning for infection in this patient also having a positive blood culture with Enterococcus faecalis. on today's evaluation that is 07/17/2022, The patient denies having any fever or any chills, breathing comfortably patient denies having any chest pain or shortness with occasional cough denies any worsening of her abdominal pain and no diarrhea no nausea no vomiting Objective - Vital Signs Vital signs: Vital Signs Temp 97.8 F 07/17/22 10:50 Pulse 90 07/17/22 10:50 Resp 18 07/17/22 10:50 BP 97/65 07/17/22 10:50 Pulse Ox 92 L 07/17/22 10:50 FiO2 Intake & Output 07/17/22 07/17/22 07/18/22 06:59 18:59 06:59 Output Total 425 350 Balance -425 -350 Output: Urine 425 350 Other: Voiding Method Indwelling Catheter Indwelling Catheter # Voids 1 - Exam GENERAL DESCRIPTION: An elderly female lying in bed in no distress RESPIRATORY SYSTEM: Unlabored breathing , decreased breath sounds at bases HEART: S1 S2 regular rate and rhythm , ABDOMEN: Soft , right lower abdominal/groin wound is drying out, she did have a significant slough tissue on the left lower abdominal wound area EXTREMITIES: Diffuse swelling bilateral lower extremity - Labs CBC & Chem 7: 07/19/22 06:06 07/19/22 06:06 Labs: Abnormal Lab Results - Last 24 Hours (Table) 07/17/22 07/17/22 07/17/22 Range/Units 07:03 11:15 17:12 POC Glucose (mg/dL) 116 H 152 H 121 H (70-110) mg/dL 07/17/22 Range/Units 20:28 POC Glucose (mg/dL) 170 H (70-110) mg/dL Microbiology - Last 24 Hours (Table) 07/15/22 14:59 Blood Culture - Preliminary Blood No Growth after 48 hours Assessment and Plan (1) Wound infection Current Visit: Yes Status: Acute Code(s): T14.8XXA - OTHER INJURY OF UNSPECIFIED BODY REGION, INITIAL ENCOUNTER; L08.9 - LOCAL INFECTION OF THE SKIN AND SUBCUTANEOUS TISSUE, UNSP SNOMED Code(s): 09453459 (2) Bacteremia Current Visit: Yes Status: Acute Code(s): R78.81 - BACTEREMIA SNOMED Code(s): 5706989 (3) Right groin wound Current Visit: No Status: Acute Code(s): S31.109A - UNSP OPN WND ABD WALL, UNSP Q W/O PENET PERIT CAV, INIT SNOMED Code(s): 970172463 Plan: 1patient is a 62-year-old female with multiple comorbidities and did have a large right groin wound from recent surgical debridement and also wound to the left side of the pannus status post surgical department now presenting to the hospital with increasing drainage and concern for possible wound infection local cultures are not showing a gram-negative and a Pseudomonas. 2enterococcal bacteremia likely related to the midline as abdominal wound cultures Did grew Pseudomonas and ESBL Klebsiella 3Midline has been discontinued and the tip has been sent for the culture, Which are currently pending 4 Patient seem to have shown some clinical improvement and will continue with Zerbexa which should cover for both the pseudomonas and ESBL Klebsiella
[2022-07-19] MEDS ORDERED: VANCOMYCIN IV PER PHARMACY 1 EACH MISC MISCELLANE PRN (16:46)
--- NOTE | 2022-07-19 16:47 | P.PN ---
Subjective Progress Note Date: 07/18/22 Principal diagnosis: Bacteremia and abdominal wound infection Patient is a 62-year-old female presenting to the hospital with increasing drainage from abdominal wound concerning for infection in this patient also having a positive blood culture with Enterococcus faecalis. on today's evaluation that is 07/18/2022, The patient remains to be afebrile, the patient is breathing comfortably on room air but denies having any chest pain occasional cough no nausea no bleeding no worsening abdominal pain and no diarrhea Objective - Vital Signs Vital signs: Vital Signs Temp 97.7 F 07/18/22 07:45 Pulse 88 07/18/22 07:45 Resp 18 07/18/22 07:45 BP 89/59 07/18/22 07:45 Pulse Ox 94 L 07/18/22 07:45 FiO2 Intake & Output 07/17/22 07/18/22 07/18/22 18:59 06:59 18:59 Output Total 350 350 Balance -350 -350 Output: Urine 350 350 Other: Voiding Method Indwelling Catheter Indwelling Catheter # Voids 1 0 - Exam GENERAL DESCRIPTION: An elderly female lying in bed in no distress RESPIRATORY SYSTEM: Unlabored breathing , decreased breath sounds at bases HEART: S1 S2 regular rate and rhythm , ABDOMEN: Soft , right lower abdominal/groin wound is drying out, she did have a significant slough tissue on the left lower abdominal wound area EXTREMITIES: Diffuse swelling bilateral lower extremity - Labs CBC & Chem 7: 07/19/22 06:06 07/19/22 06:06 Labs: Abnormal Lab Results - Last 24 Hours (Table) 07/17/22 07/17/22 07/17/22 Range/Units 11:15 17:12 20:28 POC Glucose (mg/dL) 152 H 121 H 170 H (70-110) mg/dL 07/18/22 Range/Units 07:05 POC Glucose (mg/dL) 112 H (70-110) mg/dL Microbiology - Last 24 Hours (Table) 07/15/22 21:42 Catheter Tip Culture - Preliminary Catheter Tip Coagulase Negative Staph 07/15/22 14:59 Blood Culture - Preliminary Blood No Growth after 48 hours Assessment and Plan (1) Wound infection Current Visit: Yes Status: Acute Code(s): T14.8XXA - OTHER INJURY OF UNSPECIFIED BODY REGION, INITIAL ENCOUNTER; L08.9 - LOCAL INFECTION OF THE SKIN AND SUBCUTANEOUS TISSUE, UNSP SNOMED Code(s): 31861558 (2) Bacteremia Current Visit: Yes Status: Acute Code(s): R78.81 - BACTEREMIA SNOMED Code(s): 0173356 (3) Right groin wound Current Visit: No Status: Acute Code(s): S31.109A - UNSP OPN WND ABD WALL, UNSP Q W/O PENET PERIT CAV, INIT SNOMED Code(s): 596389577 Plan: 1patient is a 62-year-old female with multiple comorbidities and did have a large right groin wound from recent surgical debridement and also wound to the left side of the pannus status post surgical department now presenting to the hospital with increasing drainage and concern for possible wound infection local cultures are not showing a gram-negative and a Pseudomonas. 2enterococcal bacteremia likely related to the midline as abdominal wound cultures Did grew Pseudomonas and ESBL Klebsiella 3Midline has been discontinued and the tip has been sent for the culture, Which are currently pending 4 Patient seem to have shown some clinical improvement , Plan is to continue with Zerbexa which should cover for both the pseudomonas and ESBL KlebsiellaX2 weeks on discharge this was discussed with the admitting physician
[2022-07-19 16:49] LABS: Glucose,Whole Blood 116 mg/dL (70-110)
--- NOTE | 2022-07-19 16:49 | P.PN ---
Subjective Progress Note Date: 07/19/22 Principal diagnosis: Bacteremia and abdominal wound infection Patient is a 62-year-old female presenting to the hospital with increasing drainage from abdominal wound concerning for infection in this patient also having a positive blood culture with Enterococcus faecalis. on today's evaluation that is 07/19/2022, Patient has been transferred to the telemetry unit because of heart rate issue, the patient is currently afebrile the patient is breathing comfortably on nasal cannula oxygen patient denies having any chest pain occasional cough no nausea vomiting, no worsening abdominal pain or diarrhea Objective - Vital Signs Vital signs: Vital Signs Temp 98.1 F 07/19/22 04:00 Pulse 100 07/19/22 04:00 Resp 20 07/19/22 04:00 BP 111/55 07/19/22 04:00 Pulse Ox 96 07/19/22 04:00 FiO2 Intake & Output 07/18/22 07/19/22 07/19/22 18:59 06:59 18:59 Intake Total 180 480 240 Output Total 625 Balance 180 -145 240 Weight 145.15 kg Intake: Oral 180 480 240 Output: Urine 625 Other: Voiding Method Indwelling Catheter Indwelling Catheter # Bowel Movements 1 - Exam GENERAL DESCRIPTION: An elderly female lying in bed in no distress RESPIRATORY SYSTEM: Unlabored breathing , decreased breath sounds at bases HEART: S1 S2 regular rate and rhythm , ABDOMEN: Soft , right lower abdominal/groin wound is drying out, she did have a significant slough tissue on the left lower abdominal wound area EXTREMITIES: Diffuse swelling bilateral lower extremity - Labs CBC & Chem 7: 07/19/22 06:06 07/19/22 06:06 Labs: Abnormal Lab Results - Last 24 Hours (Table) 07/18/22 07/18/22 07/19/22 Range/Units 16:15 20:13 05:59 RBC (3.80-5.40) m/uL Hgb (11.4-16.0) gm/dL Hct (34.0-46.0) % MCHC (31.0-37.0) g/dL RDW (11.5-15.5) % Neutrophils # (1.3-7.7) k/uL Lymphocytes # (1.0-4.8) k/uL Chloride (98-107) mmol/L Creatinine (0.52-1.04) mg/dL Glucose (74-99) mg/dL POC Glucose (mg/dL) 126 H 136 H 125 H (70-110) mg/dL Calcium (8.4-10.2) mg/dL 07/19/22 07/19/22 07/19/22 Range/Units 06:06 06:06 11:45 RBC 2.69 L (3.80-5.40) m/uL Hgb 7.8 L (11.4-16.0) gm/dL Hct 26.1 L (34.0-46.0) % MCHC 30.0 L (31.0-37.0) g/dL RDW 18.0 H (11.5-15.5) % Neutrophils # 8.5 H (1.3-7.7) k/uL Lymphocytes # 0.4 L (1.0-4.8) k/uL Chloride 108 H (98-107) mmol/L Creatinine 1.13 H (0.52-1.04) mg/dL Glucose 114 H (74-99) mg/dL POC Glucose (mg/dL) 130 H (70-110) mg/dL Calcium 7.4 L (8.4-10.2) mg/dL Microbiology - Last 24 Hours (Table) 07/15/22 21:42 Catheter Tip Culture - Final Catheter Tip Staphylococcus epidermidis 07/15/22 14:59 Blood Culture - Preliminary Blood No Growth after 72 hours 07/13/22 02:22 Anaerobic Culture - Final Abdomen Assessment and Plan (1) Wound infection Current Visit: Yes Status: Acute Code(s): T14.8XXA - OTHER INJURY OF UNSPECIFIED BODY REGION, INITIAL ENCOUNTER; L08.9 - LOCAL INFECTION OF THE SKIN AND SUBCUTANEOUS TISSUE, UNSP SNOMED Code(s): 82571341 (2) Bacteremia Current Visit: Yes Status: Acute Code(s): R78.81 - BACTEREMIA SNOMED Code(s): 4413550 (3) Right groin wound Current Visit: No Status: Acute Code(s): S31.109A - UNSP OPN WND ABD WALL, UNSP Q W/O PENET PERIT CAV, INIT SNOMED Code(s): 996787676 Plan: 1patient is a 62-year-old female with multiple comorbidities and did have a large right groin wound from recent surgical debridement and also wound to the left side of the pannus status post surgical department now presenting to the hospital with increasing drainage and concern for possible wound infection local cultures are not showing a gram-negative and a Pseudomonas. 2enterococcal bacteremia likely related to the midline as abdominal wound cu ltures Did grew Pseudomonas and ESBL Klebsiella 3Midline has been discontinued and the tip has been sent for the culture, Catheter tip culture has been finalized with coagulase-negative staph that is oxacillin resistant we will add vancomycin 4 Patient to continue with Zerbexa which should cover for both the pseudomonas and ESBL Klebsiella
[2022-07-19] MEDS ORDERED: VANCOMYCIN 2,000 MG in SODIUM CHLORIDE 0.9% 500 ML 500 ML IVPB SCH (18:00)
[2022-07-19 20:13] LABS: Glucose,Whole Blood 120 mg/dL (70-110)
[2022-07-19] MEDS: PANTOPRAZOLE 40 MG TABLET PO SCH (21:18)
[2022-07-19] MEDS: ATORVASTATIN 40 MG TAB PO SCH (21:18)
[2022-07-19] MEDS: COLLAGENASE 250 UNIT/GM OINTMENT 30 GM TUBE TOPICAL SCH (23:03)
[2022-07-20 03:48] VITALS: RESP 18
[2022-07-20 06:05] LABS: Glucose,Whole Blood 89 mg/dL (70-110)
[2022-07-20] MEDS: INSULIN ASPART (NovoLOG) 100 UNIT/ML VIAL SQ SCH ×2 (06:18→12:15)
[2022-07-20] MEDS: HYDROcodone/APAP 10-325MG 1 EACH TAB PO PRN ×2 (06:23→16:17)
[2022-07-20 08:17] LABS: Calcium 7.7 mg/dL (8.4-10.2); Potassium 3.5 mmol/L (3.5-5.1)
[2022-07-20] MEDS ORDERED: Potassium Replacement Protocol 1 EACH MISC MISCELLANE PRN (09:38)
[2022-07-20] MEDS: LEVOTHYROXINE 100 MCG TAB PO SCH (09:45)
[2022-07-20] MEDS: DOCUSATE 100 MG CAP PO SCH ×2 (09:45→16:14)
[2022-07-20] MEDS: APIXABAN 5 MG TAB PO SCH ×2 (09:45→16:14)
[2022-07-20] MEDS: MULTIVITAMINS, THERA 1 EACH TAB PO SCH (09:45)
[2022-07-20] MEDS: METOPROLOL TARTRATE 50 MG TAB PO SCH ×2 (09:45→16:14)
[2022-07-20] MEDS: NYSTATIN 100,000 UNIT/GM POWD 15 GM TOPICAL SCH ×2 (09:45→17:18)
[2022-07-20] MEDS: DIGOXIN 125 MCG TAB PO SCH (09:45)
[2022-07-20] MEDS: FAMOTIDINE 20 MG TAB PO SCH (09:45)
[2022-07-20] MEDS: OXYBUTYNIN 10 MG TAB.ER.24 PO SCH (09:45)
[2022-07-20] MEDS: AMMONIUM LACTATE 12% LOTION 225 GM BTL TOPICAL SCH (09:46)
[2022-07-20] MEDS: COLLAGENASE 250 UNIT/GM OINTMENT 30 GM TUBE TOPICAL SCH (09:46)
[2022-07-20] MEDS: POTASSIUM CHLORIDE ER 20 MEQ TAB.ER PO SCH ×2 (09:51→12:15)
[2022-07-20] MEDS: MORPHINE SULFATE 4 MG/ML SYRINGE IVP PRN (09:51)
[2022-07-20] MEDS: CEFTOLOZANE/TAZOBACTAM 1.5 GM in SODIUM CHLORIDE 0.9% 100 ML IV SCH ×2 (10:49→17:18)
--- NOTE | 2022-07-20 11:35 | P.PN ---
Subjective Progress Note Date: 07/20/22 HISTORY OF PRESENT ILLNESS: Patient is a pleasant 62-year-old female with history of Recent CVA on 05/19/2022, persistent atrial fibrillation on Eliquis, uterine cancer undergoing chemotherapy, apparent CAD with prior "blockage with its own bypasses "likely consistent with [employer] SCRE[employer]ING from 2019, hypertension, hyperlipidemia, obesity, diabetes mellitus type 2. She states she used to follow with a thermostat mechanic out of town, does not recall their name, states she has not followed up in years. We are consulted for A fib with RVR. Patient presents to the ER from [facility] for increase pain and worsening wounds in groin and perineal area. She was recently discharged from on the hospital 07/06/22, she was admitted at that time with necrotizing/gangrenous right groin wound/pubis status post debridement of the right groin wound and left pannus with wound VAC placement with surgery. She was stabilized and discharged to [facility]. Recent echocardiogram 05/19/2022 revealed an EF of 5560 %, mild mitral regurgitation, mild tricuspid regurgitation 07/18/2022 Cardiology re-consulted for A fib with RVR. Patient seen on 5N. This morning while completing vital signs patient noted to by tachycardic with HR 120s-160s. Cardiology was notified. Patient seen and examined at bedside, no acute distress. She denies any chest pain, shortness of breath, or palpitations, li ghtheadedness or dizziness. She is currently maintained on Cardizem 30mg TID and Metoprolol tartrate 50mg BID. Unable to review telemetry today secondary to clinical access not being able to review today. HR yesterday were in the 60s- 70s. BP has been having soft blood pressures BP 89/59. EKG was performed at bedside which revealed-Patient is A fib HR 120s-130s. EKG revealed A fib with RVR HR 122. 07/20/2022 Patient examined this morning at the bedside. Patient denies chest pain or pre ssure. She denies shortness of breath. Telemetry reveals atrial fibrillation with controlled ventricular rates. Vital signs are stable. PHYSICAL EXAM: VITAL SIGNS: Reviewed. GENERAL: Well-developed in no acute distress. NECK: Supple. No JVD or thyromegaly LUNGS: Respirations even and unlabored. Lungs essentially clear to auscultation bilaterally. HEART: Irregular rate and rhythm. S1 and S2 heard. EXTREMITIES: Normal range of motion. No clubbing or cyanosis. Peripheral pulses intact. No lower extremity edema ASSESSMENT: Increased right groin and pubis wound pain Persistent atrial fibrillation with RVR, on Eliquis Recent necrotizing/gangrenous right groin wound/pubis, with bleeding s/p debridement and wound VAC 06/29. Recent PICC line catheter tip infection with Klebsiella Recent Klebsiella bacteremia secondary to above Recent C. diff colitis Recent Acute CVA in 05/19/2022 Reported history of CAD with likely [employer] Hypertension Diabetes mellitus type 2 Uterine cancer undergoing chemotherapy with prior significant vaginal bleeding Obesity PLAN: Continue with current dose of metoprolol and digoxin Continue telemetry monitoring Stable from a cardiac standpoint We will sign off. Please reconsult if needed Nurse practitioner note has been reviewed by physician. Signing provider agrees with the documented findings, assessment, and plan of care. Objective - Vital Signs Vital signs: Vital Signs Temp 98.1 F 07/20/22 08:00 Pulse 137 H 07/20/22 08:00 Resp 18 07/20/22 08:00 BP 131/65 07/20/22 08:00 Pulse Ox 96 07/20/22 08:00 FiO2 Intake & Output 07/19/22 07/20/22 07/20/22 18:59 06:59 18:59 Intake Total 694 780 Output Total 400 300 Balance 294 480 Weight 145.15 kg Intake: Intake, IV Titration 100 Amount Ceftolozane/Tazobactam 1. 100 5 gm In Sodium Chloride 0 .9% 100 ml @ 100 mls/hr IV Q8HR [facility] Rx#:[id number] Oral 594 780 Output: Urine 400 300 Other: Voiding Method Indwelling Catheter Indwelling Catheter Indwelling Catheter - Labs CBC & Chem 7: 07/19/22 06:06 07/20/22 06:34 Labs: Abnormal Lab Results - Last 24 Hours (Table) 07/19/22 07/19/22 07/19/22 Range/Units 11:45 16:34 20:12 Chloride (98-107) mmol/L Creatinine (0.52-1.04) mg/dL POC Glucose (mg/dL) 130 H 116 H 120 H (70-110) mg/dL Calcium (8.4-10.2) mg/dL 07/20/22 Range/Units 06:34 Chloride 108 H (98-107) mmol/L Creatinine 1.15 H (0.52-1.04) mg/dL POC Glucose (mg/dL) (70-110) mg/dL Calcium 7.7 L (8.4-10.2) mg/dL Microbiology - Last 24 Hours (Table) 07/15/22 14:59 Blood Culture - Preliminary Blood No Growth after 96 hours 07/15/22 21:42 Catheter Tip Culture - Final Catheter Tip Staphylococcus epidermidis
[2022-07-20 11:42] LABS: Glucose,Whole Blood 162 mg/dL (70-110)
--- NOTE | 2022-07-20 11:50 | P.DS ---
Providers Date of admission: 07/13/22 05:58 Expected date of discharge: 07/20/22 Attending physician: Jerry Torrez Consults: 07/13/22 05:57 Consult Physician Routine Consulting Provider: Nathaly Nolasco Consult Reason/Comments: abd wound, worsening drainage Do you want consulting provider notified?: Yes, Notify in am 07/13/22 09:06 Consult Physician Stat Consulting Provider: [facility] Consult Reason/Comments: afib rvr Do you want consulting provider notified?: Yes 07/13/22 17:07 Consult Physician Stat Consulting Provider: Adama Stout Consult Reason/Comments: positive cultures Do you want consulting provider notified?: Yes 07/18/22 10:23 Consult Physician Routine Consulting Provider: Isiah Mcpherson Consult Reason/Comments: uncontrolled AF Do you want consulting provider notified?: Yes Primary care physician: [facility] Hospital Course: Chief Complaint: Draining wounds This is a pleasant 62-year-old patient, follows with Dr. Smooth Bob. Chronic stable medical conditions include diabetes, GERD, essential hypertension, hypothyroid. Chronic low back pain. Ovarian cancer treatment for chemo and radiation treatment. September 2021 was having significant vaginal bleeding. 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 No metastatic disease. She was not felt to be surgical candidate and was to receive 3 cycles of carboplatin/Taxol followed by radiation and 3 additional cycles of the above. She completed radiation on 03/14/2022. Started back on the carbotaxol April 03 and was status post cycle 6 day 1 on May 16. May 2022: Stroke found in the left coronary radiata on the posterior aspect of left frontal lobe. Was placed on eliquis for atrial fibrillation. For last 3 months significant wound on the right groin and abdominal pannus. Has had repeated debridement including the latest being on June 29 for necrotic tissue by Dr. Kasper. Was discharged in July 06. On IV vancomycin and IV ertapenem. Discharged to [facility] Patient now returns to the ER with increasing foul discharge from the wounds. Has a strong odor to it. Appetite has decreased. Having couple of bowel movements a day. Has a PICC line. Tired. Patient is nonambulatory. Has had some fever and chills. Uncontrolled atrial fibrillation the ER. Admitted with worsening wound on the abdomen pannus in the right groin. Infected. In uncontrolled atrial flutter. Started on IV vancomycin and IV erta penem. Heart controlled rate medications adjusted. July 14: Laying in bed. Having some pain at the wound site. Heart rate better controlled. On IV antibiotics. Wound care. July 15: Up in bed. Eating some. Some pain. On IV antibiotics. July 16: Reclining. Appetite better. Selective about food.. IV antibiotics. Pain better. July 17: Hospital computer system is down. Oral intake fair. Blood pressure running on the lower side. Follow with cardiology. Wound care to continue. July 18: Patient atrial fibrillation rate up to 140s. Cardiology consulted. Patient removed to telemetry floor. Discussed with the patient. Eating fair. On IV antibiotics. No surgical intervention of the warts per Dr. Streeter. July 19: On telemetry floor. Atrial fibrillation. Heart rate 100. Oral intake fair. On digoxin and Lopressor. No palpitation. July 20: Patient getting a midline today. Catheter tip culture finalized with coagulase-negative staph that is oxacillin resistant and vancomycin was added yesterday. Had a lengthy talk with the patient and the manager telemarketing. Patient will [facility] back to the [facility]. Questions answered. Wound care to continue. Patient oral intake is fair. Patient is afebrile with normal white count. Discussion and discharge planning more than 35 minutes Past medical history to include: Atrial fibrillation, diabetes, GERD, hypertension, hypothyroid, ovarian cancer with chemo and radiation treatment. Depression. Stroke. Social history: At [employer] [facility] [employer]. started smoking as a teenager and stopped in 1994. No alcohol. Family history: Father of lung cancer Physical examination: VITAL SIGNS: 98.1, 101, 18, 131/65, 96% room air GENERAL: Reclining, awake, comfortable EYES: Pupils equal. Conjunctiva normal. HEENT: External appearance of nose and ears normal, oral cavity dry mucous membranes NECK: JVD unable to assess; masses not palpable. HEART: Heart sounds irregular; slight edema. LUNGS: Respiratory rate normal; distant breath sound. ABDOMEN: Soft, nontender, liver spleen not palpable, no masses palpable. Perianal wounds C wound care notes. PSYCH: Answering questions appropriately. NEUROLOGICAL: Dysarthria. Slight facial asymmetry from recent stroke MUSCULOSKELETAL:No Clubbing/cyanosis;muscles-grossly intact, evidence of OA DERMATOLOGICAL: Dressing over the wound in the abdominal pannus and in the right groin. See nursing notes for pictures INVESTIGATIONS, reviewed in the clinical context: Blood cultures: Enterococcus faecalis, Staphylococcus epidermidis-oxacillin resistance. Abdominal wound culture: Pseudomonas aeruginosa, Pneumoniae July 19: Count 9.8 hemoglobin 7.8 potassium 3.5, creatinine 1.13 July 16: Hemoglobin 8.5 platelets 404 percussion 3.9 creatinine 0.99 July 15: WBC 6.2 hemoglobin 7.2 platelets 410 progression 3.7 creatinine 0.84 July 14: WBC 7.9 hemoglobin 10.4 patriots 133 potassium 4.9 creatinine 0.9 White count 6.6 hemoglobin 8.4 platelets 570 potassium 4.2 creatinine 0.8 TSH 3.1 EKG tracing personally reviewed by me-atrial fibrillation. Rate 125 Previous admission: 06/01/2022: BUN 19 creatinine 0.93 MRI brain without contrast: Acute/subacute CVA of the left coronary radiata on the posterior aspect of the left frontal lobe. Nonspecific white matter changes. 2-D echocardiogram: EF 55-60%, severe LVH Assessment and plan: -Acute on Chronic Large wound on the abdominal pannus and right groin: followed by Dr. Kasper from general surgery and ID. most recently had deep debridement of necrotic tissue on June 29. discharged on IV ertapenem and IV vancomycin.: This admission for surgery-not for surgical intervention. On IV zerbaxa to continue. -Sepsis with positive blood cultures for Enterococcus faecalis and Staphylococcus epidermidis oxacillin resistance. IV vancomycin -Persistent atrial fibrillation, rate better controlled Eliquis. Lopressor 50 mg 3 times a day , digoxin . -Recent C. diff colitis from recent antibiotics: Resolved Complete course Oral vancomycin 125 mg by mouth 4 times a day. -Recent stroke in the left [place] radiata on the posterior aspect of the left frontal lobe. suspected to be embolic from underlying paroxysmal atrial fibrillation, on 05/18/2022 Eliquis -Chronic dysphagia from underlying stroke : Chopped diet. -Dysarthria from recent stroke -Diabetes mellitus type 2 on oral hypoglycemic Sliding scale. Follow Accu-Cheks -Normocytic of anemia of chronic disease -Morbid obesity BMI 53.3 Weight loss measures -GERD Prilosec 20 mg -Essential hypertension, Lopressor, -Chronic urinary stress incontinence Ditropan XL 10 mg a day -Hypothyroid Synthroid 200 g a day -Acute on chronic medical debility multifactorial -DO NOT RESUSCITATE Disposition: [facility] Plan - Discharge Summary Discharge Rx Participant: No New Discharge Prescriptions: New Psyllium Husk 100% [Metamucil Packet] 6 gm PO DAILY #1 packet Collagenase [Santyl Ointment] 1 applic TOPICAL DAILY each Metoprolol Tartrate [Lopressor] 50 mg PO TID tab HYDROcodone/APAP 10-325MG [[place] 10-325] 1 each PO Q4HR PRN #18 tab PRN Reason: Pain Digoxin [Lanoxin] 125 mcg PO DAILY tab Continue Pro Stat 1 can PO TID Atorvastatin [Lipitor] 40 mg PO HS@2000 Nystatin 100,000 Unit/gm Powd [Mycostatin Powder] 1 applic TOPICAL BID@0800,1600 Famotidine [Pepcid] 20 mg PO DAILY tab Ammonium Lactate Lotion [Lac-Hydrin 12% Lotion] 1 applic TOPICAL DAILY@0800 Esomeprazole Magnesium [NexIUM] 20 mg PO DAILY@2000 Multivitamins, Thera [Multivitamin (formulary)] 1 tab PO DAILY@0800 fentaNYL 50MCG/HR PATCH [Duragesic 50MCG/HR] 50 mcg TRANSDERM Q72H #1 patch Nitroglycerin Sl Tabs [Nitrostat] 0.4 mg SL Q5M PRN PRN Reason: Chest Pain Levothyroxine Sodium 200 mcg PO DAILY@0800 Oxybutynin ER [Ditropan Xl] 10 mg PO DAILY@0800 Acetaminophen Tab [Tylenol] 650 mg PO Q4H PRN PRN Reason: Fever Apixaban [Eliquis] 5 mg PO BID@0800,1600 Ensure 1 can PO BID@0800,1600 Insulin Lispro [humaLOG Kwikpen] See Protocol SQ ACHS Discontinued Acetaminophen/Diphenhydramine [Tylenol PM 500-25mg] 2 tab PO HS PRN PRN Reason: Insomnia HYDROcodone/APAP 10-325MG [[place] 10-325] 1 tab PO Q4HR PRN 3 Days #12 tab PRN Reason: Pain polyethylene glycoL 3350 [Polyethylene Glycol 3350] 17 gm PO DAILY@0800 PRN #0 PRN Reason: Constipation Ertapenem [INVanz] 1 gm IVPB Q24H #10 each Vancomycin Oral Solution 125 mg PO Q6HR 14 Days ml Docusate [Colace] 100 mg PO BID@0800,1600 carvediloL [Coreg] 6.25 mg PO BID@0800,1600 tab Discharge Medication List Levothyroxine Sodium 200 mcg PO DAILY@0800 10/10/21 [History] Nitroglycerin Sl Tabs [Nitrostat] 0.4 mg SL Q5M PRN 10/10/21 [History] Oxybutynin ER [Ditropan Xl] 10 mg PO DAILY@0800 05/18/22 [History] Acetaminophen Tab [Tylenol] 650 mg PO Q4H PRN 06/22/22 [History] Apixaban [Eliquis] 5 mg PO BID@0800,1600 06/22/22 [History] Atorvastatin [Lipitor] 40 mg PO HS@199906/22/22 [History] Ensure 1 can PO BID@0800,1600 06/22/22 [History] Insulin Lispro [humaLOG Kwikpen] See Protocol SQ ACHS 06/22/22 [History] Nystatin 100,000 Unit/gm Powd [Mycostatin Powder] 1 applic TOPICAL BID@0800,1600 06/22/22 [History] Pro Stat 1 can PO TID 06/22/22 [History] Famotidine [Pepcid] 20 mg PO DAILY tab 07/05/22 [Rx] Ammonium Lactate Lotion [Lac-Hydrin 12% Lotion] 1 applic TOPICAL DAILY@79907/13/22 [History] Esomeprazole Magnesium [NexIUM] 20 mg PO DAILY@199907/13/22 [History] Multivitamins, Thera [Multivitamin (formulary)] 1 tab PO DAILY@0800 07/13/22 [History] Collagenase [Santyl Ointment] 1 applic TOPICAL DAILY each 07/18/22 [Rx] HYDROcodone/APAP 10-325MG [[place] 10-325] 1 each PO Q4HR PRN #18 tab 07/18/22 [Rx] Psyllium Husk 100% [Metamucil Packet] 6 gm PO DAILY #1 packet 07/18/22 [Rx] fentaNYL 50MCG/HR PATCH [Duragesic 50MCG/HR] 50 mcg TRANSDERM Q72H #1 patch 07/18/22 [Rx] Digoxin [Lanoxin] 125 mcg PO DAILY tab 07/20/22 [Rx] Metoprolol Tartrate [Lopressor] 50 mg PO TID tab 07/20/22 [Rx] Follow up Appointment(s)/Referral(s): Smooth Bob MD [Primary Care Provider] - 1-2 days Wound [facility] [NON-STAFF] - As Needed Activity/Diet/Wound Care/Special Instructions: get wound orders zerbaxa for [address] stout
[2022-07-20 12:11] VITALS: TEMP 98
--- NOTE | 2022-07-20 12:18 | P.PN ---
Subjective Progress Note Date: 07/20/22 CHIEF COMPLAINT: Abdominal wound HISTORY OF PRESENT ILLNESS: Patient has no new complaints. She is scheduled to be transferred to care home today. Afebrile. Cr 1.15 PHYSICAL EXAM: VITAL SIGNS: Reviewed. GENERAL: Well-developed in no acute distress. ABDOMEN: obese. Right groin wound with healthy tissue. pannus with tenderness, induration noted, no erythema NEUROLOGIC: Alert and oriented. Cranial nerves II through XII grossly intact. ASSESSMENT: 1. Right groin wound and pannus wound PLAN: -Patient can be discharged from surgical standpoint -Discharge antibiotics per infectious disease -Continue local wound care Physician Vehicle Controls Engineer note has been reviewed by physician. Signing provider agrees with the documented findings, assessment, and plan of care. I have personally seen and examined the patient, reviewed the MINE ENGINEERING SUPERVISOR /PAs history, exam and MDM and agree with the assessment and plan as written. Based on total visit time, I have performed more than 50% of the visit. As above: Patient has no new complaints. Denies pain currently. Wounds are stable. Continue local wound care. Objective - Vital Signs Vital signs: Vital Signs Temp 98.0 F 07/20/22 12:00 Pulse 110 H 07/20/22 12:00 Resp 18 07/20/22 12:00 BP 124/62 07/20/22 12:00 Pulse Ox 96 07/20/22 12:00 FiO2 Intake & Output 07/19/22 07/20/22 07/20/22 18:59 06:59 18:59 Intake Total 694 780 Output Total 400 300 Balance 294 480 Weight 145.15 kg Intake: Intake, IV Titration 100 Amount Ceftolozane/Tazobactam 1. 100 5 gm In Sodium Chloride 0 .9% 100 ml @ 100 mls/hr IV Q8HR [facility] Rx#:[id number] Oral 594 780 Output: Urine 400 300 Other: Voiding Method Indwelling Catheter Indwelling Catheter Indwelling Catheter - Labs CBC & Chem 7: 07/19/22 06:06 07/20/22 06:34 Labs: Abnormal Lab Results - Last 24 Hours (Table) 07/19/22 07/19/22 07/20/22 Range/Units 16:34 20:12 06:34 Chloride 108 H (98-107) mmol/L Creatinine 1.15 H (0.52-1.04) mg/dL POC Glucose (mg/dL) 116 H 120 H (70-110) mg/dL Calcium 7.7 L (8.4-10.2) mg/dL 07/20/22 Range/Units 11:25 Chloride (98-107) mmol/L Creatinine (0.52-1.04) mg/dL POC Glucose (mg/dL) 162 H (70-110) mg/dL Calcium (8.4-10.2) mg/dL Microbiology - Last 24 Hours (Table) 07/15/22 14:59 Blood Culture - Preliminary Blood No Growth after 96 hours 07/15/22 21:42 Catheter Tip Culture - Final Catheter Tip Staphylococcus epidermidis
--- NOTE | 2022-07-20 16:20 | P.PN ---
Subjective Progress Note Date: 07/20/22 Principal diagnosis: Bacteremia and abdominal wound infection Patient is a 62-year-old female presenting to the hospital with increasing drainage from abdominal wound concerning for infection in this patient also having a positive blood culture with Enterococcus faecalis. on today's evaluation that is 07/20/2022, Patient remains to be afebrile the patient is breathing comfortably on nasal cannula oxygen patient denies having any chest pain, the patient did have occasional cough not bringing up any sputum, no nausea vomiting, no worsening abdominal pain or diarrhea Objective - Vital Signs Vital signs: Vital Signs Temp 98.0 F 07/20/22 12:00 Pulse 110 H 07/20/22 12:00 Resp 18 07/20/22 12:00 BP 124/62 07/20/22 12:00 Pulse Ox 96 07/20/22 12:00 FiO2 Intake & Output 07/19/22 07/20/22 07/20/22 18:59 06:59 18:59 Intake Total 694 780 Output Total 400 300 Balance 294 480 Weight 145.15 kg Intake: Intake, IV Titration 100 Amount Ceftolozane/Tazobactam 1. 100 5 gm In Sodium Chloride 0 .9% 100 ml @ 100 mls/hr IV Q8HR [facility] Rx#:[id number] Oral 594 780 Output: Urine 400 300 Other: Voiding Method Indwelling Catheter Indwelling Catheter Indwelling Catheter - Exam GENERAL DESCRIPTION: An elderly female lying in bed in no distress RESPIRATORY SYSTEM: Unlabored breathing , decreased breath sounds at bases HEART: S1 S2 regular rate and rhythm , ABDOMEN: Soft , right lower abdominal/groin wound is drying out, she did have a significant slough tissue on the left lower abdominal wound area EXTREMITIES: Diffuse swelling bilateral lower extremity - Labs CBC & Chem 7: 07/19/22 06:06 07/20/22 06:34 Labs: Abnormal Lab Results - Last 24 Hours (Table) 07/19/22 07/19/22 07/20/22 Range/Units 16:34 20:12 06:34 Chloride 108 H (98-107) mmol/L Creatinine 1.15 H (0.52-1.04) mg/dL POC Glucose (mg/dL) 116 H 120 H (70-110) mg/dL Calcium 7.7 L (8.4-10.2) mg/dL 09/09/22 Range/Units 11:25 Chloride (98-107) mmol/L Creatinine (0.52-1.04) mg/dL POC Glucose (mg/dL) 162 H (70-110) mg/dL Calcium (8.4-10.2) mg/dL Microbiology - Last 24 Hours (Table) 07/15/22 14:59 Blood Culture - Preliminary Blood No Growth after 96 hours 07/15/22 21:42 Catheter Tip Culture - Final Catheter Tip Staphylococcus epidermidis Assessment and Plan (1) Wound infection Current Visit: Yes Status: Acute Code(s): T14.8XXA - OTHER INJURY OF UNSPECIFIED BODY REGION, INITIAL ENCOUNTER; L08.9 - LOCAL INFECTION OF THE SKIN AND SUBCUTANEOUS TISSUE, UNSP SNOMED Code(s): 91763671 (2) Bacteremia Current Visit: Yes Status: Acute Code(s): R78.81 - BACTEREMIA SNOMED Code(s): 7124841 (3) Right groin wound Current Visit: No Status: Acute Code(s): S31.109A - UNSP OPN WND ABD WALL, UNSP Q W/O PENET PERIT CAV, INIT SNOMED Code(s): 131315142 Plan: 1patient is a 62-year-old female with multiple comorbidities and did have a large right groin wound from recent surgical debridement and also wound to the left side of the pannus status post surgical department now presenting to the hospital with increasing drainage and concern for possible wound infection local cultures are not showing a gram-negative and a Pseudomonas. 2enterococcal bacteremia likely related to the midline as abdominal wound cultures Did grew Pseudomonas and ESBL Klebsiella 3Midline has been discontinued and the tip has been sent for the culture, Catheter tip culture has been finalized with coagulase-negative staph that is oxacillin resistant , plan is to continue with vancomycin for 2 weeks on discharge 4 Patient abdominal culture positive for pseudomonas and ESBL Klebsiella for the patient will continue with Zerbexa 2 weeks on discharge Time with Patient: Less than 30
[2022-07-20] MEDS ORDERED: VANCOMYCIN TROUGH DUE 1 EACH MISC MISCELLANE ONE (17:00)
[2022-07-20 17:20] VITALS: BP 136/74; PULSE 99
[2022-07-20 17:21] LABS: Glucose,Whole Blood 105 mg/dL (70-110)
[2022-07-20] MEDS ORDERED: VANCOMYCIN 2,000 MG in SODIUM CHLORIDE 0.9% 500 ML 500 ML IVPB SCH (18:00)
== END 2022-07-20 17:50 | DRG 607 ==
LOC: EC 01:45 → 4SSUR 05:58 → 3SCARD 10:04 → 4SSUR 11:04 → 5NMEDONC 17:08 → 3SCARD 07-18 12:35
PROVIDERS: ADMIT Hospitalist; ATTEND Hospitalist
PROC: 05HD33Z Insertion of Infusion Device into Right Cephalic Vein, Percutaneous Approach (ICD-10-PCS; principal; 2022-07-18 12:40)
DX: L59.8 Other specified disorders of the skin and subcutaneous tissue related to radiation (principal); R78.81 Bacteremia; I96 Gangrene, not elsewhere classified; I48.19 Other persistent atrial fibrillation; I48.92 Unspecified atrial flutter; Z68.43 Body mass index [BMI] 50.0-59.9, adult; C56.9 Malignant neoplasm of unspecified ovary; C55 Malignant neoplasm of uterus, part unspecified; I11.9 Hypertensive heart disease without heart failure; E03.9 Hypothyroidism, unspecified; F32.A Depression, unspecified; E66.01 Morbid (severe) obesity due to excess calories; E11.9 Type 2 diabetes mellitus without complications; I69.322 Dysarthria following cerebral infarction; I69.391 Dysphagia following cerebral infarction; I25.10 Atherosclerotic heart disease of native coronary artery without angina pectoris; E78.5 Hyperlipidemia, unspecified; I08.1 Rheumatic disorders of both mitral and tricuspid valves; Y84.2 Radiological procedure and radiotherapy as the cause of abnormal reaction of the patient, or of later complication, without mention of misadventure at the time of the procedure; L98.493 Non-pressure chronic ulcer of skin of other sites with necrosis of muscle; T45.1X5A Adverse effect of antineoplastic and immunosuppressive drugs, initial encounter; M79.3 Panniculitis, unspecified; B95.2 Enterococcus as the cause of diseases classified elsewhere; B96.5 Pseudomonas (aeruginosa) (mallei) (pseudomallei) as the cause of diseases classified elsewhere; R00.0 Tachycardia, unspecified; G89.29 Other chronic pain; K21.9 Gastro-esophageal reflux disease without esophagitis; N39.3 Stress incontinence (female) (male); D63.0 Anemia in neoplastic disease; R53.81 Other malaise; Z66 Do not resuscitate; M54.50 Low back pain, unspecified; Z92.3 Personal history of irradiation; Z92.21 Personal history of antineoplastic chemotherapy; Z79.84 Long term (current) use of oral hypoglycemic drugs; Z86.19 Personal history of other infectious and parasitic diseases; Z90.89 Acquired absence of other organs; Z98.890 Other specified postprocedural states; Z87.81 Personal history of (healed) traumatic fracture; Z87.891 Personal history of nicotine dependence; Z79.890 Hormone replacement therapy; Z79.899 Other long term (current) drug therapy; Z79.01 Long term (current) use of anticoagulants; Z79.4 Long term (current) use of insulin; Z80.1 Family history of malignant neoplasm of trachea, bronchus and lung; Z82.49 Family history of ischemic heart disease and other diseases of the circulatory system; Z81.2 Family history of tobacco abuse and dependence; Z88.8 Allergy status to other drugs, medicaments and biological substances; Z98.61 Coronary angioplasty status
CPT/HCPCS: 36410; 36415; 71045; 74177; 76937; 80048; 80053; 80202; 82565; 83605; 84443; 85025; 85652; 86140; 87040; 87070; 87075; 87077; 87186; 87205; 93005; 96361; 96365; 96366; 96367; 96375; 99285

== ENCOUNTER 2022-07-30 14:59 | Inpatient (IN) | payer MEDICARE, OTHER ==
[2022-07-30] MEDS ORDERED: MORPHINE SULFATE 4 MG/ML SYRINGE IV STA (15:42)
[2022-07-30] MEDS ORDERED: ONDANSETRON 4 MG/2 ML VIAL IVP STA (15:42)
[2022-07-30 16:41] LABS: Anisocytosis Slight; Basophils % (A) 0 %; Eosinophils # (A) 0.1 k/uL (0-0.7); Eosinophils % (A) 1 %; HCT 26.8 % (34.0-46.0); HGB 7.9 gm/dL (11.4-16.0); Hypochromasia Marked; Lymphocytes # (A) 0.4 k/uL (1.0-4.8); Lymphocytes % (A) 4 %; MCH 27.6 pg (25.0-35.0); MCHC 29.3 g/dL (31.0-37.0); MCV 94.2 fL (80.0-100.0); Macrocytosis Slight; Mean Platelet Volume 7.3; Monocytes # (A) 0.4 k/uL (0-1.0); Monocytes % (A) 5 %; Neutrophils # (A) 7.4 k/uL (1.3-7.7); Neutrophils % (A) 88 %; Platelet Count 381 k/uL (150-450); Poikilocytosis Slight; RBC 2.84 m/uL (3.80-5.40); RDW 18.5 % (11.5-15.5); WBC 8.4 k/uL (3.8-10.6)
[2022-07-30 16:50] LABS: INR 1.2 (<1.2); Partial Thromboplastin Time 43.3 sec (22.0-30.0)
[2022-07-30 16:55] LABS: Calcium 7.5 mg/dL (8.4-10.2); Potassium 3.4 mmol/L (3.5-5.1); Total Bilirubin 0.4 mg/dL (0.2-1.3); Total Protein 4.6 g/dL (6.3-8.2)
--- NOTE | 2022-07-30 18:29 | CT ---
EXAMINATION TYPE: CT abdomen pelvis w con CT DLP: 3860 mGycm, Automated exposure control for dose reduction was used. DATE OF EXAM: 07/30/2022 6:09 PM COMPARISON: CT abdomen pelvis most recent from 07/13/2022 CLINICAL INDICATION:Female, 62 years old with history of abdominal pain, acute, nonlocalized; abdomin al pain, acute, nonlocalized TECHNIQUE: Axial CT of the abdomen and pelvis. Sagittal and coronal reformats were created on a [email or web address] workstation. Contrast used:80ml mL of Isovue 300 with IV Contrast, Oral contrast used: without Oral Contrast FINDINGS: LOWER CHEST: Small left pleural effusion. Heart is mildly enlarged for size. ABDOMEN LIVER: Unremarkable GALLBLADDER AND BILE DUCTS: The gallbladder is distended. PANCREAS: Unremarkable. SPLEEN: Unremarkable. ADRENAL GLANDS: Unremarkable. KIDNEYS AND URETERS: No evidence of hydronephrosis or renal calculus. Left renal cyst. PELVIS BLADDER: Nondistended with Sutherland catheter in place. REPRODUCTIVE: Fluid is seen within the vagina. ABDOMEN & PELVIS STOMACH AND BOWEL: No evidence of bowel obstruction. There is a large stool burden throughout the col on. PERITONEUM: No evidence of pneumoperitoneum or free fluid. VASCULATURE: No evidence of aortic aneurysm. Atherosclerosis of the arterial vasculature. MUSCULOSKELETAL: No acute osseous abnormalities, multilevel disc degeneration changes throughout the spine of moderate to severe severity. Multilevel disc bulging with facet joint arthropathy are presen t. LYMPH NODES: No gross evidence for lymphadenopathy. SOFT TISSUE/ABDOMINAL WALL: Mild fat stranding changes along the left pannus/subcutaneous tissues. IMPRESSION: 1. No evidence for acute intraluminal process. No significant change from 07/13/2022. 2. Large stool burden throughout the colon. 3. Distended gallbladder. 4. Trace left pleural effusion. 5. Cardiomegaly. 6. Moderate to severe degeneration changes of the spine.
[2022-07-30 18:45] LABS: Appearance,Urine Turbid (Clear); Bacteria,Urine Few /hpf; Bilirubin,Urine Negative (Negative); Blood,Urine Trace (Negative); Budding Yeast,Urine Many /hpf; Color,Urine Yellow; Glucose,Urine (UA) Negative (Negative); Hyaline Casts,Urine 13 /lpf (0-2); Ketones,Urine Negative (Negative); Leukocyte Esterase,Urine Large (Negative); Mucus,Urine Few /hpf; Nitrite,Urine Negative (Negative); PH, Urine 5.5 (5.0-8.0); Protein,Urine 2+ (Negative); RBC,Urine 100 /hpf (0-5); Specific Gravity,Urine 1.039 (1.001-1.035); Squamous Epithelial Cell,Urine 3 /hpf (0-4); Urobilinogen,Urine <2.0 mg/dL (<2.0); WBC,Urine 84 /hpf (0-5)
[2022-07-30] MEDS ORDERED: VANCOMYCIN 1,000 MG in SODIUM CHLORIDE 0.9% 250 ML IVPB STA (19:13)
[2022-07-30] MEDS ORDERED: AMPICILLIN-SULBACTAM 3 GM in SODIUM CHLORIDE 0.9% 100 ML IVPB STA (19:13)
[2022-07-30] MEDS ORDERED: VANCOMYCIN IV PER PHARMACY 1 EACH MISC MISCELLANE PRN (19:14)
--- NOTE | 2022-07-30 19:23 | ED ---
General Adult HPI - General Chief complaint: Skin/Abscess/Foreign Body Stated complaint: infection Time Seen by Provider: 07/30/22 15:24 Source: patient, EMS Mode of arrival: EMS Limitations: physical limitation - History of Present Illness Initial comments: This 62-year-old female presents with complaint of pain and swelling to her left lower abdomen. She complains of a malodorous drainage as well. This is been progressing over the last week or so. She has a long and fairly complicated history. She apparently has a history of ovarian cancer which was treated with chemotherapy and radiation therapy. She has had multiple episodes of infection and her lower abdominal pannus over the past several months. She was just recently hospitalized and discharged to the skilled nursing. She denies any known fevers or chills. There is no chest pain or shortness of breath. She is nonambulatory. She has no other complaints currently. - Related Data Home Medications Medication Instructions Recorded Confirmed Levothyroxine Sodium 200 mcg PO DAILY@0800 10/10/21 07/13/22 Nitroglycerin Sl Tabs [Nitrostat] 0.4 mg SL Q5M PRN 10/10/21 07/13/22 Oxybutynin ER [Ditropan Xl] 10 mg PO DAILY@00 05/18/22 07/13/22 Acetaminophen Tab [Tylenol] 650 mg PO Q4H PRN 06/22/22 07/13/22 Apixaban [Eliquis] 5 mg PO BID@0800,1600 06/22/22 07/13/22 Atorvastatin [Lipitor] 40 mg PO HS@199906/22/22 07/13/22 Ensure 1 can PO BID@0800,1600 06/22/22 07/13/22 Insulin Lispro [humaLOG Kwikpen] See Protocol SQ ACHS 06/22/22 07/13/22 Nystatin 100,000 Unit/gm Powd 1 applic TOPICAL BID@0800,1600 06/22/22 07/13/22 [Mycostatin Powder] Pro Stat 1 can PO TID 06/22/22 07/13/22 Ammonium Lactate Lotion 1 applic TOPICAL DAILY@79907/13/22 07/13/22 [Lac-Hydrin 12% Lotion] Esomeprazole Magnesium [NexIUM] 20 mg PO DAILY@199907/13/22 07/13/22 Multivitamins, Thera [Multivitamin 1 tab PO DAILY@0800 07/13/22 07/13/22 (formulary)] Previous Rx's Medication Instructions Recorded Famotidine [Pepcid] 20 mg PO DAILY tab 07/05/22 Collagenase [Santyl Ointment] 1 applic TOPICAL DAILY each 07/18/22 HYDROcodone/APAP 10-325MG [[place] 1 each PO Q4HR PRN #18 tab 07/18/22 10-325] Psyllium Husk 100% [Metamucil 6 gm PO DAILY #1 packet 07/18/22 Packet] fentaNYL 50MCG/HR PATCH [Duragesic 50 mcg TRANSDERM Q72H #1 patch 07/18/22 50MCG/HR] Ceftolozane/Tazobactam [Zerbaxa 1.5 gm IVPB Q8HR #42 each 07/20/22 1.5 Gram Vial] Digoxin [Lanoxin] 125 mcg PO DAILY tab 07/20/22 Metoprolol Tartrate [Lopressor] 50 mg PO TID tab 07/20/22 Vancomycin HCl in 5 % Dextrose 2 gm IV Q24H #14 each 07/20/22 [Vancomycin 1 Gram/250 ml-D5w] Allergies Allergy/AdvReac Type Severity Reaction Status Date / Time No Known Allergies Allergy Verified 07/30/22 15:10 Review of Systems ROS Statement: Those systems with pertinent positive or pertinent negative responses have been documented in the HPI. ROS Other: All systems not noted in ROS Statement are negative. Past Medical History Past Medical History: Atrial Fibrillation, Cancer, Diabetes Mellitus, GERD/Reflux, Hypertension, Thyroid Disorder Additional Past Medical History / Comment(s): Pt states she has had intermittent vaginal bleeding over past one year, NIDDM type II, UTIs, hypothyroid, chronic low back pain, occasional bilateral leg pain at night. Ovarian cancer with chemo and radiation. History of Any Multi-Drug Resistant Organisms: ESBL Date of last positivie culture/infection: 06/27/22 ESBL MDRO Source:: Blood Past Surgical History: Heart Catheterization, Tonsillectomy, Uterine Ablation Additional Past Surgical History / Comment(s): Nasal fracture with surgery, wisdom teeth extractions. Past Anesthesia/Blood Transfusion Reactions: Postoperative Nausea & Vomiting (PONV) Additional Past Anesthesia/Blood Transfusion Reaction / Comment(s): Pt received blood this hospitalization without reaction. Past Psychological History: Depression Smoking Status: Former smoker Past Alcohol Use History: None Reported Past Drug Use History: None Reported - Past Family History Father Family Medical History: Cancer Additional Family Medical History / Comment(s): Father of lung cancer. He was a smoker. Mother Family Medical History: Vascular Disorder Additional Family Medical History / Comment(s): Mother of a cerebral ane urysm at the age of 58 yrs. General Exam - General Exam Comments Initial Comments: GENERAL: The patient is well nourished and well hydrated. VITAL SIGNS: Heart rate, blood pressure, respiratory rate reviewed as recorded in nurse's notes. EYES: Pupils are round and reactive. Extraocular movements are intact. No conjunctival / lid redness or swelling. ENT: No external evidence of injury, swelling, or ecchymosis. Airway is patent. Throat is clear. NECK: Nontender. No swelling or evidence of injury. No subcutaneous emphysema. Trachea is midline. No thyroid mass. HEART: Regular rate and rhythm. Good peripheral pulses. LUNGS/CHEST: Breath sounds clear and equal bilaterally. No rales, rhonchi, or wheezes. No ecchymosis, subcutaneous emphysema, or tenderness. ABDOMEN: Abdomen is morbidly obese. There is a large pannus noted to the lower left abdomen with significant induration. There is tenderness upon palpation. There is excoriation noted inferiorly which is moderately malodorous discharge identified. No palpable masses or organomegaly. No peritoneal signs. No abdominal wall swelling or ecchymosis. EXTREMITIES: No extremity tenderness. Normal muscle tone and function. No thoracolumbar tenderness. NEUROLOGIC: Sensation is grossly intact. Cranial nerve exam reveals face is symmetrical, tongue is midline, speech is clear. SKIN: No abrasions or ecchymosis is noted. No induration or masses noted. PSYCHIATRIC: Alert and oriented. Appropriate behavior and judgment. Limitations: physical limitation Course Vital Signs 07/30/22 07/30/22 07/30/22 15:04 16:01 17:00 Temperature 98.7 F Pulse Rate 89 81 85 Respiratory 18 18 18 Rate Blood Pressure 155/71 128/55 127/76 O2 Sat by Pulse 96 97 100 Oximetry 07/30/22 18:23 Temperature Pulse Rate 94 Respiratory 18 Rate Blood Pressure 132/93 O2 Sat by Pulse 100 Oximetry Medical Decision Making - Medical Decision Making The patient was seen and examined. All diagnostics are reviewed. She had an EKG done which shows chronic atrial fibrillation at a rate of 81. There is no acute ST-T wave changes identified. The QRS duration is 112, and the QTc interval is 405. She had a computed tomography scan of her abdomen and pelvis which does not show any acute findings. There is inflammation of the pannus consistent with prior CT. There is no evidence of abscess. Laboratory does show chronic anemia. Urinalysis shows a urinary tract infection and hematuria. She does have a chronic indwelling Sutherland catheter. Old records were reviewed. It appears as though patient has been admitted to Dr. Torrez multiple times in the past. He apparently is off this week and therefore case is discussed with Lily from [facility] and she is agreeable with admission with infectious disease to consult. Patient is started on Unasyn and Vancomycin. - Lab Data Result diagrams: 07/30/22 15:57 07/30/22 15:57 Lab Results 07/30/22 07/30/22 07/30/22 Range/Units 15:57 15:57 15:57 WBC 8.4 (3.8-10.6) k/uL RBC 2.84 L (3.80-5.40) m/uL Hgb 7.9 L (11.4-16.0) gm/dL Hct 26.8 L (34.0-46.0) % MCV 94.2 (80.0-100.0) fL MCH 27.6 (25.0-35.0) pg MCHC 29.3 L (31.0-37.0) g/dL RDW 18.5 H (11.5-15.5) % Plt Count 381 (150-450) k/uL MPV 7.3 Neutrophils % 88 % Lymphocytes % 4 % Monocytes % 5 % Eosinophils % 1 % Basophils % 0 % Neutrophils # 7.4 (1.3-7.7) k/uL Lymphocytes # 0.4 L (1.0-4.8) k/uL Monocytes # 0.4 (0-1.0) k/uL Eosinophils # 0.1 (0-0.7) k/uL Basophils # 0.0 (0-0.2) k/uL Hypochromasia Marked Poikilocytosis Slight Anisocytosis Slight Macrocytosis Slight PT 13.0 H (9.0-12.0) sec INR 1.2 H (<1.2) APTT 43.3 H (22.0-30.0) sec Sodium 140 (137-145) mmol/L Potassium 3.4 L (3.5-5.1) mmol/L Chloride 108 H (98-107) mmol/L Carbon Dioxide 25 (22-30) mmol/L Anion Gap 7 mmol/L BUN 17 (7-17) mg/dL Creatinine 1.04 (0.52-1.04) mg/dL Est GFR (CKD-EPI)AfAm 66 (>60 ml/min/1.73 sqM) Est GFR (CKD-EPI)NonAf 58 (>60 ml/min/1.73 sqM) Glucose 97 (74-99) mg/dL Plasma Lactic Acid James (0.7-2.0) mmol/L Calcium 7.5 L (8.4-10.2) mg/dL Total Bilirubin 0.4 (0.2-1.3) mg/dL AST 56 H (14-36) U/L ALT 19 (4-34) U/L Alkaline Phosphatase 119 (38-126) U/L Total Protein 4.6 L (6.3-8.2) g/dL Albumin 2.0 L (3.5-5.0) g/dL Lipase 36 (23-300) U/L Urine Color Urine Appearance (Clear) Urine pH (5.0-8.0) Ur Specific [place] (1.001-1.035) Urine Protein (Negative) Urine Glucose (UA) (Negative) Urine Ketones (Negative) Urine Blood (Negative) Urine Nitrite (Negative) Urine Bilirubin (Negative) Urine Urobilinogen (<2.0) mg/dL Ur Leukocyte Esterase (Negative) Urine RBC (0-5) /hpf Urine WBC (0-5) /hpf Ur Squamous Epith Cells (0-4) /hpf Urine Bacteria (None) /hpf Hyaline Casts (0-2) /lpf Urine Mucus (None) /hpf Urine Yeast (Budding) (None) /hpf 07/30/22 07/30/22 Range/Units 15:57 18:26 WBC (3.8-10.6) k/uL RBC (3.80-5.40) m/uL Hgb (11.4-16.0) gm/dL Hct (34.0-46.0) % MCV (80.0-100.0) fL MCH (25.0-35.0) pg MCHC (31.0-37.0) g/dL RDW (11.5-15.5) % Plt Count (150-450) k/uL MPV Neutrophils % % Lymphocytes % % Monocytes % % Eosinophils % % Basophils % % Neutrophils # (1.3-7.7) k/uL Lymphocytes # (1.0-4.8) k/uL Monocytes # (0-1.0) k/uL Eosinophils # (0-0.7) k/uL Basophils # (0-0.2) k/uL Hypochromasia Poikilocytosis Anisocytosis Macrocytosis PT (9.0-12.0) sec INR (<1.2) APTT (22.0-30.0) sec Sodium (137-145) mmol/L Potassium (3.5-5.1) mmol/L Chloride (98-107) mmol/L Carbon Dioxide (22-30) mmol/L Anion Gap mmol/L BUN (7-17) mg/dL Creatinine (0.52-1.04) mg/dL Est GFR (CKD-EPI)AfAm (>60 ml/min/1.73 sqM) Est GFR (CKD-EPI)NonAf (>60 ml/min/1.73 sqM) Glucose (74-99) mg/dL Plasma Lactic Acid James 0.9 (0.7-2.0) mmol/L Calcium (8.4-10.2) mg/dL Total Bilirubin (0.2-1.3) mg/dL AST (14-36) U/L ALT (4-34) U/L Alkaline Phosphatase (38-126) U/L Total Protein (6.3-8.2) g/dL Albumin (3.5-5.0) g/dL Lipase (23-300) U/L Urine Color Yellow Urine Appearance Turbid H (Clear) Urine pH 5.5 (5.0-8.0) Ur Specific [place] 1.039 H (1.001-1.035) Urine Protein 2+ H (Negative) Urine Glucose (UA) Negative (Negative) Urine Ketones Negative (Negative) Urine Blood Trace H (Negative) Urine Nitrite Negative (Negative) Urine Bilirubin Negative (Negative) Urine Urobilinogen <2.0 (<2.0) mg/dL Ur Leukocyte Esterase Large H (Negative) Urine RBC 100 H (0-5) /hpf Urine WBC 84 H (0-5) /hpf Ur Squamous Epith Cells 3 (0-4) /hpf Urine Bacteria Few H (None) /hpf Hyaline Casts 13 H (0-2) /lpf Urine Mucus Few H (None) /hpf Urine Yeast (Budding) Many H (None) /hpf Disposition Clinical Impression: Abdominal wall cellulitis, Anemia, Morbid obesity, Atrial fibrillation Disposition: ADMITTED IP TO THIS HOSP Condition: Fair Is patient prescribed a controlled substance at d/c from ED?: No Time of Disposition: : Decision Date: 07/30/22 Decision Time:
[2022-07-30] MEDS ORDERED: ACETAMINOPHEN TAB 325 MG TAB PO PRN (19:25)
[2022-07-30] MEDS ORDERED: NALOXONE 0.4 MG/ML 1 ML VIAL IV PRN (19:25)
[2022-07-30] MEDS ORDERED: ONDANSETRON 4 MG/2 ML VIAL IVP PRN (19:25)
[2022-07-30] MEDS ORDERED: HYDROcodone/APAP 5-325MG 1 EACH TAB PO PRN (19:25)
[2022-07-30] MEDS ORDERED: VANCOMYCIN 1,750 MG in SODIUM CHLORIDE 0.9% 500 ML 500 ML IVPB ONE (19:30)
[2022-07-30] MEDS ORDERED: DEXTROSE 50% SYRINGE 50 ML IVP PRN (19:32)
[2022-07-30] MEDS: MORPHINE SULFATE 4 MG/ML SYRINGE IV PRN (20:08)
[2022-07-31] MEDS ORDERED: AMPICILLIN-SULBACTAM 3 GM in SODIUM CHLORIDE 0.9% 100 ML IVPB SCH ×2 (02:00→22:00)
[2022-07-31] MEDS: AMPICILLIN-SULBACTAM 3 GM in SODIUM CHLORIDE 0.9% 100 ML IVPB SCH ×3 (05:58→22:42)
[2022-07-31 09:41] LABS: Glucose,Whole Blood 71 mg/dL (70-110)
[2022-07-31] MEDS: INSULIN ASPART (NovoLOG) 100 UNIT/ML VIAL SQ SCH ×5 (10:03→22:29)
[2022-07-31 11:29] LABS: Glucose,Whole Blood 98 mg/dL (70-110)
[2022-07-31] MEDS: PANTOPRAZOLE 40 MG/10 ML VIAL IV SCH (12:28)
[2022-07-31] MEDS: MORPHINE SULFATE 4 MG/ML SYRINGE IV PRN (12:29)
[2022-07-31] MEDS ORDERED: HYDROcodone/APAP 10-325MG 1 EACH TAB PO PRN (12:34)
[2022-07-31] MEDS ORDERED: NITROGLYCERIN SL TABS 0.4 MG TAB SUBLINGUAL PRN (12:34)
[2022-07-31] MEDS ORDERED: ACETAMINOPHEN TAB 325 MG TAB PO PRN (12:34)
[2022-07-31] MEDS ORDERED: guaiFENesin 600 MG TABLET.ER PO PRN (12:34)
[2022-07-31] MEDS ORDERED: guaiFENesin SYRUP 100MG/5ML 200 MG/10 ML CUP PO PRN (12:34)
--- NOTE | 2022-07-31 12:46 | P.HPIM ---
History of Present Illness 62-year-old the female came in with the pain and swelling in the right inguinal area with fall swelling discharge patient is already on ceftreoloneand tazobatum, patient is also found to have COVID-19 patient also found to have COVID-19 patient the will be evaluated by infectious disease wound cultures were obtained. REVIEW OF SYSTEMS: CONSTITUTIONAL: No fever, no malaise, no fatigue. HEENT: No recent visual problems or hearing problems. Denied any sore throat. CARDIOVASCULAR: No chest pain, orthopnea, PND, no palpitations, no syncope. PULMONARY: No shortness of breath, no cough, no hemoptysis. GASTROINTESTINAL: No diarrhea, no nausea, no vomiting, no abdominal pain. NEUROLOGICAL: No headaches, no weakness, no numbness. HEMATOLOGICAL: Denies any bleeding or petechiae. GENITOURINARY: Denies any burning micturition, frequency, or urgency. MUSCULOSKELETAL/RHEUMATOLOGICAL: Denies any joint pain, swelling, or any muscle pain. ENDOCRINE: Denies any polyuria or polydipsia. The rest of the 14-point review of systems is negative. PHYSICAL EXAMINATION: GENERAL: The patient is alert and oriented x3, not in any acute distress. Well developed, well nourished. HEENT: Pupils are round and equally reacting to light. EOMI. No scleral icterus. No conjunctival pallor. Normocephalic, atraumatic. No pharyngeal erythema. No thyromegaly. CARDIOVASCULAR: S1 and S2 present. No murmurs, rubs, or gallops. PULMONARY: Chest is clear to auscultation, no wheezing or crackles. ABDOMEN: Soft, nontender, nondistended, normoactive bowel sounds. No palpable organomegaly. MUSCULOSKELETAL: No joint swelling or deformity. EXTREMITIES: No cyanosis, clubbing, or pedal edema. NEUROLOGICAL: Gross neurological examination did not reveal any focal deficits. SKIN: Abscess in the right inguinal area and there is significant abdominal swelling redness Assessment and plan -Right inguinal abscess abdominal wall cellulitis, patient is presently on IV Unasyn and vancomycin infectious disease evaluated the patient -Persistent atrial fibrillation heart rate is well controlled at this time patient will be resumed on atelectasis and digoxin -Incidental finding of COVID-19 patient is on oxygen but patient chronically wears oxygen at home patient doesn't have any acute hypoxic respiratory failure -Cerebral vascular accident with the stroke the posterior aspect of the left frontal lobe and coronary data -Type 2 diabetes mellitus -Morbid obesity -Gastroesophageal reflux disease -Essential hypertension -Urinary stress incontinence -Hypothyroidism For above-mentioned chronic medical problems patient will be resumed on a ppropriate home medications DVT prophylaxis: On eliquis Past Medical History Past Medical History: Atrial Fibrillation, Cancer, Diabetes Mellitus, GERD/Reflu x, Hypertension, Thyroid Disorder Additional Past Medical History / Comment(s): Pt states she has had intermittent vaginal bleeding over past one year, NIDDM type II, UTIs, hypothyroid, chronic low back pain, occasional bilateral leg pain at night. Ovarian cancer with chemo and radiation. History of Any Multi-Drug Resistant Organisms: ESBL Date of last positivie culture/infection: 06/27/22 ESBL MDRO Source:: Blood Past Surgical History: Heart Catheterization, Tonsillectomy, Uterine Ablation Additional Past Surgical History / Comment(s): Nasal fracture with surgery, wisdom teeth extractions. Past Anesthesia/Blood Transfusion Reactions: Postoperative Nausea & Vomiting (PONV) Additional Past Anesthesia/Blood Transfusion Reaction / Comment(s): Pt received blood this hospitalization without reaction. Past Psychological History: Depression Smoking Status: Former smoker Past Alcohol Use History: None Reported Past Drug Use History: None Reported - Past Family History Father Family Medical History: Cancer Additional Family Medical History / Comment(s): Father of lung cancer. He was a smoker. Mother Family Medical History: Vascular Disorder Additional Family Medical History / Comment(s): Mother of a cerebral aneurysm at the age of 58 yrs. Medications and Allergies Home Medications Medication Instructions Recorded Confirmed Type Levothyroxine Sodium 200 mcg PO DAILY@0800 10/10/21 07/30/22 History Nitroglycerin Sl Tabs [Nitrostat] 0.4 mg SL Q5M PRN 10/10/21 07/30/22 History Oxybutynin ER [Ditropan Xl] 10 mg PO DAILY@0800 05/18/22 07/30/22 History Acetaminophen Tab [Tylenol] 650 mg PO Q4H PRN 06/22/22 07/30/22 History Apixaban [Eliquis] 5 mg PO BID@0800,1600 06/22/22 07/30/22 History Atorvastatin [Lipitor] 40 mg PO HS@199906/22/22 07/30/22 History Insulin Lispro [humaLOG Kwikpen] See Protocol SQ ACHS 06/22/22 07/30/22 History Pro Stat 30 ml PO TID 06/22/22 07/30/22 History Famotidine [Pepcid] 20 mg PO DAILY tab 07/05/22 07/30/22 Rx Ammonium Lactate Lotion 1 applic TOPICAL DAILY@0800 07/13/22 07/30/22 History [Lac-Hydrin 12% Lotion] Multivitamins, Thera [Multivitamin 1 tab PO DAILY@0800 07/13/22 07/30/22 History (formulary)] fentaNYL 50MCG/HR PATCH [Duragesic 50 mcg TRANSDERM Q72H #1 patch 07/18/22 07/30/22 Rx 50MCG/HR] Digoxin [Lanoxin] 125 mcg PO DAILY tab 07/20/22 07/30/22 Rx Metoprolol Tartrate [Lopressor] 50 mg PO TID tab 07/20/22 07/30/22 Rx Ceftolozane/Tazobactam [Zerbaxa 1.5 gm IVPB TID 07/30/22 07/30/22 History 1.5 Gram Vial] Chlorhexidine Gluconate [Hibiclens] 1 applic TOPICAL HS 07/30/22 07/30/22 History Escitalopram [Lexapro] 10 mg PO DAILY 07/30/22 07/30/22 History Ferrous Sulfate [Feosol] 325 mg PO DAILY 07/30/22 07/30/22 History HYDROcodone/APAP 10-325MG [[place] 1 tab PO Q4HR PRN 07/30/22 07/30/22 History 10-325] Ipratropium-Albuterol Nebulize 3 ml INHALATION RT-Q6H 07/30/22 07/30/22 History [Duoneb 0.5 mg-3 mg/3 ml Soln] Metamucil Packet 28% Psyllium 1 packet PO DAILY 07/30/22 07/30/22 History Omeprazole 20 mg PO DAILY 07/30/22 07/30/22 History Vancomycin/Water For Inj (Peg) 750 mg IV BID 07/30/22 07/30/22 History [Vancomycin 750 mg/150 ml Bag] guaiFENesin [Diabetic Tussin Ex] 200 mg PO Q4H PRN 07/30/22 07/30/22 History guaiFENesin [guaiFENesin ER] 600 mg PO Q12H PRN 07/30/22 07/30/22 History Allergies Allergy/AdvReac Type Severity Reaction Status Date / Time No Known Allergies Allergy Verified 07/30/22 22:14 Physical Exam Vitals: Vital Signs Temp Pulse Resp BP Pulse Ox 07/31/22 12:30 98.6 F 79 20 142/97 100 07/31/22 10:15 97.5 F L 98 18 148/90 97 07/31/22 00:45 97.0 F L 77 16 112/72 95 07/30/22 19:38 89 18 127/75 98 07/30/22 18:23 94 18 132/93 100 07/30/22 17:00 85 18 127/76 100 07/30/22 16:01 81 18 128/55 97 07/30/22 15:04 98.7 F 89 18 155/71 96 Intake and Output 07/30/22 07/31/22 07/31/22 22:59 06:59 14:59 Other: Weight 165.561 kg Results CBC & Chem 7: 07/30/22 15:57 07/30/22 15:57 Labs: Abnormal Lab Results - Last 24 Hours (Table) 07/30/22 07/30/22 07/30/22 Range/Units 15:57 15:57 15:57 RBC 2.84 L (3.80-5.40) m/uL Hgb 7.9 L (11.4-16.0) gm/dL Hct 26.8 L (34.0-46.0) % MCHC 29.3 L (31.0-37.0) g/dL RDW 18.5 H (11.5-15.5) % Lymphocytes # 0.4 L (1.0-4.8) k/uL PT 13.0 H (9.0-12.0) sec INR 1.2 H (<1.2) APTT 43.3 H (22.0-30.0) sec Potassium 3.4 L (3.5-5.1) mmol/L Chloride 108 H (98-107) mmol/L Calcium 7.5 L (8.4-10.2) mg/dL AST 56 H (14-36) U/L Total Protein 4.6 L (6.3-8.2) g/dL Albumin 2.0 L (3.5-5.0) g/dL Urine Appearance (Clear) Ur Specific [place] (1.001-1.035) Urine Protein (Negative) Urine Blood (Negative) Ur Leukocyte Esterase (Negative) Urine RBC (0-5) /hpf Urine WBC (0-5) /hpf Urine Bacteria (None) /hpf Hyaline Casts (0-2) /lpf Urine Mucus (None) /hpf Urine Yeast (Budding) (None) /hpf Coronavirus (PCR) (Not Detectd) 07/30/22 07/31/22 Range/Units 18:26 00:50 RBC (3.80-5.40) m/uL Hgb (11.4-16.0) gm/dL Hct (34.0-46.0) % MCHC (31.0-37.0) g/dL RDW (11.5-15.5) % Lymphocytes # (1.0-4.8) k/uL PT (9.0-12.0) sec INR (<1.2) APTT (22.0-30.0) sec Potassium (3.5-5.1) mmol/L Chloride (98-107) mmol/L Calcium (8.4-10.2) mg/dL AST (14-36) U/L Total Protein (6.3-8.2) g/dL Albumin (3.5-5.0) g/dL Urine Appearance Turbid H (Clear) Ur Specific [place] 1.039 H (1.001-1.035) Urine Protein 2+ H (Negative) Urine Blood Trace H (Negative) Ur Leukocyte Esterase Large H (Negative) Urine RBC 100 H (0-5) /hpf Urine WBC 84 H (0-5) /hpf Urine Bacteria Few H (None) /hpf Hyaline Casts 13 H (0-2) /lpf Urine Mucus Few H (None) /hpf Urine Yeast (Budding) Many H (None) /hpf Coronavirus (PCR) Detected A (Not Detectd) Microbiology - Last 24 Hours (Table) 07/30/22 18:26 Urine Culture - Preliminary Urine,Voided
[2022-07-31] MEDS ORDERED: IPRATROPIUM-ALBUTEROL 3 ML NEB INHALATION SCH (14:00)
[2022-07-31] MEDS: ALBUTEROL HFA INHALER INHALATION SCH ×2 (15:38→20:40)
[2022-07-31] MEDS: METOPROLOL TARTRATE 50 MG TAB PO SCH ×2 (16:17→21:58)
[2022-07-31] MEDS: APIXABAN 5 MG TAB PO SCH (16:17)
[2022-07-31 16:27] LABS: Glucose,Whole Blood 92 mg/dL (70-110)
[2022-07-31] MEDS: VANCOMYCIN 1,750 MG in SODIUM CHLORIDE 0.9% 500 ML 500 ML IVPB SCH (19:04)
[2022-07-31] MEDS: ATORVASTATIN 40 MG TAB PO SCH (21:58)
[2022-07-31 22:06] LABS: Glucose,Whole Blood 119 mg/dL (70-110)
--- NOTE | 2022-07-31 23:11 | P.CONS ---
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 difficile colitis that has been treated with recent admission to the hospital and did have a evidence of Enterococcus faecalis bacteremia thought to be related to be midline which was discontinued catheter was positive for coagulase-negative staph patient abdominal culture positive for ESBL Klebsiella and Carbapenem resistant Pseudomonas the patient was [facility] to the [facility] on Zerbaxa and vancomycin patient is now brought back to the ER from the [facility] with concern for worsening lower abdominal wound and having malodorous drainage that has been progressively worse over the last week or so patient complaining of increasing pain to the area describing it more of a sharp 7-8 out of 10 radiation patient denies having any headache or chest pain she did have some shortness of breath and occasional cough but no sputum production patient on presentation to the hospital was afebrile and no fever have been recorded subsequently patient did have a no hypoxemia currently 96% on 2 L nasal cannula. Did have a normal white count kidney function was normal urine is positive she did have positive COVID test patient did have a CT abdominal pelvis no evidence for acute interabdominal process no significantly large stool burden distended gallbladder patient was started on Unasyn and vancomycin infectious disease was consulted for further management of antibiotic therapy Past Medical History Past Medical History: Atrial Fibrillation, Cancer, Diabetes Mellitus, GERD/Refl ux, Hypertension, Thyroid Disorder Additional Past Medical History / Comment(s): Pt states she has had intermittent vaginal bleeding over past one year, NIDDM type II, UTIs, hypothyroid, chronic low back pain, occasional bilateral leg pain at night. Ovarian cancer with chemo and radiation. History of Any Multi-Drug Resistant Organisms: ESBL Year Discovered:: 06/27/22 ESBL MDRO Source:: Blood Past Surgical History: Heart Catheterization, Tonsillectomy, Uterine Ablation Additional Past Surgical History / Comment(s): Nasal fracture with surgery, wi sdom teeth extractions. Past Anesthesia/Blood Transfusion Reactions: Postoperative Nausea & Vomiting (PONV) Additional Past Anesthesia/Blood Transfusion Reaction / Comm: Pt received blood this hospitalization without reaction. Past Psychological History: Depression Smoking Status: Former smoker Past Alcohol Use History: None Reported Past Drug Use History: None Reported - Past Family History Father Family Medical History: Cancer Additional Family Medical History / Comment(s): Father of lung cancer. He was a smoker. Mother Family Medical History: Vascular Disorder Additional Family Medical History / Comment(s): Mother of a cerebral aneurysm at the age of 58 yrs. Medications and Allergies Home Medications Medication Instructions Recorded Confirmed Type Levothyroxine Sodium 200 mcg PO DAILY@0800 10/10/21 07/30/22 History Nitroglycerin Sl Tabs [Nitrostat] 0.4 mg SL Q5M PRN 10/10/21 07/30/22 History Oxybutynin ER [Ditropan Xl] 10 mg PO DAILY@0800 05/18/22 07/30/22 History Acetaminophen Tab [Tylenol] 650 mg PO Q4H PRN 06/22/22 07/30/22 History Apixaban [Eliquis] 5 mg PO BID@0800,1600 06/22/22 07/30/22 History Atorvastatin [Lipitor] 40 mg PO HS@199906/22/22 07/30/22 History Insulin Lispro [humaLOG Kwikpen] See Protocol SQ ACHS 06/22/22 07/30/22 History Pro Stat 30 ml PO TID 06/22/22 07/30/22 History Famotidine [Pepcid] 20 mg PO DAILY tab 07/05/22 07/30/22 Rx Ammonium Lactate Lotion 1 applic TOPICAL DAILY@0807/13/22 07/30/22 History [Lac-Hydrin 12% Lotion] Multivitamins, Thera [Multivitamin 1 tab PO DAILY@0800 07/13/22 07/30/22 History (formulary)] fentaNYL 50MCG/HR PATCH [Duragesic 50 mcg TRANSDERM Q72H #1 patch 07/18/22 07/30/22 Rx 50MCG/HR] Digoxin [Lanoxin] 125 mcg PO DAILY tab 07/20/22 07/30/22 Rx Metoprolol Tartrate [Lopressor] 50 mg PO TID tab 07/20/22 07/30/22 Rx Ceftolozane/Tazobactam [Zerbaxa 1.5 gm IVPB TID 07/30/22 07/30/22 History 1.5 Gram Vial] Chlorhexidine Gluconate [Hibiclens] 1 applic TOPICAL HS 07/30/22 07/30/22 History Escitalopram [Lexapro] 10 mg PO DAILY 07/30/22 07/30/22 History Ferrous Sulfate [Feosol] 325 mg PO DAILY 07/30/22 07/30/22 History HYDROcodone/APAP 10-325MG [[place] 1 tab PO Q4HR PRN 07/30/22 07/30/22 History 10-325] Ipratropium-Albuterol Nebulize 3 ml INHALATION RT-Q6H 07/30/22 07/30/22 History [Duoneb 0.5 mg-3 mg/3 ml Soln] Metamucil Packet 28% Psyllium 1 packet PO DAILY 07/30/22 07/30/22 History Omeprazole 20 mg PO DAILY 07/30/22 07/30/22 History Vancomycin/Water For Inj (Peg) 750 mg IV BID 07/30/22 07/30/22 History [Vancomycin 750 mg/150 ml Bag] guaiFENesin [Diabetic Tussin Ex] 200 mg PO Q4H PRN 07/30/22 07/30/22 History guaiFENesin [guaiFENesin ER] 600 mg PO Q12H PRN 07/30/22 07/30/22 History Allergies Allergy/AdvReac Type Severity Reaction Status Date / Time No Known Allergies Allergy Verified 07/30/22 22:14 Physical Exam Vitals: Vital Signs Temp Pulse Resp BP Pulse Ox 07/31/22 10:15 97.5 F L 98 18 148/90 97 07/31/22 00:45 97.0 F L 77 16 112/72 95 07/30/22 19:38 89 18 127/75 98 07/30/22 18:23 94 18 132/93 100 07/30/22 17:00 85 18 127/76 100 07/30/22 16:01 81 18 128/55 97 07/30/22 15:04 98.7 F 89 18 155/71 96 Intake and Output 07/30/22 07/31/22 07/31/22 22:59 06:59 14:59 Other: Weight 165.561 kg Results CBC & Chem 7: 07/30/22 15:57 07/31/22 17:11 Labs: Abnormal Lab Results - Last 24 Hours (Table) 07/30/22 07/30/22 07/30/22 Range/Units 15:57 15:57 15:57 RBC 2.84 L (3.80-5.40) m/uL Hgb 7.9 L (11.4-16.0) gm/dL Hct 26.8 L (34.0-46.0) % MCHC 29.3 L (31.0-37.0) g/dL RDW 18.5 H (11.5-15.5) % Lymphocytes # 0.4 L (1.0-4.8) k/uL PT 13.0 H (9.0-12.0) sec INR 1.2 H (<1.2) APTT 43.3 H (22.0-30.0) sec Potassium 3.4 L (3.5-5.1) mmol/L Chloride 108 H (98-107) mmol/L Calcium 7.5 L (8.4-10.2) mg/dL AST 56 H (14-36) U/L Total Protein 4.6 L (6.3-8.2) g/dL Albumin 2.0 L (3.5-5.0) g/dL Urine Appearance (Clear) Ur Specific [place] (1.001-1.035) Urine Protein (Negative) Urine Blood (Negative) Ur Leukocyte Esterase (Negative) Urine RBC (0-5) /hpf Urine WBC (0-5) /hpf Urine Bacteria (None) /hpf Hyaline Casts (0-2) /lpf Urine Mucus (None) /hpf Urine Yeast (Budding) (None) /hpf Coronavirus (PCR) (Not Detectd) 07/30/22 07/31/22 Range/Units 18:26 00:50 RBC (3.80-5.40) m/uL Hgb (11.4-16.0) gm/dL Hct (34.0-46.0) % MCHC (31.0-37.0) g/dL RDW (11.5-15.5) % Lymphocytes # (1.0-4.8) k/uL PT (9.0-12.0) sec INR (<1.2) APTT (22.0-30.0) sec Potassium (3.5-5.1) mmol/L Chloride (98-107) mmol/L Calcium (8.4-10.2) mg/dL AST (14-36) U/L Total Protein (6.3-8.2) g/dL Albumin (3.5-5.0) g/dL Urine Appearance Turbid H (Clear) Ur Specific [place] 1.039 H (1.001-1.035) Urine Protein 2+ H (Negative) Urine Blood Trace H (Negative) Ur Leukocyte Esterase Large H (Negative) Urine RBC 100 H (0-5) /hpf Urine WBC 84 H (0-5) /hpf Urine Bacteria Few H (None) /hpf Hyaline Casts 13 H (0-2) /lpf Urine Mucus Few H (None) /hpf Urine Yeast (Budding) Many H (None) /hpf Coronavirus (PCR) Detected A (Not Detectd) Microbiology - Last 24 Hours (Table) 07/30/22 18:26 Urine Culture - Preliminary Urine,Voided Assessment and Plan Plan: 1patient with a chronic nonhealing wound to bilateral groin area in this patient with a 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 she did have extensive debridement of the wound on last admission one of the cultures are positive for ESBL Klebsiella last urine culture positive for ESBL Klebsiella CRE Pseudomonas and did have a staph epi infection of the midline which was discontinued now presenting with the worsening wound and drainage CT abdominal pelvis did not show any evidence of abscess 2-patient did have a positive COVID test with mild respiratory symptoms 3-discontinue Unasyn and continue vancomycin 4-and Zerbaxa 5-General surgery evaluation for surgical debridement and deep culture We will follow on clinical condition and cultures to further adjust medication if needed Thank you for this consultation will follow this patient along with you
[2022-07-31] MEDS: CEFTOLOZANE/TAZOBACTAM 1.5 GM in SODIUM CHLORIDE 0.9% 100 ML IV SCH (23:46)
[2022-08-01] MEDS: ALBUTEROL HFA INHALER INHALATION SCH ×4 (04:25→20:42)
[2022-08-01] MEDS: INSULIN ASPART (NovoLOG) 100 UNIT/ML VIAL SQ SCH ×4 (07:57→20:53)
[2022-08-01 08:04] LABS: African American GFR (CKD) 65 (>60 ml/min/1.73 sqM); Anion Gap 7 mmol/L; Blood Urea Nitrogen 15 mg/dL (7-17); Calcium 7.4 mg/dL (8.4-10.2); Carbon Dioxide 26 mmol/L (22-30); Chloride 108 mmol/L (98-107); Glucose 92 mg/dL (74-99); Non-African American GFR(CKD) 57 (>60 ml/min/1.73 sqM); Potassium 3.5 mmol/L (3.5-5.1); Sodium 141 mmol/L (137-145)
[2022-08-01] MEDS: METOPROLOL TARTRATE 50 MG TAB PO SCH ×3 (08:52→21:09)
[2022-08-01] MEDS: PSYLLIUM HUSK 100% 6 GM PACKET PO SCH (08:52)
[2022-08-01] MEDS: LEVOTHYROXINE 100 MCG TAB PO SCH (08:52)
[2022-08-01] MEDS: FAMOTIDINE 20 MG TAB PO SCH (08:52)
[2022-08-01] MEDS: APIXABAN 5 MG TAB PO SCH (08:52)
[2022-08-01] MEDS: OXYBUTYNIN 10 MG TAB.ER.24 PO SCH (08:53)
[2022-08-01] MEDS: ESCITALOPRAM 10 MG TAB PO SCH (08:53)
[2022-08-01] MEDS: DIGOXIN 125 MCG TAB PO SCH (08:53)
[2022-08-01] MEDS ORDERED: NON FORMULARY DRUG (Omeprazole [Omeprazole] 20 MG Capsule.Dr) PO SCH (09:00)
[2022-08-01] MEDS: CEFTOLOZANE/TAZOBACTAM 1.5 GM in SODIUM CHLORIDE 0.9% 100 ML IV SCH ×2 (09:02→16:31)
[2022-08-01] MEDS: PANTOPRAZOLE 40 MG/10 ML VIAL IV SCH (09:26)
[2022-08-01 10:29] LABS: Basophils # (A) 0.02 X 10*3/uL (0.00-0.10); Basophils % (A) 0.3 %; Eosinophils # (A) 0.12 X 10*3/uL (0.04-0.35); Eosinophils % (A) 1.7 %; HCT 25.5 % (37.2-46.3); HGB 7.1 g/dL (12.0-15.0); Immature Grans, Automated 0.3 %; Lymphocytes # (A) 0.33 X 10*3/uL (0.90-5.00); Lymphocytes % (A) 4.6 %; MCH 27.3 pg (27.0-32.0); MCHC 27.8 g/dL (32.0-37.0); MCV 98.1 fL (80.0-97.0); Mean Platelet Volume 9.5 fL (9.5-12.2); Monocytes # (A) 0.46 X 10*3/uL (0.20-1.00); Monocytes % (A) 6.4 %; NRBC Per 100 WBC 0 /100 WBCS (0.0-0.0); Neutrophils # (A) 6.23 X 10*3/uL (1.80-7.70); Neutrophils % (A) 86.7 %; Platelet Count 337 X 10*3/uL (140-440); RDW 19.3 % (11.5-14.5); WBC 7.18 X 10*3/uL (4.50-10.00)
[2022-08-01] MEDS: VANCOMYCIN 1,750 MG in SODIUM CHLORIDE 0.9% 500 ML 500 ML IVPB SCH (11:34)
[2022-08-01 12:15] LABS: Glucose,Whole Blood 82 mg/dL (70-110)
[2022-08-01 14:23] VITALS: BMI 55.5
--- NOTE | 2022-08-01 14:24 | P.PN ---
Subjective Progress Note Date: 08/01/22 62-year-old the female came in with the pain and swelling in the right inguinal area with fall swelling discharge patient is already on ceftreoloneand tazobatum, patient is also found to have COVID-19 patient also found to have COVID-19 patient the will be evaluated by infectious disease wound cultures were obtained. 08/01/2022 Patient is seen and evaluated in follow-up this morning with infectious disease following. Patient is maintained on IV antibiotics in the form of ceftolozane/ tazobactam and vancomycin. Infectious diseases consulted general surgery recommending debridement of the chronic abdominal wounds that appear infective with purulent drainage noted. Blood cultures remain negative and urine culture showing Jacki. Patient also incidentally found to have Covid currently main tained on 2 L via nasal cannula with 97-100% oxygen saturations. Patient denies shortness of breath. Patient continues with some intermittent confusion and is on a number of high-dose narcotics recommend holding for now and will discontinue fentanyl patch and monitor for improvement in mentation. Patient continues with poor oral intake and needs encouragement. Patient mostly fatigued and sleeping throughout the day per nursing staff. Patient is currently a resident at [facility] and will be returning there on discharge. Patient is afebrile and the white count is WBC is 7.18 and hemoglobin is 7.1 with no active bleeding noted. Potassium was replaced and repeat today is 3.5. Creatinine is 1.05. Blood sugars on the lower side and recommend continue monitoring Accu-Cheks before meals and at bedtime and will use sliding scale as needed. REVIEW OF SYSTEMS: Unable to obtain as patient is lethargic today PHYSICAL EXAMINATION: GENERAL: The patient is alert and oriented x1-2, lethargic. Well developed, well nourished. Morbidly obese HEENT: Pupils are round and equally reacting to light. EOMI. No scleral icterus. No conjunctival pallor. Normocephalic, atraumatic. No pharyngeal erythema. No thyromegaly. CARDIOVASCULAR: S1 and S2 muffled PULMONARY: Diminished breath sounds bilaterally with no wheezing or rhonchi noted. ABDOMEN: Soft, obese nontender, nondistended, normoactive bowel sounds. No palpable organomegaly. MUSCULOSKELETAL: No joint swelling or deformity. EXTREMITIES: No cyanosis, clubbing, or pedal edema. NEUROLOGICAL: Gross neurological examination did not reveal any focal deficits. Diffusely weak SKIN: Abscess in the right inguinal area and there is significant abdominal swelling redness Assessment: -Right inguinal abscess abdominal wall cellulitis, patient is presently on IV tazobactam and vancomycin infectious disease following -Persistent atrial fibrillation heart rate is well controlled at this time patient will be resumed on eliquis and digoxin -Incidental finding of COVID-19 patient is on oxygen but patient chronically wears oxygen at home patient doesn't have any acute hypoxic respiratory failure -Cerebral vascular accident with the stroke the posterior aspect of the left frontal lobe and coronary data -Type 2 diabetes mellitus -Morbid obesity -Gastroesophageal reflux disease -Essential hypertension -Urinary stress incontinence -Hypothyroidism -DVT prophylaxis: On eliquis which will be held for potential surgical in tervention of the abdominal wall abscess Plan: Recommend continue on antibiotics and ID following. Surgical services were consulted for possible debridement and deep tissue cultures of this abdominal wall abscess Patient is receiving multiple narcotics and will hold as patient is lethargic and per nursing staff more confused today Recommend holding anticoagulant in the event of surgical debridement Continue monitoring Accu-Cheks before meals and at bedtime and continue with current regimen for now. Await surgical evaluation Recommend repeat labs in the a.m. Case management following his patient will be returning to [facility] where she resides once discharged The impression and plan of care has been dictated by Lily Ramos, Nurse Practitioner as directed. Dr. James MD I have performed a history and examination and MDM of this patient, discussed the same with the dictator, and agree with the dictator's assessment and plan as written ,documented as a scribe. Based on total visit time, I have performed more than 50% of the visit. Objective - Vital Signs Vital signs: Vital Signs Temp 97.8 F 08/01/22 02:00 Pulse 83 08/01/22 02:00 Resp 18 08/01/22 02:00 BP 133/82 08/01/22 02:00 Pulse Ox 100 08/01/22 08:28 FiO2 Intake & Output 07/31/22 08/01/22 08/01/22 18:59 06:59 18:59 Output Total 200 650 Balance -200 -650 Output: Urine 200 650 Uretheral ([place]) 200 Other: Voiding Method Indwelling Catheter Indwelling Catheter - Labs CBC & Chem 7: 08/01/22 06:46 08/01/22 06:46 Labs: Abnormal Lab Results - Last 24 Hours (Table) 07/31/22 07/31/22 08/01/22 Range/Units 17:11 22:04 06:46 Potassium 3.3 L (3.5-5.1) mmol/L Chloride 108 H (98-107) mmol/L Creatinine 1.05 H (0.52-1.04) mg/dL POC Glucose (mg/dL) 119 H (70-110) mg/dL Calcium 7.4 L (8.4-10.2) mg/dL Microbiology - Last 24 Hours (Table) 07/30/22 18:26 Urine Culture - Final Urine,Voided Jacki albicans 07/30/22 16:12 Blood Culture - Preliminary Blood No Growth after 24 hours 07/30/22 15:57 Blood Culture - Preliminary Blood No Growth after 24 hours
--- NOTE | 2022-08-01 15:11 | P.GSCN ---
History of Present Illness Consult date: 08/01/22 History of present illness: CHIEF COMPLAINT: Increased drainage from wound on pannus and groin HISTORY OF PRESENT ILLNESS: This is a 62-year-old female with a past medical history significant for uterine cancer status post chemo and radiation treatment. 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 Patient has required debridement of the right groin wound and left pannus wound on 06/29/2022 and on 05/31/2022 she had debridement of the right groin wound. Patient has had recurrent infections in these areas. His she's been on IV antibiotics also followed by wound care service and infectious disease. Patient currently at a custodial and was brought back in to the hospital due to increased drainage with a foul odor as well as pain. She had a computed tomography scan of abdomen and pelvis that showed no evidence for acute intra-abdominal process. Patient seen by infectious disease. She's currently on IV antibiotics. There is necrotic tissue noted on the picture of the pannus. Surgical service has been consulted for debridement of the area. Patient is on Eliquis for history of A. fib. PAST MEDICAL HISTORY: See list. PAST SURGICAL HISTORY: See list. MEDICATIONS: See list. ALLERGIES: See list. SOCIAL HISTORY: No illicit drug use. REVIEW OF SYSTEMS: CONSTITUTIONAL: Denies fever or chills. HEENT: Denies blurred vision, vision changes, or eye pain. Denies hemoptysis ENDOCRINE: Denies heat or cold intolerance. CARDIOVASCULAR: Denies chest pain or pressure. RESPIRATORY: No shortness of breath. GASTROINTESTINAL: Denies abdominal pain. Denies nausea or vomiting. NEURO: Denies history of seizures. PSYCH: No depression or suicidal ideation HEMATOLOGIC: Denies bleeding disorders. LYMPHATIC: The patient denies any lumps and bumps around the neck. GENITOURINARY: Denies any blood in urine or increased urinary frequency. MUSCULOSKELETAL: Denies myalgias. Denies joint swelling. Denies decreased range of motion beyond patients baseline. SKIN: Denies pruitis. Denies rash. PHYSICAL EXAM: VITAL SIGNS: Reviewed GENERAL: Well-developed in no acute distress. HEENT: No sclera icterus. Extraocular movements grossly intact. Moist buccal mucosa. Head is atraumatic, normocephalic. Hears conversational speech. No nasal drainage. NECK: Supple without lymphadenopathy. CHEST: Non-labored respirations and equal bilateral excursions. CARDIOVASCULAR: Palpable 2+ radial pulses. ABDOMEN: Soft. Obese. Nondistended. Large pannus with necrotic tissue noted under the pannus. Right groin area showing healthy tissue. MUSCULOSKELETAL: No clubbing or cyanosis. NEUROLOGIC: No focal or lateralizing signs. Cranial nerves II through XII grossly intact. PSYCH: Appropriate affect. Alert and oriented to person, place and time. SKIN: Well perfused. Good skin turgor. LABORATORY DATA: WBC is 7.18 hemoglobin 7.1 platelets 337 Sodium 141 potassium is 3.5 creatinine 1.05 HgbA1c 5.8 Lactic acid 0.9 Albumin 2.0 Covid 19 detected IMAGING: Computed tomography scan abdomen and pelvis no evidence for acute intra- abdominal process. No significant change from 07/13/2022. Large stool burden throughout the colon. Distended gallbladder. Trace left pleural effusion. Cardiomegaly. Moderate to severe degeneration changes of the spine. ASSESSMENT: 1. Bilateral groin wound and necrotic tissue of the pannus 2. Prior history of debridements of the groin and pannus 3. 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 Morbid obesity 5. Diabetes mellitus 6. Atrial fibrillation PLAN: -Patient scheduled for excisional debridement of pannus and bilateral groin on 08/03/[address] Nolasco -Eliquis has been discontinued. Anticoagulation needs to be held at least 48 hours prior to surgery -Continue antibiotics per infectious disease -Continue local wound care Thank you for this consultation Physician Technology Architect note has been reviewed by physician. Signing provider agrees with the documented findings, assessment, and plan of care. Please see additional documentation below REASON FOR CONSULTATION: Radiation necrosis pannus and groin HISTORY OF PRESENT ILLNESS: The patient is a 62 year old female prior debridement of large right groin and lower pannus one month ago. 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 She has multiple recurrent hospitalizations due to her complex abdominal. She had t rials of wound VAC which patient reports was uncomfortable and discontinued. She has been on wet-to-dry dressings. Chronic wound care clinic has been consulted and seen her in the past. Patient had gone to custodial one to 2 weeks ago and now returns with recurrent moderate drainage of her wounds. She has been seen by infectious disease. She has multiple drug-resistant organisms along her wounds and on multiple antibiotics. General surgery is consulted for additional debridement. Additionally, patient diagnosed with Covid with respiratory symptoms. PAST MEDICAL HISTORY: See list and reviewed PAST SURGICAL HISTORY: See list and reviewed MEDICATIONS: See list and reviewed ALLERGIES: See list and reviewed SOCIAL HISTORY: See list and reviewed FAMILY HISTORY: See list and reviewed REVIEW OF ORGAN SYSTEMS: CONSTITUTIONAL: No fevers or chills. No recent weight loss. Has morbid obesity, BMI 48.9 EYES: Denies any trouble with vision. Wears glasses. HEENT: No difficulties with hearing. No nosebleeds. No difficulty swallowing. RESPIRATORY: Denies pneumonia. Denies any troubles with breathing or dyspnea on exertion. CARDIOVASCULAR: Has hypertensive heart disease. Has hyperlipidemia. Prior cardiac ablation. History of atrial fibrillation. GASTROINTESTINAL: Denies fatty food intolerance. Denies change in bowel habits and gas bloat. Has gastroesophageal reflux disease. Has post-op nausea and vomiting. GENITOURINARY: Denies any blood in urine. Has increased urinary frequency. Recent uterine ovarian cancer diagnosis. NEUROLOGICAL: Denies any numbness or tingling along the distal extremities. No seizure disorders or headaches. Has recent stroke 1 month ago. MUSCULOSKELETAL: Has back pain, stiffness or joint arthritis. 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 PSYCHIATRIC: Has depression. No suicidal thoughts. ENDOCRINE: Has hypothyroidism. Has diabetes type II, insulin dependent. HEME/LYMPHATIC: Denies any lumps and bumps around the neck. No recent deep venous thrombosis. On anticoagulant. ALLERGY/IMMUNOLOGY: No immunoglobulin therapy. No immune deficiencies. Recent radiation. BREAST: Denies current breast lumps, pain or nipple discharge. PHYSICAL EXAM: VITALS: Reviewed CONSTITUTIONAL: Well developed and in no acute distress. EYES: Conjuctivae without sclera icterus. Extraocular movements grossly intact. HEAD, EARS, NOSE, THROAT: Moist buccal mucosa. Head is atraumatic, normocephalic. Hears conversational speech. No nasal drainage. NECK: Supple. No JV distention. No thyroidomegaly. RESPIRATORY: Non-labored respirations and equal bilateral excursions. No gross wheezes. CARDIOVASCULAR: Palpable 2+ radial pulses. ABDOMEN: Moderate-sized pannus with epidermal lysis and asked her of the inferio r portion of the pannus. Right groin bed granulating. LYMPH: No neck lymphadenopathy. MUSCULOSKELETAL: No clubbing cyanosis. SKIN: Warm and well perfused with good skin turgor. Large right groin wound to suprapubic including inferior pannus wound dressings intact. NEUROLOGIC: Cranial nerves II through XII grossly intact. No focal or lateralizing signs. PSYCH: Sad affect. Alert and oriented to person, place and time. Displays appropriate insight. CLINCAL LABS: Reviewed. WBC 8.4 on admission. Chronic anemia, hemoglobin 7.9. Covid positive. Creatinine 1.04. IMAGING: Independently reviewed. CT of the abdomen and pelvis reviewed with gallbladder distention. No intra-abdominal abscess identified. Due to patient's large body habitus, subcutaneous tissue of pannus and groin not well visualized. No subcutaneous gas identified. This is my independent interpretation. REPORT: CT of the abdomen and pelvis report demonstrates large stool burden. No evidence of acute intra-abdominal process. Descending gallbladder. Cardiomegaly. EKG: Nature fibrillation. ASSESSMENT: 1. Groin complex wound due to radionecrosis 2. 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 Morbid obesity due to excess calories, BMI 51.6 4. Uterine cancer status post chemoradiation with radionecrosis 5. Diabetes type 2, insulin-dependent 6. Chronic history atrial fibrillation 7. Chronic anticoagulation 8. Yvbrr-qctw-dtqsoozkj organisms of wound 9. Covid pneumonia PLAN: 1. At this time, patient is on anticoagulation. Hold anticoagulation 2 days prior to debridement. 2. Alternatives to wet-to-dry dressing including wound care per infectious disease 3. Recommend improved nutrition with Renny increase protein intake. 4. Care plan reviewed with patient and agreeable with care. Past Medical History Past Medical History: Atrial Fibrillation, Cancer, Diabetes Mellitus, GERD/Reflux, Hypertension, Thyroid Disorder Additional Past Medical History / Comment(s): Pt states she has had intermittent vaginal bleeding over past one year, NIDDM type II, UTIs, hypothyroid, chronic low back pain, occasional bilateral leg pain at night. Ovarian cancer with chemo and radiation. History of Any Multi-Drug Resistant Organisms: ESBL Year Discovered:: 06/27/22 ESBL MDRO Source:: Blood Past Surgical History: Heart Catheterization, Tonsillectomy, Uterine Ablation Additional Past Surgical History / Comment(s): Nasal fracture with surgery, wisdom teeth extractions. Past Anesthesia/Blood Transfusion Reactions: Postoperative Nausea & Vomiting (PONV) Additional Past Anesthesia/Blood Transfusion Reaction / Comm: Pt received blood this hospitalization without reaction. Past Psychological History: Depression Smoking Status: Former smoker Past Alcohol Use History: None Reported Past Drug Use History: None Reported - Past Family History Father Family Medical History: Cancer Additional Family Medical History / Comment(s): Father of lung cancer. He was a smoker. Mother Family Medical History: Vascular Disorder Additional Family Medical History / Comment(s): Mother of a cerebral aneurysm at the age of 58 yrs. Medications and Allergies Home Medications Medication Instructions Recorded Confirmed Type Levothyroxine Sodium 200 mcg PO DAILY@0800 10/10/21 07/30/22 History Nitroglycerin Sl Tabs [Nitrostat] 0.4 mg SL Q5M PRN 10/10/21 07/30/22 History Oxybutynin ER [Ditropan Xl] 10 mg PO DAILY@0800 05/18/22 07/30/22 History Acetaminophen Tab [Tylenol] 650 mg PO Q4H PRN 06/22/22 07/30/22 History Apixaban [Eliquis] 5 mg PO BID@0800,1600 06/22/22 07/30/22 History Atorvastatin [Lipitor] 40 mg PO HS@199906/22/22 07/30/22 History Insulin Lispro [humaLOG Kwikpen] See Protocol SQ ACHS 06/22/22 07/30/22 History Pro Stat 30 ml PO TID 06/22/22 07/30/22 History Famotidine [Pepcid] 20 mg PO DAILY tab 07/05/22 07/30/22 Rx Ammonium Lactate Lotion 1 applic TOPICAL DAILY@0807/13/22 07/30/22 History [Lac-Hydrin 12% Lotion] Multivitamins, Thera [Multivitamin 1 tab PO DAILY@0800 07/13/22 07/30/22 History (formulary)] fentaNYL 50MCG/HR PATCH [Duragesic 50 mcg TRANSDERM Q72H #1 patch 07/18/22 07/30/22 Rx 50MCG/HR] Digoxin [Lanoxin] 125 mcg PO DAILY tab 07/20/22 07/30/22 Rx Metoprolol Tartrate [Lopressor] 50 mg PO TID tab 07/20/22 07/30/22 Rx Ceftolozane/Tazobactam [Zerbaxa 1.5 gm IVPB TID 07/30/22 07/30/22 History 1.5 Gram Vial] Chlorhexidine Gluconate [Hibiclens] 1 applic TOPICAL HS 07/30/22 07/30/22 History Escitalopram [Lexapro] 10 mg PO DAILY 07/30/22 07/30/22 History Ferrous Sulfate [Feosol] 325 mg PO DAILY 07/30/22 07/30/22 History HYDROcodone/APAP 10-325MG [[place] 1 tab PO Q4HR PRN 07/30/22 07/30/22 History 10-325] Ipratropium-Albuterol Nebulize 3 ml INHALATION RT-Q6H 07/30/22 07/30/22 History [Duoneb 0.5 mg-3 mg/3 ml Soln] Metamucil Packet 28% Psyllium 1 packet PO DAILY 07/30/22 07/30/22 History Omeprazole 20 mg PO DAILY 07/30/22 07/30/22 History Vancomycin/Water For Inj (Peg) 750 mg IV BID 07/30/22 07/30/22 History [Vancomycin 750 mg/150 ml Bag] guaiFENesin [Diabetic Tussin Ex] 200 mg PO Q4H PRN 07/30/22 07/30/22 History guaiFENesin [guaiFENesin ER] 600 mg PO Q12H PRN 07/30/22 07/30/22 History Allergies Allergy/AdvReac Type Severity Reaction Status Date / Time No Known Allergies Allergy Verified 07/30/22 22:14 Surgical - Exam Vital Signs Temp Pulse Resp BP Pulse Ox 98.7 F 89 18 155/71 96 07/30/22 15:04 07/30/22 15:04 07/30/22 15:04 07/30/22 15:04 07/30/22 15:04 Results - Labs 08/01/22 06:46 08/01/22 06:46 Abnormal Lab Results - Last 24 Hours (Table) 07/31/22 07/31/22 08/01/22 Range/Units 17:11 22:04 06:46 RBC (4.10-5.20) X 10*6/uL Hgb (12.0-15.0) g/dL Hct (37.2-46.3) % MCV (80.0-97.0) fL MCHC (32.0-37.0) g/dL RDW (11.5-14.5) % Lymphocytes # (0.90-5.00) X 10*3/uL Potassium 3.3 L (3.5-5.1) mmol/L Chloride 108 H (98-107) mmol/L Creatinine 1.05 H (0.52-1.04) mg/dL POC Glucose (mg/dL) 119 H (70-110) mg/dL Calcium 7.4 L (8.4-10.2) mg/dL 08/01/22 Range/Units 06:46 RBC 2.60 L (4.10-5.20) X 10*6/uL Hgb 7.1 L (12.0-15.0) g/dL Hct 25.5 L (37.2-46.3) % MCV 98.1 H (80.0-97.0) fL MCHC 27.8 L (32.0-37.0) g/dL RDW 19.3 H (11.5-14.5) % Lymphocytes # 0.33 L (0.90-5.00) X 10*3/uL Potassium (3.5-5.1) mmol/L Chloride (98-107) mmol/L Creatinine (0.52-1.04) mg/dL POC Glucose (mg/dL) (70-110) mg/dL Calcium (8.4-10.2) mg/dL Microbiology - Last 24 Hours (Table) 07/30/22 18:26 Urine Culture - Final Urine,Voided Jacki albicans 07/30/22 16:12 Blood Culture - Preliminary Blood No Growth after 24 hours 07/30/22 15:57 Blood Culture - Preliminary Blood No Growth after 24 hours Diabetes panel 07/31/22 08/01/22 Range/Units 17:11 06:46 Sodium 141 (137-145) mmol/L Potassium 3.3 L 3.5 (3.5-5.1) mmol/L Chloride 108 H (98-107) mmol/L Carbon Dioxide 26 (22-30) mmol/L BUN 15 (7-17) mg/dL Creatinine 1.05 H (0.52-1.04) mg/dL Glucose 92 (74-99) mg/dL Calcium 7.4 L (8.4-10.2) mg/dL Calcium panel 08/01/22 Range/Units 06:46 Calcium 7.4 L (8.4-10.2) mg/dL Pituitary panel 07/31/22 08/01/22 Range/Units 17:11 06:46 Sodium 141 (137-145) mmol/L Potassium 3.3 L 3.5 (3.5-5.1) mmol/L Chloride 108 H (98-107) mmol/L Carbon Dioxide 26 (22-30) mmol/L BUN 15 (7-17) mg/dL Creatinine 1.05 H (0.52-1.04) mg/dL Glucose 92 (74-99) mg/dL Calcium 7.4 L (8.4-10.2) mg/dL Adrenal panel 07/31/22 08/01/22 Range/Units 17:11 06:46 Sodium 141 (137-145) mmol/L Potassium 3.3 L 3.5 (3.5-5.1) mmol/L Chloride 108 H (98-107) mmol/L Carbon Dioxide 26 (22-30) mmol/L BUN 15 (7-17) mg/dL Creatinine 1.05 H (0.52-1.04) mg/dL Glucose 92 (74-99) mg/dL Calcium 7.4 L (8.4-10.2) mg/dL
--- NOTE | 2022-08-01 16:01 | P.PN ---
Subjective Progress Note Date: 08/01/22 Principal diagnosis: Abdominal wound infection and COVID Patient is a 62-year-old female with a past medical history significant for cervical cancer in this patient who is status post chemoradiation, with significant radiation necrosis to the lower abdominal area and did have extensive wound after debridement with recent culture positive for multidrug-resistant Pseudomonas aeruginosa and Klebsiella ESBL for the patient was on Zerbaxa now presenting back to the hospital with worsening drainage from the wound and the patient also noticed to have a positive COVID test. On today's evaluation have that is 08/01/2022, the patient denies having any fever or any chills, patient is currently breathing comfortably on 2 L nasal cannula patient denies having any chest pain or worsening cough still lower abdominal discomfort denies any diarrhea Objective - Vital Signs Vital signs: Vital Signs Temp 97.8 F 08/01/22 12:00 Pulse 73 08/01/22 12:00 Resp 16 08/01/22 12:00 BP 134/85 08/01/22 12:00 Pulse Ox 97 08/01/22 12:00 FiO2 Intake & Output 07/31/22 08/01/22 08/01/22 18:59 06:59 18:59 Output Total 200 650 Balance -200 -650 Output: Urine 200 650 Uretheral ([place]) 200 Other: Voiding Method Indwelling Catheter Indwelling Catheter - Exam GENERAL DESCRIPTION: Middle-aged female lying in bed, no distress. No tachypnea or accessory muscle of respiration use. LUNGS: Unlabored breathing. Coarse breath sounds bilaterally HEART: S1, S2, regular rate and rhythm. No loud murmur ABDOMEN: Soft lower abdominal wound is currently packed no significant redness EXTREMITIES: No edema of feet. - Labs CBC & Chem 7: 08/01/22 06:46 08/01/22 06:46 Labs: Abnormal Lab Results - Last 24 Hours (Table) 07/31/22 07/31/22 08/01/22 Range/Units 17:11 22:04 06:46 RBC (4.10-5.20) X 10*6/uL Hgb (12.0-15.0) g/dL Hct (37.2-46.3) % MCV (80.0-97.0) fL MCHC (32.0-37.0) g/dL RDW (11.5-14.5) % Lymphocytes # (0.90-5.00) X 10*3/uL Potassium 3.3 L (3.5-5.1) mmol/L Chloride 108 H (98-107) mmol/L Creatinine 1.05 H (0.52-1.04) mg/dL POC Glucose (mg/dL) 119 H (70-110) mg/dL Calcium 7.4 L (8.4-10.2) mg/dL 08/01/22 Range/Units 06:46 RBC 2.60 L (4.10-5.20) X 10*6/uL Hgb 7.1 L (12.0-15.0) g/dL Hct 25.5 L (37.2-46.3) % MCV 98.1 H (80.0-97.0) fL MCHC 27.8 L (32.0-37.0) g/dL RDW 19.3 H (11.5-14.5) % Lymphocytes # 0.33 L (0.90-5.00) X 10*3/uL Potassium (3.5-5.1) mmol/L Chloride (98-107) mmol/L Creatinine (0.52-1.04) mg/dL POC Glucose (mg/dL) (70-110) mg/dL Calcium (8.4-10.2) mg/dL Microbiology - Last 24 Hours (Table) 07/30/22 18:26 Urine Culture - Final Urine,Voided Jacki albicans 07/30/22 16:12 Blood Culture - Preliminary Blood No Growth after 24 hours 07/30/22 15:57 Blood Culture - Preliminary Blood No Growth after 24 hours Assessment and Plan (1) Abdominal wall cellulitis Current Visit: Yes Status: Acute Code(s): L03.311 - CELLULITIS OF ABDOMINAL WALL SNOMED Code(s): 66330371 (2) COVID Current Visit: Yes Status: Acute Code(s): U07.1 - COVID-19 SNOMED Code(s): 494717135 Plan: 1patient with a chronic nonhealing wound to bilateral groin area in this patient with a 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 she did have extensive debridement of the wound on last admission one of the cultures are positive for ESBL Klebsiella last urine culture positive for ESBL Klebsiella CRE Pseudomonas and did have a staph epi infection of the midline which was discontinued now presenting with the worsening wound and drainage CT abdominal pelvis did not show any evidence of abscess 2-patient did have a positive COVID test with mild respiratory symptoms, We will add dexamethasone zinc and ascorbic acid anticoagulation has been put on hold for anticipated surgery 3-Pt to continue vancomycin and Zerbaxa 4- surgical debridement and deep culture Scheduled for 08/03/2022 Time with Patient: Less than 30
[2022-08-01] MEDS: DEXAMETHASONE SOD PHOSPHATE 10 MG/ML 1 ML VIAL IV SCH (16:50)
[2022-08-01] MEDS: ZINC SULFATE 220 MG CAP PO SCH (16:50)
[2022-08-01 16:55] LABS: Glucose,Whole Blood 84 mg/dL (70-110)
[2022-08-01 20:09] LABS: Glucose,Whole Blood 110 mg/dL (70-110)
[2022-08-01] MEDS: ATORVASTATIN 40 MG TAB PO SCH (21:09)
[2022-08-02] MEDS: ALBUTEROL HFA INHALER INHALATION SCH ×4 (01:43→21:07)
[2022-08-02] MEDS: CEFTOLOZANE/TAZOBACTAM 1.5 GM in SODIUM CHLORIDE 0.9% 100 ML IV SCH ×3 (01:46→17:45)
[2022-08-02] MEDS: VANCOMYCIN 1,750 MG in SODIUM CHLORIDE 0.9% 500 ML 500 ML IVPB SCH ×2 (01:46→17:54)
[2022-08-02] MEDS: OXYBUTYNIN 10 MG TAB.ER.24 PO SCH (06:52)
[2022-08-02] MEDS: ESCITALOPRAM 10 MG TAB PO SCH (06:52)
[2022-08-02] MEDS: DIGOXIN 125 MCG TAB PO SCH (06:52)
[2022-08-02] MEDS: ZINC SULFATE 220 MG CAP PO SCH (06:53)
[2022-08-02] MEDS: METOPROLOL TARTRATE 50 MG TAB PO SCH ×3 (06:53→22:25)
[2022-08-02] MEDS: PSYLLIUM HUSK 100% 6 GM PACKET PO SCH (06:53)
[2022-08-02] MEDS: ASCORBIC ACID 500 MG TAB PO SCH (06:53)
[2022-08-02] MEDS: FAMOTIDINE 20 MG TAB PO SCH (06:53)
[2022-08-02] MEDS: LEVOTHYROXINE 100 MCG TAB PO SCH (06:53)
[2022-08-02] MEDS: INSULIN ASPART (NovoLOG) 100 UNIT/ML VIAL SQ SCH ×4 (07:40→22:24)
[2022-08-02 07:41] LABS: Glucose,Whole Blood 122 mg/dL (70-110)
[2022-08-02 08:01] LABS: ALT 26 U/L (4-34); AST 67 U/L (14-36); African American GFR (CKD) 66 (>60 ml/min/1.73 sqM); Albumin 1.7 g/dL (3.5-5.0); Albumin/Globulin Ratio 0.7; Alkaline Phosphatase 101 U/L (38-126); Anion Gap 8 mmol/L; Blood Urea Nitrogen 14 mg/dL (7-17); Calcium 7.2 mg/dL (8.4-10.2); Carbon Dioxide 24 mmol/L (22-30); Chloride 110 mmol/L (98-107); Globulin 2.4 g/dL; Glucose 105 mg/dL (74-99); Non-African American GFR(CKD) 58 (>60 ml/min/1.73 sqM); Potassium 3.8 mmol/L (3.5-5.1); Sodium 142 mmol/L (137-145); Total Bilirubin 0.3 mg/dL (0.2-1.3); Total Protein 4.1 g/dL (6.3-8.2)
[2022-08-02] MEDS: PANTOPRAZOLE 40 MG/10 ML VIAL IV SCH (09:07)
[2022-08-02] MEDS: DEXAMETHASONE SOD PHOSPHATE 10 MG/ML 1 ML VIAL IV SCH (09:08)
[2022-08-02 09:32] LABS: C Reactive Protein 18.1 mg/dL (<1.0)
[2022-08-02 11:28] LABS: Basophils # (A) 0 X 10*3/uL (0.00-0.10); Basophils % (A) 0 %; Eosinophils # (A) 0 X 10*3/uL (0.04-0.35); Eosinophils % (A) 0 %; Immature Grans, Automated 0.8 %; Lymphocytes # (A) 0.21 X 10*3/uL (0.90-5.00); Lymphocytes % (A) 3.4 %; Monocytes # (A) 0.37 X 10*3/uL (0.20-1.00); Monocytes % (A) 5.9 %; NRBC Per 100 WBC 0 /100 WBCS (0.0-0.0); Neutrophils # (A) 5.62 X 10*3/uL (1.80-7.70); Neutrophils % (A) 89.9 %
[2022-08-02 11:29] LABS: HCT 24.4 % (37.2-46.3); HGB 6.9 g/dL (12.0-15.0); MCH 27.5 pg (27.0-32.0); MCHC 28.3 g/dL (32.0-37.0); MCV 97.2 fL (80.0-97.0); Mean Platelet Volume 9.4 fL (9.5-12.2); Platelet Count 362 X 10*3/uL (140-440); RBC 2.51 X 10*6/uL (4.10-5.20); RDW 19.1 % (11.5-14.5); WBC 6.25 X 10*3/uL (4.50-10.00)
[2022-08-02 12:08] LABS: Glucose,Whole Blood 103 mg/dL (70-110)
--- NOTE | 2022-08-02 13:59 | P.PN ---
Subjective Progress Note Date: 08/02/22 CHIEF COMPLAINT: Groin wound HISTORY OF PRESENT ILLNESS: Patient lying in bed. Her pain is controlled. Denies any nausea or vomiting. Afebrile. She is requiring 2 L of oxygen. WBC is 6.25 Hgb 6.9 platelets 362 sodium 142 potassium 3.8 creatinine 1.04 albumin 1.7 PHYSICAL EXAM: VITAL SIGNS: Reviewed GENERAL: Well-developed in no acute distress. HEENT: No sclera icterus. Extraocular movements grossly intact. Moist buccal mucosa. Head is atraumatic, normocephalic. Hears conversational speech. No nasal drainage. NECK: Supple without lymphadenopathy. CHEST: Non-labored respirations and equal bilateral excursions. CARDIOVASCULAR: Palpable 2+ radial pulses. ABDOMEN: Soft. Obese. Nondistended. Right groin wound that extends into the pannus with necrotic tissue MUSCULOSKELETAL: No clubbing or cyanosis. NEUROLOGIC: No focal or lateralizing signs. Cranial nerves II through XII tricia ssly intact. PSYCH: Appropriate affect. Alert and oriented to person, place and time. SKIN: Well perfused. Good skin turgor. ASSESSMENT: 1. Groin complex wound due to radionecrosis 2. 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 Morbid obesity due to excess calories, BMI 51.6 4. Uterine cancer status post chemoradiation with radionecrosis 5. Diabetes type 2, insulin-dependent 6. Chronic history atrial fibrillation 7. Chronic anticoagulation 8. Dpbkj-wsns-mfiacqjqu organisms of wound 9. Covid pneumonia 10. Anemia PLAN: -Patient is scheduled for excisional debridement of pannus and bilateral groin tomorrow, 08/03/[address] Nolasco -Medicine service has ordered 1 unit of blood for hemoglobin of 6.9 -Nothing by mouth after midnight -Continue antibiotics per infectious disease -Continue supportive care -Continue to hold Karon Physician Hot Dimpling Machine Operator note has been reviewed by physician. Signing provider agrees with the documented findings, assessment, and plan of care. CHIEF COMPLAINT: Complex abdominal wound HISTORY OF PRESENT ILLNESS: The patient is a 62-year-old female with history of radionecrosis of the pannus and pelvis. No fevers or chills. Patient's hemoglo bin less than 7.0 and she is scheduled for blood transfusion. Blood thinners on hold. Patient is Covid positive and in isolation. ROS: No reports of nausea and vomiting. No fevers or chills. No new chest pain. PHYSICAL EXAM: VITAL SIGNS: Reviewed CONSTITUTIONAL: Well developed and in no acute distress. EYES: Conjuctivae without sclera icterus. Extraocular movements grossly intact. HEAD, EARS, NOSE, THROAT: Moist buccal mucosa. Head is atraumatic, normocephalic. Hears conversational speech. No nasal drainage. RESPIRATORY: Non-labored respirations and equal bilateral excursions. CARDIOVASCULAR: Palpable 2+ radial pulses. ABDOMEN: Dressing intact. Pictures reviewed demonstrated moderate necrosis dark eschar of the pannus and left pelvis. Clean basis along the right groin. MUSCULOSKELETAL: No gross deformity of the lower extremities noted. No clubbing. No cyanosis. SKIN: Good skin turgor. Well perfused. NEUROLOGIC: Cranial nerves II through XII grossly intact. No focal or lateralizing signs. PSYCH: Flat affect. Alert and oriented to person, place and time. CLINICAL LABS: Reviewed. Hemoglobin 6.9. Albumin 1.6. ASSESSMENT: 1. Complex abdominal groin wound PLAN: 1. Recommend dietary consultation to severe protein malnutrition 2. High-protein diet ordered with Renny 3. Hold anticoagulation for debridement 4. Continue antibiotics Objective - Vital Signs Vital signs: Vital Signs Temp 97.9 F 08/02/22 10:00 Pulse 80 08/02/22 10:00 Resp 18 08/02/22 10:00 BP 144/78 08/02/22 10:00 Pulse Ox 99 08/02/22 10:00 FiO2 Intake & Output 08/01/22 08/02/22 08/02/22 18:59 06:59 18:59 Output Total 400 300 Balance -400 -300 Weight 165.561 kg Output: Urine 400 300 Other: Voiding Method Indwelling Catheter Indwelling Catheter Indwelling Catheter - Labs CBC & Chem 7: 08/02/22 06:25 08/02/22 06:25 Labs: Abnormal Lab Results - Last 24 Hours (Table) 08/02/22 08/02/22 08/02/22 Range/Units 06:25 06:25 07:40 RBC 2.51 L (4.10-5.20) X 10*6/uL Hgb 6.9 L* (12.0-15.0) g/dL Hct 24.4 L (37.2-46.3) % MCV 97.2 H (80.0-97.0) fL MCHC 28.3 L (32.0-37.0) g/dL RDW 19.1 H (11.5-14.5) % MPV 9.4 L (9.5-12.2) fL Immature Gran # 0.05 H (0.00-0.04) X 10*3/uL Lymphocytes # 0.21 L (0.90-5.00) X 10*3/uL Eosinophils # 0 L (0.04-0.35) X 10*3/uL Chloride 110 H (98-107) mmol/L Glucose 105 H (74-99) mg/dL POC Glucose (mg/dL) 122 H (70-110) mg/dL Calcium 7.2 L (8.4-10.2) mg/dL AST 67 H (14-36) U/L C-Reactive Protein 18.1 H (<1.0) mg/dL Total Protein 4.1 L (6.3-8.2) g/dL Albumin 1.7 L (3.5-5.0) g/dL Microbiology - Last 24 Hours (Table) 07/30/22 16:12 Blood Culture - Preliminary Blood No Growth after 48 hours 07/30/22 15:57 Blood Culture - Preliminary Blood No Growth after 48 hours
[2022-08-02] MEDS ORDERED: VANCOMYCIN TROUGH DUE 1 EACH MISC MISCELLANE ONE (16:00)
[2022-08-02 16:39] LABS: Glucose,Whole Blood 115 mg/dL (70-110)
[2022-08-02] MEDS ORDERED: VANCOMYCIN IV PER PHARMACY 1 EACH MISC MISCELLANE PRN (18:03)
--- NOTE | 2022-08-02 19:00 | P.PN ---
Subjective Progress Note Date: 08/02/22 62-year-old the female came in with the pain and swelling in the right inguinal area with fall swelling discharge patient is already on ceftreoloneand tazobatum, patient is also found to have COVID-19 patient also found to have COVID-19 patient the will be evaluated by infectious disease wound cultures were obtained. 08/01/2022 Patient is seen and evaluated in follow-up this morning with infectious disease following. Patient is maintained on IV antibiotics in the form of ceftolozane/ tazobactam and vancomycin. Infectious diseases consulted general surgery recommending debridement of the chronic abdominal wounds that appear infective with purulent drainage noted. Blood cultures remain negative and urine culture showing Jacki. Patient also incidentally found to have Covid currently main tained on 2 L via nasal cannula with 97-100% oxygen saturations. Patient denies shortness of breath. Patient continues with some intermittent confusion and is on a number of high-dose narcotics recommend holding for now and will discontinue fentanyl patch and monitor for improvement in mentation. Patient continues with poor oral intake and needs encouragement. Patient mostly fatigued and sleeping throughout the day per nursing staff. Patient is currently a resident at [facility] and will be returning there on discharge. Patient is afebrile and the white count is WBC is 7.18 and hemoglobin is 7.1 with no active bleeding noted. Potassium was replaced and repeat today is 3.5. Creatinine is 1.05. Blood sugars on the lower side and recommend continue monitoring Accu-Cheks before meals and at bedtime and will use sliding scale as needed. 08/02/2022 Patient is seen today and continued on abx with ID and surgery following. Plan is for abdominal abscess debridement and cultures tomorrow. Patient is continued on abx and vanco being discontinued. Vanco trough is elevated. Patient is covid positive and chronically wears 2-4 L of 02 via NC. Patient is also on IV decadron and will continue. Hemoglobin is 6.9 today and will transfuse one unit of PRBC today. Recommend repeat labs in the am. Patient is more awake and will slowly add medications for pain as needed. Patient is afebrile and no reports of chest pain or shortness of breath. No reports of nausea or vomiting. Patient will be NPO at midnight. REVIEW OF SYSTEMS: Unable to obtain as patient is lethargic PHYSICAL EXAMINATION: GENERAL: The patient is alert and oriented x1-2, more awake today. Well develop ed, well nourished. Morbidly obese HEENT: Pupils are round and equally reacting to light. EOMI. No scleral icterus. No conjunctival pallor. Normocephalic, atraumatic. No pharyngeal erythema. No thyromegaly. CARDIOVASCULAR: S1 and S2 muffled PULMONARY: Diminished breath sounds bilaterally with no wheezing or rhonchi noted. ABDOMEN: Soft, obese nontender, nondistended, normoactive bowel sounds. No palpable organomegaly. MUSCULOSKELETAL: No joint swelling or deformity. EXTREMITIES: No cyanosis, clubbing, or pedal edema. NEUROLOGICAL: Gross neurological examination did not reveal any focal deficits. Diffusely weak SKIN: Abscess in the right inguinal area and there is significant abdominal s welling redness Assessment: -Right inguinal abscess abdominal wall cellulitis, patient is presently on IV tazobactam and vancomycin infectious disease following -Persistent atrial fibrillation heart rate is well controlled at this time patient will be resumed on eliquis and digoxin -Incidental finding of COVID-19 patient is on oxygen but patient chronically wears oxygen at home patient doesn't have any acute hypoxic respiratory failure -Cerebral vascular accident with the stroke the posterior aspect of the left frontal lobe and coronary data -Type 2 diabetes mellitus -Morbid obesity -Gastroesophageal reflux disease -Essential hypertension -Urinary stress incontinence -Hypothyroidism -DVT prophylaxis: On eliquis which will be held for potential surgical intervention of the abdominal wall abscess Plan: Recommend continue on antibiotics and ID following. Surgical services following and tentatively scheduled for debridement and deep tissue cultures of this abdominal wall abscess and pannus Patient is receiving multiple narcotics and will hold as patient is lethargic and per nursing staff more awake today Recommend holding anticoagulant in the event of surgical debridement, scheduled with dr. Grove tomorrow Hemoglobin 6.9 and will transfuse a unit of PRBC and repeat labs. Continue monitoring Accu-Cheks before meals and at bedtime and continue with current regimen for now. Recommend repeat labs in the a.m. Case management following his patient will be returning to [facility] where she resides once discharged The impression and plan of care has been dictated by Lily Ramos, Nurse Practitioner as directed. Dr. Deniz MD I have performed a history and examination and MDM of this patient, discussed the same with the dictator, and agree with the dictator's assessment and plan as written ,documented as a scribe. Based on total visit time, I have performed more than 50% of the visit. Objective - Vital Signs Vital signs: Vital Signs Temp 97.9 F 08/02/22 10:00 Pulse 80 08/02/22 10:00 Resp 18 08/02/22 10:00 BP 144/78 08/02/22 10:00 Pulse Ox 99 08/02/22 10:00 FiO2 Intake & Output 08/01/22 08/02/22 08/02/22 18:59 06:59 18:59 Output Total 400 300 Balance -400 -300 Weight 165.561 kg Output: Urine 400 300 Other: Voiding Method Indwelling Catheter Indwelling Catheter Indwelling Catheter - Labs CBC & Chem 7: 08/02/22 06:25 08/02/22 06:25 Labs: Abnormal Lab Results - Last 24 Hours (Table) 08/02/22 08/02/22 08/02/22 Range/Units 06:25 06:25 07:40 RBC 2.51 L (4.10-5.20) X 10*6/uL Hgb 6.9 L* (12.0-15.0) g/dL Hct 24.4 L (37.2-46.3) % MCV 97.2 H (80.0-97.0) fL MCHC 28.3 L (32.0-37.0) g/dL RDW 19.1 H (11.5-14.5) % MPV 9.4 L (9.5-12.2) fL Immature Gran # 0.05 H (0.00-0.04) X 10*3/uL Lymphocytes # 0.21 L (0.90-5.00) X 10*3/uL Eosinophils # 0 L (0.04-0.35) X 10*3/uL Chloride 110 H (98-107) mmol/L Glucose 105 H (74-99) mg/dL POC Glucose (mg/dL) 122 H (70-110) mg/dL Calcium 7.2 L (8.4-10.2) mg/dL AST 67 H (14-36) U/L C-Reactive Protein 18.1 H (<1.0) mg/dL Total Protein 4.1 L (6.3-8.2) g/dL Albumin 1.7 L (3.5-5.0) g/dL Microbiology - Last 24 Hours (Table) 07/30/22 16:12 Blood Culture - Preliminary Blood No Growth after 48 hours 07/30/22 15:57 Blood Culture - Preliminary Blood No Growth after 48 hours
[2022-08-02 20:07] LABS: Glucose,Whole Blood 142 mg/dL (70-110)
[2022-08-02] MEDS: ATORVASTATIN 40 MG TAB PO SCH (22:25)
--- NOTE | 2022-08-02 22:47 | P.PN ---
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 On today's evaluation have that is 08/02/2022, the patient remains to be afebrile, patient is currently breathing comfortably on 2 L nasal cannula , the patient denies having any chest pain or worsening cough, the patient is still complaining of lower abdominal discomfort denies any diarrhea Objective - Vital Signs Vital signs: Vital Signs Temp 97.9 F 08/02/22 10:00 Pulse 80 08/02/22 10:00 Resp 18 08/02/22 10:00 BP 144/78 08/02/22 10:00 Pulse Ox 99 08/02/22 10:00 FiO2 Intake & Output 08/01/22 08/02/22 08/02/22 18:59 06:59 18:59 Output Total 400 300 Balance -400 -300 Weight 165.561 kg Output: Urine 400 300 Other: Voiding Method Indwelling Catheter Indwelling Catheter Indwelling Catheter - Exam GENERAL DESCRIPTION: Middle-aged female lying in bed, no distress. No tachypnea or accessory muscle of respiration use. LUNGS: Unlabored breathing. Coarse breath sounds bilaterally HEART: S1, S2, regular rate and rhythm. No loud murmur ABDOMEN: Soft lower abdominal wound is currently packed no significant redness EXTREMITIES: No edema of feet. - Labs CBC & Chem 7: 08/02/22 06:25 08/02/22 06:25 Labs: Abnormal Lab Results - Last 24 Hours (Table) 08/02/22 08/02/22 08/02/22 Range/Units 06:25 06:25 07:40 RBC 2.51 L (4.10-5.20) X 10*6/uL Hgb 6.9 L* (12.0-15.0) g/dL Hct 24.4 L (37.2-46.3) % MCV 97.2 H (80.0-97.0) fL MCHC 28.3 L (32.0-37.0) g/dL RDW 19.1 H (11.5-14.5) % MPV 9.4 L (9.5-12.2) fL Immature Gran # 0.05 H (0.00-0.04) X 10*3/uL Lymphocytes # 0.21 L (0.90-5.00) X 10*3/uL Eosinophils # 0 L (0.04-0.35) X 10*3/uL Chloride 110 H (98-107) mmol/L Glucose 105 H (74-99) mg/dL POC Glucose (mg/dL) 122 H (70-110) mg/dL Calcium 7.2 L (8.4-10.2) mg/dL AST 67 H (14-36) U/L C-Reactive Protein 18.1 H (<1.0) mg/dL Total Protein 4.1 L (6.3-8.2) g/dL Albumin 1.7 L (3.5-5.0) g/dL Microbiology - Last 24 Hours (Table) 07/30/22 16:12 Blood Culture - Preliminary Blood No Growth after 48 hours 07/30/22 15:57 Blood Culture - Preliminary Blood No Growth after 48 hours Assessment and Plan (1) Abdominal wall cellulitis Current Visit: Yes Status: Acute Code(s): L03.311 - CELLULITIS OF ABDOMINAL WALL SNOMED Code(s): 95399522 (2) COVID Current Visit: Yes Status: Acute Code(s): U07.1 - COVID-19 SNOMED Code(s): 940960858 Plan: 1patient with a chronic nonhealing wound to bilateral groin area in this patient with a 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 she did have extensive debridement of the wound on last admission one of the cultures are positive for ESBL Klebsiella last urine culture positive for ESBL Klebsiella CRE Pseudomonas and did have a staph epi infection of the midline which was discontinued now presenting with the worsening wound and drainage CT abdominal pelvis did not show any evidence of abscess 2-patient did have a positive COVID test with mild respiratory symptoms, patient to continue with dexamethasone zinc and ascorbic acid anticoagulation has been put on hold for anticipated surgery 3-Pt to continue vancomycin and Zerbaxa, awaiting surgical debridement and deep culture Scheduled for 08/03/2022, with further adjustment of antibiotic on the basis of repeat culture and clinical response Time with Patient: Less than 30
[2022-08-03] MEDS: CEFTOLOZANE/TAZOBACTAM 1.5 GM in SODIUM CHLORIDE 0.9% 100 ML IV SCH ×4 (00:43→23:55)
[2022-08-03] MEDS: ALBUTEROL HFA INHALER INHALATION SCH ×5 (02:08→19:47)
[2022-08-03] MEDS ORDERED: MIDAZOLAM 2 MG/2 ML VIAL IV PRN (06:57)
[2022-08-03] MEDS ORDERED: ONDANSETRON 4 MG/2 ML VIAL IVP ONE (06:57)
[2022-08-03] MEDS ORDERED: LIDOCAINE 1% (10MG/ML) FOR IV START INTRADERMA PRN (06:57)
[2022-08-03] MEDS ORDERED: HYDROmorphone 0.5 MG/0.5 ML SYRINGE IVP PRN (07:00)
[2022-08-03 07:14] LABS: Glucose,Whole Blood 95 mg/dL (70-110)
[2022-08-03] MEDS: INSULIN ASPART (NovoLOG) 100 UNIT/ML VIAL SQ SCH ×4 (07:55→21:22)
[2022-08-03] MEDS: PSYLLIUM HUSK 100% 6 GM PACKET PO SCH (07:57)
[2022-08-03] MEDS: PANTOPRAZOLE 40 MG/10 ML VIAL IV SCH (08:01)
[2022-08-03] MEDS: DEXAMETHASONE SOD PHOSPHATE 10 MG/ML 1 ML VIAL IV SCH (08:01)
[2022-08-03] MEDS: ASCORBIC ACID 500 MG TAB PO SCH (08:02)
[2022-08-03] MEDS: METOPROLOL TARTRATE 50 MG TAB PO SCH ×3 (08:02→20:22)
[2022-08-03] MEDS: ZINC SULFATE 220 MG CAP PO SCH (08:02)
[2022-08-03] MEDS: FAMOTIDINE 20 MG TAB PO SCH (08:02)
[2022-08-03] MEDS: DIGOXIN 125 MCG TAB PO SCH (08:02)
[2022-08-03] MEDS: LEVOTHYROXINE 100 MCG TAB PO SCH (08:02)
[2022-08-03] MEDS: OXYBUTYNIN 10 MG TAB.ER.24 PO SCH (08:02)
[2022-08-03] MEDS: ESCITALOPRAM 10 MG TAB PO SCH (08:02)
[2022-08-03 08:23] LABS: African American GFR (CKD) 72 (>60 ml/min/1.73 sqM); Anion Gap 6 mmol/L; Blood Urea Nitrogen 18 mg/dL (7-17); Calcium 7.7 mg/dL (8.4-10.2); Carbon Dioxide 24 mmol/L (22-30); Chloride 111 mmol/L (98-107); Glucose 96 mg/dL (74-99); Non-African American GFR(CKD) 63 (>60 ml/min/1.73 sqM); Potassium 3.8 mmol/L (3.5-5.1); Sodium 141 mmol/L (137-145)
[2022-08-03 08:43] LABS: Vancomycin,Random 29.5 ug/mL
[2022-08-03 10:54] LABS: Basophils # (A) 0.01 X 10*3/uL (0.00-0.10); Basophils % (A) 0.1 %; Eosinophils # (A) 0 X 10*3/uL (0.04-0.35); Eosinophils % (A) 0 %; HCT 28.6 % (37.2-46.3); HGB 8.2 g/dL (12.0-15.0); Immature Grans, Automated 0.8 %; Lymphocytes # (A) 0.29 X 10*3/uL (0.90-5.00); Lymphocytes % (A) 3.5 %; MCH 27.6 pg (27.0-32.0); MCHC 28.7 g/dL (32.0-37.0); MCV 96.3 fL (80.0-97.0); Mean Platelet Volume 9.6 fL (9.5-12.2); Monocytes # (A) 0.48 X 10*3/uL (0.20-1.00); Monocytes % (A) 5.7 %; NRBC Per 100 WBC 0 /100 WBCS (0.0-0.0); Neutrophils % (A) 89.9 %; Platelet Count 356 X 10*3/uL (140-440); RBC 2.97 X 10*6/uL (4.10-5.20); RDW 19.6 % (11.5-14.5); WBC 8.35 X 10*3/uL (4.50-10.00)
[2022-08-03] MEDS ORDERED: PHENYLEPHRINE-0.9% NACL SYG 1,000 MCG/10 ML SYRINGE ONE (11:21)
[2022-08-03] MEDS ORDERED: SUCCINYLCHOLINE CHLORIDE 200 MG/10 ML VIAL IV ONE (11:21)
[2022-08-03] MEDS ORDERED: PROPOFOL 10 MG/ML 20 ML VIAL IV ONE (11:21)
[2022-08-03] MEDS ORDERED: fentaNYL (PF) 50 MCG/ML 2 ML AMP ONE (11:21)
[2022-08-03] MEDS ORDERED: ONDANSETRON 4 MG/2 ML VIAL ONE (11:21)
[2022-08-03] MEDS ORDERED: LIDOCAINE 2% INJ 20 MG/ML (2 ML VIAL) ONE (11:21)
[2022-08-03] MEDS ORDERED: SODIUM CHLORIDE 0.9% 500 ML 300 ML IV ONE (11:56)
[2022-08-03] MEDS ORDERED: SODIUM CHLORIDE 0.9% 1,000 ML IV ONE (11:56)
[2022-08-03] MEDS ORDERED: LACTATED RINGERS 1,000 ML IV ONE (11:56)
--- NOTE | 2022-08-03 13:47 | P.OP ---
Date of Procedure: 08/03/22 Description of Procedure: SURGEON: CHIKI MUNOZ MD YARD CALLER: None. PREOPERATIVE DIAGNOSES: 1. Complex abdominal pannus wound with necrosis 2. History of uterine/ovarian cancer and pelvic radiation 3. Morbid obesity due to excess calories, BMI 48.9 4. Panniculitis, over 50 pounds 5. History of cerebrovascular accident 6. Atrial fibrillation with rapid ventricular response 7. Hypothyroidism 8. Insulin-dependent diabetes type 2 with retinopathy 9. Gastroesophageal reflux disease 10. Hyperlipidemia 11. Chronic anticoagulation 12. Anemia due to chronic disease 13. Coronavirus positive pneumonia POSTOPERATIVE DIAGNOSES: 1. Complex abdominal pannus wound with necrosis 38 x 12 cm 2. History of uterine cancer and radiation 3. Morbid obesity due to excess calories, BMI 48.9 4. Panniculitis, over 50 pounds 5. Recent cerebrovascular accident 6. Atrial fibrillation with rapid ventricular response 7. Hypothyroidism 8. Insulin-dependent diabetes type 2 with retinopathy 9. Gastroesophageal reflux disease 10. Hyperlipidemia 11. Chronic anticoagulation 12. Complex right groin growing, 20 x 12 cm 13. Complex pubic wound 8 x 10 cm 14. Coronavirus positive pneumonia PROCEDURES PERFORMED: 1. Sharp excisional debridement using #10 and #12 blade of pannus, 38 x 12 cm s ubcutaneous tissue 2. Mechanical debridement using Pulsavac lavage 3 L normal saline solution with high pressure water jet, 38 x 12 cm, pannus 3. Mechanical debridement using Pulsavac lavage normal saline solution with high pressure water jet, 8 x 12 cm, right groin Anesthesia: GETA Estimated Blood Loss (ml): 100 Pathology: Excisional debridment wound including aerobic and anaerobic cultures Condition: stable COMPLICATIONS: None. Operative Findings: 1. Dark superficial eschar necrotizing fat of the pannus, 38 x 12 cm sharply debrided using #10 blade 2. Yamilet pubic wound subcutaneous tissue, 8 x 8 cm 3. Yamilet right groin, 20 x 4 cm INDICATIONS: The patient is a 62-year-old female who presents with necrotic pannus and prior complex right groin wound. Benefits and risks of bleeding, infection, need for additional surgery, cosmetic deformity was described. Informed consent was obtained. DESCRIPTION OR PROCEDURE: Patient was brought into the operating room. After general induction, she was positioned in supine position. Due to her 50 pound pannus, the pannus was retracted by the automobile mechanic assistant. The wound was prepped and draped with chlorhexidine soap. Timeout protocol was confirmed with the surgical team regarding the patient's name, procedure to be performed including preoperative medications for which she is on scheduled IV antibiotics. DVT prophylaxis was confirmed with heparin and sequential compression devices. The patient was on scheduled IV antibiotics. After extensive wide draping, attention was brought to the pannus which was suspended with assistance. Sharp excisional debridement of the pannus using #10 and #12 blade was performed to the subcutaneous tissue with healthy bleeding tissue. 38 x 12 cm defect was identified into subcutaneous tissue. Aerobic and anaerobic cultures were obtained of the deep wound. The wound was copiously irrigated using Pulsavac normal saline 3 L normal saline with mechanically debrided with a sponges using chlorhexidine soap. Bleeding was controlled using electro-Bovie cautery. Attention was brought to the right groin where healthy granulation tissue of the skin was identified. The wound had contracted from 48 x 12 cm to 20 x 4 cm. The pubic wound was contracted 8 x 8 cm. The wound was debrided using water jet Pulsavac normal saline. Both wounds, 3 L normal saline solution was used for mechanical debridement using Pulsavac. At the end of the procedure, needle, sponge, and instrument count was verified correct by surgical elastic knitter hand frame. Due to her active Covid pneumonia infection, demetrio daugherty was recovered in the operating room.
[2022-08-03] MEDS: LACTATED RINGERS 1,000 ML IV SCH (14:41)
[2022-08-03 16:29] LABS: Glucose,Whole Blood 149 mg/dL (70-110)
[2022-08-03] MEDS: HYDROmorphone 1 MG/ML 1 ML SYRINGE IVP PRN (19:52)
[2022-08-03] MEDS: ATORVASTATIN 40 MG TAB PO SCH (20:22)
[2022-08-03 20:26] LABS: Glucose,Whole Blood 138 mg/dL (70-110)
[2022-08-04 07:10] LABS: Glucose,Whole Blood 93 mg/dL (70-110)
[2022-08-04] MEDS: ALBUTEROL HFA INHALER INHALATION SCH ×4 (07:31→20:42)
[2022-08-04] MEDS: INSULIN ASPART (NovoLOG) 100 UNIT/ML VIAL SQ SCH ×4 (07:32→20:38)
[2022-08-04] MEDS: ASCORBIC ACID 500 MG TAB PO SCH (07:42)
[2022-08-04] MEDS: OXYBUTYNIN 10 MG TAB.ER.24 PO SCH (07:43)
[2022-08-04] MEDS: PANTOPRAZOLE 40 MG/10 ML VIAL IV SCH (07:43)
[2022-08-04] MEDS: DEXAMETHASONE SOD PHOSPHATE 10 MG/ML 1 ML VIAL IV SCH (07:43)
[2022-08-04] MEDS: DIGOXIN 125 MCG TAB PO SCH (07:43)
[2022-08-04] MEDS: METOPROLOL TARTRATE 50 MG TAB PO SCH ×3 (07:44→20:37)
[2022-08-04] MEDS: LEVOTHYROXINE 100 MCG TAB PO SCH (07:44)
[2022-08-04] MEDS: FAMOTIDINE 20 MG TAB PO SCH (07:44)
[2022-08-04] MEDS: ZINC SULFATE 220 MG CAP PO SCH (07:44)
[2022-08-04] MEDS: PSYLLIUM HUSK 100% 6 GM PACKET PO SCH (07:45)
[2022-08-04] MEDS: ESCITALOPRAM 10 MG TAB PO SCH (07:45)
[2022-08-04] MEDS: CEFTOLOZANE/TAZOBACTAM 1.5 GM in SODIUM CHLORIDE 0.9% 100 ML IV SCH ×2 (08:36→17:04)
--- NOTE | 2022-08-04 09:32 | PN ---
PROGRESS NOTE SUBJECTIVE: This 62-year-old woman, who was admitted with right inguinal abscess and multiple complex medical issues. The patient is COVID positive also. The patient is ready for surgery today. OBJECTIVE: VITAL SIGNS: Pulse is 66, blood pressure ntd, respirations 17. HEENT: Conjunctivae normal. NECK: No JVD. CARDIOVASCULAR: S1, S2. RESPIRATION: ntd ABDOMEN: Soft. Tenderness present in the abdominal wall. NERVOUS SYSTEM: Diffusely weak. LABORATORY DATA: Reviewed. Hemoglobin 8.2. ASSESSMENT: 1. Right inguinal abdominal abscess and cellulitis. 2. Persistent atrial fibrillation. 3. Acute COVID-19. 4. History of cerebrovascular accident. 5. Multiple medical issues. RECOMMENDATIONS: In this 62-year-old woman, who presented with multiple complex medical issues, we will monitor the patient closely. Continue the antibiotics. Follow closely with Surgery. Repeat labs. Prognosis guarded. See orders for further details. Further recommendations to follow. MMODL / IJN: [id number] / MTDD
[2022-08-04] MEDS: LACTATED RINGERS 1,000 ML IV SCH (10:07)
[2022-08-04] MEDS: MULTIVITAMINS, THERA LIQUID 237 ML BOTTLE PO SCH (10:07)
[2022-08-04] MEDS: SODIUM FERRIC GLUCONAT-SUCROSE 125 MG in SODIUM CHLORIDE 0.9% 100 ML IVPB SCH (10:12)
--- NOTE | 2022-08-04 11:16 | P.PN ---
Subjective Progress Note Date: 08/04/22 Principal diagnosis: Groin wound Patient underwent debridement yesterday of her pannicular wounds. Doing better today. Having appropriate level of discomfort. She is afebrile. Objective - Vital Signs Vital signs: Vital Signs Temp 96.9 F L 08/04/22 07:38 Pulse 58 L 08/04/22 07:38 Resp 17 08/04/22 07:38 BP 98/64 08/04/22 07:38 Pulse Ox 100 08/04/22 07:38 FiO2 Intake & Output 08/03/22 08/04/22 08/04/22 18:59 06:59 18:59 Intake Total 900 Output Total 50 Balance 850 Weight 165.561 kg Intake: IV 900 Output: Estimated Blood Loss 50 Other: Voiding Method Indwelling Catheter Indwelling Catheter # Voids 8 # Bowel Movements 1 - Exam Pannicular wounds and right groin wound dressed appropriately, mild tenderness, no erythema - Labs CBC & Chem 7: 08/03/22 07:51 08/03/22 07:51 Labs: Abnormal Lab Results - Last 24 Hours (Table) 08/03/22 08/03/22 Range/Units 16:27 20:24 POC Glucose (mg/dL) 149 H 138 H (70-110) mg/dL Microbiology - Last 24 Hours (Table) 08/03/22 12:40 Gram Stain - Preliminary Abdomen Wound Culture - Preliminary 07/30/22 16:12 Blood Culture - Preliminary Blood No Growth after 96 hours 07/30/22 15:57 Blood Culture - Preliminary Blood No Growth after 96 hours 08/03/22 12:40 Anaerobic Culture - Preliminary Abdomen Assessment and Plan (1) Abdominal wall cellulitis Narrative/Plan: Patient with chronic panniculitis and radiation necrosis. Continue local wound care. Continue analgesics. Current Visit: Yes Status: Acute Code(s): L03.311 - CELLULITIS OF ABDOMINAL WALL SNOMED Code(s): 29976308
[2022-08-04 11:35] LABS: Basophils # (A) 0.01 X 10*3/uL (0.00-0.10); Basophils % (A) 0.1 %; Eosinophils # (A) 0.01 X 10*3/uL (0.04-0.35); Eosinophils % (A) 0.1 %; HCT 26.8 % (37.2-46.3); HGB 7.6 g/dL (12.0-15.0); Immature Grans, Automated 1.8 %; Lymphocytes % (A) 2.8 %; MCH 27.5 pg (27.0-32.0); MCHC 28.4 g/dL (32.0-37.0); MCV 97.1 fL (80.0-97.0); Mean Platelet Volume 9.5 fL (9.5-12.2); Monocytes # (A) 0.73 X 10*3/uL (0.20-1.00); Monocytes % (A) 6.9 %; NRBC Per 100 WBC 0 /100 WBCS (0.0-0.0); Neutrophils # (A) 9.29 X 10*3/uL (1.80-7.70); Neutrophils % (A) 88.3 %; Platelet Count 387 X 10*3/uL (140-440); RBC 2.76 X 10*6/uL (4.10-5.20); RDW 19.9 % (11.5-14.5); WBC 10.53 X 10*3/uL (4.50-10.00)
[2022-08-04 11:39] LABS: Glucose,Whole Blood 152 mg/dL (70-110)
[2022-08-04 12:11] LABS: Anion Gap 11.4 mmol/L (10.00-18.00); BUN/Creat Ratio 17.96 Ratio (12.00-20.00); Blood Urea Nitrogen 18.5 mg/dL (9.0-27.0); Calcium 7.9 mg/dL (8.7-10.3); Non-African American GFR(CKD) 57.8 (60.0-200.0); Potassium 3.9 mmol/L (3.5-5.5)
--- NOTE | 2022-08-04 13:38 | P.PN ---
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 Patient is status post surgical debridement of her lower abdominal wound completed on 08/03/2022 On today's evaluation have that is 08/03/2022, the patient continues to be afebrile, patient is currently breathing comfortably on 2 L nasal cannula , the patient denies having any chest pain, the patient did have occasional dry cough, the patient denies any worsening pain to the lower abdominal area denies any diarrhea Objective - Vital Signs Vital signs: Vital Signs Temp 98.2 F 08/03/22 07:40 Pulse 66 08/03/22 07:40 Resp 17 08/03/22 07:40 BP 136/84 08/03/22 07:40 Pulse Ox 97 08/03/22 07:40 FiO2 Intake & Output 08/02/22 08/03/22 08/03/22 18:59 06:59 18:59 Intake Total 0 310 900 Output Total 950 325 50 Balance -950 -15 850 Weight 165.561 kg Intake: IV 900 Blood Product 0 310 Rc As-1 Unit 0 310 [id number] Output: Urine 950 325 Estimated Blood Loss 50 Other: Voiding Method Indwelling Catheter Indwelling Catheter Indwelling Catheter - Exam GENERAL DESCRIPTION: Middle-aged female lying in bed, no distress. No tachypnea or accessory muscle of respiration use. LUNGS: Unlabored breathing. Coarse breath sounds bilaterally HEART: S1, S2, regular rate and rhythm. No loud murmur ABDOMEN: Soft lower abdominal wound is currently packed no significant redness EXTREMITIES: No edema of feet. - Labs CBC & Chem 7: 08/04/22 07:01 08/04/22 07:01 Labs: Abnormal Lab Results - Last 24 Hours (Table) 08/02/22 08/02/22 08/02/22 Range/Units 06:25 12:44 16:22 RBC (4.10-5.20) X 10*6/uL Hgb (12.0-15.0) g/dL Hct (37.2-46.3) % MCHC (32.0-37.0) g/dL RDW (11.5-14.5) % Immature Gran # (0.00-0.04) X 10*3/uL Lymphocytes # (0.90-5.00) X 10*3/uL Eosinophils # (0.04-0.35) X 10*3/uL Chloride (98-107) mmol/L BUN (7-17) mg/dL POC Glucose (mg/dL) (70-110) mg/dL Calcium (8.4-10.2) mg/dL Procalcitonin 0.17 H (0.02-0.09) ng/mL Vancomycin Trough 36.1 H* ug/mL Crossmatch See Detail 08/02/22 08/02/22 08/03/22 Range/Units 16:37 20:05 07:51 RBC (4.10-5.20) X 10*6/uL Hgb (12.0-15.0) g/dL Hct (37.2-46.3) % MCHC (32.0-37.0) g/dL RDW (11.5-14.5) % Immature Gran # (0.00-0.04) X 10*3/uL Lymphocytes # (0.90-5.00) X 10*3/uL Eosinophils # (0.04-0.35) X 10*3/uL Chloride 111 H (98-107) mmol/L BUN 18 H (7-17) mg/dL POC Glucose (mg/dL) 115 H 142 H (70-110) mg/dL Calcium 7.7 L (8.4-10.2) mg/dL Procalcitonin (0.02-0.09) ng/mL Vancomycin Trough ug/mL Crossmatch 08/03/22 Range/Units 07:51 RBC 2.97 L (4.10-5.20) X 10*6/uL Hgb 8.2 L (12.0-15.0) g/dL Hct 28.6 L (37.2-46.3) % MCHC 28.7 L (32.0-37.0) g/dL RDW 19.6 H (11.5-14.5) % Immature Gran # 0.07 H (0.00-0.04) X 10*3/uL Lymphocytes # 0.29 L (0.90-5.00) X 10*3/uL Eosinophils # 0 L (0.04-0.35) X 10*3/uL Chloride (98-107) mmol/L BUN (7-17) mg/dL POC Glucose (mg/dL) (70-110) mg/dL Calcium (8.4-10.2) mg/dL Procalcitonin (0.02-0.09) ng/mL Vancomycin Trough ug/mL Crossmatch Microbiology - Last 24 Hours (Table) 08/02/22 15:28 Urine Culture - Preliminary Urine,Catheterized 07/30/22 16:12 Blood Culture - Preliminary Blood No Growth after 72 hours 07/30/22 15:57 Blood Culture - Preliminary Blood No Growth after 72 hours Assessment and Plan (1) Abdominal wall cellulitis Current Visit: Yes Status: Acute Code(s): L03.311 - CELLULITIS OF ABDOMINAL WALL SNOMED Code(s): 39612856 (2) COVID Current Visit: Yes Status: Acute Code(s): U07.1 - COVID-19 SNOMED Code(s): 674507216 Plan: 1patient with a chronic nonhealing wound to bilateral groin area in this patient with a 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 she did have extensive debridement of the wound on last admission one of the cultures are positive for ESBL Klebsiella last urine culture positive for ESBL Klebsiella CRE Pseudomonas and did have a staph epi infection of the midline which was discontinued now presenting with the worsening wound and drainage CT abdominal pelvis did not show any evidence of abscess 2-patient did have a positive COVID test with mild respiratory symptoms, patient to continue with dexamethasone zinc and ascorbic acid 3-Pt seemed show some clinical improvement and will continue vancomycin and Zerbaxa, while waiting for the cultures obtained today to be finalize Time with Patient: Less than 30
--- NOTE | 2022-08-04 13:39 | P.PN ---
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 Patient is status post surgical debridement of her lower abdominal wound completed on 08/03/2022 On today's evaluation have that is 08/04/2022, the patient remains to be afebrile, patient is breathing comfortably on 2 L nasal cannula , the patient denies having any chest pain, the patient denies any worsening cough or sputum production, the patient denies any worsening pain to the lower abdominal area denies any diarrhea Objective - Vital Signs Vital signs: Vital Signs Temp 96.9 F L 08/04/22 07:38 Pulse 58 L 08/04/22 07:38 Resp 17 08/04/22 07:38 BP 98/64 08/04/22 07:38 Pulse Ox 100 08/04/22 07:38 FiO2 Intake & Output 08/03/22 08/04/22 08/04/22 18:59 06:59 18:59 Intake Total 900 Output Total 50 Balance 850 Weight 165.561 kg Intake: IV 900 Output: Estimated Blood Loss 50 Other: Voiding Method Indwelling Catheter Indwelling Catheter # Voids 8 # Bowel Movements 1 - Exam GENERAL DESCRIPTION: Middle-aged female lying in bed, no distress. No tachypnea or accessory muscle of respiration use. LUNGS: Unlabored breathing. Coarse breath sounds bilaterally HEART: S1, S2, regular rate and rhythm. No loud murmur ABDOMEN: Soft lower abdominal wound is currently packed no significant redness EXTREMITIES: No edema of feet. - Labs CBC & Chem 7: 08/04/22 07:01 08/04/22 07:01 Labs: Abnormal Lab Results - Last 24 Hours (Table) 08/03/22 08/03/22 08/04/22 Range/Units 16:27 20:24 07:01 WBC 10.53 H (4.50-10.00) X 10*3/uL RBC 2.76 L (4.10-5.20) X 10*6/uL Hgb 7.6 L (12.0-15.0) g/dL Hct 26.8 L (37.2-46.3) % MCV 97.1 H (80.0-97.0) fL MCHC 28.4 L (32.0-37.0) g/dL RDW 19.9 H (11.5-14.5) % Immature Gran # 0.19 H (0.00-0.04) X 10*3/uL Neutrophils # 9.29 H (1.80-7.70) X 10*3/uL Lymphocytes # 0.30 L (0.90-5.00) X 10*3/uL Eosinophils # 0.01 L (0.04-0.35) X 10*3/uL Sodium (135-145) mmol/L Chloride (96-109) mmol/L Est GFR (CKD-EPI)NonAf (60.0-200.0) POC Glucose (mg/dL) 149 H 138 H (70-110) mg/dL Calcium (8.7-10.3) mg/dL 08/04/22 08/04/22 Range/Units 07:01 11:38 WBC (4.50-10.00) X 10*3/uL RBC (4.10-5.20) X 10*6/uL Hgb (12.0-15.0) g/dL Hct (37.2-46.3) % MCV (80.0-97.0) fL MCHC (32.0-37.0) g/dL RDW (11.5-14.5) % Immature Gran # (0.00-0.04) X 10*3/uL Neutrophils # (1.80-7.70) X 10*3/uL Lymphocytes # (0.90-5.00) X 10*3/uL Eosinophils # (0.04-0.35) X 10*3/uL Sodium 148 H (135-145) mmol/L Chloride 113 H (96-109) mmol/L Est GFR (CKD-EPI)NonAf 57.8 L (60.0-200.0) POC Glucose (mg/dL) 152 H (70-110) mg/dL Calcium 7.9 L (8.7-10.3) mg/dL Microbiology - Last 24 Hours (Table) 08/02/22 15:28 Urine Culture - Final Urine,Catheterized Jacki albicans 08/03/22 12:40 Gram Stain - Preliminary Abdomen Wound Culture - Preliminary Gram Neg Bacilli 07/30/22 16:12 Blood Culture - Preliminary Blood No Growth after 96 hours 07/30/22 15:57 Blood Culture - Preliminary Blood No Growth after 96 hours 08/03/22 12:40 Anaerobic Culture - Preliminary Abdomen Assessment and Plan (1) Abdominal wall cellulitis Current Visit: Yes Status: Acute Code(s): L03.311 - CELLULITIS OF ABDOMINAL WALL SNOMED Code(s): 80497113 (2) COVID Current Visit: Yes Status: Acute Code(s): U07.1 - COVID-19 SNOMED Code(s): 264255766 Plan: 1patient with a chronic nonhealing wound to bilateral groin area in this patient with a 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 she did have extensive debridement of the wound on last admission one of the cultures are positive for ESBL Klebsiella last urine culture positive for ESBL Klebsiella CRE Pseudomonas and did have a staph epi infection of the midline which was discontinued now presenting with the worsening wound and drainage CT abdominal pelvis did not show any evidence of abscess 2-patient did have a positive COVID test with mild respiratory symptoms, patient to continue with dexamethasone zinc and ascorbic acid 3-Pt seemed show some clinical improvement and local cultures obtained yesterday are currently showing gram-negative bacilli will wait for the ID and sensitivity continue the vancomycin and the Zerbexa while waiting for the cultures to finalize
[2022-08-04 16:48] LABS: Glucose,Whole Blood 136 mg/dL (70-110)
[2022-08-04] MEDS: HYDROmorphone 1 MG/ML 1 ML SYRINGE IVP PRN (17:05)
[2022-08-04 19:57] LABS: Glucose,Whole Blood 238 mg/dL (70-110)
[2022-08-04] MEDS: ATORVASTATIN 40 MG TAB PO SCH (20:37)
[2022-08-05] MEDS: CEFTOLOZANE/TAZOBACTAM 1.5 GM in SODIUM CHLORIDE 0.9% 100 ML IV SCH ×4 (00:36→23:56)
--- NOTE | 2022-08-05 05:08 | PN ---
PROGRESS NOTE SUBJECTIVE: This 62-year-old woman presented with right inguinal hernia and abscess, had surgery yesterday. No chest pain. No palpitations. The patient is apparently refusing medications. PHYSICAL EXAMINATION: VITAL SIGNS: Pulse is 85, blood pressure 120/78, respirations 17. HEENT: Conjunctivae normal. NECK: No JVD. CARDIOVASCULAR: S1, S2 muffled. RESPIRATIONS: A few scattered rhonchi. ABDOMEN: Soft, obese. LEGS: No edema. NERVOUS SYSTEM: No focal deficits. LABS: Hemoglobin 7.6. Other labs are noted. ASSESSMENT: 1. Right inguinal abdominal abscess and cellulitis, status post incision and debridement. 2. Persistent atrial fibrillation. 3. Acute COVID-19 infection. 4. History of cerebrovascular accident. 5. Multiple medical issues. RECOMMENDATIONS AND DISCUSSION: Recommend to continue current medications, and symptomatic treatment. Otherwise, I would recommend repeat labs in the morning and also apparently the family spoke with the camp nurse regarding the legal guardianship. We will continue to monitor. Prognosis guarded. Closely follow with Surgery. See orders for further details. MMODL / IJN: [id number] /
[2022-08-05 07:01] LABS: African American GFR (CKD) 75 (>60 ml/min/1.73 sqM); Anion Gap 8 mmol/L; Blood Urea Nitrogen 19 mg/dL (7-17); Carbon Dioxide 25 mmol/L (22-30); Chloride 111 mmol/L (98-107); Glucose 69 mg/dL (74-99); Non-African American GFR(CKD) 65 (>60 ml/min/1.73 sqM); Potassium 3.9 mmol/L (3.5-5.1); Sodium 144 mmol/L (137-145)
[2022-08-05 07:06] LABS: Vancomycin,Random 18.2 ug/mL
[2022-08-05 07:20] LABS: Glucose,Whole Blood 78 mg/dL (70-110)
[2022-08-05] MEDS: ALBUTEROL HFA INHALER INHALATION SCH ×4 (07:37→20:22)
[2022-08-05] MEDS: INSULIN ASPART (NovoLOG) 100 UNIT/ML VIAL SQ SCH ×4 (08:27→21:39)
[2022-08-05] MEDS: LACTATED RINGERS 1,000 ML IV SCH (08:27)
[2022-08-05] MEDS: LEVOTHYROXINE 100 MCG TAB PO SCH (08:28)
[2022-08-05] MEDS: ZINC SULFATE 220 MG CAP PO SCH (08:28)
[2022-08-05] MEDS: METOPROLOL TARTRATE 50 MG TAB PO SCH ×3 (08:28→21:43)
[2022-08-05] MEDS: FAMOTIDINE 20 MG TAB PO SCH (08:28)
[2022-08-05] MEDS: ASCORBIC ACID 500 MG TAB PO SCH (08:28)
[2022-08-05] MEDS: DIGOXIN 125 MCG TAB PO SCH (08:29)
[2022-08-05] MEDS: OXYBUTYNIN 10 MG TAB.ER.24 PO SCH (08:29)
[2022-08-05] MEDS: ESCITALOPRAM 10 MG TAB PO SCH (08:29)
[2022-08-05] MEDS: DEXAMETHASONE SOD PHOSPHATE 10 MG/ML 1 ML VIAL IV SCH (08:29)
[2022-08-05] MEDS: MULTIVITAMINS, THERA LIQUID 237 ML BOTTLE PO SCH (08:29)
[2022-08-05] MEDS: PANTOPRAZOLE 40 MG/10 ML VIAL IV SCH (08:30)
[2022-08-05] MEDS: PSYLLIUM HUSK 100% 6 GM PACKET PO SCH (08:30)
[2022-08-05 10:17] LABS: Basophils # (A) 0.01 X 10*3/uL (0.00-0.10); Basophils % (A) 0.1 %; Eosinophils # (A) 0.02 X 10*3/uL (0.04-0.35); Eosinophils % (A) 0.2 %; HCT 27.3 % (37.2-46.3); HGB 7.8 g/dL (12.0-15.0); Lymphocytes # (A) 0.24 X 10*3/uL (0.90-5.00); Lymphocytes % (A) 2.6 %; MCH 28.1 pg (27.0-32.0); MCHC 28.6 g/dL (32.0-37.0); MCV 98.2 fL (80.0-97.0); Monocytes # (A) 0.52 X 10*3/uL (0.20-1.00); Monocytes % (A) 5.7 %; NRBC Per 100 WBC 0 /100 WBCS (0.0-0.0); Neutrophils # (A) 8.19 X 10*3/uL (1.80-7.70); Neutrophils % (A) 90.4 %; Platelet Count 408 X 10*3/uL (140-440); RBC 2.78 X 10*6/uL (4.10-5.20); RDW 20.1 % (11.5-14.5); WBC 9.07 X 10*3/uL (4.50-10.00)
[2022-08-05] MEDS: SODIUM FERRIC GLUCONAT-SUCROSE 125 MG in SODIUM CHLORIDE 0.9% 100 ML IVPB SCH (10:21)
[2022-08-05 11:07] LABS: Glucose,Whole Blood 266 mg/dL (70-110)
[2022-08-05] MEDS ORDERED: HYDROcodone/APAP 5-325MG 1 EACH TAB PO PRN (11:29)
--- NOTE | 2022-08-05 11:38 | P.PN ---
Subjective Progress Note Date: 08/05/22 Principal diagnosis: Groin wound Patient resting completed. Denies any new pain. Objective - Vital Signs Vital signs: Vital Signs Temp 98.9 F 08/05/22 10:00 Pulse 72 08/05/22 10:00 Resp 17 08/05/22 10:00 BP 115/94 08/05/22 10:00 Pulse Ox 96 08/05/22 10:00 FiO2 Intake & Output 08/04/22 08/05/22 08/05/22 18:59 06:59 18:59 Output Total 600 925 Balance -600 -925 Output: Urine 600 925 Other: Voiding Method Indwelling Catheter # Bowel Movements 1 - Exam Pannicular wounds and right groin wound dressed appropriately, mild tenderness, no erythema - Labs CBC & Chem 7: 08/05/22 05:31 08/05/22 05:31 Labs: Abnormal Lab Results - Last 24 Hours (Table) 08/04/22 08/04/22 08/04/22 Range/Units 07:01 11:38 16:46 RBC (4.10-5.20) X 10*6/uL Hgb (12.0-15.0) g/dL Hct (37.2-46.3) % MCV (80.0-97.0) fL MCHC (32.0-37.0) g/dL RDW (11.5-14.5) % Immature Gran # (0.00-0.04) X 10*3/uL Neutrophils # (1.80-7.70) X 10*3/uL Lymphocytes # (0.90-5.00) X 10*3/uL Eosinophils # (0.04-0.35) X 10*3/uL Sodium 148 H (135-145) mmol/L Chloride 113 H (96-109) mmol/L BUN (7-17) mg/dL Est GFR (CKD-EPI)NonAf 57.8 L (60.0-200.0) Glucose (74-99) mg/dL POC Glucose (mg/dL) 152 H 136 H (70-110) mg/dL Calcium 7.9 L (8.7-10.3) mg/dL 08/04/22 08/05/22 08/05/22 Range/Units 19:55 05:31 05:31 RBC 2.78 L (4.10-5.20) X 10*6/uL Hgb 7.8 L (12.0-15.0) g/dL Hct 27.3 L (37.2-46.3) % MCV 98.2 H (80.0-97.0) fL MCHC 28.6 L (32.0-37.0) g/dL RDW 20.1 H (11.5-14.5) % Immature Gran # 0.09 H (0.00-0.04) X 10*3/uL Neutrophils # 8.19 H (1.80-7.70) X 10*3/uL Lymphocytes # 0.24 L (0.90-5.00) X 10*3/uL Eosinophils # 0.02 L (0.04-0.35) X 10*3/uL Sodium (135-145) mmol/L Chloride 111 H (96-109) mmol/L BUN 19 H (7-17) mg/dL Est GFR (CKD-EPI)NonAf (60.0-200.0) Glucose 69 L (74-99) mg/dL POC Glucose (mg/dL) 238 H (70-110) mg/dL Calcium 8.0 L (8.7-10.3) mg/dL 08/05/22 Range/Units 11:06 RBC (4.10-5.20) X 10*6/uL Hgb (12.0-15.0) g/dL Hct (37.2-46.3) % MCV (80.0-97.0) fL MCHC (32.0-37.0) g/dL RDW (11.5-14.5) % Immature Gran # (0.00-0.04) X 10*3/uL Neutrophils # (1.80-7.70) X 10*3/uL Lymphocytes # (0.90-5.00) X 10*3/uL Eosinophils # (0.04-0.35) X 10*3/uL Sodium (135-145) mmol/L Chloride (96-109) mmol/L BUN (7-17) mg/dL Est GFR (CKD-EPI)NonAf (60.0-200.0) Glucose (74-99) mg/dL POC Glucose (mg/dL) 266 H (70-110) mg/dL Calcium (8.7-10.3) mg/dL Microbiology - Last 24 Hours (Table) 07/30/22 15:57 Blood Culture - Preliminary Blood No Growth after 120 hours 07/30/22 16:12 Blood Culture - Preliminary Blood No Growth after 120 hours 08/02/22 15:28 Urine Culture - Final Urine,Catheterized Jacki albicans 08/03/22 12:40 Gram Stain - Preliminary Abdomen Wound Culture - Preliminary Gram Neg Bacilli Assessment and Plan (1) Abdominal wall cellulitis Narrative/Plan: Patient seems to be doing about the same. Continue antibiotics. Continue local wound care. Current Visit: Yes Status: Acute Code(s): L03.311 - CELLULITIS OF ABDOMINAL WALL SNOMED Code(s): 71352959
[2022-08-05] MEDS ORDERED: VANCOMYCIN 1,750 MG in SODIUM CHLORIDE 0.9% 500 ML 500 ML IVPB ONE (14:00)
[2022-08-05] MEDS: HYDROmorphone 1 MG/ML 1 ML SYRINGE IVP PRN ×2 (14:11→21:54)
[2022-08-05 16:03] LABS: Glucose,Whole Blood 99 mg/dL (70-110)
[2022-08-05 21:38] LABS: Glucose,Whole Blood 104 mg/dL (70-110)
[2022-08-05] MEDS: ATORVASTATIN 40 MG TAB PO SCH (21:43)
[2022-08-06 07:03] LABS: Glucose,Whole Blood 77 mg/dL (70-110)
--- NOTE | 2022-08-06 07:11 | PN ---
PROGRESS NOTE SUBJECTIVE: This is a 62-year-old woman, who was admitted with right inguinal abdominal wound, extensive necrotic wound, which was debrided. The patient is also refusing medications and even food today. The family is trying to get the legal guardianship. No chest pain. No palpitation. PHYSICAL EXAMINATION: GENERAL: Confused. VITAL SIGNS: Pulse 72, blood pressure 115/90, respiration 17. CHEST: A few scattered rhonchi. CARDIOVASCULAR: S1, S2. ABDOMEN: Soft, nontender. Abdominal wound present. LABORATORY DATA: Reviewed. Hemoglobin 7.8. The rest of the labs reviewed. ASSESSMENT: 1. Right inguinal abdominal wall abscess with severe cellulitis, status post incisional debridement. 2. Persistent atrial fibrillation. 3. Acute COVID-19 infection. 4. History of cerebrovascular accident. 5. History of noncompliance. 6. Multiple medical issues. RECOMMENDATIONS: To continue current medications, symptomatic treatment. Otherwise, as mentioned earlier will closely follow with Social Work and Case Management for guardianship and overall prognosis extremely guarded. Further recommendations to follow. MMODL / IJN: [id number] /
[2022-08-06] MEDS: INSULIN ASPART (NovoLOG) 100 UNIT/ML VIAL SQ SCH ×3 (08:21→17:26)
[2022-08-06] MEDS: SODIUM FERRIC GLUCONAT-SUCROSE 125 MG in SODIUM CHLORIDE 0.9% 100 ML IVPB SCH (08:27)
[2022-08-06] MEDS: ASCORBIC ACID 500 MG TAB PO SCH (08:28)
[2022-08-06] MEDS: DIGOXIN 125 MCG TAB PO SCH (08:28)
[2022-08-06] MEDS: LEVOTHYROXINE 100 MCG TAB PO SCH (08:28)
[2022-08-06] MEDS: PANTOPRAZOLE 40 MG/10 ML VIAL IV SCH (08:28)
[2022-08-06] MEDS: ESCITALOPRAM 10 MG TAB PO SCH (08:28)
[2022-08-06] MEDS: DEXAMETHASONE SOD PHOSPHATE 10 MG/ML 1 ML VIAL IV SCH (08:28)
[2022-08-06] MEDS: ZINC SULFATE 220 MG CAP PO SCH (08:28)
[2022-08-06] MEDS: METOPROLOL TARTRATE 50 MG TAB PO SCH (08:28)
[2022-08-06] MEDS: FAMOTIDINE 20 MG TAB PO SCH (08:28)
[2022-08-06] MEDS: OXYBUTYNIN 10 MG TAB.ER.24 PO SCH (08:28)
[2022-08-06] MEDS: MULTIVITAMINS, THERA LIQUID 237 ML BOTTLE PO SCH (08:29)
[2022-08-06] MEDS: PSYLLIUM HUSK 100% 6 GM PACKET PO SCH (08:29)
[2022-08-06] MEDS: LACTATED RINGERS 1,000 ML IV SCH (08:51)
[2022-08-06] MEDS: ALBUTEROL HFA INHALER INHALATION SCH ×3 (09:30→17:04)
[2022-08-06] MEDS: CEFTOLOZANE/TAZOBACTAM 1.5 GM in SODIUM CHLORIDE 0.9% 100 ML IV SCH (09:57)
[2022-08-06 11:46] LABS: Glucose,Whole Blood 107 mg/dL (70-110)
--- NOTE | 2022-08-06 11:47 | P.PN ---
Subjective Progress Note Date: 08/06/22 CHIEF COMPLAINT: Groin wound HISTORY OF PRESENT ILLNESS: Patient is postop day #3 status post debridement of pannus and right groin. Patient is lying in bed. She has no new complaints. She has been in bowel movements. Her pain is controlled. Afebrile. Cr 0.9 PHYSICAL EXAM: VITAL SIGNS: Reviewed GENERAL: Well-developed in no acute distress. HEENT: No sclera icterus. Extraocular movements grossly intact. Moist buccal mucosa. Head is atraumatic, normocephalic. Hears conversational speech. No nasal drainage. NECK: Supple without lymphadenopathy. CHEST: Non-labored respirations and equal bilateral excursions. CARDIOVASCULAR: Palpable 2+ radial pulses. ABDOMEN: Soft. Obese. Nondistended. Dressing patient's pannus is clean dry and intact MUSCULOSKELETAL: No clubbing or cyanosis. NEUROLOGIC: No focal or lateralizing signs. Cranial nerves II through XII grossly intact. PSYCH: Appropriate affect. Alert and oriented to person, place and time. SKIN: Well perfused. Good skin turgor. ASSESSMENT: 1. Complex abdominal pannus wound with necrosis 38 x 12 cm 2. History of uterine cancer and radiation 3. Morbid obesity due to excess calories, BMI 48.9 4. Panniculitis, over 50 pounds 5. Recent cerebrovascular accident 6. Atrial fibrillation with rapid ventricular response 7. Hypothyroidism 8. Insulin-dependent diabetes type 2 with retinopathy 9. Gastroesophageal reflux disease 10. Hyperlipidemia 11. Chronic anticoagulation 12. Complex right groin growing, 20 x 12 cm 13. Complex pubic wound 8 x 10 cm 14. Coronavirus positive pneumonia PLAN: -Continue local wound care -Continue antibiotics -Continue supportive care -Continue high protein diet Physician Transition Advisor note has been reviewed by physician. Signing provider agrees with the documented findings, assessment, and plan of care. 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 She is status post wide debridement of pannus. No current complaints. ROS: No reports of nausea and vomiting. No fevers or chills. No new chest pain. PHYSICAL EXAM: VITAL SIGNS: Reviewed CONSTITUTIONAL: Well developed and in no acute distress. EYES: Conjuctivae without sclera icterus. Extraocular movements grossly intact. HEAD, EARS, NOSE, THROAT: Moist buccal mucosa. Head is atraumatic, normocephalic. Hears conversational speech. No nasal drainage. RESPIRATORY: Non-labored respirations and equal bilateral excursions. CARDIOVASCULAR: Palpable 2+ radial pulses. ABDOMEN: Resting comfortably. Wet-to-dry dressings of the abdomen. MUSCULOSKELETAL: No gross deformity of the lower extremities noted. No clubbing. No cyanosis. SKIN: Good skin turgor. Well perfused. NEUROLOGIC: Cranial nerves II through XII grossly intact. No focal or lateralizing signs. PSYCH: Flat affect. Alert and oriented to person, place and time. CLINICAL LABS: Reviewed. Hemoglobin 7.8. Last albumin 1.7. ASSESSMENT: 1. Complex abdominal groin wound 2. Panniculitis status post debridement 3. History of radionecrosis pelvis uterine cancer 4. Morbid obesity excess calories, BMI 55.5 PLAN: 1. Patient has recurrent infections of the pannus for which panniculectomy woul d be ideal however nutrition suboptimal last albumin 1.7. Recommend albumin of 4.0 prior to panniculectomy. 2. Continue wet-to-dry dressings Objective - Vital Signs Vital signs: Vital Signs Temp 97.9 F 08/06/22 10:00 Pulse 79 08/06/22 10:00 Resp 18 08/06/22 10:00 BP 118/71 08/06/22 10:00 Pulse Ox 96 08/06/22 10:00 FiO2 Intake & Output 08/05/22 08/06/22 08/06/22 18:59 06:59 18:59 Output Total 650 Balance -650 Output: Urine 650 Other: Voiding Method Indwelling Catheter Indwelling Catheter # Bowel Movements 1 - Labs CBC & Chem 7: 08/05/22 05:31 08/06/22 07:38 Labs: Microbiology - Last 24 Hours (Table) 08/03/22 12:40 Gram Stain - Preliminary Abdomen Wound Culture - Preliminary Gram Neg Bacilli Enterococcus faecium VRE 07/30/22 16:12 Blood Culture - Final Blood No Growth after 144 hours 07/30/22 15:57 Blood Culture - Final Blood No Growth after 144 hours 08/03/22 12:40 Anaerobic Culture - Preliminary Abdomen
[2022-08-06] MEDS: HYDROmorphone 1 MG/ML 1 ML SYRINGE IVP PRN (14:35)
[2022-08-06 14:41] VITALS: BP 121/60; PULSE 64; RESP 16; TEMP 97.6
[2022-08-06 16:59] LABS: Glucose,Whole Blood 125 mg/dL (70-110)
--- NOTE | 2022-08-07 10:48 | PN ---
PROGRESS NOTE SUBJECTIVE: This is a 62-year-old woman, who was admitted with significant inguinal wound, had debridement. The patient was refusing all the treatment. Family is going for legal guardianship and possible comfort measures. No chest pain. No palpitations. The most recent cultures showed Enterococcus faecium, VRE. OBJECTIVE: VITAL SIGNS: Pulse is 79, blood pressure 118/70, respirations 18. HEENT: Conjunctivae normal. NECK: n. CARDIOVASCULAR: S1, S2 . RESPIRATIONS: A few scattered rhonchi. ABDOMEN: Soft. Abdominal wall wound. LABS: Reviewed. ASSESSMENT: 1. Right inguinal abdominal wall abscess and severe cellulitis, status post excisional debridement. 2. Persistent atrial fibrillation. 3. Acute COVID-19 infection. 4. Multiple medical issues. RECOMMENDATIONS: Recommend to continue current medications, symptomatic treatment as mentioned earlier. We will await for the family to make decision about the legal guardianship and re- evaluation of the code status. Prognosis is extremely guarded and as mentioned earlier. Patient is refusing all the medications and even food at this time. MMODL / IJN: [id number] / MTDD
--- NOTE | 2022-08-08 08:46 | CDI ---
Documentation Clarification Form Date: 08/08/22 From: Maribell Jernigan Admit Date: 07/30/2022 07:23:00 PM Patient Name: Fiorella Smith Visit Number: [id number] Discharge Date: 08/06/2022 06:21:00 PM ATTENTION: The Clinical Documentation Specialists (CDI) and [facility] Coding Staff appreciate your assistance in clarifying documentation. Please respond to the clarification below the line at the bottom and electronically sign. The CDI & [facility] Coding staff will review the response and follow-up if needed. Please note: Queries are made part of the Legal Health Record. If you have any questions, please contact the author of this message via ITS. Dr. Yovani Guaman, Bilateral buttock pressure ulcer Stage II, POA and right heel pressure ulcer Stage II, POA are documented by Wound Care on 08/01. Based on this information and the findings below, is there an additional diagnosis that is clinically appropriate for this patient? History/Risk Factors: right inguinal abdominal wall abscess with severe cellulitis, radiation necrosis, acute COVID, persistent atrial fibrillation, morbid obesity w BMI 55.5, severe PCM Clinical Indicators: see pressure ulcer assessments Location: bilateral buttocks, right heel Wound description: refused dressing change Treatment: incontinence care and zinc paste, specialty bed, high protein/high calorie diet Is there an additional diagnosis that is clinically appropriate for this patient? [ ] Bilateral buttock Pressure Ulcer Stage 2, POA [ ] Right heel Pressure Ulcer Stage 2, POA [ ] [insert location of ulcer] Deep tissue injury [ ] Other condition, please specify [ ] Unable to determine Clinical Definitions: Stage 1 Pressure Ulcer: intact skin, non-blanching redness of local area Stage 2 Pressure Ulcer: Partial thickness, loss of dermis, pink wound bed Stage 3 Pressure Ulcer: Full thickness tissue loss Stage 4 Pressure Ulcer: Full thickness tissue loss with exposed bone, tendon, or muscle. Unstageable pressure ulcer: Full thickness tissue loss in which the base of the ulcer is covered by slough (yellow, matamoros, wise, green or brown) and/or eschar (matamoros, brown or black) in the wound bed. Bilateral buttock Pressure Ulcer Stage 2, ELIZA GEIGERD
--- NOTE | 2022-08-08 09:07 | CDI ---
Documentation Clarification Form Date: 08/08/22 From: Maribell Jernigan Admit Date: 07/30/2022 07:23:00 PM Patient Name: Fiorella Smith Visit Number: [id number] Discharge Date: 08/06/2022 06:21:00 PM ATTENTION: The Clinical Documentation Specialists (CDI) and [facility] Coding Staff appreciate your assistance in clarifying documentation. Please respond to the clarification below the line at the bottom and electronically sign. The CDI & [facility] Coding staff will review the response and follow-up if needed. Please note: Queries are made part of the Legal Health Record. If you have any questions, please contact the author of this message via ITS. Dr. Yovani Guaman, UTI is documented in the ED Note and patient has a chronic indwelling Sutherland catheter. Additional clarification regarding the etiology of the UTI is requested. History/Risk Factors: right inguinal abdominal wall abscess with severe cellulitis, radiation necrosis, acute COVID, persistent atrial fibrillation, morbid obesity w BMI 55.5, severe PCM Clinical Indicators: Patient has history of recurrent UTI's. Urinalysis: appearance turbid, specific gravity 1.039, leukocyte esterase large, RBC 100, WBC 84, casts 13 Urine culture: Jacki albicans Lab results: WB 10.53 (08/04), neutrophils 9.9 (08/04) procalcitonin 0.17 Treatment: IV Unasyn & IV Vancomycin Please clarify the etiology of the UTI, if known: [ ] Sutherland catheter [ ] UTI not related to catheter/urostomy [ ] Other condition, please specify [ ] Unable to determine Sutherland catheter MTDD
--- NOTE | 2022-08-10 09:40 | CDI ---
Documentation Clarification Form Date: 08/10/22 From: Maribell Jernigan Admit Date: 07/30/2022 07:23:00 PM Patient Name: Fiorella Smith Visit Number: [id number] Discharge Date: 08/06/2022 06:21:00 PM ATTENTION: The Clinical Documentation Specialists (CDI) and [facility] Coding Staff appreciate your assistance in clarifying documentation. Please respond to the clarification below the line at the bottom and electronically sign. The CDI & [facility] Coding staff will review the response and follow-up if needed. Please note: Queries are made part of the Legal Health Record. If you have any questions, please contact the author of this message via ITS. Dr. Yovani Guaman, Right heel pressure ulcer Stage II, POA is documented by Wound Care on 08/01. Additional clarification regarding the stage of the pressure ulcer is requested. History/Risk Factors: right inguinal abdominal wall abscess with severe cellulitis, radiation necrosis, acute COVID, persistent atrial fibrillation, morbid obesity w BMI 55.5, severe PCM Clinical Indicators: see pressure ulcer assessments Location: right heel Wound description: refused dressing change Treatment: zinc paste, specialty bed, high protein/high calorie diet Please clarify the stage of pressure ulcer right heel: [ ] Right heel Pressure Ulcer Stage 2, POA [ ] Unstageable Pressure ulcer [insert location] [ ] Other condition, please specify [ ] Unable to determine Clinical Definitions: Stage 1 Pressure Ulcer: intact skin, non-blanching redness of local area Stage 2 Pressure Ulcer: Partial thickness, loss of dermis, pink wound bed Stage 3 Pressure Ulcer: Full thickness tissue loss Stage 4 Pressure Ulcer: Full thickness tissue loss with exposed bone, tendon, or muscle. Unstageable pressure ulcer: Full thickness tissue loss in which the base of the ulcer is covered by slough (yellow, matamoros, wise, green or brown) and/or eschar (matamoros, brown or black) in the wound bed. Right heel Pressure Ulcer Stage 2, POA MTDD
== END 2022-08-06 18:21 | disposition hospice, inpatient (51) | DRG 570 ==
LOC: EC 14:59 → 4SSUR 19:23
PROVIDERS: ADMIT Internal Medicine; ATTEND Internal Medicine
PROC: 8E0ZXY6 Isolation (ICD-10-PCS; 2022-07-30)
PROC: 30233N1 Transfusion of Nonautologous Red Blood Cells into Peripheral Vein, Percutaneous Approach (ICD-10-PCS; 2022-08-02)
PROC: 0JB80ZZ Excision of Abdomen Subcutaneous Tissue and Fascia, Open Approach (ICD-10-PCS; principal; 2022-08-03 16:15)
PROC: 0JD80ZZ Extraction of Abdomen Subcutaneous Tissue and Fascia, Open Approach (ICD-10-PCS; principal; 2022-08-03 16:15)
DX: L03.311 Cellulitis of abdominal wall (principal); E43 Unspecified severe protein-calorie malnutrition; J12.82 Pneumonia due to coronavirus disease 2019; U07.1 COVID-19; T83.511A Infection and inflammatory reaction due to indwelling urethral catheter, initial encounter; Z68.43 Body mass index [BMI] 50.0-59.9, adult; I48.19 Other persistent atrial fibrillation; N39.0 Urinary tract infection, site not specified; J98.11 Atelectasis; Z16.24 Resistance to multiple antibiotics; D63.8 Anemia in other chronic diseases classified elsewhere; L89.312 Pressure ulcer of right buttock, stage 2; L89.322 Pressure ulcer of left buttock, stage 2; L89.612 Pressure ulcer of right heel, stage 2; E11.319 Type 2 diabetes mellitus with unspecified diabetic retinopathy without macular edema; I11.9 Hypertensive heart disease without heart failure; E66.01 Morbid (severe) obesity due to excess calories; Z79.4 Long term (current) use of insulin; L02.214 Cutaneous abscess of groin; L59.8 Other specified disorders of the skin and subcutaneous tissue related to radiation; M79.3 Panniculitis, unspecified; B95.2 Enterococcus as the cause of diseases classified elsewhere; B96.1 Klebsiella pneumoniae [K. pneumoniae] as the cause of diseases classified elsewhere; K40.90 Unilateral inguinal hernia, without obstruction or gangrene, not specified as recurrent; E78.5 Hyperlipidemia, unspecified; R31.9 Hematuria, unspecified; K21.9 Gastro-esophageal reflux disease without esophagitis; E03.9 Hypothyroidism, unspecified; N39.3 Stress incontinence (female) (male); F32.A Depression, unspecified; G89.29 Other chronic pain; M54.50 Low back pain, unspecified; Z91.19 Patient's noncompliance with other medical treatment and regimen; Z99.81 Dependence on supplemental oxygen; Z79.01 Long term (current) use of anticoagulants; Z79.891 Long term (current) use of opiate analgesic; Z79.2 Long term (current) use of antibiotics; Z79.890 Hormone replacement therapy; Z79.899 Other long term (current) drug therapy; Z78.9 Other specified health status; Z87.891 Personal history of nicotine dependence; Z87.440 Personal history of urinary (tract) infections; Z85.43 Personal history of malignant neoplasm of ovary; Z85.41 Personal history of malignant neoplasm of cervix uteri; Z92.3 Personal history of irradiation; Z92.21 Personal history of antineoplastic chemotherapy; Z86.19 Personal history of other infectious and parasitic diseases; Z86.73 Personal history of transient ischemic attack (TIA), and cerebral infarction without residual deficits; Z71.3 Dietary counseling and surveillance; Y84.2 Radiological procedure and radiotherapy as the cause of abnormal reaction of the patient, or of later complication, without mention of misadventure at the time of the procedure; Y84.6 Urinary catheterization as the cause of abnormal reaction of the patient, or of later complication, without mention of misadventure at the time of the procedure
CPT/HCPCS: 36415; 74177; 80048; 80053; 80162; 80202; 81001; 82565; 83036; 83605; 83690; 84132; 84145; 85025; 85610; 85730; 86140; 86850; 86900; 86901; 86920; 87040; 87070; 87075; 87077; 87086; 87186; 87205; 87635; 88304; 93005; 94640; 94760; 96365; 96366; 96375; 96376; 99285

== ENCOUNTER 2022-08-06 16:27 | Inpatient (IN) | payer MEDICAID ==
[2022-08-06] MEDS ORDERED: LORazepam 0.5 MG TAB PO PRN (16:29)
[2022-08-06] MEDS ORDERED: ACETAMINOPHEN TAB 325 MG TAB PO PRN (16:29)
[2022-08-06] MEDS: MORPHINE CONC SOLN 10mg/0.5mL ORAL SYRG SL SCH ×2 (20:54→21:15)
[2022-08-07] MEDS: CEFTOLOZANE/TAZOBACTAM 1.5 GM in SODIUM CHLORIDE 0.9% 100 ML IV SCH ×2 (01:33→08:23)
[2022-08-07] MEDS: MORPHINE CONC SOLN 10mg/0.5mL ORAL SYRG SL SCH ×4 (01:34→12:15)
[2022-08-07 08:49] VITALS: BP 112/67; PULSE 78; RESP 14; TEMP 98.4
--- NOTE | 2022-08-07 12:41 | P.DS ---
Providers Date of admission: 08/06/22 18:24 Attending physician: Glen Dunacn MD Primary care physician: Physician Nonstaff Hospital Course: Final diagnosis Right inguinal abdominal wall abscesses and the severe cellulitis status post excisional debridement Persistent atrial fibrillation Acute COVID-19 fraction Multiple medical issues No code no CPR no event Hospice care Discharge disposition patient be discharged in a stable condition with guarded prognosis to [facility] at this time. History of present illness This patient with the multiple medical issues was admitted with the significant right inguinal abdominal wall abscess and as well as acute COVID-19 fraction. The wound has worsened over time. Surgery performed excisional debridement. Patient was given broad-spectrum IV antibiotics. Cultures are monitored. Infectious disease saw the patient. However patient did not make any improvement at all. Patient also started refusing medications and even foot at this point. The discussion was held with family and they have guardianship was obtained. Ultimately hospice care and comfort measures of proceeded. And at this time the patient be discharged in a stable condition with a guarded prognosis to medical large: The patient is originally from. Please see the medication reconciliation list of medications. On second progress is very guarded for further information please refer to the multiple consults notes and progress notes. Plan - Discharge Summary New Discharge Prescriptions: Continue Ipratropium-Albuterol Nebulize [Duoneb 0.5 mg-3 mg/3 ml Soln] 3 ml INHALATION RT-Q6H Acetaminophen Tab [Tylenol] 650 mg PO Q4H PRN PRN Reason: Fever Discontinued Pro Stat 30 ml PO TID Atorvastatin [Lipitor] 40 mg PO HS@2000 Famotidine [Pepcid] 20 mg PO DAILY tab Ammonium Lactate Lotion [Lac-Hydrin 12% Lotion] 1 applic TOPICAL DAILY@0800 Multivitamins, Thera [Multivitamin (formulary)] 1 tab PO DAILY@0800 fentaNYL 50MCG/HR PATCH [Duragesic 50MCG/HR] 50 mcg TRANSDERM Q72H #1 patch Metoprolol Tartrate [Lopressor] 50 mg PO TID tab Omeprazole 20 mg PO DAILY HYDROcodone/APAP 10-325MG [[place] 10-325] 1 tab PO Q4HR PRN PRN Reason: Pain Metamucil Packet 28% Psyllium 1 packet PO DAILY Escitalopram [Lexapro] 10 mg PO DAILY Ferrous Sulfate [Feosol] 325 mg PO DAILY Ceftolozane/Tazobactam [Zerbaxa 1.5 Gram Vial] 1.5 gm IVPB TID Nitroglycerin Sl Tabs [Nitrostat] 0.4 mg SL Q5M PRN PRN Reason: Chest Pain Levothyroxine Sodium 200 mcg PO DAILY@0800 Oxybutynin ER [Ditropan Xl] 10 mg PO DAILY@0800 Apixaban [Eliquis] 5 mg PO BID@0800,1600 Insulin Lispro [humaLOG Kwikpen] See Protocol SQ ACHS Digoxin [Lanoxin] 125 mcg PO DAILY tab Chlorhexidine Gluconate [Hibiclens] 1 applic TOPICAL HS guaiFENesin [guaiFENesin ER] 600 mg PO Q12H PRN PRN Reason: Congestion guaiFENesin [Diabetic Tussin Ex] 200 mg PO Q4H PRN PRN Reason: Cough Vancomycin/Water For Inj (Peg) [Vancomycin 750 mg/150 ml Bag] 750 mg IV BID Discharge Medication List Acetaminophen Tab [Tylenol] 650 mg PO Q4H PRN 06/22/22 [History] Ipratropium-Albuterol Nebulize [Duoneb 0.5 mg-3 mg/3 ml Soln] 3 ml INHALATION RT-Q6H 07/30/22 [History]
== END 2022-08-07 15:07 | disposition hospice, inpatient (51) | DRG 602 ==
LOC: 4SSUR 18:24
PROVIDERS: ADMIT Internal Medicine; ATTEND Internal Medicine
DX: L02.211 Cutaneous abscess of abdominal wall (principal); I63.532 Cerebral infarction due to unspecified occlusion or stenosis of left posterior cerebral artery; U07.1 COVID-19; I48.19 Other persistent atrial fibrillation; Z68.43 Body mass index [BMI] 50.0-59.9, adult; L03.311 Cellulitis of abdominal wall; Z51.5 Encounter for palliative care; E66.01 Morbid (severe) obesity due to excess calories; R32 Unspecified urinary incontinence; E03.9 Hypothyroidism, unspecified; Z79.890 Hormone replacement therapy; Z85.41 Personal history of malignant neoplasm of cervix uteri; Z92.21 Personal history of antineoplastic chemotherapy; Z92.3 Personal history of irradiation; Z87.440 Personal history of urinary (tract) infections; Z79.84 Long term (current) use of oral hypoglycemic drugs; Z79.899 Other long term (current) drug therapy